=== PATIENT | male | born 1945 | race Caucasian/White ===

== ENCOUNTER 2017-11-25 07:33 | Day surgery (SDC) | payer MEDICARE, SELFPAY ==
[2017-11-25] VITALS (8 sets, daily range): BP systolic 69–115; BP diastolic 42–71; PULSE 59–74; RESP 16; TEMP 35.9–36.4; O2SAT 95–100; BMI 25.2
--- NOTE | 2017-11-25 09:03 | PCM.HP.STD ---
Problem List (1) Screening for intestinal cancer Status: Acute History of Present Illness Date of Admission: 11/25/17 The patient is a 72 year old M who is in a good normal state of health. He denies bright red blood per rectum or melena. He has had a previous colonoscopy by Dr. Houston Walter 10 years ago. He is not on any anticoagulants other than low-dose aspirin which he did stop. He has had no previous anesthesia related or colonoscopy related difficulties. Not had a previous history of deep venous thrombosis. No personal or family history of colon cancer. Past Medical History Allergies No Known Allergies Allergy (Verified 11/23/17 10:15) Home Medications: Ambulatory Orders Medication Instructions Recorded Aspirin [Aspir-Low] 81 mg PO DAILY 11/23/17 Levothyroxine [Synthroid] 175 mcg PO DAILY MDD THYROID 11/23/17 Lisinopril [Prinivil] 10 mg PO DAILY 11/23/17 Ranitidine [Zantac] 150 mg PO PRN PRN 11/23/17 Smoking Status: Never smoker Review of Systems Constitutional: Denies: Weight Change Eyes: Denies: Blurred vision, Vision Change HEENT: Denies: Ear Pain, Eye Pain Cardiovascular: Denies: Chest Pain, Claudication Respiratory: Denies: Cough, Shortness of Breath Gastrointestinal: Denies: Hematemesis, Hematochezia Genitourinary: Denies: Dysuria, Hematuria Musculoskeletal: Denies: Leg Pain Skin: Denies: Jaundice Neurological: Denies: Confusion Psychiatric: Denies: Depression Endocrine: Denies: Change in Body Habitus Hematologic/ Lymphatic: Denies: Easy Bleeding VTE Information - Inpt Only VTE Present on Admission: No Patient Problems: Active and Suspected Problems Screening for intestinal cancer (Acute) - Physical Exam General: Alert, Oriented x3, Cooperative HEENT: Atraumatic Oral: Moist Mucosa Neck: Supple Lungs: Clear to auscultation Cardiovascular: Regular rate Abdomen: Bowel Sounds Present, Soft Extremities: No clubbing Neurological: Cranial nerves II-XII grossly intact Psych/Mental Status: Normal Affect Vital Signs Temp Pulse Resp BP Pulse Ox 97 F L 73 16 115/71 100 11/25/17 08:00 11/25/17 08:00 11/25/17 08:00 11/25/17 08:00 11/25/17 08:00 Oxygen Delivery Method Room Air Weight: 176 lb 2.389 oz Body Mass Index (BMI) 25.2 Assessment/Plan Active and Suspected Problems Screening for intestinal cancer (Acute) Colonoscopy with possible biopsy or polypectomy is indicated. The patient is aware of the technique, benefits, risks and alternatives. He has had an opportunity to ask and have questions answered. We will proceed at his discretion. Cc: Dr. Dakota Bradshaw M.D., F.A.C.S.
--- NOTE | 2017-11-25 09:26 | PCM.OPRPT ---
Problem List (1) Screening for intestinal cancer Status: Acute Report of Operation Date of Procedure: 11/25/17 Pre-Operative Diagnosis: Screening for intestinal malignancy Post-Operative Diagnosis: Normal colon Surgery/Procedure Performed:: Colonoscopy Description of Surgical Findings:: Timeout and informed consent was obtained. 72-year-old gentleman was taken to the endoscopy room. He was placed in a left lateral decubitus position. Throughout the procedure total of 100 mg Demerol and 4 mg of Versed were given as intravenous sedation. Digital rectal exam performed. Normal anal tone. Minimal hemorrhoidal changes. 2+ smooth prostate. Flexible colonoscope inserted in the rectum advanced to a slightly tortuous sigmoid colon. The scope was then advanced through the transverse colon. By placing the patient supine the scope was advanced to the cecum. The cecum ileocecal valve area was felt to be nicely achieved. Bowel prep was adequate. There was still some liquid stool located throughout the colon and some small parts of solid stool. Most of this could be irrigated and aspirated. The scope was carefully withdrawn from the ascending colon transverse colon descending colon and sigmoid colon. Scope was retroflexed within the rectum. No acute abnormalities noted. Excess fluid and air was aspirated free the procedure was completed with the patient tolerating it well. Impression Normal colonoscopy Next screening exam recommended in 10 years. Previous screening exam was 10 years ago. Cc: Dr. Duncan Medications were given at 0909. The scope was inserted 0912. The cecum was reached at 0917. The procedure was completed at 0923. Jhonatan Bradshaw M.D., F.A.C.S. Type of Anesthesia:: IV Sedation
== END 2017-11-25 10:35 | disposition home or self-care (01) ==
LOC: EN 07:37 → AC 07:38
PROVIDERS: Family Provider Family Medicine; PCP Family Medicine; Visit Provider Surgery
PROC: 0DJD8ZZ Inspection of Lower Intestinal Tract, Via Natural or Artificial Opening Endoscopic (ICD-10-PCS; CPT 45378; principal; 2017-11-25 08:40)
DX: Z12.11 Encounter for screening for malignant neoplasm of colon (principal); I10 Essential (primary) hypertension; K21.9 Gastro-esophageal reflux disease without esophagitis; E06.9 Thyroiditis, unspecified; R73.03 Prediabetes; Z79.82 Long term (current) use of aspirin; Z79.899 Other long term (current) drug therapy
CPT/HCPCS: G0121; J7120

== ENCOUNTER 2019-10-22 05:24 | Day surgery (SDC) | payer MEDICARE, SELFPAY ==
--- NOTE | 2019-09-25 01:20 | HP_ITS ---
Intake Vital Signs 09/25/19 Body Mass Index (BMI) 25.2 09/25/19 Height 5 ft 8 in 09/25/19 Weight: 180 lb 09/25/19 Body Mass Index (BMI) 27.3 09/25/19 Blood Pressure 151/77 H 09/25/19 Blood Pressure Location Rt brachial 09/25/19 Blood Pressure Position Sitting 09/25/19 Respiratory Rate 16 09/25/19 Pulse Rate 70 09/25/19 Pulse Source Monitor 09/25/19 Temperature 98.5 F 09/25/19 Temperature Source Oral 09/25/19 Pulse Ox 98 09/25/19 Oxygen Delivery Method room air Intake Visit Reasons: Inguinal Hernia Meat Specialist Required: No Is patient in pain?: No Allergies No Known Allergies Allergy (Verified 11/23/17 10:15) Medications Aspirin [Aspir-Low] 81 mg PO DAILY 11/23/17 [History Confirmed 09/25/19] Levothyroxine [Synthroid] 175 mcg PO DAILY MDD THYROID 11/23/17 [History Confirmed 09/25/19] PFSH Medical History (Updated 09/25/19 @ 13:19 by Russell Bradshaw MD) Right inguinal hernia (Acute) Hypothyroid (Acute) Nocturia (Acute) Internal hemorrhoids (Acute) GERD (gastroesophageal reflux disease) (Acute) Erectile dysfunction (Acute) Diverticulosis (Acute) Surgical History (Updated 09/25/19 @ 13:08 by Renee Whalen) History of hydrocelectomy (Acute) Hx of colonoscopy (Acute) Family History Mother Asthma Father Heart disease High cholesterol Social History (Updated 09/25/19 @ 13:20 by Russell Bradshaw MD) Smoking Status: Never smoker second hand exposure: No alcohol intake: never substance use type: does not use caffeine: Yes what type of physical activity do you participate in: walking, aerobics, weight training frequency: daily HPI HPI HPI: RUSSELL BETH, is a 73 M who presents to the office today for HPI HPI Surgical H&P: Yes HPI: RUSSELL BETH, is a 73 M who presents to the office today for surgical consultation regarding a right inguinal hernia. The patient currently resides at [address] [facility] 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 He was on the side of an embankment and felt a tug and pull and a strain in the right groin. Subsequently he detected up palpable bulge and mass. He has had previous bilateral hydrocele surgery. He has not had any previous inguinal hernia surgery. He is very physically active. ROS General General: No weight change, appetite, fatigue, colon cancer, breast cancer or weakness HEENT HEENT: No difficulty swallowing, eye injury, eye surgery, swollen glands or hoarseness Endo Endocrine: Yes thyroid disease; no diabetes mellitus, thyroid cancer, Hair loss, heat intolerance or cold intolerance Skin Skin: No rash or changing moles Musc Musculoskeletal: Yes back problems and arthritis; no rheumatoid arthritis, gout or joint pain Cardio Cardiovascular: No murmur, pacemaker, heart disease, atrial fibrillation, high blood pressure, heart attack, heart stent, palpitations, shortness of breat with exertion or chest pain Psych Psychiatric: No depression, anxiety or hearing voices Resp Respiratory: No shortness of breath, No sleep apnea, No cough, No COPD, No asthma, No emphysema, No wheezing Gastro Gastrointestinal: Yes abdominal pain, No nausea or vomiting, No diarrhea, No constipation, No blood in stool, No acid reflux, No hemorrhoids, No ulcers, No gallbladder problem, No black,tarry stools Margarito Hematologic: Yes blood thinners, No blood disorders, No bleeding, No anemia, No blood clots Neuro Neurologic: No system reviewed and no additional complaints, except as docu, No as per HPI, No abnormal walking, No abnormal hearing, No abnormal movements, No abnormal speech, No behavioral changes, No burning sensations, No confusion, No seizure-like activity, No unsteadiness, No dizziness, No localized weakness, No frequent falls, No headache(s), No lack of coordination, No loss of vision, No memory loss, No numbness, No other visual disturbances, No radiating pain, No restless legs, No sensory deficit, No fainting, No tingling, No tremor(s), No weakness, No other Exam Const General: cooperative, healthy appearing, comfortable Nutritional Appearance: average body habitus Orientation: alert, awake [facility] Head: normal to inspection Eyes General: appearance normal, both eyes and all related structures Resp Effort & Inspection: normal respiratory effort Auscultation: clear to auscultation bilaterally Cardio Rate: regular rate Rhythm: regular rhythm Heart Sounds: no murmurs GI Palpation: soft, no hepatosplenomegaly Auscultation: normal bowel sounds Other: Testicles are descended bilaterally with palpable hydrocele scar sacs Obvious slightly tender right inguinal hernia but reducible Left groin solid and intact Musc Cervical Spine: normal cervical lordosis Neuro Cognition: normal cognition Extrem General: no calf tenderness bilaterally Assessment & Plan Problems 1. Right inguinal hernia K40.90 Plan Symptomatic right inguinal hernia. The patient is very healthy and physically very active. I propose for him a laparoscopic right inguinal herniorrhaphy with mesh and I discussed technique, benefit, risk and alternatives. He has had an opportunity to ask and have questions answered. I believe that this would allow him the quickest pathway back to a more routine vigorous lifestyle. I very much appreciate the kind opportunity of assisting with his surgical care Cc: Dr. Efrain Bradshaw M.D., F.A.C.S. Coding Level of Care Code Off vis,est,level 4 Diagnoses Right inguinal hernia K40.90 09/25/19 1320 <Electronically signed by Russell riley MD> Date _ Russell Bradshaw MD I have re-examined the patient. There are no clinical changes since date of exam.
[2019-09-25 13:20] VITALS: BMI 25.2
--- NOTE | 2019-10-16 10:31 | EKG12_ITS ---
Test Reason : PREOP Blood Pressure : / mmHG Vent. Rate : 063 BPM Atrial Rate : 063 BPM P-R Int : 182 ms QRS Dur : 094 ms QT Int : 384 ms P-R-T Axes : 036 003 013 degrees QTc Int : 392 ms Normal sinus rhythm with sinus arrhythmia Normal ECG Confirmed by JESSICA MUNROE, HENNY ([id number]), industrial editor SELENE ROMERO ([id number]) on 10/18/2019 11:19:53 AM Referred By: Jhonatan Bradshaw Confirmed By:HENNY LOPEZ MD
[2019-10-16 10:48] LABS: Hemoglobin 14.1 g/dL (13.0-16.5); Mean Corp Hgb Conc 33.6 g/dL (32-36); Mean Corpuscular Hgb 31.9 pg (27.0-32.0); Mean Platelet Vol. 9.5 fl (6.2-12.0); Platelet Count 219 K/mm3 (150-450); RBC Distribution Width CV 12.8 % (11.6-14.6); RBC Distribution Width SD 45.1 fl (35.1-43.9); Red Blood Count 4.42 M/mm3 (4.6-6.2); White Blood Count 6.4 K/mm3 (4.4-11.0)
[2019-10-16 11:32] LABS: Anion Gap 4 (5-15); BUN 20 mg/dL (7-18); BUN/Creat Ratio 21.3 RATIO (10-20); Calcium,Total 8.9 mg/dL (8.5-10.1); Chloride 103 mmol/L (98-107); Creatinine, Serum 0.94 mg/dL (0.70-1.30); EST Glomerular Filtration Rate 84 mL/min (>60); Est Glom Filt Rate - Afr Amer 102 mL/min (>60); Glucose 95 mg/dL (74-106); Potassium 4.2 mmol/L (3.5-5.1); Sodium Level 137 mmol/L (136-145)
[2019-10-22 05:50] VITALS: BP 133/76; PULSE 71; RESP 14; TEMP 36.4; O2SAT 100; BMI 27.0
[2019-10-22] MEDS: Lactated Ringers 1,000 ML 125 ML IV ×2 (06:17→08:34)
[2019-10-22] MEDS: Cefazolin 2 GM in 0.9% Normal Saline 100 ML IV (07:12)
--- NOTE | 2019-10-22 07:18 | DCINST_ITS ---
Discharge Diet: Light diet - advance as tolerated - if you have questions about your diet instructions, please talk to you doctor. Discharge Activity: May Not Drive - for 1 week or while taking narcotic pain medicine. May shower in (days): 1 Lifting Restrictions: 10 pounds Call your doctor if your incision/area has: Continuous Slow Oozing, Sudden Increased Bleeding, Increased Pain/ Swelling, Increased Redness, Foul Smelling Discharge Call your doctor if you observe: Fever of 101 or Higher Suture Line Care: Avoid Pulling/Pushing, Avoid Pinching/Bending Additional Dressing/Incision Instructions:: Change or remove dressing in 4 days. Leave steri-strips in place for 1 week. Allergies/Adverse Reactions: Allergies No Known Allergies Allergy (Verified 10/22/19 05:49) Medications to take at Discharge Aspirin [Aspir-Low] 81 mg PO DAILY 11/23/17 Levothyroxine [Synthroid] 175 mcg PO DAILY MDD THYROID 11/23/17 Orders to be completed after discharge: 12 Lead EKG [CVS] Time Frame: 10/15/19, Facility: [facility], Location: Cardiovascular Services Basic Metabolic Profile (BMP) Time Frame: 10/15/19, Facility: [facility], Location: Laboratory CBC-Complete Blood Cnt No Diff Time Frame: 10/15/19, Facility: [facility], Location: Laboratory Thyroid Stim Hormone (TSH) Time Frame: 10/15/19, Facility: [facility], Location: Laboratory Primary Care Physician: Efrain Peters DO [Primary Care Provider] - Test Results: Test results from this visit will be discussed in further detail at your follow- up appointment, if applicable. Please Follow Up With: Jhonatan Bradshaw MD - [phone] When: Call to make an appointment to be seen in about 10 days.
--- NOTE | 2019-10-22 08:11 | PCM.OPRPT ---
Problem List (1) Right inguinal hernia Status: Acute Report of Operation Date of Procedure: 10/22/19 Pre-Operative Diagnosis: Right inguinal hernia Post-Operative Diagnosis: Indirect right inguinal hernia, cord lipoma Surgery/Procedure Performed:: Laparoscopic right inguinal herniorrhaphy. Bard 3D max right extra-large. Lot number [id number]. Reference #[id number]. Expiry date 06/13/2024. Secure strap. Lot number [id number]. Expiry date June 2021 Description of Surgical Findings:: Timeout and informed consent was obtained. 73-year-old gent was taken the operating placement table underwent general endotracheal intubation esthesia. Ancef 2 g given intravenously. The abdomen sterilely prepped and draped. 0.5% Marcaine was used as local anesthetic. Skin sites were pre-anesthetized. Under laparoscopic control an ilioinguinal nerve block was performed on the right as well. A total of 30 cc was used. A vertical infraumbilical incision was created holding sutures of 0 Vicryl placed varies needle inserted saline drop test performed the abdomen is insufflated CO2 to a pressure of 10 minutes mercury pressure 5-minute trochars in place in the right left lower quadrant the eye was inspected. There appeared to be just a small defect at the left internal ring but not a distinct hernia. There was obviously a indirect right inguinal hernia. No other evidence of superficial gross abnormalities. The peritoneum superior lateral to the internal ring on the right was incised carried medially the peritoneum was completely dissected free. There is a rather sizable hernia sac on the right and this had to be completely dissected free and dose so doing a cord lipoma was identified. This was carefully dissected free and were needed hemostasis was obtained with hemo-lock clips. The direct indirect and femoral area was very nicely identified. Very nice generous dissection was performed. I elected to secure the area with an extra large 3D max mesh. It was placed so as to overlie the defect area and nicely set into the position covering the internal ring and direct space and femoral area. I secured it medially superiorly and laterally with secure strap. I approximated the peritoneum to itself using the same device. Complete obliteration to the mesh was achieved. The trochars were removed under visualization. The abdomen was allowed to deflate of the CO2. Because of the patient's very vigorous lifestyle elected to secure the umbilical site with a [id number] suture of 0 Nurolon. Skin edges approximated up to 4 Monocryl subdermal stitches. Steri-Strips Telfa and OpSite dressings applied. Sponge and instrument and needle counts reported to the surgeon be correct. Blood loss minimal. Specimens none. Drains none. Blood loss minimal. The patient was taken to the recovery area in satisfactory condition without apparent complication Jhonatan Bradshaw M.D., F.A.C.S. Type of Anesthesia:: General Anesthesiologist: Uche Anderson
[2019-10-22] MEDS: Bupivacaine Mpf 0.5% 30 ML VIAL (08:14)
[2019-10-22 08:26] VITALS: BP 129/65; BP 133/76; PULSE 70; RESP 16; TEMP 36.6; O2SAT 94
[2019-10-22 08:30] VITALS: BP 133/76; PULSE 66; RESP 16; O2SAT 98
[2019-10-22 08:45] VITALS: BP 118/57; BP 133/76; PULSE 59; RESP 16; O2SAT 94
[2019-10-22 09:00] VITALS: BP 121/71; BP 133/76; PULSE 60; RESP 16; TEMP 36.2; O2SAT 96
[2019-10-22 10:10] VITALS: BP 116/75; BP 133/76; PULSE 91; RESP 16; TEMP 36.2; O2SAT 95
== END 2019-10-22 10:33 | disposition home or self-care (01) ==
LOC: SDC 05:28 → AC 05:28
PROVIDERS: Family Provider Student in an Organized Health Care Education/Training Program; PCP Student in an Organized Health Care Education/Training Program; Referring Provider Surgery; Visit Provider Surgery
PROC: (CPT 49650; principal; 2019-10-22 06:55)
DX: K40.90 Unilateral inguinal hernia, without obstruction or gangrene, not specified as recurrent (principal); D17.6 Benign lipomatous neoplasm of spermatic cord; E03.9 Hypothyroidism, unspecified; Z79.82 Long term (current) use of aspirin
CPT/HCPCS: 49650; 36415; 80048; 84443; 85027; 93005; J7120; C1781; J2405

== ENCOUNTER 2020-12-15 17:51 | Outpatient (RCR) | payer MEDICARE, SELFPAY | END 2020-12-15 23:59 | LOC: IMMUN 17:51 | PROVIDERS: PCP Student in an Organized Health Care Education/Training Program; Visit Provider Family Medicine | DX: Z23 Encounter for immunization (principal) | CPT/HCPCS: 0011A; 0012A ==

== ENCOUNTER 2024-10-24 14:00 | Emergency (ER) | payer MEDICARE, SELFPAY ==
[2024-10-24 14:01] VITALS: BP 131/77; PULSE 81; RESP 14; TEMP 36.3; O2SAT 98; BMI 23.8
--- NOTE | 2024-10-24 14:02 | ED.RN ---
PT REFUSED TO GIVE SS IN TRIAGE.
--- NOTE | 2024-10-24 14:44 | EX.ED.DYSGE1 ---
HPI History of Present Illness Chief Complaint: Abn Labs Informant: patient Narrative Narrative: Patient is a 78-year-old male presenting for worsening jaundice. 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 He tried to follow-up with his primary care doctor but cannot get in. He ultimately was given referral for [facility] and saw nurse practitioner today. He had outpatient ultrasound and labs which were concerning for obstructive jaundice and he was instructed to come to the emergency room. Patient notes his primary care doctor prescribed Creon 8 days ago which has helped slightly with the symptoms. He notes that he gets intermittent abdominal pain in the right mid abdomen as well as the left mid abdomen/left lower quadrant. He states it is worse when he tries to have a bowel movement. He does not report a change in symptoms with eating. Denies any fever or chills. Denies any nausea or vomiting. Patient states he still has his gallbladder and appendix. Denies any blood in his vomit or stool. He also questions if he could have stomach ulcer this causing the symptoms. [facility] Medical History Right inguinal hernia Hypothyroid Nocturia Internal hemorrhoids GERD (gastroesophageal reflux disease) Erectile dysfunction Diverticulosis Home Medications ?Medication ?Instructions ?Recorded ?Last Taken ?Type aspirin 81 mg tablet,delayed 81 mg PO DAILY 11/23/17 11/20/17 History release levothyroxine 175 mcg tablet 175 mcg PO DAILY 11/23/17 10/22/19 04:30 History 175 MCG pvrskh-bboqeeqo-knxffec cap PO 10/19/24 Unknown History 6,000-19,000-30,000 unit capsule,delayed rel (Creon) Allergy/AdvReac Type Severity Reaction Status Date / Time No Known Allergies Allergy Verified 10/24/24 14:02 Family History Mother Asthma Father Heart disease High cholesterol Surgical History S/P right inguinal hernia repair History of hydrocelectomy Hx of colonoscopy Social History Smoking Status: Never smoker second hand exposure: No alcohol intake: never substance use type: does not use caffeine: Yes what type of physical activity do you participate in: walking, aerobics and weight training frequency: daily ROS ROS ED Constitutional Constitutional ED: Denies chills or fever(s) Cardiovascular Cardiovascular: Denies chest pain Respiratory/Chest Respiratory/Chest: Denies cough or dyspnea Gastrointestinal Gastrointestinal: Reports abdominal pain and diarrhea; Denies melena, nausea or vomiting Genitourinary Genitourinary ED: Denies dysuria Musculoskeletal Musculoskeletal: Denies arthralgias or myalgias Integumentary Reports other Details: jaundice skin Neurologic Neurologic: Denies paresthesias or weakness Hematologic/Lymphatic Hematologic/Lymphatic: Denies easy bleeding or easy bruising EXAM Physical Exam Const Vital Signs: 10/24/24 14:01 10/24/24 14:48 Temperature 97.3 F L Temperature Source Temporal Pulse Rate 81 Respiratory Rate 14 Respiratory Effort Normal Respiratory Pattern Normal Blood Pressure 131/77 H Blood Pressure Mean 95 Pulse Ox 98 Oxygen Delivery Method Room Air Positive well nourished and well developed General Appearance ED: well developed and NAD HEENT Reports moist mucous membranes Eyes PERRL and EOMs intact bilaterally General Eye ED: Yes scleral icterus Neck supple and no JVD Chest Wall inspection of chest normal and palpation of chest normal Resp normal respiratory effort and clear to auscultation bilaterally Cardio regular rate and regular rhythm GI normal to inspection, nondistended, normoactive bowel sounds and non-tender Palpation: soft; Negative for tender or guarding Narrative: Reports dark-colored urine Extremity normal to inspection General Extremety ED: Negative for edema General Extremity: Negative for edema Neuro oriented x3 Sensorium / Orientation: alert Motor Exam: Negative for general weakness Psych mental status grossly normal MDM MDM MDM Narrative Medical decision making narrative: Patient is evaluated for 2 to 3 weeks of change in bowel movements and has developed jaundice. He does have intermittent abdominal pain but is not have any pain at this time. He had outpatient labs which showed elevation of bilirubin, alkaline phosphatase and a mild elevation of his AST and ALT. He had an outpatient ultrasound which showed a contracted stone filled gallbladder, mild intrahepatic biliary ductal dilation and dilated common bile duct. There is no pericholecystic fluid. On arrival patient is resting comfortably. Vital signs are normal. Given that this is more of a painless jaundice concern for obstructing mass. I did speak with Dr. Myers who agrees that patient will likely benefit from admission and ERCP. Will obtain CT to look for any mass and add on CBC and INR. Patient is not have a leukocytosis. CT shows dilated hepatic bile ducts, multiple gallstones and gallbladder wall thickening with a dilated common bile duct and concerning for acute cholecystitis. The story does not really match acute cholecystitis. Patient is given a dose of Zosyn in the emergency room. Discussed the case with Dr. Self as well who feels that he would benefit more from a ECRP and then repeat evaluation to see if he truly needs cholecystectomy emergently. 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 He states he cannot leave her at night and is refusing admission. Is willing to come back tomorrow if needed for CRP. Discussed with Dr. Myers who who understands this. Patient was signed out AGAINST MEDICAL ADVICE with plan to return tomorrow with n.p.o. status for readmission from the ER for ERCP. patient counseled that if he has acute cholecystitis or developing of ascending cholangitis that he could have significant clinically worsening. Patient states if I , I . Patient is acting appropriate and has capacity to make this medical decisions. Instructed to hold his aspirin for the time being as well. Lab Data Labs: Laboratory Results - last 24 hr 10/24/24 14:40 WBC 6.2 RBC 3.62 L Hgb 12.1 L Hct 34.5 L MCV 95.3 H MCH 33.4 H MCHC 35.1 RDW Std Deviation 52.7 H RDW Coeff of Meri 14.9 H Plt Count 278 MPV 9.7 Immature Gran % (Auto) 0.500 Neut % (Auto) 76.7 H Lymph % (Auto) 12.8 L [place] % (Auto) 8.9 Eos % (Auto) 0.8 Baso % (Auto) 0.3 Absolute Neuts (auto) 4.7 Absolute Lymphs (auto) 0.79 L Nucleated RBC % 0 PT 14.6 INR 1.1 Radiography Diagnostic Testing: Clinical Impression(s) from Imaging Studies Abdomen/Pelvis CT 10/24/24 15:10 IMPRESSION: Dilated intrahepatic bile ducts. Multiple gallstones gallbladder wall thickening. Dilated common bile duct. Findings suggestive of acute cholecystitis. Electronically Signed: Darien Nava MD at 15:26 EST , Management Discussion w/another healthcare provider: Roller Hand Discharge Plan Triage Chief Complaint: Abn Labs ED Provider: Molly Lizarraga Dx/Rx/DC Orders Clinical Impression: Obstructive jaundice, Choledocholithiasis Instructions: ED Gallstones with Biliary Colic Prescriptions: No Action Creon 6,000-19,000 -30,000 unit capsule,delayed release(DR/EC) PO levothyroxine 175 MCG tablet 175 mcg PO DAILY MDD THYROID aspirin 81 MG tablet,delayed release (DR/EC) 81 mg PO DAILY Primary Care Provider: Efrain Peters Referrals: Efrain Peters DO [Primary Care Provider] - Activity Restrictions/Additional Instructions: Please return to the emergency room tomorrow between 8:30-9 AM. You will need to recheck into the ER. Do not eat after or drink after midnight. Do not take any more aspirin. Plan is to recheck you back into the ER tomorrow for ERCP around 11 AM. If it anytime you develop fever, worsening pain or further concerns please not hesitate to return to the emergency room. You have signs of obstruction in your common bile duct which is backing up the waist proximal from the liver (bile). This is was causing you to have the yellow discoloration. It is also possible you could have inflammation in your gallbladder or something called cholecystitis/which may require your gallbladder to deep removal. Print Language: Armenian Disposition Disposition: Against Medical Advice Discharge Date/Time: 10/24/24 17:28
[2024-10-24 14:50] LABS: Absolute Lymphocyte Count 0.79 X10^3/uL (0.83-4.51); Absolute Neutrophil Count 4.7 X10^3/uL (2.0-7.7); Basophil# 0.02 X10^3/uL; Basophil% 0.3 % (0-1); Eosinophil# 0.05 X10^3/uL; Eosinophils% 0.8 % (0-5); Hematocrit 34.5 % (40-54); Hemoglobin 12.1 g/dL (13.0-16.5); Lymphocyte # 0.79 X10^3/ul (0.83-4.51); Lymphocyte % 12.8 % (19-41); Mean Corp Hgb Conc 35.1 g/dL (32-36); Mean Corpuscular Hgb 33.4 pg (27.0-32.0); Mean Corpuscular Volume 95.3 fL (80-94); Mean Platelet Vol. 9.7 fl (6.2-12.0); Monocyte# 0.55 X10^3/uL; Monocyte% 8.9 % (0-10); NRBC Flagged by Analyzer 0 % (0-5); Neutrophil # 4.74 X10^3/uL (2.7-7.7); Neutrophil % 76.7 % (47-70); Platelet Count 278 K/mm3 (150-450); RBC Distribution Width CV 14.9 % (11.6-14.6); RBC Distribution Width SD 52.7 fl (35.1-43.9); Red Blood Count 3.62 M/mm3 (4.6-6.2); White Blood Count 6.2 K/mm3 (4.4-11.0)
[2024-10-24 14:58] LABS: International Normalized Ratio 1.1; Prothrombin Time (Protime)PT. 14.6 SECONDS (11.7-14.9)
--- NOTE | 2024-10-24 15:10 | CT_ITS ---
STUDY: CT ABDOMEN AND PELVIS WITH CONTRAST REASON FOR EXAM: Male, 78 years old. Obstructive painless jaundice RADIATION DOSAGE (If Supplied By Facility): CTDIvol = ( 9.92 ) mGy, DLP = ( 533.05 ) mGycm TECHNIQUE: Transaxial images were obtained from the dome of the diaphragm to the symphysis pubis without oral contrast. IV 100mL Isovue-300 was administered. Sagittal and coronal images were reconstructed. Individualized dose optimization techniques were used for this CT. COMPARISON: Comparison is made with prior sonogram done earlier today. FINDINGS: The visualized lung bases are unremarkable. Coronary artery calcification. There is decreased attenuation of the liver consistent with steatosis. Dilated intrahepatic biliary ducts. Gallstones. Thickening of the gallbladder wall. Inflammatory changes are seen along the inferior aspect of the gallbladder suggestive of acute cholecystitis. Dilated common bile duct down to the level of the ampulla bladder. Normal spleen. There is diffuse atrophy of the pancreas. Normal bilateral adrenal glands. Normal right kidney. Normal left kidney. Normal visualized stomach. Normal small intestine. Normal colon. The appendix is visualized and appears normal. There is diffuse atherosclerotic calcification of the abdominal aorta and its major visceral branches, without a demonstrated aneurysm. Normal inferior vena cava. Normal retroperitoneum. Distended urinary bladder. Prostatic enlargement. Normal abdominal wall. There are degenerative changes of the visualized lumbar spine. CT/Abdomen/Pelvis W IV Cont ONLY IMPRESSION: Dilated intrahepatic bile ducts. Multiple gallstones gallbladder wall thickening. Dilated common bile duct. Findings suggestive of acute cholecystitis. Electronically Signed: Darien Nava MD at 15:26 EST ,
--- NOTE | 2024-10-24 16:19 | HP.PCM.HOS_ITS ---
HPI - General General Date of Admission: 10/24/24 Date of Service: 10/24/24 Chief Complaint: RUQ pain, jaundiced HPI Narrative The patient is a 78 y/o M w/ PMHx: Hypothyroidism, GERD, Chronic macrocytic anemia who presents to the [facility] ED on 10/24/24 with history of underlying pancreatic insufficiency with worsening jaundice and right upper quadrant pain with reportedly loose stools and abdominal discomfort primarily in the morning over the past month with no nausea or emesis with some improvement with Creon initiation but still having discomfort primarily in the right upper quadrant radiating towards his left worse with any type of greasy foods with progressively yellowing skin prompting initially GI evaluation on day of presentation with immediate referral to the ED for further evaluation. orkup in the ED included T97.3, heart rate 81, BP 131/77, respiratory rate 14, 98% on room air, CBC with WC 6.2, human 12.1, MCV 95.3, platelet 278 with lymphopenia, unremarkable coag, CMP earlier in the day with sodium 136, potassium 4.1, chloride 102, UN/creatinine 17/0.5, GFR 93, glucose 107, T. bili 6.50, D bili 5.11, AST/ALT 183/162, alk phos 1010, lipase 16, CT abdomen and pelvis performed in the ED with dilated intrahepatic bile ducts, multiple gallstones in the gallbladder with wall thickening, dilated common bile duct with findings suggestive of acute cholecystitis. [facility] Medical History Right inguinal hernia Hypothyroid Nocturia Internal hemorrhoids GERD (gastroesophageal reflux disease) Erectile dysfunction Diverticulosis Home Medications ?Medication ?Instructions ?Recorded ?Last Taken ?Type aspirin 81 mg tablet,delayed 81 mg PO DAILY 11/23/17 11/20/17 History release levothyroxine 175 mcg tablet 175 mcg PO DAILY 11/23/17 10/22/19 04:30 History 175 MCG aaiqyd-bbciemkz-ytvmpef cap PO 10/19/24 Unknown History 6,000-19,000-30,000 unit capsule,delayed rel (Creon) Allergy/AdvReac Type Severity Reaction Status Date / Time No Known Allergies Allergy Verified 10/24/24 14:02 Family History Mother Asthma Father Heart disease High cholesterol Surgical History S/P right inguinal hernia repair History of hydrocelectomy Hx of colonoscopy Social History Smoking Status: Never smoker second hand exposure: No alcohol intake: never substance use type: does not use caffeine: Yes what type of physical activity do you participate in: walking, aerobics and weight training frequency: daily Vital Signs Vital Signs Vital Signs: 10/24/24 14:01 10/24/24 14:48 Temperature 97.3 F L Temperature Source Temporal Pulse Rate 81 Respiratory Rate 14 Respiratory Effort Normal Respiratory Pattern Normal Blood Pressure 131/77 H Blood Pressure Mean 95 Pulse Ox 98 Oxygen Delivery Method Room Air Weight Weight: 161 lb 9.581 oz Body Mass Index (BMI) 23.8 Results Lab / Micro Data 10/24/24 14:40 Labs: Laboratory Results - last 24 hr 10/24/24 14:40: WBC 6.2, RBC 3.62 L, Hgb 12.1 L, Hct 34.5 L, MCV 95.3 H, MCH 33.4 H, MCHC 35.1, RDW Std Deviation 52.7 H, RDW Coeff of Meri 14.9 H, Plt Count 278, MPV 9.7, Immature Gran % (Auto) 0.500, Neut % (Auto) 76.7 H, Lymph % (Auto) 12.8 L, [place] % (Auto) 8.9, Eos % (Auto) 0.8, Baso % (Auto) 0.3, Absolute Neuts (auto) 4.7, Absolute Lymphs (auto) 0.79 L, Nucleated RBC % 0, PT 14.6, INR 1.1 Imaging Radiology Impression Abdomen/Pelvis CT 10/24/24 15:10 IMPRESSION: Dilated intrahepatic bile ducts. Multiple gallstones gallbladder wall thickening. Dilated common bile duct. Findings suggestive of acute cholecystitis. Electronically Signed: Darien Nava MD at 15:26 EST ,
--- NOTE | 2024-10-24 16:34 | ED.RN ---
ptSammy alfaro that he is not staying the night in the hospital
[2024-10-24] MEDS: Piperacil/Tazobactam 3.375 GM in 0.9% Normal Saline (50mL MB+) 50 ML IV (16:43)
== END 2024-10-24 17:28 | disposition left against medical advice (07) ==
PROVIDERS: Emergency Provider Emergency Medicine; PCP Student in an Organized Health Care Education/Training Program; Visit Provider Emergency Medicine
DX: R17 Unspecified jaundice (principal); K80.71 Calculus of gallbladder and bile duct without cholecystitis with obstruction
CPT/HCPCS: 74177; 85025; 85610; 96365; 99282; Q9967; A4216

== ENCOUNTER → 2024-10-24 | Outpatient (CLI) | payer MEDICARE, SELFPAY ==
--- NOTE | 2024-10-24 11:31 | US_ITS ---
STUDY: ABDOMINAL ULTRASOUND - RIGHT UPPER QUADRANT REASON FOR VISIT: Male, 78 years old RUQ pain and jaundice TECHNIQUE: Ultrasound evaluation of the right upper quadrant was performed with real-time and static beach-scale imaging. TECHNICAL QUALITY: Adequate. COMPARISON: None. FINDINGS: Liver: The liver measures 14.8 cm. There is normal echogenicity of the liver. The bile ducts are mildly dilated. There is hepatic color flow. The direction of portal flow is hepatopetal. There is no demonstrated mass lesion. Gallbladder: There is a contracted gallbladder. The gallbladder wall measures 4 mm. There is a negative sonographic Walter''s sign. There is no pericholecystic fluid. There are multiple echogenic structures within the gallbladder, consistent with multiple gallstones. Common Bile Duct (C.B.D.): The common bile duct is dilated and measures 10 mm. Pancreas: There is nonvisualization of the pancreas due to overlying bowel gas. Right Kidney: Normal size of the right kidney. The right kidney measures 10 cm x 4.4 cm x 4.5 cm. Normal renal cortex. The right cortex measures 1.1 cm. There is no demonstrated renal mass or cyst. There is no right hydronephrosis. US/Gallbladder IMPRESSION: Contracted stone filled gallbladder. Mild intrahepatic biliary ductal dilatation. Dilated common bile duct. Electronically Signed: Darien Nava MD at 12:38 EST ,
[2024-10-24 11:38] LABS: ALB/GLOB Ratio 0.6 RATIO (0.9-2.4); AST(SGOT) 193 U/L (15-37); Alanine Aminotransfer ALT/SGPT 162 U/L (16-61); Albumin, Serum 2.9 g/dL (3.2-5.0); Alkaline Phosphatase 1010 U/L (45-117); Anion Gap 6 (5-15); BUN 17 mg/dL (7-18); BUN/Creat Ratio 19.9 RATIO (10-20); Bilirubin, Direct 5.11 mg/dL (0.00-0.30); Calcium,Total 9.2 mg/dL (8.5-10.1); Chloride 102 mmol/L (98-107); Creatinine, Serum 0.85 mg/dL (0.70-1.30); EST Glomerular Filtration Rate 93 mL/min (>60); Est Glom Filt Rate - Afr Amer 112 mL/min (>60); Globulin 4.5 g/dL (2.2-4.2); Glucose 107 mg/dL (74-106); Lipase 16 U/L (13-75); Potassium 4.1 mmol/L (3.5-5.1); Protein, Total 7.4 g/dL (6.4-8.2); Sodium Level 136 mmol/L (136-145)
== END | disposition home or self-care (01) ==
LOC: US 08:54
PROVIDERS: PCP Student in an Organized Health Care Education/Training Program; Referring Provider Student in an Organized Health Care Education/Training Program; Visit Provider Student in an Organized Health Care Education/Training Program
DX: R10.11 Right upper quadrant pain (principal); R17 Unspecified jaundice
CPT/HCPCS: 36415; 76705; 80053; 82248; 83690

== ENCOUNTER 2024-10-25 08:37 | Emergency (ER) | payer MEDICARE, SELFPAY ==
[2024-10-25 08:38] VITALS: BP 133/67; PULSE 86; RESP 18; TEMP 36.2; O2SAT 95; BMI 23.9
--- NOTE | 2024-10-25 08:54 | ED.VIS.GI ---
HPI HPI - GI History of Present Illness Chief Complaint: Abd Pain Narrative Narrative: 78-year-old male presents again to the emergency department after signing out AGAINST MEDICAL ADVICE last evening. He states that he is here to be checked in for ERCP because he has history of obstructive jaundice. He states he has gallstones and one is causing blockage. 8 to 9 days ago he was put on Creon for abdominal pain. He was supposed to be admitted yesterday evening for ERCP, but states that his is a cancer patient and could not be left alone. He states that he was told to return to the emergency department between 830 and 9 to check in for his ERCP by gastroenterology, Dr. Myers. He denies any new symptoms, no fever or chills, no nausea or vomiting. He states his abdominal pain is not present, and that he has not eaten anything since last night as directed. PFSH PFS Medical History Right inguinal hernia Hypothyroid Nocturia Internal hemorrhoids GERD (gastroesophageal reflux disease) Erectile dysfunction Diverticulosis Home Medications ?Medication ?Instructions ?Recorded ?Last Taken ?Type aspirin 81 mg tablet,delayed 81 mg PO DAILY 11/23/17 11/20/17 History release levothyroxine 175 mcg tablet 175 mcg PO DAILY 11/23/17 10/22/19 04:30 History 175 MCG wswfqw-azoaufkc-kdmjslq cap PO 10/19/24 Unknown History 6,000-19,000-30,000 unit capsule,delayed rel (Creon) Allergy/AdvReac Type Severity Reaction Status Date / Time No Known Allergies Allergy Verified 10/25/24 08:38 Family History Mother Asthma Father Heart disease High cholesterol Surgical History S/P right inguinal hernia repair History of hydrocelectomy Hx of colonoscopy Social History Smoking Status: Never smoker second hand exposure: No alcohol intake: never substance use type: does not use caffeine: Yes what type of physical activity do you participate in: walking, aerobics and weight training frequency: daily ROS ROS ED ROS Narrative Review of systems positive for jaundice skin. No fevers or chills, no nausea or vomiting. No abdominal pain. No new symptoms over the last 24 hours. EXAM Physical Exam Narrative Exam Narrative: Afebrile. Vital signs noted. Nontoxic-appearing. Cardiovascular examination reveals a regular rate and rhythm. Lungs are clear to auscultation bilaterally. Abdomen is soft, nontender, with positive bowel sounds. No guarding or rebound. Neurological examination is nonfocal and nonlateralizing. He does have mild jaundice to his skin with scleral icterus as well. Const Vital Signs: 10/25/24 08:38 Temperature 97.1 F L Temperature Source Temporal Pulse Rate 86 Respiratory Rate 18 Blood Pressure 133/67 H Blood Pressure Mean 89 Pulse Ox 95 MDM MDM MDM Narrative Medical decision making narrative: I do not feel that differential diagnosis is applicable as he is returning for ERCP. I reviewed his prior ED record. He was diagnosed with choledocholithiasis and obstructive jaundice. I will repeat the CBC and CMP as well as lipase and saline lock inserted. I discussed the patient with Dr. Myers with gastroenterology. However, in discussion with Dr. Myers, laboratory work and IV are not needed. Patient is to be discharged and report immediately to admissions for outpatient ERCP. Disposition is discharged in stable condition. Discharge Plan Triage Chief Complaint: Abd Pain ED Provider: Barney Serna Dx/Rx/DC Orders Clinical Impression: Obstructive jaundice, Choledocholithiasis, Encounter for medical screening examination Instructions: Gallstones Dc, ED Screening Exam Medical Nonurgent Prescriptions: No Action Creon 6,000-19,000 -30,000 unit capsule,delayed release(DR/EC) PO levothyroxine 175 MCG tablet 175 mcg PO DAILY MDD THYROID aspirin 81 MG tablet,delayed release (DR/EC) 81 mg PO DAILY Primary Care Provider: Efrain Peters Referrals: Efrain Peters, [Primary Care Provider] - Activity Restrictions/Additional Instructions: Report immediately to admissions. You are going to have your ERCP performed as an outpatient. Print Language: Maldivian Disposition Disposition: Home, Self Care
== END 2024-10-25 09:12 | disposition home or self-care (01) ==
LOC: ED 09:08
PROVIDERS: Emergency Provider Emergency Medicine; PCP Student in an Organized Health Care Education/Training Program; Visit Provider Emergency Medicine
DX: K80.51 Calculus of bile duct without cholangitis or cholecystitis with obstruction (principal)
CPT/HCPCS: 99282

== ENCOUNTER 2024-10-25 09:12 | Day surgery (SDC) | payer MEDICARE, SELFPAY ==
[2024-10-25] VITALS (9 sets, daily range): BP systolic 95–134; BP diastolic 61–84; PULSE 57–80; RESP 16–18; TEMP 36.1–36.6; O2SAT 93–99; BMI 23.4
--- NOTE | 2024-10-25 09:25 | EKG12_ITS ---
Test Reason : PREOP Blood Pressure : */* mmHG Vent. Rate : 80 BPM Atrial Rate : 80 BPM P-R Int : 190 ms QRS Dur : 94 ms QT Int : 358 ms P-R-T Axes : 19 -7 -7 degrees QTcB Int : 412 ms Normal sinus rhythm Inferior infarct , age undetermined Abnormal ECG When compared with ECG of 16-Oct-2019 10:45, No significant change was found Confirmed by ADRIANO MUNROE, JEREL ([id number]), development editor URBANO CACERES ([id number]) on 10/30/2024 6:01:21 AM Referred By: Efrain Peters Confirmed By: JEREL OH MD
[2024-10-25] MEDS: 0.9% Normal Saline (1000mL) 1,000 ML 15 ML IV (09:41)
--- NOTE | 2024-10-25 10:14 | PCM.PRE.AN2 ---
ASA Classification* ASA Classification ASA Classification: 2 Assessment & Plan Anesthesia* Anesthesia Assessment Anesthesia Assessment: Discussed sedation and/or anesthesia options, risks, benefits, and alternatives with patient/parents/legal guardian/POA. Questions invited. The patient/parents/legal guardian/POA seems to understand and agrees to proceed with anesthesia plan. Reviewed the physical assessment, medical history, allergy history and patient home medications list prior to surgery/procedure/anesthetic and documented any changes. Performed airway and anesthesia risk assessments. Anesthesia Type Anesthesia Type: General Anesthesia Focused Assessment* Temperature: 97.8 F Pulse Rate: 80 Blood Pressure: 134/82 Respiratory Rate: 16 Pulse Ox: 99 Airway Assessment Mouth opens: >3 cm Mallampati Score: II Focused Labs Anesthesia Preop lab: CBC WBC 6.2 K/mm3 (4.4-11.0) 10/24/24 14:40 RBC 3.62 M/mm3 (4.6-6.2) L 10/24/24 14:40 Hgb 12.1 g/dL (13.0-16.5) L 10/24/24 14:40 Hct 34.5 % (40-54) L 10/24/24 14:40 Plt Count 278 K/mm3 (150-450) 10/24/24 14:40 CHEMISTRY Potassium 4.1 mmol/L (3.5-5.1) 10/24/24 09:04 Sodium 136 mmol/L (136-145) 10/24/24 09:04 BUN 17 mg/dL (7-18) 10/24/24 09:04 Creatinine 0.85 mg/dL (0.70-1.30) 10/24/24 09:04 Glucose 107 mg/dL (74-106) H 10/24/24 09:04 TSH 0.50 uIU/mL (0.358-3.74) 10/16/19 10:25 COAG PT 14.6 SECONDS (11.7-14.9) 10/24/24 14:40 Pre-Assessment Diagnosis/Proposed Procedure Planned Operative Procedure(s): ERCP Anesthesia History 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 When Was Last Pacemaker Check QUESTION #4 FULL TEXT: You/Your Family Experience fever (hyperthermia) with Anesthesia Last Oral Intake Last Oral intake: Last Oral Intake NPO since 05:30 10/25/24 09:30 Meds taken in AM with sips of water? 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 Female No 10/25/24 09:30 HX of Motion Sickness No 10/25/24 09:30 HX of N/V After Surgery No 10/25/24 09:30 Non-Smoker Yes 10/25/24 09:30 Duration of Surgery greater No 10/25/24 09:30 than 60 minutes Number of Risk Factors 1 10/25/24 09:30 PONV Score Low Risk 10/25/24 09:30 Height & Weight Height & Weight: Anesthesia: Height & Weight Height 5 ft 9 in 10/25/24 09:30 Weight: 72.121 kg 10/25/24 09:30 Body Mass Index (BMI) 23.4 10/25/24 09:30 Respiratory Assessment Respiratory Assessment - 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 Has anyone observed you stop No 10/25/24 09:30 breathing during sleep? STOP Results Negative 10/25/24 09:30 QUESTION #5 FULL TEXT : Do you snore loudly (louder than talking or can be heard through closed doors)? 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 Specify any problems Hx of Preganancy in last 3 N/A 10/25/24 09:30 Months Nurse Filling Out Transfusion KNAPOLITA 10/25/24 09:30 & Questions: Date: 10/25/24 10/25/24 09:30 Time: 09:34 10/25/24 09:30 Patient unable to answer at this time (ie. 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 Hx Now Gestational Age (in weeks): EDC: Hx Hx Para Hx Section SAB Active Medications Active Medications: Current Medications Generic Name Dose Route Start Last Admin Trade Name Freq PRN Reason Stop Dose Admin Sodium Chloride 1,000 mls @ 15 mls/hr 10/25/24 09:20 10/25/24 09:41 IV 10/30/24 22:39 15 mls/hr .Q48H STEVIE Administration Protocol PFS Medical History Right inguinal hernia Hypothyroid Nocturia Internal hemorrhoids GERD (gastroesophageal reflux disease) Erectile dysfunction Diverticulosis Home Medications ?Medication ?Instructions ?Recorded ?Last Taken ?Type levothyroxine 175 mcg tablet 125 mcg PO DAILY 11/23/17 10/24/24 History fmogwv-ehsqhqpq-esooghi 4 cap PO Q6H 10/19/24 Unknown History 6,000-19,000-30,000 unit capsule,delayed rel (Creon) Allergy/AdvReac Type Severity Reaction Status Date / Time No Known Allergies Allergy Verified 10/25/24 09:28 Family History Mother Asthma Father Heart disease High cholesterol Surgical History S/P right inguinal hernia repair History of hydrocelectomy Hx of colonoscopy Social History Smoking Status: Never smoker second hand exposure: No alcohol intake: never substance use type: does not use caffeine: Yes what type of physical activity do you participate in: walking, aerobics and weight training frequency: daily Review of Systems (Anesthesia) ROS Narrative System reviewed and no additional complaints, except as documented.
--- NOTE | 2024-10-25 11:00 | FLU_PTH ---
PATIENT: RUSSELL BETH LOC: EN U#:[id number] AGE/SX: 78/M ROOM: RE10/25/[address]: Dr. Quan Myers DO : 1945 BED: DIS: 10/25/2024 SPEC #: [id number] RECD: 10/25/24 13:04 STATUS: BONILLA FREEDOM #: [id number] FATOU: 10/25/24 11:[address]: Quan Myers DEPT: CYTOLOGY RECD BY: Jammie Palma ENTERED: 10/25/24 13:48 SP TYPE: Fluid OTHR DR: Dr. Efrain Peters DO Tissues: A - Biliary tract, NOS B - Biliary tract, NOS Procedures: Special Stain Group II Special Stain Group I Mucicarmine Stain (control) Surgery Specimen Level IV Cytospin Fluid Cytology Other HEADER OPERATION: ERCP, pancreatic stent placement, balloon cholangiogram PRE-OP DIAGNOSIS: Choledocholithiasis, obstructive jaundice, jaundice, right upper quadrant abdominal pain TISSUE SUBMITTED: A- Biliary stricture brushings brush tip, B- Biliary stricture brushings DIAGNOSIS CYTOLOGY A. Biliary stricture brushings brush tip fluid (cytospins and cellblock): Category: Atypical. Diagnosis: Atypical biliary epithelium. See note and comment. B. Biliary stricture brushing (smears): Category: Atypical. Diagnosis: Atypical biliary epithelium. See note and comment. NOTE: The epithelium shows a loss of cell polarity, nuclear enlargement, and crowding and prominent nucleoli are present. No necrosis is present. Definitive features of high-grade dysplasia and malignancy are not present. Immunostains on cellblock shows that the atypical epithelial cells are positive for CK7 and CK19, while negative for CK20 and CDX-2. P53 is scattered positive (wild type) and the proliferative index (Ki-67) is 3%. Clinical radiographic correlation is suggested. Re-biopsy is recommended if clinically indicated. 10/31/2024 COMMENT A. Mucin stain with matched control was used in the evaluation of this case and epithelial cells are positive for mucin. The specimen is sent to [facility] for expert opinion, reviewed by Dr. Acosta and the above diagnosis is rendered. The complete report is viewable in the patient's EMR. CYTOLOGY STUDY Slides are reviewed. CYTOLOGY GROSS A. Received is a brush tip and 0.5 ml of light red-cloudy fluid labeled with the patient's name and and designated per the requisition as Biliary stricture brushings. Submitted for cytology preparation including cell block. B. Received are 3 smears labeled with the patient's name and designated per the requisition as Biliary stricture brushings. Submitted for staining. Mr 10/25/2024 TC:5 CPT: 91712,31218, 62432, 39239
--- NOTE | 2024-10-25 11:27 | PCM.HP.STD ---
HPI - General General Date of Admission: 10/25/24 Date of Service: 10/25/24 Chief Complaint: jaundice HPI Narrative RUSSELL BETH, is a 78 yo male pt here today for acute change in his stool and abd pain. He has been having loose, yellow and sticky stools for the past couple weeks accompanied with RUQ abd pain. On exam, pt skin is visibly yellow and has scleral icterus. He does not have a Walter's sign or tenderness to palpation. He got biochemical workup and it showed a cholestatic pattern of obstruction with a bilirubin of 6.5, alkaline phosphatase of 1000, AST of 500, ALT of 400. His ultrasound shows a common bile duct diameter of 10 mm with gallbladder full of stones. He comes back in today for therapeutic ERCP. [facility] Medical History Right inguinal hernia Hypothyroid Nocturia Internal hemorrhoids GERD (gastroesophageal reflux disease) Erectile dysfunction Diverticulosis Home Medications ?Medication ?Instructions ?Recorded ?Last Taken ?Type levothyroxine 175 mcg tablet 125 mcg PO DAILY 11/23/17 10/24/24 History vfszeo-cthtqopn-dauzyns 4 cap PO Q6H 10/19/24 Unknown History 6,000-19,000-30,000 unit capsule,delayed rel (Creon) Allergy/AdvReac Type Severity Reaction Status Date / Time No Known Allergies Allergy Verified 10/25/24 09:28 Family History Mother Asthma Father Heart disease High cholesterol Surgical History S/P right inguinal hernia repair History of hydrocelectomy Hx of colonoscopy Social History Smoking Status: Never smoker second hand exposure: No alcohol intake: never substance use type: does not use caffeine: Yes what type of physical activity do you participate in: walking, aerobics and weight training frequency: daily ROS Constitutional Constitutional: Denies fatigue, fever(s), poor appetite, weight gain or weight loss Gastrointestinal Gastrointestinal: Denies belching, bloating, change in bowel habits, change in stool character, chewing difficulty, coffee ground emesis, constipation, cramping, diarrhea, dyspepsia, dysphagia, early satiety, excessive flatus, fecal incontinence, heartburn, hematemesis, hematochezia, hemorrhoids, loose stools, melena, nausea, odynophagia, rectal bleeding, tenesmus, vomiting or weight changes Vital Signs Vital Signs Vital Signs: 10/25/24 09:30 10/25/24 09:30 10/25/24 10:15 Temperature 97.8 F 97.8 F Temperature Source Temporal Pulse Rate 80 80 Respiratory Rate 16 16 Respiratory Pattern Normal Blood Pressure 134/82 H 134/82 H Blood Pressure Mean 99 Blood Pressure Source Monitor Blood Pressure Position Semi-Fowlers Blood Pressure Location Left Arm Pulse Ox 99 99 Oxygen Delivery Method Room Air Weight Weight: 159 lb Body Mass Index (BMI) 23.4 Physical Exam Const alert, oriented x3, no apparent distress and healthy appearing General Appearance: cooperative GI normal to inspection, nondistended, normoactive bowel sounds, soft to palpation, non-tender and non-distended Percussion: normal to percussion Rectal Exam: deferred Assessment & Plan Assessment/Plan (1) Choledocholithiasis: (2) Obstructive jaundice: (3) Jaundice: (4) RUQ abdominal pain: PLAN: He was explained alternatives, risk and benefits include understanding bleeding, infection, sepsis, perforation, need for emergent urgent . He will have an ASA of 3.
--- NOTE | 2024-10-25 12:00 | RAD_ITS ---
INDICATION: ERCP EXAMINATION/TECHNIQUE: X-RAY - FL ERCP Biliary and Pancreatic Ductal Systems 13 fluoroscopic images. Total fluoroscopic time 102.5 seconds. Cumulative dose 1.19 mGycm2 COMPARISON: No relevant prior comparison study available FINDINGS: Endoscope noted with cannulation of the pancreatic duct initially with pancreatic duct stent placement. There is then cannulation of the common bile duct. Retrograde injection of contrast into the duct showing dilatation with lower duct narrowing. There is placement of a common bile duct stent. RAD/ERCP Biliary/Pancreas IMPRESSION: Fluoroscopic guidance with placement of common bile duct and pancreatic duct stents. Electronically Signed: Rommel Hargrove MD at 22:36 EST ,
--- NOTE | 2024-10-25 12:39 | OP.ERCP_ITS ---
Patient Name: Jhonatan Vaughn Procedure Date: 10/25/2024 10:45 AM Date of : 1945 Age: 78 Procedure: ERCP Indications: Bile duct stone(s), Evaluation and possible treatment of bile duct stone(s), Jaundice, Elevated liver enzymes Providers: Quan Myers DO Medicines: Monitored Anesthesia Care Patient Profile: This is a 78 year old male. Refer to note in patient chart for documentation of history and physical. Patient has symptoms of acute jaundice. This patient has no history of previous ERCP. This patient has no history of surgical alteration of the upper digestive tract anatomy. Complications: No immediate complications. Procedure: Pre-Anesthesia Assessment: - Prior to the procedure, a History and Physical was performed, and patient medications and allergies were reviewed. The patient is competent. The risks and benefits of the procedure and the sedation options and risks were discussed with the patient. All questions were answered and informed consent was obtained. Patient identification and proposed procedure were verified by the physician in the pre-procedure area. Mental Status Examination: alert and oriented. Airway Examination: normal oropharyngeal airway and neck mobility. Respiratory Examination: clear to auscultation. CV Examination: normal. Prophylactic Antibiotics: The patient does not require prophylactic antibiotics. Prior Anticoagulants: The patient has taken no anticoagulant or antiplatelet agents except for NSAID medication. ASA Grade Assessment: II - A patient with mild systemic disease. After reviewing the risks and benefits, the patient was deemed in satisfactory condition to undergo the procedure. The anesthesia plan was to use general anesthesia. Immediately prior to administration of medications, the patient was re-assessed for adequacy to receive sedatives. The heart rate, respiratory rate, oxygen saturations, blood pressure, adequacy of pulmonary ventilation, and response to care were monitored throughout the procedure. The physical status of the patient was re-assessed after the procedure. After obtaining informed consent, the scope was passed under direct vision. Throughout the procedure, the patient's blood pressure, pulse, and oxygen saturations were monitored continuously. The Duodenoscope was introduced through the mouth, and advanced to the duodenum and used to inject contrast into the bile duct and ventral pancreatic duct. The ERCP was accomplished without difficulty. The patient tolerated the procedure well. Scope In: 12:00:29 PM Scope Out: 12:25:12 PM Total Procedure Duration Time 0 hours 24 minutes 43 seconds Findings: The hotel breakfast attendant film was normal. The esophagus was successfully intubated under direct vision. The scope was advanced to a normal major papilla in the descending duodenum without detailed examination of the pharynx, larynx and associated structures, and upper GI tract. The upper GI tract was grossly normal. The ventral pancreatic duct was deeply cannulated with the short-nosed traction sphincterotome. Contrast was injected. I personally interpreted the pancreatic duct images. There was brisk flow of contrast through the ducts. Image quality was adequate. Contrast extended to the pancreatic duct. Opacification of the entire pancreatic ductal system except for the ventral duct in the head ([place]irsung duct) was successful. The maximum diameter of the ducts was 4 mm. A long 0.025 inch Jagwire was passed into the ventral pancreatic duct. A 4 mm ventral pancreatic sphincterotomy was made with a traction (standard) sphincterotome using ERBE electrocautery. There was no post-sphincterotomy bleeding. One 5 Fr by 7 cm temporary stent was placed 5 cm into the ventral pancreatic duct. Clear fluid flowed through the stent. The stent was in good position. A long 0.025 inch Jagwire was passed into the biliary tree. The short-nosed traction sphincterotome was passed over the guidewire and the bile duct was then deeply cannulated. Contrast was injected. Opacification of the entire biliary tree except for the cystic duct and gallbladder, entire biliary tree except for the gallbladder, entire opacified area, biliary pancreatic junction, lower third of the main bile duct, middle third of the main bile duct, upper third of the main bile duct, main bile duct, common hepatic duct, hepatic duct bifurcation, left and right hepatic ducts and all intrahepatic branches and entire biliary tree was successful. The maximum diameter of the ducts was 10 mm. The middle third of the main bile duct contained a single localized stenosis 6 mm in length. The upper third of the main bile duct, common bile duct, common hepatic duct, hepatic duct bifurcation, left and right hepatic ducts and all intrahepatic branches and entire biliary tree were diffusely dilated, secondary to a stricture. The largest diameter was 12 mm. The lower third of the main bile duct and left main hepatic duct contained filling defect(s) thought to be a stone. A 5 mm biliary sphincterotomy was made with a traction (standard) sphincterotome using ERBE electrocautery. There was no post-sphincterotomy bleeding. The biliary tree was swept with a 12 mm balloon starting at the upper third of the main bile duct, middle third of the main bile duct, lower third of the main duct, bifurcation, left main hepatic duct, right intrahepatic duct(s) and right main hepatic duct. Sludge was swept from the duct. All stones were removed. Cells for cytology were obtained by brushing in the lower third of the main bile duct. One 10 Fr by 7 cm temporary stent with two external flaps and two internal flaps was placed 5 cm into the common bile duct. Bile flowed through the stent. The stent was in good position. Impression: - A filling defect consistent with a stone was seen on the cholangiogram. 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 The stricture was indeterminate. - The upper third of the main bile duct, entire biliary tree, left and right hepatic ducts and all intrahepatic branches, common bile duct and common hepatic duct were dilated, secondary to a stricture. - Choledocholithiasis was found. Complete removal was accomplished by biliary sphincterotomy and balloon extraction. - A pancreatic sphincterotomy was performed. - One temporary stent was placed into the ventral pancreatic duct. - A biliary sphincterotomy was performed. - The biliary tree was swept. - Cells for cytology obtained in the lower third of the main duct. - One temporary stent was placed into the common bile duct. Procedure Code(s): --- Professional --- 06773, Endoscopic retrograde cholangiopancreatography (ERCP); with placement of endoscopic stent into biliary or pancreatic duct, including pre- and post-dilation and guide wire passage, when performed, including sphincterotomy, when performed, each stent [id number], 59, Endoscopic retrograde cholangiopancreatography (ERCP); with placement of endoscopic stent into biliary or pancreatic duct, including pre- and post-dilation and guide wire passage, when performed, including sphincterotomy, when performed, each stent [id number], Endoscopic retrograde cholangiopancreatography (ERCP); with removal of calculi/debris from biliary/pancreatic duct(s) 66884, 26, Endoscopic catheterization of the pancreatic ductal system, radiological supervision and interpretation CPT copyright 2021 [employer]. All rights reserved. The codes documented in this report are preliminary and upon lean consultant review may be revised to meet current compliance requirements. Quan Myers DO 10/25/2024 12:38:52 PM This report has been signed electronically. Number of Addenda: 0 Note Initiated On: 10/25/2024 10:45 AM
--- NOTE | 2024-10-25 12:39 | OP.CCLET_ITS ---
10/25/2024 Efrain Peters [address] [place] [address] Re : ERCP procedure for Jhonatan Vaughn Dear Dr. Peters This procedure was performed on October. My impressions and recommendations are as follows: Impressions : - A filling defect consistent with a stone was seen on the cholangiogram. 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 The stricture was indeterminate. - The upper third of the main bile duct, entire biliary tree, left and right hepatic ducts and all intrahepatic branches, common bile duct and common hepatic duct were dilated, secondary to a stricture. - Choledocholithiasis was found. Complete removal was accomplished by biliary sphincterotomy and balloon extraction. - A pancreatic sphincterotomy was performed. - One temporary stent was placed into the ventral pancreatic duct. - A biliary sphincterotomy was performed. - The biliary tree was swept. - Cells for cytology obtained in the lower third of the main duct. - One temporary stent was placed into the common bile duct. Recommendations : My findings are described in the full procedure note, which is enclosed. If I can be of further assistance, please feel free to contact me at . Sincerely, Quan Myers, 10/25/2024 12:38:52 PM This report has been signed electronically.
--- NOTE | 2024-10-25 12:55 | PCM.POST.ANE ---
Anesthesia: Postop Eval I Current Vital Signs Temperature: 97.9 F Pulse Rate: 60 Blood Pressure: 110/65 Respiratory Rate: 16 Pulse Ox: 97 Oxygen Delivery Method: Room Air Assessment Airway patent: Yes Spontaneous unlabored respirations: Yes Mental status: Asleep nausea: No Vomiting: No Anesthesia Complication: No Fluid Hydration Crystalloid volume administer (ml): 700 Total IV fluid infused: 700 Progress Note Anesthesia document: Postop Eval 1 completed: Yes
--- NOTE | 2024-10-25 13:28 | PCM.POSTANE2 ---
Anesthesia Postop Eval I Sum Postop Eval Completion status Anesthesia document: Postop Eval 1 completed: Yes Anesthesia Postop Eval I Summary Anesthesia Postop Eval I Summary: Anesthesia Postop Eval I: Assessment Summary Airway patent Yes 10/25/24 12:56 [email or web address] Spontaneous unlabored Yes 10/25/24 12:56 [email or web address] respirations Mental status Asleep 10/25/24 12:56 [email or web address] nausea No 10/25/24 12:56 [email or web address] Vomiting No 10/25/24 12:56 [email or web address] Anesthesia Postop Eval I: Fluid Summary Crystalloid volume administer 700 10/25/24 12:56 [email or web address] (ml) Colloids volume administered ( ml) Blood Product volume administered (ml) Total IV fluid infused 700 10/25/24 12:56 [email or web address] Anesthesia Postop Eval I: Summary Notes Anesthesia Complication No 10/25/24 12:56 [email or web address] Anesthesia Complication Comment: Post-operative progress note Anesthesia: Postop Eval II Evaluation Mental status: Awake Pain Level: 0 nausea: No Vomiting: No
== END 2024-10-25 14:18 | disposition home or self-care (01) ==
LOC: EN 09:17 → AC 09:20
PROVIDERS: PCP Student in an Organized Health Care Education/Training Program; Referring Provider Student in an Organized Health Care Education/Training Program; Visit Provider Internal Medicine Gastroenterology
PROC: (CPT 43260; principal; 2024-10-25 10:40)
DX: K80.51 Calculus of bile duct without cholangitis or cholecystitis with obstruction (principal); K83.8 Other specified diseases of biliary tract; E03.9 Hypothyroidism, unspecified; Z79.899 Other long term (current) drug therapy
CPT/HCPCS: 43264; 43274 ×2; 74330; 76000; 88108; 88161; 88305; 88312; 88313; 93005; J2405

== ENCOUNTER → 2024-10-30 | Outpatient (CLI) | payer MEDICARE, SELFPAY ==
[2024-11-01 12:08] LABS: Carbohydrate Ag 19-9 2261 15 U/mL (0-35)
== END | disposition home or self-care (01) ==
LOC: LAB 15:13
PROVIDERS: PCP Student in an Organized Health Care Education/Training Program; Referring Provider Student in an Organized Health Care Education/Training Program; Visit Provider Student in an Organized Health Care Education/Training Program
DX: K83.1 Obstruction of bile duct (principal)
CPT/HCPCS: 36415; 86301

== ENCOUNTER 2024-11-17 20:53 | Inpatient (IN) | payer MEDICARE, SELFPAY ==
[2024-11-17] VITALS (9 sets, daily range): BP systolic 118–132; BP diastolic 63–84; PULSE 96–120; RESP 16–18; TEMP 37.2–39.3; O2SAT 86–98; BMI 22.9
--- NOTE | 2024-11-17 21:26 | EKG12_ITS ---
Test Reason : Blood Pressure : */* mmHG Vent. Rate : 106 BPM Atrial Rate : 106 BPM P-R Int : 136 ms QRS Dur : 98 ms QT Int : 336 ms P-R-T Axes : 32 52 -27 degrees QTcB Int : 446 ms Sinus tachycardia with frequent Premature ventricular complexes Possible Inferior infarct (cited on or before 25-Oct-2024) T wave abnormality, consider lateral ischemia Abnormal ECG Confirmed by JEREL OH MD ([id number]), primer expeditor and drier ARI OLIVA ([id number]) on 11/19/2024 8:20:48 AM Referred By: Molly Lizarraga Confirmed By: JERLE OH MD
[2024-11-17] MEDS: 0.9% Normal Saline (1000mL) 1,000 ML 125 ML IV (21:55)
[2024-11-17 22:09] LABS: Hematocrit 36.9 % (40-54); Hemoglobin 12.7 g/dL (13.0-16.5); Mean Corp Hgb Conc 34.4 g/dL (32-36); Mean Corpuscular Hgb 33.4 pg (27.0-32.0); Mean Corpuscular Volume 97.1 fL (80-94); POSITIVE DIFFERENTIAL YES; POSITIVE MORPHOLOGY YES; Platelet Count 181 K/mm3 (150-450); RBC Distribution Width CV 13.5 % (11.6-14.6); RBC Distribution Width SD 48.2 fl (35.1-43.9); White Blood Count 6.7 K/mm3 (4.4-11.0)
--- NOTE | 2024-11-17 22:10 | EX.ED.DYSGE1 ---
HPI History of Present Illness Chief Complaint: Abd Pain Informant: patient Narrative Narrative: Patient 79-year-old male with history of recent choledocholithiasis with subsequent biliary stricture and stenting on 10/25/[address] Myers. He is presenting today with abdominal pain and nausea/vomiting. My evaluate the patient he is confused. Patient is febrile and tachycardic. He cannot really tell me why he is here or how he is been feeling the past few days. I personally take care of this patient before and he is normally quite alert, oriented and put together. PFSH PFSH Medical History Right inguinal hernia Hypothyroid Nocturia Internal hemorrhoids GERD (gastroesophageal reflux disease) Erectile dysfunction Diverticulosis Home Medications ?Medication ?Instructions ?Recorded ?Last Taken ?Type levothyroxine 175 mcg tablet 125 mcg PO DAILY 11/23/17 10/24/24 History Allergy/AdvReac Type Severity Reaction Status Date / Time No Known Allergies Allergy Verified 11/17/24 20:54 Family History Mother Asthma Father Heart disease High cholesterol Surgical History S/P right inguinal hernia repair History of hydrocelectomy Hx of colonoscopy Social History Smoking Status: Never smoker second hand exposure: No alcohol intake: never substance use type: does not use caffeine: Yes what type of physical activity do you participate in: walking, aerobics and weight training frequency: daily ROS ROS ED Review of Systems ROS Unobtainable: due to mental status Gastrointestinal Gastrointestinal: Reports abdominal pain, nausea and vomiting EXAM Physical Exam Const Vital Signs: 11/17/24 20:54 11/17/24 21:41 11/17/24 21:55 Temperature 98.9 F 102.8 F H Temperature Source Oral Oral Pulse Rate 96 Respiratory Rate 18 Blood Pressure 132/84 H Blood Pressure Mean 100 Pulse Ox 97 86 Oxygen Delivery Method Room Air Room Air Oxygen Flow Rate (L/min) 11/17/24 22:05 11/17/24 22:15 11/17/24 23:00 Temperature Temperature Source Pulse Rate Respiratory Rate Blood Pressure Blood Pressure Mean Pulse Ox 89 95 98 Oxygen Delivery Method Nasal Cannula Nasal Cannula Nasal Cannula Oxygen Flow Rate (L/min) 2 3 3 11/17/24 23:35 11/18/24 01:00 11/18/24 01:02 Temperature 101.1 F H 99.3 F H Temperature Source Oral Pulse Rate 102 H 101 H Respiratory Rate 16 16 Blood Pressure 109/62 109/62 Blood Pressure Mean 77 77 Pulse Ox 97 95 96 Oxygen Delivery Method Nasal Cannula Nasal Cannula Oxygen Flow Rate (L/min) 2 2 11/18/24 01:03 Temperature 99.3 F H Temperature Source Oral Pulse Rate 99 Respiratory Rate 16 Blood Pressure 109/62 Blood Pressure Mean 77 Pulse Ox 96 Oxygen Delivery Method Nasal Cannula Oxygen Flow Rate (L/min) 2 Positive well nourished and well developed Constitutional Narrative: Shivering General Appearance ED: well developed HEENT Reports moist mucous membranes Eyes PERRL General Eye ED: Yes scleral icterus Neck supple Chest Wall inspection of chest normal and palpation of chest normal Resp normal respiratory effort and clear to auscultation bilaterally Cardio regular rhythm and no murmurs Rate: tachycardic GI Inspection: Negative for abdominal distention Palpation: soft and tender epigastric and RUQ Back/Spine no CVA tenderness Extremity normal to inspection General Extremety ED: Negative for edema General Extremity: Negative for edema Neuro Sensorium / Orientation: alert and orientation impaired Motor Exam: general weakness Psych mental status grossly normal Skin General Skin Exam: jaundice MDM MDM MDM Narrative Medical decision making narrative: Patient evaluated for report of abdominal pain, nausea and vomiting. When I evaluated the patient he became acutely confused and encephalopathic. He is febrile with a temperature of 102.8. Does have recent history of choledocholithiasis with known gallstones and biliary stent. Differential includes a sitting cholangitis, influenza, cholecystitis, recurrent choledocholithiasis, pancreatitis, pneumonia. Patient does intermittently desaturate while in the emergency room he does report a history of sleep apnea. Is given Tylenol for his fever with some improvement as well as some improvement of his mentation. Is given IV fluids. Lab work shows a normal white blood cell count with mild anemia hemoglobin 12.7 which appears stable. VBG obtained because of his mental status change ensure that he is not hypercapnic. He has largely normal pH, pCO2 and bicarb. CMP shows normal renal function. He has elevation of his bilirubin, AST and ALT as well as alkaline phosphatase however these are downtrending compared to 10/24/2024. Lipase is acutely elevated today at 145 (was 16 on 10/24). CT of the chest abdomen pelvis obtained given his hypoxia as well as report of abdominal pain with nausea and vomiting. CT shows multiple abnormalities but does show findings concerning for acute cholecystitis . Patient started on Zosyn in the emergency room. Case is discussed with surgeon, Dr. Ross. Blood cultures are added on. Influenza swab is negative. Patient does go on to tell nursing that he has been having some urinary frequency and dysuria. Will add on urine test and culture. General surgery reviewed the films as well as labs. Concern for a sitting cholangitis versus acute cholecystitis. Recommends discussing with GI and admitting to medicine as patient also has criteria for sepsis. Is given 30 cc/kg fluid bolus. Patient mentation has improved with fever control. Is agreeable with admission at this time. Lab Data Attestation: I reviewed the patient's lab results. Labs: Laboratory Results - last 24 hr 11/17/24 11/17/24 11/17/24 21:54 21:55 23:58 WBC 6.7 RBC 3.80 L Hgb 12.7 L Hct 36.9 L MCV 97.1 H MCH 33.4 H MCHC 34.4 RDW Std Deviation 48.2 H RDW Coeff of Meri 13.5 Plt Count 181 MPV 9.0 Neut % (Auto) Not Reportable Lymph % (Auto) Not Reportable [place] % (Auto) Not Reportable Absolute Neuts (auto) 6.3 Absolute Lymphs (auto) 0.26 L Total Counted 100 Neutrophils % (Manual) 85 H Band Neutrophils % 9 H Lymphocytes % (Manual) 4 L Monocytes % (Manual) 2 Diff Path Review May foll Platelet Estimate ADEQUATE RBC Morphology NORM C+C Sodium 135 L Potassium 3.8 Chloride 100 Carbon Dioxide 27.0 Anion Gap 8 BUN 17 Creatinine 0.98 Estim Creat Clear Calc 66.62 Est GFR (MDRD) Af Amer 96 Est GFR (MDRD) Non-Af 79 BUN/Creatinine Ratio 17.4 Glucose 132 H Lactic Acid 3.1 H* Calcium 8.8 Total Bilirubin 3.50 H Direct Bilirubin 2.67 H AST 161 H ALT 109 H Alkaline Phosphatase 488 H Total Protein 7.1 Albumin 2.9 L Globulin 4.2 Lipase 145 H Urine Color Yellow Urine Clarity Clear Urine pH 6.5 Ur Specific [place] 1.005 Urine Protein 15 H Urine Glucose (UA) Normal Urine Ketones Negative Urine Occult Blood 10 H Urine Nitrite Negative Urine Bilirubin 1 H Urine Urobilinogen 1 H Ur Leukocyte Esterase 25 H Urine RBC 0 SEEN Urine WBC 0 SEEN Ur Squamous Epith Cells 0 SEEN Urine Bacteria 0 SEEN Urine Mucus 0 SEEN ABG Data ABG results: ABG 11/17/24 22:10 Specimen Type KAILEY Sample Site Not entered O2 % 3.0 VBG pH 7.45 H VBG pO2 54 H VBG HCO3 25 VBG Total CO2 26 VBG O2 Sat (Calc) 89 H VBG Base Excess 1 POC Mix VBG pCO2 Pt Tmp 35.3 L O2 Delivery Device Cannula Radiography Diagnostic Testing: Clinical Impression(s) from Imaging Studies Chest/Abdomen/Pelvis CT 11/17/24 23:17 IMPRESSION: 1. Extensive coronary artery atherosclerotic calcific disease. 2. Hypoventilatory changes, dependent lungs. 3. Internal biliary and pancreatic duct stents. 4. Periportal edema concerning for hepatitis/inflammation. 5. Pneumobilia. 6. Prominent hepatic duct. 7. Findings concerning for acute cholecystitis. 8. Atherosclerotic calcific disease of the aortoiliac arteries. 9. Atherosclerotic calcific disease of the visceral arteries. 10. Cystic changes involving the bilateral hips and osseous pelvis. 11. Other nonacute findings detailed above. Reading Location: [facility] Rhythm Strip Rhythm Strip: Sinus Tach Rate: 106 Ectopy: PVC(s) EKG Initial EKG: Attestation: I personally reviewed and interpreted this EKG as follows: Interpretation: Sinus Tachycardia Comments: Sinus tachycardia at a rate of 106 with PVCs frequently Normal axis Normal ST segments with T wave inversions in lateral and inferior leads Prior EKG tracings: available for review Prior: Changed (now tachycardia with PVCs. New T wave inversion) Management Discussion w/another healthcare provider: Hospitalist and [employer] Discharge Plan Dx/Rx/DC Orders Clinical Impression: Ascending cholangitis, Jaundice, Sepsis, Fever Disposition Disposition: Acute Care Hospital [facility]
[2024-11-17 22:14] LABS: Blood Gas Specimen Type VEN; O2 Delivery Device Cannula; SITE Not entered; VBG BASE EXCESS 1 mmol/L (-1.0-3.5); VBG Bicarbonate 25 mmol/L (22-26); VBG PO2 54 mmHg (25-40); VBG SO2 89 % (50-70); VBG TCO2 26 mmol/L (23-33); VBG pCO2 35.3 mmHg (41-51); VBG pH 7.45 (7.32-7.42)
[2024-11-17 22:27] LABS: AST(SGOT) 161 U/L (15-37); Alanine Aminotransfer ALT/SGPT 109 U/L (16-61); Albumin, Serum 2.9 g/dL (3.2-5.0); Alkaline Phosphatase 488 U/L (45-117); Anion Gap 8 (5-15); BUN 17 mg/dL (7-18); BUN/Creat Ratio 17.4 RATIO (10-20); Bilirubin, Direct 2.67 mg/dL (0.00-0.30); Calcium,Total 8.8 mg/dL (8.5-10.1); Chloride 100 mmol/L (98-107); Creatinine, Serum 0.98 mg/dL (0.70-1.30); EST Glomerular Filtration Rate 79 mL/min (>60); Est Glom Filt Rate - Afr Amer 96 mL/min (>60); Estimated Creatinine Clearance 66.62 ml/min; Globulin 4.2 g/dL (2.2-4.2); Glucose 132 mg/dL (74-106); Lipase 145 U/L (13-75); Potassium 3.8 mmol/L (3.5-5.1); Protein, Total 7.1 g/dL (6.4-8.2); Sodium Level 135 mmol/L (136-145)
[2024-11-17] MEDS: Acetaminophen 325 MG Tablet 650 MG PO (22:31)
[2024-11-17 22:49] LABS: Lactic Acid 3.1 mmol/L (0.4-1.9)
[2024-11-17 22:49] LABS: Lymphocyte 4 % (19-41); Monocyte 2 % (0-10); Neutrophil-Band 9 % (0-5); Neutrophil-Segmented 85 % (47-70); Total Cells Counted 100 (MANUAL DIFF)
[2024-11-17 22:50] LABS: Platelet Estimate ADEQUATE (ADEQ); Red Cell Morphology NORM C+C NORMAL (NORM C&C)
[2024-11-17 22:51] LABS: Differential Indicated MANUAL DIFF
[2024-11-17 22:55] LABS: Absolute Neutrophil Count 6.3 X10^3/uL (2.0-7.7)
[2024-11-17 22:56] LABS: Absolute Lymphocyte Count 0.26 X10^3/uL (0.83-4.51)
--- NOTE | 2024-11-17 23:17 | CT_ITS ---
PROCEDURE: CT CHEST, ABDOMEN,, PELVIS WITH CONTRAST REASON FOR EXAM: Abdominal pain. Nausea and vomiting for 1 day. TECHNIQUE: Contiguous axial scans 3.75 mm slice thicknesses with intravenous and without oral contrast enhancement. One or more dose reduction techniques were used (e.g., Automated exposure control, adjustment of the mA and/or kV according to patient size, use of iterative reconstruction technique). CONTRAST: Isovue 300, 98 mL. COMPARISON: No relevant prior FINDINGS: CHEST: Lines and tubes: Unremarkable. Mediastinum: No evidence of mediastinal hemorrhage. Heart: Normal heart size. No pericardial effusion.. Extensive coronary artery calcifications. Thoracic Aorta: No aneurysm. No dissection. Lungs and Airways: Old healed granulomatous changes. No suspicious masses or airspace consolidation. Hypoventilatory changes in the dependent lungs. Pleura: No pleural effusion. No pneumothorax. Bones: No acute osseous abnormality identified. ABDOMEN AND PELVIS: Liver: An internal biliary stent. Periportal edema. Pneumobilia. Prominent hepatic duct. Gallbladder: Marked gallbladder wall thickening. Pericholecystic edema. Spleen: Unremarkable. Pancreas: An internal pancreatic duct stent. Adrenals: Unremarkable. Kidneys: Unremarkable. Bladder: Unremarkable. Reproductive Organs: Unremarkable. Bowel: Unremarkable. Vasculature: Major vascular structures are unremarkable. Atherosclerotic calcifications of the splenic artery. Moderate atherosclerotic calcification of the aorta. Moderate atherosclerotic calcific disease of the iliac arteries. Atherosclerotic calcifications are seen at the origins of the celiac and superior mesenteric arteries. Peritoneum / Retroperitoneum: No free fluid. No free air. Anterior abdominal wall: Unremarkable. Bones: No acute osseous abnormality identified. Dextroscoliosis. Multilevel spondylosis and degenerative disc disease. Cystic changes are noted in the bilateral hips in iliac wings. CT/CT Chest, Abd, Pel w/Contrast IMPRESSION: 1. Extensive coronary artery atherosclerotic calcific disease. 2. Hypoventilatory changes, dependent lungs. 3. Internal biliary and pancreatic duct stents. 4. Periportal edema concerning for hepatitis/inflammation. 5. Pneumobilia. 6. Prominent hepatic duct. 7. Findings concerning for acute cholecystitis. 8. Atherosclerotic calcific disease of the aortoiliac arteries. 9. Atherosclerotic calcific disease of the visceral arteries. 10. Cystic changes involving the bilateral hips and osseous pelvis. 11. Other nonacute findings detailed above. Reading Location: [facility]
[2024-11-17] MEDS: 0.9% Normal Saline (1000mL) 1,000 ML 999 ML IV (23:35)
[2024-11-17] MEDS: Piperacil/Tazobactam 3.375 GM in 0.9% Normal Saline (50mL MB+) 50 ML IV (23:49)
[2024-11-18] VITALS (31 sets, daily range): BP systolic 90–119; BP diastolic 49–73; PULSE 78–102; RESP 13–22; TEMP 36.2–37.9; O2SAT 90–98; BMI 25.3; BMI 25.2
[2024-11-18 00:07] LABS: Bacteria 0 SEEN /hpf (None Seen); Mucous, Urine 0 SEEN /hpf (<or=2+); Red Blood Cells-Urine 0 SEEN /hpf (0-5); Squamous Epithelial Cells - UA 0 SEEN /hpf (0-5); White Blood Cells 0 SEEN /hpf (0-5)
[2024-11-18 00:15] LABS: Color, Urine Yellow (Yellow); Glucose, Dipstick Normal (Normal); Ketone-Dipstick Negative (Negative); Leukocyte Esterase-Dipstick 25 /ul (Negative); Nitrite-Dipstick Negative (Negative); Occult Blood-Urine 10 /ul (Negative); Protein-Dipstick 15 mg/dl (Negative); Specific Gravity, Urine 1.005 (1.002-1.030); Urine Clarity Clear (Clear); Urine Urobilinogen 1 mg/dl (Normal); Urine pH 6.5 (5.0 - 8.0)
[2024-11-18 00:26] LABS: Urine Bilirubin Dipstick 1 mg/dL (Negative)
--- NOTE | 2024-11-18 00:53 | HP.PCM.HOS_ITS ---
[facility] - General General Date of Admission: 11/18/24 Date of Service: 11/18/24 Chief Complaint: Fever, Confusion, abdominal Pain and Nausea with Vomiting. HPI Narrative RUSSELL MCGEE, is a 79 M with a past medical history of with a past medical history of hypothyroidism; on levothyroxine, erectile dysfunction, history of diverticulosis, GERD; not on treatment, history of nocturia, history of internal hemorrhoids, history of right inguinal hernia; s/p repair, history of hydrocelectomy, OA and history of choledocholithiasis with RUQ abdominal pain and jaundice with loose yellow sticky stools ~2 weeks complicated by biochemical workup that showed cholestatic pattern of obstruction with Hyperbilirubinemia of 6.5 mg/dL, with direct bilirubin of 5.11 mg/dL alkaline phosphatase of 1,010 U/L, AST of 193 U/L and ALT of 162 U/L with ultrasound showing CBD duct diameter of ~10 mm with gallbladder full of stones; s/p ERCP with pancreatic and biliary sphincterotomies were performed along with sweeping of the biliary tree by Dr. Myers of gastroenterology here on October 24, 2024 who presents to [facility] ER once again complaining of abdominal pain. Mr. Mcgee was noted to be confused at the time of his initial ER evaluation so information was primarily gathered from chart, medical staff and computer. According to the records the patient was complaining of abdominal pain with nausea and vomiting with bilious emesis. He was noted to be febrile at 101 ?F with a mild sinus tachycardia at 102 bpm with his oxygen saturation dropping to 86% on RA causing him to be started on 2L NC shortly after admission. Patient then underwent CT scan of the abdomen pelvis which was positive for evidence of Acute Cholecystitis (with additional concern for ascending cholangitis) with periportal edema concerning for hepatitis/inflammation and pneumobilia with a prominent hepatic duct and internal biliary and pancreatic duct stents noted c omplicated by laboratory evidence of Lactic Acidosis of 3.1 mmol/L present on admission concerning for Sepsis along with additional corresponding laboratory evidence with Hyperbilirubinemia of 3.5 mg/dL, direct bilirubin of 2.67 mg/dL, AST of 161 U/L, ALT of 109 U/L and alkaline phosphatase of 488 units/L in addition to a mildly elevated serum Lipase 145 U/L suggestive of possible early pancreatitis and a normal ammonia level of 28 umol/L. Patient was also noted to have an VBG of 7.45/ pCO2 26 mmol/L/ pO2 54 mmHg/ bicarbonate 25 mmol/L at 89% on 2L NC consistent with acute Respiratory Insufficiency along with clinical evidence of Acute Metabolic Encephalopathy. The ER physician contacted the general surgeon on-call who wanted to remain in a consultative role due to presence of biliary stents. Supervisor [employer] on-call was contacted with plan for ERCP and for the hospitalist service to admit this patient due to his medical complexity. He was then admitted to the ICU for ongoing treatment for a stay that is expected to extend beyond 2 midnights. [facility] Medical History Non-smoker Hypertension Right inguinal hernia Hypothyroid Nocturia Internal hemorrhoids GERD (gastroesophageal reflux disease) Erectile dysfunction Diverticulosis Home Medications ?Medication ?Instructions ?Recorded ?Last Taken ?Type levothyroxine 175 mcg tablet 125 mcg PO DAILY 11/23/17 10/24/24 History Allergy/AdvReac Type Severity Reaction Status Date / Time No Known Allergies Allergy Verified 11/17/24 20:54 Family History Mother Asthma Father Heart disease High cholesterol Surgical History S/P right inguinal hernia repair History of hydrocelectomy Hx of colonoscopy Social History Smoking Status: Never smoker second hand exposure: No alcohol intake: never substance use type: does not use caffeine: Yes what type of physical activity do you participate in: walking, aerobics and weight training frequency: daily ROS ROS Narrative Full review of systems was not possible due to patient's metabolic encephalopathy and confusion. Vital Signs Vital Signs Vital Signs: 11/17/24 20:54 11/17/24 21:41 11/17/24 21:55 Temperature 98.9 F 102.8 F H Temperature Source Oral Oral Pulse Rate 96 Respiratory Rate 18 Blood Pressure 132/84 H Blood Pressure Mean 100 Pulse Ox 97 86 Oxygen Delivery Method Room Air Room Air Oxygen Flow Rate (L/min) 11/17/24 22:05 11/17/24 22:15 11/17/24 23:00 Temperature Temperature Source Pulse Rate Respiratory Rate Blood Pressure Blood Pressure Mean Pulse Ox 89 95 98 Oxygen Delivery Method Nasal Cannula Nasal Cannula Nasal Cannula Oxygen Flow Rate (L/min) 2 3 3 11/17/24 23:35 Temperature 101.1 F H Temperature Source Oral Pulse Rate Respiratory Rate Blood Pressure Blood Pressure Mean Pulse Ox 97 Oxygen Delivery Method Nasal Cannula Oxygen Flow Rate (L/min) 2 Weight Weight: 164 lb 8 oz Body Mass Index (BMI) 22.9 Physical Exam Const alert, no apparent distress and average body habitus Constitutional Narrative: Patient is confused but alert with a chronically ill appearance. General Appearance: cooperative Orientation / Consciousness: confused HEENT normocephalic, head/scalp atraumatic, hearing grossly normal bilaterally and moist oral mucous membranes Eyes PERRL and EOMs intact bilaterally Eyes Narrative: Patient was noted to have scleral icterus. Neck no lymphadenopathy and supple Resp Resp Narrative: Diminished breath sounds throughout. Cardio regular rate and regular rhythm GI normal to inspection, nondistended, normoactive bowel sounds, soft to palpation, non-tender and non-distended Extremity normal to inspection, full ROM and no clubbing, cyanosis or edema Skin Skin Narrative: Patient has jaundice but no signs of rash, wounds or abscess. Neuro CN's II-XII intact bilaterally, moves all extremities and no focal motor deficits Sensorium / Orientation: awake, alert and oriented to person Speech: speech normal Psych affect normal Results Medical Records Data Attestation: I reviewed the patient's medical records Lab / Micro Data Attestation: I reviewed the patient's lab results. 11/17/24 21:54 11/17/24 21:54 Labs: Laboratory Results - last 24 hr 11/17/24 21:54: WBC 6.7, RBC 3.80 L, Hgb 12.7 L, Hct 36.9 L, MCV 97.1 H, MCH 33.4 H, MCHC 34.4, RDW Std Deviation 48.2 H, RDW Coeff of Meri 13.5, Plt Count 181, MPV 9.0, Neut % (Auto) Not Reportable, Lymph % (Auto) Not Reportable, [place] % (Auto) Not Reportable, Absolute Neuts (auto) 6.3, Absolute Lymphs (auto) 0.26 L, Total Counted 100, Neutrophils % (Manual) 85 H, Band Neutrophils % 9 H, L ymphocytes % (Manual) 4 L, Monocytes % (Manual) 2, Diff Path Review February, Platelet Estimate ADEQUATE, RBC Morphology NORM C+C, Sodium 135 L, Potassium 3.8, Chloride 100, Carbon Dioxide 27.0, Anion Gap 8, BUN 17, Creatinine 0.98, Estim Creat Clear Calc 66.62, Est GFR (MDRD) Af Amer 96, Est GFR (MDRD) Non-Af 79, BUN/Creatinine Ratio 17.4, Glucose 132 H, Calcium 8.8, Total Bilirubin 3.50 H, Direct Bilirubin 2.67 H, AST 161 H, ALT 109 H, Alkaline Phosphatase 488 H, Total Protein 7.1, Albumin 2.9 L, Globulin 4.2, Lipase 145 H 11/17/24 21:55: Lactic Acid 3.1 H* 11/17/24 23:58: Urine Color Yellow, Urine Clarity Clear, Urine pH 6.5, Ur Specific [place] 1.005, Urine Protein 15 H, Urine Glucose (UA) Normal, Urine Ketones Negative, Urine Occult Blood 10 H, Urine Nitrite Negative, Urine Bilirubin 1 H, Urine Urobilinogen 1 H, Ur Leukocyte Esterase 25 H, Urine RBC 0 SEEN, Urine WBC 0 SEEN, Ur Squamous Epith Cells 0 SEEN, Urine Bacteria 0 SEEN, Urine Mucus 0 SEEN Micro: Microbiology 11/17/24 21:55 Mucosa - Nasopharyngeal SARS-CoV-2, Influenza & RSV (PCR) - Final ABG Data ABG results: ABG 11/17/24 22:10 Specimen Type KAILEY Sample Site Not entered O2 % 3.0 VBG pH 7.45 H VBG pO2 54 H VBG HCO3 25 VBG Total CO2 26 VBG O2 Sat (Calc) 89 H VBG Base Excess 1 POC Mix VBG pCO2 Pt Tmp 35.3 L O2 Delivery Device Cannula Rhythm Strip Rhythm Strip: Sinus Tach Rate: 106 Ectopy: PVC(s) Imaging Radiology Impression Chest/Abdomen/Pelvis CT 11/17/24 23:17 IMPRESSION: 1. Extensive coronary artery atherosclerotic calcific disease. 2. Hypoventilatory changes, dependent lungs. 3. Internal biliary and pancreatic duct stents. 4. Periportal edema concerning for hepatitis/inflammation. 5. Pneumobilia. 6. Prominent hepatic duct. 7. Findings concerning for acute cholecystitis. 8. Atherosclerotic calcific disease of the aortoiliac arteries. 9. Atherosclerotic calcific disease of the visceral arteries. 10. Cystic changes involving the bilateral hips and osseous pelvis. 11. Other nonacute findings detailed above. Reading Location: [facility] Assessment & Plan Assessment/Plan (1) Sepsis: QUALIFIERS: Sepsis acute organ dysfunction status: with acute organ dysfunction Sepsis type: sepsis due to unspecified organism Severe sepsis acute organ dysfunction type: encephalopathy Severe sepsis shock status: without septic shock Qualified Code(s): A41.9 - Sepsis, unspecified organism; R65.20 - Severe sepsis without septic shock; G93.41 - Metabolic encephalopathy (2) Lactic acidosis: (3) Acute cholecystitis with acute cholangitis: (4) Pneumobilia: (5) Hepatitis: (6) Hyperbilirubinemia: (7) Transaminitis: (8) History of biliary duct stent placement: (9) Respiratory insufficiency: (10) Acute metabolic encephalopathy: PLAN: Plan 1. CT evidence of Acute Cholecystitis with additional suspicion for Ascending Cholangitis with Pneumobilia with a prominent hepatic duct and internal biliary and pancreatic duct stents noted in addition to periportal edema concerning for Hepatitis/inflammation complicated by laboratory evidence of Lactic Acidosis of 3.1 mmol/L present on admission with concerning for Sepsis with fever of 101 ?F with a mild sinus tachycardia at 102 bpm with additional corresponding laboratory evidence with Hyperbilirubinemia of 3.5 mg/dL, direct bilirubin of 2.67 mg/dL, AST of 161 U/L, ALT of 109 U/L and alkaline phosphatase of 488 units/L in addition to a mildly elevated serum Lipase 145 U/L suggestive of possible early pancreatitis - Admit to ICU for treatment under the sepsis protocol for this postprocedure complication. Neither of patient's primary problems are amenable to medical treatment but due to his medical complexity he was admitted to the hospitalist service with GI and general surgery consultation pending in the a.m. and appreciated in advance. Keep strict n.p.o. for upcoming ERCP. Give Protonix 40 mg IV daily. Give Zofran IV as needed for nausea and vomiting. Give Phenergan IM as needed for breakthrough nausea and vomiting. There was no current mention of inflammation of pancreas noted on CT. 2. History of choledocholithiasis with RUQ abdominal pain and jaundice with loose yellow sticky stools ~2 weeks complicated by biochemical workup that showed cholestatic pattern of obstruction with hyperbilirubinemia of 6.5 mg/dL, alkaline phosphatase of 1000, AST of 500, ALT of 400 with ultrasound showing CBD duct diameter of ~10 mm with gallbladder full of stones; s/p ERCP with pancreatic and biliary sphincterotomies were performed along with sweeping of the biliary tree by Dr. Myers of gastroenterology here on October 24, 2024 complicating #1 - Noted. 3. Respiratory Insufficiency compounding #1 & #[address] scan only showing hypoventilatory changes in dependent portion of lungs and no active infiltrate with additional laboratory evidence including VBG of 7.45/ pCO2 26 mmol/L/ pO2 54 mmHg/ bicarbonate 25 mmol/L at 89% on 2L NC - Wean supplemental oxygen as tolerated. 4. Acute Metabolic Encephalopathy arising from #1 - #3 - Ammonia level was not checked on admission in ER but is pending at this time. Check TSH, B12, folate, UDS and YENIFER to evaluate for other potential reversible causes of confusion. Otherwise we will continue treatment plan as outlined above and monitor for improvement. We will also minimize SOLUTION [employer]INEER-active medications in an effort to allow sensorium to clear. 5. History of Hypothyroidism; on levothyroxine - Continue levothyroxine IV at ~50% of previous oral dose and check TSH. 6. Erectile dysfunction - Stable. 7. History of diverticulosis - Noted. 8. GERD; not on treatment as outpatient - Started on pantoprazole IV for #1. 9. History of nocturia - Noted. 10. History of internal hemorrhoids - Noted. 11. History of Right inguinal hernia; s/p repair - Noted. 12. History of hydrocelectomy - Noted. 13. OA - Stable. 14. DVT prophylaxis - SCD's only with impending ERCP and possible cholecystectomy. Total time: Approximately (but not less than) 75 minutes. Sepsis Attestation Sepsis Alert: Yes Sepsis Attestation: Agree w/Sepsis Date exam was performed: 11/18/24 Time exam was performed: 01:00 Possible Source of Sepsis: GI tract/intra-abdominal and Implantable device Sepsis Organ Dysfunction Criteria Present: Lactic Acid > 2 mmol/L and New/Unexplained change in mental status Supportive Findings: Patient was noted to have fever of 101.2 ?F with mild sinus tachycardia, altered mental status and CT evidence of acute cholecystitis with concern for ascending cholangitis after recent common bile duct placement approximately 3 weeks ago. Fluid Resuscitation Fluid resuscitation indicated?: Yes Fluid Resuscitation ordered: 30 ml/kg fluid bolus ordered Amount of fluid ordered: 2 Sepsis Note Date exam was performed: 11/18/24 Time exam was performed: 04:00 Sepsis Attestation: Sepsis re-evaluation was performed Response to fluids: Fluid responsive hypotension Charges/Coding Visit Charges Inpatient E&M: 97032 Init Hosp L3
[2024-11-18] MEDS: 0.9% Normal Saline (1000mL) 1,000 ML 999 ML IV (01:05)
[2024-11-18 02:20] LABS: Reflex Lactate? Y
[2024-11-18] MEDS: 0.9% Normal Saline (1000mL) 1,000 ML 100 ML IV ×2 (03:25→13:17)
[2024-11-18 04:02] LABS: Lactic Acid 1.8 mmol/L (0.4-1.9)
[2024-11-18] MEDS: Piperacil/Tazobactam 3.375 GM in 0.9% Normal Saline (50mL MB+) 50 ML IV ×3 (05:33→20:51)
[2024-11-18 08:08] LABS: ALB/GLOB Ratio 0.7 RATIO (0.9-2.4); AST(SGOT) 172 U/L (15-37); Alanine Aminotransfer ALT/SGPT 117 U/L (16-61); Albumin, Serum 2.3 g/dL (3.2-5.0); Alkaline Phosphatase 383 U/L (45-117); Anion Gap 8 (5-15); BUN 15 mg/dL (7-18); BUN/Creat Ratio 17.7 RATIO (10-20); Calcium,Total 8.1 mg/dL (8.5-10.1); Chloride 109 mmol/L (98-107); Creatinine, Serum 0.85 mg/dL (0.70-1.30); EST Glomerular Filtration Rate 93 mL/min (>60); Est Glom Filt Rate - Afr Amer 113 mL/min (>60); Estimated Creatinine Clearance 70.41 ml/min; Globulin 3.3 g/dL (2.2-4.2); Glucose 112 mg/dL (74-106); Magnesium 1.6 mg/dL (1.6-2.6); Phosphorus 3.2 mg/dL (2.5-4.9); Potassium 3.1 mmol/L (3.5-5.1); Protein, Total 5.6 g/dL (6.4-8.2); Sodium Level 141 mmol/L (136-145)
[2024-11-18 08:20] LABS: Absolute Lymphocyte Count 0.29 X10^3/uL (0.83-4.51); Basophil# 0.03 X10^3/uL; Basophil% 0.1 % (0-1); Eosinophil# 0.02 X10^3/uL; Eosinophils% 0.1 % (0-5); Hematocrit 34.9 % (40-54); Hemoglobin 11.8 g/dL (13.0-16.5); Lymphocyte # 0.29 X10^3/ul (0.83-4.51); Lymphocyte % 1.4 % (19-41); Mean Corp Hgb Conc 33.8 g/dL (32-36); Mean Corpuscular Volume 97.5 fL (80-94); Mean Platelet Vol. 9.5 fl (6.2-12.0); Monocyte# 0.99 X10^3/uL; Monocyte% 4.6 % (0-10); NRBC Flagged by Analyzer 0 % (0-5); Neutrophil # 19.95 X10^3/uL (2.7-7.7); Neutrophil % 92.9 % (47-70); POSITIVE DIFFERENTIAL YES; Platelet Count 169 K/mm3 (150-450); RBC Distribution Width CV 13.9 % (11.6-14.6); RBC Distribution Width SD 50.3 fl (35.1-43.9); Red Blood Count 3.58 M/mm3 (4.6-6.2); White Blood Count 21.5 K/mm3 (4.4-11.0)
[2024-11-18] MEDS: Potassium Chloride 10mEq/100mL 10 MEQ/100 ML IV.SOLN. 100 MEQ IV BOLUS ×4 (09:12→13:17)
[2024-11-18] MEDS: Pantoprazole Sodium 40 MG in 0.9% Normal Saline (100mL MB+) 100 ML 330 MG IV (09:12)
--- NOTE | 2024-11-18 09:34 | CON.PCM.SX_ITS ---
Assessment & Plan Assessment/Plan (1) Transaminitis: PLAN: The patient's liver enzymes are all elevated. He does have a biliary stent in place. When I reviewed his CT scan it appears that he has periportal edema throughout the liver. The patient also has significantly thickened gallbladder wall but the gallbladder does not appear distended only appears thickened. With the patient's fevers and right upper quadrant pain and jaundice I am concern for cholangitis. I discussed this with Dr. Myers and I would like his stents exchanged possibly. The patient also had atypical cells and he was sent for EUS but the patient reports that he has tried multiple times to contact that doctor's office and they will not call him back. The patient's gallbladder likely needs to be removed but I do not believe it is the main source of his problems currently. I believe that it is inflamed because the liver is inflamed and due to the periportal edema and inflammation the gallbladder wall is thickened as well. Continue antibiotics. Await input from Dr. Myers. Mike Malagon MD Pager: [facility] [address] [place] [address], [address] [place] [address] Office: HPI Consult Data Date of Consult: 11/18/24 HPI Narrative HPI Narrative: RUSSELL BETH, is a 79 M who presents with abdominal pain. The patient was recently seen by Dr. Myers and had a stent placed for bili obstruction about a month ago. The patient also had atypical cells noted on biopsy of his common duct. The patient reports right upper quadrant pain as well as fevers. [facility] Medical History Non-smoker Hypertension Right inguinal hernia Hypothyroid Nocturia Internal hemorrhoids GERD (gastroesophageal reflux disease) Erectile dysfunction Diverticulosis Home Medications ?Medication ?Instructions ?Recorded ?Last Taken ?Type levothyroxine 175 mcg tablet 125 mcg PO DAILY 11/23/17 10/24/24 History Allergy/AdvReac Type Severity Reaction Status Date / Time No Known Allergies Allergy Verified 11/17/24 20:54 Family History Mother Asthma Father Heart disease High cholesterol Surgical History S/P right inguinal hernia repair History of hydrocelectomy Hx of colonoscopy Social History Smoking Status: Never smoker second hand exposure: No alcohol intake: never substance use type: does not use caffeine: Yes what type of physical activity do you participate in: walking, aerobics and weight training frequency: daily ROS Constitutional Constitutional: Reports fever(s); Denies anorexia or chills Eyes Eyes: Denies blurry vision ENT HEENT: Denies abnormal hearing Cardiovascular Cardiovascular: Denies chest pain Respiratory/Chest Respiratory/Chest: Denies cough or dyspnea Gastrointestinal Gastrointestinal: Reports abdominal pain; Denies nausea or vomiting Genitourinary Genitourinary: Denies change in urinary stream Musculoskeletal Musculoskeletal: Denies abnormal gait Integumentary Integumentary: Reports jaundice Neurologic Neurologic: Denies abnormal gait Endocrine Endocrinology: Denies flushing Hematologic/Lymphatic Hematologic/Lymphatic: Denies easy bleeding Physical Exam Const alert and oriented x3 HEENT normocephalic Eyes PERRL Chest inspection of chest normal Resp normal respiratory effort Cardio Rate: regular rate Rhythm: regular rhythm GI soft to palpation Palpation: tender RLQ and RUQ Lab / Micro Data 11/18/24 07:45 11/18/24 07:45 Labs: Laboratory Results - last 24 hr 11/17/24 21:54: WBC 6.7, RBC 3.80 L, Hgb 12.7 L, Hct 36.9 L, MCV 97.1 H, MCH 33.4 H, MCHC 34.4, RDW Std Deviation 48.2 H, RDW Coeff of Meri 13.5, Plt Count 181, MPV 9.0, Neut % (Auto) Not Reportable, Lymph % (Auto) Not Reportable, [place] % (Auto) Not Reportable, Absolute Neuts (auto) 6.3, Absolute Lymphs (auto) 0.26 L, Total Counted 100, Neutrophils % (Manual) 85 H, Band Neutrophils % 9 H, L ymphocytes % (Manual) 4 L, Monocytes % (Manual) 2, Diff Path Review February, Platelet Estimate ADEQUATE, RBC Morphology NORM C+C, Sodium 135 L, Potassium 3.8, Chloride 100, Carbon Dioxide 27.0, Anion Gap 8, BUN 17, Creatinine 0.98, Estim Creat Clear Calc 66.62, Est GFR (MDRD) Af Amer 96, Est GFR (MDRD) Non-Af 79, BUN/Creatinine Ratio 17.4, Glucose 132 H, Calcium 8.8, Total Bilirubin 3.50 H, Direct Bilirubin 2.67 H, AST 161 H, ALT 109 H, Alkaline Phosphatase 488 H, Total Protein 7.1, Albumin 2.9 L, Globulin 4.2, Lipase 145 H 11/17/24 21:55: Lactic Acid 3.1 H* 11/17/24 23:58: Urine Color Yellow, Urine Clarity Clear, Urine pH 6.5, Ur Specific [place] 1.005, Urine Protein 15 H, Urine Glucose (UA) Normal, Urine Ketones Negative, Urine Occult Blood 10 H, Urine Nitrite Negative, Urine Bilirubin 1 H, Urine Urobilinogen 1 H, Ur Leukocyte Esterase 25 H, Urine RBC 0 SEEN, Urine WBC 0 SEEN, Ur Squamous Epith Cells 0 SEEN, Urine Bacteria 0 SEEN, Urine Mucus 0 SEEN 11/18/24 03:10: Lactic Acid 1.8 11/18/24 03:40: Ammonia Cancelled 11/18/24 05:25: Ammonia 28.0 11/18/24 07:45: WBC 21.5 H, RBC 3.58 L, Hgb 11.8 L, Hct 34.9 L, MCV 97.5 H, MCH 33.0 H, MCHC 33.8, RDW Std Deviation 50.3 H, RDW Coeff of Meri 13.9, Plt Count 169, MPV 9.5, Immature Gran % (Auto) 0.900, Neut % (Auto) 92.9 H, Lymph % (Auto) 1.4 L, [place] % (Auto) 4.6, Eos % (Auto) 0.1, Baso % (Auto) 0.1, Absolute Neuts (auto) 20.0 H, Absolute Lymphs (auto) 0.29 L, Nucleated RBC % 0, Sodium 141, P otassium 3.1 L, Chloride 109 H, Carbon Dioxide 24.0, Anion Gap 8, BUN 15, Creatinine 0.85, Estim Creat Clear Calc 70.41, Est GFR (MDRD) Af Amer 113, Est GFR (MDRD) Non-Af 93, BUN/Creatinine Ratio 17.7, Glucose 112 H, Calcium 8.1 L, Phosphorus 3.2, Magnesium 1.6, Total Bilirubin 4.80 H, AST 172 H, ALT 117 H, A lkaline Phosphatase 383 H, Total Protein 5.6 L, Albumin 2.3 L, Globulin 3.3, A lbumin/Globulin Ratio 0.7 L Micro: Microbiology 11/17/24 23:43 Blood Culture (Wb) - Right Forearm Blood Culture - Preliminary 11/17/24 23:37 Blood Culture (Wb) - Anticubital Left Blood Culture - Preliminary 11/17/24 21:55 Mucosa - Nasopharyngeal SARS-CoV-2, Influenza & RSV (PCR) - Final ABG Data ABG results: ABG 11/17/24 22:10 Specimen Type KAILEY Sample Site Not entered O2 % 3.0 VBG pH 7.45 H VBG pO2 54 H VBG HCO3 25 VBG Total CO2 26 VBG O2 Sat (Calc) 89 H VBG Base Excess 1 POC Mix VBG pCO2 Pt Tmp 35.3 L O2 Delivery Device Cannula Rhythm Strip Rhythm Strip: Sinus Tach Rate: 106 Ectopy: PVC(s) Imaging Radiology Impression Chest/Abdomen/Pelvis CT 11/17/24 23:17 IMPRESSION: 1. Extensive coronary artery atherosclerotic calcific disease. 2. Hypoventilatory changes, dependent lungs. 3. Internal biliary and pancreatic duct stents. 4. Periportal edema concerning for hepatitis/inflammation. 5. Pneumobilia. 6. Prominent hepatic duct. 7. Findings concerning for acute cholecystitis. 8. Atherosclerotic calcific disease of the aortoiliac arteries. 9. Atherosclerotic calcific disease of the visceral arteries. 10. Cystic changes involving the bilateral hips and osseous pelvis. 11. Other nonacute findings detailed above. Reading Location: [facility]
--- NOTE | 2024-11-18 16:20 | CON.PCM.GI_ITS ---
HPI Consult Data Date of Consult: 11/18/24 HPI Narrative Reason for Consultation: cholestatic hepatitis with jaundice HPI Narrative: RUSSELL BETH, is a 79 M who presents to the ER with right upper quadrant pain and jaundice with loose yellow sticky stools ~2 weeks complicated by biochemical workup that showed cholestatic pattern of obstruction with Hyperbilirubinemia of 6.5 mg/dL, with direct bilirubin of 5.11 mg/dL alkaline phosphatase of 1,010 U/L, AST of 193 U/L and ALT of 162 U/L with ultrasound showing CBD duct diameter of ~10 mm with gallbladder full of stones. He recently underwent ERCP with pancreatic and biliary sphincterotomies were performed along with sweeping of the biliary tree on October 24, 2024 who presents to [facility] ER once again complaining of abdominal pain. Patient then underwent CT scan of the abdomen pelvis which was positive for evidence of Acute Cholecystitis (with additional concern for ascending cholangitis) with periportal edema concerning for hepatitis/inflammation and pneumobilia with a prominent hepatic duct and internal biliary and pancreatic duct stents. Labs- lactic Acidosis of 3.1 mmol/L present on admission concerning for Sepsis awith Hyperbilirubinemia of 3.5 mg/dL, direct bilirubin of 2.67 mg/dL, AST of 161 U/L, ALT of 109 U/L and alkaline phosphatase of 488 units/L in addition to a mildly elevated serum Lipase 145 U/L suggestive of possible early pancreatitis and a normal ammonia level of 28 umol/L. [facility] Medical History Non-smoker Hypertension Right inguinal hernia Hypothyroid Nocturia Internal hemorrhoids GERD (gastroesophageal reflux disease) Erectile dysfunction Diverticulosis Home Medications ?Medication ?Instructions ?Recorded ?Last Taken ?Type levothyroxine 175 mcg tablet 125 mcg PO DAILY 11/23/17 10/24/24 History Allergy/AdvReac Type Severity Reaction Status Date / Time No Known Allergies Allergy Verified 11/17/24 20:54 Family History Mother Asthma Father Heart disease High cholesterol Surgical History S/P right inguinal hernia repair History of hydrocelectomy Hx of colonoscopy Social History Smoking Status: Never smoker second hand exposure: No alcohol intake: never substance use type: does not use caffeine: Yes what type of physical activity do you participate in: walking, aerobics and weight training frequency: daily ROS Constitutional Constitutional: Denies fatigue, fever(s), poor appetite, weight gain or weight loss Gastrointestinal Gastrointestinal: Denies belching, bloating, change in bowel habits, change in stool character, chewing difficulty, coffee ground emesis, constipation, cramping, diarrhea, dyspepsia, dysphagia, early satiety, excessive flatus, fecal incontinence, heartburn, hematemesis, hematochezia, hemorrhoids, loose stools, melena, nausea, odynophagia, rectal bleeding, tenesmus, vomiting or weight changes Physical Exam Const alert, oriented x3, no apparent distress and healthy appearing General Appearance: cooperative GI normal to inspection, nondistended, normoactive bowel sounds, soft to palpation, non-tender and non-distended Percussion: normal to percussion Rectal Exam: deferred Lab / Micro Data 11/19/24 05:00 11/19/24 05:00 Labs: Laboratory Results - last 24 hr 11/17/24 21:54: Diff Path Review Reviewed 11/19/24 05:00: WBC 21.0 H, RBC 3.52 L, Hgb 11.8 L, Hct 33.9 L, MCV 96.3 H, MCH 33.5 H, MCHC 34.8, RDW Std Deviation 49.7 H, RDW Coeff of Meri 14.1, Plt Count 161, MPV 9.8, Immature Gran % (Auto) 2.500 H, Neut % (Auto) 90.5 H, Lymph % (Auto) 2.2 L, [place] % (Auto) 4.4, Eos % (Auto) 0.2, Baso % (Auto) 0.2, Absolute Neuts (auto) 19.0 H, Absolute Lymphs (auto) 0.47 L, Nucleated RBC % 0, Sodium 140, Potassium 3.7, Chloride 109 H, Carbon Dioxide 24.0, Anion Gap 7, BUN 16, Creatinine 0.77, Estim Creat Clear Calc 74.81, Est GFR (MDRD) Af Amer 127, Est GFR (MDRD) Non-Af 105, BUN/Creatinine Ratio 20.9 H, Glucose 105, Calcium 8.2 L, Phosphorus 1.9 L, Magnesium 1.8, Total Bilirubin 4.80 H, AST 167 H, ALT 132 H, A lkaline Phosphatase 305 H, Total Protein 5.7 L, Albumin 2.2 L, Globulin 3.5, A lbumin/Globulin Ratio 0.6 L Micro: Microbiology 11/17/24 23:43 Blood Culture (Wb) - Right Forearm Blood Culture - Preliminary GNR lactose vocational trainer 11/17/24 23:37 Blood Culture (Wb) - Anticubital Left Blood Culture - Preliminary GNR lactose vocational trainer Rhythm Strip Rhythm Strip: Sinus Tach Rate: 106 Ectopy: PVC(s) Assessment & Plan Assessment/Plan (1) Sepsis: QUALIFIERS: Sepsis type: sepsis due to unspecified organism S epsis acute organ dysfunction status: with acute organ dysfunction Severe sepsis acute organ dysfunction type: encephalopathy Severe sepsis shock status: without septic shock Qualified Code(s): A41.9 - Sepsis, unspecified organism; R65.20 - Severe sepsis without septic shock; G93.41 - Metabolic encephalopathy (2) Lactic acidosis: (3) Acute cholecystitis with acute cholangitis: (4) Pneumobilia: (5) Hepatitis: (6) Hyperbilirubinemia: (7) Transaminitis: (8) History of biliary duct stent placement: (9) Respiratory insufficiency: (10) Acute metabolic encephalopathy: PLAN: Plan 79-year-old gentleman with history of cholelithiasis and choledocholithiasis presents with : CT evidence of Acute Cholecystitis with additional suspicion for Ascending Cholangitis with Pneumobilia with a prominent hepatic duct and internal biliary and pancreatic duct stents noted in addition to periportal edema concerning for Hepatitis/inflammation complicated by laboratory evidence of Lactic Acidosis of 3.1. Continue IV antibiotics. He will need to undergo ERCP with stent removal and cleaning of his bile ducts. He was explained alternatives, risk and benefits include not withstanding bleeding, infection, sepsis, perforation, need for emergent urgent . He will have an ASA of 3.
--- NOTE | 2024-11-18 17:04 | PN.HOSP_ITS ---
Hospitalist Note Mr. Mcgee is a 79-year-old white male who was initially seen by Dr. Myers in early October 2024 for painless jaundice. An ERCP was done at that time which showed a biliary stricture and choledocholithiasis. Stone was removed and stricture was stented open. Biopsies were taken and showed atypical cells and Dr. Myers was concerned that he could have a malignancy so he has been referred to [place] gastro[facility] for EUS. The patient has tried to schedule this but seems to be getting the run around from the doctor's office and this has not yet been scheduled. 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 He states he has had issues with urinary tract infections and developed abdominal pain so he came to the emergency department to be evaluated. On presentation he was confused and febrile and tachycardic. Per emergency department documentation he was not able to tell the physician why he was really in the emergency department or how long he had been feeling poorly. The emergency department physician had taken care of him previously and was familiar with him and indicated he was typically alert and oriented and very well put together. Vital signs on presentation showed a temperature of 98.9, heart rate 96, blood pressure 132/84, pulse ox was 97% on room air. CBC showed a normal white count, mild stable anemia but had a significant left shift with 85% neutrophilia and 9% bandemia. Venous blood gas was unremarkable. With a pH of 7.45. Chemistry panel was unremarkable. Lactic acidosis was 3.1. Bilirubin was elevated at 3.5, direct bilirubin was elevated at 2.67 and transaminases were elevated as well. Ammonia level was normal. Lipase was 145. UA is not consistent with infection. Given his toxic appearance and concern for sepsis in the emergency department, blood and urine cultures were obtained. CT of the chest abdomen pelvis was performed and showed extensive CAD with calcific diseas e, hypoventilatory changes in the dependent lungs, internal biliary and pancreatic duct stents, periportal edema consistent with hepatitis/inflammation, pneumobilia, prominent hepatic duct, findings concerning for acute cholecystitis and osteoarthritis of bilateral hips. Preliminary blood cultures resulted quickly positive for gram-negative rods. He is currently on vancomycin and Zosyn. I discussed the case with both with gastroenterology and general surgery. General surgery feels that this is predominantly stent obstruction and ascending cholangitis. He discussed the case with Dr. Friend and it sounds like the preliminary plan will be for ERCP tomorrow with follow-up on gallbladder afterwards. Dr. Malagon did not feel that this needed transferred or emergent PERC drainage of the gallbladder and feels that an ERCP needs to be done first. The patient is hemodynamically stable in the ICU however I am concerned following any procedure he could have a cytokine storm at which time he would require pressors so I will keep in the ICU until intervention can be performed.
--- NOTE | 2024-11-18 18:02 | CON.PCM.CC_ITS ---
HPI Consult Data Date of Consult: 11/18/24 HPI Narrative HPI Narrative: RUSSELL BETH, is a 79 M who presents [facility] Medical History Non-smoker Hypertension Right inguinal hernia Hypothyroid Nocturia Internal hemorrhoids GERD (gastroesophageal reflux disease) Erectile dysfunction Diverticulosis Home Medications ?Medication ?Instructions ?Recorded ?Last Taken ?Type levothyroxine 175 mcg tablet 125 mcg PO DAILY 11/23/17 10/24/24 History Allergy/AdvReac Type Severity Reaction Status Date / Time No Known Allergies Allergy Verified 11/17/24 20:54 Family History Mother Asthma Father Heart disease High cholesterol Surgical History S/P right inguinal hernia repair History of hydrocelectomy Hx of colonoscopy Social History Smoking Status: Never smoker second hand exposure: No alcohol intake: never substance use type: does not use caffeine: Yes what type of physical activity do you participate in: walking, aerobics and weight training frequency: daily Objective Data Objective Data Vital Signs: Vital Signs Last response 3 Temperature 36.6 C 11/18/24 17:00 Temperature Source Temporal 11/18/24 17:00 Pulse Rate 86 11/18/24 17:00 Pulse Strength Normal (2+) 11/18/24 08:12 Respiratory Rate 21 H 11/18/24 17:00 Respiratory Effort Normal, Non-Labored 11/18/24 07:50 Respiratory Depth Normal 11/18/24 07:50 Respiratory Pattern Normal 11/18/24 07:50 Blood Pressure 108/56 L 11/18/24 17:00 Blood Pressure Mean 73 11/18/24 17:00 Blood Pressure Source Monitor 11/18/24 17:00 Blood Pressure Position Semi-Fowlers 11/18/24 17:00 Blood Pressure Location Right Arm 11/18/24 17:00 Pulse Ox 95 11/18/24 17:00 Oxygen Delivery Method Room Air 11/18/24 17:00 Oxygen Flow Rate (L/min) 2 11/18/24 07:50 I&O: I&O Last 24 Hours 3 11/17/24 11/18/24 11/18/24 23:59 11:59 23:59 Intake Total 3592.92 / 4254.59 661.67 / 4254.59 Output Total 650 / 850 200 / 850 Balance 2942.92 / 3404.59 461.67 / 3404.59 I&O: Total Stay 3 11/17/24 20:53 thru 11/18/24 15:32 Intake Total 4254.59 Output Total 850 Balance 3404.59 Current Meds Ordered / Administered: Current meds ordered / Administered 3 Generic Name Dose Route Start Last Admin Trade Name Freq PRN Reason Stop Dose Admin Acetaminophen 650 mg 11/18/24 02:52 Acetaminophen 650 Mg Suppository RC Q6H PRN PRN Pain 1-5/10 or Fever Piperacillin Sod/Tazobactam 50 mls @ 12.5 mls/hr 11/18/24 06:00 11/18/24 14:23 Sod 3.375 gm/ Sodium Chloride IV 12.5 mls/hr Q8 STEVIE Administration Pantoprazole Sodium 40 mg/ 110 mls @ 330 mls/hr 11/18/24 10:00 11/18/24 09:35 Sodium Chloride IV Infused Q24 STEVIE Infusion Sodium Chloride 1,000 mls @ 100 mls/hr 11/18/24 02:52 11/18/24 13:17 IV 11/18/24 22:51 100 mls/hr .Q10H STEVIE Administration Protocol Levothyroxine Sodium 200 mcg 11/24/24 10:00 Levothyroxine Sodium 100 Mcg Vial IV Q3D STEVIE Morphine Sulfate 2 mg 11/18/24 02:52 Morphine 2 Mg/Ml Syringe IV Q4H PRN PRN Pain Score 6-10 Ondansetron HCl 4 mg 11/18/24 02:52 Ondansetron 4 Mg/2 Ml Vial IV Q6H PRN PRN NAUSEA/VOMITING Sodium Chloride 10 - 40 ml 11/18/24 02:51 0.9% Saline Lock 10 Ml Syringe IV UD PRN SALINE FLUSH Lab / Micro Data 11/18/24 07:45 11/18/24 07:45 Labs: Laboratory Results - last 24 hr 11/17/24 21:54: WBC 6.7, RBC 3.80 L, Hgb 12.7 L, Hct 36.9 L, MCV 97.1 H, MCH 33.4 H, MCHC 34.4, RDW Std Deviation 48.2 H, RDW Coeff of Meri 13.5, Plt Count 181, MPV 9.0, Neut % (Auto) Not Reportable, Lymph % (Auto) Not Reportable, [place] % (Auto) Not Reportable, Absolute Neuts (auto) 6.3, Absolute Lymphs (auto) 0.26 L, Total Counted 100, Neutrophils % (Manual) 85 H, Band Neutrophils % 9 H, L ymphocytes % (Manual) 4 L, Monocytes % (Manual) 2, Diff Path Review February, Platelet Estimate ADEQUATE, RBC Morphology NORM C+C, Sodium 135 L, Potassium 3.8, Chloride 100, Carbon Dioxide 27.0, Anion Gap 8, BUN 17, Creatinine 0.98, Estim Creat Clear Calc 66.62, Est GFR (MDRD) Af Amer 96, Est GFR (MDRD) Non-Af 79, BUN/Creatinine Ratio 17.4, Glucose 132 H, Calcium 8.8, Total Bilirubin 3.50 H, Direct Bilirubin 2.67 H, AST 161 H, ALT 109 H, Alkaline Phosphatase 488 H, Total Protein 7.1, Albumin 2.9 L, Globulin 4.2, Lipase 145 H 11/17/24 21:55: Lactic Acid 3.1 H* 11/17/24 23:58: Urine Color Yellow, Urine Clarity Clear, Urine pH 6.5, Ur Specific [place] 1.005, Urine Protein 15 H, Urine Glucose (UA) Normal, Urine Ketones Negative, Urine Occult Blood 10 H, Urine Nitrite Negative, Urine Bilirubin 1 H, Urine Urobilinogen 1 H, Ur Leukocyte Esterase 25 H, Urine RBC 0 SEEN, Urine WBC 0 SEEN, Ur Squamous Epith Cells 0 SEEN, Urine Bacteria 0 SEEN, Urine Mucus 0 SEEN 11/18/24 03:10: Lactic Acid 1.8 11/18/24 03:40: Ammonia Cancelled 11/18/24 05:25: Ammonia 28.0 11/18/24 07:45: WBC 21.5 H, RBC 3.58 L, Hgb 11.8 L, Hct 34.9 L, MCV 97.5 H, MCH 33.0 H, MCHC 33.8, RDW Std Deviation 50.3 H, RDW Coeff of Meri 13.9, Plt Count 169, MPV 9.5, Immature Gran % (Auto) 0.900, Neut % (Auto) 92.9 H, Lymph % (Auto) 1.4 L, [place] % (Auto) 4.6, Eos % (Auto) 0.1, Baso % (Auto) 0.1, Absolute Neuts (auto) 20.0 H, Absolute Lymphs (auto) 0.29 L, Nucleated RBC % 0, Sodium 141, P otassium 3.1 L, Chloride 109 H, Carbon Dioxide 24.0, Anion Gap 8, BUN 15, Creatinine 0.85, Estim Creat Clear Calc 70.41, Est GFR (MDRD) Af Amer 113, Est GFR (MDRD) Non-Af 93, BUN/Creatinine Ratio 17.7, Glucose 112 H, Calcium 8.1 L, Phosphorus 3.2, Magnesium 1.6, Total Bilirubin 4.80 H, AST 172 H, ALT 117 H, A lkaline Phosphatase 383 H, Total Protein 5.6 L, Albumin 2.3 L, Globulin 3.3, A lbumin/Globulin Ratio 0.7 L Micro: Microbiology 11/17/24 23:43 Blood Culture (Wb) - Right Forearm Blood Culture - Preliminary 11/17/24 23:37 Blood Culture (Wb) - Anticubital Left Blood Culture - Preliminary 11/17/24 21:55 Mucosa - Nasopharyngeal SARS-CoV-2, Influenza & RSV (PCR) - Final ABG Data ABG results: ABG 11/17/24 22:10 Specimen Type KAILEY Sample Site Not entered O2 % 3.0 VBG pH 7.45 H VBG pO2 54 H VBG HCO3 25 VBG Total CO2 26 VBG O2 Sat (Calc) 89 H VBG Base Excess 1 POC Mix VBG pCO2 Pt Tmp 35.3 L O2 Delivery Device Cannula Rhythm Strip Rhythm Strip: Sinus Tach Rate: 106 Ectopy: PVC(s) Imaging Radiology Impression Chest/Abdomen/Pelvis CT 11/17/24 23:17 IMPRESSION: 1. Extensive coronary artery atherosclerotic calcific disease. 2. Hypoventilatory changes, dependent lungs. 3. Internal biliary and pancreatic duct stents. 4. Periportal edema concerning for hepatitis/inflammation. 5. Pneumobilia. 6. Prominent hepatic duct. 7. Findings concerning for acute cholecystitis. 8. Atherosclerotic calcific disease of the aortoiliac arteries. 9. Atherosclerotic calcific disease of the visceral arteries. 10. Cystic changes involving the bilateral hips and osseous pelvis. 11. Other nonacute findings detailed above. Reading Location: [facility] Assessment and Plan . Assessment and plan: 79 yo man admitted 11/17/24 w/ N/V and abdominal pain. Significant fever in the ED. BP marginal initially. Recently admitted and underwent ERCP - CBD and pancreatic stents placed - (?) atypical cells seen on cytology He has received IVF and IV ABX. CT reveals GB wall thickening, alfonso-portal edema, stranding around GB Surgery opinion noted - GB removal deferred - tentative plan for repeat ERCP Tuesday He is in NAD - does not appear toxic HD stable currently. LA 1.8, WBC 22, LFT noted, BCX G/S --> GNR He feels significantly better EXAM NAD VS as above COR RRR CHEST CTA ABD soft EXT minimal edema ZONIA NF IMP 1. Sepsis syndrome 2. Cholangitis 3. s/p recent CBD stent - (?) underlying etiology of obstruction 4. GNR bacteremia REC -f/u CX - receiving ABX -fGI evaluation for repeat ERCP -volume expansion -shold A/C for now Critical Care Time: 60 min The entirety of this encounter was done via Telemedicine
[2024-11-19] VITALS (22 sets, daily range): BP systolic 101–145; BP diastolic 51–90; PULSE 73–93; RESP 15–22; TEMP 36.1–36.9; O2SAT 92–100; BMI 25.1
--- NOTE | 2024-11-19 | FLU_PTH ---
PATIENT: RUSSELL BETH LOC: ICU U#:[id number] AGE/SX: 79/M ROOM: [place] [address] RE11/18/[address]: Dr. Camilo Upton MD : 1945 BED: 1 DIS: 11/20/2024 SPEC #: [id number] RECD: 11/20/24 08:54 STATUS: SOUT REQ #: [id number] FATOU: 11/19/24 00:[address]: Quan Myers DEPT: CYTOLOGY RECD BY: Jamey Mcgowan ENTERED: 11/20/24 08:54 SP TYPE: Fluid OTHR DR: MD Dr. Zion Landers MD Dr. Adan Mora, MD Dr. Bruce Arthur, MD Dr. Cydney Godman, DO Dr. Camilo Archibald Dr., MD Dr. Camilo Aponte Dr., MD Dr. Edward Matheis, MD Dr. Gautam Baskaran, MD Dr. Yordanos Habtegebriel, MD Dr. Hemant Dand, MD Dr. Jordan Garrison, MD Dr. Ravi Montes Dr., MD Dr. Kimber Foust, MD Dr. Kathryn Lee, DO MD Dr. Johnna Faust MD Dr. Pritam Ghosh, MD Dr. Pavan Irukulla, MD Dr. Saad Farooqi, MD Dr. Sukhdeep Dhesi, MD Dr. Mickey Rosario Dr., MD Dr. Timothy Fernstrom, DO MD Dr. Jacky Melton MD Tissues: Biliary tract, NOS Procedures: Special Stain Group II Surgery Specimen Level IV Cytospin Fluid Comments: @ Ordering doctor for SSII edited from to @ by MISTY at 11/20/24911 @ Ordering doctor for SUIV edited from to @ by MISTY at 11/20/24911 @ Ordering doctor for CYSPIN edited from to @ by MISTY at 11/20/24911 @ Submitting doctor edited from to @ by MISTY at 11/20/24911 HEADER OPERATION: ERCP, stent exchange PRE-OP DIAGNOSIS: Sepsis, lactic acidosis, acute cholecystitis with acute cholangitis, pneumobilia, hepatitis, hyperbilirubinemia, transaminitis, history of biliary duct stent placement, respiratory insufficiency TISSUE SUBMITTED: Biliary and pancreatic stents for cytology DIAGNOSIS CYTOLOGY Biliary and pancreatic stents fluid for cytology (cytospin and cellblock): Negative for malignant cells. See comment. Mendoza 11/21/2024 COMMENT Clinical correlation and appropriate follow up are necessary. CYTOLOGY STUDY Slides are reviewed. CYTOLOGY GROSS Received is a 10cm blue stent and a 9cm green stent labeled with the patient's name and and designated per the requisition as Biliary and pancreatic stents. Submitted for cytology preparation including cell block. Mr 11/20/2024 TC:5 CPT: 23450,03108
[2024-11-19] MEDS: Piperacil/Tazobactam 3.375 GM in 0.9% Normal Saline (50mL MB+) 50 ML IV ×3 (05:04→21:01)
[2024-11-19] MEDS: 0.9% Saline Lock 10 ML Syringe IV (05:05)
[2024-11-19 05:15] LABS: Absolute Lymphocyte Count 0.47 X10^3/uL (0.83-4.51); Basophil# 0.05 X10^3/uL; Basophil% 0.2 % (0-1); Eosinophil# 0.05 X10^3/uL; Eosinophils% 0.2 % (0-5); Hematocrit 33.9 % (40-54); Hemoglobin 11.8 g/dL (13.0-16.5); Lymphocyte # 0.47 X10^3/ul (0.83-4.51); Lymphocyte % 2.2 % (19-41); Mean Corp Hgb Conc 34.8 g/dL (32-36); Mean Corpuscular Hgb 33.5 pg (27.0-32.0); Mean Corpuscular Volume 96.3 fL (80-94); Mean Platelet Vol. 9.8 fl (6.2-12.0); Monocyte# 0.93 X10^3/uL; Monocyte% 4.4 % (0-10); NRBC Flagged by Analyzer 0 % (0-5); Neutrophil # 18.97 X10^3/uL (2.7-7.7); Neutrophil % 90.5 % (47-70); POSITIVE DIFFERENTIAL YES; Platelet Count 161 K/mm3 (150-450); RBC Distribution Width CV 14.1 % (11.6-14.6); RBC Distribution Width SD 49.7 fl (35.1-43.9); Red Blood Count 3.52 M/mm3 (4.6-6.2)
[2024-11-19 05:33] LABS: ALB/GLOB Ratio 0.6 RATIO (0.9-2.4); AST(SGOT) 167 U/L (15-37); Alanine Aminotransfer ALT/SGPT 132 U/L (16-61); Albumin, Serum 2.2 g/dL (3.2-5.0); Alkaline Phosphatase 305 U/L (45-117); Anion Gap 7 (5-15); BUN 16 mg/dL (7-18); BUN/Creat Ratio 20.9 RATIO (10-20); Calcium,Total 8.2 mg/dL (8.5-10.1); Chloride 109 mmol/L (98-107); Creatinine, Serum 0.77 mg/dL (0.70-1.30); EST Glomerular Filtration Rate 105 mL/min (>60); Est Glom Filt Rate - Afr Amer 127 mL/min (>60); Estimated Creatinine Clearance 74.81 ml/min; Globulin 3.5 g/dL (2.2-4.2); Glucose 105 mg/dL (74-106); Magnesium 1.8 mg/dL (1.6-2.6); Phosphorus 1.9 mg/dL (2.5-4.9); Potassium 3.7 mmol/L (3.5-5.1); Protein, Total 5.7 g/dL (6.4-8.2); Sodium Level 140 mmol/L (136-145)
--- NOTE | 2024-11-19 07:25 | PN.SURG_ITS ---
Subjective Subjective Patient is having no abdominal pain Objective Data Objective Data Vital Signs: Vital Signs Temp Pulse Resp BP Pulse Ox O2 Del Method O2 Flow Rate 97.9 F 89 18 123/82 H 95 Room Air 2 11/19/24 05:00 11/19/24 07:00 11/19/24 07:00 11/19/24 07:00 11/19/24 07:00 11/19/24 07:00 11/18/24 07:50 Oxygen Flow Rate (L/min) 2 Oxygen Delivery Method Room Air Weight: 165 lb 12.602 oz Body Mass Index (BMI) 25.1 Intake & Output: Intake and Output for Last 24 Hours 11/17/24 11/18/24 11/19/24 23:59 23:59 23:59 Intake Total 5524.59 / 5524.59 50 / 50 Output Total 1150 / 1150 800 / 800 Balance 4374.59 / 4374.59 -750 / -750 Lab / Micro Data 11/19/24 05:00 11/19/24 05:00 Labs: Laboratory Results - last 24 hr 11/18/24 07:45: WBC 21.5 H, RBC 3.58 L, Hgb 11.8 L, Hct 34.9 L, MCV 97.5 H, MCH 33.0 H, MCHC 33.8, RDW Std Deviation 50.3 H, RDW Coeff of Meri 13.9, Plt Count 169, MPV 9.5, Immature Gran % (Auto) 0.900, Neut % (Auto) 92.9 H, Lymph % (Auto) 1.4 L, [place] % (Auto) 4.6, Eos % (Auto) 0.1, Baso % (Auto) 0.1, Absolute Neuts (auto) 20.0 H, Absolute Lymphs (auto) 0.29 L, Nucleated RBC % 0, Sodium 141, P otassium 3.1 L, Chloride 109 H, Carbon Dioxide 24.0, Anion Gap 8, BUN 15, Creatinine 0.85, Estim Creat Clear Calc 70.41, Est GFR (MDRD) Af Amer 113, Est GFR (MDRD) Non-Af 93, BUN/Creatinine Ratio 17.7, Glucose 112 H, Calcium 8.1 L, Phosphorus 3.2, Magnesium 1.6, Total Bilirubin 4.80 H, AST 172 H, ALT 117 H, A lkaline Phosphatase 383 H, Total Protein 5.6 L, Albumin 2.3 L, Globulin 3.3, A lbumin/Globulin Ratio 0.7 L 11/19/24 05:00: WBC 21.0 H, RBC 3.52 L, Hgb 11.8 L, Hct 33.9 L, MCV 96.3 H, MCH 33.5 H, MCHC 34.8, RDW Std Deviation 49.7 H, RDW Coeff of Meri 14.1, Plt Count 161, MPV 9.8, Immature Gran % (Auto) 2.500 H, Neut % (Auto) 90.5 H, Lymph % (Auto) 2.2 L, [place] % (Auto) 4.4, Eos % (Auto) 0.2, Baso % (Auto) 0.2, Absolute Neuts (auto) 19.0 H, Absolute Lymphs (auto) 0.47 L, Nucleated RBC % 0, Sodium 140, Potassium 3.7, Chloride 109 H, Carbon Dioxide 24.0, Anion Gap 7, BUN 16, Creatinine 0.77, Estim Creat Clear Calc 74.81, Est GFR (MDRD) Af Amer 127, Est GFR (MDRD) Non-Af 105, BUN/Creatinine Ratio 20.9 H, Glucose 105, Calcium 8.2 L, Phosphorus 1.9 L, Magnesium 1.8, Total Bilirubin 4.80 H, AST 167 H, ALT 132 H, A lkaline Phosphatase 305 H, Total Protein 5.7 L, Albumin 2.2 L, Globulin 3.5, A lbumin/Globulin Ratio 0.6 L Micro: Microbiology 11/17/24 23:43 Blood Culture (Wb) - Right Forearm Blood Culture - Preliminary 11/17/24 23:37 Blood Culture (Wb) - Anticubital Left Blood Culture - Preliminary 11/17/24 21:55 Mucosa - Nasopharyngeal SARS-CoV-2, Influenza & RSV (PCR) - Final Rhythm Strip Rhythm Strip: Sinus Tach Rate: 106 Ectopy: PVC(s) Physical Exam Const oriented x3 and no apparent distress Resp normal respiratory effort Cardio regular rate and regular rhythm GI normal to inspection, nondistended, normoactive bowel sounds Assessment & Plan Assessment/Plan (1) Hyperbilirubinemia: (2) Sepsis: QUALIFIERS: Sepsis type: sepsis due to unspecified organism S epsis acute organ dysfunction status: with acute organ dysfunction Severe sepsis acute organ dysfunction type: encephalopathy Severe sepsis shock status: without septic shock Qualified Code(s): A41.9 - Sepsis, unspecified organism; R65.20 - Severe sepsis without septic shock; G93.41 - Metabolic encephalopathy PLAN: Plan Patient is having no abdominal pain today. His white count remains at 21. He was afebrile overnight. I do not believe that he is having acute cholecystitis as he has no abdominal pain. I believe he may have cholangitis and he is having ERCP today with stent exchange. Patient still has not received his EUS to evaluate the atypical cells. Await ERCP to see if there is purulent material in the common duct. Mike Malagon MD Pager: [facility] [address] [place] [address], [address] [place] [address] Office:
--- NOTE | 2024-11-19 07:36 | PCM.PN.INT ---
Assessment & Plan Assessment/Plan (1) Sepsis: QUALIFIERS: Sepsis acute organ dysfunction status: with acute organ dysfunction Sepsis type: sepsis due to unspecified organism Severe sepsis acute organ dysfunction type: encephalopathy Severe sepsis shock status: without septic shock Qualified Code(s): A41.9 - Sepsis, unspecified organism; R65.20 - Severe sepsis without septic shock; G93.41 - Metabolic encephalopathy PLAN: Plan RECOMMENDATIONS: 1. Continue empiric antibiotics. 2. Awaiting gastroenterology evaluation for possible ERCP. 3. Patient to remain n.p.o. for possible intervention. IMPRESSIONS: 1. Gram-negative sepsis Clinical concern for cholangitis in the setting of biliary stent obstruction with gastroenterology and general surgery following. The patient did have evidence of lactic acidosis at presentation, but has remained otherwise clinically stable on room air. Gastroenterology consultation is currently pending. I do anticipate that the patient will likely require ERCP. Will await input from specialists. Continue empiric antimicrobial therapy as ordered, given positive blood cultures with gram-negative rods. 2. History of hypothyroidism Continue home medications as indicated. This note was generated with [employer]ap[employer] dictation software. It may contain incorrect words, spelling, and punctuation that were not noted in checking the note before signing. Subjective Subjective The patient was seen and examined at the bedside this morning. Events from the last 24 hours have been reviewed. The patient is currently afebrile, hemodynamically stable and maintaining appropriate oxygen saturations on room air. The patient is currently documented to be overall net +3.7 L for the hospitalization. White blood cell count is noted to be 21,000. Hemoglobin and platelet count are stable. Chemistry profile was notable for a total bilirubin of 4.8. The patient has no specific complaints this morning. Objective Data Objective Data The patient's most recent lab work, culture data and imaging studies have all been personally reviewed. 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 Vital Signs: Vital Signs Temp Pulse Resp BP Pulse Ox O2 Del Method O2 Flow Rate 97.9 F 89 18 123/82 H 95 Room Air 2 11/19/24 05:00 11/19/24 07:00 11/19/24 07:00 11/19/24 07:00 11/19/24 07:00 11/19/24 07:00 11/18/24 07:50 Oxygen Flow Rate (L/min) 2 Oxygen Delivery Method Room Air Weight: 165 lb 12.602 oz Body Mass Index (BMI) 25.1 Intake & Output: Intake and Output for Last 24 Hours 11/17/24 11/18/24 11/19/24 23:59 23:59 23:59 Intake Total 5524.59 / 5524.59 50 / 50 Output Total 1150 / 1150 800 / 800 Balance 4374.59 / 4374.59 -750 / -750 Lab / Micro Data Attestation: I reviewed the patient's lab results. 11/19/24 05:00 11/19/24 05:00 Labs: Laboratory Results - last 24 hr 11/18/24 07:45: WBC 21.5 H, RBC 3.58 L, Hgb 11.8 L, Hct 34.9 L, MCV 97.5 H, MCH 33.0 H, MCHC 33.8, RDW Std Deviation 50.3 H, RDW Coeff of Meri 13.9, Plt Count 169, MPV 9.5, Immature Gran % (Auto) 0.900, Neut % (Auto) 92.9 H, Lymph % (Auto) 1.4 L, Nolan % (Auto) 4.6, Eos % (Auto) 0.1, Baso % (Auto) 0.1, Absolute Neuts (auto) 20.0 H, Absolute Lymphs (auto) 0.29 L, Nucleated RBC % 0, Sodium 141, Potassium 3.1 L, Chloride 109 H, Carbon Dioxide 24.0, Anion Gap 8, BUN 15, Creatinine 0.85, Estim Creat Clear Calc 70.41, Est GFR (MDRD) Af Amer 113, Est GFR (MDRD) Non-Af 93, BUN/Creatinine Ratio 17.7, Glucose 112 H, Calcium 8.1 L, Phosphorus 3.2, Magnesium 1.6, Total Bilirubin 4.80 H, AST 172 H, ALT 117 H, Alkaline Phosphatase 383 H, Total Protein 5.6 L, Albumin 2.3 L, Globulin 3.3, Albumin/Globulin Ratio 0.7 L 11/19/24 05:00: WBC 21.0 H, RBC 3.52 L, Hgb 11.8 L, Hct 33.9 L, MCV 96.3 H, MCH 33.5 H, MCHC 34.8, RDW Std Deviation 49.7 H, RDW Coeff of Meri 14.1, Plt Count 161, MPV 9.8, Immature Gran % (Auto) 2.500 H, Neut % (Auto) 90.5 H, Lymph % (Auto) 2.2 L, Nolan % (Auto) 4.4, Eos % (Auto) 0.2, Baso % (Auto) 0.2, Absolute Neuts (auto) 19.0 H, Absolute Lymphs (auto) 0.47 L, Nucleated RBC % 0, Sodium 140, Potassium 3.7, Chloride 109 H, Carbon Dioxide 24.0, Anion Gap 7, BUN 16, Creatinine 0.77, Estim Creat Clear Calc 74.81, Est GFR (MDRD) Af Amer 127, Est GFR (MDRD) Non-Af 105, BUN/Creatinine Ratio 20.9 H, Glucose 105, Calcium 8.2 L, Phosphorus 1.9 L, Magnesium 1.8, Total Bilirubin 4.80 H, AST 167 H, ALT 132 H, Alkaline Phosphatase 305 H, Total Protein 5.7 L, Albumin 2.2 L, Globulin 3.5, Albumin/Globulin Ratio 0.6 L Micro: Microbiology 11/17/24 23:43 Blood Culture (Wb) - Right Forearm Blood Culture - Preliminary 11/17/24 23:37 Blood Culture (Wb) - Anticubital Left Blood Culture - Preliminary 11/17/24 21:55 Mucosa - Nasopharyngeal SARS-CoV-2, Influenza & RSV (PCR) - Final Rhythm Strip Rhythm Strip: Sinus Tach Rate: 106 Ectopy: PVC(s) Physical Exam Const alert, oriented x3 and no apparent distress General Appearance: cooperative HEENT normocephalic, head/scalp atraumatic and moist oral mucous membranes Eyes PERRL, EOMs intact bilaterally and conjunctivae normal Neck supple General: trachea midline Chest inspection of chest normal Resp normal respiratory effort Auscultation: Negative for rales, rhonchi or wheezes Cardio regular rate and regular rhythm GI normal to inspection, nondistended, normoactive bowel sounds Extremity no clubbing, cyanosis or edema Skin no rashes or lesions noted Neuro CN's II-XII intact bilaterally, moves all extremities and no focal motor deficits Psych cooperative and affect normal Charges/Coding Visit Charges Inpatient E&M: 46695 Subs Hosp L2
--- NOTE | 2024-11-19 07:41 | PN.HOSP_ITS ---
Reason for Visit Reason for Visit: Diagnoses Sepsis, unspecified organism (11/18/24) Other disorders of bilirubin metabolism (11/18/24) Acidosis, unspecified (11/18/24) Metabolic encephalopathy (11/18/24) Inflammatory liver disease, unspecified (11/18/24) Acute cholecystitis (11/18/24) Other cholangitis (11/18/24) Other specified diseases of biliary tract (11/18/24) Other abnormalities of breathing (11/18/24) Severe sepsis without septic shock (11/18/24) Elevation of levels of liver transaminase levels (11/18/24) Other specified postprocedural states (11/18/24) Subjective Subjective Patient is a 79-year-old gentleman with history of biliary stent placement early October for painless jaundice who presented back to the emergency department with abdominal pain. Patient was found to have slightly elevated transaminases. CT demonstrated evidence suspicious for ascending cholangitis with pneumobilia. Admitted to the intensive care unit consultation placed to general surgery as well as GI Objective Data Objective Data Vital Signs: Vital Signs Temp Pulse Resp BP Pulse Ox O2 Del Method O2 Flow Rate 97.9 F 89 18 123/82 H 95 Room Air 2 11/19/24 05:00 11/19/24 07:00 11/19/24 07:00 11/19/24 07:00 11/19/24 07:00 11/19/24 07:00 11/18/24 07:50 Oxygen Flow Rate (L/min) 2 Oxygen Delivery Method Room Air Weight: 75.2 kg Body Mass Index (BMI) 25.1 Intake & Output: Intake and Output for Last 24 Hours 11/17/24 11/18/24 11/19/24 23:59 23:59 23:59 Intake Total 5524.59 / 5524.59 50 / 50 Output Total 1150 / 1150 800 / 800 Balance 4374.59 / 4374.59 -750 / -750 Lab / Micro Data 11/19/24 05:00 11/19/24 05:00 Labs: Laboratory Results - last 24 hr 11/18/24 07:45: WBC 21.5 H, RBC 3.58 L, Hgb 11.8 L, Hct 34.9 L, MCV 97.5 H, MCH 33.0 H, MCHC 33.8, RDW Std Deviation 50.3 H, RDW Coeff of Meri 13.9, Plt Count 169, MPV 9.5, Immature Gran % (Auto) 0.900, Neut % (Auto) 92.9 H, Lymph % (Auto) 1.4 L, [place] % (Auto) 4.6, Eos % (Auto) 0.1, Baso % (Auto) 0.1, Absolute Neuts (auto) 20.0 H, Absolute Lymphs (auto) 0.29 L, Nucleated RBC % 0, Sodium 141, P otassium 3.1 L, Chloride 109 H, Carbon Dioxide 24.0, Anion Gap 8, BUN 15, Creatinine 0.85, Estim Creat Clear Calc 70.41, Est GFR (MDRD) Af Amer 113, Est GFR (MDRD) Non-Af 93, BUN/Creatinine Ratio 17.7, Glucose 112 H, Calcium 8.1 L, Phosphorus 3.2, Magnesium 1.6, Total Bilirubin 4.80 H, AST 172 H, ALT 117 H, A lkaline Phosphatase 383 H, Total Protein 5.6 L, Albumin 2.3 L, Globulin 3.3, A lbumin/Globulin Ratio 0.7 L 11/19/24 05:00: WBC 21.0 H, RBC 3.52 L, Hgb 11.8 L, Hct 33.9 L, MCV 96.3 H, MCH 33.5 H, MCHC 34.8, RDW Std Deviation 49.7 H, RDW Coeff of Meri 14.1, Plt Count 161, MPV 9.8, Immature Gran % (Auto) 2.500 H, Neut % (Auto) 90.5 H, Lymph % (Auto) 2.2 L, [place] % (Auto) 4.4, Eos % (Auto) 0.2, Baso % (Auto) 0.2, Absolute Neuts (auto) 19.0 H, Absolute Lymphs (auto) 0.47 L, Nucleated RBC % 0, Sodium 140, Potassium 3.7, Chloride 109 H, Carbon Dioxide 24.0, Anion Gap 7, BUN 16, Creatinine 0.77, Estim Creat Clear Calc 74.81, Est GFR (MDRD) Af Amer 127, Est GFR (MDRD) Non-Af 105, BUN/Creatinine Ratio 20.9 H, Glucose 105, Calcium 8.2 L, Phosphorus 1.9 L, Magnesium 1.8, Total Bilirubin 4.80 H, AST 167 H, ALT 132 H, A lkaline Phosphatase 305 H, Total Protein 5.7 L, Albumin 2.2 L, Globulin 3.5, A lbumin/Globulin Ratio 0.6 L Micro: Microbiology 11/17/24 23:43 Blood Culture (Wb) - Right Forearm Blood Culture - Preliminary 11/17/24 23:37 Blood Culture (Wb) - Anticubital Left Blood Culture - Preliminary 11/17/24 21:55 Mucosa - Nasopharyngeal SARS-CoV-2, Influenza & RSV (PCR) - Final Rhythm Strip Rhythm Strip: Sinus Tach Rate: 106 Ectopy: PVC(s) Physical Exam Narrative GENERAL: cooperative HEENT: Atraumatic; normocephalic EYES; Anicteric, Normal Conjunctiva NECK; supple, normal thyroid, RESPIRATORY: Diminished to auscultation CARDIOVASCULAR: Regular S1 S2, GI: soft, normoactive bowel sounds, : No Renal angle tenderness; EXTREMITIES: No edema, no clubbing, MUSCULOSKELETAL: no muscle wasting NEURO: Awake; no lateralizing signs. SKIN: No Rash PSYCH; Flat affect Assessment & Plan Assessment/Plan (1) Acute cholecystitis with acute cholangitis: (2) Hepatitis: (3) Acute metabolic encephalopathy: PLAN: Plan Patient is a 79-year-old gentleman with history of biliary stent placement early October for painless jaundice who presented back to the emergency department with abdominal pain. Patient was found to have slightly elevated transaminases. CT demonstrated evidence suspicious for ascending cholangitis with pneumobilia. Admitted to the intensive care unit consultation placed to general surgery as well as GI 1. Abdominal pain ? Secondary to suspected acute ascending cholangitis. CT of the abdomen and pelvis obtained on admission demonstrated pneumobilia as well as findings concerning for acute cholecystitis. Patient was admitted to the intensive care unit. Patient was started on broad-spectrum antibiotic therapy with piperacillin tazobactam. Consult placed to both GI as well as general surgery. With a rapid improvement in patient pain surgery did not think patient had acute cholecystitis. Plan is for patient to undergo ERCP and 2. Choledolithiasis Status post biliary sphincterotomy and balloon extraction. A pancreatic sphincterotomy was performed. One temporary stent was placed into the ventral pancreatic duct by Dr. Myers on 10/25/2024 3. Acute metabolic encephalopathy ? Secondary to suspected acute cholangitis management as discussed above 4. Hypothyroidism ? Patient is on levothyroxine home dose continued 5. DVT prophylaxis ? SCDs for now Time spent in the patient's overall evaluation,decision-making process, review of diagnostic data, adjustment of management, discussion with other providers, nursing nursing and ancillary staff involved in patient's care documentation,38 Minutes Charges/Coding Visit Charges Inpatient E&M: 71357 Subs Hosp L2
[2024-11-19] MEDS: Pantoprazole Sodium 40 MG in 0.9% Normal Saline (100mL MB+) 100 ML 330 MG IV (09:30)
--- NOTE | 2024-11-19 10:08 | CASEMGMT ---
Insurance review for hospitals In-network with?[employer] MCR insurance if transfer is recommended is as follows: [facility], [facility], [facility], [facility], [facility], [facility], , [facility], [facility], and [facility]. Sharmaine Sweeney, Discharge Planning Asst.
--- NOTE | 2024-11-19 10:38 | CASEMGMT ---
HIMANSHU HOOPER Assessment Face to Face with patient for initial transition planning/care coordination assessment. HIMANSHU HOOPER introduced self and role at [facility], pt voices understanding. Pt is A&Ox4 and is resting comfortably in bed and is calm. Care providers, pharmacy, and demographics verified. Admitting dx: Acute Cholecystitis LACE Strata: 2 PCP: Efrain Peters Specialists: Denies. Dr. Malagon and Dr. Myers are currently consulted Preferred Pharmacy: [facility] Insurance: [employer] MCR Prescription Benefit: Yes LNOK: Vicenta (W) Living Arrangements: Pt lives with his in a two story home with 1 step to enter. 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 Transportation: Self, . Pt states that his has cancer and that he is her primary CG. Pt states that the pt is able to drive shorter distances. Pt denies transportation concerns DME: Cane, BP Machine HHC/SNF: Denies Hx or needs Pt?s goal: Resolve gallbladder issue Plan: TBD. Anticipate Home no needs vs Transfer to tertiary facility. 6-Click is 23. Tert list placed by MARY ANN Schmid engineering inspection assistant. Per ICU Rounds, if the pt needs his Gallbladder removed, the pt will require transfer to a tertiary facility. If pt were to DC from [facility], pt denies needs moving forward including HH, CCN, or OP Tx. Pt states that he feels safe returning home with his once he is medically ready and denies further current concerns. CM to follow. Chris Perez RN, CM
[2024-11-19 14:06] LABS: Pathologist Review Reviewed
--- NOTE | 2024-11-19 16:16 | PRE.ANES_ITS ---
ASA Classification* ASA Classification ASA Classification: 3 Assessment & Plan Anesthesia* Anesthesia Assessment Anesthesia Assessment: Discussed sedation and/or anesthesia options, risks, benefits, and alternatives with patient/parents/legal guardian/POA. Questions invited. The patient/parents/legal guardian/POA seems to understand and agrees to proceed with anesthesia plan. Reviewed the physical assessment, medical history, allergy history and patient home medications list prior to surgery/procedure/anesthetic and documented any changes. Performed airway and anesthesia risk assessments. Anesthesia Type Anesthesia Type: General (elevated white count) Anesthesia Focused Assessment* Temperature: 98.2 F Pulse Rate: 92 Blood Pressure: 128/76 Respiratory Rate: 22 Pulse Ox: 94 Oxygen Flow Rate (L/min): 2 Airway Assessment Mouth opens: >3 cm Mallampati Score: II Focused Labs Anesthesia Preop lab: CBC WBC 21.0 K/mm3 (4.4-11.0) H 11/19/24 05:00 5 RBC 3.52 M/mm3 (4.6-6.2) L 11/19/24 05:00 11/19/24 Hgb 11.8 g/dL (13.0-16.5) L 11/19/24 05:00 5 Hct 33.9 % (40-54) L 11/19/24 05:00 11/19/24 Plt Count 161 K/mm3 (150-450) 11/19/24 05:00 11/19/24 CHEMISTRY Potassium 3.7 mmol/L (3.5-5.1) 11/19/24 05:00 11/19/24 Sodium 140 mmol/L (136-145) 11/19/24 05:00 11/19/24 Magnesium 1.8 mg/dL (1.6-2.6) 11/19/24 05:00 11/19/24 Phosphorus 1.9 mg/dL (2.5-4.9) L 11/19/24 05:00 11/19/24 BUN 16 mg/dL (7-18) 11/19/24 05:00 11/19/24 Creatinine 0.77 mg/dL (0.70-1.30) 11/19/24 05:00 11/19/24 Glucose 105 mg/dL (74-106) 11/19/24 05:00 11/19/24 TSH 0.50 uIU/mL (0.358-3.74) 10/16/19 10:25 COAG PT 14.6 SECONDS (11.7-14.9) 10/24/24 14:40 Pre-Assessment Diagnosis/Proposed Procedure Planned Operative Procedure(s): ERCP, Stent change Anesthesia History Anesthesia History - pediatric dietician: Anesthesia History - pediatric dietician Hx Hospitalization Yes 10/25/24 09:30 Any Problems With Anesthesia No 10/25/24 09:30 Cholinesterase deficiency No 10/25/24 09:30 You/Your Family Experience No 10/25/24 09:30 fever (hyperthermia) with Relationship Recent Exposure to Contagious No 10/25/24 09:30 Disease Does patient have nerve No 10/25/24 09:30 stimulator Patient instructed to have device shut off --Does patient have Pacemaker or ICD? When Was Last Pacemaker Check QUESTION #4 FULL TEXT: You/Your Family Experience fever (hyperthermia) with Anesthesia Last Oral Intake Last Oral intake: Last Oral Intake NPO since Meds taken in AM with sips of water? Meds patient instructed to take am of surgery PONV PONV - pediatric dietician: PONV - pediatric dietician Female HX of Motion Sickness HX of N/V After Surgery Non-Smoker Duration of Surgery greater than 60 minutes Number of Risk Factors PONV Score Height & Weight Height & Weight: Anesthesia: Height & Weight Height 5 ft 8 in 11/19/24 09:42 Weight: 75.2 kg 11/19/24 09:42 Body Mass Index (BMI) 25.1 11/19/24 05:55 Respiratory Assessment Respiratory Assessment - pediatric dietician: Respiratory Tract Infection Hx - pediatric dietician Hx Respiratory Tract Infection No 10/25/24 09:30 STOP Sleep Apnea STOP Sleep Apnea - pediatric dietician: STOP Sleep Apnea - pediatric dietician Hx Hypertension Yes 11/18/24 02:45 Hx Sleep Apnea No 11/18/24 02:45 CPAP BIPAP Do you snore loudly (louder No 11/18/24 02:45 than talking or can be heard Do you often feel tired/ No 11/18/24 02:45 fatigued/ sleepy during daytime? Has anyone observed you stop No 11/18/24 02:45 breathing during sleep? STOP Results Negative 11/18/24 02:45 QUESTION #5 FULL TEXT : Do you snore loudly (louder than talking or can be heard through closed doors)? 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 Specify any problems Hx of Preganancy in last 3 N/A 11/18/24 02:45 Months Nurse Filling Out Transfusion JLAMP 11/18/24 02:45 & Questions: Date: 11/18/24 11/18/24 02:45 Time: 02:47 11/18/24 02:45 Patient unable to answer at this time (ie. confused, unrespo /Reproduction History /Reproductive History - pediatric dietician: /Reproductive Hx- pediatric dietician Hx Now Gestational Age (in weeks): EDC: Hx Hx Para Hx Section SAB Active Medications Active Medications: Current Medications Generic Name Dose Route Start Last Admin Trade Name Freq PRN Reason Stop Dose Admin Acetaminophen 650 mg 11/18/24 02:52 Acetaminophen 650 Mg Suppository RC Q6H PRN PRN Pain 1-5/10 or Fever Piperacillin Sod/Tazobactam 50 mls @ 12.5 mls/hr 11/18/24 06:00 11/19/24 13:28 Sod 3.375 gm/ Sodium Chloride IV 12.5 mls/hr Q8 STEVIE Administration Pantoprazole Sodium 40 mg/ 110 mls @ 330 mls/hr 11/18/24 10:00 11/19/24 10:03 Sodium Chloride IV Infused Q24 STEVIE Infusion Levothyroxine Sodium 200 mcg 11/24/24 10:00 Levothyroxine Sodium 100 Mcg Vial IV Q3D STEVIE Morphine Sulfate 2 mg 11/18/24 02:52 Morphine 2 Mg/Ml Syringe IV Q4H PRN PRN Pain Score 6-10 Ondansetron HCl 4 mg 11/18/24 02:52 Ondansetron 4 Mg/2 Ml Vial IV Q6H PRN PRN NAUSEA/VOMITING Sodium Chloride 10 - 40 ml 11/18/24 02:51 11/19/24 05:05 0.9% Saline Lock 10 Ml Syringe IV 10 ml UD PRN Administration SALINE FLUSH PFS Medical History Non-smoker Hypertension Right inguinal hernia Hypothyroid Nocturia Internal hemorrhoids GERD (gastroesophageal reflux disease) Erectile dysfunction Diverticulosis Home Medications ?Medication ?Instructions ?Recorded ?Last Taken ?Type levothyroxine 175 mcg tablet 125 mcg PO DAILY 11/23/17 10/24/24 History Allergy/AdvReac Type Severity Reaction Status Date / Time No Known Allergies Allergy Verified 11/17/24 20:54 Family History Mother Asthma Father Heart disease High cholesterol Surgical History S/P right inguinal hernia repair History of hydrocelectomy Hx of colonoscopy Social History Smoking Status: Never smoker second hand exposure: No alcohol intake: never substance use type: does not use caffeine: Yes what type of physical activity do you participate in: walking, aerobics and weight training frequency: daily Review of Systems (Anesthesia) ROS Narrative System reviewed and no additional complaints, except as documented.
--- NOTE | 2024-11-19 16:25 | PCM.PN.BLA ---
Progress Note Patient feels a little bit better today. He still has some right upper quadrant pain. He has been on IV antibiotics and been NPO. Physical Exam Const alert, oriented x3, no apparent distress and healthy appearing General Appearance: cooperative GI normal to inspection, nondistended, normoactive bowel sounds, soft to palpation, non-tender and non-distended Percussion: normal to percussion Rectal Exam: deferred Assessment & Plan Assessment/Plan (1) Sepsis: QUALIFIERS: Sepsis type: sepsis due to unspecified organism Sepsis acute organ dysfunction status: with acute organ dysfunction Severe sepsis acute organ dysfunction type: encephalopathy Severe sepsis shock status: without septic shock Qualified Code(s): A41.9 - Sepsis, unspecified organism; R65.20 - Severe sepsis without septic shock; G93.41 - Metabolic encephalopathy (2) Lactic acidosis: (3) Acute cholecystitis with acute cholangitis: (4) Pneumobilia: (5) Hepatitis: (6) Hyperbilirubinemia: (7) Transaminitis: (8) History of biliary duct stent placement: (9) Respiratory insufficiency: (10) Acute metabolic encephalopathy: PLAN: Plan 79-year-old gentleman with history of cholelithiasis and choledocholithiasis presents with : CT evidence of Acute Cholecystitis with additional suspicion for Ascending Cholangitis with Pneumobilia with a prominent hepatic duct and internal biliary and pancreatic duct stents noted in addition to periportal edema concerning for Hepatitis/inflammation complicated by laboratory evidence of Lactic Acidosis of 3.1. Continue IV antibiotics. He will need to undergo ERCP with stent removal and cleaning of his bile ducts. He was explained alternatives, risk and benefits include not withstanding bleeding, infection, sepsis, perforation, need for emergent urgent . He will have an ASA of 3. All questions and concerns answered. Visit Charges Inpatient E&M: 69896 Subs Hosp L3
[2024-11-19] MEDS: 0.9% Normal Saline (1000mL) 1,000 ML 15 ML IV (16:26)
--- NOTE | 2024-11-19 16:38 | RAD_ITS ---
PROCEDURE: ERCP BILIARY/PANCREAS REASON FOR EXAM: ERCP with stent placement. TECHNIQUE: Nine (9) views, right upper quadrant. COMPARISON: CT chest abdomen and pelvis dated 11/17/2024. FINDINGS: Images were documented under fluoroscopy during the performance of endoscopic retrograde cholangiopancreatography. An endoscope is superimposed on the central abdomen. Several images document contrast opacifying the intrahepatic and extrahepatic bile ducts. Partial opacification of the distal cystic duct. No intraluminal filling defects are noted concerning for choledocholithiasis. A few small defects in the right intrahepatic ducts may represent small air bubbles. No suspicious constricting or obstructing lesions are identified. Final images document placement of a semiopaque mesh wall stent. The wall stent appears to lie in good position. RAD/ERCP Biliary/Pancreas IMPRESSION: 1. Documented findings related to ERCP procedure. For further details of the procedure please see postoperative report. Fluoroscopic time: 88.3 sec Dose: 37.26 mGy Reading Location: [facility]
--- NOTE | 2024-11-19 17:37 | OP.CCLET_ITS ---
11/19/2024 Efrain Peters [address] [place] [address] Re : ERCP procedure for Jhonatan Vaughn Dear Dr. Peters This procedure was performed on Tuesday, November 19, 2024. My impressions and recommendations are as follows: Impressions : - A biliary tract obstruction was found in the lower third of the main duct. - The upper third of the main bile duct, left main hepatic duct, right main hepatic duct, left and right hepatic ducts and all intrahepatic branches and common hepatic duct were dilated, secondary to a stricture. - An irregularity was found in the ventral pancreatic duct in the head of the pancreas. - Choledocholithiasis with a partial obstruction was found. Complete removal was accomplished by biliary sphincterotomy and balloon extraction. - A pancreatic sphincterotomy was performed. - The ventral pancreatic duct was swept and debris was found. - One stent was removed from the pancreatic duct. - A biliary sphincterotomy was performed. - The biliary tree was swept. - One stent was removed from the biliary tree. - One covered metal stent was placed into the common bile duct. Recommendations : My findings are described in the full procedure note, which is enclosed. If I can be of further assistance, please feel free to contact me at . Sincerely, Quan Myers, 11/19/2024 5:36:33 PM This report has been signed electronically.
--- NOTE | 2024-11-19 17:37 | OP.ERCP_ITS ---
Patient Name: Jhonatan Vaughn Procedure Date: 11/19/2024 4:23 PM Date of : 1945 Age: 79 Procedure: ERCP Indications: Abdominal pain of suspected biliary origin, Abdominal pain of suspected biliary or pancreatic origin, Evaluation and possible treatment of bile duct stone(s), Suspected ascending cholangitis, Jaundice, Acute pancreatitis Providers: Quan Myers DO Referring MD: Molly Lizarraga Do Medicines: Monitored Anesthesia Care Patient Profile: This is a 79 year old male. Refer to note in patient chart for documentation of history and physical. Patient has symptoms. Complications: No immediate complications. Procedure: Pre-Anesthesia Assessment: - Prior to the procedure, a History and Physical was performed, and patient medications and allergies were reviewed. The patient is competent. The risks and benefits of the procedure and the sedation options and risks were discussed with the patient. All questions were answered and informed consent was obtained. Patient identification and proposed procedure were verified by the physician in the pre-procedure area. Mental Status Examination: alert and oriented. Airway Examination: normal oropharyngeal airway and neck mobility. Respiratory Examination: clear to auscultation. CV Examination: normal. Prophylactic Antibiotics: The patient does not require prophylactic antibiotics. Prior Anticoagulants: The patient has taken no anticoagulant or antiplatelet agents except for NSAID medication. ASA Grade Assessment: II - A patient with mild systemic disease. After reviewing the risks and benefits, the patient was deemed in satisfactory condition to undergo the procedure. The anesthesia plan was to use general anesthesia. Immediately prior to administration of medications, the patient was re-assessed for adequacy to receive sedatives. The heart rate, respiratory rate, oxygen saturations, blood pressure, adequacy of pulmonary ventilation, and response to care were monitored throughout the procedure. The physical status of the patient was re-assessed after the procedure. After obtaining informed consent, the scope was passed under direct vision. Throughout the procedure, the patient's blood pressure, pulse, and oxygen saturations were monitored continuously. The Duodenoscope was introduced through the mouth, and advanced to the duodenum and used to inject contrast into the bile duct and ventral pancreatic duct. The ERCP was accomplished without difficulty. The patient tolerated the procedure well. Scope In: 4:53:17 PM Scope Out: 5:10:36 PM Total Procedure Duration Time 0 hours 17 minutes 19 seconds Findings: The planning analyst film was normal. The esophagus was successfully intubated under direct vision. The scope was advanced to a normal major papilla in the descending duodenum without detailed examination of the pharynx, larynx and associated structures, and upper GI tract. The upper GI tract was grossly normal. The ventral pancreatic duct was deeply cannulated with the short-nosed traction sphincterotome. Contrast was injected. I personally interpreted the pancreatic duct images. There was brisk flow of contrast through the ducts. Image quality was poor. Contrast extended to the pancreatic duct. Opacification of the ventral pancreatic duct in the head of the pancreas was successful. The maximum diameter of the ducts was 3 mm. Localized irregularity of the pancreatic duct was seen in the ventral pancreatic duct in the head of the pancreas. A long 0.025 inch Jagwire was passed into the ventral pancreatic duct. A 5 mm ventral pancreatic sphincterotomy was made with a traction (standard) sphincterotome using ERBE electrocautery. There was no post-sphincterotomy bleeding. To find object(s) the ventral pancreatic duct was swept with a 6 mm balloon starting at the pancreatic duct in the body of the pancreas. Debris was swept from the duct. One stent was removed from the pancreatic duct using a snare and sent for cytology. The stent was found to be partially occluded via the water column test. A long 0.025 inch Jagwire was passed into the biliary tree. The short-nosed traction sphincterotome was passed over the guidewire and the bile duct was then deeply cannulated. Contrast was injected. The lower third of the main bile duct was partially obstructed by a narrowing that did not appear to be a stone or a mass. The upper third of the main bile duct, common hepatic duct, hepatic duct bifurcation, left main hepatic duct, right main hepatic duct and left and right hepatic ducts and all intrahepatic branches were diffusely dilated, secondary to a stricture. The largest diameter was 13 mm. A 5 mm biliary sphincterotomy was made with a traction (standard) sphincterotome using ERBE electrocautery. There was no post-sphincterotomy bleeding. The biliary tree was swept with a 12 mm balloon starting at the upper third of the main bile duct, middle third of the main bile duct, lower third of the main duct, bifurcation, right intrahepatic duct(s) and right main hepatic duct. Sludge was swept from the duct. All stones were removed. One stent was removed from the biliary tree using a snare and sent for cytology. One 10 mm by 6 cm covered metal stent was placed 5 cm into the common bile duct. Pus flowed through the stent. The stent was in good position. Impression: - A biliary tract obstruction was found in the lower third of the main duct. - The upper third of the main bile duct, left main hepatic duct, right main hepatic duct, left and right hepatic ducts and all intrahepatic branches and common hepatic duct were dilated, secondary to a stricture. - An irregularity was found in the ventral pancreatic duct in the head of the pancreas. - Choledocholithiasis with a partial obstruction was found. Complete removal was accomplished by biliary sphincterotomy and balloon extraction. - A pancreatic sphincterotomy was performed. - The ventral pancreatic duct was swept and debris was found. - One stent was removed from the pancreatic duct. - A biliary sphincterotomy was performed. - The biliary tree was swept. - One stent was removed from the biliary tree. - One covered metal stent was placed into the common bile duct. Procedure Code(s): --- Professional --- 96863, Endoscopic retrograde cholangiopancreatography (ERCP); with removal and exchange of stent(s), biliary or pancreatic duct, including pre- and post-dilation and guide wire passage, when performed, including sphincterotomy, when performed, each stent exchanged 36996, 51, Endoscopic retrograde cholangiopancreatography (ERCP); with removal of calculi/debris from biliary/pancreatic duct(s) 75593, 59, Endoscopic retrograde cholangiopancreatography (ERCP); with sphincterotomy/papillotomy 74623, 26, Endoscopic catheterization of the pancreatic ductal system, radiological supervision and interpretation CPT copyright 2021 [employer]. All rights reserved. The codes documented in this report are preliminary and upon cotton presser review may be revised to meet current compliance requirements. Quan Myers DO 11/19/2024 5:36:33 PM This report has been signed electronically. Number of Addenda: 0 Note Initiated On: 11/19/2024 4:23 PM
--- NOTE | 2024-11-19 18:30 | PCM.POST.ANE ---
Anesthesia: Postop Eval I Current Vital Signs Temperature: 97 F Pulse Rate: 82 Blood Pressure: 135/60 Respiratory Rate: 16 Pulse Ox: 97 Assessment Airway patent: Yes Spontaneous unlabored respirations: Yes Mental status: Awake and Calm nausea: No Vomiting: No Anesthesia Complication: No Fluid Hydration Crystalloid volume administer (ml): 50 Total IV fluid infused: 50 Progress Note Anesthesia document: Postop Eval 1 completed: Yes
--- NOTE | 2024-11-19 18:31 | PCM.POSTANE2 ---
Anesthesia Postop Eval I Sum Postop Eval Completion status Anesthesia document: Postop Eval 1 completed: Yes Anesthesia Postop Eval I Summary Anesthesia Postop Eval I Summary: Anesthesia Postop Eval I: Assessment Summary Airway patent Yes 11/19/24 18:31 Spontaneous unlabored Yes 11/19/24 18:31 respirations Mental status Awake,Calm 11/19/24 18:31 nausea No 11/19/24 18:31 Vomiting No 11/19/24 18:31 Anesthesia Postop Eval I: Fluid Summary Crystalloid volume administer 50 11/19/24 18:31 (ml) Colloids volume administered ( ml) Blood Product volume administered (ml) Total IV fluid infused 50 11/19/24 18:31 Anesthesia Postop Eval I: Summary Notes Anesthesia Complication No 11/19/24 18:31 Anesthesia Complication Comment: Post-operative progress note Anesthesia: Postop Eval II Evaluation Mental status: Awake and Calm Pain Level: 0 nausea: No Vomiting: No
[2024-11-19] MEDS: Acetaminophen 325 MG Tablet 650 MG PO (19:56)
[2024-11-19] MEDS: Morphine 2 MG/ML Syringe IV (21:05)
[2024-11-20 01:13] VITALS: BP 135/80; PULSE 86; RESP 16; TEMP 36.6; O2SAT 99
[2024-11-20] MEDS: Morphine 2 MG/ML Syringe IV (02:12)
[2024-11-20 03:42] VITALS: BMI 25.2
[2024-11-20 04:30] VITALS: BP 123/67; PULSE 86; RESP 16; TEMP 36.6; O2SAT 98
[2024-11-20] MEDS: Piperacil/Tazobactam 3.375 GM in 0.9% Normal Saline (50mL MB+) 50 ML IV (05:03)
--- NOTE | 2024-11-20 07:12 | PN.HOSP_ITS ---
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 Diagnostic data reviewed this a.m. shows improvement in patient transaminases. Alkaline phosphatase slightly elevated. Will discuss with GI regarding disposition Objective Data Objective Data Vital Signs: Vital Signs Temp Pulse Resp BP Pulse Ox O2 Del Method O2 Flow Rate 98 F 86 16 123/67 H 98 Room Air 2 11/20/24 04:30 11/20/24 04:30 11/20/24 04:30 11/20/24 04:30 11/20/24 04:30 11/20/24 04:30 11/19/24 16:18 Oxygen Flow Rate (L/min) 2 Oxygen Delivery Method Room Air Weight: 75.2 kg Body Mass Index (BMI) 25.2 Intake & Output: Intake and Output for Last 24 Hours 11/18/24 11/19/24 11/20/24 23:59 23:59 23:59 Intake Total 5524.59 / 5524.59 700 / 920 930 / 930 Output Total 1150 / 1150 800 / 800 500 / 500 Balance 4374.59 / 4374.59 -100 / 120 430 / 430 Lab / Micro Data 11/20/24 07:44 11/20/24 07:44 Labs: Laboratory Results - last 24 hr 11/17/24 21:54: Diff Path Review Reviewed Micro: Microbiology 11/17/24 23:43 Blood Culture (Wb) - Right Forearm Blood Culture - 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 Documented findings related to ERCP procedure. For further details of the procedure please see postoperative report. Fluoroscopic time: 88.3 sec Dose: 37.26 mGy [facility] Rhythm Strip Rhythm Strip: Sinus Tach Rate: 106 Ectopy: PVC(s) Physical Exam Narrative GENERAL: cooperative HEENT: Atraumatic; normocephalic EYES; Anicteric, Normal Conjunctiva NECK; supple, normal thyroid, RESPIRATORY: Diminished to auscultation CARDIOVASCULAR: Regular S1 S2, GI: soft, normoactive bowel sounds, : No Renal angle tenderness; EXTREMITIES: No edema, no clubbing, MUSCULOSKELETAL: no muscle wasting NEURO: Awake; no lateralizing signs. SKIN: No Rash PSYCH; Flat affect Assessment & Plan Assessment/Plan (1) Acute cholecystitis with acute cholangitis: (2) Hepatitis: (3) Acute metabolic encephalopathy: PLAN: Plan Patient is a 79-year-old gentleman with history of biliary stent placement early October for painless jaundice who presented back to the emergency department with abdominal pain. Patient was found to have slightly elevated transaminases. CT demonstrated evidence suspicious for ascending cholangitis with pneumobilia. Admitted to the intensive care unit consultation placed to general surgery as well as GI 1. Abdominal pain ? Secondary to suspected acute ascending cholangitis. CT of the abdomen and pelvis obtained on admission demonstrated pneumobilia as well as findings concerning for acute cholecystitis. Patient was admitted to the intensive care unit. Patient was started on broad-spectrum antibiotic therapy with piperacillin tazobactam. Consult placed to both GI as well as general surgery. With a rapid improvement in patient pain surgery did not think patient had acute cholecystitis. Plan is for patient to undergo ERCP ?11/20/2023; Patient underwent ERCP the day prior with removal of his previous stent and placement of a metal stent. Diagnostic data reviewed this a.m. shows improvement in patient transaminases. Alkaline phosphatase slightly elevated. Will discuss with GI regarding disposition 2. Choledolithiasis Status post biliary sphincterotomy and balloon extraction. A pancreatic sphincterotomy was performed. One temporary stent was placed into the ventral pancreatic duct by Dr. Myers on 10/25/2024 ? 11/2024; patient underwent removal of the old stent with placement of a metal stent. 3. Acute metabolic encephalopathy ? Secondary to suspected acute cholangitis management as discussed above 4. Hypothyroidism ? Patient is on levothyroxine home dose continued 5. DVT prophylaxis ? SCDs for now Time spent in the patient's overall evaluation,decision-making process, review of diagnostic data, adjustment of management, discussion with other providers, nursing nursing and ancillary staff involved in patient's care documentation,38 Minutes Charges/Coding Visit Charges Inpatient E&M: 07164 Subs Hosp L2
--- NOTE | 2024-11-20 07:39 | PN.CC_ITS ---
Objective Data Objective Data Vital Signs: Vital Signs Temp Pulse Resp BP Pulse Ox O2 Del Method O2 Flow Rate 98 F 86 16 123/67 H 98 Room Air 2 11/20/24 04:30 11/20/24 04:30 11/20/24 04:30 11/20/24 04:30 11/20/24 04:30 11/20/24 04:30 11/19/24 16:18 Oxygen Flow Rate (L/min) 2 Oxygen Delivery Method Room Air Weight: 165 lb 12.602 oz Body Mass Index (BMI) 25.2 Intake & Output: Intake and Output for Last 24 Hours 11/18/24 11/19/24 11/20/24 23:59 23:59 23:59 Intake Total 5524.59 / 5524.59 700 / 920 930 / 930 Output Total 1150 / 1150 800 / 800 500 / 500 Balance 4374.59 / 4374.59 -100 / 120 430 / 430 Lab / Micro Data 11/19/24 05:00 11/19/24 05:00 Labs: Laboratory Results - last 24 hr 11/17/24 21:54: Diff Path Review Reviewed Micro: Microbiology 11/17/24 23:43 Blood Culture (Wb) - Right Forearm Blood Culture - 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 Documented findings related to ERCP procedure. For further details of the procedure please see postoperative report. Fluoroscopic time: 88.3 sec Dose: 37.26 mGy Reading Location: [facility] Rhythm Strip Rhythm Strip: Sinus Tach Rate: 106 Ectopy: PVC(s)
--- NOTE | 2024-11-20 07:46 | PCM.PN.SRG ---
Subjective Subjective Patient had ERCP yesterday afternoon. He reports that he had some mild epigastric pain afterwards but currently is not having no pain. Objective Data Objective Data Vital Signs: Vital Signs Temp Pulse Resp BP Pulse Ox O2 Del Method O2 Flow Rate 98 F 86 16 123/67 H 98 Room Air 2 11/20/24 04:30 11/20/24 04:30 11/20/24 04:30 11/20/24 04:30 11/20/24 04:30 11/20/24 04:30 11/19/24 16:18 Oxygen Flow Rate (L/min) 2 Oxygen Delivery Method Room Air Weight: 165 lb 12.602 oz Body Mass Index (BMI) 25.2 Intake & Output: Intake and Output for Last 24 Hours 11/18/24 11/19/24 11/20/24 23:59 23:59 23:59 Intake Total 5524.59 / 5524.59 700 / 920 930 / 930 Output Total 1150 / 1150 800 / 800 500 / 500 Balance 4374.59 / 4374.59 -100 / 120 430 / 430 Lab / Micro Data 11/19/24 05:00 11/19/24 05:00 Labs: Laboratory Results - last 24 hr 11/17/24 21:54: Diff Path Review Reviewed Micro: Microbiology 11/17/24 23:43 Blood Culture (Wb) - Right Forearm Blood Culture - Preliminary GNR lactose molasses feed mixer 11/17/24 23:37 Blood Culture (Wb) - Anticubital Left Blood Culture - Preliminary GNR lactose molasses feed mixer 11/17/24 21:55 Mucosa - Nasopharyngeal SARS-CoV-2, Influenza & RSV (PCR) - Final Radiography Diagnostic Testing: Radiology Impression Endo Retro Cholangiopancreatogram 11/19/24 16:38 IMPRESSION: 1. Documented findings related to ERCP procedure. For further details of the procedure please see postoperative report. Fluoroscopic time: 88.3 sec Dose: 37.26 mGy Reading Location: [facility] Rhythm Strip Rhythm Strip: Sinus Tach Rate: 106 Ectopy: PVC(s) Physical Exam Const oriented x3 and no apparent distress Resp normal respiratory effort GI soft to palpation and non-tender Assessment & Plan Assessment/Plan (1) Hyperbilirubinemia: PLAN: Patient had ERCP yesterday. Stent was removed and the patient had a metal stent placed. Morning labs are still pending. The patient may advance to regular diet if okay with Dr. Myers. I would like him to follow-up with me to discuss cholecystectomy Mike Malagon MD Pager: [facility] [address] [place] [address], [address] [place] [address] Office:
[2024-11-20 08:25] LABS: Absolute Neutrophil Count 14.9 X10^3/uL (2.0-7.7); Basophil# 0.04 X10^3/uL; Basophil% 0.2 % (0-1); Eosinophil# 0.09 X10^3/uL; Eosinophils% 0.5 % (0-5); Hematocrit 40.7 % (40-54); Hemoglobin 13.2 g/dL (13.0-16.5); Lymphocyte % 3.6 % (19-41); Mean Corp Hgb Conc 32.4 g/dL (32-36); Mean Corpuscular Hgb 32.2 pg (27.0-32.0); Mean Corpuscular Volume 99.3 fL (80-94); Mean Platelet Vol. 10.1 fl (6.2-12.0); Monocyte# 0.55 X10^3/uL; Monocyte% 3.3 % (0-10); NRBC Flagged by Analyzer 0 % (0-5); Neutrophil # 14.93 X10^3/uL (2.7-7.7); Neutrophil % 90.4 % (47-70); POSITIVE DIFFERENTIAL YES; Platelet Count 173 K/mm3 (150-450); RBC Distribution Width CV 14.2 % (11.6-14.6); White Blood Count 16.5 K/mm3 (4.4-11.0)
[2024-11-20 08:39] LABS: AST(SGOT) 132 U/L (15-37); Alanine Aminotransfer ALT/SGPT 118 U/L (16-61); Albumin, Serum 2.3 g/dL (3.2-5.0); Alkaline Phosphatase 375 U/L (45-117); Anion Gap 7 (5-15); BUN 20 mg/dL (7-18); BUN/Creat Ratio 30.1 RATIO (10-20); Bilirubin, Direct 2.91 mg/dL (0.00-0.30); Calcium,Total 8.8 mg/dL (8.5-10.1); Chloride 108 mmol/L (98-107); Creatinine, Serum 0.66 mg/dL (0.70-1.30); EST Glomerular Filtration Rate 124 mL/min (>60); Est Glom Filt Rate - Afr Amer 150 mL/min (>60); Estimated Creatinine Clearance 74.81 ml/min; Globulin 4.2 g/dL (2.2-4.2); Glucose 82 mg/dL (74-106); Magnesium 2.3 mg/dL (1.6-2.6); Phosphorus 1.8 mg/dL (2.5-4.9); Potassium 3.7 mmol/L (3.5-5.1); Protein, Total 6.5 g/dL (6.4-8.2); Sodium Level 138 mmol/L (136-145)
[2024-11-20 09:00] VITALS: BP 131/81; PULSE 73; RESP 16; TEMP 36.4; O2SAT 99
--- NOTE | 2024-11-20 09:17 | DS.PCM_ITS ---
Providers Date of Admission: 11/18/24 Date of Discharge: 11/20/24 Primary Care Physician: Dr. Efrain Peters, Consultations 11/18/24 02:52 Consult: [employer] Co[employer] Machine Offbearer / Pulmonary Medicine Routine Consulting Provider: Intensivists/Pulmonary Med Reason for Consult: Acute Cholecystitis, Ascending Cholangitis and recent CBD stone with stent. EMERGENT Consult: No Notified: Yes Date Notified: 11/18/24 Time Notified: 07:30 Method of Notification: Telemed referral 11/18/24 07:27 Consult: Gastroenterology Routine Consulting Provider: [facility] Reason for Consult: asecending cholangitis EMERGENT Consult: No Notified: Yes Date Notified: 11/18/24 Time Notified: 07:32 Method of Notification: Verbal Consult: General Surgery Routine Consulting Provider: Mike Malagon Reason for Consult: Acute Cholecystitis EMERGENT Consult: No Notified: Yes Date Notified: 11/18/24 Time Notified: 07:28 Method of Notification: Verbal Reason For Visit: ACUTE CHOLECYSTITIS, ASCENDING CHOLANGITIS AFTER Diagnosis Discharge Diagnosis (1) Acute cholecystitis with acute cholangitis: Status: Acute Code(s): K81.0 - Acute cholecystitis; K83.09 - Other cholangitis (2) Hepatitis: Status: Acute Code(s): K75.9 - Inflammatory liver disease, unspecified (3) Acute metabolic encephalopathy: Status: Acute Code(s): G93.41 - Metabolic encephalopathy Plan Patient is a 79-year-old gentleman with history of biliary stent placement early October for painless jaundice who presented back to the emergency department with abdominal pain. Patient was found to have slightly elevated transaminases. CT demonstrated evidence suspicious for ascending cholangitis with pneumobilia. Admitted to the intensive care unit consultation placed to general surgery as well as GI 1. Abdominal pain ? Secondary to suspected acute ascending cholangitis. CT of the abdomen and pelvis obtained on admission demonstrated pneumobilia as well as findings concerning for acute cholecystitis. Patient was admitted to the intensive care unit. Patient was started on broad-spectrum antibiotic therapy with piperacillin tazobactam. Consult placed to both GI as well as general surgery. With a rapid improvement in patient pain surgery did not think patient had acute cholecystitis. Plan is for patient to undergo ERCP ?11/20/2023; Patient underwent ERCP the day prior with removal of his previous stent and placement of a metal stent. Diagnostic data reviewed this a.m. shows improvement in patient transaminases. Alkaline phosphatase slightly elevated. Case was discussed with tasha plan was made to discharge patient home with 10 days of antibiotic to 2. Choledolithiasis Status post biliary sphincterotomy and balloon extraction. A pancreatic sphincterotomy was performed. One temporary stent was placed into the ventral pancreatic duct by Dr. Myers on 10/25/2024 ? 11/2024; patient underwent removal of the old stent with placement of a metal stent. 3. Acute metabolic encephalopathy ? Secondary to suspected acute cholangitis management as discussed above 4. Hypothyroidism ? Patient is on levothyroxine home dose continued 5. DVT prophylaxis ? SCDs for now Time spent in the patient's overall evaluation,decision-making process, review of diagnostic data, adjustment of management, discussion with other providers, nursing nursing and ancillary staff involved in patient's care documentation,38 Minutes Medications at Discharge Home Medications levothyroxine 175 mcg tablet 125 mcg PO DAILY 11/23/17 acetaminophen 325 mg tablet 650 mg (2 x 325 mg) PO Q6H PRN PRN Pain 1-10 Or Fever #0 tabs 11/20/24 amoxicillin 875 mg-potassium clavulanate 125 mg tablet 1 tab PO BID #20 tabs 11/20/24 pantoprazole 40 mg tablet,delayed release (Protonix) 40 mg PO DAILY #30 tabs 11/20/24 Physical Exam Narrative GENERAL: cooperative HEENT: Atraumatic; normocephalic EYES; Anicteric, Normal Conjunctiva NECK; supple, normal thyroid, RESPIRATORY: Diminished to auscultation CARDIOVASCULAR: Regular S1 S2, GI: soft, normoactive bowel sounds, : No Renal angle tenderness; EXTREMITIES: No edema, no clubbing, MUSCULOSKELETAL: no muscle wasting NEURO: Awake; no lateralizing signs. SKIN: No Rash PSYCH; Flat affect Weight / BMI Weight Weight: 75.2 kg Body Mass Index (BMI) 25.2 ABG / Lab / Microbiology Data 11/20/24 07:44 11/20/24 07:44 Laboratory: Laboratory Results - last 24 hr 11/17/24 21:54: Diff Path Review Reviewed 11/20/24 07:44: WBC 16.5 H, RBC 4.10 L, Hgb 13.2, Hct 40.7, MCV 99.3 H, MCH 32.2 H, MCHC 32.4 D, RDW Std Deviation 52.0 H, RDW Coeff of Meri 14.2, Plt Count 173, MPV 10.1, Immature Gran % (Auto) 2.000 H, Neut % (Auto) 90.4 H, Lymph % (Auto) 3.6 L, Griggs % (Auto) 3.3, Eos % (Auto) 0.5, Baso % (Auto) 0.2, Absolute Neuts (auto) 14.9 H, Absolute Lymphs (auto) 0.60 L, Nucleated RBC % 0, Sodium 138, Potassium 3.7, Chloride 108 H, Carbon Dioxide 23.0, Anion Gap 7, BUN 20 H, C reatinine 0.66 L, Estim Creat Clear Calc 74.81, Est GFR (MDRD) Af Amer 150, Est GFR (MDRD) Non-Af 124, BUN/Creatinine Ratio 30.1 H, Glucose 82, Calcium 8.8, P hosphorus 1.8 L, Magnesium 2.3, Total Bilirubin 4.10 H, Direct Bilirubin 2.91 H, AST 132 H, ALT 118 H, Alkaline Phosphatase 375 H, Total Protein 6.5, Albumin 2.3 L, Globulin 4.2 Microbiology: Microbiology 11/17/24 23:43 Blood Culture (Wb) - Right Forearm Blood Culture - Preliminary GNR lactose conflict resolution professional 11/17/24 23:37 Blood Culture (Wb) - Anticubital Left Blood Culture - Preliminary Escherichia coli 11/17/24 23:58 Urine, Clean Catch Urine Culture - Final Culture exhibits no growth. 11/17/24 21:55 Mucosa - Nasopharyngeal SARS-CoV-2, Influenza & RSV (PCR) - Final Radiography Diagnostic Testing: Radiology Impression Endo Retro Cholangiopancreatogram 11/19/24 16:38 IMPRESSION: 1. Documented findings related to ERCP procedure. For further details of the procedure please see postoperative report. Fluoroscopic time: 88.3 sec Dose: 37.26 mGy Reading Location: [facility] Instructions Discharge Diet: No restrictions Discharge Activity: Return to Normal Activity Call your doctor if you observe: Fever of 101 or Higher, Shortness of breath, Fainting spells and Chest pain DC O2, CPAP, BIPAP Needs Home O2 Discharge instructions: No Meaningful Use Info Meaningful Use Meaningful Use Diagnoses (Choose all that apply): None applicable Ischemic Stroke Statin Dosing Therapy Reference: STATIN DOSE THERAPY REFERENCE: * Patients > 75 years receive moderate or high dose statin therapy. * Patients 75 years or YOUNGER should receive HIGH intensity statin dose unless contraindicated. You will be required to document reason for non-treatment if statin daily dose does not meet guidelines. HIGH DOSE STATIN THERAPY DAILY Atorvastatin > than or = to 40 mg Rosuvastatin > than or = to 20 mg Amlodipine + Atorvastatin > than or = to 2.5/40 mg Ezetimibe + Simvastatin 10/80 mg Simvastatin 80mg Discharge Plan Admission Admit Date/Time: 11/18/24 02:00 Attending Provider: Camilo Upton Primary Care Provider: Efrain Peters Consulting Providers: Camilo Blanc; Sheyla Newton; Mike Malagon; Zion Irving; Sancho Gordon; Tunde Wills; Piter Wynn; Camilo Gutierrez; Wyatt Sparks; Declan Petersen; Candace Willams; Lambert Gann; Cornelius Reilly; Ravi Conde; Rosalba Hatfield; Luisa Rogers; Johnna Ray; Joce Johnson; Jordin Zhang; Kemal Olsen; Dick Frankel; Gabino Womack; Mickey Méndez; Dmitriy Vyas; Mike Mitchell; Jacky Rosa Discharge Orders/Prescriptions Prescriptions: New amoxicillin-pot clavulanate 875-125 mg tablet 1 tab PO BID Qty: 20 0RF pantoprazole [Protonix] 40 mg tablet,delayed release (DR/EC) 40 mg PO DAILY Qty: 30 0RF acetaminophen 325 mg Tablet 650 mg PO Q6H PRN PRN (Reason: Pain 1-10 Or Fever) Qty: 0 0RF Continued levothyroxine 175 MCG tablet 125 mcg PO DAILY MDD THYROID Referrals / Follow Up: Mike Malagon MD [Med Staff - Active Staff] - 12/18/24 (Call to schedule an appointment) Efrain Peters DO [Primary Care Provider] - Within 1 Week Quan Myers DO [Med Staff - Active Staff] - Within 1 Month Disposition Disposition (needs filled in before D/C Order can be placed): Home, Self Care Charges/Coding Visit Charges Inpatient E&M: 86688 Disch Hosp >30min
[2024-11-20] MEDS: Pantoprazole Sodium 40 MG in 0.9% Normal Saline (100mL MB+) 100 ML 330 MG IV (09:23)
== END 2024-11-20 12:28 | disposition home or self-care (01) | DRG 871 ==
LOC: ED 11-18 01:14 → ICU 11-18 02:06
PROVIDERS: Internal Medicine; Internal Medicine Gastroenterology; Admitting Provider Internal Medicine; Emergency Provider Emergency Medicine; PCP Student in an Organized Health Care Education/Training Program; Referring Provider Emergency Medicine; Visit Provider Internal Medicine
PROC: 0FC98ZZ Extirpation of Matter from Common Bile Duct, Via Natural or Artificial Opening Endoscopic (ICD-10-PCS; CPT 43260; principal; 2024-11-19 16:10)
DX: A41.50 Gram-negative sepsis, unspecified (principal); G93.41 Metabolic encephalopathy; E87.20 Acidosis, unspecified; K80.61 Calculus of gallbladder and bile duct with cholecystitis, unspecified, with obstruction; K83.8 Other specified diseases of biliary tract; D64.9 Anemia, unspecified; K75.9 Inflammatory liver disease, unspecified; I10 Essential (primary) hypertension; E03.9 Hypothyroidism, unspecified; K21.9 Gastro-esophageal reflux disease without esophagitis; M19.90 Unspecified osteoarthritis, unspecified site; R65.20 Severe sepsis without septic shock; I25.10 Atherosclerotic heart disease of native coronary artery without angina pectoris; E80.7 Disorder of bilirubin metabolism, unspecified; Z79.890 Hormone replacement therapy; R74.01 Elevation of levels of liver transaminase levels; R09.02 Hypoxemia; N52.9 Male erectile dysfunction, unspecified
CPT/HCPCS: 36415; 71260; 74177; 74330; 76000; 80048; 80053; 80076; 81001; 82140; 82803; 83605; 83690; 83735; 84100; 85025; 87040; 87077; 87086; 87186; 87631; 88108; 88305; 88313; 93005; 94668; 94762; 99285; Q9967; A4216; J2405

== ENCOUNTER 2024-12-18 06:25 | Day surgery (SDC) | payer MEDICARE, SELFPAY ==
--- NOTE | 2024-12-17 16:37 | PAT.ANESEVAL ---
Pre-Assessment Diagnosis/Proposed Procedure Planned Operative Procedure(s): cscope Anesthesia History Anesthesia History - day care director: Anesthesia History - day care director Hx Hospitalization Yes 12/17/24 15:49 Any Problems With Anesthesia No 12/17/24 15:49 Cholinesterase deficiency No 12/17/24 15:49 You/Your Family Experience No 12/17/24 15:49 fever (hyperthermia) with Relationship Recent Exposure to Contagious No 10/25/24 09:30 Disease Does patient have nerve No 12/17/24 15:49 stimulator Patient instructed to have device shut off --Does patient have Pacemaker or ICD? When Was Last Pacemaker Check QUESTION #4 FULL TEXT: You/Your Family Experience fever (hyperthermia) with Anesthesia Last Oral Intake Last Oral intake: Last Oral Intake NPO since Meds taken in AM with sips of water? Meds patient instructed to take am of surgery PONV PONV - day care director: PONV - day care director Female No 12/17/24 15:49 HX of Motion Sickness No 12/17/24 15:49 HX of N/V After Surgery No 12/17/24 15:49 Non-Smoker Yes 12/17/24 15:49 Duration of Surgery greater No 12/17/24 15:49 than 60 minutes Number of Risk Factors 1 12/17/24 15:49 PONV Score Low Risk 12/17/24 15:49 Height & Weight Height & Weight: Anesthesia: Height & Weight Height 5 ft 8 in 12/12/24 13:43 Respiratory Assessment Respiratory Assessment - day care director: Respiratory Tract Infection Hx - day care director Hx Respiratory Tract Infection No 12/17/24 15:49 STOP Sleep Apnea STOP Sleep Apnea - day care director: STOP Sleep Apnea - day care director Hx Hypertension Yes 12/17/24 15:49 Hx Sleep Apnea No 12/17/24 15:49 CPAP BIPAP Do you snore loudly (louder No 12/17/24 15:49 than talking or can be heard Do you often feel tired/ No 12/17/24 15:49 fatigued/ sleepy during daytime? Has anyone observed you stop No 12/17/24 15:49 breathing during sleep? STOP Results Negative 12/17/24 15:49 QUESTION #5 FULL TEXT : Do you snore loudly (louder than talking or can be heard through closed doors)? Tobacco Use History Tobacco Use History - day care director: Tobacco Use History - day care director Tobacco Use Smoking Status Never smoker 12/17/24 15:49 Hx Tobacco Use No 12/17/24 15:49 Years Smoking Packs Smoked per Day Smoking Cessation Date was within the last 15 years Hx Smoking Cessation Date Hx Smoking Cessation Counseling Hematologic Medial History Hematologic Hx - day care director: Hematologic Medical Hx - consulting hr professional Hx of Blood Transfusion No 12/17/24 15:49 Hx of Transfusion in last 3 No 12/17/24 15:49 Months Date of Last Transfusion (if within last 3 months) Ever experience any problems No 12/17/24 15:49 with transfusion(s)? Specify any problems Hx of Preganancy in last 3 N/A 12/17/24 15:49 Months Nurse Filling Out Transfusion NBUCHER 12/17/24 15:49 & Questions: Date: 12/17/24 12/17/24 15:49 Time: 15:50 12/17/24 15:49 Patient unable to answer at this time (ie. confused, unrespo /Reproduction History /Reproductive History - day care director: /Reproductive Hx- day care director Hx Now Gestational Age (in weeks): EDC: Hx Hx Para Hx Section SAB PFSH Medical History Non-smoker Hypertension Right inguinal hernia Hypothyroid Nocturia Internal hemorrhoids GERD (gastroesophageal reflux disease) Erectile dysfunction Diverticulosis Home Medications ?Medication ?Instructions ?Recorded ?Last Taken ?Type acetaminophen 325 mg tablet 650 mg (2 x 325 mg) PO Q6H PRN PRN 11/20/24 Unknown Rx Pain 1-10 Or Fever #0 tabs geriatric mocaobcm-fqnz-bgeg 1 tab PO QDAY 12/12/24 Unknown History levothyroxine 125 mcg capsule 125 mcg PO QDAY 12/12/24 Unknown History Allergy/AdvReac Type Severity Reaction Status Date / Time No Known Allergies Allergy Verified 12/12/24 13:44 Family History Mother Asthma Father Heart disease High cholesterol Surgical History S/P right inguinal hernia repair History of hydrocelectomy Hx of colonoscopy Social History Smoking Status: Never smoker second hand exposure: No alcohol intake: never substance use type: does not use caffeine: Yes what type of physical activity do you participate in: walking, aerobics and weight training frequency: daily Audit: Pertinent Findings Pertinent Findings EKG Perinent findings: 11/19/2024 sinus tach 106 bpm frequent PVCs. Possible inferior infarct. T wave abnormality consider lateral ischemia. No other EKGs to compare Additional pertinent findings: WBC 16.5/mm 3. 11/20/2024 Current Visit Impressions Current Visit Impressions: Frequent PVCs on 11/17/2024 EKG. Unable to find old EKG. May consider repeat EKG on day of procedure to assess. Recommendation Anesthesia Recommendation Anesthesia recommendation: OPTIMIZED for anesthesia
[2024-12-18] VITALS (8 sets, daily range): BP systolic 109–149; BP diastolic 71–94; PULSE 69–82; RESP 14–16; TEMP 36.2–36.4; O2SAT 95–100; BMI 24.2
--- NOTE | 2024-12-18 06:31 | PCM.HP.BLA ---
History and Physical Date of Admission: 12/18/24 Intake Vital Signs 11/19/2508:42 12/12/2512:43 Height 5 ft 8 in 5 ft 8 in Weight: 163 lb BMI 24.7 BP 115/76 Blood Pressure Location Rt brachial Position Sitting Respiration 17 Pulse 82 Pulse Source Monitor Pulse Oximetry (%) 96 Oxygen Delivery Method room air Intake Visit Reasons: GALLBLADDER Chief Complaint: gallbladder and colonoscopy Is patient in pain?: Yes Allergies No Known Allergies Allergy (Verified 12/12/24 13:44) Medications ?Medication ?Instructions ?Recorded ?Confirmed ?Type acetaminophen 325 mg tablet 650 mg (2 x 325 mg) PO Q6H PRN PRN 11/20/24 12/12/24 Rx Pain 1-10 Or Fever #0 tabs geriatric ilgmzyso-cwvd-avvc 1 tab PO QDAY 12/12/24 12/12/24 History levothyroxine 125 mcg capsule 125 mcg PO QDAY 12/12/24 12/12/24 History Have you fallen in the past year?: No PFSH Medical History (Updated 12/12/24 @ 14:[address] Mike Malagon MD) Non-smoker Hypertension Right inguinal hernia Hypothyroid Nocturia Internal hemorrhoids GERD (gastroesophageal reflux disease) Erectile dysfunction Diverticulosis Surgical History S/P right inguinal hernia repair History of hydrocelectomy Hx of colonoscopy Family History Mother AsthmaFather Heart disease High cholesterol Social History Smoking Status: Never smoker second hand exposure: No alcohol intake: never substance use type: does not use caffeine: Yes what type of physical activity do you participate in: walking, aerobics and weight training frequency: daily HPI HPI HPI: Patient is a 79-year-old male following up after hospitalization. The patient is here for 2 issues. First issue is his gallbladder and the second is a colonoscopy. He notes that for several months he has been having difficulty passing stool and he has noted a change in stool caliber. His last colonoscopy was 8 years ago. He denies blood in the stool. He does have abdominal pain. The patient is also being worked up for a stricture in his common bile duct. He went to [place] and had a EUS with biopsy of a 10 x 11 mm lesion in the distal common bile duct. The biopsy came back benign as did the brushings. Patient still complaining of right upper quadrant pain. The patient had metal common bile duct stent placed by Dr. Myers during his last hospitalization. ROS General General: No weight change, appetite, fatigue, colon cancer, breast cancer or weakness HEENT HEENT: No difficulty swallowing, eye injury, eye surgery, swollen glands or hoarseness Endo Endocrine: Yes thyroid disease; No diabetes mellitus, thyroid cancer, Hair loss, heat intolerance or cold intolerance Skin Skin: No rash or changing moles Musc Musculoskeletal: No back problems, arthritis, rheumatoid arthritis, gout or joint pain Cardio Cardiovascular: No murmur, pacemaker, heart disease, atrial fibrillation, high blood pressure, heart attack, heart stent, palpitations, shortness of breat with exertion or chest pain Psych Psychiatric: No depression, anxiety or hearing voices Resp Respiratory: No shortness of breath, No sleep apnea, No cough, No COPD, No asthma, No emphysema and No wheezing Gastro Gastrointestinal: Yes abdominal pain, No nausea or vomiting, No diarrhea, Yes constipation, No blood in stool, Yes acid reflux, No hemorrhoids, No ulcers, Yes gallbladder problem and No black,tarry stools Margarito Hematologic: No blood thinners, No blood disorders, No bleeding, No anemia and No blood clots Neuro Neurologic: No system reviewed and no additional complaints, except as documented, No as per HPI, No abnormal gait, No abnormal hearing, No abnormal movements, No abnormal speech, No behavioral changes, No burning sensations, No confusion, No convulsions, No disequilibrium, No dizziness, No localized weakness, No frequent falls, No headache(s), No lack of coordination, No loss of vision, No memory loss, No numbness, No other visual disturbances, No radicular pain, No restless legs, No sensory deficit, No syncope, No tingling, No tremor(s), No weakness and No other Exam Const General: cooperative Orientation: alert and oriented x3 HENMT Head: normal to inspection Neck Neck: normal visual inspection and full ROM Chest Chest palpation & inspection: normal inspection of the chest Resp Effort & Inspection: normal respiratory effort Auscultation: clear to auscultation bilaterally Cardio Rate: regular rate Rhythm: regular rhythm GI Inspection: non-distended Palpation: soft and tender in the RUQ Skin General: no rashes or lesions noted Neuro General: patient alert and patient oriented x3 Extrem General: full ROM Psych Appearance: grossly normal Mental Status: mental status grossly normal Assessment and Plan Assessment and Plan (1) Change in stool caliber: Status: Acute Plan: Patient is having change in stool caliber and request colonoscopy to evaluate as he thinks he has a partial blockage. He reports that is difficult to pass stools and the caliber has changed. I explained endoscopy in detail to the patient. I explained the risks including but not limited to stroke or heart attack with anesthesia, perforation of the GI tract, bleeding, infection. I explained that any of these could necessitate further emergency surgery. The patient understands and all questions were answered sufficiently. The patient wishes to proceed with procedure. 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 I will proceed with laparoscopic cholecystectomy after colonoscopy. I discussed the procedure in detail with the patient. I discussed the risks, benefits, and alternatives of the procedure. I discussed the risks including but not limited to bleeding, infection, injury to surrounding organs such as the liver, bile duct, bowels. I did discuss the possibility of having to convert to an open procedure as well as the possibility that if any injuries occurred this may necessitate further surgery at a tertiary care center. Mike Malagon MD Pager: [facility] [address] [place] [address], [address] [place] [address] Office: I have examined the patient and the H&P has been reviewed. There are no clinical changes since date of exam.
--- NOTE | 2024-12-18 07:24 | PCM.PRE.AN2 ---
ASA Classification* ASA Classification ASA Classification: 2 Assessment & Plan Anesthesia* Anesthesia Assessment Anesthesia Assessment: Discussed sedation and/or anesthesia options, risks, benefits, and alternatives with patient/parents/legal guardian/POA. Questions invited. The patient/parents/legal guardian/POA seems to understand and agrees to proceed with anesthesia plan. Reviewed the physical assessment, medical history, allergy history and patient home medications list prior to surgery/procedure/anesthetic and documented any changes. Performed airway and anesthesia risk assessments. Anesthesia Type Anesthesia Type: MAC History Source History Obtained from:: Patient and Chart Anesthesia Focused Assessment* Temperature: 97.6 F Pulse Rate: 82 Blood Pressure: 127/94 Respiratory Rate: 16 Pulse Ox: 98 Oxygen Delivery Method: Room Air Airway Assessment Mouth opens: >3 cm Mallampati Score: I Teeth Condition: Caps/Crowns (Patient has a crown on right upper molar. It is tight.) Neck Range of motion (ROM): Full ROM Focused Labs Anesthesia Preop lab: CBC WBC 16.5 K/mm3 (4.4-11.0) H 11/20/24 07:44 11/20/24 RBC 4.10 M/mm3 (4.6-6.2) L 11/20/24 07:44 11/20/24 Hgb 13.2 g/dL (13.0-16.5) 11/20/24 07:44 11/20/24 Hct 40.7 % (40-54) 11/20/24 07:44 11/20/24 Plt Count 173 K/mm3 (150-450) 11/20/24 07:44 11/20/24 CHEMISTRY Potassium 3.7 mmol/L (3.5-5.1) 11/20/24 07:44 11/20/24 Sodium 138 mmol/L (136-145) 11/20/24 07:44 11/20/24 Magnesium 2.3 mg/dL (1.6-2.6) 11/20/24 07:44 11/20/24 Phosphorus 1.8 mg/dL (2.5-4.9) L 11/20/24 07:44 11/20/24 BUN 20 mg/dL (7-18) H 11/20/24 07:44 11/20/24 Creatinine 0.66 mg/dL (0.70-1.30) L 11/20/24 07:44 11/20/24 Glucose 82 mg/dL (74-106) 11/20/24 07:44 11/20/24 TSH 0.50 uIU/mL (0.358-3.74) 10/16/19 10:25 10/16/19 COAG PT 14.6 SECONDS (11.7-14.9) 10/24/24 14:40 10/24/24 Pre-Assessment Diagnosis/Proposed Procedure Planned Operative Procedure(s): cscope Anesthesia History Anesthesia History - picking tech: Anesthesia History - picking tech Hx Hospitalization Yes 12/17/24 15:49 Any Problems With Anesthesia No 12/17/24 15:49 Cholinesterase deficiency No 12/17/24 15:49 You/Your Family Experience No 12/17/24 15:49 fever (hyperthermia) with Relationship Recent Exposure to Contagious No 12/18/24 06:54 Disease Does patient have nerve No 12/17/24 15:49 stimulator Patient instructed to have device shut off --Does patient have Pacemaker No 12/18/24 06:54 or ICD? When Was Last Pacemaker Check QUESTION #4 FULL TEXT: You/Your Family Experience fever (hyperthermia) with Anesthesia Last Oral Intake Last Oral intake: Last Oral Intake NPO since 00:00 12/18/24 06:54 Meds taken in AM with sips of No 12/18/24 06:54 water? Meds patient instructed to take am of surgery PONV PONV - picking tech: PONV - picking tech Female No 12/17/24 15:49 HX of Motion Sickness No 12/17/24 15:49 HX of N/V After Surgery No 12/17/24 15:49 Non-Smoker Yes 12/17/24 15:49 Duration of Surgery greater No 12/17/24 15:49 than 60 minutes Number of Risk Factors 1 12/17/24 15:49 PONV Score Low Risk 12/17/24 15:49 Height & Weight Height & Weight: Anesthesia: Height & Weight Height 5 ft 8 in 12/18/24 06:54 Weight: 72.3 kg 12/18/24 06:54 Body Mass Index (BMI) 24.2 12/18/24 06:54 Respiratory Assessment Respiratory Assessment - picking tech: Respiratory Tract Infection Hx - picking tech Hx Respiratory Tract Infection No 12/17/24 15:49 STOP Sleep Apnea STOP Sleep Apnea - picking tech: STOP Sleep Apnea - picking tech Hx Hypertension Yes 12/17/24 15:49 Hx Sleep Apnea No 12/17/24 15:49 CPAP BIPAP Do you snore loudly (louder No 12/17/24 15:49 than talking or can be heard Do you often feel tired/ No 12/17/24 15:49 fatigued/ sleepy during daytime? Has anyone observed you stop No 12/17/24 15:49 breathing during sleep? STOP Results Negative 12/17/24 15:49 QUESTION #5 FULL TEXT : Do you snore loudly (louder than talking or can be heard through closed doors)? 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 Specify any problems Hx of Preganancy in last 3 N/A 12/17/24 15:49 Months Nurse Filling Out Transfusion NBUCHER 12/17/24 15:49 & Questions: Date: 12/17/24 12/17/24 15:49 Time: 15:50 12/17/24 15:49 Patient unable to answer at this time (ie. confused, unrespo /Reproduction History /Reproductive History - picking tech: /Reproductive Hx- picking tech Hx Now Gestational Age (in weeks): EDC: Hx Hx Para Hx Section SAB PFSH Medical History Non-smoker Hypertension Right inguinal hernia Hypothyroid Nocturia Internal hemorrhoids GERD (gastroesophageal reflux disease) Erectile dysfunction Diverticulosis Home Medications ?Medication ?Instructions ?Recorded ?Last Taken ?Type acetaminophen 325 mg tablet 650 mg (2 x 325 mg) PO Q6H PRN PRN 11/20/24 Unknown Rx Pain 1-10 Or Fever #0 tabs geriatric kwkyygcz-yrax-arug 1 tab PO QDAY 12/12/24 Unknown History levothyroxine 125 mcg capsule 125 mcg PO QDAY 12/12/24 12/16/24 History Allergy/AdvReac Type Severity Reaction Status Date / Time No Known Allergies Allergy Verified 12/18/24 06:52 Family History Mother Asthma Father Heart disease High cholesterol Surgical History (Updated 12/18/24 @ 07:[address] Stephen Osullivan MD) History of ERCP S/P right inguinal hernia repair History of hydrocelectomy Hx of colonoscopy Social History Smoking Status: Never smoker second hand exposure: No alcohol intake: never substance use type: does not use caffeine: Yes what type of physical activity do you participate in: walking, aerobics and weight training frequency: daily Review of Systems (Anesthesia) ROS Narrative System reviewed and no additional complaints, except as documented.
--- NOTE | 2024-12-18 08:06 | PCM.POST.ANE ---
Anesthesia: Postop Eval I Current Vital Signs Temperature: 97.2 F Pulse Rate: 70 Blood Pressure: 121/76 Respiratory Rate: 14 Pulse Ox: 100 Assessment Airway patent: Yes Spontaneous unlabored respirations: Yes nausea: No Vomiting: No Anesthesia Complication: No Fluid Hydration Crystalloid volume administer (ml): 0 Total IV fluid infused: 0 Progress Note Anesthesia document: Postop Eval 1 completed: Yes
--- NOTE | 2024-12-18 08:07 | OP.COLON_ITS ---
Patient Name: Jhonatan Vaughn Procedure Date: 12/18/2024 7:40 AM Date of : 1945 Age: 79 Procedure: Colonoscopy Indications: Change in stool caliber Providers: Mike Malagon MD Referring MD: Efrain Peters Medicines: Propofol per Anesthesia Patient Profile: This is a 79 year old male. Refer to note in patient chart for documentation of history and physical. Last Colonoscopy: several years ago. Complications: No immediate complications. Procedure: Pre-Anesthesia Assessment: - Prior to the procedure, a History and Physical was performed, and patient medications and allergies were reviewed. The patient's tolerance of previous anesthesia was also reviewed. The risks and benefits of the procedure and the sedation options and risks were discussed with the patient. All questions were answered, and informed consent was obtained. Prior Anticoagulants: The patient has taken no anticoagulant or antiplatelet agents. After reviewing the risks and benefits, the patient was deemed in satisfactory condition to undergo the procedure. After I obtained informed consent, the scope was passed under direct vision. Throughout the procedure, the patient's blood pressure, pulse, and oxygen saturations were monitored continuously. The colonoscope was introduced through the anus and advanced to the cecum, identified by appendiceal orifice and ileocecal valve. The colonoscopy was performed without difficulty. The patient tolerated the procedure well. The quality of the bowel preparation was good. The ileocecal valve, appendiceal orifice, and rectum were photographed. Scope In: 7:49:15 AM Scope Withdrawal Time 0 hours 5 minutes 2 seconds Scope Out: 8:02:14 AM Total Procedure Duration Time 0 hours 12 minutes 59 seconds Findings: The entire examined colon appeared normal on direct and retroflexion views. Impression: - The entire examined colon is normal on direct and retroflexion views. - No specimens collected. Recommendation: - Discharge patient to home. - Resume previous diet. - Continue present medications. - Repeat colonoscopy is not recommended due to current age (66 years or older) for screening purposes. Procedure Code(s): --- Professional --- 38703, Colonoscopy, flexible; diagnostic, including collection of specimen(s) by brushing or washing, when performed (separate procedure) Diagnosis Code(s): --- Professional --- R19.5, Other fecal abnormalities CPT copyright 2021 [employer]. All rights reserved. The codes documented in this report are preliminary and upon matrix repairer review may be revised to meet current compliance requirements. Mike Malagon MD 12/18/2024 8:06:44 AM This report has been signed electronically. Number of Addenda: 0 Note Initiated On: 12/18/2024 7:40 AM
--- NOTE | 2024-12-18 08:07 | OP.CCLET_ITS ---
12/18/2024 Efrain Peters [address] [place] [address] Re : Colonoscopy procedure for Jhonatan Vaughn Dear Dr. Peters This procedure was performed on Wednesday, December 18, 2024. My impressions and recommendations are as follows: Impressions : - The entire examined colon is normal on direct and retroflexion views. - No specimens collected. Recommendations : - Discharge patient to home. - Resume previous diet. - Continue present medications. - Repeat colonoscopy is not recommended due to current age (66 years or older) for screening purposes. My findings are described in the full procedure note, which is enclosed. If I can be of further assistance, please feel free to contact me at Doctor phone number(s): , Work: . Sincerely, Mike Malagon MD 12/18/2024 8:06:44 AM This report has been signed electronically.
--- NOTE | 2024-12-18 09:34 | POSTOPAN2_ITS ---
Anesthesia Postop Eval I Sum Postop Eval Completion status Anesthesia document: Postop Eval 1 completed: Yes Anesthesia Postop Eval I Summary Anesthesia Postop Eval I Summary: Anesthesia Postop Eval I: Assessment Summary Airway patent Yes 12/18/24 09:33 VETERANS' [email or web address] Spontaneous unlabored Yes 12/18/24 09:33 VETERANS' [email or web address] respirations Mental status nausea No 12/18/24 09:33 VETERANS' COUNSELOR.CSIR Vomiting No 12/18/24 09:33 VETERANS' [email or web address].CSIR Anesthesia Postop Eval I: Fluid Summary Crystalloid volume administer 0 12/18/24 09:33 VETERANS' [email or web address] (ml) Colloids volume administered ( ml) Blood Product volume administered (ml) Total IV fluid infused 0 12/18/24 09:33 VETERANS' [email or web address] Anesthesia Postop Eval I: Summary Notes Anesthesia Complication No 12/18/24 09:33 [email or web address]' [email or web address] Anesthesia Complication Comment: Post-operative progress note Anesthesia: Postop Eval II Evaluation Mental status: Awake Pain Level: 0 nausea: No Vomiting: No
--- NOTE | 2024-12-18 09:34 | PCM.POSTANE2 ---
Anesthesia Postop Eval I Sum Postop Eval Completion status Anesthesia document: Postop Eval 1 completed: Yes Anesthesia Postop Eval I Summary Anesthesia Postop Eval I Summary: Anesthesia Postop Eval I: Assessment Summary Airway patent Yes 12/18/24 09:33 [email or web address] Spontaneous unlabored Yes 12/18/24 09:33 FRAME [email or web address].CSIR respirations Mental status nausea No 12/18/24 09:33 FRAME [email or web address].CSIR Vomiting No 12/18/24 09:33 FRAME [email or web address] Anesthesia Postop Eval I: Fluid Summary Crystalloid volume administer 0 12/18/24 09:33 FRAME [email or web address] (ml) Colloids volume administered ( ml) Blood Product volume administered (ml) Total IV fluid infused 0 12/18/24 09:33 FRAME [email or web address] Anesthesia Postop Eval I: Summary Notes Anesthesia Complication No 12/18/24 09:33 FRAME [email or web address] Anesthesia Complication Comment: Post-operative progress note Anesthesia: Postop Eval II Evaluation Mental status: Awake Pain Level: 0 nausea: No Vomiting: No
== END 2024-12-18 08:56 | disposition home or self-care (01) ==
LOC: EN 06:26 → AC 06:27
PROVIDERS: PCP Student in an Organized Health Care Education/Training Program; Referring Provider Student in an Organized Health Care Education/Training Program; Visit Provider Surgery
PROC: 0DJD8ZZ Inspection of Lower Intestinal Tract, Via Natural or Artificial Opening Endoscopic (ICD-10-PCS; CPT 45378; principal; 2024-12-18 07:25)
DX: R19.5 Other fecal abnormalities (principal); E03.9 Hypothyroidism, unspecified; Z79.899 Other long term (current) drug therapy
CPT/HCPCS: 45378; A4216

== ENCOUNTER 2024-12-25 06:01 | Day surgery (SDC) | payer MEDICARE, SELFPAY ==
--- NOTE | 2024-12-19 17:56 | PAT.ANESEVAL ---
Pre-Assessment Diagnosis/Proposed Procedure Planned Operative Procedure(s): LAPAROSCOPIC CHOLESYECTOMY WITH IOC Anesthesia History Anesthesia History - mental health program director: Anesthesia History - mental health program director Hx Hospitalization Yes: [facility] 12/19/24 16:08 Any Problems With Anesthesia No 12/19/24 16:08 Cholinesterase deficiency No 12/19/24 16:08 You/Your Family Experience No 12/19/24 16:08 fever (hyperthermia) with Relationship Recent Exposure to Contagious No 10/25/24 09:30 Disease Does patient have nerve No 12/19/24 16:08 stimulator Patient instructed to have device shut off --Does patient have Pacemaker or ICD? When Was Last Pacemaker Check QUESTION #4 FULL TEXT: You/Your Family Experience fever (hyperthermia) with Anesthesia Last Oral Intake Last Oral intake: Last Oral Intake NPO since Meds taken in AM with sips of water? Meds patient instructed to take am of surgery PONV PONV - mental health program director: PONV - mental health program director Female No 12/19/24 16:08 HX of Motion Sickness No 12/19/24 16:08 HX of N/V After Surgery No 12/19/24 16:08 Non-Smoker Yes 12/19/24 16:08 Duration of Surgery greater Yes 12/19/24 16:08 than 60 minutes Number of Risk Factors 2 12/19/24 16:08 PONV Score Moderate Risk 12/19/24 16:08 Height & Weight Height & Weight: Anesthesia: Height & Weight Height 5 ft 8 in 12/12/24 13:43 Respiratory Assessment Respiratory Assessment - mental health program director: Respiratory Tract Infection Hx - mental health program director Hx Respiratory Tract Infection No 12/19/24 16:08 STOP Sleep Apnea STOP Sleep Apnea - mental health program director: STOP Sleep Apnea - mental health program director Hx Hypertension No 12/19/24 16:08 Hx Sleep Apnea No 12/19/24 16:08 CPAP BIPAP Do you snore loudly (louder No 12/19/24 16:08 than talking or can be heard Do you often feel tired/ No 12/19/24 16:08 fatigued/ sleepy during daytime? Has anyone observed you stop No 12/19/24 16:08 breathing during sleep? STOP Results Negative 12/19/24 16:08 QUESTION #5 FULL TEXT : Do you snore loudly (louder than talking or can be heard through closed doors)? 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 Specify any problems Hx of Preganancy in last 3 N/A 12/19/24 16:08 Months Nurse Filling Out Transfusion [email or web address] 12/19/24 16:08 & Questions: Date: 12/19/24 12/19/24 16:08 Time: 16:12 12/19/24 16:08 Patient unable to answer at this time (ie. confused, unrespo /Reproduction History /Reproductive History - mental health program director: /Reproductive Hx- mental health program director Hx Now Gestational Age (in weeks): EDC: Hx Hx Para Hx Section SAB PFSH Medical History (Updated 12/19/24 @ 16:15 by Fadi Stiles) Wears glasses Non-smoker Hypertension Right inguinal hernia Hypothyroid Nocturia Internal hemorrhoids GERD (gastroesophageal reflux disease) Erectile dysfunction Diverticulosis Home Medications ?Medication ?Instructions ?Recorded ?Last Taken ?Type acetaminophen 325 mg tablet 650 mg (2 x 325 mg) PO Q6H PRN PRN 11/20/24 Unknown Rx Pain 1-10 Or Fever #0 tabs geriatric fylmgcwk-dlyp-hfyk 1 tab PO QDAY 12/12/24 Unknown History levothyroxine 125 mcg capsule 125 mcg PO QDAY 12/12/24 12/16/24 History Allergy/AdvReac Type Severity Reaction Status Date / Time No Known Allergies Allergy Verified 12/19/24 16:04 Family History Mother Asthma Father Heart disease High cholesterol Surgical History History of ERCP S/P right inguinal hernia repair History of hydrocelectomy Hx of colonoscopy Social History Smoking Status: Never smoker second hand exposure: No alcohol intake: never substance use type: does not use caffeine: Yes what type of physical activity do you participate in: walking, aerobics and weight training frequency: daily Audit: Pertinent Findings Pertinent Findings EKG Perinent findings: 11/17/2024 sinus tachycardia 106 frequent PVCs possible inferior infarct cited on or before October 25, 2024 T wave abnormality consider lateral ischemia no old EKG to compare Recommendation Anesthesia Recommendation Anesthesia recommendation: OPTIMIZED for anesthesia
[2024-12-25] VITALS (10 sets, daily range): BP systolic 112–134; BP diastolic 55–80; PULSE 66–90; RESP 16; TEMP 36.2–37; O2SAT 92–100; BMI 24.5
--- NOTE | 2024-12-25 06:32 | EKG12_ITS ---
Test Reason : PREOP Blood Pressure : */* mmHG Vent. 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
--- NOTE | 2024-12-25 07:01 | PCM.HP.BLA ---
History and Physical Date of Admission: 12/25/24 History and Physical Date of Admission: 12/18/24 Intake Vital Signs 11/19/2508:42 12/12/2512:43 Height 5 ft 8 in 5 ft 8 in Weight: 163 lb BMI 24.7 BP 115/76 Blood Pressure Location Rt brachial Position Sitting Respiration 17 Pulse 82 Pulse Source Monitor Pulse Oximetry (%) 96 Oxygen Delivery Method room air Intake Visit Reasons: GALLBLADDER Chief Complaint: gallbladder and colonoscopy Is patient in pain?: Yes Allergies No Known Allergies Allergy (Verified 12/12/24 13:44) Medications ?Medication ?Instructions ?Recorded ?Confirmed ?Type acetaminophen 325 mg tablet 650 mg (2 x 325 mg) PO Q6H PRN PRN 11/20/24 12/12/24 Rx Pain 1-10 Or Fever #0 tabs geriatric bnjntpxw-eqjs-dgfy 1 tab PO QDAY 12/12/24 12/12/24 History levothyroxine 125 mcg capsule 125 mcg PO QDAY 12/12/24 12/12/24 History Have you fallen in the past year?: No PFSH Medical History (Updated 12/12/24 @ 14:[address] Mike Malagon MD) Non-smoker Hypertension Right inguinal hernia Hypothyroid Nocturia Internal hemorrhoids GERD (gastroesophageal reflux disease) Erectile dysfunction Diverticulosis Surgical History S/P right inguinal hernia repair History of hydrocelectomy Hx of colonoscopy Family History Mother AsthmaFather Heart disease High cholesterol Social History Smoking Status: Never smoker second hand exposure: No alcohol intake: never substance use type: does not use caffeine: Yes what type of physical activity do you participate in: walking, aerobics and weight training frequency: daily HPI HPI HPI: Patient is a 79-year-old male following up after hospitalization. The patient is here for 2 issues. First issue is his gallbladder and the second is a colonoscopy. He notes that for several months he has been having difficulty passing stool and he has noted a change in stool caliber. His last colonoscopy was 8 years ago. He denies blood in the stool. He does have abdominal pain. The patient is also being worked up for a stricture in his common bile duct. He went to [place] and had a EUS with biopsy of a 10 x 11 mm lesion in the distal common bile duct. The biopsy came back benign as did the brushings. Patient still complaining of right upper quadrant pain. The patient had metal common bile duct stent placed by Dr. Myers during his last hospitalization. ROS General General: No weight change, appetite, fatigue, colon cancer, breast cancer or weakness HEENT HEENT: No difficulty swallowing, eye injury, eye surgery, swollen glands or hoarseness Endo Endocrine: Yes thyroid disease; No diabetes mellitus, thyroid cancer, Hair loss, heat intolerance or cold intolerance Skin Skin: No rash or changing moles Musc Musculoskeletal: No back problems, arthritis, rheumatoid arthritis, gout or joint pain Cardio Cardiovascular: No murmur, pacemaker, heart disease, atrial fibrillation, high blood pressure, heart attack, heart stent, palpitations, shortness of breat with exertion or chest pain Psych Psychiatric: No depression, anxiety or hearing voices Resp Respiratory: No shortness of breath, No sleep apnea, No cough, No COPD, No asthma, No emphysema and No wheezing Gastro Gastrointestinal: Yes abdominal pain, No nausea or vomiting, No diarrhea, Yes constipation, No blood in stool, Yes acid reflux, No hemorrhoids, No ulcers, Yes gallbladder problem and No black,tarry stools Margarito Hematologic: No blood thinners, No blood disorders, No bleeding, No anemia and No blood clots Neuro Neurologic: No system reviewed and no additional complaints, except as documented, No as per HPI, No abnormal gait, No abnormal hearing, No abnormal movements, No abnormal speech, No behavioral changes, No burning sensations, No confusion, No convulsions, No disequilibrium, No dizziness, No localized weakness, No frequent falls, No headache(s), No lack of coordination, No loss of vision, No memory loss, No numbness, No other visual disturbances, No radicular pain, No restless legs, No sensory deficit, No syncope, No tingling, No tremor(s), No weakness and No other Exam Const General: cooperative Orientation: alert and oriented x3 HENMT Head: normal to inspection Neck Neck: normal visual inspection and full ROM Chest Chest palpation & inspection: normal inspection of the chest Resp Effort & Inspection: normal respiratory effort Auscultation: clear to auscultation bilaterally Cardio Rate: regular rate Rhythm: regular rhythm GI Inspection: non-distended Palpation: soft and tender in the RUQ Skin General: no rashes or lesions noted Neuro General: patient alert and patient oriented x3 Extrem General: full ROM Psych Appearance: grossly normal Mental Status: mental status grossly normal Assessment and Plan Assessment and Plan (1) Change in stool caliber: Status: Acute Plan: Patient is having change in stool caliber and request colonoscopy to evaluate as he thinks he has a partial blockage. He reports that is difficult to pass stools and the caliber has changed. I explained endoscopy in detail to the patient. I explained the risks including but not limited to stroke or heart attack with anesthesia, perforation of the GI tract, bleeding, infection. I explained that any of these could necessitate further emergency surgery. The patient understands and all questions were answered sufficiently. The patient wishes to proceed with procedure. 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 I will proceed with laparoscopic cholecystectomy after colonoscopy. I discussed the procedure in detail with the patient. I discussed the risks, benefits, and alternatives of the procedure. I discussed the risks including but not limited to bleeding, infection, injury to surrounding organs such as the liver, bile duct, bowels. I did discuss the possibility of having to convert to an open procedure as well as the possibility that if any injuries occurred this may necessitate further surgery at a tertiary care center. Mike Malagon MD Pager: [facility] [address] [place] [address], [address] [place] [address] Office: I have examined the patient and the H&P has been reviewed. There are no clinical changes since date of exam.
[2024-12-25] MEDS: 0.9% Normal Saline (1000mL) 1,000 ML 15 ML IV ×2 (07:08→09:43)
--- NOTE | 2024-12-25 07:28 | PCM.PRE.AN2 ---
ASA Classification* ASA Classification ASA Classification: 3 Assessment & Plan Anesthesia* Anesthesia Assessment Anesthesia Assessment: Discussed sedation and/or anesthesia options, risks, benefits, and alternatives with patient/parents/legal guardian/POA. Questions invited. The patient/parents/legal guardian/POA seems to understand and agrees to proceed with anesthesia plan. Reviewed the physical assessment, medical history, allergy history and patient home medications list prior to surgery/procedure/anesthetic and documented any changes. Performed airway and anesthesia risk assessments. Anesthesia Type Anesthesia Type: General History Source History Obtained from:: Patient Anesthesia Focused Assessment* Temperature: 98.6 F Pulse Rate: 90 Blood Pressure: 131/80 Respiratory Rate: 16 Pulse Ox: 100 Oxygen Delivery Method: Room Air Airway Assessment Mouth opens: >3 cm Mallampati Score: I Teeth Condition: Caps/Crowns (gold tooth bottom right) Focused Labs Anesthesia Preop lab: CBC WBC 16.5 K/mm3 (4.4-11.0) H 11/20/24 07:44 11/20/24 RBC 4.10 M/mm3 (4.6-6.2) L 11/20/24 07:44 11/20/24 Hgb 13.2 g/dL (13.0-16.5) 11/20/24 07:44 11/20/24 Hct 40.7 % (40-54) 11/20/24 07:44 11/20/24 Plt Count 173 K/mm3 (150-450) 11/20/24 07:44 11/20/24 CHEMISTRY Potassium 3.7 mmol/L (3.5-5.1) 11/20/24 07:44 11/20/24 Sodium 138 mmol/L (136-145) 11/20/24 07:44 11/20/24 Magnesium 2.3 mg/dL (1.6-2.6) 11/20/24 07:44 11/20/24 Phosphorus 1.8 mg/dL (2.5-4.9) L 11/20/24 07:44 11/20/24 BUN 20 mg/dL (7-18) H 11/20/24 07:44 11/20/24 Creatinine 0.66 mg/dL (0.70-1.30) L 11/20/24 07:44 11/20/24 Glucose 82 mg/dL (74-106) 11/20/24 07:44 11/20/24 TSH 6.410 uIU/mL (0.300-4.200) H 12/19/24 16:53 12/19/24 COAG PT 14.6 SECONDS (11.7-14.9) 10/24/24 14:40 10/24/24 Pre-Assessment Diagnosis/Proposed Procedure Planned Operative Procedure(s): LAPAROSCOPIC CHOLESYECTOMY WITH IOC Anesthesia History 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 When Was Last Pacemaker Check QUESTION #4 FULL TEXT: You/Your Family Experience fever (hyperthermia) with Anesthesia Last Oral Intake Last Oral intake: Last Oral Intake NPO since 18:00 12/25/24 06:42 Meds taken in AM with sips of No 12/25/24 06:42 water? 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 Female No 12/19/24 16:08 HX of Motion Sickness No 12/19/24 16:08 HX of N/V After Surgery No 12/19/24 16:08 Non-Smoker Yes 12/19/24 16:08 Duration of Surgery greater Yes 12/19/24 16:08 than 60 minutes Number of Risk Factors 2 12/19/24 16:08 PONV Score Moderate Risk 12/19/24 16:08 Height & Weight Height & Weight: Anesthesia: Height & Weight Height 5 ft 8 in 12/25/24 06:42 Weight: 73 kg 12/25/24 06:42 Body Mass Index (BMI) 24.5 12/25/24 06:42 Respiratory Assessment Respiratory Assessment - township supervisor: Respiratory Tract Infection Hx - township supervisor Hx Respiratory Tract Infection No 12/19/24 16:08 STOP Sleep Apnea STOP Sleep Apnea - township supervisor: STOP Sleep Apnea - township supervisor Hx Hypertension No 12/19/24 16:08 Hx Sleep Apnea No 12/19/24 16:08 CPAP BIPAP Do you snore loudly (louder No 12/19/24 16:08 than talking or can be heard Do you often feel tired/ No 12/19/24 16:08 fatigued/ sleepy during daytime? Has anyone observed you stop No 12/19/24 16:08 breathing during sleep? STOP Results Negative 12/19/24 16:08 QUESTION #5 FULL TEXT : Do you snore loudly (louder than talking or can be heard through closed doors)? 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 Specify any problems Hx of Preganancy in last 3 N/A 12/19/24 16:08 Months Nurse Filling Out Transfusion [email or web address] 12/19/24 16:08 & Questions: Date: 12/19/24 12/19/24 16:08 Time: 16:12 12/19/24 16:08 Patient unable to answer at this time (ie. confused, unrespo /Reproduction History /Reproductive History - township supervisor: /Reproductive Hx- township supervisor Hx Now Gestational Age (in weeks): EDC: Hx Hx Para Hx Section SAB Active Medications Active Medications: Current Medications Generic Name Dose Route Start Last Admin Trade Name Freq PRN Reason Stop Dose Admin Cefotetan Disodium 2 gm/ 100 mls @ 200 mls/hr 12/25/24 07:30 Sodium Chloride IV 12/25/24 07:59 PREOP ONE Sodium Chloride 1,000 mls @ 15 mls/hr 12/25/24 06:15 IV 12/30/24 19:34 .Q48H [facility] Protocol PFSH Medical History (Updated 12/19/24 @ 16:15 by Fadi Stiles) Wears glasses Non-smoker Hypertension Right inguinal hernia Hypothyroid Nocturia Internal hemorrhoids GERD (gastroesophageal reflux disease) Erectile dysfunction Diverticulosis Home Medications ?Medication ?Instructions ?Recorded ?Last Taken ?Type acetaminophen 325 mg tablet 650 mg (2 x 325 mg) PO Q6H PRN PRN 11/20/24 Unknown Rx Pain 1-10 Or Fever #0 tabs geriatric aakodupc-muef-nqnm 1 tab PO QDAY 12/12/24 Unknown History levothyroxine 125 mcg capsule 125 mcg PO QDAY 12/12/24 12/16/24 History Allergy/AdvReac Type Severity Reaction Status Date / Time No Known Allergies Allergy Verified 12/19/24 16:04 Family History Mother Asthma Father Heart disease High cholesterol Surgical History History of ERCP S/P right inguinal hernia repair History of hydrocelectomy Hx of colonoscopy Social History Smoking Status: Never smoker second hand exposure: No alcohol intake: never substance use type: does not use caffeine: Yes what type of physical activity do you participate in: walking, aerobics and weight training frequency: daily Review of Systems (Anesthesia) ROS Narrative System reviewed and no additional complaints, except as documented. Physical Exam Const oriented x3
[2024-12-25] MEDS: Cefotetan 2 GM in 0.9% Normal Saline (100mL MB+) 100 ML IV (07:46)
--- NOTE | 2024-12-25 08:07 | OM_PTH ---
PATIENT: RUSSELL BETH LOC: [facility] – [place] U#:[id number] AGE/SX: 79/M ROOM: RE12/25/[address]: Dr. Mike Malagon MD : 1945 BED: DIS: 12/25/2024 SPEC #: [id number] RECD: 12/25/24 09:53 STATUS: BONILLA REQ #: [id number] FATOU: 12/25/24 08:[address]: Mike Malagon DEPT: SURGICAL PATHOLOGY RECD BY: Ethan Bucio ENTERED: 12/25/24 09:54 SP TYPE: OMENTUM OTHR DR: Dr. Efrain Peters, Tissues: Omentum, NOS Procedures: Frozen Section (charge) Immunohistochemical Stains Surgery Specimen Level IV IHC Stain ADDITIONAL HEADER OPERATION: Exploratory laparoscopy PRE-OP DIAGNOSIS: Change in stool caliber, biliary stricture TISSUE SUBMITTED: Omental biopsy - frozen section FROZEN SECTION DIAGNOSIS Omentum, biopsy: Adenocarcinoma. MS/mr 12/25/2024 MICROSCOPIC DIAGNOSIS Omentum, biopsy: * Adenocarcinoma consistent with metastasis. * IHC positive for CK7, CK19. * IHC negative for CK20, CDX2, KAMI 3, PAX8 - see note. * Additional IHC PENDING, to be reported in an addendum. * Note: The immunophenotype is not specific but could be seen with pancreaticobiliary primary. Correlation with clinical and imaging findings is necessary. MICROSCOPIC DESCRIPTION Slides are reviewed. These tests were developed and their performance characteristics determined by [facility]. They may not have been cleared or approved by the U.S. Food and Drug Administration. The FDA has determined that such clearance or approval is not necessary. The above immunohistochemical/dualISH markers are ordered and reviewed by the Pathologist. GROSS DESCRIPTION Received fresh for frozen section diagnosis labeled with the patient's name is a specimen designated Omental biopsy. The specimen consists of a piece of soft tissue measuring 2 x 1.1 x 0.75cm. The specimen is fully submitted for frozen section in one cassette. Mr 12/26/2024 CPT:[id number] ADDENDUM ADDENDUM ADDENDUM ADDENDUM ADDENDUM ADDENDUM 01/02/2025 12:01 ADDENDUM 01/02/2025 12:01 ADDENDUM 01/02/2025 12:01 ADDENDUM 01/02/2025 12:01 ADDENDUM 01/02/2025 12:01 This addendum is to report the result of IHC stain for NKX3.1 (performed at [facility]): The tumor cells are NEGATIVE for NKX3.1, evidence against a prostate origin of the tumor. All matched controls reacted appropriately.
[2024-12-25] MEDS: Bupiv/Epi 0.25% 30 ML Vial (08:09)
--- NOTE | 2024-12-25 08:31 | PCM.OPRPT ---
Operative Report (Standard) Operative Information Date of Procedure: 12/25/24 Pre-Operative Diagnosis: Cholelithiasis Post-Operative Diagnosis: Carcinomatosis Surgery/Procedure Performed: Exploratory laparoscopy with biopsies photographic equipment inspector: Yes Sterile Technician: Fanta Callahan Tasks completed by case management assistant: Opening and Closing Type of Anesthesia: General/Regional RN Documented Start/Stop Times: Operation Date: 12/25/24 07:30 Case Time Into Pre-Op 12/25/24 06:11 Anesthesia Start 12/25/24 07:30 Into Room 12/25/24 07:30 Out of Pre-Op 12/25/24 07:34 Procedure Start 12/25/24 07:48 Procedure End 12/25/24 08:11 Anesthesia End 12/25/24 08:18 Out of Room 12/25/24 08:18 Into Recovery 12/25/24 08:20 Procedure Start Time: 07:48 Procedure Stop Time: 08:11 Select all DRAINS/GRAFTS/IMPLANTS that apply: None Estimated Blood Loss: 2 Specimen collected: Yes Description of specimen(s) removed: omental biopsy Description of surgery: Patient was brought back to the operating room and general anesthesia was induced. The abdomen was prepped and draped in usual sterile fashion. Midline incision was made superior to the umbilicus and deepened to the fascia which was elevated and incised. Port was placed into the abdomen the abdomen is insufflated 15 mmHg. A subxiphoid port was placed under direct visualization as well as 2 subcostal right upper quadrant 5 mm ports. The omentum was tightly adherent to the gallbladder and there were white plaques under the diaphragm. I was unable to see the gallbladder. I found a nodular area of the omentum that was adherent to the gallbladder and we amputated dissection and sent it for frozen pathology. This frozen pathology revealed a dental carcinoma. The surgery was aborted and the abdomen was allowed to desufflate. The ports were removed. The midline fascia was closed with a akfzoy-qi-yinii 0 Vicryl suture. The incisions were injected with local anesthetic and closed with interrupted 4-0 Monocryl sutures. Steri-Strips and bandages were applied and patient was taken to PACU in stable condition. 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
--- NOTE | 2024-12-25 08:37 | EX.PCM.DISCH ---
Discharge Instructions Procedure Gallbladder Diet Discharge Diet: Light diet - advance as tolerated Activity Discharge Activity: May Not Drive (for 2-3 days or while taking narcotic pain medications.) and - (Do not drive, work heavy equipment or sign legal documents for 24 hours.) May shower in (days): 1 Lifting Restrictions: 20 lbs for 2 weeks Additional Activity Instructions:: Pain medication may cause nausea. You should typically eat light foods as you take your pain medications. Pain medication may also cause constipation. If this is a problem for you, please discuss with your doctor. Dressing / Incision Call your doctor if your incision/area has: Continuous Slow Oozing, Sudden Increased Bleeding, Increased Pain/ Swelling, Increased Redness and Foul Smelling Discharge Call your doctor if you observe: Fever of 101 or Higher Suture Line Care: Avoid Pulling/Pushing and Avoid Pinching/Bending Remove Dressing in: 2 days Additional Dressing/Incision Instructions:: Leave operative bandaids on for 2 days. When you remove dressing, leave Steri-Strips on until your follow-up appointment, or until the Steri-Strips fall off on their own. Follow Up Care Please Follow Up With: Mike Malagon MD When: Please call to schedule 2 week follow up appointment. [phone] Test Results: Test results from this visit will be discussed in further detail at your follow-up appointment, if applicable. Discharge Plan Admission Attending Provider: Mike Malagon Primary Care Provider: Efrain Peters Instructions Print Language: [place] Citizen Discharge Orders/Prescriptions Prescriptions: New oxycodone 5 mg tablet 5 - 10 mg PO Q6H PRN (Reason: pain) 5 Days Qty: 20 0RF No Action levothyroxine 125 mcg capsule 125 mcg PO QDAY geriatric daesgrcj-iesx-ijcp Tablet 1 tab PO QDAY acetaminophen 325 mg Tablet 650 mg PO Q6H PRN PRN (Reason: Pain 1-10 Or Fever) Qty: 0 0RF Referrals / Follow Up: Efrain Peters DO [Primary Care Provider] - Disposition Disposition (needs filled in before D/C Order can be placed): Home, Self Care
[2024-12-25] MEDS: oxyCODONE 5 MG Tablet PO (09:29)
--- NOTE | 2024-12-25 14:10 | PCM.POST.ANE ---
Anesthesia: Postop Eval I Current Vital Signs Temperature: 97.7 F Pulse Rate: 66 Blood Pressure: 112/63 Respiratory Rate: 16 Pulse Ox: 93 Oxygen Delivery Method: Room Air Assessment Airway patent: Yes Spontaneous unlabored respirations: Yes Mental status: Awake nausea: No Vomiting: No Anesthesia Complication: No Fluid Hydration Crystalloid volume administer (ml): 800 Total IV fluid infused: 800 Progress Note Anesthesia document: Postop Eval 1 completed: Yes
--- NOTE | 2024-12-25 17:07 | POSTOPAN2_ITS ---
Anesthesia Postop Eval I Sum Postop Eval Completion status Anesthesia document: Postop Eval 1 completed: Yes Anesthesia Postop Eval I Summary Anesthesia Postop Eval I Summary: Anesthesia Postop Eval I: Assessment Summary Airway patent Yes 12/25/24 14:11 EYE GLASS FRAME [email or web address].[email or web address] Spontaneous unlabored Yes 12/25/24 14:11 EYE GLASS FRAME POLISHER.ACAR respirations Mental status Awake 12/25/24 14:11 EYE GLASS FRAME [email or web address].ACAR nausea No 12/25/24 14:11 EYE GLASS FRAME POLISHER.ACAR Vomiting No 12/25/24 14:11 EYE GLASS FRAME POLISHER.ACAR Anesthesia Postop Eval I: Fluid Summary Crystalloid volume administer 800 12/25/24 14:11 EYE GLASS FRAME POLISHER.ACAR (ml) Colloids volume administered ( ml) Blood Product volume administered (ml) Total IV fluid infused 800 12/25/24 14:11 EYE GLASS FRAME POLISHER.ACAR Anesthesia Postop Eval I: Summary Notes Anesthesia Complication No 12/25/24 14:11 EYE GLASS FRAME POLISHER.ACAR Anesthesia Complication Comment: Post-operative progress note Anesthesia: Postop Eval II Evaluation Mental status: Awake Pain Level: 0 nausea: No Vomiting: No Complications Anesthesia Complication: No
--- NOTE | 2024-12-25 17:07 | PCM.POSTANE2 ---
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 Spontaneous unlabored Yes 12/25/24 14:11 CHECKERING MACHINE ADJUSTER.ACAR respirations Mental status Awake 12/25/24 14:11 CHECKERING MACHINE ADJUSTER.ACAR nausea No 12/25/24 14:11 CHECKERING MACHINE ADJUSTER.ACAR Vomiting No 12/25/24 14:11 CHECKERING MACHINE ADJUSTER.ACAR Anesthesia Postop Eval I: Fluid Summary Crystalloid volume administer 800 12/25/24 14:11 CHECKERING MACHINE ADJUSTER.ACAR (ml) Colloids volume administered ( ml) Blood Product volume administered (ml) Total IV fluid infused 800 12/25/24 14:11 CHECKERING MACHINE ADJUSTER.ACAR Anesthesia Postop Eval I: Summary Notes Anesthesia Complication No 12/25/24 14:11 CHECKERING MACHINE ADJUSTER.ACAR Anesthesia Complication Comment: Post-operative progress note Anesthesia: Postop Eval II Evaluation Mental status: Awake Pain Level: 0 nausea: No Vomiting: No Complications Anesthesia Complication: No
== END 2024-12-25 12:05 | disposition home or self-care (01) ==
LOC: SDC 06:01 → AC 06:02
PROVIDERS: Anesthesiology; PCP Student in an Organized Health Care Education/Training Program; Referring Provider Surgery; Visit Provider Surgery
PROC: (CPT 47610; principal; 2024-12-25 07:10)
DX: C48.1 Malignant neoplasm of specified parts of peritoneum (principal); E03.9 Hypothyroidism, unspecified; Z79.899 Other long term (current) drug therapy
CPT/HCPCS: 49320; 00790; 36415; 84443; 88305; 88331; 88341; 88342; 93005; J2405

== ENCOUNTER 2025-04-24 10:48 | Outpatient (CLI) | payer MEDICARE, SELFPAY ==
[2025-04-24] MEDS: 0.9% NaCl VAD Flush IV (11:08)
[2025-04-24 11:15] VITALS: BP 122/69; PULSE 90; RESP 16; TEMP 36.3; O2SAT 97; BMI 24.0
[2025-04-24 12:02] VITALS: BP 121/66; PULSE 71; RESP 16; TEMP 36.3
[2025-04-24 13:02] VITALS: BP 140/82; PULSE 68; RESP 16; TEMP 36.3; O2SAT 98
[2025-04-24 13:32] VITALS: BP 138/75; PULSE 70; RESP 16; TEMP 36.3; O2SAT 98
== END 2025-04-24 23:59 | disposition home or self-care (01) ==
LOC: MEDOUTP 10:50
PROVIDERS: PCP Student in an Organized Health Care Education/Training Program; Referring Provider Specialist; Visit Provider Specialist
DX: D64.81 Anemia due to antineoplastic chemotherapy (principal); T45.1X5A Adverse effect of antineoplastic and immunosuppressive drugs, initial encounter
CPT/HCPCS: 36430; 86850; 86900; 86901; 86920; P9016; A4216

== ENCOUNTER 2025-06-24 09:35 | Observation (INO) | payer MEDICARE, SELFPAY ==
[2025-06-24] VITALS (13 sets, daily range): BP systolic 82–142; BP diastolic 45–78; PULSE 70–90; RESP 16–18; TEMP 36.7–36.9; O2SAT 94–100; BMI 22.7; BMI 20.6
--- NOTE | 2025-06-24 10:09 | EKG12_ITS ---
Test Reason : Blood Pressure : */* mmHG Vent. Rate : 84 BPM Atrial Rate : 84 BPM P-R Int : 188 ms QRS Dur : 88 ms QT Int : 406 ms P-R-T Axes : 74 6 -16 degrees QTcB Int : 479 ms Normal sinus rhythm Normal ECG Confirmed by Bernardo Arora ([id number]), index editor ARI OLIVA ([id number]) on 06/25/2025 10:20:41 AM Referred By: Confirmed By: Bernardo Arora
--- NOTE | 2025-06-24 10:38 | RAD_ITS ---
PROCEDURE: CHEST 1 VIEW (PORTABLE) 06/24/2025 REASON FOR EXAM: WEAKNESS TECHNIQUE: Frontal view of the chest. COMPARISON: None FINDINGS: Hardware: None Heart: Heart mediastinum are within normal limits. There is atherosclerotic plaque of the aorta. Lungs: Clear. No focal consolidation. No pneumothorax or effusion. Bones: Degenerative changes of both acromioclavicular joints. Other: Normal soft tissues RAD/Chest 1 View (Portable) IMPRESSION: No acute cardiopulmonary disease. Reading Location: [id number]
[2025-06-24 10:58] LABS: Hematocrit 24.8 % (40-54); Hemoglobin 8.6 g/dL (13.0-16.5); Immature Granulocytes Count 0.080 X10^3/uL (0.0-0.0); Mean Corp Hgb Conc 34.7 g/dL (32-36); Mean Corpuscular Volume 99.6 fL (80-94); Mean Platelet Vol. 10.2 fl (6.2-12.0); NRBC Flagged by Analyzer 0 % (0-5); POSITIVE COUNT YES; POSITIVE MORPHOLOGY YES; Platelet Count 71 K/mm3 (150-450); RBC Distribution Width CV 14.3 % (11.6-14.6); RBC Distribution Width SD 51.7 fl (35.1-43.9); Red Blood Count 2.49 M/mm3 (4.6-6.2); White Blood Count 5.6 K/mm3 (4.4-11.0)
[2025-06-24 11:09] LABS: Prothrombin Time (Protime)PT. 15.9 SECONDS (11.7-14.9)
[2025-06-24 11:10] LABS: Partial Thromboplast Time 37.3 Seconds (24.1-36.2)
[2025-06-24 11:18] LABS: Differential Indicated SCAN CRITERIA MET
[2025-06-24 11:20] LABS: AST(SGOT) 44 U/L (<=37); Alanine Aminotransfer ALT/SGPT 17 U/L (<=46); Albumin, Serum 3.3 g/dL (3.4-4.8); Alkaline Phosphatase 220 U/L (40-129); Anion Gap 16 (5-15); BUN 22 mg/dL (4-19); BUN/Creat Ratio 19.5 RATIO (10-20); Bilirubin, Direct 0.42 mg/dL (0.00-0.30); Calcium,Total 8.6 mg/dL (7.6-11.0); Carbon Dioxide 23.5 mmol/L (21.0-32.0); Chloride 94 mmol/L (98-108); Estimated Creatinine Clearance 52.04 ml/min (50-250); Globulin 3.1 g/dL (2.2-4.2); Glucose 59 mg/dL (70-99); Lipase 16 U/L (13-75); Magnesium 1.0 mg/dL (1.5-2.2); Potassium 3.9 mmol/L (3.3-5.1)
--- NOTE | 2025-06-24 11:45 | EDS_ITS ---
HPI History of Present Illness Chief Complaint: General Illness [facility] Medical History Carcinomatosis Wears glasses Non-smoker Hypertension Right inguinal hernia Hypothyroid Nocturia Internal hemorrhoids GERD (gastroesophageal reflux disease) Erectile dysfunction Diverticulosis Home Medications ?Medication ?Instructions ?Recorded ?Last Taken ?Type acetaminophen 325 mg tablet 650 mg (2 x 325 mg) PO Q6H PRN PRN 11/20/24 Unknown Rx Pain 1-10 Or Fever #0 tabs levothyroxine 125 mcg tablet 125 mcg PO DAILY disorder of 06/24/25 06/24/25 History (Levoxyl) thyroid gland Allergy/AdvReac Type Severity Reaction Status Date / Time No Known Allergies Allergy Verified 04/24/25 11:12 Family History Mother Asthma Father Heart disease High cholesterol Surgical History History of ERCP S/P right inguinal hernia repair History of hydrocelectomy Hx of colonoscopy Social History Smoking Status: Never smoker second hand exposure: No alcohol intake: never substance use type: does not use caffeine: Yes what type of physical activity do you participate in: walking, aerobics and weight training frequency: daily EXAM Physical Exam Const Vital Signs: 06/24/25 09:37 06/24/25 09:46 06/24/25 09:46 Temperature 98.0 F 98.0 F Temperature Source Oral Oral Pulse Rate 88 90 Respiratory Rate 16 18 Respiratory Effort Normal Respiratory Pattern Normal Blood Pressure 82/56 L 88/58 L Blood Pressure Mean 64 68 Pulse Ox 98 99 Oxygen Delivery Method Room Air Room Air 06/24/25 10:36 06/24/25 10:46 Temperature 98.1 F Temperature Source Oral Pulse Rate 78 89 Respiratory Rate 16 18 Respiratory Effort Respiratory Pattern Blood Pressure 114/78 102/69 Blood Pressure Mean 90 80 Pulse Ox 98 95 Oxygen Delivery Method Room Air Room Air MDM MDM Lab Data Labs: Laboratory Results - last 24 hr 06/24/25 10:45 WBC 5.6 RBC 2.49 L Hgb 8.6 L Hct 24.8 L MCV 99.6 H MCH 34.5 H MCHC 34.7 RDW Std Deviation 51.7 H RDW Coeff of Meri 14.3 Plt Count 71 L MPV 10.2 Immature Gran % (Auto) 1.400 H Neut % (Auto) 63.0 Lymph % (Auto) 17.1 L [place] % (Auto) 16.4 H Eos % (Auto) 1.6 Baso % (Auto) 0.5 Absolute Neuts (auto) 3.5 Absolute Lymphs (auto) 0.96 Nucleated RBC % 0 Platelet Estimate MOD DEC PT 15.9 H INR 1.2 APTT 37.3 H Sodium 133 Potassium 3.9 Chloride 94 L Carbon Dioxide 23.5 Anion Gap 16 H BUN 22 H Creatinine 1.14 Estim Creat Clear Calc 52.04 Est GFR (MDRD) Non-Af 66 BUN/Creatinine Ratio 19.5 Glucose 59 L Calcium 8.6 Magnesium 1.0 L Total Bilirubin 0.75 Direct Bilirubin 0.42 H AST 44 H ALT 17 Alkaline Phosphatase 220 H Total Protein 6.4 Albumin 3.3 L Globulin 3.1 Lipase 16 Radiography Diagnostic Testing: Clinical Impression(s) from Imaging Studies Chest X-Ray 06/24/25 10:38 IMPRESSION: No acute cardiopulmonary disease. Reading Location: [facility] Discharge Plan Triage Chief Complaint: General Illness ED Provider: Molly Lizarraga Dx/Rx/DC Orders Prescriptions: No Action levothyroxine [Levoxyl] 125 mcg tablet 125 mcg PO DAILY acetaminophen 325 mg Tablet 650 mg PO Q6H PRN PRN (Reason: Pain 1-10 Or Fever) Qty: 0 0RF Primary Care Provider: Efrain Peters Referrals: Efrain Peters DO [Primary Care Provider] - Print Language: Ukrainian
--- NOTE | 2025-06-24 11:45 | EX.ED.DYSGE1 ---
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 Savage. He is presenting from oncology office today for hypotension and weakness. Patient states he has been worsening over the past 7 to 10 days. Notes he has been not able to take much in because he does not have any appetite and food does not taste good. States that he is starting to feel more weak to walk and shaky. He notes that this week he did have a fall but did not injure himself. He was able to reach for the counter to slow his descent. He has been feeling lightheaded. He states he is having bowel movements every 2 days which is typical for him. He states they have been thinner than normal. Denies any blood in stool. Denies any urinary symptoms. Denies any fever or chills. Notes he did have a blood transfusion 4 to 5 weeks ago and had 1 unit of packed red blood cells. Lives at home with his . States he has been feeling more fuzzy and low bit confused lately. No other complaints or concerns reported at this time. [facility] Medical History Carcinomatosis Wears glasses Non-smoker Hypertension Right inguinal hernia Hypothyroid Nocturia Internal hemorrhoids GERD (gastroesophageal reflux disease) Erectile dysfunction Diverticulosis Home Medications ?Medication ?Instructions ?Recorded ?Last Taken ?Type acetaminophen 325 mg tablet 650 mg (2 x 325 mg) PO Q6H PRN PRN 11/20/24 Unknown Rx Pain 1-10 Or Fever #0 tabs levothyroxine 125 mcg tablet 125 mcg PO DAILY disorder of 06/24/25 06/24/25 History (Levoxyl) thyroid gland Allergy/AdvReac Type Severity Reaction Status Date / Time No Known Allergies Allergy Verified 04/24/25 11:12 Family History Mother Asthma Father Heart disease High cholesterol Surgical History History of ERCP S/P right inguinal hernia repair History of hydrocelectomy Hx of colonoscopy Social History Smoking Status: Never smoker second hand exposure: No alcohol intake: never substance use type: does not use caffeine: Yes what type of physical activity do you participate in: walking, aerobics and weight training frequency: daily ROS ROS ED Constitutional Constitutional ED: Reports weight loss and other Details: Shaky ; Denies chills or fever(s) Eyes Eyes: Denies change in vision Cardiovascular Cardiovascular: Denies chest pain Respiratory/Chest Respiratory/Chest: Denies cough Gastrointestinal Gastrointestinal: Reports abdominal pain, nausea and other Details: Reports ongoing right upper quadrant abdominal pain since his cancer diagnosis ; Denies constipation, diarrhea or melena Genitourinary Genitourinary ED: Denies dysuria or urinary frequency Musculoskeletal Musculoskeletal: Denies arthralgias or myalgias Integumentary Denies rash Neurologic Neurologic: Reports weakness; Denies paresthesias Hematologic/Lymphatic Hematologic/Lymphatic: Denies easy bleeding or easy bruising EXAM Physical Exam Const Vital Signs: 06/24/25 09:37 06/24/25 09:46 06/24/25 09:46 Temperature 98.0 F 98.0 F Temperature Source Oral Oral Pulse Rate 88 90 Pulse Rate [Lying] Pulse Rate [Standing (for 1 minute prior to obtaining)] Respiratory Rate 16 18 Respiratory Effort Normal Respiratory Pattern Normal Blood Pressure 82/56 L 88/58 L Blood Pressure [Lying] Blood Pressure [Sitting (for 1 minute prior to obtaining)] Blood Pressure [Standing (for 1 minute prior to obtaining)] Blood Pressure Mean 64 68 Blood Pressure Mean [Lying] Blood Pressure Mean [Sitting (for 1 minute prior to obtaining)] Blood Pressure Mean [Standing (for 1 minute prior to obtaining)] Pulse Ox 98 99 Oxygen Delivery Method Room Air Room Air 06/24/25 10:36 06/24/25 10:46 06/24/25 12:00 Temperature 98.1 F 98.4 F Temperature Source Oral Temporal Pulse Rate 78 89 72 Pulse Rate [Lying] Pulse Rate [Standing (for 1 minute prior to obtaining)] Respiratory Rate 16 18 16 Respiratory Effort Respiratory Pattern Blood Pressure 114/78 102/69 142/61 H Blood Pressure [Lying] Blood Pressure [Sitting (for 1 minute prior to obtaining)] Blood Pressure [Standing (for 1 minute prior to obtaining)] Blood Pressure Mean 90 80 88 Blood Pressure Mean [Lying] Blood Pressure Mean [Sitting (for 1 minute prior to obtaining)] Blood Pressure Mean [Standing (for 1 minute prior to obtaining)] Pulse Ox 98 95 97 Oxygen Delivery Method Room Air Room Air Room Air 06/24/25 13:00 06/24/25 14:00 06/24/25 14:15 Temperature Temperature Source Pulse Rate 82 78 Pulse Rate [Lying] 70 Pulse Rate [Standing (for 1 minute prior to obtaining)] 82 Respiratory Rate 18 16 Respiratory Effort Respiratory Pattern Blood Pressure 100/60 111/64 Blood Pressure [Lying] 93/60 Blood Pressure [Sitting (for 1 minute prior to obtaining)] 100/53 L Blood Pressure [Standing (for 1 minute prior to obtaining)] 118/67 Blood Pressure Mean 73 79 Blood Pressure Mean [Lying] 71 Blood Pressure Mean [Sitting (for 1 minute prior to obtaining)] 68 Blood Pressure Mean [Standing (for 1 minute prior to obtaining)] 84 Pulse Ox 94 98 Oxygen Delivery Method Room Air 06/24/25 15:00 Temperature Temperature Source Pulse Rate 75 Pulse Rate [Lying] Pulse Rate [Standing (for 1 minute prior to obtaining)] Respiratory Rate 18 Respiratory Effort Respiratory Pattern Blood Pressure 121/65 H Blood Pressure [Lying] Blood Pressure [Sitting (for 1 minute prior to obtaining)] Blood Pressure [Standing (for 1 minute prior to obtaining)] Blood Pressure Mean 83 Blood Pressure Mean [Lying] Blood Pressure Mean [Sitting (for 1 minute prior to obtaining)] Blood Pressure Mean [Standing (for 1 minute prior to obtaining)] Pulse Ox 95 Oxygen Delivery Method Positive well developed Constitutional Narrative: Chronically ill-appearing General Appearance ED: well developed and NAD; Negative for pallor HEENT Reports dry mucous membranes Negative for trauma Mouth ED: Yes dry mucous membranes Mouth: dry mucous membranes Eyes PERRL and EOMs intact bilaterally General Eye ED: Negative for scleral icterus Neck supple and no JVD Chest Wall inspection of chest normal and palpation of chest normal Resp normal respiratory effort and clear to auscultation bilaterally Cardio regular rate and regular rhythm Cardio Narrative: Diastolic murmur present, appreciated over the left upper sternal border GI normal to inspection, nondistended, normoactive bowel sounds GI Narrative: Chaperoned rectal exam?no hemorrhoids appreciated. Brown stool. It is fecal occult positive. Palpation: soft and tender RUQ; Negative for mass or rebound tenderness present Back/Spine no CVA tenderness Extremity normal to inspection Neuro oriented x3 Sensorium / Orientation: alert Motor Exam: general weakness Psych mental status grossly normal Skin no rashes or lesions noted and no wounds General Skin Exam: Negative for jaundice or pallor MDM MDM MDM Narrative Medical decision making narrative: Patient stated for hypotension and generalized weakness. He appears nontoxic but chronically ill and weak appearing. He initially is hypotensive upon arrival however is fluid responsive in the emergency room. Workup looking for cause of hypotension including hypovolemia, poor p.o. intake, electrolyte derangement, TANYA, symptomatic anemia and infection is obtained.No obvious signs of hemorrhage on physical exam or HPI. Patient does have a hemoglobin that is low at 8.6. Hemoglobin on 06/04/2025 was 9.3 so patient is near his baseline. Patient has very low magnesium of 1.0. Start on magnesium replacement in the emergency room. He has a normal creatinine however it is above his baseline, and elevated anion gap of 16 and an elevated BUN of 22. Chloride is also low at 94. Lactate is normal at 1.5. He has stable transaminitis with AST of 44 and alkaline phosphatase is 220 consistent with his known history of cholangiocarcinoma. Patient does have elevated ketones in his urine consistent with dehydration. There is no obvious source of infection. I spoke with the patient's oncologist who states he really wanted to make sure the patient did not have an underlying infection causing his hypotension or other more severe process. Spoke with patient and given his weakness even though he is feeling improved with IV fluids he would feel more comfortable staying in the hospital. Will admit for observation and further hydration. Patient agreeable with plan of care. Patient blood pressure remained stable and I think stable for MedSurg at this time. History & Record Review Additional record(s) reviewed:: Prior outpatient record and Prior labs (CBC) Lab Data Attestation: I reviewed the patient's lab results. Labs: Laboratory Results - last 24 hr 06/24/25 06/24/25 10:45 12:26 WBC 5.6 RBC 2.49 L Hgb 8.6 L Hct 24.8 L MCV 99.6 H MCH 34.5 H MCHC 34.7 RDW Std Deviation 51.7 H RDW Coeff of Meri 14.3 Plt Count 71 L MPV 10.2 Immature Gran % (Auto) 1.400 H Neut % (Auto) 63.0 Lymph % (Auto) 17.1 L [place] % (Auto) 16.4 H Eos % (Auto) 1.6 Baso % (Auto) 0.5 Absolute Neuts (auto) 3.5 Absolute Lymphs (auto) 0.96 Nucleated RBC % 0 Platelet Estimate MOD DEC PT 15.9 H INR 1.2 APTT 37.3 H Sodium 133 Potassium 3.9 Chloride 94 L Carbon Dioxide 23.5 Anion Gap 16 H BUN 22 H Creatinine 1.14 Estim Creat Clear Calc 52.04 Est GFR (MDRD) Non-Af 66 BUN/Creatinine Ratio 19.5 Glucose 59 L Lactic Acid 1.5 Calcium 8.6 Magnesium 1.0 L Total Bilirubin 0.75 Direct Bilirubin 0.42 H AST 44 H ALT 17 Alkaline Phosphatase 220 H Total Protein 6.4 Albumin 3.3 L Globulin 3.1 Lipase 16 Urine Color Yellow Urine Clarity Clear Urine pH 6.0 Ur Specific [place] 1.015 Urine Protein 30 H Urine Glucose (UA) Normal Urine Ketones 150 A* Urine Occult Blood 10 H Urine Nitrite Negative Urine Bilirubin Negative Urine Urobilinogen 1 H Ur Leukocyte Esterase Negative Urine RBC 0 SEEN Urine WBC 0 SEEN Ur Squamous Epith Cells 0 SEEN Urine Bacteria 0 SEEN Hyaline Casts 0-5 SEEN Urine Mucus 0 SEEN Radiography Chest X-Ray - ED: 1 View, Read by ED Physician, Read by Radiologist and No Acute Disease Diagnostic Testing: Clinical Impression(s) from Imaging Studies Chest X-Ray 06/24/25 10:38 IMPRESSION: No acute cardiopulmonary disease. Reading Location: [facility] Rhythm Strip Rhythm Strip: Sinus Rhythm Rate: 84 Ectopy: None EKG Initial EKG: Attestation: I personally reviewed and interpreted this EKG as follows: Interpretation: Sinus Rhythm Comments: Normal sinus rhythm at a rate of 84 bpm Normal axis Normal intervals Normal ST segments Compared to prior EKG on, no acute changes Management Discussion w/another healthcare provider: Hospitalist and [employer] Discharge Plan Triage Chief Complaint: General Illness ED Provider: Molly Lizarraga Dx/Rx/DC Orders Clinical Impression: Hypovolemia, Acute hypotension, Near syncope, Hypomagnesemia, Hypochloremia, Anorexia, Cholangiocarcinoma, Anemia, Occult blood positive stool Prescriptions: No Action levothyroxine [Levoxyl] 125 mcg tablet 125 mcg PO DAILY acetaminophen 325 mg Tablet 650 mg PO Q6H PRN PRN (Reason: Pain 1-10 Or Fever) Qty: 0 0RF Primary Care Provider: Efrain Peters Referrals: Efrain Peters DO [Primary Care Provider] - Print Language: Yakut Disposition Disposition: Acute Care Hospital [facility]
[2025-06-24] MEDS: 0.9% Normal Saline (1000mL) 1,000 ML 1000 ML IV (12:16)
[2025-06-24 12:30] LABS: Mucous, Urine 0 SEEN /hpf (<or=2+); Red Blood Cells-Urine 0 SEEN /hpf (0-5); Squamous Epithelial Cells - UA 0 SEEN /hpf (0-5)
[2025-06-24 12:41] LABS: Color, Urine Yellow (Yellow); Glucose, Dipstick Normal (Normal); Leukocyte Esterase-Dipstick Negative /ul (Negative); Nitrite-Dipstick Negative (Negative); Occult Blood-Urine 10 /ul (Negative); Protein-Dipstick 30 mg/dl (Negative); Specific Gravity, Urine 1.015 (1.002-1.030); Urine Bilirubin Dipstick Negative (Negative)
[2025-06-24 12:59] LABS: Ketone-Dipstick 150 mg/dl (Negative)
[2025-06-24] MEDS: Magnesium Sulfate 2 GM in Dextrose 5%-Water (100mL Bag) 100 ML IV (13:21)
--- NOTE | 2025-06-24 15:23 | PCM.HP.STD ---
HPI - General General Date of Admission: 06/24/25 Date of Service: 06/24/25 Chief Complaint: Weakness and hypotension HPI Narrative RUSSELL BETH, is a 79 M who presented today from the oncology office for weakness and hypotension. 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 Lemons. I reviewed Dr. Lemons's office note from 05/27 in [facility]. Patient initially developed symptoms of pain, pale stool and jaundice back in August 2024. 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 He was initiated on durvalumab/gemcitabine/cisplatin on January 15. Liver MRI around that time showed locally advanced disease. He more recently had an ERCP done on 05/16 for stent change (had stent placed prior to attempted lap naresh), but the stent had migrated and could not be reached. Dr. Lemons noted that the surgical team had discussed eventual cholecystectomy with the patient, but he suspected this would not be able to be done due to the patient's locally advanced cancer. Plan was to continue chemotherapy per NCCN guidelines. Patient presented to the office today and was noted to be hypotensive to the 70s systolic and weaker than previous, so he was sent to the ED for further evaluation. In the ED, patient hypertensive to the 80s over 50s but otherwise was in normal sinus rhythm and stable on room air at rest. He was given IV fluids with improvement in his blood pressure to the 110s systolic. Labs notable for creatinine 1.14 (baseline 0.6-0.7), magnesium 1.0, hemoglobin 8.6 (recent baseline around 9). Chest x-ray was unremarkable. ED physician discussed with the patient who wished to stay overnight for further IV fluid and electrolyte resuscitation as needed. Hospitalist was then contacted for admission. I saw the patient at bedside in the ED. Patient was fatigued and fairly weak appearing but otherwise was sitting back comfortably in bed and answering questions appropriately. Notes that he has lost about 40 pounds over the past 2 months. However, he attributes this to poor appetite due to change in taste from his chemotherapy regimen. He notably asked me about the possibility of cholecystectomy and stated that Dr. Lemons had told him that his cancer was improving significantly on his most recent imaging testing. Noted that his muscles in his legs feel weak and he has not been able to do much at home recently. He otherwise denies any acute pain or discomfort. Will be admitted for further management. [facility] Medical History Carcinomatosis Wears glasses Non-smoker Hypertension Right inguinal hernia Hypothyroid Nocturia Internal hemorrhoids GERD (gastroesophageal reflux disease) Erectile dysfunction Diverticulosis Home Medications ?Medication ?Instructions ?Recorded ?Last Taken ?Type acetaminophen 325 mg tablet 650 mg (2 x 325 mg) PO Q6H PRN PRN 11/20/24 Unknown Rx Pain 1-10 Or Fever #0 tabs levothyroxine 125 mcg tablet 125 mcg PO DAILY disorder of 06/24/25 06/24/25 History (Levoxyl) thyroid gland Allergy/AdvReac Type Severity Reaction Status Date / Time No Known Allergies Allergy Verified 04/24/25 11:12 Family History Mother Asthma Father Heart disease High cholesterol Surgical History History of ERCP S/P right inguinal hernia repair History of hydrocelectomy Hx of colonoscopy Social History Smoking Status: Never smoker second hand exposure: No alcohol intake: never substance use type: does not use caffeine: Yes what type of physical activity do you participate in: walking, aerobics and weight training frequency: daily ROS Constitutional Constitutional: Reports fatigue and weakness; Denies chills or fever(s) Eyes Eyes: Denies change in vision Cardiovascular Cardiovascular: Denies chest pain Respiratory/Chest Respiratory/Chest: Denies shortness of breath at rest Gastrointestinal Gastrointestinal: Denies abdominal pain, constipation, diarrhea, nausea or vomiting Musculoskeletal Musculoskeletal: Denies arthralgias or myalgias Neurologic Neurologic: Denies dizziness, focal weakness or headache(s) Vital Signs Vital Signs Vital Signs: 06/24/25 09:37 06/24/25 09:46 06/24/25 09:46 Temperature 98.0 F 98.0 F Temperature Source Oral Oral Pulse Rate 88 90 Pulse Rate [Lying] Pulse Rate [Standing (for 1 minute prior to obtaining)] Respiratory Rate 16 18 Respiratory Effort Normal Respiratory Pattern Normal Blood Pressure 82/56 L 88/58 L Blood Pressure [Lying] Blood Pressure [Sitting (for 1 minute prior to obtaining)] Blood Pressure [Standing (for 1 minute prior to obtaining)] Blood Pressure Mean 64 68 Blood Pressure Mean [Lying] Blood Pressure Mean [Sitting (for 1 minute prior to obtaining)] Blood Pressure Mean [Standing (for 1 minute prior to obtaining)] Pulse Ox 98 99 Oxygen Delivery Method Room Air Room Air 06/24/25 10:36 06/24/25 10:46 06/24/25 12:00 Temperature 98.1 F 98.4 F Temperature Source Oral Temporal Pulse Rate 78 89 72 Pulse Rate [Lying] Pulse Rate [Standing (for 1 minute prior to obtaining)] Respiratory Rate 16 18 16 Respiratory Effort Respiratory Pattern Blood Pressure 114/78 102/69 142/61 H Blood Pressure [Lying] Blood Pressure [Sitting (for 1 minute prior to obtaining)] Blood Pressure [Standing (for 1 minute prior to obtaining)] Blood Pressure Mean 90 80 88 Blood Pressure Mean [Lying] Blood Pressure Mean [Sitting (for 1 minute prior to obtaining)] Blood Pressure Mean [Standing (for 1 minute prior to obtaining)] Pulse Ox 98 95 97 Oxygen Delivery Method Room Air Room Air Room Air 06/24/25 13:00 06/24/25 14:00 06/24/25 14:15 Temperature Temperature Source Pulse Rate 82 78 Pulse Rate [Lying] 70 Pulse Rate [Standing (for 1 minute prior to obtaining)] 82 Respiratory Rate 18 16 Respiratory Effort Respiratory Pattern Blood Pressure 100/60 111/64 Blood Pressure [Lying] 93/60 Blood Pressure [Sitting (for 1 minute prior to obtaining)] 100/53 L Blood Pressure [Standing (for 1 minute prior to obtaining)] 118/67 Blood Pressure Mean 73 79 Blood Pressure Mean [Lying] 71 Blood Pressure Mean [Sitting (for 1 minute prior to obtaining)] 68 Blood Pressure Mean [Standing (for 1 minute prior to obtaining)] 84 Pulse Ox 94 98 Oxygen Delivery Method Room Air 06/24/25 15:00 Temperature Temperature Source Pulse Rate 75 Pulse Rate [Lying] Pulse Rate [Standing (for 1 minute prior to obtaining)] Respiratory Rate 18 Respiratory Effort Respiratory Pattern Blood Pressure 121/65 H Blood Pressure [Lying] Blood Pressure [Sitting (for 1 minute prior to obtaining)] Blood Pressure [Standing (for 1 minute prior to obtaining)] Blood Pressure Mean 83 Blood Pressure Mean [Lying] Blood Pressure Mean [Sitting (for 1 minute prior to obtaining)] Blood Pressure Mean [Standing (for 1 minute prior to obtaining)] Pulse Ox 95 Oxygen Delivery Method Weight Weight: 67.8 kg Body Mass Index (BMI) 22.7 Physical Exam Const alert, oriented x3, no apparent distress and average body habitus Constitutional Narrative: Elderly male, fatigued and fairly weak appearing, otherwise sitting back fairly comfortably in bed, conversing normally, in no acute distress. General Appearance: cooperative and comfortable HEENT normocephalic, head/scalp atraumatic, hearing grossly normal bilaterally, nasal mucous membranes and turbinates normal and moist oral mucous membranes Eyes PERRL, EOMs intact bilaterally and conjunctivae normal Neck full ROM Chest inspection of chest normal Resp normal respiratory effort, normal air movement, no use of accessory muscles and clear to auscultation bilaterally Cardio regular rate, regular rhythm, no murmurs and peripheral pulses 2+ throughout GI normal to inspection, nondistended, normoactive bowel sounds, soft to palpation, non-tender and non-distended Back/Spine normal ROM Extremity normal to inspection, full ROM and no pedal edema Skin no rashes or lesions noted Psych mental status grossly normal Results Lab / Micro Data 06/24/25 10:45 06/24/25 10:45 Labs: Laboratory Results - last 24 hr 06/24/25 10:45: WBC 5.6, RBC 2.49 L, Hgb 8.6 L, Hct 24.8 L, MCV 99.6 H, MCH 34.5 H, MCHC 34.7, RDW Std Deviation 51.7 H, RDW Coeff of Meri 14.3, Plt Count 71 L, MPV 10.2, Immature Gran % (Auto) 1.400 H, Neut % (Auto) 63.0, Lymph % (Auto) 17.1 L, Wells % (Auto) 16.4 H, Eos % (Auto) 1.6, Baso % (Auto) 0.5, Absolute Neuts (auto) 3.5, Absolute Lymphs (auto) 0.96, Nucleated RBC % 0, Platelet Estimate MOD DEC, PT 15.9 H, INR 1.2, APTT 37.3 H, Sodium 133, Potassium 3.9, Chloride 94 L, Carbon Dioxide 23.5, Anion Gap 16 H, BUN 22 H, Creatinine 1.14, Estim Creat Clear Calc 52.04, Est GFR (MDRD) Non-Af 66, BUN/Creatinine Ratio 19.5, Glucose 59 L, Lactic Acid 1.5, Calcium 8.6, Magnesium 1.0 L, Total Bilirubin 0.75, Direct Bilirubin 0.42 H, AST 44 H, ALT 17, Alkaline Phosphatase 220 H, Total Protein 6.4, Albumin 3.3 L, Globulin 3.1, Lipase 16 06/24/25 12:26: Urine Color Yellow, Urine Clarity Clear, Urine pH 6.0, Ur Specific [place] 1.015, Urine Protein 30 H, Urine Glucose (UA) Normal, Urine Ketones 150 A*, Urine Occult Blood 10 H, Urine Nitrite Negative, Urine Bilirubin Negative, Urine Urobilinogen 1 H, Ur Leukocyte Esterase Negative, Urine RBC 0 SEEN, Urine WBC 0 SEEN, Ur Squamous Epith Cells 0 SEEN, Urine Bacteria 0 SEEN, Hyaline Casts 0-5 SEEN, Urine Mucus 0 SEEN Micro: Microbiology 06/24/25 13:23 Stool Stool Occult Blood (LISETTE) - Final Occult Blood Positive Imaging Radiology Impression Chest X-Ray 06/24/25 10:38 IMPRESSION: No acute cardiopulmonary disease. Reading Location: [facility] Assessment & Plan Assessment/Plan (1) Adult failure to thrive: PLAN: Plan Patient is a 79-year-old male who presented to [facility] ED on 06/24/2025 from his oncology office with weakness and hypotension. 1. Adult failure to thrive in setting of cholangiocarcinoma ? Admit under observation status to [facility]. PT/OT/case management consulted. Nutrition consulted. Follows with Dr. Lemons with oncology, see HPI for further details. 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 Has been on chemotherapy since January. Has now lost about 40 pounds over the past 2 months. Notes he has not been eating or drinking much at all and has steadily become weaker. Lives at home with his and has had difficulty getting out of his chair this past week. Labs and low blood pressure on admit consistent with dehydration as below. Unfortunately patient seems to have poor insight into his condition; believes the cancer is improving and is asking about when his gallbladder can be removed to help take out the cancer. Will likely be okay for home with home health care on discharge but given his worsening functional status, suspect he may not be an ideal chemotherapy candidate in the near future and may benefit from establishing with palliative care. 2. Mild TANYA with dehydration and hypotension, hypomagnesemia ? Creatinine 1.14 on admit, baseline around 0.6-0.7. Hypotensive to the 80s systolic on admit. Magnesium 1.0. Hypotension improved with IV fluid resuscitation. IV magnesium supplementation given in the ED. Follow-up a.m. labs and monitor urine output. 3. Hypothyroidism ? Continue home Synthroid. 4. Anemia and thrombocytopenia ? Hemoglobin 8.6, platelet count 71 on admit. [facility] the last few months and hemoglobin has been around 9 and platelet count around 70-90. Oncology attributed this to his chemotherapy. Iron studies done in the ED with ferritin 2355, consistent with anemia of chronic disease. No inpatient needs, continue close outpatient follow-up. DVT prophylaxis: Lovenox CODE STATUS: Full code, verified Expected disposition: TBD Total clinical time spent by myself addressing the patient's medical issues, reviewing all the data, and collaborating with patient's care team: 78 minutes. Charges/Coding Visit Charges Inpatient E&M: 43189 Init Hosp L3
[2025-06-24 16:39] LABS: Iron 110 ug/dL (65-175); Iron Binding Capacity,Unsat 58 ug/dL (228-428)
[2025-06-24 18:06] LABS: Ferritin 2355 ng/mL (37-417); Vitamin B12 > 4000 pg/mL (180-914)
[2025-06-24 18:28] LABS: Iron Binding Capacity,Total 168 ug/dL (250-450)
--- NOTE | 2025-06-24 22:46 | PN.HOSP_ITS ---
Hospitalist Note Nrsg noted BP at 2200 right arm-72/42, left arm-85/45. Assessed pt, he reports being winded with minimal exertion but cannot discern if it's from palpitations or general weakness. He states that he has occasional dizziness upon standing. He feels that he is not drinking enough water, states [facility] water has too many chemicals in it, it just tastes bad. I'd prefer bottled water. LSC throughout. No peripheral edema. 0.9%NS 1ltr over 4hrs ordered. He is agreeable to IVF. Will reassess in AM.
[2025-06-24] MEDS: 0.9% Saline Lock 10 ML Syringe IV ×2 (23:15→23:53)
[2025-06-24] MEDS: 0.9% Normal Saline (1000mL) 1,000 ML 250 ML IV (23:15)
[2025-06-25 03:16] VITALS: BP 116/89; PULSE 77; RESP 16; TEMP 36.6; O2SAT 97
[2025-06-25 04:50] LABS: Hematocrit 23.9 % (40-54); Hemoglobin 8.2 g/dL (13.0-16.5); Mean Corp Hgb Conc 34.3 g/dL (32-36); Mean Corpuscular Volume 99.6 fL (80-94); Mean Platelet Vol. 10.0 fl (6.2-12.0); POSITIVE COUNT YES; Platelet Count 84 K/mm3 (150-450); RBC Distribution Width CV 14.1 % (11.6-14.6); RBC Distribution Width SD 50.0 fl (35.1-43.9); Red Blood Count 2.40 M/mm3 (4.6-6.2); White Blood Count 5.8 K/mm3 (4.4-11.0)
[2025-06-25 04:54] LABS: Scan Indicated on CBC? Y/N NO
[2025-06-25 05:33] LABS: AST(SGOT) 41 U/L (<=37); Alanine Aminotransfer ALT/SGPT 15 U/L (<=46); Albumin, Serum 3.0 g/dL (3.4-4.8); Alkaline Phosphatase 196 U/L (40-129); Anion Gap 16 (5-15); BUN 18 mg/dL (4-19); BUN/Creat Ratio 16.6 RATIO (10-20); Calcium,Total 7.9 mg/dL (7.6-11.0); Carbon Dioxide 21.4 mmol/L (21.0-32.0); Chloride 98 mmol/L (98-108); Estimated Creatinine Clearance 51.77 ml/min (50-250); Globulin 2.5 g/dL (2.2-4.2); Glucose 39 mg/dL (70-99); Potassium 3.4 mmol/L (3.3-5.1)
--- NOTE | 2025-06-25 06:36 | NURSING ---
labs with low glucose this am, pt denies any symptoms, ate snack and now wnl
--- NOTE | 2025-06-25 07:59 | DCINST_ITS ---
Discharge Instructions DC O2, CPAP, BIPAP needs Home O2 Discharge instructions: No Dressing / Incision Discharge Activity: Return to Normal Activity Dressing / Incision Call your doctor if you observe: Fever of 101 or Higher, Shortness of breath, Dizziness, Fainting spells, Swelling in the ankles, Chest pain and Increased palpitations (irregular heartbeat) Follow Up Care Test Results: Test results from this visit will be discussed in further detail at your follow- up appointment, if applicable. Discharge Plan Admission Admit Date/Time: 06/24/25 15:23 Attending Provider: Zaki Mosquera Primary Care Provider: Efrain Peters Consulting Providers: Bandar Salmeron Discharge Orders/Prescriptions Prescriptions: Continued levothyroxine [Levoxyl] 125 mcg tablet 125 mcg PO DAILY acetaminophen 325 mg Tablet 650 mg PO Q6H PRN PRN (Reason: Pain 1-10 Or Fever) Qty: 0 0RF Referrals / Follow Up: Efrain Peters DO [Primary Care Provider] - Within 1 Week Disposition Disposition (needs filled in before D/C Order can be placed): Home, Self Care
[2025-06-25 08:16] VITALS: BP 94/58; PULSE 90; RESP 16; TEMP 36.7; O2SAT 98
[2025-06-25] MEDS: 0.9% Normal Saline (500mL Bag) 500 ML 999 ML IV (08:50)
[2025-06-25] MEDS: 0.9% Saline Lock 10 ML Syringe IV (08:51)
--- NOTE | 2025-06-25 09:22 | CASEMGMT ---
HIMANSHU HOOPER into pt room, pt sitting up in chair. Discussed dc planning with pt. Pt states his only problem at home is his appetite and that the chemo causes food not to taste good. Pt states he needs to keep his weight up and stay strong. Discussed therapy with pt, pt denies need for this. Pt states he thinks HIMANSHU HOOPER is referring to his as she has cancer and has therapy. Made pt aware that HIMANSHU HOOPER is speaking regarding him to see if he needs any services at home or in the community. Pt politely declined. He states he will follow up with his oncologist and that the hospitalist gave him ideas for his appetite. Pt denies any further needs. DC order placed. Pt states he feels safe to return home.
--- NOTE | 2025-06-25 09:29 | PHA.DC.MR.R ---
Pharmacy [place] Med Reconciliation Pharmacy Service has performed discharge medication reconciliation for this patient. The patient's discharge medication list was reviewed for discrepancies and discrepancies were resolved. Medications at Discharge Home Medications acetaminophen 325 mg tablet 650 mg (2 x 325 mg) PO Q6H PRN PRN Pain 1-10 Or Fever #0 tabs 11/20/24 levothyroxine 125 mcg tablet (Levoxyl) 125 mcg PO DAILY disorder of thyroid gland 06/24/25
--- NOTE | 2025-06-25 11:48 | PCM.DC.SUM ---
Providers Date of Admission: 06/24/25 Primary Care Physician: Dr. Efrain Peters, Reason For Visit: WEAKNESS W/ DEHYDRATION, SETTING OF CHOLANGIOCARCI Diagnosis Discharge Diagnosis (1) Adult failure to thrive: Status: Acute Code(s): R62.7 - Adult failure to thrive Medications at Discharge Home Medications acetaminophen 325 mg tablet 650 mg (2 x 325 mg) PO Q6H PRN PRN Pain 1-10 Or Fever #0 tabs 11/20/24 levothyroxine 125 mcg tablet (Levoxyl) 125 mcg PO DAILY disorder of thyroid gland 06/24/25 Hospital Course Operations None Procedures None Summary of Care Provided Minutes Spent on Discharge: 32 Hospital Course: Per HPI: RUSSELL BETH, is a 79 M who presented today from the oncology office for weakness and hypotension. 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 Lemons. I reviewed Dr. Lemons's office note from 05/27 in [facility]. Patient initially developed symptoms of pain, pale stool and jaundice back in August 2024. 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 He was initiated on durvalumab/gemcitabine/cisplatin on January 15. Liver MRI around that time showed locally advanced disease. He more recently had an ERCP done on 05/16 for stent change (had stent placed prior to attempted lap naresh), but the stent had migrated and could not be reached. Dr. Lemons noted that the surgical team had discussed eventual cholecystectomy with the patient, but he suspected this would not be able to be done due to the patient's locally advanced cancer. Plan was to continue chemotherapy per NCCN guidelines. Patient presented to the office today and was noted to be hypotensive to the 70s systolic and weaker than previous, so he was sent to the ED for further evaluation. In the ED, patient hypertensive to the 80s over 50s but otherwise was in normal sinus rhythm and stable on room air at rest. He was given IV fluids with improvement in his blood pressure to the 110s systolic. Labs notable for creatinine 1.14 (baseline 0.6-0.7), magnesium 1.0, hemoglobin 8.6 (recent baseline around 9). Chest x-ray was unremarkable. ED physician discussed with the patient who wished to stay overnight for further IV fluid and electrolyte resuscitation as needed. Hospitalist was then contacted for admission. I saw the patient at bedside in the ED. Patient was fatigued and fairly weak appearing but otherwise was sitting back comfortably in bed and answering questions appropriately. Notes that he has lost about 40 pounds over the past 2 months. However, he attributes this to poor appetite due to change in taste from his chemotherapy regimen. He notably asked me about the possibility of cholecystectomy and stated that Dr. Lemons had told him that his cancer was improving significantly on his most recent imaging testing. Noted that his muscles in his legs feel weak and he has not been able to do much at home recently. He otherwise denies any acute pain or discomfort. Will be admitted for further management. Hospital Course: 1. Adult failure to thrive with a mild creatinine elevation due to dehydration in the setting of cholangiocarcinoma?79-year-old male presented to the hospital with weakness and failure to thrive. He is undergoing chemotherapy for cholangiocarcinoma, and he states that it is improving. He has been losing weight and not eating very well because food does not taste good and he has had difficulty maintaining hydration because he does not like the taste of tap water. He had some mild electrolyte derangements with magnesium of 1 yesterday that was replaced in the emergency room and his potassium was normal, and his renal function improved today from 1.14 down to 1.07, which is his baseline. This did not meet the standard for an TANYA as his baseline creatinine is around 0.8. He received some extra fluid today but was requesting to be discharged as he has a doctors appointment today. He expressed understanding of the risks and benefits of going home and would still like to go home today. I do recommend outpatient follow-up with his primary care doctor to monitor his renal function as well as his electrolytes. 2. Anemia and thrombocytopenia?his iron studies are unremarkable and indicate an anemia of chronic disease and his B12 is elevated. This is being monitored as an outpatient by his oncologist feels that this is related to his chemotherapy. Recommend continued monitoring. 3. Hypothyroidism is chronic medical condition which complicates his care. His home medications were continued where appropriate. Physical Exam Narrative General: Alert, Oriented x3, Cooperative, No apparent distress HEENT: Atraumatic, PERRLA, EOMI, Normocephalic Oral: Moist Mucosa Neck: Supple, No JVD Lungs: Clear to auscultation, Normal air movement, No rhonchi, No wheeze, No rales Cardiovascular: Regular rate, Regular Rhythm, Normal S1, Normal S2, No murmurs Abdomen: Soft, Non Tender, Non-Distended, No Hepato-splenomegaly Extremities: No edema, Capillary Refill Less than 3 Seconds Skin: No rashes, No breakdown Musculoskeletal: No Tenderness to Palpation of Joints or Extremities Neurological: No focal neurological deficits, moves all extremities, sensation intact Psych/Mental Status: Normal Affect, Appropriate Weight / BMI Weight Weight: 139 lb 9 oz Body Mass Index (BMI) 20.6 ABG / Lab / Microbiology Data 06/25/25 04:35 06/25/25 04:04 Laboratory: Laboratory Results - last 24 hr 06/24/25 10:45: Lactic Acid 1.5, Phosphorus 2.8, Iron 110, TIBC 168 L, Iron Saturation 65.0 H, Unsaturated IBC 58 L, Ferritin 2355 H, Vitamin B12 > 4000 H 06/24/25 12:26: Urine Color Yellow, Urine Clarity Clear, Urine pH 6.0, Ur Specific [place] 1.015, Urine Protein 30 H, Urine Glucose (UA) Normal, Urine Ketones 150 A*, Urine Occult Blood 10 H, Urine Nitrite Negative, Urine Bilirubin Negative, Urine Urobilinogen 1 H, Ur Leukocyte Esterase Negative, Urine RBC 0 SEEN, Urine WBC 0 SEEN, Ur Squamous Epith Cells 0 SEEN, Urine Bacteria 0 SEEN, Hyaline Casts 0-5 SEEN, Urine Mucus 0 SEEN 06/25/25 04:04: Sodium 135, Potassium 3.4, Chloride 98, Carbon Dioxide 21.4, Anion Gap 16 H, BUN 18, Creatinine 1.07, Estim Creat Clear Calc 51.77, Est GFR (MDRD) Non-Af 71, BUN/Creatinine Ratio 16.6, Glucose 39 L*, Calcium 7.9, Total Bilirubin 0.62, AST 41 H, ALT 15, Alkaline Phosphatase 196 H, Total Protein 5.5 L, Albumin 3.0 L, Globulin 2.5, Albumin/Globulin Ratio 1.2 06/25/25 04:35: WBC 5.8, RBC 2.40 L, Hgb 8.2 L, Hct 23.9 L, MCV 99.6 H, MCH 34.2 H, MCHC 34.3, RDW Std Deviation 50.0 H, RDW Coeff of Meri 14.1, Plt Count 84 L, MPV 10.0 06/25/25 06:02: POC Glucose 62 L 06/25/25 06:34: POC Glucose 89 Microbiology: Microbiology 06/24/25 13:23 Stool Stool Occult Blood (LISETTE) - Final Occult Blood Positive D/C Instructions Call your doctor if you observe: Fever of 101 or Higher, Shortness of breath, Dizziness, Fainting spells, Swelling in the ankles, Chest pain and Increased palpitations (irregular heartbeat) DC O2, CPAP, BIPAP Needs Home O2 Discharge instructions: No Meaningful Use Info Meaningful Use Meaningful Use Diagnoses (Choose all that apply): None applicable Discharge Plan Admission Admit Date/Time: 06/24/25 15:23 Attending Provider: Zaki Mosquera Primary Care Provider: Efrain Peters Consulting Providers: Bandar Salmeron Discharge Orders/Prescriptions Prescriptions: Continued levothyroxine [Levoxyl] 125 mcg tablet 125 mcg PO DAILY acetaminophen 325 mg Tablet 650 mg PO Q6H PRN PRN (Reason: Pain 1-10 Or Fever) Qty: 0 0RF Referrals / Follow Up: Efrain Peters DO [Primary Care Provider] - Within 1 Week Disposition Disposition (needs filled in before D/C Order can be placed): Home, Self Care Charges/Coding Visit Charges Inpatient E&M: 23009 Disch Hosp >30min
[2025-06-26 15:08] LABS: Folate, Hemolysate Test 325.0 ng/mL (Not Estab.); Folate, RBC (Hct) Test 24.2 % (37.5-51.0); Folates, RBC Test 1343 ng/mL (>498)
== END 2025-06-25 10:04 | disposition home or self-care (01) ==
LOC: ED 16:22 → MS3 16:29
PROVIDERS: Admitting Provider Hospitalist; Emergency Provider Emergency Medicine; PCP Student in an Organized Health Care Education/Training Program; Visit Provider Family Medicine
DX: E86.0 Dehydration (principal); C80.0 Disseminated malignant neoplasm, unspecified; C22.1 Intrahepatic bile duct carcinoma; E87.8 Other disorders of electrolyte and fluid balance, not elsewhere classified; I10 Essential (primary) hypertension; R19.5 Other fecal abnormalities; D64.9 Anemia, unspecified; E03.9 Hypothyroidism, unspecified; R55 Syncope and collapse; R62.7 Adult failure to thrive; E86.1 Hypovolemia; D69.59 Other secondary thrombocytopenia; E83.42 Hypomagnesemia; R53.1 Weakness; K21.9 Gastro-esophageal reflux disease without esophagitis; Z79.899 Other long term (current) drug therapy; Z79.890 Hormone replacement therapy; N17.9 Acute kidney failure, unspecified
CPT/HCPCS: 36415; 71045; 80048; 80053; 80076; 81001; 82274; 82607; 82728; 82747; 82962; 83540; 83550; 83605; 83690; 83735; 84100; 85014; 85025; 85027; 85610; 85730; 93005; 96360; 96361; 99221; 99285; A4216; G0378

== ENCOUNTER 2025-06-26 04:21 | Emergency (ER) | payer MEDICARE, SELFPAY ==
[2025-06-26] VITALS (7 sets, daily range): BP systolic 104–140; BP diastolic 53–83; PULSE 72–80; RESP 16–20; TEMP 36.2–36.6; O2SAT 96–100; BMI 21.1
--- NOTE | 2025-06-26 04:42 | EDS_ITS ---
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 Lemons. He receives chemo 3 times a week. He was seen on June [address] Lizarraga and admitted for failure to thrive. He was discharged on the . Discharge/progress note by Dr. Zaki Mosquera was reviewed. The reason he was sent to the emergency room on the was that he was hypotensive when he was seen by Dr. Flores. Patient states his phone was not functioning and he drove himself into the emergency room ascetic coming in by ambulance. He does endorse nausea. He did have a bowel movement prior to coming in. His stool was not black or maroon. He states his urine was slightly darker than normal. He denies fever, chills night sweats. He denies headache, visual, ocular auditory symptoms. He denies chest pain or shortness of breath. 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 He has been on chemo since January 15. The surgical team at [facility] discussed his case. They stated he would need interventional cholecystectomy. However this is complicated due to the fact of his advanced cancer with local infiltration. He is on chemo per the NCCN guidelines. Patient denies paresthesia, anesthesia or focal motor weakness. When he was admitted he was noted to have an elevated creatinine. Prior similar symptoms: Yes Recent Illness/Hospitalization: [facility] Medical History Carcinomatosis Wears glasses Non-smoker Hypertension Right inguinal hernia Hypothyroid Nocturia Internal hemorrhoids GERD (gastroesophageal reflux disease) Erectile dysfunction Diverticulosis Home Medications ?Medication ?Instructions ?Recorded ?Last Taken ?Type acetaminophen 325 mg tablet 650 mg (2 x 325 mg) PO Q6H PRN PRN 11/20/24 Unknown Rx Pain 1-10 Or Fever #0 tabs levothyroxine 125 mcg tablet 125 mcg PO DAILY disorder of 06/24/25 06/24/25 History (Levoxyl) thyroid gland hydrocodone-acetaminophen 5-325mg 1 tab PO Q6H PRN PRN Pain 7 days 06/26/25 Unknown Rx 5mg-325mg #28 TABLETS ondansetron 4 mg disintegrating 4 mg PO Q8H PRN PRN Na usea #20 tabs 06/26/25 Unknown Rx tablet Allergy/AdvReac Type Severity Reaction Status Date / Time No Known Allergies Allergy Verified 06/26/25 04:22 Family History Mother Asthma Father Heart disease High cholesterol Surgical History History of ERCP S/P right inguinal hernia repair History of hydrocelectomy Hx of colonoscopy Social History Smoking Status: Never smoker second hand exposure: No alcohol intake: never substance use type: does not use caffeine: Yes what type of physical activity do you participate in: walking, aerobics and we ight training frequency: daily ROS ROS ED Constitutional Constitutional ED: Reports sweats and weight loss; Denies chills, fever(s) or subjective Eyes Eyes: Denies blurry vision or change in vision ENT ENT ED: Denies ear pain, rhinorrhea or sore throat Cardiovascular Cardiovascular: Denies chest pain, orthopnea, palpitations or paroxysmal nocturnal dyspnea Respiratory/Chest Respiratory/Chest: Denies cough, dyspnea, dyspnea on exertion, orthopnea or paroxysmal nocturnal dyspnea Gastrointestinal Gastrointestinal: Reports abdominal pain and nausea; Denies constipation, diarrhea, melena or vomiting Genitourinary Genitourinary ED: Reports other Details: Darker and less urine ; Denies dysuria, hematuria or urinary frequency Musculoskeletal Musculoskeletal: Denies arthralgias or myalgias Integumentary Denies rash Neurologic Neurologic: Reports weakness; Denies headache(s) Hematologic/Lymphatic Hematologic/Lymphatic: Reports systems reviewed and no addt'l complaints, except as documented EXAM Physical Exam Const Vital Signs: 06/26/25 04:23 06/26/25 04:23 06/26/25 04:50 Temperature 97.2 F L Temperature Source Oral Pulse Rate 79 72 Respiratory Rate 20 H 18 Respiratory Effort Short of Breath Labored Respiratory Pattern Tachypnea Blood Pressure 140/72 H 104/53 L Blood Pressure Mean 94 70 Pulse Ox 100 96 Oxygen Delivery Method Room Air Room Air 06/26/25 05:30 06/26/25 06:00 Temperature Temperature Source Pulse Rate 76 72 Respiratory Rate 16 18 Respiratory Effort Respiratory Pattern Blood Pressure 138/73 H 120/60 Blood Pressure Mean 94 80 Pulse Ox 99 98 Oxygen Delivery Method Room Air Room Air Positive well developed Constitutional Narrative: Patient appears thin. He has temporal wasting. He has alopecia. General Appearance ED: well developed and pallor HEENT Reports dry mucous membranes HEENT Narrative: Head is atraumatic. Ears normal. Posterior pharynx is normal. Mouth ED: Yes dry mucous membranes Mouth: dry mucous membranes Eyes PERRL and EOMs intact bilaterally Eyes Narrative: Patient may have slight scleral icterus. General Eye ED: Yes pale conjunctiva and scleral icterus Neck no lymphadenopathy, supple and no JVD Chest Wall inspection of chest normal and palpation of chest normal Resp normal respiratory effort and clear to auscultation bilaterally Cardio regular rate, S1 normal heart sound, S2 normal heart sound and no murmurs GI GI Narrative: Abdomen is scaphoid. There is no palp pulsatile mass. There is no pedal splenomegaly. There is no abdominal bruit. Palpation: soft; Negative for tender, guarding or splenomegaly Back/Spine no CVA tenderness Extremity normal to inspection General Extremety ED: Negative for tenderness Neuro oriented x3 and CN's II-XII intact bilaterally Sensorium / Orientation: alert Psych Mood & Affect: depressed Skin no rashes or lesions noted, no wounds and No skin turgor normal General Skin Exam: jaundice and pallor; Negative for elasticity normal Lesions: No lesion noted Rashes: No rashes noted Trauma: Negative for abrasion MDM MDM MDM Narrative Medical decision making narrative: Clinically patient appears dehydrated. He is pale and concern he is anemic compounding his symptoms. He may have jaundice. This is probably due to his cholangiocarcinoma. Triage had documented he has chest pain and EKG was obtained per nurse protocol. EKG in my opinion reveals sinus rhythm with occasional premature beat and reveals no acute ischemic changes. Computer is reading ossific ST-T wave changes which is artifact. Competence of metabolic panel was obtained to assess electrolytes, renal function, BUN to creatinine ratio and liver enzymes as well as bilirubin. CBC to assess for anemia and compare to prior. History & Record Review Additional record(s) reviewed:: Prior inpatient record (Documented HPI narrative), Prior ED visit and Prior labs Lab Data Attestation: I reviewed the patient's lab results. Lab results narrative: CBC reveals macrocytic anemia. His hemoglobin is elevated by 1.4 g and his hematocrit is up as well. This may be due to hemoconcentration. He does have mild thrombocytopenia. His platelet count has improved since the eighth. Comprehensive metabolic panel reveals an elevated anion gap. His last 3 anion gap's have been elevated. BUN and creatinine are normal. BUN to creatinine ratio is normal. Alkaline phosphatase slightly elevated. This is in line with prior results. Labs: Laboratory Results - last 24 hr 06/26/25 04:34 WBC 6.8 RBC 2.79 L Hgb 9.6 L Hct 28.0 L MCV 100.4 H MCH 34.4 H MCHC 34.3 RDW Std Deviation 52.8 H RDW Coeff of Meri 14.5 Plt Count 130 L MPV 9.9 Immature Gran % (Auto) 2.100 H Neut % (Auto) 60.2 Lymph % (Auto) 18.8 L Preble % (Auto) 16.5 H Eos % (Auto) 1.8 Baso % (Auto) 0.6 Absolute Neuts (auto) 4.1 Absolute Lymphs (auto) 1.27 Nucleated RBC % 0 Sodium 135 Potassium 3.3 Chloride 97 L Carbon Dioxide 22.1 Anion Gap 17 H BUN 14 Creatinine 1.00 Estim Creat Clear Calc 56.70 Est GFR (MDRD) Non-Af 78 BUN/Creatinine Ratio 14.0 Glucose 75 Calcium 8.6 Total Bilirubin 1.06 AST 69 H ALT 20 Alkaline Phosphatase 251 H Total Protein 6.5 Albumin 3.4 Globulin 3.1 Albumin/Globulin Ratio 1.1 Treatment and Re-Evaluation :: Patient was informed that his pain in all likely is related to his cancer. The Zofran and morphine he was administered initially has not helped. In light of this we will order Reglan and Dilaudid. Patient's does have a living will. He states he does not want to be kept alive . If my heart stops I do not want it restarted. With respect to ventilator if it is something reversible like pneumonia invasive ventilation/intubation is acceptable. He states he does not want things to thank you done just to keep him alive. He understands his prognosis is poor. Comments:: Patient was reassessed at 0626. Patient states the pain is tolerable. Plan is discharge with pain medicine and antiemetic. Discharge Plan Triage Chief Complaint: Chest Pain ED Provider: Niraj Shetty Dx/Rx/DC Orders Clinical Impression: Abdominal pain, Cholangiocarcinoma, Nausea & vomiting, High anion gap, Abdominal carcinomatosis, DNR (do not resuscitate) discussion, DNR no code (do not resuscitate) Instructions: Coping with Advanced Cancer, Coping Tips During Cancer Treatment Prescriptions: New hydrocodone-acetaminophen 5-325 mg tablet 1 tab PO Q6H PRN PRN (Reason: Pain) 7 Days Qty: 28 0RF ondansetron 4 mg tablet,disintegrating 4 mg PO Q8H PRN PRN (Reason: Nausea) Qty: 20 0RF No Action levothyroxine [Levoxyl] 125 mcg tablet 125 mcg PO DAILY acetaminophen 325 mg Tablet 650 mg PO Q6H PRN PRN (Reason: Pain 1-10 Or Fever) Qty: 0 0RF Primary Care Provider: Efrain Peters Referrals: Efrain Peters DO [Primary Care Provider] - As Needed Print Language: Tajik Disposition Disposition: Home, Self Care
[2025-06-26] MEDS: 0.9% Normal Saline (1000mL) 1,000 ML 1000 ML IV (04:45)
[2025-06-26 04:48] LABS: Hematocrit 28.0 % (40-54); Hemoglobin 9.6 g/dL (13.0-16.5); Immature Granulocytes Count 0.140 X10^3/uL (0.0-0.0); Mean Corp Hgb Conc 34.3 g/dL (32-36); Mean Corpuscular Volume 100.4 fL (80-94); Mean Platelet Vol. 9.9 fl (6.2-12.0); NRBC Flagged by Analyzer 0 % (0-5); Platelet Count 130 K/mm3 (150-450); RBC Distribution Width CV 14.5 % (11.6-14.6); RBC Distribution Width SD 52.8 fl (35.1-43.9); Red Blood Count 2.79 M/mm3 (4.6-6.2); White Blood Count 6.8 K/mm3 (4.4-11.0)
[2025-06-26 05:05] LABS: AST(SGOT) 69 U/L (<=37); Alanine Aminotransfer ALT/SGPT 20 U/L (<=46); Albumin, Serum 3.4 g/dL (3.4-4.8); Alkaline Phosphatase 251 U/L (40-129); Anion Gap 17 (5-15); BUN 14 mg/dL (4-19); BUN/Creat Ratio 14.0 RATIO (10-20); Calcium,Total 8.6 mg/dL (7.6-11.0); Carbon Dioxide 22.1 mmol/L (21.0-32.0); Chloride 97 mmol/L (98-108); Estimated Creatinine Clearance 56.70 ml/min (50-250); Globulin 3.1 g/dL (2.2-4.2); Glucose 75 mg/dL (70-99); Potassium 3.3 mmol/L (3.3-5.1)
--- OUTSIDE RECORDS SUMMARY | 2025-06-26 05:20 | XMS RPT_ITS | CCD ---
Author Organization [facility] Care Team Providers Care Clinical Care Leader Name Role Phone Efrain Peters DO Primary Care Provider Efrain Peters DO Primary Care Provider Tom ANESTHESIOLOGY TEACHER.Marcia LIN Unavailable Marisa Allen APRN.CNP Unavailable Unavailable Primary Care Provider Unavailabl e BRAYAN HERRERA Attending Unavailable BRAYAN HERRERA Admitting Unavailable Quan Myers DO Unavailable Mike Malagon MD Unavailable Onel Dumont MD Unavailable Eduar DOWNS, Dione Unavailable Dr. Efrain Peters DO Primary Care Provider Dr. Efrain Peters DO Referring Provider Jannie Laureano Attending Provider Jannie Laureano Referring Provider Dr. Molly Lizarraga DO Attending Provider Dr. Molly Lizarraga DO Emergency Provider Barney Serna MD Attending Provider Barney Serna MD Emergency Provider Dr. Quan Myers DO Attending Provider Dr. Juan Perez MD Attending Provider Dr. Quan Myers DO Other Provider Dr. Molly Lizarraga DO Referring Provider Blanc DO, Dr. Page Admit Provider Unavail able Blanc DO, Dr. Page Other Provider Unavail able Won MUNROE, Dr. Page Attending Provider Unavaila favian Newton DO, Dr. Carrion Other Provider Manas MUNROE, Dr. Mckeon Other Provider Aristides MUNROE, Dr. Donovan Other Provider Heidi MUNROE, Dr. Kingsley Other Provider Johann MUNROE, Dr. Griffiths Other Provider Kingsley HDZ, Dr. Dumas Other Provider Brenda MUNROE, Dr. Camilo Everett Other Provider Clare MUNROE, Dr. Schneider Other Provider Nicola MUNROE, Dr. Manriquez Other Provider [phone] Екатерина MUNROE, Dr. Marai Other Provider Azeem MUNROE, Dr. Verdin Other Provider Tommie MUNROE, Dr. Shields Other Provider Elton MUNROE, Dr. Rodrigues Other Provider Liu MUNROE, Dr. Navarrete Other Provider Dr. Luisa Rogers MD Other Provider Unavailabl lizette Ray MD, Dr. Oropeza Other Provider Elizabeth MUNROE, Dr. Hobson Other Provider Dr. Jordin Zhang MD Other Provider Raúl MUNROE, Dr. Sommer Other Provider Marlys HDZ, Dr. Jennings Other Provider Dr. Gabino Womack MD Other Provider Dr. Mickey Méndez MD Other Provider Dr. Dmitriy Vyas DO Other Provider Stephen MUNROE, Dr. Mckeon Other Provider Moe MUNROE, Dr. Rico Other Provider Manas MUNROE, Dr. Mckeon Attending Provider Won MUNROE, Dr. Page Other Provider Unavailable Kingsley HDZ, Dr. Dumas Attending Provider Manas MUNROE, Dr. Mckeon Referring Provider Tank ANESTHESIOLOGY TEACHER.LANDCARE OFFICER, Imelda Ryan Unavailable Fran HDZ, Dr. Zuniga Primary Care Provider Fran HDZ, Dr. Zuniga Referring Provider Urbano Georges PA-C Attending Provider Cristo MUNROE, Dr. Sykes Attending Provider [phone] Cristo MUNROE, Dr. Sykes Referring Provider DEBRA WOODS Referring Unavaila ble DEBRA WOODS Attending Unavaila ble FRAN, EFRAIN Leah Primary Care Unavailable EFRAIN PETERS Primary Care Unavailable Dr. Efrain Peters DO Primary Care Provider [phone] Dr. Molly Lizarraga DO Emergency Provider [phone] Jaron HDZ, Dr. Portillo Admit Provider Dr. Bandar Salmeron DO Attending Provider EFRAIN PETERS Primary Care Unavailable ONEL DUMONT Referring Unavailable EFRAIN PETERS Primary Care Unavailable EFRAIN PETERS Primary Care Unavailable ONEL DUMONT Attending Unavailable EFRAIN PETERS Primary Care Unavailable EFRAIN PETERS Primary Care Unavailable ONEL DUMONT Referring Unavailable EFRAIN PETERS Primary Care Unavailable ONEL DUMONT Referring Unavailable PETERS, EFRAIN L Primary Care Unavailable ONEL DUMONT Referring Unavailable PETERS, EFRAIN L Primary Care Unavailable ONEL DUMONT Referring Unavailable PETERS, EFRAIN L Primary Care Unavailable CASIE BARRAGAN Referring Unavailable FRAN, EFRAIN Lynn Primary Care Unavailable ONEL DUMONT Referring Unavailable PETERS, EFRAIN L Primary Care Unavailable ABRAMOVICH, ONEL Referring Unavailable PETERS, EFRAIN L Primary Care Unavailable ABRAMOVICH, ONEL Referring Unavailable PETERS, EFRAIN L Primary Care Unavailable PETERS, EFRAIN L Primary Care Unavailable ABRAMOVICH, ONEL Referring Unavailable PETERS, EFRAIN L Primary Care Unavailable BARRAGAN, CASIE Attending Unavailable PETERS, EFRAIN L Primary Care Unavailable PETERS, EFRAIN L Primary Care Unavailable ABRAMOVICH, ONEL Referring Unavailable PETERS, EFRAIN L Primary Care Unavailable PETERS, EFRAIN L Primary Care Unavailable ABRAMOVICH, ONEL Referring Unavailable PETERS, EFRAIN L Primary Care Unavailable ABRAMOVICH, ONEL Referring Unavailable PETERS, EFRAIN L Primary Care Unavailable PETERS, EFRAIN L Primary Care Unavailable ABRAMOVICH, ONEL Referring Unavailable PETERS, EFRAIN L Primary Care Unavailable ABRAMOVICH, ONEL Referring Unavailable PETERS, EFRAIN L Primary Care Unavailable ABRAMOVICH, ONEL Referring Unavailable PETERS, EFRAIN L Primary Care Unavailable ABRAMOVICH, ONEL Attending Unavailable ABRAMOVICHONEL Attending Unavailable PETERS, EFRAIN L Primary Care Unavailable PETERS, EFRAIN L Primary Care Unavailable PETERS, EFRAIN L Primary Care Unavailable ABRAMOVICH, ONEL Referring Unavailable PETERS, EFRAIN L Primary Care Unavailable ABRAMOVICH, ONEL Referring Unavailable PETERS, EFRAIN L Primary Care Unavailable ABRAMOVICH, ONEL Referring Unavailable PETERS, EFRAIN L Primary Care Unavailable ABRAMOVICH, ONEL Referring Unavailable PETERS, EFRAIN L Primary Care Unavailable ABRAMOVICH, ONEL Referring Unavailable PETERS, EFRAIN L Primary Care Unavailable ABRAMOVICH, ONEL Referring Unavailable PETERS, EFRAIN L Primary Care Unavailable PETERS, EFRAIN L Primary Care Unavailable JOEL, CASIE Referring Unavailable PETERS, EFRAIN L Primary Care Unavailable PETERS, EFRAIN L Primary Care Unavailable ABRAMOVICH, ONEL Referring Unavailable PETE, URBANO Attending Unavailable PETERS, EFRAIN L Primary Care Unavailable ABRAMOVICHONEL Referring Unavailable PETE, URBANO Attending Unavailable PETERS, EFRAIN L Primary Care Unavailable ABRAMOVICH, ONEL Referring Unavailable PETERS, EFRAIN L Primary Care Unavailable PETERS, EFRAIN L Primary Care Unavailable PETERS, EFRAIN L Primary Care Unavailable PETERS, EFRAIN L Primary Care Unavailable PETERS, EFRAIN L Primary Care Unavailable PETERS, EFRAIN L Primary Care Unavailable ABRAMOVICH, ONEL Referring Unavailable URBANO BERRY Attending Unavailable PETERS, EFRAIN L Primary Care Unavailable PETERS, EFRAIN L Primary Care Unavailable ABRAMOVICH, ONEL Attending Unavailable PETERS, EFRAIN L Primary Care Unavailable ABRAMOVICH, ONEL Attending Unavailable PETERS, EFRAIN L Primary Care Unavailable ABRAMOVICJanie, ONEL Referring Unavailable PETERS, EFRAIN L Primary Care Unavailable PETERS, EFRAIN L Primary Care Unavailable ABRAMOVICH, ONEL Referring Unavailable PETERS, EFRAIN L Primary Care Unavailable ABRAMOVICH, ONEL Referring Unavailable PETERS, EFRAIN L Primary Care Unavailable ABRAMOVICH, ONEL Referring Unavailable PETERS, EFRAIN L Primary Care Unavailable ABRAMOVICH, ONEL Attending Unavailable PETERS, EFRAIN L Attending Unavailable PETERS, EFRAIN L Primary Care Unavailable PETERS, EFRAIN L Referring Unavailable PETERS, EFRAIN L Primary Care Unavailable Peters, Efrain Primary Care Unavailable Quan Myers Attending Unavailable Quan Myers Consulting Unavailable Peters, Efrain Referring Unavailable Peters, Efrain Primary Care Unavailable Molly Lizarraga Referring Unavailable Camilo Blanc Consulting Unavailable Camilo Blanc Admitting Unavailable Piter Wynn Attending Unavailable Zion Irving Consulting Unavailable Sancho Gordon Consulting Unavailable Tunde Wills Consulting Unavailable Piter Wynn Consulting Unavailable Camilo Gutierrez Consulting Unavailable Wyatt Sparks Consulting Unavailable Declan Petersen Consulting Unavailable Candace Willams Consulting UnavailLambert Chadwick Consulting Unavailable Cornelius Reilly Consulting Unavailable Ravi Conde Consulting Unavailable Rosalba Hatfield Consulting Unavailable Luisa Rogers Consulting Unavailable Ray, Johnna Consulting Unavailable Elizabeth, Joce Consulting Unavailable Vicente Jordin Consulting Unavailable Raúl, Kemal Consulting Unavailable Dhesi, Dick Consulting Unavailable Gabino Womack Consulting Unavailable Mickey Méndez Consulting Unavailable Dmitriy Vyas Consulting Unavailable Mike Mitchell Consulting Unavailable Jacky Rosa Consulting Unavailable Mike Malagon Consulting Unavailable Sheyla Newton Consulting Unavailable Camilo Upton Consulting Unavailable Camilo Upton Attending Unavailable Mike Malagon Attending Unavailable Peters, Efrain Primary Care Unavailable Peters, Efrain Referring Unavailable Mike Malagon Consulting Unavailable Peetrs, Efrain Primary Care Unavailable Quan Myers Attending Unavailable Peters, Efrain Referring Unavailable CalneelaettaMike Attending Unavailable Peters, Efrain Primary Care Unavailable Manas Mike Referring Unavailable SoumyaettaMike Attending Unavailable Peters, Efrain Primary Care Unavailable Peters, Efrain Referring Unavailable SoumyaettaMike Attending Unavailable Peters, Efrain Primary Care Unavailable Peters, Efrain Referring Unavailable CalabrettaMike Attending Unavailable Peters, Efrain Primary Care Unavailable Peters, Efrain Referring Unavailable Jannie Souza Attending Unavailable Camilo Blanc Attending Unavailable SoumyaettaMike Attending Unavailable Peters, Efrain Primary Care Unavailable Manas Mike Referring Unavailable Markabretta Mike Consulting Unavailable Peters, Efrain Primary Care Unavailable Urbano Tate Attending Unavailable Peters, Efrain Referring Unavailable Peters, Efrain Primary Care Unavailable Bandar Salmeron Attending Unavailable Bandar Salmeron Admitting Unavailable Bandar Salmeron Consulting Unavailable Peters, Efrain Primary Care Unavailable Onel Dumont Referring Unavailable Onel Dumont Attending Unavailable aZki Mosquera Attending Unavailable Peters, Efrain Primary Care Unavailable Mike Malagon Referring Unavailable Ozzy Garcia Attending Unavailabl e Peters, Efrain Primary Care Unavailable Jannie Souza Attending Unavailable Jannie Souza Referring Unavailable Peters, Efrain Primary Care Unavailable Jannie Souza Attending Unavailable Jannie Souza Referring Unavailable Molly Lizarraga Referring Unavailable Camilo Blanc Admitting Unavailable Peters, Efrain Primary Care Unavailable Camilo Upton Attending Unavailable Camilo Blanc Consulting Unavailable Sheyla Newton Consulting Unavailable Mike Malagon Consulting Unavailable Zion Irving Consulting Unavailable Sancho Gordon Consulting Unavailable Tunde Wills Consulting Unavailable Piter Wynn Consulting Unavailable Camilo Gutierrez Consulting Unavailable Wyatt Sparks Consulting Unavailable Declan Petersen Consulting Unavailable Candace Willams Consulting Unavailab Lambert Dalton Consulting Unavailable Cornelius Reilly Consulting Unavailable Ravi Conde Consulting Unavailable Rosalba Hatfield Consulting Unavailable Luisa Rogers Consulting Unavailable RayJohnna gross Consulting Unavailable Elizabeth, Joce Consulting Unavailable Jordin Zhang Consulting Unavailable Raúl, Kemal Consulting Unavailable Dhesi, Dick Consulting Unavailable Gabino Womack Consulting Unavailable Mickey Méndez Consulting Unavailable Dmitriy Vyas Consulting Unavailable Mike Mitchell Consulting Unavailable Jacky Rosa Consulting Unavailable Quan Myers Attending Unavailable PetersEfrain Primary Care Unavailable Molly Lizarraga Attending Unavailable PetersEfrain Primary Care Unavailable Barney Serna Attending Unavailable Peters Efrain Referring Unavailable Peters, Efrain Primary Care Unavailable Juan Perez Attending Unavailable Dr. Bandar Salmeron DO Other Provider [phone] Eveline MUNROE, Dr. Zaki Chance Attending Provider Allergies Allergy Classification Reported Allergen(s) Allergy Type Date of Onset Reaction(s) Facility (2 sources) Naproxen Drug Allergy 07-23-[address] [facility] Medications Current Medications Medication Drug Class(es) Dates Sig (Normalized) Sig (Original) acetaminophen 325 mg oral tablet (4 sources) Start: 11-20-2024 take 1-10 tablets by mouth every six hours as needed for pain Acetaminophen 325 mg Tablet Active 650 mg PO EVERY 6 HOURS NEEDED as needed for Pain 1-10 Or Fever 0 0 November 20, 2024 1:00am amylase [id number] unt / lipase 96485 unt / protease [id number] unt delayed release oral capsule (20 sources) Start: 02-26-2025 take 2 capsules by mouth three times daily at mealtime vbzbyj-vmcepxlq-wjn lase (ZENPEP) 40,000-126,000- 168,000 unit delayed release capsule Take 2 capsules by mouth three times a day with meals. 100 capsule 02/26/2025 Active Start: 10-12-2024 End: 02-26-2025 take 1 capsule by mouth at bedtime lcajet-ighydbro-spyiycb (CREON 3) 3,000-9,500- 15,000 unit delayed release capsule Take 1 capsule by mouth with meals and at bedtime. 120 capsule 3 10/12/2024 02/26/2025 Discontinued enteric contrast (will be provided with radiology test) (3 sources) Start: 02-25-2025 End: 02-26-2025 enteric contrast (will be provided with radiology test) Indications: Cholangiocarcinoma (HCC) For CT CHESTABD/PEL W IVCON Routine order Administer, As Directed One Time Only, via Oral, Rectal, both Oral and Rectal, Enteric Tube, Stoma or Indwelling Catheter, Enteric Contrast as designated per enteric contrast guidelines 1 each 02/25/2025 02/26/2025 Active hydrocortisone 25 mg/ml topical cream (20 sources) Corticosteroid Start: 11-18-2021 End: 12-07-2023 hydrocortisone (PROCTOZONE-HC) 2.5 % rectal cream 1 application by RECTAL route as needed. 56 g 3 12/07/2023 Active Comment on above: 1 application by REC ARTHUR route as needed. iv contrast (will be provided with radiology test) (6 sources) Start: 05-27-2025 End: 05-28-2025 iv contrast (will be provided with radiology test) Indications: Cholangiocarcinoma (HCC) MRI LIVER (EOVIST) Inject, intravenously, once for 1 dose. No IV access, insert saline lock prior to the beginning of sedation, infusion, injection of imaging exam. Discontinue saline lock post exam. If Pt. has a central line or IVAD, may access for administration according to line specific nursing protocol. Once exam is complete flush line and de-access according to line specific nursing protocol in the MR contrast administration guidelines link. 1 each 05/27/2025 05/28/2025 Active Start: 03-21-2025 End: 03-22-2025 iv contrast (will be provide d with radiology test) Indications: Cholangiocarcinoma (HCC) MRI Liver Inject, intravenously, once for 1 dose. No IV access, insert saline lock prior to the beginning of sedation, infusion, injection of imaging exam. Discontinue saline lock post exam. If Pt. has a central line or IVAD, may access for administration according to line specific nursing protocol. Once exam is complete flush line and de-access according to line specific nursing protocol in the MR contrast administration guidelines link. 1 each 03/21/2025 03/22/2025 Active Start: 02-25-2025 End: 02-26-2025 iv contrast (will be provide d with radiology test) Indications: Cholangiocarcinoma (HCC) CT Chest ABD/PEL-Inject, intravenously, once for 1 dose.No IV access, insert saline lock prior to the beginning of sedation, infusion, injection of imaging exam. Discontinue saline lock post exam. If Pt. has a central line or IVAD, may access for administration according to line specific nursing protocol. Once exam is complete flush line and de-access according to line specific nursing protocol in the CT contrast administration guidelines link. 1 each 02/25/2025 02/26/2025 Active Lactobacillus acidophilus (20 sources) Lactobacillus ac idophilus (PROBIOTIC ORAL) Take 1 tablet by mouth as needed. Active take 1 tablet by mouth every oth er day Lactobacillus acidophilus (PROBIOTIC ORAL) Take 1 tablet by mouth every other day. Active take 1 tablet by mouth once shanda y Lactobacillus acidophilus (PROBIOTIC ORAL) Take 1 tablet by mouth once daily. Active levothyroxine sodium 0.125 mg oral tablet (20 sources) l-Thyroxine Start: 12-12-2024 End: 06-24-2025 take 1 capsule by mouth once daily Levothyroxine 125 mcg capsule Discontinued 125 ug PO daily December 12, 2024 1:00am June 24, 2025 9:44am Start: 11-18-2021 End: 12-10-2024 take 1 tablet by mouth once daily Levothyroxine (Levoxyl) 125 mcg tablet Active 125 ug PO DAILY June 24, 2025 12:00am disorder of thyroid gland Start: 11-23-2017 End: 12-12-2024 Levothyroxine 175 MCG tablet Discontinued 125 ug PO DAILY November 23, 2017 1:00am December 12, 2024 2:44pm Comment on above: Take 1 tablet by linda th once daily. Take on empty stomach. For thyroid. Multivitamins-Minerals- Lutein (CENTRUM SILVER) Tab (20 sources) Start: 2012 take 1 tablet by mouth once daily Multivitamins-Minerals -Lutein (CENTRUM SILVER) Tab Take 1 tablet by mouth once daily. 0 04/13/2013 Active Comment on above: Take 1 tablet by linda th once daily. predniSONE 10 mg oral tablet (1 source) Start: 2024 take 1 tablet by mouth twice daily at mealtime predniSONE (DELTASONE) 10 mg tablet Take 1 tablet by mouth two times a day with meals. 60 tablet 3 06/25/2025 Active prochlorperazine 10 mg oral tablet (20 sources) Phenothiazine Start: 2024 End: 2024 take 1 tablet by mouth every six hours as needed prochlorperazine (COMPAZINE) 10 mg tablet Take 1 tablet by mouth every 6 hours as needed. 40 tablet 2 12/31/2024 Active sennosides, mcfp 8.6 mg oral tablet (20 sources) take 1 tablet by mouth twice daily Senna 8.6 mg tab Take 8.6 mg by mouth two times a day. Active Completed/Discontinued Medications Medication Drug Class(es) Dates Sig (Normalized) Sig (Original) amoxicillin 875 mg / clavulanate 125 mg oral tablet (4 sources) Penicillin-class Antibacterial Start: 11-20-2024 End: 12-12-2024 Amoxicillin-Pot Clavulanate 875-125 mg tablet Discontinued 1 {tbl} PO TWICE A DAY 20 November 20, 2024 1:00am December 12, 2024 2:44pm aspirin 81 mg delayed release oral tablet (17 sources) Platelet Aggregation Inhibitor, Nonsteroidal Anti-inflammatory Drug Start: 11-23-2017 End: 10-25-2024 take 1 tablet by mouth once daily Aspirin 81 MG tablet,delayed release (DR/EC) Discontinued 81 mg PO DAILY November 23, 2017 1:00am October 25, 2024 10:29am Start: 10-15-2013 End: 10-05-2024 take 1 tablet by mouth once daily at mealtime Aspirin 81 mg tab Take 1 tablet by mouth once daily. Take with food. 30 tablet 11 10/15/2013 10/05/2024 Discontinued (Course of therapy completed) Comment on above: Take 1 tablet by linda once daily. Take with food. Bromfenac 0.075 % drops (2 sources) Start: 06-24-20 End: 06-24-20 take 0.075 drop(s) into the eye(s) once daily Bromfenac 0.075 % drops Discontinued 1 NMA LEFT EYE DAILY June 24, 2025 12:00am June 24, 2025 10:27am calcium chloride 0.0014 meq/ml / potassium chloride 0.004 meq/ml / sodium chloride 0.103 meq/ml / sodium lactate 0.028 meq/ml injectable solution (1 source) Start: 05-16-20 End: 05-16-20 take 5-30 mL intravenously every hour 5-30 mL/hr, INTRAVENOUS, CONTINUOUS, Starting on Tue05/16/25 at 0730, Until Tue05/16/25 at 1042, Preprocedure CISplatin 45.5 mg in NaCl 0.9% 585.5 mL (PLATINOL) (11 sources) Start: 06-11-20 End: 06-11-20 45.5 mg (25 mg/m2 1.82 m2 Treatment Plan BSA from Recorded weight), INTRAVENOUS, Administer over 1 Hours, ONCE, 1 dose, On Tue06/11/25 at 1130, EXP: 06/12/25 @1500 RT Hazardous Chemotherapy Drug: Use appropriate PPE. Antineoplastic Vesicant for concentrations greater than 0.4 mg/mL - Antineoplastic Irritant for concentrations less than 0.4 mg/mL. Protect from Light. Start: 05-28-2025 End: 05-28-2025 45.5 mg (25 mg/m2 1.82 m2 Tr eatment Plan BSA from Recorded weight), INTRAVENOUS, Administer over 1 Hours, ONCE, 1 dose, On Tue05/28/25 at 1100, exp 199905/28/25 (room temp) Hazardous Chemotherapy Drug: Use appropriate PPE. Antineoplastic Vesicant for concentrations greater than 0.4 mg/mL - Antineoplastic Irritant for concentrations less than 0.4 mg/mL. Protect from Light. Start: 05-07-2025 End: 05-07-2025 45.5 mg (25 mg/m2 1.82 m2 Tr eatment Plan BSA from Recorded weight), INTRAVENOUS, Administer over 1 Hours, ONCE, 1 dose, On Tue05/07/25 at 1100, exp 199905/07/25 (room temp) Hazardous Chemotherapy Drug: Use appropriate PPE. Antineoplastic Vesicant for concentrations greater than 0.4 mg/mL - Antineoplastic Irritant for concentrations less than 0.4 mg/mL. Protect from Light. Start: 04-23-2025 End: 04-23-2025 45.5 mg (25 mg/m2 1.82 m2 Tr eatment Plan BSA from Recorded weight), INTRAVENOUS, Administer over 1 Hours, ONCE, 1 dose, On Tue04/23/25 at 1230, exp 17004/23/25 (room temp) Hazardous Chemotherapy Drug: Use appropriate PPE. Antineoplastic Vesicant for concentrations greater than 0.4 mg/mL - Antineoplastic Irritant for concentrations less than 0.4 mg/mL. Protect from Light. Start: 04-16-2025 End: 04-16-2025 45.5 mg (25 mg/m2 1.82 m2 Tr eatment Plan BSA from Recorded weight), INTRAVENOUS, Administer over 1 Hours, ONCE, 1 dose, On Tue04/16/25 at 1300, exp 1600 04/17/25 (room temp) Hazardous Chemotherapy Drug: Use appropriate PPE. Antineoplastic Vesicant for concentrations greater than 0.4 mg/mL - Antineoplastic Irritant for concentrations less than 0.4 mg/mL. Protect from Light. Start: 04-02-2025 End: 04-02-2025 45.5 mg (25 mg/m2 1.82 m2 Tr eatment Plan BSA from Recorded weight), INTRAVENOUS, Administer over 1 Hours, ONCE, 1 dose, On Tue04/02/25 at 1200, exp 1600 04/03/25 (room temp) Hazardous Chemotherapy Drug: Use appropriate PPE. Antineoplastic Vesicant for concentrations greater than 0.4 mg/mL - Antineoplastic Irritant for concentrations less than 0.4 mg/mL. Protect from Light. Start: 03-26-2025 End: 03-26-2025 45.5 mg (25 mg/m2 1.82 m2 Tr eatment Plan BSA from Recorded weight), INTRAVENOUS, Administer over 1 Hours, ONCE, 1 dose, On Tue03/26/25 at 1300, exp 1600 03/27/25 (room temp) Hazardous Chemotherapy Drug: Use appropriate PPE. Antineoplastic Vesicant for concentrations greater than 0.4 mg/mL - Antineoplastic Irritant for concentrations less than 0.4 mg/mL. Protect from Light. Start: 02-26-2025 End: 02-26-2025 45.5 mg (25 mg/m2 1.82 m2 Tr eatment Plan BSA from Recorded weight), INTRAVENOUS, Administer over 1 Hours, ONCE, 1 dose, On Tue02/26/25 at 1100, exp 1500 02/27/25 (room temp) Hazardous Chemotherapy Drug: Use appropriate PPE. Antineoplastic Vesicant for concentrations greater than 0.4 mg/mL - Antineoplastic Irritant for concentrations less than 0.4 mg/mL. Protect from Light. Start: 02-14-2025 End: 02-14-2025 45.5 mg (25 mg/m2 1.82 m2 Tr eatment Plan BSA from Recorded weight), INTRAVENOUS, Administer over 1 Hours, ONCE, 1 dose, On Saida 02/14/25 at 1100, exp 1600 02/15/25 (room temp) Hazardous Chemotherapy Drug: Use appropriate PPE. Antineoplastic Vesicant for concentrations greater than 0.4 mg/mL - Antineoplastic Irritant for concentrations less than 0.4 mg/mL. Protect from Light. Start: 01-23-2025 End: 01-23-2025 45.5 mg (25 mg/m2 1.82 m2 Tr eatment Plan BSA from Recorded weight), INTRAVENOUS, Administer over 1 Hours, ONCE, 1 dose, On Tue01/23/25 at 1030, exp 1500 01/24/25 (room temp) Hazardous Chemotherapy Drug: Use appropriate PPE. Antineoplastic Vesicant for concentrations greater than 0.4 mg/mL - Antineoplastic Irritant for concentrations less than 0.4 mg/mL. Protect from Light. Start: 01-15-2025 End: 01-15-2025 45.5 mg (25 mg/m2 1.82 m2 Tr eatment Plan BSA from Recorded weight), INTRAVENOUS, Administer over 1 Hours, ONCE, 1 dose, On Tue01/15/25 at 1300, Approx Total Volume - Expires: 01/16/25 @ 1600 Hazardous Chemotherapy Drug: Use appropriate PPE. Antineoplastic Vesicant for concentrations greater than 0.4 mg/mL - Antineoplastic Irritant for concentrations less than 0.4 mg/mL. Protect from Light. 1 ml dexamethasone phosphate 10 mg/ml injection (11 sources) Corticosteroid Start: 06-11-2025 End: 06-11-2025 10 mg, INTRAVENOUS, ONCE, 1 dose, On Tue06/11/25 at 0930, Administer IV doses up to 10 mg over 5 minutes. Administer doses > 10 mg over 15 to 30 minutes. Start: 05-28-2025 End: 05-28-2025 10 mg, INTRAVENOUS, ONCE, 1 dose, On Tue05/28/25 at 0800, Administer IV doses up to 10 mg over 5 minutes. Administer doses > 10 mg over 15 to 30 minutes. Start: 05-07-2025 End: 05-07-2025 10 mg, INTRAVENOUS, ONCE, 1 dose, On Tue05/07/25 at 0800, Administer IV doses up to 10 mg over 5 minutes. Administer doses > 10 mg over 15 to 30 minutes. Start: 04-23-2025 End: 04-23-2025 10 mg, INTRAVENOUS, ONCE, 1 dose, On Tue04/23/25 at 0900, Administer IV doses up to 10 mg over 5 minutes. Administer doses > 10 mg over 15 to 30 minutes. Start: 04-16-2025 End: 04-16-2025 10 mg, INTRAVENOUS, ONCE, 1 dose, On Tue04/16/25 at 1000, Administer IV doses up to 10 mg over 5 minutes. Administer doses > 10 mg over 15 to 30 minutes. Start: 04-02-2025 End: 04-02-2025 10 mg, INTRAVENOUS, ONCE, 1 dose, On Tue04/02/25 at 0930, Administer over 5 minutes. Start: 03-26-2025 End: 03-26-2025 10 mg, INTRAVENOUS, ONCE, 1 dose, On Tue03/26/25 at 1000, Administer over 5 minutes. Start: 02-26-2025 End: 02-26-2025 10 mg, INTRAVENOUS, ONCE, 1 dose, On Tue02/26/25 at 0800, Administer over 5 minutes. Start: 02-14-2025 End: 02-14-2025 10 mg, INTRAVENOUS, ONCE, 1 dose, On Tue02/14/25 at 0900, Administer over 5 minutes. Start: 01-23-2025 End: 01-23-2025 10 mg, INTRAVENOUS, ONCE, 1 dose, On Tue01/23/25 at 0830, Administer over 5 minutes. Start: 01-15-2025 End: 01-15-2025 10 mg, INTRAVENOUS, ONCE, 1 dose, On Tue01/15/25 at 1000, Administer over 5 minutes. durvalumab 1,500 mg in NaCl 0.9% 305 mL (IMFINZI) (6 sources) Start: 05-28-2025 End: 05-28-2025 1,500 mg, INTRAVENOUS, Administer over 60 Minutes, ONCE, 1 dose, On Tu05/28/25 at 0930, exp 1600 05/28/25 (room temp) Administer with 0.2 micron filter. Start: 05-07-2025 End: 05-07-2025 1,500 mg, INTRAVENOUS, Admin ister over 60 Minutes, ONCE, 1 dose, On Tue05/07/25 at 0930, Expires: 05/07/25 @ 1610 Administer with 0.2 micron filter. Start: 04-16-2025 End: 04-16-2025 1,500 mg, INTRAVENOUS, Admin ister over 60 Minutes, ONCE, 1 dose, On Tue04/16/25 at 1130, exp 1800 04/16/25 (room temp). Administer with 0.2 micron filter. Start: 03-26-2025 End: 03-26-2025 1,500 mg, INTRAVENOUS, Admin ister over 60 Minutes, ONCE, 1 dose, On Tue03/26/25 at 1130, exp 1000 04/05/25 (refrigerated) Administer with 0.2 micron filter. Start: 02-26-2025 End: 02-26-2025 1,500 mg, INTRAVENOUS, Admin ister over 60 Minutes, ONCE, 1 dose, On Tue02/26/25 at 0930, exp 0900 03/08/25 (refrigerated) Administer with 0.2 micron filter. Start: 01-15-2025 End: 01-15-2025 1,500 mg, INTRAVENOUS, Admin ister over 60 Minutes, ONCE, 1 dose, On Tue01/15/25 at 1130, Approx Total Volume - Expires: 01/15/25 @ 1800 Administer with 0.2 micron filter. fosaprepitant 150 mg in NaCl 0.9% 250 mL (EMEND) (11 sources) Start: 06-11-2025 End: 06-11-2025 150 mg, INTRAVENOUS, Adminis ter over 30 Minutes, ONCE, 1 dose, On Tue06/11/25 at 0930, Approximate Total Volume = 280 mL Refrigerate Start: 05-28-2025 End: 05-28-2025 150 mg, INTRAVENOUS, Adminis ter over 30 Minutes, ONCE, 1 dose, On Tue05/28/25 at 0800, Approximate Total Volume = 280 mL Refrigerate Start: 05-07-2025 End: 05-07-2025 150 mg, INTRAVENOUS, Adminis ter over 30 Minutes, ONCE, 1 dose, On Tue05/07/25 at 0800, Approximate Total Volume = 280 mL Refrigerate Start: 04-23-2025 End: 04-23-2025 150 mg, INTRAVENOUS, Adminis ter over 30 Minutes, ONCE, 1 dose, On Tue04/23/25 at 0900, Approximate Total Volume = 280 mL Refrigerate Start: 04-16-2025 End: 04-16-2025 150 mg, INTRAVENOUS, Adminis ter over 30 Minutes, ONCE, 1 dose, On Tue04/16/25 at 1000, Approximate Total Volume = 280 mL Refrigerate Start: 04-02-2025 End: 04-02-2025 150 mg, INTRAVENOUS, Adminis ter over 30 Minutes, ONCE, 1 dose, On Tue04/02/25 at 0930, Approximate Total Volume = 280 mL Refrigerate Start: 03-26-2025 End: 03-26-2025 150 mg, INTRAVENOUS, Adminis ter over 30 Minutes, ONCE, 1 dose, On Tue03/26/25 at 1000, Approximate Total Volume = 280 mL Refrigerate Start: 02-26-2025 End: 02-26-2025 150 mg, INTRAVENOUS, Adminis ter over 30 Minutes, ONCE, 1 dose, On Tue02/26/25 at 0800, Approximate Total Volume = 280 mL Refrigerate Start: 02-14-2025 End: 02-14-2025 150 mg, INTRAVENOUS, Adminis ter over 30 Minutes, ONCE, 1 dose, On Tue02/14/25 at 0900, Approximate Total Volume = 280 mL Refrigerate Start: 01-23-2025 End: 01-23-2025 150 mg, INTRAVENOUS, Adminis ter over 30 Minutes, ONCE, 1 dose, On Tue01/23/25 at 0830, Approximate Total Volume = 280 mL Refrigerate Start: 01-15-2025 End: 01-15-2025 150 mg, INTRAVENOUS, Adminis ter over 30 Minutes, ONCE, 1 dose, On Tue01/15/25 at 1000, Refrigerate gemcitabine 1,092 mg in NaCl 0.9% 303.7196 mL (GEMZAR) (6 sources) Start: 06-11-2025 End: 06-11-2025 1,092 mg (600 mg/m2 1.82 m2 Treatment Plan BSA from Recorded weight), INTRAVENOUS, Administer over 30 Minutes, ONCE, 1 dose, On Tue06/11/25 at 1100, EXP: 06/15/25 @0930 RT Hazardous Chemotherapy Drug: Use appropriate PPE. Antineoplastic Irritant. Start: 05-28-2025 End: 05-28-2025 1,092 mg (600 mg/m2 1.82 m2 Treatment Plan BSA from Recorded weight), INTRAVENOUS, Administer over 30 Minutes, ONCE, 1 dose, On Tue05/28/25 at 1030, exp 1400 05/31/25 (room temp) Hazardous Chemotherapy Drug: Use appropriate PPE. Antineoplastic Irritant. Start: 04-23-2025 End: 04-23-2025 1,092 mg (600 mg/m2 1.82 m2 Treatment Plan BSA from Recorded weight), INTRAVENOUS, Administer over 30 Minutes, ONCE, 1 dose, On Tue04/23/25 at 1030, EXP: 04/27/25 @ 09:15 (room temperature) Hazardous Chemotherapy Drug: Use appropriate PPE. Antineoplastic Irritant. Start: 04-16-2025 End: 04-16-2025 1,092 mg (600 mg/m2 1.82 m2 Treatment Plan BSA from Recorded weight), INTRAVENOUS, Administer over 30 Minutes, ONCE, 1 dose, On Tue04/16/25 at 1230, exp 1600 04/17/25 (room temp) Hazardous Chemotherapy Drug: Use appropriate PPE. Antineoplastic Irritant. Start: 04-02-2025 End: 04-02-2025 1,092 mg (600 mg/m2 1.82 m2 Treatment Plan BSA from Recorded weight), INTRAVENOUS, Administer over 30 Minutes, ONCE, 1 dose, On Tue04/02/25 at 1100, exp 1600 04/03/25 (room temp) Hazardous Chemotherapy Drug: Use appropriate PPE. Antineoplastic Irritant. Start: 03-26-2025 End: 03-26-2025 1,092 mg (600 mg/m2 1.82 m2 Treatment Plan BSA from Recorded weight), INTRAVENOUS, Administer over 30 Minutes, ONCE, 1 dose, On Tue03/26/25 at 1230, exp 1600 03/27/25 (room temp) Hazardous Chemotherapy Drug: Use appropriate PPE. Antineoplastic Irritant. gemcitabine 1,456 mg in NaCl 0.9% 313.2928 mL (GEMZAR) (2 sources) Start: 02-26-2025 End: 02-26-2025 1,456 mg (800 mg/m2 1.82 m2 Treatment Plan BSA from Recorded weight), INTRAVENOUS, Administer over 30 Minutes, ONCE, 1 dose, On Tue02/26/25 at 1030, exp 1500 02/27/25 (room temp) Hazardous Chemotherapy Drug: Use appropriate PPE. Antineoplastic Irritant. Start: 02-14-2025 End: 02-14-2025 1,456 mg (800 mg/m2 1.82 m2 Treatment Plan BSA from Recorded weight), INTRAVENOUS, Administer over 30 Minutes, ONCE, 1 dose, On Tue02/14/25 at 1030, Approx Total Volume - Expires: 02/15/25 @ 1510 Hazardous Chemotherapy Drug: Use appropriate PPE. Antineoplastic Irritant. gemcitabine 1,800 mg in NaCl 0.9% 322.34 mL (GEMZAR) (2 sources) Start: 01-23-2025 End: 01-23-2025 1,800 mg (rounded from 1,820 mg = 1,000 mg/m2 1.82 m2 Treatment Plan BSA from Recorded weight), INTRAVENOUS, Administer over 30 Minutes, ONCE, 1 dose, On Tue01/23/25 at 1000, exp 1500 01/24/25 (room temp) Hazardous Chemotherapy Drug: Use appropriate PPE. Antineoplastic Irritant. Start: 01-15-2025 End: 01-15-2025 1,800 mg (rounded from 1,820 mg = 1,000 mg/m2 1.82 m2 Treatment Plan BSA from Recorded weight), INTRAVENOUS, Administer over 30 Minutes, ONCE, 1 dose, On Tue01/15/25 at 1230, Approx Total Volume - Expires: 01/16/25 @ 1600 Hazardous Chemotherapy Drug: Use appropriate PPE. Antineoplastic Irritant. Geriatric Ymkcyfjx-Exuy-Zwkm tablet (4 sources) Start: 12-12-2024 End: 06-24-2025 Geriatric Ulyhjfue-Rtkc-Qgfa tablet Discontinued 1 {tbl} PO daily December 12, 2024 1:00am June 24, 2025 10:27am Start: 12-12-2024 Geriatric Mult cigf-Lzov-Uvvg tablet Active 1 {tbl} PO daily December 12, 2024 1:00am hydrOXYzine hydrochloride 25 mg oral tablet (4 sources) Antihistamine Start: 06-11-2025 End: 06-24-2025 take 1 tablet by mouth three times daily as needed Hydroxyzine Hcl 25 mg tablet Discontinued 25 mg PO 3 TIMES DAILY NEEDED as needed for itch June 24, 2025 12:00am June 24, 2025 10:27am indomethacin 50 mg rectal suppository (1 source) Nonsteroidal Anti-inflammatory Drug Start: 05-16-2025 End: 05-16-2025 100 mg, RECTAL, DIRECTED, Starting on Tue05/16/25 at 0900, Until Tue05/16/25 at 1259, Dosing as directed for intraprocedural use only REFRIGERATE, Intraprocedure Mhustb-Muzrwsxr-Vxa lase (Creon) 6,000-19,000 -30,000 unit capsule,delayed release(DR/EC) (4 sources) Start: 10-19-2024 End: 11-17-2024 take [id number] capsules by mouth every six hours Btjifm-Mmlkdhfr-Nujb ase (Creon) 6,000-19,000 -30,000 unit capsule,delayed release(DR/EC) Discontinued 4 NMA PO EVERY 6 HOURS October 19, 2024 1:00am November 17, 2024 10:06pm lisinopril 10 mg oral tablet (4 sources) Angiotensin Converting Enzyme Inhibitor Start: 11-23-2017 End: 09-25-2019 take 1 tablet by mouth once daily Lisinopril 10 MG tablet Discontinued 10 mg PO DAILY November 23, 2017 1:00am September 25, 2019 2:16pm BP ofloxacin 3 mg/ml ophthalmic solution (2 sources) Quinolone Antimicrobial Start: 06-24-2025 End: 06-24-2025 take 0.3 drop(s) into the eye(s) four times daily Ofloxacin 0.3 % drops Discontinued 1 NMA LEFT EYE 4 TIMES DAILY June 24, 2025 12:00am June 24, 2025 10:27am 2 ml ondansetron 2 mg/ml injection (2 sources) Serotonin-3 Receptor Antagonist Start: 12-05-2024 End: 12-05-2024 4 mg, IntraVENous, Once PRN, nausea, vomiting, Starting on Tue12/05/24 at 1054, For 1 dose, Preprocedure oxyCODONE hydrochloride 5 mg oral tablet (4 sources) Opioid Agonist Start: 12-25-2024 End: 06-24-2025 take 5-10 mg by mouth every six hours as needed for pain Oxycodone 5 mg tablet Discontinued 5 - 10 mg PO EVERY 6 HOURS as needed for pain 20 5 0 December 25, 2024 June 24, 2025 9:44am History of biliary duct stent placement Other specified postprocedural states 5 ml palonosetron 0.05 mg/ml injection (11 sources) Serotonin-3 Receptor Antagonist Start: 06-11-2025 End: 06-11-2025 0.25 mg, INTRAVENOUS, ONCE, 1 dose, On 06/11/25 at 0930, Flush IV line with NS prior to and following administration. Start: 05-28-2025 End: 05-28-2025 0.25 mg, INTRAVENOUS, ONCE, 1 dose, On 05/28/25 at 0800, Flush IV line with NS prior to and following administration. Start: 05-07-2025 End: 05-07-2025 0.25 mg, INTRAVENOUS, ONCE, 1 dose, On Tu05/07/25 at 0800, Flush IV line with NS prior to and following administration. Start: 04-23-2025 End: 04-23-2025 0.25 mg, INTRAVENOUS, ONCE, 1 dose, On 04/23/25 at 0900, Flush IV line with NS prior to and following administration. Start: 04-16-2025 End: 04-16-2025 0.25 mg, INTRAVENOUS, ONCE, 1 dose, On Tu04/16/25 at 1000, Flush IV line with NS prior to and following administration. Start: 04-02-2025 End: 04-02-2025 0.25 mg, INTRAVENOUS, ONCE, 1 dose, On Tu04/02/25 at 0930, Flush IV line with NS prior to and following administration. Start: 03-26-2025 End: 03-26-2025 0.25 mg, INTRAVENOUS, ONCE, 1 dose, On Tu03/26/25 at 1000, Flush IV line with NS prior to and following administration. Start: 02-26-2025 End: 02-26-2025 0.25 mg, INTRAVENOUS, ONCE, 1 dose, On Tue02/26/25 at 0800, Flush IV line with NS prior to and following administration. Start: 02-14-2025 End: 02-14-2025 0.25 mg, INTRAVENOUS, ONCE, 1 dose, On Tue02/14/25 at 0900, Flush IV line with NS prior to and following administration. Start: 01-23-2025 End: 01-23-2025 0.25 mg, INTRAVENOUS, ONCE, 1 dose, On Tue01/23/25 at 0830, Flush IV line with NS prior to and following administration. Start: 01-15-2025 End: 01-15-2025 0.25 mg, INTRAVENOUS, ONCE, 1 dose, On Tue01/15/25 at 1000, Flush IV line with NS prior to and following administration. pantoprazole 40 mg delayed release oral tablet (4 sources) Proton Pump Inhibitor Start: 11-20-2024 End: 12-12-2024 take 1 tablet by mouth once daily Pantoprazole (Protonix) 40 mg tablet,delayed release (DR/EC) Discontinued 40 mg PO DAILY 30 0 November 20, 2024 1:00am December 12, 2024 2:44pm 0.6 ml pegfilgrastim 10 mg/ml prefilled syringe (3 sources) Leukocyte Growth Factor Start: 06-11-2025 End: 06-11-2025 6 mg, SUBCUTANEOUS, ONCE, 1 dose, On Tue06/11/25 at 0930, In order to administer the on-body injector, the device needs to be loaded with the drug by a medical professional. Once loaded, the medical professional has 3 minutes to apply the device to the patient. At that time, a cannula is inserted into the patient and an indicator light will flash a slow-green light which will indicate a functioning device. The device administers the drug to the patient 27 hours after it is applied and drug is delivered over 45 minutes. At the conclusion of the administration, the indicator light will turn to a solid green at which time the device can safely be removed by the patient. If the device fails, the indicator light will turn red. Refrigerate Start: 04-23-2025 End: 04-23-2025 6 mg, SUBCUTANEOUS, ONCE, 1 dose, On Tue04/23/25 at 0900, In order to administer the on-body injector, the device needs to be loaded with the drug by a medical professional. Once loaded, the medical professional has 3 minutes to apply the device to the patient. At that time, a cannula is inserted into the patient and an indicator light will flash a slow-green light which will indicate a functioning device. The device administers the drug to the patient 27 hours after it is applied and drug is delivered over 45 minutes. At the conclusion of the administration, the indicator light will turn to a solid green at which time the device can safely be removed by the patient. If the device fails, the indicator light will turn red. Refrigerate Start: 04-02-2025 End: 04-02-2025 6 mg, SUBCUTANEOUS, ONCE, 1 dose, On Tue04/02/25 at 0930, In order to administer the on-body injector, the device needs to be loaded with the drug by a medical professional. Once loaded, the medical professional has 3 minutes to apply the device to the patient. At that time, a cannula is inserted into the patient and an indicator light will flash a slow-green light which will indicate a functioning device. The device administers the drug to the patient 27 hours after it is applied and drug is delivered over 45 minutes. At the conclusion of the administration, the indicator light will turn to a solid green at which time the device can safely be removed by the patient. If the device fails, the indicator light will turn red. Refrigerate raNITIdine 150 mg oral tablet (4 sources) Histamine-2 Receptor Antagonist Start: 11-23-2017 End: 09-25-2019 Ranitidine Hcl 150 MG tablet Discontinued 150 mg PO NEEDED as needed for REFLUX November 23, 2017 1:00am September 25, 2019 2:16pm 1000 ml sodium chloride 9 mg/ml injection (20 sources) Start: 06-11-2025 End: 06-11-2025 999 mL/hr, INTRAVENOUS, Administer over 1 Hours, ONCE, 1 dose, On Tue06/11/25 at 1230, Give after chemotherapy. Start: 06-11-2025 End: 06-11-2025 1,000 mL, INTRAVENOUS, at 99 9 mL/hr, Administer over 1 Hours, ONCE, 1 dose, On Tue06/11/25 at 1000, Administer prior to chemotherapy. Start: 05-28-2025 End: 05-28-2025 999 mL/hr, INTRAVENOUS, Administer over 1 Hours, ONCE, 1 dose, On Tue05/28/25 at 1200, Give after chemotherapy. Start: 05-28-2025 End: 05-28-2025 1,000 mL, INTRAVENOUS, at 99 9 mL/hr, Administer over 1 Hours, ONCE, 1 dose, On Tue05/28/25 at 0830, Administer prior to chemotherapy. Start: 05-07-2025 End: 05-07-2025 999 mL/hr, INTRAVENOUS, Administer over 1 Hours, ONCE, 1 dose, On Tue05/07/25 at 1200, Give after chemotherapy. Start: 05-07-2025 End: 05-07-2025 1,000 mL, INTRAVENOUS, at 99 9 mL/hr, Administer over 1 Hours, ONCE, 1 dose, On Tue05/07/25 at 0830, Administer prior to chemotherapy. Start: 04-23-2025 End: 04-23-2025 999 mL/hr, INTRAVENOUS, Administer over 1 Hours, ONCE, 1 dose, On Tue04/23/25 at 1200, Give after chemotherapy. Start: 04-23-2025 End: 04-23-2025 1,000 mL, INTRAVENOUS, at 99 9 mL/hr, Administer over 1 Hours, ONCE, 1 dose, On Tue04/23/25 at 0930, Administer prior to chemotherapy. Start: 04-16-2025 End: 04-16-2025 999 mL/hr, INTRAVENOUS, Administer over 1 Hours, ONCE, 1 dose, On Tue04/16/25 at 1400, Give after chemotherapy. Start: 04-16-2025 End: 04-16-2025 1,000 mL, INTRAVENOUS, at 99 9 mL/hr, Administer over 1 Hours, ONCE, 1 dose, On Tue04/16/25 at 1030, Administer prior to chemotherapy. Start: 04-02-2025 End: 04-02-2025 999 mL/hr, INTRAVENOUS, Administer over 1 Hours, ONCE, 1 dose, On Tue04/02/25 at 1230, Give after chemotherapy. Start: 04-02-2025 End: 04-02-2025 1,000 mL, INTRAVENOUS, at 99 9 mL/hr, Administer over 1 Hours, ONCE, 1 dose, On Tue04/02/25 at 1000, Administer prior to chemotherapy. Start: 03-26-2025 End: 03-26-2025 999 mL/hr, INTRAVENOUS, Administer over 1 Hours, ONCE, 1 dose, On Tue03/26/25 at 1400, Give after chemotherapy. Start: 03-26-2025 End: 03-26-2025 1,000 mL, INTRAVENOUS, at 99 9 mL/hr, Administer over 1 Hours, ONCE, 1 dose, On Tue03/26/25 at 1030, Administer prior to chemotherapy. Start: 02-26-2025 End: 02-26-2025 999 mL/hr, INTRAVENOUS, Administer over 1 Hours, ONCE, 1 dose, On Tue02/26/25 at 1200, Give after chemotherapy. Start: 02-26-2025 End: 02-26-2025 1,000 mL, INTRAVENOUS, at 99 9 mL/hr, Administer over 1 Hours, ONCE, 1 dose, On Tue02/26/25 at 0830, Administer prior to chemotherapy. Start: 02-14-2025 End: 02-14-2025 999 mL/hr, INTRAVENOUS, Administer over 1 Hours, ONCE, 1 dose, On Tue02/14/25 at 1200, Give after chemotherapy. Start: 02-14-2025 End: 02-14-2025 1,000 mL, INTRAVENOUS, at 99 9 mL/hr, Administer over 1 Hours, ONCE, 1 dose, On Tue02/14/25 at 0930, Administer prior to chemotherapy. Start: 01-23-2025 End: 01-23-2025 999 mL/hr, INTRAVENOUS, Administer over 1 Hours, ONCE, 1 dose, On Tue01/23/25 at 1130, Give after chemotherapy. Start: 01-23-2025 End: 01-23-2025 1,000 mL, INTRAVENOUS, at 99 9 mL/hr, Administer over 1 Hours, ONCE, 1 dose, On Tue01/23/25 at 0900, Administer prior to chemotherapy. Start: 01-15-2025 End: 01-15-2025 999 mL/hr, INTRAVENOUS, Administer over 1 Hours, ONCE, 1 dose, On Tue01/15/25 at 1400, Give after chemotherapy. Start: 01-15-2025 End: 01-15-2025 1,000 mL, INTRAVENOUS, at 99 9 mL/hr, Administer over 1 Hours, ONCE, 1 dose, On Tue01/15/25 at 1030, Administer prior to chemotherapy. Start: 12-05-2024 End: 12-05-2024 10 mL, IntraVENous, Every 12 hours scheduled (2 times per day), First dose on Tue12/05/24 at 1100, Preprocedure Start: 12-05-2024 End: 12-05-2024 take 100 mL intravenously every hour as needed, then take 20 mL intravenously every hour as needed 5-250 mL/hr, IntraVENous, PRN, if patient receiving piggyback infusions and maintenance fluids are not ordered OR KVO fluids to protect IV site / prevent frequent line interruptions/ long duration, Starting on Tue12/05/24 at 1054, Preprocedure, For piggyback infusion, administer at same rate as piggyback for a total of 25 mL. Enter 25 mL into dose field and piggyback rate into rate field of order. If piggyback is infusing at a rate less than 100 mL/hr, enter 25 mL into dose field and 100 mL/hr into rate field of order. For KVO fluids, enter rate of 20 mL/hr or less into rate field of order. Start: 12-05-2024 End: 12-05-2024 take 10 mL intravenously once as needed 10 mL, IntraVENous, PRN, line care, Starting on Tue12/05/24 at 1054, Preprocedure, After every IV line use Problems Active Problems Problem Classification Problem Date Documented Date Episodic/Chronic Abdominal pain (16 sources) Generalized abdominal pain; Translations: [Generalized abdominal pain] Onset: 5 10-08-2024 Episodic Biliary tract disease (20 sources) Obstruction of bile duct; Translations: [Obstruction of bile duct] Onset: 5 12-05-2024 Chronic Biliary tract disease (15 sources) Common bile duct calculus; Translations: [Calculus of bile duct without cholangitis or cholecystitis without obstruction] Onset: 5 11-01-2024 Episodic Cancer of liver and intrahepatic bile duct (20 sources) Cholangiocarcinoma of biliary tract; 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] Onset: 5 12-31-2024 Chronic Complications of surgical procedures or medical care (1 source) Anemia due to antineoplastic chemotherapy; Translations: [Anemia due to antineoplastic chemotherapy] Onset: 5 Chronic Deficiency and other anemia (2 sources) Anemia; Translations: [Anemia, unspecified] 06-24-2025 Episodic Diabetes mellitus without complication (20 sources) Impaired fasting glycemia; Translations: [Impaired fasting glucose] Onset: 3 Resolved: 7 Episodic Disorders of lipid metabolism (20 sources) Mixed hyperlipidemia; Translations: [Mixed hyperlipidemia] Onset: 6 Resolved: 7 Chronic Diverticulosis and diverticulitis (4 sources) Diverticular disease; Translations: [Diverticulosis of intestine, part unspecified, without perforation or abscess without bleeding] 09-25-2019 Chronic Esophageal disorders (20 sources) Gastroesophageal reflux disease; Translations: [Gastro-esophageal reflux disease without esophagitis] Onset: 9 10-25-2016 Chronic Essential hypertension (20 sources) Essential hypertension; Translations: [Essential (primary) hypertension] Resolved: 7 Chronic Fever of unknown origin (5 sources) Fever; Translations: [Fever, unspecified] 11-28-2024 Episodic Fluid and electrolyte disorders (9 sources) Lactic acidosis; Translations: [Lactic acidosis] 11-28-2024 Episodic Genitourinary symptoms and ill-defined conditions (20 sources) Nocturia; Translations: [Nocturia] 02-03-2007 Episodic Hemorrhoids (4 sources) Internal hemorrhoids; Translations: [Other hemorrhoids] 09-25-2019 Episodic Malaise and fatigue (3 sources) Malaise and fatigue; Translations: [Other malaise] Onset: 5 12-31-2024 Episodic Malignant neoplasm without specification of site (5 sources) Carcinomatosis; 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, unspecified] 12-25-2024 Chronic Nutritional deficiencies (2 sources) Vitamin D deficiency; Translations: [Vitamin D deficiency, unspecified] Onset: 5 12-10-2024 Chronic Other circulatory disease (2 sources) Low blood pressure; Translations: [Hypotension, unspecified] 06-24-2025 Episodic Other connective tissue disease (1 source) Other specified soft tissue disorders; Translations: [Right leg swelling] Onset: 5 Episodic Other gastrointestinal disorders (1 source) Diarrhea; Translations: [Diarrhea, unspecified] 10-08-2024 Episodic Other gastrointestinal disorders (2 sources) Altered bowel function; Translations: [Other specified symptoms and signs involving the digestive system and abdomen] 12-10-2024 Episodic Other gastrointestinal disorders (5 sources) Change in stool caliber; Translations: [Other fecal abnormalities] 12-12-2024 Episodic Other gastrointestinal disorders (2 sources) Occult blood in stools; Translations: [Other fecal abnormalities] 06-24-2025 Episodic Other liver diseases (5 sources) Inflammatory disease of liver; Translations: [Inflammatory liver disease, unspecified] 11-28-2024 Chronic Other liver diseases (1 source) Inflammatory liver disease, unspecified; Translations: [Inflammatory liver disease, unspecified] Onset: 5 Chronic Other liver diseases (5 sources) Enzyme level - finding; Translations: [Elevated transaminase measurement] 11-18-2024 Episodic Other liver diseases (7 sources) Jaundice; Translations: [Unspecified jaundice] 11-28-2024 Episodic Other lower respiratory disease (5 sources) Respiratory insufficiency; Translations: [Other abnormalities of breathing] 11-28-2024 Episodic Other male genital disorders (4 sources) Male erectile dysfunction, unspecified; Translations: [Erectile dysfunction] 09-25-2019 Chronic Other nervous system disorders (5 sources) Metabolic encephalopathy; Translations: [Metabolic encephalopathy] 11-28-2024 Chronic Other nervous system disorders (1 source) Metabolic encephalopathy; Translations: [Metabolic encephalopathy] Onset: 5 Chronic Other nutritional; endocrine; and metabolic disorders (20 sources) Metabolic syndrome X; Translations: [Metabolic syndrome] Onset: 3 04-15-2013 Chronic Other nutritional; endocrine; and metabolic disorders (5 sources) Hyperbilirubinemia; Translations: [Other disorders of bilirubin metabolism] 11-18-2024 Chronic Other nutritional; endocrine; and metabolic disorders (2 sources) Hypomagnesemia; Translations: [Hypomagnesemia] 06-24-2025 Chronic Other nutritional; endocrine; and metabolic disorders (1 source) Other disorders of bilirubin metabolism; Translations: [Other disorders of bilirubin metabolism] Onset: 5 Chronic Other nutritional; endocrine; and metabolic disorders (2 sources) Loss of appetite; Translations: [Anorexia] 06-24-2025 Episodic Other nutritional; endocrine; and metabolic disorders (1 source) Adult failure to thrive; Translations: [Adult failure to thrive] Onset: 5 Episodic Other nutritional; endocrine; and metabolic disorders (2 sources) Adult failure to thrive syndrome; Translations: [Adult failure to thrive] 06-24-2025 Episodic Pancreatic disorders (not diabetes) (7 sources) Pancreatic insufficiency; Translations: [Other specified diseases of pancreas] Onset: 5 10-12-2024 Episodic Residual codes; unclassified (6 sources) Past history of procedure; Translations: [Other specified postprocedural states] 11-18-2024 Episodic Residual codes; unclassified (4 sources) History of hydrocelectomy; Translations: [Other specified postprocedural states] 09-25-2019 Episodic Comment on above: 1998 Residual codes; unclassified (4 sources) History of colonoscopy; Translations: [Other specified postprocedural states] 09-25-2019 Episodic Residual codes; unclassified (2 sources) Bilateral lower limb edema; Translations: [Localized edema] 05-06-2025 Episodic Residual codes; unclassified (2 sources) Edema of lower extremity; Translations: [Localized edema] 06-04-2025 Episodic Residual codes; unclassified (1 source) Localized edema; Translations: [Bilateral leg edema] Onset: 5 Episodic Septicemia (except in labor) (12 sources) Sepsis; Translations: [Sepsis, unspecified organism] Onset: 5 11-28-2024 Episodic Spondylosis; intervertebral disc disorders; other back problems (20 sources) Lumbar spondylosis; Translations: [Spondylosis without myelopathy or radiculopathy, lumbar region] Onset: 5 05-19-2015 Chronic Syncope (2 sources) Near syncope; Translations: [Syncope and collapse] 06-24-2025 Episodic Thyroid disorders (20 sources) Acquired hypothyroidism; Translations: [Hypothyroidism, unspecified] Onset: 6 Resolved: 7 Chronic Unclassified (1 source) K83.1 - Obstruction of bile duct,K80.50 - Calculus of bile duct without cholangitis or cholecystitis without obstruction Unclassified (1 source) Call to schedule an appointment Unclassified (1 source) On antineoplastic chemotherapy; Translations: [On antineoplastic chemotherapy] Onset: 5 Unclassified (1 source) Chemotherapy Treatment Onset: 5 Unclassified (1 source) Acidosis, unspecified; Translations: [Acidosis, unspecified] Onset: 5 Unclassified (1 source) Elevation of levels of liver transaminase levels; Translations: [Elevation of levels of liver transaminase levels] Onset: 5 Past or Other Problems Problem Classification Problem Date Documented Da te Episodic/Chronic Abdominal hernia (20 sources) Right inguinal hernia ; Translations: [Unilateral inguinal hernia, without obstruction or gangrene, not specified as recurrent] Onset: 11-07-2019 11-07-2019 Episodic Inflammatory conditions of male genital organs (20 sources) Prostatitis; Translations: [Inflammatory disease of prostate, unspecified] Onset: 05-29-2007 05-29-2007 Episodic Nutritional deficiencies (2 sources) Cobalamin deficiency; Translations: [Deficiency of other specified B group vitamins] Onset: 12-10-2024 12-10-2024 Episodic Other aftercare (20 sources) Patient encounter status; Translations: [Other fdc (current) drug therapy] Onset: 04-17-2014 Resolved: 04-20-2016 04-20-2016 Episodic Other connective tissue disease (20 sources) Nontraumatic complete rupture of rotator cuff of right shoulder; Translations: [Complete rotator cuff tear or rupture of right shoulder, not specified as traumatic] Onset: 11-29-2022 Episodic Other connective tissue disease (20 sources) Postexertional fatigue; Translations: [Other specified disorders of muscle] Onset: 05-19-2015 05-19-2015 Episodic Other gastrointestinal disorders (1 source) Other specified symptoms and signs involving the digestive system and abdomen; Translations: [Altered bowel function] Onset: 12-10-2024 Episodic Other gastrointestinal disorders (1 source) Other fecal abnormalities; Translations: [Other fecal abnormalities] Onset: 12-24-2024 Episodic Other liver diseases (2 sources) Unspecified jaundice; Translations: [Unspecified jaundice] Onset: 11-13-2024 Episodic Other lower respiratory disease (1 source) Other abnormalities of breathing; Translations: [Other abnormalities of breathing] Onset: 11-30-2024 Episodic Other non-traumatic joint disorders (20 sources) Instability of right shoulder joint; Translations: [Other instability, right shoulder] Onset: 11-29-2022 Episodic Other non-traumatic joint disorders (20 sources) Chronic pain of right upper limb; Translations: [Pain in right shoulder] Onset: 11-29-2022 Episodic Other nutritional; endocrine; and metabolic disorders (20 sources) Body mass index 25-29 - overweight; Translations: [Overweight] Onset: 05-08-2019 05-08-2019 Episodic Other screening for suspected conditions (not mental disorders or infectious disease) (1 source) Encounter for screening for malignant neoplasm of prostate; Translations: [Screening for prostate cancer] Onset: 12-10-2024 Episodic Other skin disorders (20 sources) Actinic keratosis; Translations: [Actinic keratosis] Onset: 12-07-2023 12-07-2023 Episodic Residual codes; unclassified (1 source) Other specified postprocedural states; Translations: [Other specified postprocedural states] Onset: 11-30-2024 Episodic Spondylosis; intervertebral disc disorders; other back problems (20 sources) Spinal stenosis of lumbar region; Translations: [Spinal stenosis, lumbar region with neurogenic claudication] Onset: 04-17-2014 Resolved: 04-20-2016 05-19-2015 Episodic Results Test Name Value Interpretation Reference Range Facility Anion gap in Serum or Plasma Ordered By: Bandar Salmeron on 06-25-2025 Anion gap [Moles/Vol] 16 mmol/L High 5-15 [facility] BUN/creatinine ratioOrdered By: Bandar Salmeron on 06-25-2025 Urea nitrogen/Creatinine [Mass ratio] 16.6 mg/mg 10-20 [facility] Bedside Glucoseon 06-25-2025 FINGERSTICK GLU 89 mg/dL Normal 74-106 [facility] Comment on above: Result Comment: NBA GEMENT OF PATIENT CARE PER NURSING PROTOCOL Performed By: #### L 501.080 ####[facility] [address] [place], [address] FINGERSTICK GLU 62 mg/dL Low 74-106 [facility] Comment on above: Result Comment: NBA GEMENT OF PATIENT CARE PER NURSING PROTOCOL Performed By: #### L 501.080 ####[facility] [address] [place], [address] Bilirubin, totalOrdered By: Bandar Salmeron on 06-25-2025 Bilirubin [Mass/Vol] 0.62 mg/dL 0.00-1.30 [facility] CBC-Complete Blood Cnt No Di ffon 06-25-2025 Erythrocyte distribution width (RBC) [Ratio] 14.1 % Normal 11.6-14.6 [facility] Comment on above: Performed By: #### L 100.0500, L500.4050 ####[facility] [address] [place], [address] Hematocrit (Bld) [Volume fraction] 23.9 % Low 40-54 [facility] Comment on above: Performed By: #### L 100.0500, L500.4050 ####[facility] [address] [place], [address] Hemoglobin (Bld) [Mass/Vol] 8.2 g/dL Low 13.0-16.5 [facility] Comment on above: Performed By: #### L 100.0500, L500.4050 ####[facility] [address] [place], [address] MCH (RBC) [Entitic mass] 34.2 pg High 27.0-32.0 [facility] Comment on above: Performed By: #### L 100.0500, L500.4050 ####[facility] [address] [place], [address] MCHC (RBC) [Mass/Vol] 34.3 g/dL Normal 32-36 [facility] Comment on above: Performed By: #### L 100.0500, L500.4050 ####[facility] [address] [place], [address] MCV (RBC) [Entitic vol] 99.6 fL High 80-94 [facility] Comment on above: Performed By: #### L 100.0500, L500.4050 ####[facility] [address] [place], [address] Platelet mean volume (Bld) [Entitic vol] 10.0 fL Normal 6.2-12.0 [facility] Comment on above: Performed By: #### L 100.0500, L500.4050 ####[facility] [address] [place], [address] Platelets (Bld) [#/Vol] 84 10*3/uL Low 150-450 [facility] Comment on above: Performed By: #### L 100.0500, L500.4050 ####[facility] [address] [place], [address] RBC (Bld) [#/Vol] 2.40 10*6/uL Low 4.6-6.2 [facility] Comment on above: Performed By: #### L 100.0500, L500.4050 ####[facility] [address] [place], [address] RDW SD 50.0 fl High 35.1-43.9 [facility] Comment on above: Performed By: #### L 100.0500, L500.4050 ####[facility] [address] [place], [address] WBC (Bld) [#/Vol] 5.8 10*3/uL Normal 4.4-11.0 [facility] Comment on above: Performed By: #### L 100.0500, L500.4050 ####[facility] [address] [place], [address] Carbon dioxide, total [Moles /volume] in Central venous bloodOrdered By: Bandar Salmeron on 06-25-2025 CO2 [Moles/Vol] 21.4 mmol/L 21.0-32.0 [facility] Chloride assayOrdered By: Evans Salmeron on 06-25-2025 Chloride [Moles/Vol] 98 mmol/L 98-108 [facility] Comprehensive Metabolic Prof ilon 06-25-2025 Albumin [Mass/Vol] 3.0 g/dL Low 3.4-4.8 [facility] Comment on above: Performed By: #### L 100.0500, L500.4050 ####[facility] [address] [place], [address] Albumin/Globulin [Mass ratio] 1.2 {ratio} Normal 0.9-2.4 [facility] Comment on above: Performed By: #### L 100.0500, L500.4050 ####[facility] [address] [place], [address] ALK PHOS 196 U/L High 40-129 [facility] Comment on above: Performed By: #### L 100.0500, L500.4050 ####[facility] [address] [place], [address] ALT [Catalytic activity/Vol] 15 U/L Normal <=46 [facility] Comment on above: Performed By: #### L 100.0500, L500.4050 ####[facility] [address] [place], [address] AST [Catalytic activity/Vol] 41 U/L High <=37 [facility] Comment on above: Performed By: #### L 100.0500, L500.4050 ####[facility] [address] [place], [address] Bilirubin [Mass/Vol] 0.62 mg/dL Normal 0.00-1.30 [facility] Comment on above: Performed By: #### L 100.0500, L500.4050 ####[facility] [address] [place], [address] BUN/CRE 16.6 RATIO Normal 10-20 [facility] Comment on above: Performed By: #### L 100.0500, L500.4050 ####[facility] [address] [place], [address] Calcium [Mass/Vol] 7.9 mg/dL Normal 7.6-11.0 [facility] Comment on above: Performed By: #### L 100.0500, L500.4050 ####[facility] [address] [place], [address] Chloride [Moles/Vol] 98 mmol/L Normal 98-108 [facility] Comment on above: Performed By: #### L 100.0500, L500.4050 ####[facility] [address] [place], [address] CO2 [Moles/Vol] 21.4 mmol/L Normal 21.0-32.0 [facility] Comment on above: Performed By: #### L 100.0500, L500.4050 ####[facility] [address] [place], [address] Creatinine [Mass/Vol] 1.07 mg/dL Normal 0.70-1.20 [facility] Comment on above: Performed By: #### L 100.0500, L500.4050 ####[facility] [address] [place], [address] ECRCL 51.77 ml/min Normal 50-250 [facility] Comment on above: Performed By: #### L 100.0500, L500.4050 ####[facility] [address] [place], [address] GAP 16 High 5-15 [facility] Comment on above: Performed By: #### L 100.0500, L500.4050 ####[facility] [address] [place], [address] GFR/1.73 sq M.predicted among non-blacks MDRD (S/P/Bld) [Vol rate/Area] 71 mL/min/{1.73_m2} Normal >60 [facility] Comment on above: Result Comment: mL/m in/1.73m2 CKD-EPI Creatinine Equation (2020) Performed By: #### L 100.0500, L500.4050 ####[facility] [address] [place], [address] Globulin (S) [Mass/Vol] 2.5 g/dL Normal 2.2-4.2 [facility] Comment on above: Performed By: #### L 100.0500, L500.4050 ####[facility] [address] [place], [address] Glucose [Mass/Vol] 39 mg/dL Invalid Interpretation Code 70-99 [facility] Comment on above: Result Comment: Crit ical Result(s) Called at: 0531 by: ANGUS KAMINSKI??Results read back by same. Performed By: #### L 100.0500, L500.4050 ####[facility] [address] [place], [address] Potassium [Moles/Vol] 3.4 mmol/L Normal 3.3-5.1 [facility] Comment on above: Performed By: #### L 100.0500, L500.4050 ####[facility] [address] [place], [address] Sodium [Moles/Vol] 135 mmol/L Normal 133-145 [facility] Comment on above: Performed By: #### L 100.0500, L500.4050 ####[facility] [address] [place], [address] T PROT 5.5 g/dL Low 5.9-8.4 [facility] Comment on above: Performed By: #### L 100.0500, L500.4050 ####[facility] [address] [place], [address] Urea nitrogen [Mass/Vol] 18 mg/dL Normal 4-19 [facility] Comment on above: Performed By: #### L 100.0500, L500.4050 ####[facility] [address] [place], [place], [address] Discharge Instructionon 090 Discharge Instruction Normal [facility] Erythrocyte distribution wid th ratioOrdered By: Bandar Salmeron on 06-25-2025 Erythrocyte distribution width (RBC) [Ratio] 14.1 % 11.6-14.6 [facility] Erythrocyte distribution wid th standard deviationOrdered By: Bandar Salmeron on 06-25-2025 Erythrocyte distribution width (RBC) [Ratio] 50.0 fl High 35.1-43.9 [facility] Glomerular filtration rate ( GFR) estimation/1.73 sq m using serum, plasma, or whole bOrdered By: Bandar Salmeron on 06-25-2025 GFR/1.73 sq M.predicted among non-blacks MDRD (S/P/Bld) [Vol rate/Area] 71 mL/min/{1.73_m2} >60 [facility] Comment on above: mL/min/1.73m2 CKD-EP I Creatinine Equation (2020) [facility]dered By: Bandar Salmeron on 06-25-2025 Glucose [Mass/Vol] 89 mg/dL 74-106 [facility] Comment on above: MANAGEMENT OF PATIEN T CARE PER NURSING PROTOCOL Hematocrit Auto (Bld) [Volum e fraction]Ordered By: Bandar Salmeron on 06-25-2025 Hematocrit (Bld) [Volume fraction] 23.9 % Low 40-54 [facility] Hemoglobin measurementOrdere d By: Bandar Salmeron on 06-25-2025 Hemoglobin (Bld) [Mass/Vol] 8.2 g/dL Low 13.0-16.5 [facility] Laboratory - Chemistry and C hemistry - challengeOrdered By: Bandar Salmeron on 06-25-2025 AST [Catalytic activity/Vol] 41 U/L High <38 [facility] MCV (mean corpuscular volume ) determinationOrdered By: Bandar Salmeron on 06-25-2025 MCV (RBC) [Entitic vol] 99.6 fL High 80-94 [facility] Mean corpuscular hemoglobin (MCH) determinationOrdered By: Bandar Salmeron on 06-25-2025 MCH (RBC) [Entitic mass] 34.2 pg High 27.0-32.0 [facility] Mean corpuscular hemoglobin concentration (MCHC) determinationOrdered By: Bandar Salmeron on 06-25-2025 MCHC (RBC) [Mass/Vol] 34.3 g/dL 32-36 [facility] Mean platelet volume determi nationOrdered By: Bandar Salmeron on 06-25-2025 Platelet mean volume (Bld) [Entitic vol] 10.0 fL 6.2-12.0 [facility] Platelet countOrdered By: Evans Salmeron on 06-25-2025 Platelets (Bld) [#/Vol] 84 10*3/uL Low 150-450 [facility] Potassium measurement (mass/ volume)Ordered By: Bandar Salmeron on 06-25-2025 Potassium (Unsp spec) [Mass/Vol] 3.4 mmol/L 3.3-5.1 [facility] RBC Auto (Bld) [#/Vol]Ordere d By: Bandar Salmeron on 06-25-2025 RBC (Bld) [#/Vol] 2.40 10*6/uL Low 4.6-6.2 [facility] Serum creatinine measurement (mass/volume)Ordered By: Bandar Salmeron on 06-25-2025 Creatinine [Mass/Vol] 1.07 mg/dL 0.70-1.20 [facility] Serum globulin measurementOr dered By: Bandar Salmeron on 06-25-2025 Globulin (S) [Mass/Vol] 2.5 g/dL 2.2-4.2 [facility] Serum glucose measurement (m ass/volume)Ordered By: Bandar Salmeron on 06-25-2025 Glucose [Mass/Vol] 39 mg/dL Low 70-99 [facility] Comment on above: Critical Result(s) C alled at: 0531 by: ANGUS VAZQUEZ TO REBEKAH CHRISTIAN Results read back by same. Serum or plasma alanine spangler otransferase (ALT) measurementOrdered By: Bandar Salmeron on 06-25-2025 ALT [Catalytic activity/Vol] 15 U/L <47 [facility] Serum or plasma albumin marques urement (mass/volume)Ordered By: Bandar Salmeron on 06-25-2025 Albumin [Mass/Vol] 3.0 g/dL Low 3.4-4.8 [facility] Serum or plasma albumin/glob ulin mass ratioOrdered By: Bandar Salmeron on 06-25-2025 Albumin/Globulin [Mass ratio] 1.2 {ratio} 0.9-2.4 [facility] Serum or plasma alkaline benji sphatase measurementOrdered By: Bandar Salmeron on 06-25-2025 ALP [Catalytic activity/Vol] 196 U/L High 40-129 [facility] Serum or plasma calcium marques urement (mass/volume)Ordered By: Bandar Salmeron on 06-25-2025 Calcium [Mass/Vol] 7.9 mg/dL 7.6-11.0 [facility] Serum or plasma urea nitroge n measurement (mass/volume)Ordered By: Bandar Salmeron on 06-25-2025 Urea nitrogen [Mass/Vol] 18 mg/dL 4-19 [facility] Sodium levelOrdered By: Barney Salmeron on 06-25-2025 Sodium [Moles/Vol] 135 mmol/L 133-145 [facility] Total proteinOrdered By: Moon Salmeron on 06-25-2025 Protein [Mass/Vol] 5.5 g/dL Low 5.9-8.4 [facility] White blood cell (WBC) count Ordered By: Bandar Salmeron on 06-25-2025 WBC (Bld) [#/Vol] 5.8 10*3/uL 4.4-11.0 [facility] Absolute lymphocyte countOrd ered By: Molly Lizarraga on 06-24-2025 Lymphocytes Auto (Unsp spec) [#/Vol] 0.96 10*3/uL 0.83-4.51 [facility] Absolute neutrophil countOrd ered By: Molly Lizarraga on 06-24-2025 Neutrophils (Bld) [#/Vol] 3.5 10*3/uL 2.0-7.7 [facility] Activated partial thrombopla stin time (aPTT) in platelet poor plasma by coagulation aOrdered By: Molly Lizarraga on 06-24-2025 aPTT Coag (PPP) [Time] 37.3 s High 24.1-36.2 [facility] Anion gap in Serum or Plasma Ordered By: Molly Lizarraga on 06-24-2025 Anion gap [Moles/Vol] 16 mmol/L High 5-15 [facility] Automated lymphocyte count a s percentage of total leukocytesOrdered By: Molly Lizarraga on 06-24-2025 Lymphocytes/100 WBC Auto (Unsp spec) 17.1 % Low 19-41 [facility] BUN/creatinine ratioOrdered By: Molly Lizarraga on 06-24-2025 Urea nitrogen/Creatinine [Mass ratio] 19.5 mg/mg 10- [facility] Basic Metabolic Profile (BMP )on 06-24-2025 BUN/CRE 19.5 RATIO Normal 10-20 [facility] Comment on above: Performed By: #### L 100.0100, L300.3900, L300.4310, L501.5200, L500.3400, L503.6005, L500.2500, L501.2450 ####[facility] [address] [place], [address] Calcium [Mass/Vol] 8.6 mg/dL Normal 7.6-11.0 [facility] Comment on above: Performed By: #### L 100.0100, L300.3900, L300.4310, L501.5200, L500.3400, L503.6005, L500.2500, L501.2450 ####[facility] [address] [place], [address] Chloride [Moles/Vol] 94 mmol/L Low 98-108 [facility] Comment on above: Performed By: #### L 100.0100, L300.3900, L300.4310, L501.5200, L500.3400, L503.6005, L500.2500, L501.2450 ####[facility] [address] [place], [place], [address] CO2 [Moles/Vol] 23.5 mmol/L Normal 21.0-32.0 [facility] Comment on above: Performed By: #### L 100.0100, L300.3900, L300.4310, L501.5200, L500.3400, L503.6005, L500.2500, L501.2450 ####[facility] [address] [place], [place], [address] Creatinine [Mass/Vol] 1.14 mg/dL Normal 0.70-1.20 [facility] Comment on above: Performed By: #### L 100.0100, L300.3900, L300.4310, L501.5200, L500.3400, L503.6005, L500.2500, L501.2450 ####[facility] [address] [place], [address] ECRCL 52.04 ml/min Normal 50-250 [facility] Comment on above: Performed By: #### L 100.0100, L300.3900, L300.4310, L501.5200, L500.3400, L503.6005, L500.2500, L501.2450 ####[facility] [address] [place], [place], [address] GAP 16 High 5-15 [facility] Comment on above: Performed By: #### L 100.0100, L300.3900, L300.4310, L501.5200, L500.3400, L503.6005, L500.2500, L501.2450 ####[facility] [address] [place], [address] GFR/1.73 sq M.predicted among non-blacks MDRD (S/P/Bld) [Vol rate/Area] 66 mL/min/{1.73_m2} Normal >60 [facility] Comment on above: Result Comment: mL/m in/1.73m2 CKD-EPI Creatinine Equation (2020) Performed By: #### L 100.0100, L300.3900, L300.4310, L501.5200, L500.3400, L503.6005, L500.2500, L501.2450 ####[facility] [address] [place], [address] Glucose [Mass/Vol] 59 mg/dL Low 70-99 [facility] Comment on above: Performed By: #### L 100.0100, L300.3900, L300.4310, L501.5200, L500.3400, L503.6005, L500.2500, L501.2450 ####[facility] [address] [place], [address] Potassium [Moles/Vol] 3.9 mmol/L Normal 3.3-5.1 [facility] Comment on above: Performed By: #### L 100.0100, L300.3900, L300.4310, L501.5200, L500.3400, L503.6005, L500.2500, L501.2450 ####[facility] [address] [place], [address] Sodium [Moles/Vol] 133 mmol/L Normal 133-145 [facility] Comment on above: Performed By: #### L 100.0100, L300.3900, L300.4310, L501.5200, L500.3400, L503.6005, L500.2500, L501.2450 ####[facility] [address] [place], [address] Urea nitrogen [Mass/Vol] 22 mg/dL High 4-19 [facility] Comment on above: Performed By: #### L 100.0100, L300.3900, L300.4310, L501.5200, L500.3400, L503.6005, L500.2500, L501.2450 ####[facility] [address] [place], [address] Basophil percentageOrdered B y: Molly Lizarraga on 06-24-2025 Basophils/100 WBC (Bld) 0.5 % 0-1 [facility] Bilirubin Test strip Ql (U)O rdered By: Molly Lizarraga on 06-24-2025 Bilirubin Ql (U) Negative Negative [facility] Bilirubin directOrdered By: Molly Lizarraga on 06-24-2025 Bilirubin.direct [Mass/Vol] 0.42 mg/dL High 0.00-0.30 [facility] Bilirubin, totalOrdered By: Molly Lizarraga on 06-24-2025 Bilirubin [Mass/Vol] 0.75 mg/dL 0.00-1.30 [facility] CBC W Auto Differential pane l (Bld)on 06-24-2025 Basophils (Bld) [#/Vol] 0.04 10*3/uL Normal <0.11 [facility] Comment on above: Order Comment: Speci men Type: BLOOD SPECIMENOrdering Facility: [facility] Address: [address] [place] [address] Performed By: #### 5 7021-8 ####[facility] TAMPA [id number] [place] [address] [place] Basophils/100 WBC (Bld) 0.7 % Normal [facility] Comment on above: Order Comment: Speci men Type: BLOOD SPECIMENOrdering Facility: [facility] Address: [address] [place] [address] Performed By: #### 5 7021-8 ####[facility] [id number] [place] [address] [place] Differential cell count method Nom (Bld) Auto Normal [facility] Comment on above: Order Comment: Speci men Type: BLOOD SPECIMENOrdering Facility: [facility] Address: [address] [place] [address] Performed By: #### 5 7021-8 ####[facility] MICKIWHAIMLIA [id number] [place] [address] [place] Eosinophils (Bld) [#/Vol] 0.09 10*3/uL Normal <0.46 [facility] Comment on above: Order Comment: Speci men Type: BLOOD SPECIMENOrdering Facility: [facility] Address: [address] [place] [address] Performed By: #### 5 7021-8 ####[facility]HAIMLIA [id number] [place] [address] [place] Eosinophils/100 WBC (Bld) 1.6 % Normal [facility] Comment on above: Order Comment: Speci men Type: BLOOD SPECIMENOrdering Facility: [facility] Address: [address] [place] [address] Performed By: #### 5 7021-8 ####[facility] [id number] [place] [address] [place] Erythrocyte distribution width (RBC) [Ratio] 14.2 % Normal 11.5-15.0 [facility] Comment on above: Order Comment: Speci men Type: BLOOD SPECIMENOrdering Facility: [facility] Address: [address] [place] [address] Performed By: #### 5 7021-8 ####[facility] PARKWAYA [id number] [place] [address] [place] Hematocrit (Bld) [Volume fraction] 25.6 % Low 39.0-51.0 [facility] Comment on above: Order Comment: Speci men Type: BLOOD SPECIMENOrdering Facility: [facility] Address: [address] [place] [address] Performed By: #### 5 7021-8 ####[facility]CLI [id number] [place] [address] [place] Hemoglobin (Bld) [Mass/Vol] 8.9 g/dL Low 13.0-17.0 [facility] Comment on above: Order Comment: Speci men Type: BLOOD SPECIMENOrdering Facility: [facility] Address: [address] [place] [address] Performed By: #### 5 7021-8 ####[facility] [id number] [place] [address] [place] Immature granulocytes (Bld) [#/Vol] 0.08 10*3/uL Normal <0.10 [facility] Comment on above: Order Comment: Speci men Type: BLOOD SPECIMENOrdering Facility: [facility] Address: [address] [place] [address] Performed By: #### 5 7021-8 ####[facility] [id number] [place] [address] [place] Immature granulocytes/100 WBC (Bld) 1.4 % Normal [facility] Comment on above: Order Comment: Speci men Type: BLOOD SPECIMENOrdering Facility: [facility] Address: [address] [place] [address] Performed By: #### 5 7021-8 ####[facility] [id number] [place] [address] [place] Lymphocytes (Bld) [#/Vol] 1.15 10*3/uL Normal 1.00-4.00 [facility] Comment on above: Order Comment: Speci men Type: BLOOD SPECIMENOrdering Facility: [facility] Address: [address] [place] [address] Performed By: #### 5 7021-8 ####[facility] [id number] [place] [address] [place] Lymphocytes/100 WBC (Bld) 19.9 % Normal [facility] Comment on above: Order Comment: Speci men Type: BLOOD SPECIMENOrdering Facility: [facility] Address: [address] [place] [address] Performed By: #### 5 7021-8 ####[facility] MICKIFRANKLINRASHAD [id number] [address] MCH (RBC) [Entitic mass] 34.6 pg High 26.0-34.0 [facility] Comment on above: Order Comment: Speci men Type: BLOOD SPECIMENOrdering Facility: [facility] Address: [address] [place] [address] Performed By: #### 5 7021-8 ####[facility] [id number] [place] [address] [place] MCHC (RBC) [Mass/Vol] 34.8 g/dL Normal 30.5-36.0 [facility] Comment on above: Order Comment: Speci men Type: BLOOD SPECIMENOrdering Facility: [facility] Address: [address] [place] [address] Performed By: #### 5 7021-8 ####[facility] [id number] [place] [address] [place] MCV (RBC) [Entitic vol] 99.6 fL Normal 80.0-100.0 [facility] Comment on above: Order Comment: Speci men Type: BLOOD SPECIMENOrdering Facility: [facility] Address: [address] [place] [address] Performed By: #### 5 7021-8 ####[facility] [id number] [place] [address] [place] Monocytes (Bld) [#/Vol] 0.95 10*3/uL High <0.87 [facility] Comment on above: Order Comment: Speci men Type: BLOOD SPECIMENOrdering Facility: [facility] Address: [address] [place] [address] Performed By: #### 5 7021-8 ####[facility] P[facility] RIDGEWNCLIA [id number] [place] [address] [place] Monocytes/100 WBC (Bld) 16.4 % Normal [facility] Comment on above: Order Comment: Speci men Type: BLOOD SPECIMENOrdering Facility: [facility] Address: [address] [place] [address] Performed By: #### 5 7021-8 ####[facility]ITALLIA [id number] [place] [address] [place] Neutrophils (Bld) [#/Vol] 3.47 10*3/uL Normal 1.45-7.50 [facility] Comment on above: Order Comment: Speci men Type: BLOOD SPECIMENOrdering Facility: [facility] Address: [address] [place] [address] Performed By: #### 5 7021-8 ####[facility] PARKWAYA [id number] [place] [address] [place] Neutrophils/100 WBC (Bld) 60.0 % Normal [facility] Comment on above: Order Comment: Speci men Type: BLOOD SPECIMENOrdering Facility: [facility] Address: [address] [place] [address] Performed By: #### 5 7021-8 ####[facility] HOSPITALLIA [id number] [place] [address] [place] Nucleated RBC (Bld) [#/Vol] 10*3/uL Normal <0.01 [facility] Comment on above: Order Comment: Speci men Type: BLOOD SPECIMENOrdering Facility: [facility] Address: [address] [place] [address] Performed By: #### 5 7021-8 ####[facility]ILL[facility]CL[facility] [id number] [place] [address] [place] Nucleated RBC/100 WBC (Bld) [Ratio] 0.0 /100 WBC Normal [facility] Comment on above: Order Comment: Speci men Type: BLOOD SPECIMENOrdering Facility: [facility] Address: [address] [place] [address] Performed By: #### 5 7021-8 ####[facility] P[facility] RIDGEWNCLI [id number] [place] [address] [place] Platelet mean volume (Bld) [Entitic vol] 9.4 fL Normal 9.0-12.7 [facility] Comment on above: Order Comment: Speci men Type: BLOOD SPECIMENOrdering Facility: [facility] Address: [address] [place] [address] Performed By: #### 5 7021-8 ####[facility] [id number] [place] [address] [place] Platelets (Bld) [#/Vol] 76 10*3/uL Low 150-400 [facility] Comment on above: Order Comment: Speci men Type: BLOOD SPECIMENOrdering Facility: [facility] Address: [address] [place] [address] Result Comment: No c lot detected. Performed By: #### 5 7021-8 ####[facility]VILLENCTiffani [id number] [place] [address] [place] RBC (Bld) [#/Vol] 2.57 10*6/uL Low 4.20-6.00 [facility] Comment on above: Order Comment: Speci men Type: BLOOD SPECIMENOrdering Facility: [facility] Address: [address] [place] [address] Performed By: #### 5 7021-8 ####[facility]ILLENCL[facility] [id number] [place] [address] [place] WBC (Bld) [#/Vol] 5.78 10*3/uL Normal 3.70-11.00 [facility] Comment on above: Order Comment: Speci men Type: BLOOD SPECIMENOrdering Facility: [facility] Address: [address] [place] [address] Performed By: #### 5 7021-8 ####[facility]ITALTOWNCLIA [id number] [place] [address] [place] CBC W/Diff, Automatedon 09 PLT EST MOD DEC Normal ADEQ [facility] Comment on above: Performed By: #### L 100.0100, L300.3900, L300.4310, L501.5200, L500.3400, L503.6005, L500.2500, L501.2450 ####[facility] [id number] [place], [address] Carbon dioxide, total [Moles /volume] in Central venous bloodOrdered By: Molly Lizarraga on 06-24-2025 CO2 [Moles/Vol] 23.5 mmol/L 21.0-32.0 [facility] Chest 1 View (Portable)on Chest 1 View (Portable) Normal [facility] Chloride assayOrdered By: Kareem Lizarraga on 06-24-2025 Chloride [Moles/Vol] 94 mmol/L Low 98-108 [facility] Comprehensive metabolic 2000 panelon 06-24-2025 Albumin [Mass/Vol] 3.4 g/dL Low 3.9-4.9 [facility] Comment on above: Order Comment: Speci men Type: BLOOD SPECIMENOrdering Facility: [facility] Address: [address] [place] [address] Performed By: #### 2 4323-8 ####[facility]CL[facility] [id number] [place] [address] [place] ALP [Catalytic activity/Vol] 234 U/L High 38-113 [facility] Comment on above: Order Comment: Speci men Type: BLOOD SPECIMENOrdering Facility: [facility] Address: [address] [place] [address] Performed By: #### 2 4323-8 ####[facility] MYA MILLTOWNCLIA [id number] [place] [address] [place] ALT [Catalytic activity/Vol] 13 U/L Normal 10-54 [facility] Comment on above: Order Comment: Speci men Type: BLOOD SPECIMENOrdering Facility: [facility] Address: [address] [place] [address] Performed By: #### 2 4323-8 ####[facility] P[facility] RIDGEWNCLIA [id number] [place] [address] [place] Anion gap [Moles/Vol] 15 mmol/L Normal 8-15 [facility] Comment on above: Order Comment: Speci men Type: BLOOD SPECIMENOrdering Facility: [facility] Address: [address] [place] [address] Performed By: #### 2 4323-8 ####[facility]CL[facility] [id number] [place] [address] [place] AST [Catalytic activity/Vol] 39 U/L Normal 14-40 [facility] Comment on above: Order Comment: Speci men Type: BLOOD SPECIMENOrdering Facility: [facility] Address: [address] [place] [address] Performed By: #### 2 4323-8 ####[facility] P[facility] RIDGEWNCLIA [id number] [place] [address] [place] Bilirubin [Mass/Vol] 0.7 mg/dL Normal 0.2-1.3 [facility] Comment on above: Order Comment: Speci men Type: BLOOD SPECIMENOrdering Facility: [facility] Address: [address] [place], [place] [address] Performed By: #### 2 4323-8 ####[facility] P[facility] RIDGEWNCLIA [id number] [place] [id number] [place] Calcium [Mass/Vol] 8.6 mg/dL Normal 8.5-10.2 [facility] Comment on above: Order Comment: Speci men Type: BLOOD SPECIMENOrdering Facility: [facility] Address: [address] [place] [address] Performed By: #### 2 4323-8 ####[facility] MYA MILLTOWNCLIA [id number] [place] [address] [place] Chloride [Moles/Vol] 94 mmol/L Low 98-107 [facility] Comment on above: Order Comment: Speci men Type: BLOOD SPECIMENOrdering Facility: [facility] Address: [address] [place] [address] Performed By: #### 2 4323-8 ####[facility] MILLTOWNCLIA [id number] [place] [address] [place] CO2 [Moles/Vol] 24 mmol/L Normal 22-30 [facility] Comment on above: Order Comment: Speci men Type: BLOOD SPECIMENOrdering Facility: [facility] Address: [address] [place] [address] Performed By: #### 2 4323-8 ####[facility] MILLWNCLIA [id number] [place] [address] [place] Creatinine [Mass/Vol] 1.05 mg/dL Normal 0.73-1.22 [facility] Comment on above: Order Comment: Speci men Type: BLOOD SPECIMENOrdering Facility: [facility] Address: [address] [place] [address] Performed By: #### 2 4323-8 ####[facility] MILLTOWNCLIA [id number] [place] [address] [place] eGFRcr SerPlBld CKD-EPI 2020 73 mL/min/1.73m??? Normal >=60 [facility] Comment on above: Order Comment: Speci men Type: BLOOD SPECIMENOrdering Facility: [facility] Address: [address] [id number] Result Comment: Lulu mated Glomerular Filtration Rate (eGFR) is calculated using the 2020 CKD-EPI creatinine equation. This equation utilizes serum creatinine, sex, and age as parameters. The creatinine assay has traceable calibration to isotope dilution-mass spectrometry. Refer to KDIGO guidelines for clinical interpretation. In patients with unstable renal function, e.g. those with acute kidney injury, the eGFR may not accurately reflect actual GFR. Performed By: #### 2 4323-8 ####[facility] [id number] [place] [address] [place] Glucose [Mass/Vol] 59 mg/dL Low 74-99 [facility] Comment on above: Order Comment: Maury gama Type: BLOOD SPECIMENOrdering Facility: [facility] Address: [address] [place] [address] Result Comment: The [place] Diabetes Association (ADA) provides guidance for cutoff values for fasting glucose and random glucose. The ADA defines fasting as no caloric intake for at least 8 hours. Fasting plasma glucose results between 100 to 125 mg/dL indicate increased risk for diabetes (prediabetes).Fasting plasma glucose results greater than or equal to 126 mg/dL meet the criteria for diagnosis of diabetes. In the absence of unequivocal hyperglycemia, results should be confirmed by repeat testing. In a patient with classic symptoms of hyperglycemia or hyperglycemic crisis, random plasma glucose results greater than or equal to 200 mg/dL meet the criteria for diagnosis of diabetes.Reference: Standards of Medical Care in Diabetes 2016, [place] [employer]. Diabetes Care. 2016.39(Suppl 1). Performed By: #### 2 4323-8 ####[facility] [id number] [place] [address] [place] Potassium [Moles/Vol] 3.6 mmol/L Low 3.7-5.1 [facility] Comment on above: Order Comment: Maury gama Type: BLOOD SPECIMENOrdering Facility: [facility] Address: [address] [id number] Performed By: #### 2 4323-8 ####[facility] MYA MILLTOWNCLIA [id number] [place] [address] [place] Protein [Mass/Vol] 6.4 g/dL Normal 6.3-8.0 [facility] Comment on above: Order Comment: Speci men Type: BLOOD SPECIMENOrdering Facility: [facility] Address: [address] [place] [address] Performed By: #### 2 4323-8 ####[facility] MILLWNCLIA [id number] [place] [address] [place] Sodium [Moles/Vol] 133 mmol/L Low 136-144 [facility] Comment on above: Order Comment: Speci men Type: BLOOD SPECIMENOrdering Facility: [facility] Address: [address] [place] [address] Performed By: #### 2 4323-8 ####[facility] MILLTOWNCLIA [id number] [place] [address] [place] Urea nitrogen [Mass/Vol] 21 mg/dL Normal 9-24 [facility] Comment on above: Order Comment: Speci men Type: BLOOD SPECIMENOrdering Facility: [facility] Address: [address] [place] [address] Performed By: #### 2 4323-8 ####[facility] MILLWNCLIA [id number] [place] [address] [place] Cortis SerPl-mCncon 06-24-20 25 Cortisol [Mass/Vol] 1.1 ug/dL Low 4.8-19.5 [facility] Comment on above: Order Comment: Speci men Type: BLOOD SPECIMENOrdering Facility: [facility] Address: [address] [place] [address] Result Comment: Prov ided reference range is from 6-10 AM sample collection time.Cortisol Reference Range: 6-10 AM = 4.8-19.5 ug/dL, 4-8 PM = 2.5-11.9 ug/dL Performed By: #### 3 024-7, 2143-6, 3016-3 ####[facility] LABCLIA [id number] [address] [place] [id number] [place] Emergency Department Summary on 06-24-2025 Emergency Department Summary Normal [facility] Eosinophil percentageOrdered By: Molly Lizarraga on 06-24-2025 Eosinophils/100 WBC (Bld) 1.6 % 0-5 [facility] Erythrocyte distribution wid th ratioOrdered By: Molly Lizarraga on 06-24-2025 Erythrocyte distribution width (RBC) [Ratio] 14.3 % 11.6-14.6 [facility] Erythrocyte distribution wid th standard deviationOrdered By: Molly Lizarraga on 06-24-2025 Erythrocyte distribution width (RBC) [Ratio] 51.7 fl High 35.1-43.9 [facility] Ferritinon 06-24-2025 Ferritin [Mass/Vol] 2355 ng/mL High 37-417 [facility] Comment on above: Performed By: #### L 503.6030, L503.0106, L503.6550 ####[facility] [address] [place], [place], [id number] Glomerular filtration rate ( GFR) estimation/1.73 sq m using serum, plasma, or whole bOrdered By: Molly Lizarraga on 06-24-2025 GFR/1.73 sq M.predicted among non-blacks MDRD (S/P/Bld) [Vol rate/Area] 66 mL/min/{1.73_m2} >60 [facility] Comment on above: mL/min/1.73m2 CKD-EP I Creatinine Equation (2020) H AND P Exam - Hospitaliston 06-24-2025 H&P Exam - Hospitalist Normal [facility] Hematocrit Auto (Bld) [Volum e fraction]Ordered By: Molly Lizarraga on 06-24-2025 Hematocrit (Bld) [Volume fraction] 24.8 % Low 40-54 [facility] Hemoglobin measurementOrdere d By: Molly Lizarraga on 06-24-2025 Hemoglobin (Bld) [Mass/Vol] 8.6 g/dL Low 13.0-16.5 [facility] Hyaline casts LM.LPF (Urine sed) [#/Area]Ordered By: Molly Lizarraga on 06-24-2025 Hyaline casts (Urine sed) [#/Area] 0 /[LPF] 0-5 [facility] Immature granulocytes/100 WB C Auto (Bld)Ordered By: Molly Lizarraga on 06-24-2025 Immature granulocytes/100 WBC (Bld) 1.400 % High 0.0-0.9 [facility] Comment on above: IG% - Immature Granu locytes (promyelocytes, myelocytes and metamyelocytes) > 1% indicates that a LEFT SHIFT is Present. International normalized rat io (INR) calculationOrdered By: Molly Lizarraga on 06-24-2025 INR Coag (Bld) [Relative time] 1.2 {INR} [facility] Iron measurement (mass/mass) Ordered By: Bandar Salmeron on 06-24-2025 Iron (Unsp spec) [Mass/Mass] 110 ug/dL 65-175 [facility] Iron+Iron Binding Capacityon 06-24-2025 TIBC 168 ug/dL Low 250-450 [facility] Comment on above: Performed By: #### L 503.6030, L503.0106, L503.6550 ####[facility] [address] [place], [address] Ketones Test strip Ql (U)Ord ered By: Molly Lizarraga on 06-24-2025 Ketones Ql (U) 150 mg/dl Abnormal Negative [facility] Comment on above: CRITICAL VALUE *H Laboratory - Chemistry and C hemistry - challengeOrdered By: Molly Lizarraga on 06-24-2025 AST [Catalytic activity/Vol] 44 U/L High <38 [facility] Lactic Acidon 06-24-2025 Lactate [Moles/Vol] 1.5 mmol/L Normal 0.0-2.0 [facility] Comment on above: Order Comment: Y Performed By: #### L 100.0100, L300.3900, L300.4310, L501.5200, L500.3400, L503.6005, L500.2500, L501.2450 ####[facility] [address] [place], [place], [id number] Lactic acid measurementOrder ed By: Molly Lizarraga on 06-24-2025 Lactate [Moles/Vol] 1.5 mmol/L 0.0-2.0 [facility] Lipaseon 06-24-2025 Lipase [Catalytic activity/Vol] 16 U/L Normal - [facility] Comment on above: Result Comment: Plea se note:LIPASE revised reference range effective 23.New Lipase methodology. Expected to produce lower valuesthan the previous assay method.NEW Reference Range: 13 - 75 U/L Performed By: #### L 100.0100, L300.3900, L300.4310, L501.5200, L500.3400, L503.6005, L500.2500, L501.2450 ####[facility] [address] [place], [address] Lipase measurementOrdered By : Molly Lizarraga on 06-24-2025 Lipase [Catalytic activity/Vol] 16 U/L - [facility] Comment on above: Please note:LIPASE r evised reference range effective 23. New Lipase methodology. Expected to produce lower values than the previous assay method. NEW Reference Range: 13 - 75 U/L Liver Profileon 06-24-2025 Albumin [Mass/Vol] 3.3 g/dL Low 3.4-4.8 [facility] Comment on above: Performed By: #### L 100.0100, L300.3900, L300.4310, L501.5200, L500.3400, L503.6005, L500.2500, L501.2450 ####[facility] [address] [place], [place], [id number] ALK PHOS 220 U/L High 40-129 [facility] Comment on above: Performed By: #### L 100.0100, L300.3900, L300.4310, L501.5200, L500.3400, L503.6005, L500.2500, L501.2450 ####[facility] [address] [place], [address] ALT [Catalytic activity/Vol] 17 U/L Normal <=46 [facility] Comment on above: Performed By: #### L 100.0100, L300.3900, L300.4310, L501.5200, L500.3400, L503.6005, L500.2500, L501.2450 ####[facility] [address] [place], [address] AST [Catalytic activity/Vol] 44 U/L High <=37 [facility] Comment on above: Performed By: #### L 100.0100, L300.3900, L300.4310, L501.5200, L500.3400, L503.6005, L500.2500, L501.2450 ####[facility] [address] [place], [address] Bilirubin [Mass/Vol] 0.75 mg/dL Normal 0.00-1.30 [facility] Comment on above: Performed By: #### L 100.0100, L300.3900, L300.4310, L501.5200, L500.3400, L503.6005, L500.2500, L501.2450 ####[facility] [address] [place], [address] Bilirubin.direct [Mass/Vol] 0.42 mg/dL High 0.00-0.30 [facility] Comment on above: Performed By: #### L 100.0100, L300.3900, L300.4310, L501.5200, L500.3400, L503.6005, L500.2500, L501.2450 ####[facility] [address] [place], [address] Globulin (S) [Mass/Vol] 3.1 g/dL Normal 2.2-4.2 [facility] Comment on above: Performed By: #### L 100.0100, L300.3900, L300.4310, L501.5200, L500.3400, L503.6005, L500.2500, L501.2450 ####[facility] [address] [place], [address] T PROT 6.4 g/dL Normal 5.9-8.4 [facility] Comment on above: Performed By: #### L 100.0100, L300.3900, L300.4310, L501.5200, L500.3400, L503.6005, L500.2500, L501.2450 ####[facility] [address] [place], [address] MCV (mean corpuscular volume ) determinationOrdered By: Molly Lizarraga on 06-24-2025 MCV (RBC) [Entitic vol] 99.6 fL High 80-94 [facility] Magnesiumon 06-24-2025 Magnesium [Mass/Vol] 1.0 mg/dL Low 1.5-2.2 [facility] Comment on above: Performed By: #### L 100.0100, L300.3900, L300.4310, L501.5200, L500.3400, L503.6005, L500.2500, L501.2450 ####[facility] [address] [place], [address] Magnesium measurement (mass/ volume)Ordered By: Molly Lizarraga on 06-24-2025 Magnesium (Unsp spec) [Mass/Vol] 1.0 mg/dL Low 1.5-2.2 [facility] Mean corpuscular hemoglobin (MCH) determinationOrdered By: Molly Lizarraga on 06-24-2025 MCH (RBC) [Entitic mass] 34.5 pg High 27.0-32.0 [facility] Mean corpuscular hemoglobin concentration (MCHC) determinationOrdered By: Molly Lizarraga on 06-24-2025 MCHC (RBC) [Mass/Vol] 34.7 g/dL 32-36 [facility] Mean platelet volume determi nationOrdered By: Molly Lizarraga on 06-24-2025 Platelet mean volume (Bld) [Entitic vol] 10.2 fL 6.2-12.0 [facility] Microscopic analysis of urin e for red blood cells (RBC)Ordered By: Molly Lizarraga on 06-24-2025 Microscopic analysis of urine for red blood cells (RBC) 0 SEEN /hpf 0-5 [facility] Monocyte percentageOrdered B y: Molly Lizarraga on 06-24-2025 Monocytes/100 WBC (Bld) 16.4 % High 0-10 [facility] Mucus LM Ql (Urine sed)Order ed By: Molly Lizarraga on 06-24-2025 Mucus Ql (Urine sed) 0 SEEN /hpf [facility] Neutrophil percentageOrdered By: Molly Lizarraga on 06-24-2025 Neutrophils/100 WBC (Bld) 63.0 % 47-70 [facility] Nitrite Test strip Ql (U)Ord ered By: Molly Lizarraga on 06-24-2025 Nitrite Ql (U) Negative Negative [facility] No Panel InformationOrdered By: Bandar Salmeron on 06-24-2025 Unsaturated Iron Binding Capacity 58 ug/dL Low 228-428 [facility] Nucleated red blood cell per centageOrdered By: Molly Lizarraga on 06-24-2025 Nucleated RBC/100 WBC (Bld) [Ratio] 0 % 0-5 [facility] Partial Thromboplast Timeon 06-24-2025 aPTT Coag (Bld) [Time] 37.3 s High 24.1-36.2 [facility] Comment on above: Performed By: #### L 100.0100, L300.3900, L300.4310, L501.5200, L500.3400, L503.6005, L500.2500, L501.2450 ####[facility] [address] [place], [address] Phosphoruson 06-24-2025 Phosphate [Mass/Vol] 2.8 mg/dL Normal 2.7-4.5 [facility] Comment on above: Performed By: #### L 501.2300 ####[facility] [address] [place], [address] Platelet countOrdered By: Kareem Lizarraga on 06-24-2025 Platelets (Bld) [#/Vol] 71 10*3/uL Low 150-450 [facility] Platelet estimateOrdered By: Molly Lizarraga on 06-24-2025 Platelets LM Ql (Bld) MOD DEC ADEQ [facility] Potassium measurement (mass/ volume)Ordered By: Mloly Lizarraga on 06-24-2025 Potassium (Unsp spec) [Mass/Vol] 3.9 mmol/L 3.3-5.1 [facility] Protein Test strip Ql (U)Ord ered By: Molly Lizarraga on 06-24-2025 Protein Ql (U) 30 mg/dl High Negative [facility] Prothrombin Time w/INRon INR Coag (PPP) [Relative time] 1.2 {INR} Normal [facility] Comment on above: Performed By: #### L 100.0100, L300.3900, L300.4310, L501.5200, L500.3400, L503.6005, L500.2500, L501.2450 ####[facility] [address] [place], [address] PT Coag (PPP) [Time] 15.9 s High 11.7-14.9 [facility] Comment on above: Performed By: #### L 100.0100, L300.3900, L300.4310, L501.5200, L500.3400, L503.6005, L500.2500, L501.2450 ####[facility] [address] [place], [address] Prothrombin timeOrdered By: Molly Lizarraga on 06-24-2025 PT Coag (PPP) [Time] 15.9 s High 11.7-14.9 [facility] RBC Auto (Bld) [#/Vol]Ordere d By: Molly Lizarraga on 06-24-2025 RBC (Bld) [#/Vol] 2.49 10*6/uL Low 4.6-6.2 [facility] Serum creatinine measurement (mass/volume)Ordered By: Molly Lizarraga on 06-24-2025 Creatinine [Mass/Vol] 1.14 mg/dL 0.70-1.20 [facility] Serum globulin measurementOr dered By: Molly Lizarraga on 06-24-2025 Globulin (S) [Mass/Vol] 3.1 g/dL 2.2-4.2 [facility] Serum glucose measurement (m ass/volume)Ordered By: Molly Lizarraga on 06-24-2025 Glucose [Mass/Vol] 59 mg/dL Low 70-99 [facility] Serum or plasma alanine spangler otransferase (ALT) measurementOrdered By: Molly Lizarraga on 06-24-2025 ALT [Catalytic activity/Vol] 17 U/L <47 [facility] Serum or plasma albumin marques urement (mass/volume)Ordered By: Molly Lizarraga on 06-24-2025 Albumin [Mass/Vol] 3.3 g/dL Low 3.4-4.8 [facility] Serum or plasma alkaline benji sphatase measurementOrdered By: Molly Lizarraga on 06-24-2025 ALP [Catalytic activity/Vol] 220 U/L High 40-129 [facility] Serum or plasma calcium marques urement (mass/volume)Ordered By: Molly Lizarraga on 06-24-2025 Calcium [Mass/Vol] 8.6 mg/dL 7.6-11.0 [facility] Serum or plasma ferritin [place] surement (mass/volume)Ordered By: Bandar Salmeron on 06-24-2025 Ferritin [Mass/Vol] 2355 ng/mL High 37-417 [facility] Serum or plasma iron saturat ion measurement (mass fraction)Ordered By: Bandar Salmeron on 06-24-2025 Iron saturation [Mass fraction] 65.0 % High 9-55 [facility] Comment on above: Previous reported re sult: 65.0 %Edited by: STACI on 06/24/25:1828 Serum or plasma urea nitroge n measurement (mass/volume)Ordered By: Molly Lizarraga on 06-24-2025 Urea nitrogen [Mass/Vol] 22 mg/dL High 4-19 [facility] Sodium levelOrdered By: Laura Lizarraga on 06-24-2025 Sodium [Moles/Vol] 133 mmol/L 133-145 [facility] Squamous epithelial cells de tection in urine sediment by light microscopyOrdered By: Molly Lizarraga on 06-24-2025 Epithelial cells.squamous LM Ql (Urine sed) 0 SEEN /hpf 0-5 [facility] Stool Occult Blood iFOBon STOB Positive Normal [facility] Comment on above: Performed By: #### M 100.7900 ####[facility] [address] [place], [address] Stool gastrointestinal hemog lobin detection by immunologic methodOrdered By: Molly Lizarraga on 06-24-2025 Lower GI hemoglobin IA Ql (Stl) Positive Abnormal [facility] T4 Free SerPl-mCncon 025 Free T4 [Mass/Vol] 0.7 ng/dL Low 0.9-1.7 [facility] Comment on above: Order Comment: Speci men Type: BLOOD SPECIMENOrdering Facility: [facility] Address: [address] [place] [address] Performed By: #### 3 024-7, 2143-6, 3016-3 ####[facility] LABCLIA [id number] [place] [address] [place] TSH SerPl-aCncon 06-24-2025 TSH Qn 11.800 m[IU]/L High 0.270-4.200 [facility] Comment on above: Order Comment: Speci men Type: BLOOD SPECIMENOrdering Facility: [facility] Address: [address] [place] [address] Performed By: #### 3 024-7, 2143-6, 3016-3 ####[facility] LABCLIA [id number] [address] [place] Total proteinOrdered By: Amanda Lizarraga on 06-24-2025 Protein [Mass/Vol] 6.4 g/dL 5.9-8.4 [facility] Urinalysis, Completeon 06-24 CAST,HYALINE 0-5 SEEN Normal 0-5 [facility] Comment on above: Order Comment: RESUL TS CALLED TO [facility] 06/24/[address] [place], [place] [address] [place] READ BACK BY SAME.ROLLER MAKER TO SPECIFY Performed By: #### L 400.0001 ####[facility] [address] [place], [address] BACTERIA 0 SEEN Normal None Seen [facility] Comment on above: Order Comment: RESUL TS CALLED TO [facility] 06/24/25 [address] [employer] [place] READ BACK BY SAME.ROLLER MAKER TO SPECIFY Performed By: #### L 400.0001 ####[facility] [address] [place], [address] EPI,SQUAMOUS 0 SEEN Normal 0-5 [facility] Comment on above: Order Comment: RESUL TS CALLED TO [facility] 06/24/25 [address] [employer] [place] READ BACK BY SAME.ROLLER MAKER TO SPECIFY Performed By: #### L 400.0001 ####[facility] [address] [place], [address] Mucus Ql (Urine sed) 0 SEEN Normal [facility] Comment on above: Order Comment: RESUL TS CALLED TO [facility] 06/24/[address] [place], [place] [address] [place] READ BACK BY SAME.ROLLER MAKER TO SPECIFY Performed By: #### L 400.0001 ####[facility] [address] [place], [address] RBC 0 SEEN Normal 0-5 [facility] Comment on above: Order Comment: RESUL TS CALLED TO [facility] 06/24/25 [address] [place] READ BACK BY SAME.ROLLER MAKER TO SPECIFY Performed By: #### L 400.0001 ####[facility] [address] [place], [place], [address] WBC 0 SEEN Normal 0-5 [facility] Comment on above: Order Comment: DAVID TS CALLED TO [facility] 06/24/25 [address] [place] READ BACK BY SAME.ROLLER MAKER TO SPECIFY Performed By: #### L 400.0001 ####[facility] [address] [place], [place], [address] Urine clarityOrdered By: Amanda Lizarraga on 06-24-2025 Clarity (U) Clear Clear [facility] Urine color determinationOrd ered By: Molly Lizarraga on 06-24-2025 Color (U) Yellow Yellow [facility] Urine glucose detectionOrder ed By: Molly Lizarraga on 06-24-2025 Glucose Ql (U) Normal mg/dl Normal [facility] Urine leukocyte esterase det ection by dipstickOrdered By: Molly Lizarraga on 06-24-2025 Leukocyte esterase Test strip Ql (U) Negative Negative [facility] Urine pHOrdered By: Molly morel on 06-24-2025 pH (U) 6.0 [pH] 5.0 - 8.0 [facility] Urine sediment bacteria coun t by microscopy (number/high power field)Ordered By: Molly Lizarraga on 06-24-2025 Bacteria LM.HPF (Urine sed) [#/Area] 0 /[HPF] None Seen [facility] Urine specific gravity measu rementOrdered By: Molly Lizarraga on 06-24-2025 Specific gravity (U) [Rel density] 1.015 1.002-1.030 [facility] Urine urobilinogen measureme ntOrdered By: Molly Lizarraga on 06-24-2025 Urobilinogen Ql (U) 1 mg/dl High Normal [facility] Vitamin B12on 06-24-2025 Cobalamin (Vitamin B12) [Mass/Vol] pg/mL High 180-914 [facility] Comment on above: Performed By: #### L 503.6030, L503.0106, L503.6550 ####[facility] [address] [place], [place], [address] White blood cell (WBC) count Ordered By: Molly Lizarraga on 06-24-2025 WBC (Bld) [#/Vol] 5.6 10*3/uL 4.4-11.0 [facility] White blood cell countOrdere d By: Molly Lizarraga on 06-24-2025 White blood cell count 0 SEEN /hpf 0-5 [facility] CBC W Auto Differential pane l (Bld)on 06-11-2025 Basophils (Bld) [#/Vol] 10*3/uL Normal <0.11 [facility] Comment on above: Order Comment: Speci men Type: BLOOD SPECIMENOrdering Facility: [facility] Address: [address] [place] [address] Performed By: #### 5 7021-8 ####[facility] [id number] [place] [address] [place] Basophils/100 WBC (Bld) 0.5 % Normal [facility] Comment on above: Order Comment: Speci men Type: BLOOD SPECIMENOrdering Facility: [facility] Address: [address] [place] [address] Performed By: #### 5 7021-8 ####[facility] MILLWNCLIA [id number] [place] [address] [place] Differential cell count method Nom (Bld) Auto Normal [facility] Comment on above: Order Comment: Speci men Type: BLOOD SPECIMENOrdering Facility: [facility] Address: [address] [place] [address] Performed By: #### 5 7021-8 ####[facility] [id number] [place] [address] [place] Eosinophils (Bld) [#/Vol] 0.31 10*3/uL Normal <0.46 [facility] Comment on above: Order Comment: Speci men Type: BLOOD SPECIMENOrdering Facility: [facility] Address: [address] [place] [address] Performed By: #### 5 7021-8 ####[facility] [id number] [place] [address] [place] Eosinophils/100 WBC (Bld) 8.4 % Normal [facility] Comment on above: Order Comment: Speci men Type: BLOOD SPECIMENOrdering Facility: [facility] Address: [address] [place] [address] Performed By: #### 5 7021-8 ####[facility] [id number] [place] [address] [place] Erythrocyte distribution width (RBC) [Ratio] 14.7 % Normal 11.5-15.0 [facility] Comment on above: Order Comment: Speci men Type: BLOOD SPECIMENOrdering Facility: [facility] Address: [address] [place] [address] Performed By: #### 5 7021-8 ####[facility] [id number] [place] [address] [place] Hematocrit (Bld) [Volume fraction] 28.2 % Low 39.0-51.0 [facility] Comment on above: Order Comment: Speci men Type: BLOOD SPECIMENOrdering Facility: [facility] Address: [address] [place] [address] Performed By: #### 5 7021-8 ####[facility] [id number] [place] [address] [place] Hemoglobin (Bld) [Mass/Vol] 9.5 g/dL Low 13.0-17.0 [facility] Comment on above: Order Comment: Speci men Type: BLOOD SPECIMENOrdering Facility: [facility] Address: [address] [place] [address] Performed By: #### 5 7021-8 ####[facility] MICKIEVA [id number] [place] [address] [place] Immature granulocytes (Bld) [#/Vol] 10*3/uL Normal <0.10 [facility] Comment on above: Order Comment: Speci men Type: BLOOD SPECIMENOrdering Facility: [facility] Address: [address] [place] [address] Performed By: #### 5 7021-8 ####[facility] [id number] [place] [address] [place] Immature granulocytes/100 WBC (Bld) 0.3 % Normal [facility] Comment on above: Order Comment: Speci men Type: BLOOD SPECIMENOrdering Facility: [facility] Address: [address] [place] [address] Performed By: #### 5 7021-8 ####[facility] [id number] [place] [address] [place] Lymphocytes (Bld) [#/Vol] 0.94 10*3/uL Low 1.00-4.00 [facility] Comment on above: Order Comment: Speci men Type: BLOOD SPECIMENOrdering Facility: [facility] Address: [address] [place] [address] Performed By: #### 5 7021-8 ####[facility] [id number] [place] [address] [place] Lymphocytes/100 WBC (Bld) 25.5 % Normal [facility] Comment on above: Order Comment: Speci men Type: BLOOD SPECIMENOrdering Facility: [facility] Address: [address] [place] [address] Performed By: #### 5 7021-8 ####[facility] [id number] [place] [address] [place] MCH (RBC) [Entitic mass] 34.5 pg High 26.0-34.0 [facility] Comment on above: Order Comment: Speci men Type: BLOOD SPECIMENOrdering Facility: [facility] Address: [address] [place] [address] Performed By: #### 5 7021-8 ####[facility] [id number] [place] [address] [place] MCHC (RBC) [Mass/Vol] 33.7 g/dL Normal 30.5-36.0 [facility] Comment on above: Order Comment: Speci men Type: BLOOD SPECIMENOrdering Facility: [facility] Address: [address] [place] [address] Performed By: #### 5 7021-8 ####[facility] [id number] [place] [address] [place] MCV (RBC) [Entitic vol] 102.5 fL High 80.0-100.0 [facility] Comment on above: Order Comment: Speci men Type: BLOOD SPECIMENOrdering Facility: [facility] Address: [address] [place] [address] Performed By: #### 5 7021-8 ####[facility] [id number] [place] [address] [place] Monocytes (Bld) [#/Vol] 0.45 10*3/uL Normal <0.87 [facility] Comment on above: Order Comment: Speci men Type: BLOOD SPECIMENOrdering Facility: [facility] Address: [address] [place] [address] Performed By: #### 5 7021-8 ####[facility] [id number] [place] [address] [place] Monocytes/100 WBC (Bld) 12.2 % Normal [facility] Comment on above: Order Comment: Speci men Type: BLOOD SPECIMENOrdering Facility: [facility] Address: [address] [place] [address] Performed By: #### 5 7021-8 ####[facility] [id number] [place] [address] [place] Neutrophils (Bld) [#/Vol] 1.95 10*3/uL Normal 1.45-7.50 [facility] Comment on above: Order Comment: Speci men Type: BLOOD SPECIMENOrdering Facility: [facility] Address: [address] [place] [address] Performed By: #### 5 7021-8 ####[facility] [id number] [place] [address] [place] Neutrophils/100 WBC (Bld) 53.1 % Normal [facility] Comment on above: Order Comment: Speci men Type: BLOOD SPECIMENOrdering Facility: [facility] Address: [address] [place] [address] Performed By: #### 5 7021-8 ####[facility] [id number] [place] [address] [place] Nucleated RBC (Bld) [#/Vol] 10*3/uL Normal <0.01 [facility] Comment on above: Order Comment: Speci men Type: BLOOD SPECIMENOrdering Facility: [facility] Address: [address] [place] [address] Performed By: #### 5 7021-8 ####[facility] [id number] [place] [address] [place] Nucleated RBC/100 WBC (Bld) [Ratio] 0.0 /100 WBC Normal [facility] Comment on above: Order Comment: Speci men Type: BLOOD SPECIMENOrdering Facility: [facility] Address: [address] [place] [address] Performed By: #### 5 7021-8 ####[facility] LORENANCWINIFRED [id number] [place] [address] [place] Platelet mean volume (Bld) [Entitic vol] 9.2 fL Normal 9.0-12.7 [facility] Comment on above: Order Comment: Speci men Type: BLOOD SPECIMENOrdering Facility: [facility] Address: [address] [place] [address] Performed By: #### 5 7021-8 ####[facility] LORENANCWINIFRED [id number] [place] [address] [place] Platelets (Bld) [#/Vol] 102 10*3/uL Low 150-400 [facility] Comment on above: Order Comment: Speci men Type: BLOOD SPECIMENOrdering Facility: [facility] Address: [address] [place] [address] Performed By: #### 5 7021-8 ####[facility] [id number] [place] [address] [place] RBC (Bld) [#/Vol] 2.75 10*6/uL Low 4.20-6.00 [facility] Comment on above: Order Comment: Speci men Type: BLOOD SPECIMENOrdering Facility: [facility] Address: [address] [place] [address] Performed By: #### 5 7021-8 ####[facility] [id number] [place] [address] [place] WBC (Bld) [#/Vol] 3.68 10*3/uL Low 3.70-11.00 [facility] Comment on above: Order Comment: Speci men Type: BLOOD SPECIMENOrdering Facility: [facility] Address: [address] [place] [address] Performed By: #### 5 7021-8 ####[facility] [id number] [place] [address] [place] CNPNon 06-06-2025 CNPN Normal [facility] ALLIED HEALTHon 06-04-2025 ALLIED HEALTH HNO ID: [id number] Author: JAIR ASTORGA Tech Service: Radiology Author Type: Meat Stuffer Type: Allied Health Filed: 06/04/2025 19:07 Note Text: Radiology Service Progress Note PATIENT NAME: Russell Vaughn DATE OF SERVICE: June 04, 2025 TIME: 7:07 PM PATIENT IDENTITY VERIFICATION COMPLETED USING TWO (2) IDENTIFIERS: Name and Date of confirmed by patient verbally. FALL SCREENING: Has the patient had 2 falls in the last year or 1 fall with injury or currently using an Ambulatory Assistive Device (Walker, Cane, Wheelchair, Crutches, etc.)? Emergency Room Patient: Screened in ED PATIENT GENDER DATA: Assigned male at PATIENT RELEVANT IMPLANT DATA REVIEWED: Not Applicable PATIENT PRESENTS WITH AN IMPLANTABLE OR ATTACHED CABIN AGENT: No RADIOLOGY DEPARTMENT: Ultrasound PERIPHERAL IV DATA: Not applicable SIGNED BY: Kalee Ward June 04, 2025 7:07 PM [facility] CBC W Auto Differential pane l (Bld)on 06-04-2025 Basophils (Bld) [#/Vol] 0.00 10*3/uL [facility] Basophils/100 WBC (Bld) 0.0 % [facility] Dacrocytes LM Ql (Bld) Few [facility] Differential cell count method Nom (Bld) Manual [facility] Eosinophils (Bld) [#/Vol] 0.11 10*3/uL NINF [facility] Eosinophils/100 WBC (Bld) 5.0 % [facility] Erythrocyte distribution width (RBC) [Ratio] 14.7 % 11.5 - 15.0 % [facility] Hematocrit (Bld) [Volume fraction] 26.8 % Low 39.0 - 51.0 % [facility] Hemoglobin (Bld) [Mass/Vol] 9.3 g/dL Low 13.0 - 17.0 g/dL [facility] Interpretation and review of laboratory results Abnormal [facility] Lymphocytes (Bld) [#/Vol] 0.81 10*3/uL Low [facility] Lymphocytes/100 WBC (Bld) 38.0 % [facility] MCH (RBC) [Entitic mass] 35.2 pg High 26.0 - 34.[address] [facility] MCHC (RBC) [Mass/Vol] 34.7 g/dL 30.5 - 36.0 g/dL [facility] MCV (RBC) [Entitic vol] 101.5 fL High 80.0 - 100.[address] [facility] Monocytes (Bld) [#/Vol] 0.24 10*3/uL [facility] Monocytes/100 WBC (Bld) 11.0 % [facility] Neutrophils (Bld) [#/Vol] 0.98 10*3/uL Low [facility] Neutrophils/100 WBC (Bld) 46.0 % [facility] Nucleated RBC (Bld) [#/Vol] [facility] Nucleated RBC/100 WBC (Bld) [Ratio] 0.0 % /[address] [facility] Ovalocytes LM Ql (Bld) Few Cl [facility] Platelet mean volume (Bld) [Entitic vol] 9.1 fL 9.0 - 12.[address] [facility] Platelets (Bld) [#/Vol] 122 10*3/uL [facility] Comment on above: No clot detected. Platelets Estimate (Bld) [#/Vol] Decreased [facility] RBC (Bld) [#/Vol] 2.64 10*6/uL Low 4.20 - 6.0 0 m/uL [facility] Red Cell Morph Reviewed: see result s of individual morphologies [facility] WBC (Bld) [#/Vol] 2.14 10*3/uL [facility] This is an appended report. These results have been appended to a previously verified report. [facility] Basophils (Bld) [#/Vol] 0.00 10*3/uL Normal <0.11 [facility] Comment on above: Order Comment: Speci men Type: BLOOD SPECIMENOrdering Facility: [facility] Address: [address] [place] [address] Performed By: #### 5 7021-8 ####[facility] [id number] [address] LABORATORYCLIA [id number] [place] [address] [place] Basophils/100 WBC (Bld) 0.0 % Normal [facility] Comment on above: Order Comment: Speci men Type: BLOOD SPECIMENOrdering Facility: [facility] Address: [address] [place] [address] Performed By: #### 5 7021-8 ####[facility] MILLTOWNCLIA [id number] [address] LABORATORYCLIA [id number] [place] [address] [place] Dacrocytes LM Ql (Bld) Few Normal Cl [facility] Comment on above: Order Comment: Speci men Type: BLOOD SPECIMENOrdering Facility: [facility] Address: [address] [place] [address] Performed By: #### 5 7021-8 ####[facility] MILLWNCLIA [id number] [address] LABORATORYCLIA [id number] [place] [address] [place] Differential cell count method Nom (Bld) Manual Normal [facility] Comment on above: Order Comment: Speci men Type: BLOOD SPECIMENOrdering Facility: [facility] Address: [address] [place] [address] Performed By: #### 5 7021-8 ####[facility] MILLTOWNCLIA [id number] [address] LABORATORYCLIA [id number] [place] [address] [place] [facility] Eosinophils (Bld) [#/Vol] 0.11 10*3/uL Normal <0.46 [facility] Comment on above: Order Comment: Speci men Type: BLOOD SPECIMENOrdering Facility: [facility] Address: [address] [place] [address] Performed By: #### 5 7021-8 ####[facility] MILLTOWNCLIA [id number] [address] LABORATORYCLIA [id number] [place] [address] [place] Eosinophils/100 WBC (Bld) 5.0 % Normal [facility] Comment on above: Order Comment: Speci men Type: BLOOD SPECIMENOrdering Facility: [facility] Address: [address] [place] [address] Performed By: #### 5 7021-8 ####[facility] R[facility]GEWNCLIA [id number] [address] LABORATORYCLIA [id number] [place] [address] [place] Erythrocyte distribution width (RBC) [Ratio] 14.7 % Normal 11.5-15.0 [facility] Comment on above: Order Comment: Speci men Type: BLOOD SPECIMENOrdering Facility: [facility] Address: [address] [place] [address] Performed By: #### 5 7021-8 ####[facility] MICKITOWNCLIA [id number] [address] LABORATORYCLIA [id number] [address] [place] Hematocrit (Bld) [Volume fraction] 26.8 % Low 39.0-51.0 [facility] Comment on above: Order Comment: Speci men Type: BLOOD SPECIMENOrdering Facility: [facility] Address: [address] [place] [address] Performed By: #### 5 7021-8 ####[facility] RIDGEWNCLIA [id number] [address] LABORATORYCLIA [id number] [place] [address] [place] Hemoglobin (Bld) [Mass/Vol] 9.3 g/dL Low 13.0-17.0 [facility] Comment on above: Order Comment: Speci men Type: BLOOD SPECIMENOrdering Facility: [facility] Address: [address] [place] [address] Performed By: #### 5 7021-8 ####[facility] RIDGEWSDLIA [id number] [address] LABORATORYCLIA [id number] [address] STATES [facility] Lymphocytes (Bld) [#/Vol] 0.81 10*3/uL Low 1.00-4.00 [facility] Comment on above: Order Comment: Speci men Type: BLOOD SPECIMENOrdering Facility: [facility] Address: [address] [place] [address] Performed By: #### 5 7021-8 ####[facility] [id number] [address] LABORATORYCLIA [id number] [place] [address] [place] Lymphocytes/100 WBC (Bld) 38.0 % Normal [facility] Comment on above: Order Comment: Speci men Type: BLOOD SPECIMENOrdering Facility: [facility] Address: [address] [place] [address] Performed By: #### 5 7021-8 ####[facility] [id number] [address] LABORATORYCLIA [id number] [place] [address] [place] MCH (RBC) [Entitic mass] 35.2 pg High 26.0-34.0 [facility] Comment on above: Order Comment: Speci men Type: BLOOD SPECIMENOrdering Facility: [facility] Address: [address] [place] [address] Performed By: #### 5 7021-8 ####[facility] [id number] [address] LABORATORYCLIA [id number] [place] [address] [place] MCHC (RBC) [Mass/Vol] 34.7 g/dL Normal 30.5-36.0 [facility] Comment on above: Order Comment: Speci men Type: BLOOD SPECIMENOrdering Facility: [facility] Address: [address] [place] [address] Performed By: #### 5 7021-8 ####[facility] [id number] [address] LABORATORYCLIA [id number] [place] [address] [place] MCV (RBC) [Entitic vol] 101.5 fL High 80.0-100.0 [facility] Comment on above: Order Comment: Speci men Type: BLOOD SPECIMENOrdering Facility: [facility] Address: [address] [place] [address] Performed By: #### 5 7021-8 ####[facility] [id number] [address] LABORATORYCLIA [id number] [place] [address] [place] Monocytes (Bld) [#/Vol] 0.24 10*3/uL Normal <0.87 [facility] Comment on above: Order Comment: Speci men Type: BLOOD SPECIMENOrdering Facility: [facility] Address: [address] [place] [address] Performed By: #### 5 7021-8 ####[facility] MILLTOWNCLIA [id number] [address] LABORATORYCLIA [id number] [place] [address] [place] Monocytes/100 WBC (Bld) 11.0 % Normal [facility] Comment on above: Order Comment: Speci men Type: BLOOD SPECIMENOrdering Facility: [facility] Address: [address] [place] [address] Performed By: #### 5 7021-8 ####[facility] RIDGEWNCLIA [id number] [address] LABORATORYCLIA [id number] [place] [address] [place] Neutrophils (Bld) [#/Vol] 0.98 10*3/uL Low 1.45-7.50 [facility] Comment on above: Order Comment: Speci men Type: BLOOD SPECIMENOrdering Facility: [facility] Address: [address] [place] [address] Performed By: #### 5 7021-8 ####[facility] MILLTOWNCLIA [id number] [address] LABORATORYCLIA [id number] [place] [address] [place] Neutrophils/100 WBC (Bld) 46.0 % Normal [facility] Comment on above: Order Comment: Speci men Type: BLOOD SPECIMENOrdering Facility: [facility] Address: [address] [place] [address] Performed By: #### 5 7021-8 ####[facility] MILLTOWNCLIA [id number] [address] LABORATORYCLIA [id number] [address] [place] Nucleated RBC (Bld) [#/Vol] 10*3/uL Normal <0.01 [facility] Comment on above: Order Comment: Speci men Type: BLOOD SPECIMENOrdering Facility: [facility] Address: [address] [place] [address] Performed By: #### 5 7021-8 ####[facility]GEWSDLIA [id number] [address] LABORATORYCLIA [id number] [place] [address] [place] Nucleated RBC/100 WBC (Bld) [Ratio] 0.0 /100 WBC Normal [facility] Comment on above: Order Comment: Speci men Type: BLOOD SPECIMENOrdering Facility: [facility] Address: [address] [place] [address] Performed By: #### 5 7021-8 ####[facility] [id number] [address] LABORATORYCLIA [id number] [place] [address] [place] Ovalocytes LM Ql (Bld) Few Normal Cl [facility] Comment on above: Order Comment: Speci men Type: BLOOD SPECIMENOrdering Facility: [facility] Address: [address] [place] [address] Performed By: #### 5 7021-8 ####[facility] [id number] [address] LABORATORYCLIA [id number] [place] [address] [place] Platelet mean volume (Bld) [Entitic vol] 9.1 fL Normal 9.0-12.7 [facility] Comment on above: Order Comment: Speci men Type: BLOOD SPECIMENOrdering Facility: [facility] Address: [address] [place] [address] Performed By: #### 5 7021-8 ####[facility] MILLTOWNCLIA [id number] [address] LABORATORYCLIA [id number] [address] Platelets (Bld) [#/Vol] 122 10*3/uL Low 150-400 [facility] Comment on above: Order Comment: Speci men Type: BLOOD SPECIMENOrdering Facility: [facility] Address: [address] [place] [address] Result Comment: No c lot detected. Performed By: #### 5 7021-8 ####[facility] [id number] [address] LABORATORYCLIA [id number] [place] [address] [place] Platelets Estimate (Bld) [#/Vol] Decreased Normal [facility] Comment on above: Order Comment: Speci men Type: BLOOD SPECIMENOrdering Facility: [facility] Address: [address] [place] [address] Performed By: #### 5 7021-8 ####[facility]ENCL[facility] [id number] [address] LABORATORYCLIA [id number] [place] [address] [place] RBC (Bld) [#/Vol] 2.64 10*6/uL Low 4.20-6.00 [facility] Comment on above: Order Comment: Speci men Type: BLOOD SPECIMENOrdering Facility: [facility] Address: [address] [place] [address] Performed By: #### 5 7021-8 ####[facility]GEWNCLIA [id number] [address] [facility] LABORATORYCLIA [id number] [place] [address] [place] RED CELL MORPH Reviewed: see result s of individual morphologies [facility] Comment on above: Order Comment: Speci men Type: BLOOD SPECIMENOrdering Facility: [facility] Address: [address] [place] [address] Performed By: #### 5 7021-8 ####[facility] [id number] [address] LABORATORYCLIA [id number] [place] [address] [place] WBC (Bld) [#/Vol] 2.14 10*3/uL Low 3.70-11.00 [facility] Comment on above: Order Comment: Speci men Type: BLOOD SPECIMENOrdering Facility: [facility] Address: [address] [place] [address] Performed By: #### 5 7021-8 ####[facility] [id number] [address] LABORATORYCLIA [id number] [address] [place] CNPNon 06-04-2025 CNPN Normal [facility] ED NOTEon 06-04-2025 ED NOTE HNO ID: [id number] Author: KAEL LYONS RN Service: Behavioral Health Author Type: Registered Nurse Type: ED Notes Filed: 06/04/2025 19:55 Note Text: Pt ambulated to nurse station with steady gait stating he wants to leave and just have his doctor look at the results tomorrow. Pt did not want to wait for the provider to speak with him before leaving AMA. This nurse did speak to pt about benefits of waiting to speak to the provider before leaving, pt did not want to wait. Pt left with all belongings. [facility] ED NOTE HNO ID: [id number] Author: ANNABEL MEDINA, HIMANSHU Service: ? Author Type: Registered Nurse Type: ED Notes Filed: 06/04/2025 18:49 Note Text: US at bedside [facility] ED PROV NOTEon 06-04-2025 ED PROV NOTE HNO ID: [id number] Author: ZOFIA MONTEZ APRN.CNP Service: ? Author Type: Nurse Practitioner Type: ED Provider Notes Filed: 06/04/2025 20:30 Note Text: ED Provider Note Patient Name: Russell Vaughn : 1945 SERVICE DATE: 06/04/25 History Patient presents with: Edema: Patient presents to ED with CC of RLE edema that he noticed for the first time today. Patient is being treated for Galbladder cancer at [facility]. His last chemo session was last Tuesday. Patient denies pain or injury to leg. Redness and swelling noted on assessment in triage. Patient denies Shortness of Breath. 79-year-old male presents to the emergency department with right leg swelling for the last 2 to 3 days. He states he was outpatient getting an MRI today and the tech had advised him to get checked for a blood clot because his right leg looks swollen. 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 He denies any pain or tenderness. No chest pain or shortness of breath. No palpitations. History provided by: Patient legal administrative secretary used: No PAST MEDICAL HISTORY Diagnosis Date Adenocarcinoma (HCC) 12/25/2024 Gallbladder Diverticulosis of colon (without mention of hemorrhage) Erectile dysfunction GERD (gastroesophageal reflux disease) Internal hemorrhoids without mention of complication Nocturia Other and unspecified hyperlipidemia Prediabetes Unspecified essential hypertension Unspecified hypothyroidism PAST SURGICAL HISTORY Procedure Laterality Date COLONOSCOPY FLX DX W/COLLJ SPEC WHEN PFRMD 12/09/1999 FLEXIBLE SIGMOIDOSCOPY COLONOSCOPY FLX DX W/COLLJ SPEC WHEN PFRMD 10/02/2007 COLONOSCOPY SCREENING 12/18/2024 PAST SURGICAL HISTORY OF hydrocele repair PAST SURGICAL HISTORY OF 12/25/2024 Exploratory laparscopy with biopsies REPAIR INGUINAL HERNIA Right 10/22/2019 Dr. Annel Bradshaw, [facility] FAMILY HISTORY Problem Relation Age of Onset Emphysema Mother other (no siblings) Mother Diabetes Father Social History[1] ALLERGIES No Known Allergies Review of Systems Constitutional: Negative for chills and fever. HENT: Negative for congestion and sore throat. Eyes: Negative. Respiratory: Negative for cough, shortness of breath and wheezing. Cardiovascular: Positive for leg swelling. Negative for chest pain and palpitations. Gastrointestinal: Negative for abdominal pain, nausea and vomiting. Endocrine: Negative. Genitourinary: Negative for dysuria and frequency. Musculoskeletal: Negative for arthralgias and myalgias. Skin: Negative for rash and wound. Allergic/Immunologic: Negative. Neurological: Negative for dizziness, syncope and light-headedness. Hematological: Negative for adenopathy. Does not bruise/bleed easily. Psychiatric/Behavioral: Negative. Physical Exam Vitals [06/04/25 1739] BP Pulse Temp Temp src Resp SpO2 Weight Height 97/64 (!) 93 36.7 ?C (98.1 ?F) Oral 20 95 % 68.5 kg (151 lb) -- Physical Exam Vitals and nursing note reviewed. Constitutional: General: He is not in acute distress. Appearance: Normal appearance. He is not toxic-appearing. HENT: Head: Normocephalic and atraumatic. Cardiovascular: Rate and Rhythm: Normal rate and regular rhythm. Pulses: Normal pulses. Pulmonary: Effort: Pulmonary effort is normal. Breath sounds: Normal breath sounds. No wheezing, rhonchi or rales. Abdominal: General: Bowel sounds are normal. Palpations: Abdomen is soft. Tenderness: There is no abdominal tenderness. Musculoskeletal: Right hip: Normal. Normal range of motion. Right upper leg: Normal. No swelling. Right knee: Swelling present. Right lower leg: No tenderness. 2+ Edema present. Left lower leg: No swelling or tenderness. Right foot: Normal capillary refill. Swelling present. Normal pulse. Skin: General: Skin is warm. Capillary Refill: Capillary refill takes less than 2 seconds. Neurological: Mental Status: He is alert and oriented to person, place, and time. Psychiatric: Mood and Affect: Mood normal. Behavior: Behavior normal. Behavior is cooperative. Diagnostic Testing ED Labs Ordered and Reviewed - No data to display Procedures ED Course / Clinical Impression Clinical Impressions as of 06/04/25 2030 Right leg swelling On antineoplastic chemotherapy MDM / Disposition / Plan Vital signs, triage records and nursing notes were reviewed and incorporated. Patient is a 79 year old male who presents today with right leg swelling for 2 days. Physical exam reveals non-toxic appearing male, AANDOX3, neurologically intact, breathing is unlabored, no use of accessory muscles. Heart rate and rhythm are regular. Lungs are clear. Abdomen is soft, nondistended, nontender. 2+ pitting edema in the right lower extremity, DP pulses palpable. Vital signs are stable on initial exam. History and Record Review External record(s) reviewed: prior outpatient record. Findings f (more content not included)... Normal [facility] MRI LIVER (EOVIST) WO/W IVCO Non 06-04-2025 MRI LIVER (EOVIST) WO/W IVCON Normal [facility] US DVT LOWER RTon 06-04-2025 US DVT LOWER RT * * *Final Report* * * DATE OF EXAM: Jun 04 2025 7:07PM MDSrini 1007 - US DVT LOWER RT / PROCEDURE REASON: Leg pain or tenderness * * * * Physician Interpretation * * * * EXAMINATION: RIGHT LOWER EXTREMITY DEEP VENOUS ULTRASOUND WITH DOPPLER IMAGING CLINICAL HISTORY: Right leg pain. Leg pain or tenderness TECHNIQUE: Grayscale with compression maneuvers, color Doppler and spectral Doppler imaging of the right proximal deep veins was performed. Grayscale with compression maneuvers of the right peroneal and posterior tibial veins was performed. The right great and small saphenous veins were evaluated at their insertion to the deep system. Comparison images of the left common femoral vein also acquired Images were obtained and stored in a permanent archive. RESULT: There is normal compressibility, color Doppler flow and response to augmentation in the examined deep venous structures of the right lower extremity from the groin to the knee. The deep venous structures in the calf exhibit normal Color Doppler flow, response to augmentation and compressibility. The superficial venous structures are unremarkable, where visualized. Normal evaluation of the comparison left common femoral vein. IMPRESSION: No evidence for deep vein thrombus in the right leg, where visualized. Ship'S Pilot: PSCB Transcribe Date/Time: Jun 04 2025 7:59P Dictated by : DARLENE GALAVIZ MD This examination was interpreted and the report reviewed and electronically signed by: DARLENE GALAVIZ MD on Jun 04 2025 7:59PM EST [id number] Normal [facility] CBC W Auto Differential pane l (Bld)on 06-03-2025 Basophils (Bld) [#/Vol] 0.00 10*3/uL Normal <0.11 [facility] Comment on above: Order Comment: Speci men Type: BLOOD SPECIMENOrdering Facility: [facility] Address: [address] [place] [address] Performed By: #### 5 7021-8 ####[facility] MILLTOWNCLIA [id number] [address] LABORATORYCLIA [id number] [place] [address] [place] Basophils/100 WBC (Bld) 0.0 % Normal [facility] Comment on above: Order Comment: Speci men Type: BLOOD SPECIMENOrdering Facility: [facility] Address: [address] [place] [address] Performed By: #### 5 7021-8 ####[facility] MILLTOWNCLIA [id number] [address] LABORATORYCLIA [id number] [address] STATES OF [facility] Differential cell count method Nom (Bld) Manual Normal [facility] Comment on above: Order Comment: Speci men Type: BLOOD SPECIMENOrdering Facility: [facility] Address: [address] [place] [address] Performed By: #### 5 7021-8 ####[facility] MILLTOWNCLIA [id number] [address] LABORATORYCLIA [id number] [place] [address] [place] Eosinophils (Bld) [#/Vol] 0.26 10*3/uL Normal <0.46 [facility] Comment on above: Order Comment: Speci men Type: BLOOD SPECIMENOrdering Facility: [facility] Address: [address] [place] [address] Performed By: #### 5 7021-8 ####[facility]ITALTOWNCLIA [id number] [address] LABORATORYCLIA [id number] [place] [address] [place] Eosinophils/100 WBC (Bld) 14.0 % Normal [facility] Comment on above: Order Comment: Speci men Type: BLOOD SPECIMENOrdering Facility: [facility] Address: [address] [place] [address] Performed By: #### 5 7021-8 ####[facility] [id number] [address] LABORATORYIA [id number] [place] [address] [place] Erythrocyte distribution width (RBC) [Ratio] 15.3 % High 11.5-15.0 [facility] Comment on above: Order Comment: Speci men Type: BLOOD SPECIMENOrdering Facility: [facility] Address: [address] [place] [address] Performed By: #### 5 7021-8 ####[facility] [id number] [address] LABORATORYCLIA [id number] [place] [address] [place] Hematocrit (Bld) [Volume fraction] 25.6 % Low 39.0-51.0 [facility] Comment on above: Order Comment: Speci men Type: BLOOD SPECIMENOrdering Facility: [facility] Address: [address] [place] [address] Performed By: #### 5 7021-8 ####[facility]GEWNCLIA [id number] [address] LABORATORYCLIA [id number] [place] [address] [place] Hemoglobin (Bld) [Mass/Vol] 8.8 g/dL Low 13.0-17.0 [facility] Comment on above: Order Comment: Speci men Type: BLOOD SPECIMENOrdering Facility: [facility] Address: [address] [place] [address] Performed By: #### 5 7021-8 ####[facility] RIDGEWSDLIA [id number] [address] LABORATORYCLIA [id number] [place] [address] [place] Lymphocytes (Bld) [#/Vol] 0.57 10*3/uL Low 1.00-4.00 [facility] Comment on above: Order Comment: Speci men Type: BLOOD SPECIMENOrdering Facility: [facility] Address: [address] [place] [address] Performed By: #### 5 7021-8 ####[facility] [id number] [address] LABORATORYCLIA [id number] [place] [address] [place] Lymphocytes/100 WBC (Bld) 31.0 % Normal [facility] Comment on above: Order Comment: Speci men Type: BLOOD SPECIMENOrdering Facility: [facility] Address: [address] [place] [address] Performed By: #### 5 7021-8 ####[facility] [id number] [address] LABORATORYCLIA [id number] [place] [address] [place] MCH (RBC) [Entitic mass] 35.2 pg High 26.0-34.0 [facility] Comment on above: Order Comment: Speci men Type: BLOOD SPECIMENOrdering Facility: [facility] Address: [address] [place] [address] Performed By: #### 5 7021-8 ####[facility] MILLTOWNCLIA [id number] [address] LABORATORYCLIA [id number] [address] MCHC (RBC) [Mass/Vol] 34.4 g/dL Normal 30.5-36.0 [facility] Comment on above: Order Comment: Speci men Type: BLOOD SPECIMENOrdering Facility: [facility] Address: [address] [place] [address] Performed By: #### 5 7021-8 ####[facility]ITALLIA [id number] [address] LABORATORYCLIA [id number] [address] STATES OF [facility] MCV (RBC) [Entitic vol] 102.4 fL High 80.0-100.0 [facility] Comment on above: Order Comment: Speci men Type: BLOOD SPECIMENOrdering Facility: [facility] Address: [address] [place] [address] Performed By: #### 5 7021-8 ####[facility] PINE RIDGEWNCLIA [id number] [address] LABORATORYCLIA [id number] [address] OF [facility] Monocytes (Bld) [#/Vol] 0.09 10*3/uL Normal <0.87 [facility] Comment on above: Order Comment: Speci men Type: BLOOD SPECIMENOrdering Facility: [facility] Address: [address] [place] [address] Performed By: #### 5 7021-8 ####[facility] MILLTOWNCLIA [id number] [address] LABORATORYCLIA [id number] [place] [address] [place] Monocytes/100 WBC (Bld) 5.0 % Normal [facility] Comment on above: Order Comment: Speci men Type: BLOOD SPECIMENOrdering Facility: [facility] Address: [address] [place] [address] Performed By: #### 5 7021-8 ####[facility] MILLTOWNCLIA [id number] [address] LABORATORYCLIA [id number] [place] [address] [place] Neutrophils (Bld) [#/Vol] 0.92 10*3/uL Low 1.45-7.50 [facility] Comment on above: Order Comment: Speci men Type: BLOOD SPECIMENOrdering Facility: [facility] Address: [address] [place] [address] Performed By: #### 5 7021-8 ####[facility] P[facility] RIDGEWNCLIA [id number] [address] LABORATORYCLIA [id number] [place] [address] [place] Neutrophils/100 WBC (Bld) 50.0 % Normal [facility] Comment on above: Order Comment: Speci men Type: BLOOD SPECIMENOrdering Facility: [facility] Address: [address] [place] [address] Performed By: #### 5 7021-8 ####[facility] MILLTOWNCLIA [id number] [address] LABORATORYCLIA [id number] [place] [address] [place] Nucleated RBC (Bld) [#/Vol] 10*3/uL Normal <0.01 [facility] Comment on above: Order Comment: Speci men Type: BLOOD SPECIMENOrdering Facility: [facility] Address: [address] [place] [address] Performed By: #### 5 7021-8 ####[facility] HOSPITALARELISNIHARIKALIA [id number] [address] LABORATORYCLIA [id number] [address] OF [place] Nucleated RBC/100 WBC (Bld) [Ratio] 0.0 /100 WBC Normal [facility] Comment on above: Order Comment: Speci men Type: BLOOD SPECIMENOrdering Facility: [facility] Address: [address] [place] [address] Performed By: #### 5 7021-8 ####[facility]VILLENCLI [id number] [address] LABORATORYCLIA [id number] [address] OF [place] Platelet mean volume (Bld) [Entitic vol] 9.1 fL Normal 9.0-12.7 [facility] Comment on above: Order Comment: Speci men Type: BLOOD SPECIMENOrdering Facility: [facility] Address: [address] [place] [address] Performed By: #### 5 7021-8 ####[facility]VILLERASHAD [id number] [address] LABORATORYCLIA [id number] [place] [address] [place] [facility] Platelets (Bld) [#/Vol] 151 10*3/uL Normal 150-400 [facility] Comment on above: Order Comment: Speci men Type: BLOOD SPECIMENOrdering Facility: [facility] Address: [address] [place] [address] Result Comment: No c lot detected. Performed By: #### 5 7021-8 ####[facility] PARKWAYA [id number] [address] LABORATORYCLIA [id number] [place] [address] [place] Platelets Estimate (Bld) [#/Vol] Adequate Normal [facility] Comment on above: Order Comment: Speci men Type: BLOOD SPECIMENOrdering Facility: [facility] Address: [address] [place] [address] Performed By: #### 5 7021-8 ####[facility]ITALLIA [id number] [address] LABORATORYCLIA [id number] [place] [address] [place] RBC (Bld) [#/Vol] 2.50 10*6/uL Low 4.20-6.00 [facility] Comment on above: Order Comment: Speci men Type: BLOOD SPECIMENOrdering Facility: [facility] Address: [address] [place] [address] Performed By: #### 5 7021-8 ####[facility]ALLIA [id number] [address] LABORATORYCLIA [id number] [place] [address] [place] RED CELL MORPH Reviewed: unremarkable Normal [facility] Comment on above: Order Comment: Speci men Type: BLOOD SPECIMENOrdering Facility: [facility] Address: [address] [place] [address] Performed By: #### 5 7021-8 ####[facility]ALL[facility] [id number] [address] LABORATORYCLIA [id number] [place] [address] [place] WBC (Bld) [#/Vol] 1.83 10*3/uL Low 3.70-11.00 [facility] Comment on above: Order Comment: Speci men Type: BLOOD SPECIMENOrdering Facility: [facility] Address: [address] [place] [address] Performed By: #### 5 7021-8 ####[facility]VILLENCLI [id number] [address] LABORATORYCLIA [id number] [address] CBC W Auto Differential pane l (Bld)on 05-27-2025 Basophils (Bld) [#/Vol] 0.03 10*3/uL Normal <0.11 [facility] Comment on above: Order Comment: Speci men Type: BLOOD SPECIMENOrdering Facility: [facility] Address: [address] [place] [address] Performed By: #### 5 7021-8 ####[facility]VILLENCA [id number] [place] [address] [place] Basophils/100 WBC (Bld) 0.6 % Normal [facility] Comment on above: Order Comment: Speci men Type: BLOOD SPECIMENOrdering Facility: [facility] Address: [address] [place] [address] Performed By: #### 5 7021-8 ####[facility]VILLENCJORD[facility] [id number] [place] [address] [place] Differential cell count method Nom (Bld) Auto Normal [facility] Comment on above: Order Comment: Speci men Type: BLOOD SPECIMENOrdering Facility: [facility] Address: [address] [place] [address] Performed By: #### 5 7021-8 ####[facility]VILLENCLIA [id number] [place] [address] [place] Eosinophils (Bld) [#/Vol] 0.57 10*3/uL High <0.46 [facility] Comment on above: Order Comment: Speci men Type: BLOOD SPECIMENOrdering Facility: [facility] Address: [address] [place] [address] Performed By: #### 5 7021-8 ####[facility]VILLENCJORD[facility] [id number] [place] [address] [place] Eosinophils/100 WBC (Bld) 12.3 % Normal [facility] Comment on above: Order Comment: Speci men Type: BLOOD SPECIMENOrdering Facility: [facility] Address: [address] [place] [address] Performed By: #### 5 7021-8 ####[facility]VILLENCJORD[facility] [id number] [place] [address] [place] Erythrocyte distribution width (RBC) [Ratio] 16.5 % High 11.5-15.0 [facility] Comment on above: Order Comment: Speci men Type: BLOOD SPECIMENOrdering Facility: [facility] Address: [address] [place] [address] Performed By: #### 5 7021-8 ####[facility] [id number] [place] [address] [place] Hematocrit (Bld) [Volume fraction] 28.5 % Low 39.0-51.0 [facility] Comment on above: Order Comment: Speci men Type: BLOOD SPECIMENOrdering Facility: [facility] Address: [address] [place] [address] Performed By: #### 5 7021-8 ####[facility]ITALLIA [id number] [place] [address] [place] Hemoglobin (Bld) [Mass/Vol] 9.4 g/dL Low 13.0-17.0 [facility] Comment on above: Order Comment: Speci men Type: BLOOD SPECIMENOrdering Facility: [facility] Address: [address] [place] [address] Performed By: #### 5 7021-8 ####[facility] MILLWNCLIA [id number] [place] [address] [place] Immature granulocytes (Bld) [#/Vol] 10*3/uL Normal <0.10 [facility] Comment on above: Order Comment: Speci men Type: BLOOD SPECIMENOrdering Facility: [facility] Address: [address] [place] [address] Performed By: #### 5 7021-8 ####[facility]VILLENCLIA [id number] [place] [address] [place] Immature granulocytes/100 WBC (Bld) 0.2 % Normal [facility] Comment on above: Order Comment: Speci men Type: BLOOD SPECIMENOrdering Facility: [facility] Address: [address] [place] [address] Performed By: #### 5 7021-8 ####[facility]ITALLIA [id number] [place] [address] [place] Lymphocytes (Bld) [#/Vol] 0.94 10*3/uL Low 1.00-4.00 [facility] Comment on above: Order Comment: Speci men Type: BLOOD SPECIMENOrdering Facility: [facility] Address: [address] [place] [address] Performed By: #### 5 7021-8 ####[facility] P[facility] RIDGEWNCLIA [id number] [place] [address] [place] Lymphocytes/100 WBC (Bld) 20.3 % Normal [facility] Comment on above: Order Comment: Speci men Type: BLOOD SPECIMENOrdering Facility: [facility] Address: [address] [place] [address] Performed By: #### 5 7021-8 ####[facility]ITALLIA [id number] [place] [address] [place] MCH (RBC) [Entitic mass] 34.8 pg High 26.0-34.0 [facility] Comment on above: Order Comment: Speci men Type: BLOOD SPECIMENOrdering Facility: [facility] Address: [address] [place] [address] Performed By: #### 5 7021-8 ####[facility]ERASHAD [id number] [place] [address] [place] MCHC (RBC) [Mass/Vol] 33.0 g/dL Normal 30.5-36.0 [facility] Comment on above: Order Comment: Speci men Type: BLOOD SPECIMENOrdering Facility: [facility] Address: [address] [place] [address] Performed By: #### 5 7021-8 ####[facility]VILLENCWINIFRED [id number] [place] [address] [place] MCV (RBC) [Entitic vol] 105.6 fL High 80.0-100.0 [facility] Comment on above: Order Comment: Speci men Type: BLOOD SPECIMENOrdering Facility: [facility] Address: [address] [place] [address] Performed By: #### 5 7021-8 ####[facility] [id number] [place] [address] [place] Monocytes (Bld) [#/Vol] 0.76 10*3/uL Normal <0.87 [facility] Comment on above: Order Comment: Speci men Type: BLOOD SPECIMENOrdering Facility: [facility] Address: [address] [place] [address] Performed By: #### 5 7021-8 ####[facility]VILLENCLIA [id number] [place] [address] [place] Monocytes/100 WBC (Bld) 16.4 % Normal [facility] Comment on above: Order Comment: Speci men Type: BLOOD SPECIMENOrdering Facility: [facility] Address: [address] [place] [address] Performed By: #### 5 7021-8 ####[facility] MICKIFRANKLINHAIMLIA [id number] [place] [address] [place] Neutrophils (Bld) [#/Vol] 2.32 10*3/uL Normal 1.45-7.50 [facility] Comment on above: Order Comment: Speci men Type: BLOOD SPECIMENOrdering Facility: [facility] Address: [address] [place] [address] Performed By: #### 5 7021-8 ####[facility] [id number] [place] [address] [place] Neutrophils/100 WBC (Bld) 50.2 % Normal [facility] Comment on above: Order Comment: Speci men Type: BLOOD SPECIMENOrdering Facility: [facility] Address: [address] [place] [address] Performed By: #### 5 7021-8 ####[facility] PARKWAYA [id number] [place] [address] [place] Nucleated RBC (Bld) [#/Vol] 10*3/uL Normal <0.01 [facility] Comment on above: Order Comment: Speci men Type: BLOOD SPECIMENOrdering Facility: [facility] Address: [address] [place] [address] Performed By: #### 5 7021-8 ####[facility] [id number] [place] [address] [place] Nucleated RBC/100 WBC (Bld) [Ratio] 0.0 /100 WBC Normal [facility] Comment on above: Order Comment: Speci men Type: BLOOD SPECIMENOrdering Facility: [facility] Address: [address] [place] [address] Performed By: #### 5 7021-8 ####[facility] MILLTOWNCLIA [id number] [place] [address] [place] Platelet mean volume (Bld) [Entitic vol] 8.7 fL Low 9.0-12.7 [facility] Comment on above: Order Comment: Speci men Type: BLOOD SPECIMENOrdering Facility: [facility] Address: [address] [place], [place] [address] Performed By: #### 5 7021-8 ####[facility] PINE RIDGEWNCLIA [id number] [place] [address] [place] Platelets (Bld) [#/Vol] 215 10*3/uL Normal 150-400 [facility] Comment on above: Order Comment: Speci men Type: BLOOD SPECIMENOrdering Facility: [facility] Address: [address] [place], [place] [address] Performed By: #### 5 7021-8 ####[facility]VILLENCLIA [id number] [place] [address] [place] RBC (Bld) [#/Vol] 2.70 10*6/uL Low 4.20-6.00 [facility] Comment on above: Order Comment: Speci men Type: BLOOD SPECIMENOrdering Facility: [facility] Address: [address] [place] [address] Performed By: #### 5 7021-8 ####[facility] P[facility] RIDGEWNCLIA [id number] [place] [address] [place] WBC (Bld) [#/Vol] 4.63 10*3/uL Normal 3.70-11.00 [facility] Comment on above: Order Comment: Speci men Type: BLOOD SPECIMENOrdering Facility: [facility] Address: [address] [place], [place] [address] Performed By: #### 5 7021-8 ####[facility]VILLENCLIA [id number] [place] [address] [place] CNADon 05-27-2025 RUSSELL ENGLISH ([id number]) 1945 M Date Time Provider Department 05/27/25 HAI ESPARZAROBERT Normal [facility] CNOVSPon 05-27-2025 CNOVSP Normal [facility] Comprehensive metabolic 2000 panelon 05-27-2025 Albumin [Mass/Vol] 3.7 g/dL Low 3.9-4.9 [facility] Comment on above: Order Comment: Speci men Type: BLOOD SPECIMENOrdering Facility: [facility] Address: [address] [place] [address] Performed By: #### 2 4323-8 ####[facility] [id number] [place] [address] [place] ALP [Catalytic activity/Vol] 202 U/L High 38-113 [facility] Comment on above: Order Comment: Speci men Type: BLOOD SPECIMENOrdering Facility: [facility] Address: [address] [place] [address] Performed By: #### 2 4323-8 ####[facility] [id number] [place] [address] [place] ALT [Catalytic activity/Vol] 16 U/L Normal 10-54 [facility] Comment on above: Order Comment: Speci men Type: BLOOD SPECIMENOrdering Facility: [facility] Address: [address] [place] [address] Performed By: #### 2 4323-8 ####[facility] [id number] [place] [address] [place] Anion gap [Moles/Vol] 13 mmol/L Normal 8-15 [facility] Comment on above: Order Comment: Speci men Type: BLOOD SPECIMENOrdering Facility: [facility] Address: [address] [place], [place] [address] Performed By: #### 2 4323-8 ####[facility] MILLTOWNCLIA [id number] [place] [address] [place] AST [Catalytic activity/Vol] 30 U/L Normal 14-40 [facility] Comment on above: Order Comment: Speci men Type: BLOOD SPECIMENOrdering Facility: [facility] Address: [address] [place] [address] Performed By: #### 2 4323-8 ####[facility] P[facility] RIDGEWNCLIA [id number] [place] [address] [place] Bilirubin [Mass/Vol] 0.4 mg/dL Normal 0.2-1.3 [facility] Comment on above: Order Comment: Speci men Type: BLOOD SPECIMENOrdering Facility: [facility] Address: [address] [place] [address] Performed By: #### 2 4323-8 ####[facility] [id number] [place] [address] [place] Calcium [Mass/Vol] 9.6 mg/dL Normal 8.5-10.2 [facility] Comment on above: Order Comment: Speci men Type: BLOOD SPECIMENOrdering Facility: [facility] Address: [address] [place] [address] Performed By: #### 2 4323-8 ####[facility] MILLTOWNCLIA [id number] [place] [address] [place] Chloride [Moles/Vol] 99 mmol/L Normal 98-107 [facility] Comment on above: Order Comment: Speci men Type: BLOOD SPECIMENOrdering Facility: [facility] Address: [address] [place] [address] Performed By: #### 2 4323-8 ####[facility]VILLENCLIA [id number] [place] [address] [place] CO2 [Moles/Vol] 25 mmol/L Normal 22-30 [facility] Comment on above: Order Comment: Speci men Type: BLOOD SPECIMENOrdering Facility: [facility] Address: [address] [place] [address] Performed By: #### 2 4323-8 ####[facility]ILLENCJORD[facility] [id number] [place] [address] [place] Creatinine [Mass/Vol] 0.93 mg/dL Normal 0.73-1.22 [facility] Comment on above: Order Comment: Speci men Type: BLOOD SPECIMENOrdering Facility: [facility] Address: [address] [place] [address] Performed By: #### 2 4323-8 ####[facility]ENCJ[facility] [id number] [place] [address] [place] eGFRcr SerPlBld CKD-EPI 2020 85 mL/min/1.73m??? Normal >=60 [facility] Comment on above: Order Comment: Speci men Type: BLOOD SPECIMENOrdering Facility: [facility] Address: [address] [place] [address] Result Comment: Lulu mated Glomerular Filtration Rate (eGFR) is calculated using the 2020 CKD-EPI creatinine equation. This equation utilizes serum creatinine, sex, and age as parameters. The creatinine assay has traceable calibration to isotope dilution-mass spectrometry. Refer to KDIGO guidelines for clinical interpretation. In patients with unstable renal function, e.g. those with acute kidney injury, the eGFR may not accurately reflect actual GFR. Performed By: #### 2 4323-8 ####[facility]VILLENCLIA [id number] [place] [address] [place] Glucose [Mass/Vol] 141 mg/dL High 74-99 [facility] Comment on above: Order Comment: Speci men Type: BLOOD SPECIMENOrdering Facility: [facility] Address: [address] [place] [address] Result Comment: The [place] [employer] (ADA) provides guidance for cutoff values for fasting glucose and random glucose. The ADA defines fasting as no caloric intake for at least 8 hours. Fasting plasma glucose results between 100 to 125 mg/dL indicate increased risk for diabetes (prediabetes).Fasting plasma glucose results greater than or equal to 126 mg/dL meet the criteria for diagnosis of diabetes. In the absence of unequivocal hyperglycemia, results should be confirmed by repeat testing. In a patient with classic symptoms of hyperglycemia or hyperglycemic crisis, random plasma glucose results greater than or equal to 200 mg/dL meet the criteria for diagnosis of diabetes.Reference: Standards of Medical Care in Diabetes 2016, [place] [employer]. Diabetes Care. 2016.39(Suppl 1). Performed By: #### 2 4323-8 ####[facility] [id number] [place] [address] [place] Potassium [Moles/Vol] 4.2 mmol/L Normal 3.7-5.1 [facility] Comment on above: Order Comment: Speci men Type: BLOOD SPECIMENOrdering Facility: [facility] Address: [address] [address] Performed By: #### 2 4323-8 ####[facility]ITALWINIFRED [id number] [place] [address] [place] Protein [Mass/Vol] 7.0 g/dL Normal 6.3-8.0 [facility] Comment on above: Order Comment: Speci men Type: BLOOD SPECIMENOrdering Facility: [facility] Address: [address] [address] Performed By: #### 2 4323-8 ####[facility] PARKWAYTiffani [id number] [place] [address] [place] Sodium [Moles/Vol] 137 mmol/L Normal 136-144 [facility] Comment on above: Order Comment: Speci men Type: BLOOD SPECIMENOrdering Facility: [facility] Address: [address] [address] Performed By: #### 2 4323-8 ####[facility] MILLTOWNCLIA [id number] [place] [address] [place] Urea nitrogen [Mass/Vol] 25 mg/dL High 9-24 [facility] Comment on above: Order Comment: Speci men Type: BLOOD SPECIMENOrdering Facility: [facility] Address: [address] [place] [address] Performed By: #### 2 4323-8 ####[facility] MILLTOWNCLIA [id number] [place] [address] [place] Cortis SerPl-mCncon 05-27-20 25 Cortisol [Mass/Vol] 2.7 ug/dL Low 4.8-19.5 [facility] Comment on above: Order Comment: Speci men Type: BLOOD SPECIMENOrdering Facility: [facility] Address: [address] [place] [address] Result Comment: Prov ided reference range is from 6-10 AM sample collection time.Cortisol Reference Range: 6-10 AM = 4.8-19.5 ug/dL, 4-8 PM = 2.5-11.9 ug/dL Performed By: #### 2 143-6, 3016-3, 3024-7 ####[facility] LABCLIA [id number] [place] [address] [place] T4 Free SerPl-mCncon 025 Free T4 [Mass/Vol] 1.2 ng/dL Normal 0.9-1.7 [facility] Comment on above: Order Comment: Speci men Type: BLOOD SPECIMENOrdering Facility: [facility] Address: [address] [place] [address] Performed By: #### 2 143-6, 3016-3, 3024-7 ####[facility] LABCLIA [id number] [place] [address] [place] TSH SerPl-aCncon 05-27-2025 TSH Qn 0.420 m[IU]/L Normal 0.270-4.200 [facility] Comment on above: Order Comment: Speci men Type: BLOOD SPECIMENOrdering Facility: [facility] Address: [address] [place] [address] [place] [address] Performed By: #### 2 143-6, 3016-3, 3024-7 ####[facility] LABCLIA [id number] [facility] KISSIMMEESha [address] OF [facility] CNPNon 05-17-2025 CNPN Normal [facility] ANES POSTPROC EVALon 025 ANES POSTPROC EVAL HNO ID: [id number] Author: SHERRI BURNETT DO Service: Anesthesiology Author Type: Physician Type: Anesthesia Postprocedure Evaluation Filed: 05/16/2025 10:23 Note Text: POST ANESTHESIA EVALUATION NOTE : 1945 Procedure Summary Date: 05/16/25 Room / Location: [facility] Anesthesia Start: 813 Anesthesia Stop: 950 Procedure: ERCP Diagnosis: Cholangiocarcinoma (HCC) (Stent change) Scheduled Providers: Debra Woods MD Responsible Provider: Sherri Burnett DO Anesthesia Type: general ASA Status: 3 Anesthesia Type: general Airway Type: ETT Last Vitals Vitals Value Taken Time BP 174/93 05/16/25 1020 Temp 35.8 ?C (96.5 ?F) 05/16/25 0945 Pulse 65 05/16/25 1023 Resp 16 05/16/25 1023 SpO2 99 % 05/16/25 1023 Vitals shown include unfiled device data. Post Anesthesia Patient Status Patient Evaluation: PACU. PACU/ICU Patient Condition: stable. Anticipated Disposition: phase 2 then home. Neurological Status: sleepy but arousable. Pulmonary Status: breathing comfortably on supplemental oxygen Airway Control: returned to baseline unsupported. Cardiovascular Status: stable. Pain Management: clinically adequate Postoperative Hydration: acceptable. Intraoperative Events: no significant anesthesia events Post Operative Nausea/Vomiting Status: no significant post operative nausea or vomiting Recommendation: continue current plan of care. Anesthesia Observations No Documentation SIGNATURE: Sherri Burnett DO PATIENT NAME: Russell Vaughn DATE: May 16, 2025 TIME: 10:23 AM CSN: [id number] Normal [facility] ANES PRE-OPon 05-16-2025 ANES PRE-OP HNO ID: [id number] Author: SHERRI BURNETT DO Service: Anesthesiology Author Type: Physician Type: Anesthesia Preprocedure Evaluation Filed: 05/16/2025 10:20 Note Text: ANESTHESIOLOGY DAY OF SURGERY NOTE : 1945 Procedure Information Anesthesia Start Date/Time: 05/16/25 0814 Scheduled providers: Debra Woods MD Procedure: ERCP Location: [facility] Estimated body mass index is 25.79 kg/m? as calculated from the following: Height as of 02/26/25: 168 cm (5' 6.14). Weight as of 05/06/25: 72.8 kg (160 lb 8 oz). Most recent hematocrit and potassium results: Hematocrit 25.2 05/06/2025 Potassium 4.4 05/06/2025 Relevant Problems CARDIO (+) Essential hypertension ENDO (+) Hypothyroidism (+) Hypothyroidism, acquired GI (+) GERD (gastroesophageal reflux disease) (+) Gastroesophageal reflux disease I - PHYSICAL EVALUATION AIRWAY Patient intubated: No. Tracheostomy tube not present Mallampati: II. TM distance: >3 FB. Neck ROM: full ROM without neurological symptoms. Mouth opening: adequate. Short neck: no. Thick neck: no DENTAL Dental findings: teeth intact. Additional exam findings: no II - ANESTHESIA PLAN ASA Score: 3 Anesthetic Plan: general Airway type: ETT The patient is not a current smoker. NPO Status: adequate Beta Ben Monitoring Plan Monitoring plan: standard ASA. Post Procedure Analgesic Plan Postoperative analgesic plan: multimodal analgesia and parenteral or oral opioids. Informed Consent Anesthetic risks, benefits, alternatives, personnel and consent discussed: yes. Patient / Responsible Libertarian agrees to proceed: yes Patient / Surrogate agrees to blood products: blood products not planned Significant changes in the patient condition since the History and Physical, not otherwise documented in primary service progress note: no. Potential Anesthesia issues that may suggest increased risk of complications or contraindication to planned procedure: none. No vitals data found for the desired time range. Outpatient Medications as of 05/16/2025 Medication Sig levothyroxine (LEVOXYL) 125 mcg tablet Take 1 tablet by mouth once daily. Take on empty stomach. For thyroid. xmamdm-yvtfptie-zavvktd (ZENPEP) 40,000-126,000- 168,000 unit delayed release capsule Take 2 capsules by mouth three times a day with meals. (Patient not taking: Reported on 04/15/2025) Senna 8.6 mg tab Take 8.6 mg by mouth two times a day. (Patient not taking: Reported on 03/21/2025) Lactobacillus acidophilus (PROBIOTIC ORAL) Take 1 tablet by mouth as needed. prochlorperazine (COMPAZINE) 10 mg tablet Take 1 tablet by mouth every 6 hours as needed. hydrocortisone (PROCTOZONE-HC) 2.5 % rectal cream 1 application by RECTAL route as needed. (Patient not taking: Reported on 12/31/2024) Yrveqejmvrnqu-Zmjeymnq-Jgt ein (CENTRUM SILVER) Tab Take 1 tablet by mouth once daily. Facility-Administered Medications as of 05/16/2025 Medication Dose Route Frequency lactated ringers iv infusion 5-30 mL/hr INTRAVENOUS CONTINUOUS indomethacin 100 mg suppository (INDOCIN) 100 mg RECTAL As Directed I have interviewed and examined the patient. I have reviewed the medical record and/or the pre-anesthesia evaluation, pertinent labs, and test results. This contains updated information obtained within 48 hours of Surgery/Procedure. SIGNATURE: Sherri Burnett DO PATIENT NAME: Russell Vaughn DATE: May 16, 2025 TIME: 10:19 AM CSN: [id number] Normal [facility] ERCPon 05-16-[address] [facility] Gastrointestinal Endoscopy Patient Name: Russell Vaughn Procedure Date: 05/16/2025 7:26 AM Date of : 1945 Admit Type: Outpatient Room: [place] [address] Gender: Male Note Status: Finalized Attending MD: Debra Woods MD, [id number] Procedure: ERCP Indications: Stent change. Patient has history of attempted laparascopic cholecystectomy, but on entry the gallbladder could not be visualized, instead white plaque tissue surrounding gallbladder and involving the omentum was seen. 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 He had an ERCP and reportedly had a covered metal stent placed in the common bile duct. He has been on chemotherapy and managed by Dr. Dumont. He presents today for stent change. Providers: Debra Woods MD Patient Profile: Refer to note in patient chart for documentation of history and physical. Referring Physician: Onel Dumont (Referring MD), Sheyla Aguilera MD (Referring MD) Medicines: General Anesthesia Complications: No immediate complications. Procedure: Pre-Anesthesia Assessment: - Prior to the procedure, a History and Physical was performed, and patient medications and allergies were reviewed. The patient is competent. The risks and benefits of the procedure and the sedation options and risks were discussed with the patient. All questions were answered and informed consent was obtained. Patient identification and proposed procedure were verified by the physician, the nurse and the anesthesiologist in the pre-procedure area in the procedure room. Mental Status Examination: normal. Airway Examination: normal oropharyngeal airway and neck mobility. Respiratory Examination: clear to auscultation. CV Examination: normal. Prophylactic Antibiotics: The patient does not require prophylactic antibiotics. Prior Anticoagulants: The patient has taken no anticoagulant or antiplatelet agents. ASA Grade Assessment: III - A patient with severe systemic disease. After reviewing the risks and benefits, the patient was deemed in satisfactory condition to undergo the procedure. The anesthesia plan was to use general anesthesia. Immediately prior to administration of medications, the patient was re-assessed for adequacy to receive sedatives. The heart rate, respiratory rate, oxygen saturations, blood pressure, adequacy of pulmonary ventilation, and response to care were monitored throughout the procedure. The physical status of the patient was re-assessed after the procedure. After obtaining informed consent, the scope was passed under direct vision. Throughout the procedure, the patient's blood pressure, pulse, and oxygen saturations were monitored continuously. The Duodenoscope was introduced through the mouth, and advanced to the duodenum and used to inject contrast into the bile duct. I was present and participated during the entire procedure, including non-pate portions, and during the administration and monitoring of Moderate Sedation. The ERCP was accomplished without difficulty. The patient tolerated the procedure well. Moderate Sedation: An independent trained observer was present and continuously monitored the patient. Exam was performed under general anesthesia (GA) Findings: A biliary stent was visible on the fish agent film. The esophagus was successfully intubated under direct vision. The scope was advanced to a normal major papilla in the descending duodenum without detailed examination of the pharynx, larynx and associated structures, and upper GI tract. The upper GI tract was grossly normal. One stent which had been placed through the major papilla into the biliary tree was no longer visible. It had migrated into the duct. The bile duct was deeply cannulated with the short-nosed traction sphincterotome. Contrast was injected. I personally interpreted the bile duct images. There was appropriate flow of contrast through the ducts. Image quality was adequate. Opacification of the main bile duct and hepatic duct bifurcation was successful. The biliary tree was swept with a 15 mm balloon starting at the bifurcation. Sludge was swept from the duct. Estimated Blood Loss: Estimated blood loss was minimal. Impression: - A previously placed stent had migrated into the distal biliary tree. This was difficulty to remove with flouroscopy guided rat-tooth and left in place. - Can consider referral to [facility] for stent removal vs monitor. Will discuss with referring providers - The stent was cleared with extraction of sludge - The biliary tree was swept and sludge was found. Recommendation: - Discharge patient to home (ambulatory). - Recommend monitoring hepatic function panel and if evidence of elevated liver enzymes would recommend ERCP with stent clearance vs placing additi (more content not included)... Normal [facility] ERCP Study observation Neeraj white 05-16-2025 [facility] Gastrointestinal Endoscopy Patient Name: Russell Vaughn Procedure Date: 05/16/2025 7:26 AM Date of : 1945 Admit Type: Outpatient Room: [place] [address] Gender: Male Note Status: Finalized Attending MD: Debra Woods MD, [id number] Procedure: ERCP Indications: Stent change. Patient has history of attempted laparascopic cholecystectomy, but on entry the gallbladder could not be visualized, instead white plaque tissue surrounding gallbladder and involving the omentum was seen. 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 He had an ERCP and reportedly had a covered metal stent placed in the common bile duct. He has been on chemotherapy and managed by Dr. Dumont. He presents today for stent change. Providers: Debra Woods MD Patient Profile: Refer to note in patient chart for documentation of history and physical. Referring Physician: Onel Dumont (Referring MD), Sheyla Aguilera MD (Referring MD) Medicines: General Anesthesia Complications: No immediate complications. Procedure: Pre-Anesthesia Assessment: - Prior to the procedure, a History and Physical was performed, and patient medications and allergies were reviewed. The patient is competent. The risks and benefits of the procedure and the sedation options and risks were discussed with the patient. All questions were answered and informed consent was obtained. Patient identification and proposed procedure were verified by the physician, the nurse and the anesthesiologist in the pre-procedure area in the procedure room. Mental Status Examination: normal. Airway Examination: normal oropharyngeal airway and neck mobility. Respiratory Examination: clear to auscultation. CV Examination: normal. Prophylactic Antibiotics: The patient does not require prophylactic antibiotics. Prior Anticoagulants: The patient has taken no anticoagulant or antiplatelet agents. ASA Grade Assessment: III - A patient with severe systemic disease. After reviewing the risks and benefits, the patient was deemed in satisfactory condition to undergo the procedure. The anesthesia plan was to use general anesthesia. Immediately prior to administration of medications, the patient was re-assessed for adequacy to receive sedatives. The heart rate, respiratory rate, oxygen saturations, blood pressure, adequacy of pulmonary ventilation, and response to care were monitored throughout the procedure. The physical status of the patient was re-assessed after the procedure. After obtaining informed consent, the scope was passed under direct vision. Throughout the procedure, the patient's blood pressure, pulse, and oxygen saturations were monitored continuously. The Duodenoscope was introduced through the mouth, and advanced to the duodenum and used to inject contrast into the bile duct. I was present and participated during the entire procedure, including non-pate portions, and during the administration and monitoring of Moderate Sedation. The ERCP was accomplished without difficulty. The patient tolerated the procedure well. Moderate Sedation: An independent trained observer was present and continuously monitored the patient. Exam was performed under general anesthesia (GA) Findings: A biliary stent was visible on the fish agent film. The esophagus was successfully intubated under direct vision. The scope w (more content not included)... PROVATION [facility] Radiology Study observation (narrative) [facility] HISTORY PHYSICALon HISTORY PHYSICAL HNO ID: [id number] Author: JANNA WALL APRN.LANDCARE OFFICER Service: ? Author Type: Nurse Practitioner Type: H&P Filed: 05/16/2025 07:56 Note Text: HISTORY AND PHYSICAL EXAMINATION SERVICE DATE: 05/16/2025 SERVICE TIME: 7:17 AM PRIMARY CARE PHYSICIAN: Efrain Peters DO REASON FOR VISIT: Russell Vaughn is a 79 year old male who is scheduled for ERCP at the request of Dr. Debra Woods for routine HANDP. The reason for this visit is to perform a comprehensive review of the patient's past medical history, assess their current health status and obtain any additional testing required based on anesthesia guidelines. We will also identify any potential anesthesia problems or contraindications to the planned procedure. 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 Here for ERCP and stent change. 04/01/25 MRI liver showed Locally advanced gallbladder neoplasm with contiguous invasion of the liver, hepatic flexure of the colon, and probably of the proximal duodenum. Patient is on chemotherapy 3 times a month, last received 2 weeks ago. Patient states it all happen when he had more acid reflux and was told that gallbladder may need out, however could not get scheduled soon enough due to post-pandemic limited schedules. He denies current N/V, diarrhea or constipation. Denies any abdominal pain. Denies any melena, hematochezia, or hematemesis. He states gets BM every 2 days due to not eating much. Patient agreed to planned procedure. METS: Walk a block or two on level ground (2.75 METs) Shortness of Breath with exertion due to chemo. Patient denies any CP/SOB with above activity. PAST MEDICAL HISTORY Diagnosis Date Adenocarcinoma (HCC) 12/25/2024 Gallbladder Diverticulosis of colon (without mention of hemorrhage) Erectile dysfunction GERD (gastroesophageal reflux disease) Internal hemorrhoids without mention of complication Nocturia Other and unspecified hyperlipidemia Prediabetes Unspecified essential hypertension Unspecified hypothyroidism PAST SURGICAL HISTORY Procedure Laterality Date COLONOSCOPY FLX DX W/COLLJ SPEC WHEN PFRMD 12/09/1999 FLEXIBLE SIGMOIDOSCOPY COLONOSCOPY FLX DX W/COLLJ SPEC WHEN PFRMD 10/02/2007 COLONOSCOPY SCREENING 12/18/2024 PAST SURGICAL HISTORY OF hydrocele repair PAST SURGICAL HISTORY OF 12/25/2024 Exploratory laparscopy with biopsies REPAIR INGUINAL HERNIA Right 10/22/2019 Dr. Annel Bradshaw, [facility] FAMILY HISTORY Problem Relation Age of Onset Emphysema Mother other (no siblings) Mother Diabetes Father SOCIAL HISTORY: Social History Tobacco Use Smoking status: Never Smokeless tobacco: Never Vaping Use Vaping status: Never Used Substance Use Topics Alcohol use: No Drug use: No Prior to Admission medications as of 05/16/25 0723 Medication Sig Last Dose Taking levothyroxine (LEVOXYL) 125 mcg tablet Take 1 tablet by mouth once daily. Take on empty stomach. For thyroid. 05/15/2025 Morning Yes tefvqs-txpvclvx-hqobtfc (ZENPEP) 40,000-126,000- 168,000 unit delayed release capsule Take 2 capsules by mouth three times a day with meals. Patient not taking: Reported on 04/15/2025 Senna 8.6 mg tab Take 8.6 mg by mouth two times a day. Patient not taking: Reported on 03/21/2025 Lactobacillus acidophilus (PROBIOTIC ORAL) Take 1 tablet by mouth as needed. Unknown prochlorperazine (COMPAZINE) 10 mg tablet Take 1 tablet by mouth every 6 hours as needed. hydrocortisone (PROCTOZONE-HC) 2.5 % rectal cream 1 application by RECTAL route as needed. Patient not taking: Reported on 12/31/2024 Hbwepacuxywya-Xjdghhum-Tvp ein (CENTRUM SILVER) Tab Take 1 tablet by mouth once daily. Unknown Medication Comments documented by Efrain Peters DO on 11/07/2020 at 0827. Magnesium supplement ALLERGIES No Known Allergies REVIEW OF SYSTEMS: PAIN ASSESSMENT: Pain Pain Level: 0 Pain Assessment: Assessment Tool: Verbal (Numeric Rating or Visual Analog Scale) General: Denies fever, chills, and unexpected weight change. Neuro: Denies dizziness and headaches. Respiratory: No history of current cough or dyspnea, or (more content not included)... Normal [facility] XR ERCP READ ONLYon 05-16-20 25 XR ERCP READ ONLY * * *Final Report* * * DATE OF EXAM: May 16 2025 10:03AM KANCH[facility] [id number] - XR ERCP READ ONLY / PROCEDURE REASON: E.R.C.P. * * * * Physician Interpretation * * * * EXAM TITLE: XR ERCP READ ONLY DATE: 05/23/2025 7:45 AM INDICATION: Carcinoma COMPARISON: None. FINDINGS: 1 minute 29 seconds of fluoroscopy time. 7 images. The first image demonstrates a flexible biliary stent in the region of the common bile duct. Subsequent images demonstrate an endoscope with cannulation of the biliary stent. IMPRESSION: Intraoperative exam. Ship'S Pilot: PSCB Transcribe Date/Time: May 23 2025 7:45A Dictated by : APSEN ORTIZ MD This examination was interpreted and the report reviewed and electronically signed by: ASPEN ORTIZ MD on May 23 2025 7:46AM EST [id number] Normal [facility] CBC W Auto Differential pane l (Bld)on 05-06-2025 Anisocytosis Ql (Bld) Present Normal [facility] Comment on above: Order Comment: Speci men Type: BLOOD SPECIMENOrdering Facility: [facility] Address: [address] [place] [address] Performed By: #### 5 7021-8 ####[facility] [id number] [address] LABORATORYCLIA [id number] [place] [address] [place] Basophils (Bld) [#/Vol] 0.00 10*3/uL Normal <0.11 [facility] Comment on above: Order Comment: Speci men Type: BLOOD SPECIMENOrdering Facility: [facility] Address: [address] [place] [address] Performed By: #### 5 7021-8 ####[facility] [id number] [address] LABORATORYCLIA [id number] [place] [address] [place] Basophils/100 WBC (Bld) 0.0 % Normal [facility] Comment on above: Order Comment: Speci men Type: BLOOD SPECIMENOrdering Facility: [facility] Address: [address] [place] [address] Performed By: #### 5 7021-8 ####[facility] MILLTOWNCLIA [id number] [address] LABORATORYCLIA [id number] [place] [address] [place] Dacrocytes LM Ql (Bld) Few Normal Cl [facility] Comment on above: Order Comment: Speci men Type: BLOOD SPECIMENOrdering Facility: [facility] Address: [address] [place] [address] Performed By: #### 5 7021-8 ####[facility] RIDGEWNCLIA [id number] [address] LABORATORYCLIA [id number] [address] [place] Differential cell count method Nom (Bld) Manual Normal [facility] Comment on above: Order Comment: Speci men Type: BLOOD SPECIMENOrdering Facility: [facility] Address: [address] [place] [address] Performed By: #### 5 7021-8 ####[facility] [id number] [address] LABORATORYCLIA [id number] [place] [address] [place] Eosinophils (Bld) [#/Vol] 0.28 10*3/uL Normal <0.46 [facility] Comment on above: Order Comment: Speci men Type: BLOOD SPECIMENOrdering Facility: [facility] Address: [address] [place] [address] Performed By: #### 5 7021-8 ####[facility] MILLTOWNCLIA [id number] [address] LABORATORYCLIA [id number] [place] [address] [place] Eosinophils/100 WBC (Bld) 2.0 % Normal [facility] Comment on above: Order Comment: Speci men Type: BLOOD SPECIMENOrdering Facility: [facility] Address: [address] [place] [address] Performed By: #### 5 7021-8 ####[facility] RIDGEWNCLIA [id number] [address] LABORATORYIA [id number] [place] [address] [place] Erythrocyte distribution width (RBC) [Ratio] 20.5 % High 11.5-15.0 [facility] Comment on above: Order Comment: Speci men Type: BLOOD SPECIMENOrdering Facility: [facility] Address: [address] [place] [address] Performed By: #### 5 7021-8 ####[facility]IDGEWNCLIA [id number] [address] LABORATORYCLIA [id number] [place] [address] [place] Hematocrit (Bld) [Volume fraction] 25.2 % Low 39.0-51.0 [facility] Comment on above: Order Comment: Speci men Type: BLOOD SPECIMENOrdering Facility: [facility] Address: [address] [place], [place] [address] Performed By: #### 5 7021-8 ####[facility] MILLWNCLIA [id number] [address] LABORATORYCLIA [id number] [place] [address] [place] Hemoglobin (Bld) [Mass/Vol] 8.1 g/dL Low 13.0-17.0 [facility] Comment on above: Order Comment: Speci men Type: BLOOD SPECIMENOrdering Facility: [facility] Address: [address] [place] [address] Performed By: #### 5 7021-8 ####[facility] MILLTOWSDLIA [id number] [address] LABORATORYCLIA [id number] [place] [address] [place] Lymphocytes (Bld) [#/Vol] 1.67 10*3/uL Normal 1.00-4.00 [facility] Comment on above: Order Comment: Speci men Type: BLOOD SPECIMENOrdering Facility: [facility] Address: [address] [place] [address] Performed By: #### 5 7021-8 ####[facility]IT[facility] [id number] [address] LABORATORYCLIA [id number] [address] OF [facility] Lymphocytes/100 WBC (Bld) 12.0 % Normal [facility] Comment on above: Order Comment: Speci men Type: BLOOD SPECIMENOrdering Facility: [facility] Address: [address] [place] [address] Performed By: #### 5 7021-8 ####[facility] [id number] [address] LABORATORYCLIA [id number] [place] [address] [place] MCH (RBC) [Entitic mass] 34.2 pg High 26.0-34.0 [facility] Comment on above: Order Comment: Speci men Type: BLOOD SPECIMENOrdering Facility: [facility] Address: [address] [place] [address] Performed By: #### 5 7021-8 ####[facility] LORENAHAIMLIA [id number] [address] LABORATORYCLIA [id number] [address] [place] MCHC (RBC) [Mass/Vol] 32.1 g/dL Normal 30.5-36.0 [facility] Comment on above: Order Comment: Speci men Type: BLOOD SPECIMENOrdering Facility: [facility] Address: [address] [place] [address] Performed By: #### 5 7021-8 ####[facility]VILLEHAIMLIA [id number] [address] LABORATORYCLIA [id number] [place] [address] [place] MCV (RBC) [Entitic vol] 106.3 fL High 80.0-100.0 [facility] Comment on above: Order Comment: Speci men Type: BLOOD SPECIMENOrdering Facility: [facility] Address: [address] [place] [address] Performed By: #### 5 7021-8 ####[facility] MICKIARELISSamanthaMAISHAA [id number] [address] LABORATORYCLIA [id number] [address] STATES [facility] Metamyelocytes/100 WBC (Bld) 1.0 % Normal [facility] Comment on above: Order Comment: Speci men Type: BLOOD SPECIMENOrdering Facility: [facility] Address: [address] [place] [address] Performed By: #### 5 7021-8 ####[facility]HAIMA [id number] [place] LABORATORYCLIA [id number] [place] [address] [place] Monocytes (Bld) [#/Vol] 1.67 10*3/uL High <0.87 [facility] Comment on above: Order Comment: Speci men Type: BLOOD SPECIMENOrdering Facility: [facility] Address: [address] [place] [address] Performed By: #### 5 7021-8 ####[facility] MILLTOWNCLIA [id number] [address] LABORATORYCLIA [id number] [place] [address] [place] Monocytes/100 WBC (Bld) 12.0 % Normal [facility] Comment on above: Order Comment: Speci men Type: BLOOD SPECIMENOrdering Facility: [facility] Address: [address] [place] [address] Performed By: #### 5 7021-8 ####[facility] MILLTOWNCLIA [id number] [address] LABORATORYCLIA [id number] [place] [address] [place] Neutrophils (Bld) [#/Vol] 10.15 10*3/uL High 1.45-7.50 [facility] Comment on above: Order Comment: Speci men Type: BLOOD SPECIMENOrdering Facility: [facility] Address: [address] [place] [address] Performed By: #### 5 7021-8 ####[facility] MILLTOWNCLIA [id number] [address] LABORATORYCLIA [id number] [place] [address] [place] Neutrophils/100 WBC (Bld) 73.0 % Normal [facility] Comment on above: Order Comment: Speci men Type: BLOOD SPECIMENOrdering Facility: [facility] Address: [address] [place] [address] Performed By: #### 5 7021-8 ####[facility] MICKITOWNCLIA [id number] [address] LABORATORYCLIA [id number] [place] [address] [place] Nucleated RBC (Bld) [#/Vol] 10*3/uL Normal <0.01 [facility] Comment on above: Order Comment: Speci men Type: BLOOD SPECIMENOrdering Facility: [facility] Address: [address] [place] [address] Performed By: #### 5 7021-8 ####[facility] PINE RIDGEWSDLIA [id number] [address] LABORATORYCLIA [id number] [place] [address] [place] Nucleated RBC/100 WBC (Bld) [Ratio] 0.0 /100 WBC Normal [facility] Comment on above: Order Comment: Speci men Type: BLOOD SPECIMENOrdering Facility: [facility] Address: [address] [place] [address] Performed By: #### 5 7021-8 ####[facility]VILLENCLIA [id number] [address] LABORATORYCLIA [id number] [place] [address] [place] Ovalocytes LM Ql (Bld) Few Normal [facility] Comment on above: Order Comment: Speci men Type: BLOOD SPECIMENOrdering Facility: [facility] Address: [address] [place] [address] Performed By: #### 5 7021-8 ####[facility] PINE RIDGEWNCLIA [id number] [address] LABORATORYCLIA [id number] [place] [address] [place] Platelet mean volume (Bld) [Entitic vol] 10.1 fL Normal 9.0-12.7 [facility] Comment on above: Order Comment: Speci men Type: BLOOD SPECIMENOrdering Facility: [facility] Address: [address] [place] [address] Performed By: #### 5 7021-8 ####[facility] MILLTOWNCLIA [id number] [address] LABORATORYCLIA [id number] [place] [address] [place] Platelets (Bld) [#/Vol] 198 10*3/uL Normal 150-400 [facility] Comment on above: Order Comment: Speci men Type: BLOOD SPECIMENOrdering Facility: [facility] Address: [address] [place] [address] Performed By: #### 5 7021-8 ####[facility] MILLWNCLIA [id number] [address] LABORATORYCLIA [id number] [place] [address] [place] Platelets Estimate (Bld) [#/Vol] Adequate Normal [facility] Comment on above: Order Comment: Speci men Type: BLOOD SPECIMENOrdering Facility: [facility] Address: [address] [place] [address] Performed By: #### 5 7021-8 ####[facility] MILLTOWNCLIA [id number] [address] LABORATORYCLIA [id number] [place] [address] [place] Polychromasia LM Ql (Bld) Slight Normal [facility] Comment on above: Order Comment: Speci men Type: BLOOD SPECIMENOrdering Facility: [facility] Address: [address] [place] [address] Performed By: #### 5 7021-8 ####[facility] MICKIWNCLIA [id number] [address] LABORATORYCLIA [id number] [place] [address] [place] RBC (Bld) [#/Vol] 2.37 10*6/uL Low 4.20-6.00 [facility] Comment on above: Order Comment: Speci men Type: BLOOD SPECIMENOrdering Facility: [facility] Address: [address] [place] [address] Performed By: #### 5 7021-8 ####[facility]CA [id number] [address] LABORATORYCLIA [id number] [place] [address] [place] RED CELL MORPH Reviewed: see result s of individual morphologies Normal [facility] Comment on above: Order Comment: Speci men Type: BLOOD SPECIMENOrdering Facility: [facility] Address: [address] [place] [address] Performed By: #### 5 7021-8 ####[facility]WAYA [id number] [address] LABORATORYCLIA [id number] [place] [address] [place] WBC (Bld) [#/Vol] 13.91 10*3/uL High 3.70-11.00 [facility] Comment on above: Order Comment: Speci men Type: BLOOD SPECIMENOrdering Facility: [facility] Address: [address] [place] [address] Performed By: #### 5 7021-8 ####[facility] P[facility] RIDGEWNCLIA [id number] [address] LABORATORYCLIA [id number] [address] WBC Left Shift Ql (Bld) Present Normal [facility] Comment on above: Order Comment: Speci men Type: BLOOD SPECIMENOrdering Facility: [facility] Address: [address] [place] [address] Performed By: #### 5 7021-8 ####[facility] [id number] [address] LABORATORYCLIA [id number] [place] [address] [place] CNOVSPon 05-06-2025 CNOVSP Normal [facility] metabolic 2000 panelon 05-06-2025 Albumin [Mass/Vol] 3.8 g/dL Low 3.9-4.9 [facility] Comment on above: Order Comment: Speci men Type: BLOOD SPECIMENOrdering Facility: [facility] Address: [address] [place] [address] Performed By: #### 2 4323-8 ####[facility] [id number] [place] [address] [place] ALP [Catalytic activity/Vol] 256 U/L High 38-113 [facility] Comment on above: Order Comment: Speci men Type: BLOOD SPECIMENOrdering Facility: [facility] Address: [address] [place] [address] Performed By: #### 2 4323-8 ####[facility] [id number] [place] [address] [place] ALT [Catalytic activity/Vol] 23 U/L Normal 10-54 [facility] Comment on above: Order Comment: Speci men Type: BLOOD SPECIMENOrdering Facility: [facility] Address: [address] [place] [address] Performed By: #### 2 4323-8 ####[facility] MYA MILLTOWNCLIA [id number] [place] [address] [place] Anion gap [Moles/Vol] 14 mmol/L Normal 8-15 [facility] Comment on above: Order Comment: Speci men Type: BLOOD SPECIMENOrdering Facility: [facility] Address: [address] [place] [address] Performed By: #### 2 4323-8 ####[facility] MILLTOWNCLIA [id number] [place] [address] [place] AST [Catalytic activity/Vol] 39 U/L Normal 14-40 [facility] Comment on above: Order Comment: Speci men Type: BLOOD SPECIMENOrdering Facility: [facility] Address: [address] [place] [address] Performed By: #### 2 4323-8 ####[facility] MILLWNCLIA [id number] [place] [address] [place] Bilirubin [Mass/Vol] 0.2 mg/dL Normal 0.2-1.3 [facility] Comment on above: Order Comment: Speci men Type: BLOOD SPECIMENOrdering Facility: [facility] Address: [address] [place] [address] Performed By: #### 2 4323-8 ####[facility] MILLTOWNCLIA [id number] [place] [address] [place] Calcium [Mass/Vol] 8.8 mg/dL Normal 8.5-10.2 [facility] Comment on above: Order Comment: Speci men Type: BLOOD SPECIMENOrdering Facility: [facility] Address: [address] [place] [address] Performed By: #### 2 4323-8 ####[facility] MILLTOWNCLIA [id number] [place] [address] [place] Chloride [Moles/Vol] 102 mmol/L Normal 98-107 [facility] Comment on above: Order Comment: Speci men Type: BLOOD SPECIMENOrdering Facility: [facility] Address: [address] [place] [address] Performed By: #### 2 4323-8 ####[facility]ITALLI [id number] [place] [address] [place] CO2 [Moles/Vol] 22 mmol/L Normal 22-30 [facility] Comment on above: Order Comment: Speci men Type: BLOOD SPECIMENOrdering Facility: [facility] Address: [address] [place] [address] Performed By: #### 2 4323-8 ####[facility] [id number] [place] [address] [place] Creatinine [Mass/Vol] 0.82 mg/dL Normal 0.73-1.22 [facility] Comment on above: Order Comment: Speci men Type: BLOOD SPECIMENOrdering Facility: [facility] Address: [address] [place] [address] Performed By: #### 2 4323-8 ####[facility] [id number] [place] [address] [place] eGFRcr SerPlBld CKD-EPI 2020 90 mL/min/1.73m??? Normal >=60 [facility] Comment on above: Order Comment: Speci men Type: BLOOD SPECIMENOrdering Facility: [facility] Address: [address] [place] [address] Result Comment: Lulu mated Glomerular Filtration Rate (eGFR) is calculated using the 2020 CKD-EPI creatinine equation. This equation utilizes serum creatinine, sex, and age as parameters. The creatinine assay has traceable calibration to isotope dilution-mass spectrometry. Refer to KDIGO guidelines for clinical interpretation. In patients with unstable renal function, e.g. those with acute kidney injury, the eGFR may not accurately reflect actual GFR. Performed By: #### 2 4323-8 ####[facility]CA [id number] [place] [address] [place] Glucose [Mass/Vol] 102 mg/dL High 74-99 [facility] Comment on above: Order Comment: Maury gama Type: BLOOD SPECIMENOrdering Facility: [facility] Address: [address] [place] [address] Result Comment: The [place] Diabetes Association (ADA) provides guidance for cutoff values for fasting glucose and random glucose. The ADA defines fasting as no caloric intake for at least 8 hours. Fasting plasma glucose results between 100 to 125 mg/dL indicate increased risk for diabetes (prediabetes).Fasting plasma glucose results greater than or equal to 126 mg/dL meet the criteria for diagnosis of diabetes. In the absence of unequivocal hyperglycemia, results should be confirmed by repeat testing. In a patient with classic symptoms of hyperglycemia or hyperglycemic crisis, random plasma glucose results greater than or equal to 200 mg/dL meet the criteria for diagnosis of diabetes.Reference: Standards of Medical Care in Diabetes 2016, [place] [employer] Association. Diabetes Care. 2016.39(Suppl 1). Performed By: #### 2 4323-8 ####[facility]ILL[facility]CLIA [id number] [place] [address] [place] Potassium [Moles/Vol] 4.4 mmol/L Normal 3.7-5.1 [facility] Comment on above: Order Comment: Maury gama Type: BLOOD SPECIMENOrdering Facility: [facility] Address: [address] [place], [place] [address] Performed By: #### 2 4323-8 ####[facility] [id number] [place] [address] [place] Protein [Mass/Vol] 6.8 g/dL Normal 6.3-8.0 [facility] Comment on above: Order Comment: Maury gama Type: BLOOD SPECIMENOrdering Facility: [facility] Address: [address] [place], [place] [address] Performed By: #### 2 4323-8 ####[facility]CL[facility] [id number] [place] [address] [place] Sodium [Moles/Vol] 138 mmol/L Normal 136-144 [facility] Comment on above: Order Comment: Speci men Type: BLOOD SPECIMENOrdering Facility: [facility] Address: [address] [place] [address] Performed By: #### 2 4323-8 ####[facility] [id number] [place] [address] [place] Urea nitrogen [Mass/Vol] 24 mg/dL Normal 9-24 [facility] Comment on above: Order Comment: Speci men Type: BLOOD SPECIMENOrdering Facility: [facility] Address: [address] [place] [address] Performed By: #### 2 4323-8 ####[facility] [id number] [place] [address] [place] Cortis SerPl-mCncon 05-06-20 25 Cortisol [Mass/Vol] 11.1 ug/dL Normal 4.8-19.5 [facility] Comment on above: Order Comment: Speci men Type: BLOOD SPECIMENOrdering Facility: [facility] Address: [address] [place] [address] Result Comment: Prov ided reference range is from 6-10 AM sample collection time.Cortisol Reference Range: 6-10 AM = 4.8-19.5 ug/dL, 4-8 PM = 2.5-11.9 ug/dL Performed By: #### 3 024-7, 3016-3, 2143-6 ####[facility] LABCLIA [id number] [place] [address] [place] T4 Free SerPl-mCncon 025 Free T4 [Mass/Vol] 1.4 ng/dL Normal 0.9-1.7 [facility] Comment on above: Order Comment: Speci men Type: BLOOD SPECIMENOrdering Facility: [facility] Address: [address] [place] [address] Performed By: #### 3 024-7, 3016-3, 3-6 ####[facility] LABCLIA [id number] [address] [place] TSH SerPl-aCncon 05-06-2025 TSH Qn 1.500 m[IU]/L Normal 0.270-4.200 [facility] Comment on above: Order Comment: Speci men Type: BLOOD SPECIMENOrdering Facility: [facility] Address: [address] [place] [address] Performed By: #### 3 024-7, 3016-3, 3-6 ####[facility] LABCLIA [id number] [address] [place] US LEG VEIN DVT LUPE VAS LABo n 05-06-2025 LEG VEIN DVT [facility] LAB Normal [facility] Lower extremity veins - b ilateralon 05-06-2025 Non-Invasive Vascular Laboratory [facility] Lower Extremity Venous Duplex Bilateral/Complete Date of service/time: 05/06/2025 11:08:13 AM Name: RUSSELL VAUGHN Date of : 1945 Age: 79 years Gender: M Clinical Indication Bilateral leg swelling. TECHNIQUE -------- A venous duplex ultrasound examination was performed, including grayscale imaging with compression maneuvers and color Doppler and spectral Doppler examination with augmentation maneuvers and response to respiration of the below mentioned veins. FINDINGS -------- RIGHT SIDE Distal external iliac vein Doppler: normal flow. Compression: normal. Common femoral vein Doppler: normal flow. Compression: normal. Femoral vein Doppler: normal flow. Compression: normal. Popliteal vein Doppler: normal flow. Compression: normal. Posterior tibial veins Compression: normal. Peroneal veins Compression: normal. Great saphenous vein Compression: normal. Small saphenous vein Compression: normal. LEFT SIDE Distal external iliac vein Doppler: normal flow. Compression: normal. Common femoral vein Doppler: normal flow. Compression: normal. Femoral vein Doppler: normal flow. Compression: normal. Popliteal vein Doppler: normal flow. Compression: normal. Posterior tibial veins Compression: normal. Peroneal veins Compression: normal. Great saphenous vein Compression: normal. Small saphenous vein Compression: normal. IMPRESSION RIGHT SIDE - DEEP VEINS Negative for acute deep vein thrombosis. RIGHT SIDE - SUPERFICIAL VEINS Negative for superficial thrombophlebitis in the great saphenous vein and small saphenous vein. LEFT SIDE - DEEP VEINS Negative for acute deep vein thrombosis. LEFT SIDE - SUPERFICIAL VEINS Negative for superficial thrombophlebitis in the great saphenous vein and small saphenous vein. Technologist: Marian Castillo RVT Ordering physician: ONEL DUMONT Interpreting physician: Bharat Gambino MD, MAT Final See Link below for Image [facility] CNPNon 04-24-2025 CNPN Normal [facility] BRCon 04-23-2025 Normal [facility] Comment on above: Result Comment: [id number] OP RC TRANSFUSED 04/24/25 1138 Performed By: #### B , BTS ####[facility] [address] [place], [address] CBC W Auto Differential pane l (Bld)on 04-23-2025 Basophils (Bld) [#/Vol] 0.03 10*3/uL Normal <0.11 [facility] Comment on above: Order Comment: Speci men Type: BLOOD SPECIMENOrdering Facility: [facility] Address: [address] [place] [address] Performed By: #### 5 7021-8 ####[facility] [id number] [place] [address] [place] Basophils/100 WBC (Bld) 0.8 % Normal [facility] Comment on above: Order Comment: Speci men Type: BLOOD SPECIMENOrdering Facility: [facility] Address: [address] [place] [address] Performed By: #### 5 7021-8 ####[facility]HAIMLIA [id number] [place] [address] [place] Differential cell count method Nom (Bld) Auto Normal [facility] Comment on above: Order Comment: Speci men Type: BLOOD SPECIMENOrdering Facility: [facility] Address: [address] [place] [address] Performed By: #### 5 7021-8 ####[facility]HAIMLIA [id number] [place] [address] [place] Eosinophils (Bld) [#/Vol] 10*3/uL Normal <0.46 [facility] Comment on above: Order Comment: Speci men Type: BLOOD SPECIMENOrdering Facility: [facility] Address: [address] [place] [address] Performed By: #### 5 7021-8 ####[facility] [id number] [place] [address] [place] Eosinophils/100 WBC (Bld) 0.6 % Normal [facility] Comment on above: Order Comment: Speci men Type: BLOOD SPECIMENOrdering Facility: [facility] Address: [address] [place] [address] Performed By: #### 5 7021-8 ####[facility] [id number] [place] [address] [place] Erythrocyte distribution width (RBC) [Ratio] 18.4 % High 11.5-15.0 [facility] Comment on above: Order Comment: Speci men Type: BLOOD SPECIMENOrdering Facility: [facility] Address: [address] [place] [address] Performed By: #### 5 7021-8 ####[facility] [id number] [place] [address] [place] Hematocrit (Bld) [Volume fraction] 22.6 % Low 39.0-51.0 [facility] Comment on above: Order Comment: Speci men Type: BLOOD SPECIMENOrdering Facility: [facility] Address: [address] [place] [address] Performed By: #### 5 7021-8 ####[facility] [id number] [place] [address] [place] Hemoglobin (Bld) [Mass/Vol] 7.5 g/dL Low 13.0-17.0 [facility] Comment on above: Order Comment: Speci men Type: BLOOD SPECIMENOrdering Facility: [facility] Address: [address] [place] [address] Performed By: #### 5 7021-8 ####[facility] [id number] [place] [address] [place] Immature granulocytes (Bld) [#/Vol] 0.03 10*3/uL Normal <0.10 [facility] Comment on above: Order Comment: Speci men Type: BLOOD SPECIMENOrdering Facility: [facility] Address: [address] [place] [address] Performed By: #### 5 7021-8 ####[facility] [id number] [place] [address] [place] Immature granulocytes/100 WBC (Bld) 0.8 % Normal [facility] Comment on above: Order Comment: Speci men Type: BLOOD SPECIMENOrdering Facility: [facility] Address: [address] [place] [address] Performed By: #### 5 7021-8 ####[facility] [id number] [place] [address] [place] Lymphocytes (Bld) [#/Vol] 0.62 10*3/uL Low 1.00-4.00 [facility] Comment on above: Order Comment: Speci men Type: BLOOD SPECIMENOrdering Facility: [facility] Address: [address] [place] [address] Performed By: #### 5 7021-8 ####[facility] [id number] [place] [address] [place] Lymphocytes/100 WBC (Bld) 17.4 % Normal [facility] Comment on above: Order Comment: Speci men Type: BLOOD SPECIMENOrdering Facility: [facility] Address: [address] [place] [address] Performed By: #### 5 7021-8 ####[facility] [id number] [place] [address] [place] MCH (RBC) [Entitic mass] 34.1 pg High 26.0-34.0 [facility] Comment on above: Order Comment: Speci men Type: BLOOD SPECIMENOrdering Facility: [facility] Address: [address] [place] [address] Performed By: #### 5 7021-8 ####[facility] [id number] [place] [address] [place] MCHC (RBC) [Mass/Vol] 33.2 g/dL Normal 30.5-36.0 [facility] Comment on above: Order Comment: Speci men Type: BLOOD SPECIMENOrdering Facility: [facility] Address: [address] [place] [address] Performed By: #### 5 7021-8 ####[facility] [id number] [place] [address] [place] MCV (RBC) [Entitic vol] 102.7 fL High 80.0-100.0 [facility] Comment on above: Order Comment: Speci men Type: BLOOD SPECIMENOrdering Facility: [facility] Address: [address] [place] [address] Performed By: #### 5 7021-8 ####[facility] [id number] [place] [address] [place] Monocytes (Bld) [#/Vol] 0.55 10*3/uL Normal <0.87 [facility] Comment on above: Order Comment: Speci men Type: BLOOD SPECIMENOrdering Facility: [facility] Address: [address] [place] [address] Performed By: #### 5 7021-8 ####[facility] [id number] [place] [address] [place] Monocytes/100 WBC (Bld) 15.4 % Normal [facility] Comment on above: Order Comment: Speci men Type: BLOOD SPECIMENOrdering Facility: [facility] Address: [address] [place] [address] Performed By: #### 5 7021-8 ####[facility] [id number] [place] [address] [place] Neutrophils (Bld) [#/Vol] 2.32 10*3/uL Normal 1.45-7.50 [facility] Comment on above: Order Comment: Speci men Type: BLOOD SPECIMENOrdering Facility: [facility] Address: [address] [place] [address] Performed By: #### 5 7021-8 ####[facility] [id number] [place] [address] [place] Neutrophils/100 WBC (Bld) 65.0 % Normal [facility] Comment on above: Order Comment: Speci men Type: BLOOD SPECIMENOrdering Facility: [facility] Address: [address] [place] [address] Performed By: #### 5 7021-8 ####[facility] [id number] [place] [address] [place] Nucleated RBC (Bld) [#/Vol] 10*3/uL Normal <0.01 [facility] Comment on above: Order Comment: Speci men Type: BLOOD SPECIMENOrdering Facility: [facility] Address: [address] [place] [address] Performed By: #### 5 7021-8 ####[facility] [id number] [place] [address] [place] Nucleated RBC/100 WBC (Bld) [Ratio] 0.0 /100 WBC Normal [facility] Comment on above: Order Comment: Speci men Type: BLOOD SPECIMENOrdering Facility: [facility] Address: [address] [place] [address] Performed By: #### 5 7021-8 ####[facility] [id number] [place] [address] [place] Platelet mean volume (Bld) [Entitic vol] 9.1 fL Normal 9.0-12.7 [facility] Comment on above: Order Comment: Speci men Type: BLOOD SPECIMENOrdering Facility: [facility] Address: [address] [place] [address] Performed By: #### 5 7021-8 ####[facility] [id number] [place] [address] [place] Platelets (Bld) [#/Vol] 217 10*3/uL Normal 150-400 [facility] Comment on above: Order Comment: Speci men Type: BLOOD SPECIMENOrdering Facility: [facility] Address: [address] [place] [address] Performed By: #### 5 7021-8 ####[facility] [id number] [place] [address] [place] RBC (Bld) [#/Vol] 2.20 10*6/uL Low 4.20-6.00 [facility] Comment on above: Order Comment: Speci men Type: BLOOD SPECIMENOrdering Facility: [facility] Address: [address] [place] [address] Performed By: #### 5 7021-8 ####[facility]ITAL[facility]THI[facility] [id number] [place] [address] [place] WBC (Bld) [#/Vol] 3.57 10*3/uL Low 3.70-11.00 [facility] Comment on above: Order Comment: Speci men Type: BLOOD SPECIMENOrdering Facility: [facility] Address: [address] [place] [address] Performed By: #### 5 7021-8 ####[facility] [id number] [place] [address] [place] CNPNon 04-23-2025 CNPN Normal [facility] Comprehensive metabolic 2000 panelOrdered By: Adia Galan on 04-23-2025 Albumin [Mass/Vol] 3.4 g/dL Low 3.9 - 4.9 g/dL [facility] ALP [Catalytic activity/Vol] 202 U/L High 38 - 113 U/L [facility] ALT [Catalytic activity/Vol] 26 U/L 10 - 54 U/[facility] Anion gap [Moles/Vol] 10 mmol/L 8 - 15 mmol/L [facility] AST [Catalytic activity/Vol] 43 U/L High 14 - 40 U/L [facility] Bilirubin [Mass/Vol] 0.3 mg/dL 0.2 - 1 .3 mg/dL [facility] Calcium [Mass/Vol] 9 mg/dL 8.5 - 10. 2 mg/dL [facility] Chloride [Moles/Vol] 101 mmol/L 98 - 10 7 mmol/L [facility] CO2 [Moles/Vol] 27 mmol/L 22 - 30 mmol/L [facility] Creatinine [Mass/Vol] 0.75 mg/dL 0.73 - 1.22 mg/dL [facility] GFR/1.73 sq M.predicted among non-blacks MDRD (S/P/Bld) [Vol rate/Area] 93 mL/min/{1.73_m2} - PINF [facility] Comment on above: Estimated Glomerular Filtration Rate (eGFR) is calculated using the 2020 CKD-EPI creatinine equation. This equation utilizes serum creatinine, sex, and age as parameters. The creatinine assay has traceable calibration to isotope dilution-mass spectrometry. Refer to KDIGO guidelines for clinical interpretation. In patients with unstable renal function, e.g. those with acute kidney injury, the eGFR may not accurately reflect actual GFR. Glucose [Mass/Vol] 148 mg/dL High 74 - 99 mg/dL [facility] Comment on above: The [place] Diab[employer] Association (ADA) provides guidance for cutoff values for fasting glucose and random glucose. The ADA defines fasting as no caloric intake for at least 8 hours. Fasting plasma glucose results between 100 to 125 mg/dL indicate increased risk for diabetes (prediabetes). Fasting plasma glucose results greater than or equal to 126 mg/dL meet the criteria for diagnosis of diabetes. In the absence of unequivocal hyperglycemia, results should be confirmed by repeat testing. In a patient with classic symptoms of hyperglycemia or hyperglycemic crisis, random plasma glucose results greater than or equal to 200 mg/dL meet the criteria for diagnosis of diabetes. Reference: Standards of Medical Care in Diabetes 2016, [place] [employer] Association. Diabetes Care. 2016.39(Suppl 1). Interpretation and review of laboratory results Abnormal [facility] Potassium [Moles/Vol] 4.1 mmol/L 3.7 - 5.1 mmol/L [facility] Protein [Mass/Vol] 6 g/dL Low 6.3 - 8.0 g/dL [facility] Sodium [Moles/Vol] 138 mmol/L 136 - 144 mmol/L [facility] Urea nitrogen [Mass/Vol] 29 mg/dL High 9 - 24 mg/dL [facility] Comprehensive metabolic 2000 panelon 04-23-2025 Albumin [Mass/Vol] 3.4 g/dL Low 3.9-4.9 [facility] Comment on above: Order Comment: Speci men Type: BLOOD SPECIMENOrdering Facility: [facility] Address: [address] [place] [address] Performed By: #### 2 4323-8 ####[facility] MILLTOWNCLIA [id number] [place] [address] [place] ALP [Catalytic activity/Vol] 202 U/L High 38-113 [facility] Comment on above: Order Comment: Speci men Type: BLOOD SPECIMENOrdering Facility: [facility] Address: [address] [place] [address] Performed By: #### 2 4323-8 ####[facility]GEWNCLIA [id number] [place] [address] [place] ALT [Catalytic activity/Vol] 26 U/L Normal 10-54 [facility] Comment on above: Order Comment: Speci men Type: BLOOD SPECIMENOrdering Facility: [facility] Address: [address] [place] [address] Performed By: #### 2 4323-8 ####[facility] [id number] [place] [address] [place] Anion gap [Moles/Vol] 10 mmol/L Normal 8-15 [facility] Comment on above: Order Comment: Speci men Type: BLOOD SPECIMENOrdering Facility: [facility] Address: [address] [place] [address] Performed By: #### 2 4323-8 ####[facility] RIDGEWNCLIA [id number] [place] [address] [place] AST [Catalytic activity/Vol] 43 U/L High 14-40 [facility] Comment on above: Order Comment: Speci men Type: BLOOD SPECIMENOrdering Facility: [facility] Address: [address] [place] [address] Performed By: #### 2 4323-8 ####[facility] [id number] [place] [address] [place] Bilirubin [Mass/Vol] 0.3 mg/dL Normal 0.2-1.3 [facility] Comment on above: Order Comment: Speci men Type: BLOOD SPECIMENOrdering Facility: [facility] Address: [address] [place] [address] Performed By: #### 2 4323-8 ####[facility] [id number] [place] [address] [place] Calcium [Mass/Vol] 9.0 mg/dL Normal 8.5-10.2 [facility] Comment on above: Order Comment: Speci men Type: BLOOD SPECIMENOrdering Facility: [facility] Address: [address] [place] [address] Performed By: #### 2 4323-8 ####[facility] [id number] [place] [address] [place] Chloride [Moles/Vol] 101 mmol/L Normal 98-107 [facility] Comment on above: Order Comment: Speci men Type: BLOOD SPECIMENOrdering Facility: [facility] Address: [address] [place] [address] Performed By: #### 2 4323-8 ####[facility] [id number] [place] [address] [place] CO2 [Moles/Vol] 27 mmol/L Normal 22-30 [facility] Comment on above: Order Comment: Speci men Type: BLOOD SPECIMENOrdering Facility: [facility] Address: [address] [place], [place] [address] Performed By: #### 2 4323-8 ####[facility] [id number] [place] [address] [place] Creatinine [Mass/Vol] 0.75 mg/dL Normal 0.73-1.22 [facility] Comment on above: Order Comment: Speci men Type: BLOOD SPECIMENOrdering Facility: [facility] Address: [address] [place] [address] Performed By: #### 2 4323-8 ####[facility] [id number] [place] [address] [place] Creatinine and Glomerular filtration rate.predicted panel (S/P/Bld) 93 mL/min/1.73m??? Normal >=60 [facility] Comment on above: Order Comment: Maury gama Type: BLOOD SPECIMENOrdering Facility: [facility] Address: [address] [place] [address] Result Comment: Lulu mated Glomerular Filtration Rate (eGFR) is calculated using the 2020 CKD-EPI creatinine equation. This equation utilizes serum creatinine, sex, and age as parameters. The creatinine assay has traceable calibration to isotope dilution-mass spectrometry. Refer to KDIGO guidelines for clinical interpretation. In patients with unstable renal function, e.g. those with acute kidney injury, the eGFR may not accurately reflect actual GFR. Performed By: #### 2 4323-8 ####[facility] [id number] [place] [address] [place] Glucose [Mass/Vol] 148 mg/dL High 74-99 [facility] Comment on above: Order Comment: Maury gama Type: BLOOD SPECIMENOrdering Facility: [facility] Address: [address] [place] [address] Result Comment: The [place] Diabetes Association (ADA) provides guidance for cutoff values for fasting glucose and random glucose. The ADA defines fasting as no caloric intake for at least 8 hours. Fasting plasma glucose results between 100 to 125 mg/dL indicate increased risk for diabetes (prediabetes).Fasting plasma glucose results greater than or equal to 126 mg/dL meet the criteria for diagnosis of diabetes. In the absence of unequivocal hyperglycemia, results should be confirmed by repeat testing. In a patient with classic symptoms of hyperglycemia or hyperglycemic crisis, random plasma glucose results greater than or equal to 200 mg/dL meet the criteria for diagnosis of diabetes.Reference: Standards of Medical Care in Diabetes 2016, [place] [employer]. Diabetes Care. 2016.39(Suppl 1). Performed By: #### 2 4323-8 ####[facility] MILLTOWNCLIA [id number] [place] [address] [place] Potassium [Moles/Vol] 4.1 mmol/L Normal 3.7-5.1 [facility] Comment on above: Order Comment: Speci men Type: BLOOD SPECIMENOrdering Facility: [facility] Address: [address] [place] [address] Performed By: #### 2 4323-8 ####[facility] MILLTOWNCLIA [id number] [place] [address] [place] Protein [Mass/Vol] 6.0 g/dL Low 6.3-8.0 [facility] Comment on above: Order Comment: Speci men Type: BLOOD SPECIMENOrdering Facility: [facility] Address: [address] [place] [address] Performed By: #### 2 4323-8 ####[facility] [id number] [place] [address] [place] Sodium [Moles/Vol] 138 mmol/L Normal 136-144 [facility] Comment on above: Order Comment: Speci men Type: BLOOD SPECIMENOrdering Facility: [facility] Address: [address] [place] [address] Performed By: #### 2 4323-8 ####[facility] MILLWNCLIA [id number] [place] [address] [place] Urea nitrogen [Mass/Vol] 29 mg/dL High 9-24 [facility] Comment on above: Order Comment: Speci men Type: BLOOD SPECIMENOrdering Facility: [facility] Address: [address] [place] [address] Performed By: #### 2 4323-8 ####[facility] MILLWNCLIA [id number] [place] [address] [place] Type AND Screenon 04-23-2025 Ab SCREEN GEL Negative Normal [facility] Comment on above: Order Comment: PRETR ANSFUSION HGB = 7.5 HCT = 22.6 PERFORMED AT [id number] Performed By: #### B LEANDRO, BTS ####[facility] [id number] [place], [address] CNPNon 04-17-2025 CNPN Normal [facility] CBC W Auto Differential pane l (Bld)on 04-15-2025 Anisocytosis Ql (Bld) Present Normal [facility] Comment on above: Order Comment: Speci men Type: BLOOD SPECIMENOrdering Facility: [facility] Address: [address] [place] [address] Performed By: #### 5 7021-8 ####[facility] LABCLIA [id number] [place] [address] [place] Basophils (Bld) [#/Vol] 0.14 10*3/uL High <0.11 [facility] Comment on above: Order Comment: Speci men Type: BLOOD SPECIMENOrdering Facility: [facility] Address: [address] [place] [address] Performed By: #### 5 7021-8 ####[facility] LABCLIA [id number] [place] [address] [place] Basophils/100 WBC (Bld) 1.0 % Normal [facility] Comment on above: Order Comment: Speci men Type: BLOOD SPECIMENOrdering Facility: [facility] Address: [address] [place] [address] Performed By: #### 5 7021-8 ####[facility] LABCLIA [id number] [place] [address] [place] Differential cell count method Nom (Bld) Manual Normal [facility] Comment on above: Order Comment: Speci men Type: BLOOD SPECIMENOrdering Facility: [facility] Address: [address] [place] [address] Performed By: #### 5 7021-8 ####[facility] LABCLIA [id number] [place] [address] [place] Eosinophils (Bld) [#/Vol] 0.29 10*3/uL Normal <0.46 [facility] Comment on above: Order Comment: Speci men Type: BLOOD SPECIMENOrdering Facility: [facility] Address: [address] [place] [address] Performed By: #### 5 7021-8 ####[facility] LABCLIA [id number] [place] [address] [place] Eosinophils/100 WBC (Bld) 2.0 % Normal [facility] Comment on above: Order Comment: Speci men Type: BLOOD SPECIMENOrdering Facility: [facility] Address: [address] [place] [address] Performed By: #### 5 7021-8 ####[facility] LABCLIA [id number] [address], [place] [address] [place] Erythrocyte distribution width (RBC) [Ratio] 19.6 % High 11.5-15.0 [facility] Comment on above: Order Comment: Speci men Type: BLOOD SPECIMENOrdering Facility: [facility] Address: [address] [place] [address] Performed By: #### 5 7021-8 ####[facility] LABCLIA [id number] [place] [address] [place] Hematocrit (Bld) [Volume fraction] 24.1 % Low 39.0-51.0 [facility] Comment on above: Order Comment: Speci men Type: BLOOD SPECIMENOrdering Facility: [facility] Address: [address] [place] [address] Performed By: #### 5 7021-8 ####[facility] LABCLIA [id number] [address] [address] [place] Hemoglobin (Bld) [Mass/Vol] 7.8 g/dL Low 13.0-17.0 [facility] Comment on above: Order Comment: Speci men Type: BLOOD SPECIMENOrdering Facility: [facility] Address: [address] [place] [address] Performed By: #### 5 7021-8 ####[facility] LABCLIA [id number] [place] [address] [place] Lymphocytes (Bld) [#/Vol] 1.14 10*3/uL Normal 1.00-4.00 [facility] Comment on above: Order Comment: Speci men Type: BLOOD SPECIMENOrdering Facility: [facility] Address: [address] [place] [address] Performed By: #### 5 7021-8 ####[facility] LABCLIA [id number] [place] [address] [place] Lymphocytes/100 WBC (Bld) 8.0 % Normal [facility] Comment on above: Order Comment: Speci men Type: BLOOD SPECIMENOrdering Facility: [facility] Address: [address] [place] [address] Performed By: #### 5 7021-8 ####[facility] LABCLIA [id number] [place] [address] [place] MCH (RBC) [Entitic mass] 33.9 pg Normal 26.0-34.0 [facility] Comment on above: Order Comment: Speci men Type: BLOOD SPECIMENOrdering Facility: [facility] Address: [address] [place] [address] Performed By: #### 5 7021-8 ####[facility] LABCLIA [id number] [place] [address] [place] MCHC (RBC) [Mass/Vol] 32.4 g/dL Normal 30.5-36.0 [facility] Comment on above: Order Comment: Speci men Type: BLOOD SPECIMENOrdering Facility: [facility] Address: [address] [place] [address] Performed By: #### 5 7021-8 ####[facility] LABCLIA [id number] [address], [place] [address] [place] MCV (RBC) [Entitic vol] 104.8 fL High 80.0-100.0 [facility] Comment on above: Order Comment: Speci men Type: BLOOD SPECIMENOrdering Facility: [facility] Address: [address] [place] [address] Performed By: #### 5 7021-8 ####[facility] LABCLIA [id number] [address], [place] [address] [place] Metamyelocytes/100 WBC (Bld) 1.0 % Normal [facility] Comment on above: Order Comment: Speci men Type: BLOOD SPECIMENOrdering Facility: [facility] Address: [address] [place] [address] Performed By: #### 5 7021-8 ####[facility] LABCLIA [id number] [address], [place] [address] [place] Monocytes (Bld) [#/Vol] 0.86 10*3/uL Normal <0.87 [facility] Comment on above: Order Comment: Speci men Type: BLOOD SPECIMENOrdering Facility: [facility] Address: [address] [place] [address] Performed By: #### 5 7021-8 ####[facility] LABCLIA [id number] [facility] [address], [facility] [place] Monocytes/100 WBC (Bld) 6.0 % Normal [facility] Comment on above: Order Comment: Speci men Type: BLOOD SPECIMENOrdering Facility: [facility] Address: [address] [place] [address] Performed By: #### 5 7021-8 ####[facility] LABCLIA [id number] [address], [facility]95 [place] MYELO% 4.0 % Normal [facility] Comment on above: Order Comment: Speci men Type: BLOOD SPECIMENOrdering Facility: [facility] Address: [address] [place] [address] Performed By: #### 5 7021-8 ####[facility] LABCLIA [id number] [place] [address] [place] Neutrophils (Bld) [#/Vol] 11.15 10*3/uL High 1.45-7.50 [facility] Comment on above: Order Comment: Speci men Type: BLOOD SPECIMENOrdering Facility: [facility] Address: [address] [place] [address] Performed By: #### 5 7021-8 ####[facility] LABCLIA [id number] [place] [address] [place] Neutrophils/100 WBC (Bld) 78.0 % Normal [facility] Comment on above: Order Comment: Speci men Type: BLOOD SPECIMENOrdering Facility: [facility] Address: [address] [place] [address] Performed By: #### 5 7021-8 ####[facility] LABCLIA [id number] [place] [address] [place] Nucleated RBC (Bld) [#/Vol] 10*3/uL Normal <0.01 [facility] Comment on above: Order Comment: Speci men Type: BLOOD SPECIMENOrdering Facility: [facility] Address: [address] [place] [address] Performed By: #### 5 7021-8 ####[facility] LABCLIA [id number] [place] [address] [place] Nucleated RBC/100 WBC (Bld) [Ratio] 0.0 /100 WBC Normal [facility] Comment on above: Order Comment: Speci men Type: BLOOD SPECIMENOrdering Facility: [facility] Address: [address] [place] [address] Performed By: #### 5 7021-8 ####[facility] LABCLIA [id number] [address] [place] [address] [place] Ovalocytes LM Ql (Bld) Few Normal Cl [facility] Comment on above: Order Comment: Speci men Type: BLOOD SPECIMENOrdering Facility: [facility] Address: [address] [place] [address] Performed By: #### 5 7021-8 ####[facility] LABIA [id number] [address] [place] [address] [place] Platelet mean volume (Bld) [Entitic vol] 10.1 fL Normal 9.0-12.7 [facility] Comment on above: Order Comment: Speci men Type: BLOOD SPECIMENOrdering Facility: [facility] Address: [address] [place] [address] Performed By: #### 5 7021-8 ####[facility] LABIA [id number] [address], [facility]95 [place] Platelets (Bld) [#/Vol] 236 10*3/uL Normal 150-400 [facility] Comment on above: Order Comment: Speci men Type: BLOOD SPECIMENOrdering Facility: [facility] Address: [address] [place] [address] Performed By: #### 5 7021-8 ####[facility] LABIA [id number] [address] [place] [address] [place] Platelets Estimate (Bld) [#/Vol] Adequate Normal [facility] Comment on above: Order Comment: Speci men Type: BLOOD SPECIMENOrdering Facility: [facility] Address: [address] [place] [address] Performed By: #### 5 7021-8 ####[facility] LABCLIA [id number] [facility] [address] [place] [address] [place] RBC (Bld) [#/Vol] 2.30 10*6/uL Low 4.20-6.00 [facility] Comment on above: Order Comment: Speci men Type: BLOOD SPECIMENOrdering Facility: [facility] Address: [address] [place] [address] Performed By: #### 5 7021-8 ####[facility] LABCLIA [id number] [place] [address] [place] RED CELL MORPH Reviewed: see result s of individual morphologies Normal [facility] Comment on above: Order Comment: Speci men Type: BLOOD SPECIMENOrdering Facility: [facility] Address: [address] [place] [address] Performed By: #### 5 7021-8 ####[facility] LABIA [id number] [place] [address] [place] WBC (Bld) [#/Vol] 14.30 10*3/uL High 3.70-11.00 [facility] Comment on above: Order Comment: Speci men Type: BLOOD SPECIMENOrdering Facility: [facility] Address: [address] [place] [address] Performed By: #### 5 7021-8 ####[facility] LABCLIA [id number] [place] [address] [place] WBC Left Shift Ql (Bld) Present Normal [facility] Comment on above: Order Comment: Speci men Type: BLOOD SPECIMENOrdering Facility: [facility] Address: [address] [place] [address] Performed By: #### 5 7021-8 ####[facility] LABIA [id number] [place] [address] [place] CNOVSPon 04-15-2025 CNOVSP Normal [facility] CNPNon 04-15-2025 CNPN Normal [facility] Comprehensive metabolic 2000 panelon 04-15-2025 Albumin [Mass/Vol] 3.6 g/dL Low 3.9-4.9 [facility] Comment on above: Order Comment: Speci men Type: BLOOD SPECIMENOrdering Facility: [facility] Address: [address] [place] [address] Performed By: #### 2 4323-8 ####[facility] MICKIWNCLIA [id number] [place] [address] [place] ALP [Catalytic activity/Vol] 229 U/L High 38-113 [facility] Comment on above: Order Comment: Speci men Type: BLOOD SPECIMENOrdering Facility: [facility] Address: [address] [place] [address] Performed By: #### 2 4323-8 ####[facility] PINE RIDGEWNCLIA [id number] [place] [address] [place] ALT [Catalytic activity/Vol] 20 U/L Normal 10-54 [facility] Comment on above: Order Comment: Speci men Type: BLOOD SPECIMENOrdering Facility: [facility] Address: [address] [place] [address] Performed By: #### 2 4323-8 ####[facility]ILLENCLIA [id number] [place] [address] [place] Anion gap [Moles/Vol] 13 mmol/L Normal 8-15 [facility] Comment on above: Order Comment: Speci men Type: BLOOD SPECIMENOrdering Facility: [facility] Address: [address] [place] [address] Performed By: #### 2 4323-8 ####[facility] MILLTOWNCLIA [id number] [place] [address] [place] AST [Catalytic activity/Vol] 40 U/L Normal 14-40 [facility] Comment on above: Order Comment: Speci men Type: BLOOD SPECIMENOrdering Facility: [facility] Address: [address] [place] [address] Performed By: #### 2 4323-8 ####[facility] MILLTOWNCLIA [id number] [place] [address] [place] Bilirubin [Mass/Vol] 0.2 mg/dL Normal 0.2-1.3 [facility] Comment on above: Order Comment: Speci men Type: BLOOD SPECIMENOrdering Facility: [facility] Address: [address] [place] [address] Performed By: #### 2 4323-8 ####[facility] MILLTOWNCLIA [id number] [place] [address] [place] Calcium [Mass/Vol] 8.8 mg/dL Normal 8.5-10.2 [facility] Comment on above: Order Comment: Speci men Type: BLOOD SPECIMENOrdering Facility: [facility] Address: [address] [place] [address] Performed By: #### 2 4323-8 ####[facility]ILLENCLIA [id number] [place] [address] [place] Chloride [Moles/Vol] 100 mmol/L Normal 98-107 [facility] Comment on above: Order Comment: Speci men Type: BLOOD SPECIMENOrdering Facility: [facility] Address: [address] [place] [address] Performed By: #### 2 4323-8 ####[facility] MILLWNCLIA [id number] [place] [address] [place] CO2 [Moles/Vol] 24 mmol/L Normal 22-30 [facility] Comment on above: Order Comment: Speci men Type: BLOOD SPECIMENOrdering Facility: [facility] Address: [address] [place] [address] Performed By: #### 2 4323-8 ####[facility]ILLENCLIA [id number] [place] [address] [place] Creatinine [Mass/Vol] 0.75 mg/dL Normal 0.73-1.22 [facility] Comment on above: Order Comment: Maury gama Type: BLOOD SPECIMENOrdering Facility: [facility] Address: [address] [place] [address] Performed By: #### 2 4323-8 ####[facility] [id number] [place] [address] [place] Creatinine and Glomerular filtration rate.predicted panel (S/P/Bld) 93 mL/min/1.73m??? Normal >=60 [facility] Comment on above: Order Comment: Maury gama Type: BLOOD SPECIMENOrdering Facility: [facility] Address: [address] [place] [address] Result Comment: Lulu mated Glomerular Filtration Rate (eGFR) is calculated using the 2020 CKD-EPI creatinine equation. This equation utilizes serum creatinine, sex, and age as parameters. The creatinine assay has traceable calibration to isotope dilution-mass spectrometry. Refer to KDIGO guidelines for clinical interpretation. In patients with unstable renal function, e.g. those with acute kidney injury, the eGFR may not accurately reflect actual GFR. Performed By: #### 2 4323-8 ####[facility] [id number] [place] [address] [place] Glucose [Mass/Vol] 157 mg/dL High 74-99 [facility] Comment on above: Order Comment: Maury gama Type: BLOOD SPECIMENOrdering Facility: [facility] Address: [address] [place] [address] Result Comment: The [place] Diabetes Association (ADA) provides guidance for cutoff values for fasting glucose and random glucose. The ADA defines fasting as no caloric intake for at least 8 hours. Fasting plasma glucose results between 100 to 125 mg/dL indicate increased risk for diabetes (prediabetes).Fasting plasma glucose results greater than or equal to 126 mg/dL meet the criteria for diagnosis of diabetes. In the absence of unequivocal hyperglycemia, results should be confirmed by repeat testing. In a patient with classic symptoms of hyperglycemia or hyperglycemic crisis, random plasma glucose results greater than or equal to 200 mg/dL meet the criteria for diagnosis of diabetes.Reference: Standards of Medical Care in Diabetes 2016, [place] [employer] Association. Diabetes Care. 2016.39(Suppl 1). Performed By: #### 2 4323-8 ####[facility] MYA CARRILLORASHAD [id number] [place] [address] [place] Potassium [Moles/Vol] 4.6 mmol/L Normal 3.7-5.1 [facility] Comment on above: Order Comment: Speci men Type: BLOOD SPECIMENOrdering Facility: [facility] Address: [address] [place] [address] Performed By: #### 2 4323-8 ####[facility]ASH[facility] [id number] [place] [address] [place] Protein [Mass/Vol] 6.6 g/dL Normal 6.3-8.0 [facility] Comment on above: Order Comment: Speci men Type: BLOOD SPECIMENOrdering Facility: [facility] Address: [address] [place] [address] Performed By: #### 2 4323-8 ####[facility] [id number] [place] [address] [place] Sodium [Moles/Vol] 137 mmol/L Normal 136-144 [facility] Comment on above: Order Comment: Speci men Type: BLOOD SPECIMENOrdering Facility: [facility] Address: [address] [place] [address] Performed By: #### 2 4323-8 ####[facility]SONVILLEHAIMLIA [id number] [place] [address] [place] Urea nitrogen [Mass/Vol] 24 mg/dL Normal 9-24 [facility] Comment on above: Order Comment: Speci men Type: BLOOD SPECIMENOrdering Facility: [facility] Address: [address] [place] [address] Performed By: #### 2 4323-8 ####[facility] MYA MILLTOWNCLIA [id number] [place] [address] [place] Cortis SerPl-mCncon 20 25 Cortisol [Mass/Vol] 7.9 ug/dL Normal 4.8-19.5 [facility] Comment on above: Order Comment: Speci men Type: BLOOD SPECIMENOrdering Facility: [facility] Address: [address] [place] [address] Result Comment: Prov ided reference range is from 6-10 AM sample collection time.Cortisol Reference Range: 6-10 AM = 4.8-19.5 ug/dL, 4-8 PM = 2.5-11.9 ug/dL Performed By: #### 3 024-7, 3015-3, 2143-03 ####[facility] LABCLIA [id number] [place] [address] [place] T4 Free SerPl-mCncon 2 025 Free T4 [Mass/Vol] 1.3 ng/dL Normal 0.9-1.7 [facility] Comment on above: Order Comment: Speci men Type: BLOOD SPECIMENOrdering Facility: [facility] Address: [address] [place] [address] Performed By: #### 3 024-7, 3015-3, 2143-03 ####[facility] LABCLIA [id number] [place] [address] [place] TSH SerPl-aCncon 04-15-2025 TSH Qn 1.700 m[IU]/L Normal 0.270-4.200 [facility] Comment on above: Order Comment: Speci men Type: BLOOD SPECIMENOrdering Facility: [facility] Address: [address] [place] [address] Performed By: #### 3 024-7, 301-3, 2143-03 ####[facility] LABCLIA [id number] [place] [address] [place] CNCNPATEDon 04-02-2025 CNCNPATED Normal [facility] metabolic 2000 panelOrdered By: Lesly Lopes on 04-02-2025 Albumin [Mass/Vol] 3.7 g/dL Low 3.9 - 4.9 g/dL [facility] ALP [Catalytic activity/Vol] 152 U/L High 38 - 113 U/L [facility] ALT [Catalytic activity/Vol] 19 U/L 10 - 54 U/L [facility] Anion gap [Moles/Vol] 10 mmol/L 8 - 15 mmol/L [facility] AST [Catalytic activity/Vol] 29 U/L 14 - 40 U/L [facility] Bilirubin [Mass/Vol] 0.3 mg/dL 0.2 - 1 .3 mg/dL [facility] Calcium [Mass/Vol] 9 mg/dL 8.5 - 10. 2 mg/dL [facility] Chloride [Moles/Vol] 102 mmol/L 98 - 10 7 mmol/L [facility] CO2 [Moles/Vol] 23 mmol/L 22 - 30 mmol/L [facility] Creatinine [Mass/Vol] 0.76 mg/dL 0.73 - 1.22 mg/dL [facility] GFR/1.73 sq M.predicted among non-blacks MDRD (S/P/Bld) [Vol rate/Area] 93 mL/min/{1.73_m2} - PINF [facility] Comment on above: Estimated Glomerular Filtration Rate (eGFR) is calculated using the 2020 CKD-EPI creatinine equation. This equation utilizes serum creatinine, sex, and age as parameters. The creatinine assay has traceable calibration to isotope dilution-mass spectrometry. Refer to KDIGO guidelines for clinical interpretation. In patients with unstable renal function, e.g. those with acute kidney injury, the eGFR may not accurately reflect actual GFR. Glucose [Mass/Vol] 93 mg/dL 74 - 99 mg/dL [facility] Comment on above: The [place] Diabete s Association (ADA) provides guidance for cutoff values for fasting glucose and random glucose. The ADA defines fasting as no caloric intake for at least 8 hours. Fasting plasma glucose results between 100 to 125 mg/dL indicate increased risk for diabetes (prediabetes). Fasting plasma glucose results greater than or equal to 126 mg/dL meet the criteria for diagnosis of diabetes. In the absence of unequivocal hyperglycemia, results should be confirmed by repeat testing. In a patient with classic symptoms of hyperglycemia or hyperglycemic crisis, random plasma glucose results greater than or equal to 200 mg/dL meet the criteria for diagnosis of diabetes. Reference: Standards of Medical Care in Diabetes 2016, [place] [employer]. Diabetes Care. 2016.39(Suppl 1). Interpretation and review of laboratory results Abnormal [facility] Potassium [Moles/Vol] 4.3 mmol/L 3.7 - 5.1 mmol/L [facility] Protein [Mass/Vol] 6.3 g/dL 6.3 - 8.0 g/dL [facility] Sodium [Moles/Vol] 135 mmol/L Low 136 - 144 mmol/L [facility] Urea nitrogen [Mass/Vol] 31 mg/dL High 9 - 24 mg/dL [facility] Comprehensive metabolic 2000 panelon 04-02-2025 Albumin [Mass/Vol] 3.7 g/dL Low 3.9-4.9 [facility] Comment on above: Order Comment: Speci men Type: BLOOD SPECIMENOrdering Facility: [facility] Address: [address] [place] [address] Performed By: #### 2 4323-8 ####[facility]ITALLIA [id number] [place] [address] [place] ALP [Catalytic activity/Vol] 152 U/L High 38-113 [facility] Comment on above: Order Comment: Ektai natan Type: BLOOD SPECIMENOrdering Facility: [facility] Address: [address] [place] [address] Performed By: #### 2 4323-8 ####[facility] P[facility] RIDGEWNCLIA [id number] [place] [address] [place] ALT [Catalytic activity/Vol] 19 U/L Normal 10-54 [facility] Comment on above: Order Comment: Ektai men Type: BLOOD SPECIMENOrdering Facility: [facility] Address: [address] [place] [address] Performed By: #### 2 4323-8 ####[facility]ITALLIA [id number] [place] [address] [place] Anion gap [Moles/Vol] 10 mmol/L Normal 8-15 [facility] Comment on above: Order Comment: Speci men Type: BLOOD SPECIMENOrdering Facility: [facility] Address: [address] [place] [address] Performed By: #### 2 4323-8 ####[facility] P[facility] RIDGEWNCLIA [id number] [place] [address] [place] AST [Catalytic activity/Vol] 29 U/L Normal 14-40 [facility] Comment on above: Order Comment: Speci men Type: BLOOD SPECIMENOrdering Facility: [facility] Address: [address] [place] [address] Performed By: #### 2 4323-8 ####[facility]ILLENCLIA [id number] [place] [address] [place] Bilirubin [Mass/Vol] 0.3 mg/dL Normal 0.2-1.3 [facility] Comment on above: Order Comment: Speci men Type: BLOOD SPECIMENOrdering Facility: [facility] Address: [address] [place] [address] Performed By: #### 2 4323-8 ####[facility]CL[facility] [id number] [place] [address] [place] Calcium [Mass/Vol] 9.0 mg/dL Normal 8.5-10.2 [facility] Comment on above: Order Comment: Speci men Type: BLOOD SPECIMENOrdering Facility: [facility] Address: [address] [place] [address] Performed By: #### 2 4323-8 ####[facility]CL[facility] [id number] [place] [address] [place] Chloride [Moles/Vol] 102 mmol/L Normal 98-107 [facility] Comment on above: Order Comment: Speci men Type: BLOOD SPECIMENOrdering Facility: [facility] Address: [address] [place] [address] Performed By: #### 2 4323-8 ####[facility] ALEXISWNCLIA [id number] [place] [address] [place] CO2 [Moles/Vol] 23 mmol/L Normal 22-30 [facility] Comment on above: Order Comment: Speci men Type: BLOOD SPECIMENOrdering Facility: [facility] Address: [address] [place] [address] Performed By: #### 2 4323-8 ####[facility] PINE RIDGEWNCLIA [id number] [address] [place] Creatinine [Mass/Vol] 0.76 mg/dL Normal 0.73-1.22 [facility] Comment on above: Order Comment: Speci men Type: BLOOD SPECIMENOrdering Facility: [facility] Address: [address] [place] [address] Performed By: #### 2 4323-8 ####[facility]CL[facility] [id number] [address] Creatinine and Glomerular filtration rate.predicted panel (S/P/Bld) 93 mL/min/1.73m??? Normal >=60 [facility] Comment on above: Order Comment: Speci men Type: BLOOD SPECIMENOrdering Facility: [facility] Address: [address] [place] [address] Result Comment: Lulu mated Glomerular Filtration Rate (eGFR) is calculated using the 2020 CKD-EPI creatinine equation. This equation utilizes serum creatinine, sex, and age as parameters. The creatinine assay has traceable calibration to isotope dilution-mass spectrometry. Refer to KDIGO guidelines for clinical interpretation. In patients with unstable renal function, e.g. those with acute kidney injury, the eGFR may not accurately reflect actual GFR. Performed By: #### 2 4323-8 ####[facility] P[facility] RIDGEWNCLIA [id number] [place] [address] [place] Glucose [Mass/Vol] 93 mg/dL Normal 74-99 [facility] Comment on above: Order Comment: Speci men Type: BLOOD SPECIMENOrdering Facility: [facility] Address: [address] [place], [place] [address] Result Comment: The [place] Diabetes Association (ADA) provides guidance for cutoff values for fasting glucose and random glucose. The ADA defines fasting as no caloric intake for at least 8 hours. Fasting plasma glucose results between 100 to 125 mg/dL indicate increased risk for diabetes (prediabetes).Fasting plasma glucose results greater than or equal to 126 mg/dL meet the criteria for diagnosis of diabetes. In the absence of unequivocal hyperglycemia, results should be confirmed by repeat testing. In a patient with classic symptoms of hyperglycemia or hyperglycemic crisis, random plasma glucose results greater than or equal to 200 mg/dL meet the criteria for diagnosis of diabetes.Reference: Standards of Medical Care in Diabetes 2016, [place] [employer]. Diabetes Care. 2016.39(Suppl 1). Performed By: #### 2 4323-8 ####[facility] P[facility] RIDGEWNCLIA [id number] [place] [address] [place] Potassium [Moles/Vol] 4.3 mmol/L Normal 3.7-5.1 [facility] Comment on above: Order Comment: Speci men Type: BLOOD SPECIMENOrdering Facility: [facility] Address: [address] [place] [address] Performed By: #### 2 4323-8 ####[facility] MILLTOWNCLIA [id number] [place] [address] [place] Protein [Mass/Vol] 6.3 g/dL Normal 6.3-8.0 [facility] Comment on above: Order Comment: Speci men Type: BLOOD SPECIMENOrdering Facility: [facility] Address: [address] [place], [place] [address] Performed By: #### 2 4323-8 ####[facility] P[facility] RIDGEWNCLIA [id number] [place] [address] [place] Sodium [Moles/Vol] 135 mmol/L Low 136-144 [facility] Comment on above: Order Comment: Speci men Type: BLOOD SPECIMENOrdering Facility: [facility] Address: [address] [place] [address] Performed By: #### 2 4323-8 ####[facility] HOSPITALARELISWMAISHAA [id number] [place] [address] [place] Urea nitrogen [Mass/Vol] 31 mg/dL High 9-24 [facility] Comment on above: Order Comment: Speci men Type: BLOOD SPECIMENOrdering Facility: [facility] Address: [address] [place] [address] Performed By: #### 2 4323-8 ####[facility] HOSPITALROMINANCLITiffani [id number] [place] [address] [place] CBC W Auto Differential pane l (Bld)on 04-01-2025 Basophils (Bld) [#/Vol] 10*3/uL Normal <0.11 [facility] Comment on above: Order Comment: Speci men Type: BLOOD SPECIMENOrdering Facility: [facility] Address: [address] [place] [address] Performed By: #### 5 7021-8 ####[facility] P[facility] RIDGEEVA [id number] [place] [address] [place] Basophils/100 WBC (Bld) 0.9 % Normal [facility] Comment on above: Order Comment: Speci men Type: BLOOD SPECIMENOrdering Facility: [facility] Address: [address] [place] [address] Performed By: #### 5 7021-8 ####[facility]ILLENCLIA [id number] [place] [address] [place] Differential cell count method Nom (Bld) Auto Normal [facility] Comment on above: Order Comment: Speci men Type: BLOOD SPECIMENOrdering Facility: [facility] Address: [address] [place] [address] Performed By: #### 5 7021-8 ####[facility] MICKILING [id number] [place] [address] [place] Eosinophils (Bld) [#/Vol] 0.03 10*3/uL Normal <0.46 [facility] Comment on above: Order Comment: Speci men Type: BLOOD SPECIMENOrdering Facility: [facility] Address: [address] [place] [address] Performed By: #### 5 7021-8 ####[facility]VILLEHAIMJORD[facility] [id number] [place] [address] [place] Eosinophils/100 WBC (Bld) 1.3 % Normal [facility] Comment on above: Order Comment: Speci men Type: BLOOD SPECIMENOrdering Facility: [facility] Address: [address] [place] [address] Performed By: #### 5 7021-8 ####[facility] [id number] [place] [address] [place] Erythrocyte distribution width (RBC) [Ratio] 16.1 % High 11.5-15.0 [facility] Comment on above: Order Comment: Speci men Type: BLOOD SPECIMENOrdering Facility: [facility] Address: [address] [place] [address] Performed By: #### 5 7021-8 ####[facility] PARKWAYA [id number] [place] [address] [place] Hematocrit (Bld) [Volume fraction] 26.0 % Low 39.0-51.0 [facility] Comment on above: Order Comment: Speci men Type: BLOOD SPECIMENOrdering Facility: [facility] Address: [address] [place] [address] Performed By: #### 5 7021-8 ####[facility] MICKISamanthaNCLIA [id number] [place] [address] [place] Hemoglobin (Bld) [Mass/Vol] 8.7 g/dL Low 13.0-17.0 [facility] Comment on above: Order Comment: Speci men Type: BLOOD SPECIMENOrdering Facility: [facility] Address: [address] [place] [address] Performed By: #### 5 7021-8 ####[facility] [id number] [place] [address] [place] Immature granulocytes (Bld) [#/Vol] 10*3/uL Normal <0.10 [facility] Comment on above: Order Comment: Speci men Type: BLOOD SPECIMENOrdering Facility: [facility] Address: [address] [place] [address] Performed By: #### 5 7021-8 ####[facility]ARK[facility]A [id number] [place] [address] [place] Immature granulocytes/100 WBC (Bld) 0.4 % Normal [facility] Comment on above: Order Comment: Speci men Type: BLOOD SPECIMENOrdering Facility: [facility] Address: [address] [place] [address] Performed By: #### 5 7021-8 ####[facility] [id number] [place] [address] [place] Lymphocytes (Bld) [#/Vol] 0.44 10*3/uL Low 1.00-4.00 [facility] Comment on above: Order Comment: Speci men Type: BLOOD SPECIMENOrdering Facility: [facility] Address: [address] [place] [address] Performed By: #### 5 7021-8 ####[facility] [id number] [place] [address] [place] Lymphocytes/100 WBC (Bld) 19.4 % Normal [facility] Comment on above: Order Comment: Speci men Type: BLOOD SPECIMENOrdering Facility: [facility] Address: [address] [place] [address] Performed By: #### 5 7021-8 ####[facility] [id number] [place] [address] [place] MCH (RBC) [Entitic mass] 32.6 pg Normal 26.0-34.0 [facility] Comment on above: Order Comment: Speci men Type: BLOOD SPECIMENOrdering Facility: [facility] Address: [address] [place] [address] Performed By: #### 5 7021-8 ####[facility] [id number] [place] [address] [place] MCHC (RBC) [Mass/Vol] 33.5 g/dL Normal 30.5-36.0 [facility] Comment on above: Order Comment: Speci men Type: BLOOD SPECIMENOrdering Facility: [facility] Address: [address] [place] [address] Performed By: #### 5 7021-8 ####[facility] [id number] [place] [address] [place] MCV (RBC) [Entitic vol] 97.4 fL Normal 80.0-100.0 [facility] Comment on above: Order Comment: Speci men Type: BLOOD SPECIMENOrdering Facility: [facility] Address: [address] [place] [address] Performed By: #### 5 7021-8 ####[facility] [id number] [place] [address] [place] Monocytes (Bld) [#/Vol] 0.10 10*3/uL Normal <0.87 [facility] Comment on above: Order Comment: Speci men Type: BLOOD SPECIMENOrdering Facility: [facility] Address: [address] [place] [address] Performed By: #### 5 7021-8 ####[facility]MA[facility] [id number] [place] [address] [place] Monocytes/100 WBC (Bld) 4.4 % Normal [facility] Comment on above: Order Comment: Speci men Type: BLOOD SPECIMENOrdering Facility: [facility] Address: [address] [place] [address] Performed By: #### 5 7021-8 ####[facility] [id number] [place] [address] [place] Neutrophils (Bld) [#/Vol] 1.67 10*3/uL Normal 1.45-7.50 [facility] Comment on above: Order Comment: Speci men Type: BLOOD SPECIMENOrdering Facility: [facility] Address: [address] [place] [address] Performed By: #### 5 7021-8 ####[facility] [id number] [place] [address] [place] Neutrophils/100 WBC (Bld) 73.6 % Normal [facility] Comment on above: Order Comment: Speci men Type: BLOOD SPECIMENOrdering Facility: [facility] Address: [address] [place] [address] Performed By: #### 5 7021-8 ####[facility] [id number] [place] [address] [place] Nucleated RBC (Bld) [#/Vol] 10*3/uL Normal <0.01 [facility] Comment on above: Order Comment: Speci men Type: BLOOD SPECIMENOrdering Facility: [facility] Address: [address] [place] [address] Performed By: #### 5 7021-8 ####[facility] MICKINIHARIKALIA [id number] [place] [address] [place] Nucleated RBC/100 WBC (Bld) [Ratio] 0.0 /100 WBC Normal [facility] Comment on above: Order Comment: Speci men Type: BLOOD SPECIMENOrdering Facility: [facility] Address: [address] [place] [address] Performed By: #### 5 7021-8 ####[facility] [id number] [place] [address] [place] Platelet mean volume (Bld) [Entitic vol] 9.1 fL Normal 9.0-12.7 [facility] Comment on above: Order Comment: Speci men Type: BLOOD SPECIMENOrdering Facility: [facility] Address: [address] [place] [address] Performed By: #### 5 7021-8 ####[facility] [id number] [place] [address] [place] Platelets (Bld) [#/Vol] 212 10*3/uL Normal 150-400 [facility] Comment on above: Order Comment: Speci men Type: BLOOD SPECIMENOrdering Facility: [facility] Address: [address] [place] [address] Performed By: #### 5 7021-8 ####[facility] [id number] [place] [address] [place] RBC (Bld) [#/Vol] 2.67 10*6/uL Low 4.20-6.00 [facility] Comment on above: Order Comment: Speci men Type: BLOOD SPECIMENOrdering Facility: [facility] Address: [address] [place] [address] Performed By: #### 5 7021-8 ####[facility] [id number] [place] [address] [place] WBC (Bld) [#/Vol] 2.27 10*3/uL Low 3.70-11.00 [facility] Comment on above: Order Comment: Speci men Type: BLOOD SPECIMENOrdering Facility: [facility] Address: [address] [place] [address] Performed By: #### 5 7021-8 ####[facility]LEHAIML[facility] [id number] [place] [address] [place] MRI LIVER WO/W IVCONon 04-01 MRI LIVER WO/W IVCON Normal [facility] CBC W Auto Differential pane l (Bld)on 03-26-2025 Basophils (Bld) [#/Vol] 0.03 10*3/uL Normal <0.11 [facility] Comment on above: Order Comment: Speci men Type: BLOOD SPECIMENOrdering Facility: [facility] Address: [address] [place] [address] Performed By: #### 5 7021-8 ####[facility] [id number] [place] [address] [place] Basophils/100 WBC (Bld) 0.7 % Normal [facility] Comment on above: Order Comment: Speci men Type: BLOOD SPECIMENOrdering Facility: [facility] Address: [address] [place] [address] Performed By: #### 5 7021-8 ####[facility] [id number] [place] [address] [place] Differential cell count method Nom (Bld) Auto Normal [facility] Comment on above: Order Comment: Speci men Type: BLOOD SPECIMENOrdering Facility: [facility] Address: [address] [place] [address] Performed By: #### 5 7021-8 ####[facility] [id number] [place] [address] [place] Eosinophils (Bld) [#/Vol] 0.10 10*3/uL Normal <0.46 [facility] Comment on above: Order Comment: Speci men Type: BLOOD SPECIMENOrdering Facility: [facility] Address: [address] [place] [address] Performed By: #### 5 7021-8 ####[facility]PITALCYNTHIAA [id number] [place] [address] [place] Eosinophils/100 WBC (Bld) 2.2 % Normal [facility] Comment on above: Order Comment: Speci men Type: BLOOD SPECIMENOrdering Facility: [facility] Address: [address] [place] [address] Performed By: #### 5 7021-8 ####[facility]CL[facility] [id number] [place] [address] [place] Erythrocyte distribution width (RBC) [Ratio] 17.1 % High 11.5-15.0 [facility] Comment on above: Order Comment: Speci men Type: BLOOD SPECIMENOrdering Facility: [facility] Address: [address] [place] [address] Performed By: #### 5 7021-8 ####[facility] [id number] [place] [address] [place] Hematocrit (Bld) [Volume fraction] 28.3 % Low 39.0-51.0 [facility] Comment on above: Order Comment: Speci men Type: BLOOD SPECIMENOrdering Facility: [facility] Address: [address] [place] [address] Performed By: #### 5 7021-8 ####[facility] [id number] [place] [address] [place] Hemoglobin (Bld) [Mass/Vol] 9.2 g/dL Low 13.0-17.0 [facility] Comment on above: Order Comment: Speci men Type: BLOOD SPECIMENOrdering Facility: [facility] Address: [address] [place] [address] Performed By: #### 5 7021-8 ####[facility] [id number] [place] [address] [place] Immature granulocytes (Bld) [#/Vol] 0.11 10*3/uL High <0.10 [facility] Comment on above: Order Comment: Speci men Type: BLOOD SPECIMENOrdering Facility: [facility] Address: [address] [place] [address] Performed By: #### 5 7021-8 ####[facility] [id number] [place] [address] [place] Immature granulocytes/100 WBC (Bld) 2.4 % Normal [facility] Comment on above: Order Comment: Speci men Type: BLOOD SPECIMENOrdering Facility: [facility] Address: [address] [place] [address] Performed By: #### 5 7021-8 ####[facility] [id number] [place] [address] [place] Lymphocytes (Bld) [#/Vol] 0.72 10*3/uL Low 1.00-4.00 [facility] Comment on above: Order Comment: Speci men Type: BLOOD SPECIMENOrdering Facility: [facility] Address: [address] [place] [address] Performed By: #### 5 7021-8 ####[facility] [id number] [place] [address] [place] Lymphocytes/100 WBC (Bld) 15.9 % Normal [facility] Comment on above: Order Comment: Speci men Type: BLOOD SPECIMENOrdering Facility: [facility] Address: [address] [place] [address] Performed By: #### 5 7021-8 ####[facility]CL[facility] [id number] [place] [address] [place] MCH (RBC) [Entitic mass] 32.5 pg Normal 26.0-34.0 [facility] Comment on above: Order Comment: Speci men Type: BLOOD SPECIMENOrdering Facility: [facility] Address: [address] [place] [address] Performed By: #### 5 7021-8 ####[facility] [id number] [place] [address] [place] MCHC (RBC) [Mass/Vol] 32.5 g/dL Normal 30.5-36.0 [facility] Comment on above: Order Comment: Speci men Type: BLOOD SPECIMENOrdering Facility: [facility] Address: [address] [place] [address] Performed By: #### 5 7021-8 ####[facility] [id number] [place] [address] [place] MCV (RBC) [Entitic vol] 100.0 fL Normal 80.0-100.0 [facility] Comment on above: Order Comment: Speci men Type: BLOOD SPECIMENOrdering Facility: [facility] Address: [address] [place] [address] Performed By: #### 5 7021-8 ####[facility] [id number] [place] [address] [place] Monocytes (Bld) [#/Vol] 0.99 10*3/uL High <0.87 [facility] Comment on above: Order Comment: Speci men Type: BLOOD SPECIMENOrdering Facility: [facility] Address: [address] [place], [place] [address] Performed By: #### 5 7021-8 ####[facility] [id number] [place] [address] [place] Monocytes/100 WBC (Bld) 21.8 % Normal [facility] Comment on above: Order Comment: Speci men Type: BLOOD SPECIMENOrdering Facility: [facility] Address: [address] [place] [address] Performed By: #### 5 7021-8 ####[facility] [id number] [place] [address] [place] Neutrophils (Bld) [#/Vol] 2.59 10*3/uL Normal 1.45-7.50 [facility] Comment on above: Order Comment: Speci men Type: BLOOD SPECIMENOrdering Facility: [facility] Address: [address] [place] [address] Performed By: #### 5 7021-8 ####[facility] [id number] [place] [address] [place] Neutrophils/100 WBC (Bld) 57.0 % Normal [facility] Comment on above: Order Comment: Speci men Type: BLOOD SPECIMENOrdering Facility: [facility] Address: [address] [place] [address] Performed By: #### 5 7021-8 ####[facility] [id number] [place] [address] [place] Nucleated RBC (Bld) [#/Vol] 10*3/uL Normal <0.01 [facility] Comment on above: Order Comment: Speci men Type: BLOOD SPECIMENOrdering Facility: [facility] Address: [address] [place] [address] Performed By: #### 5 7021-8 ####[facility] [id number] [place] [address] [place] Nucleated RBC/100 WBC (Bld) [Ratio] 0.0 /100 WBC Normal [facility] Comment on above: Order Comment: Speci men Type: BLOOD SPECIMENOrdering Facility: [facility] Address: [address] [place] [address] Performed By: #### 5 7021-8 ####[facility] MYA HOLLIDAY [id number] [place] [address] [place] Platelet mean volume (Bld) [Entitic vol] 8.4 fL Low 9.0-12.7 [facility] Comment on above: Order Comment: Speci men Type: BLOOD SPECIMENOrdering Facility: [facility] Address: [address] [place] [address] Performed By: #### 5 7021-8 ####[facility] MICKIFRANKLINRASHAD [id number] [place] [address] [place] Platelets (Bld) [#/Vol] 418 10*3/uL High 150-400 [facility] Comment on above: Order Comment: Speci men Type: BLOOD SPECIMENOrdering Facility: [facility] Address: [address] [place] [address] Performed By: #### 5 7021-8 ####[facility]CCYNTHIAA [id number] [place] [address] [place] RBC (Bld) [#/Vol] 2.83 10*6/uL Low 4.20-6.00 [facility] Comment on above: Order Comment: Speci men Type: BLOOD SPECIMENOrdering Facility: [facility] Address: [address] [place] [address] Performed By: #### 5 7021-8 ####[facility] [id number] [place] [address] [place] WBC (Bld) [#/Vol] 4.54 10*3/uL Normal 3.70-11.00 [facility] Comment on above: Order Comment: Speci men Type: BLOOD SPECIMENOrdering Facility: [facility] Address: [address] [place] [address] Performed By: #### 5 7021-8 ####[facility] [id number] [place] [address] [place] Cancer Ag19-9 SerPl-aCncon 0 03-26-2025 Cancer Ag 19-9 Qn 10.0 [arb'U]/mL Normal <36.0 [facility] Comment on above: Order Comment: Speci men Type: BLOOD SPECIMENOrdering Facility: [facility] Address: [address] [place] [address] Result Comment: [facility] er antigen 19-9 test is used as an aid in monitoring response to treatment or recurrence in patients with established pancreatic, hepatobiliary, or gastrointestinal malignancies. Clinical correlation is required.The CA 19-9 Antigen test was performed using the [employer] Unicel DXI paramagnetic particle chemiluminescent immunoassay method. Results obtained with different assay methods or kits cannot be used interchangeably. Performed By: #### 2 4108-3 ####[facility] LABCLIA [id number] [place] [address] [place] Comprehensive metabolic 2000 panelon 03-26-2025 Albumin [Mass/Vol] 3.8 g/dL Low 3.9-4.9 [facility] Comment on above: Order Comment: Speci men Type: BLOOD SPECIMENOrdering Facility: [facility] Address: [address] [place] [address] Performed By: #### 2 4323-8 ####[facility] [id number] [place] [address] [place] ALP [Catalytic activity/Vol] 176 U/L High 38-113 [facility] Comment on above: Order Comment: Speci men Type: BLOOD SPECIMENOrdering Facility: [facility] Address: [address] [place] [address] Performed By: #### 2 4323-8 ####[facility] [id number] [place] [id number] [place] ALT [Catalytic activity/Vol] 13 U/L Normal 10-54 [facility] Comment on above: Order Comment: Speci men Type: BLOOD SPECIMENOrdering Facility: [facility] Address: [address] [place] [address] Performed By: #### 2 4323-8 ####[facility] MYA MILLTOWNCLIA [id number] [place] [address] [place] Anion gap [Moles/Vol] 12 mmol/L Normal 8-15 [facility] Comment on above: Order Comment: Speci men Type: BLOOD SPECIMENOrdering Facility: [facility] Address: [address] [place] [address] Performed By: #### 2 4323-8 ####[facility] PINE RIDGEWNCLIA [id number] [place] [address] [place] AST [Catalytic activity/Vol] 22 U/L Normal 14-40 [facility] Comment on above: Order Comment: Speci men Type: BLOOD SPECIMENOrdering Facility: [facility] Address: [address] [place] [address] Performed By: #### 2 4323-8 ####[facility] MYA MILLTOWNCLIA [id number] [place] [address] [place] Bilirubin [Mass/Vol] 0.3 mg/dL Normal 0.2-1.3 [facility] Comment on above: Order Comment: Speci men Type: BLOOD SPECIMENOrdering Facility: [facility] Address: [address] [place] [address] Performed By: #### 2 4323-8 ####[facility] MILLTOWNCLIA [id number] [place] [address] [place] Calcium [Mass/Vol] 9.6 mg/dL Normal 8.5-10.2 [facility] Comment on above: Order Comment: Speci men Type: BLOOD SPECIMENOrdering Facility: [facility] Address: [address] [place] [address] Performed By: #### 2 4323-8 ####[facility] [id number] [place] [address] [place] Chloride [Moles/Vol] 105 mmol/L Normal 98-107 [facility] Comment on above: Order Comment: Speci men Type: BLOOD SPECIMENOrdering Facility: [facility] Address: [address] [place] [address] Performed By: #### 2 4323-8 ####[facility] [id number] [place] [address] [place] CO2 [Moles/Vol] 24 mmol/L Normal 22-30 [facility] Comment on above: Order Comment: Speci men Type: BLOOD SPECIMENOrdering Facility: [facility] Address: [address] [place] [address] Performed By: #### 2 4323-8 ####[facility] PARK[facility]A [id number] [place] [address] [place] Creatinine [Mass/Vol] 1.05 mg/dL Normal 0.73-1.22 [facility] Comment on above: Order Comment: Speci men Type: BLOOD SPECIMENOrdering Facility: [facility] Address: [address] [place] [address] Performed By: #### 2 4323-8 ####[facility] [id number] [place] [address] [place] Creatinine and Glomerular filtration rate.predicted panel (S/P/Bld) 73 mL/min/1.73m??? Normal >=60 [facility] Comment on above: Order Comment: Speci men Type: BLOOD SPECIMENOrdering Facility: [facility] Address: [address] [place] [address] Result Comment: Lulu mated Glomerular Filtration Rate (eGFR) is calculated using the 2020 CKD-EPI creatinine equation. This equation utilizes serum creatinine, sex, and age as parameters. The creatinine assay has traceable calibration to isotope dilution-mass spectrometry. Refer to KDIGO guidelines for clinical interpretation. In patients with unstable renal function, e.g. those with acute kidney injury, the eGFR may not accurately reflect actual GFR. Performed By: #### 2 4323-8 ####[facility] [id number] [place] [address] [place] Glucose [Mass/Vol] 130 mg/dL High 74-99 [facility] Comment on above: Order Comment: Maury gama Type: BLOOD SPECIMENOrdering Facility: [facility] Address: [address] [place] [address] Result Comment: The [place] [employer] (ADA) provides guidance for cutoff values for fasting glucose and random glucose. The ADA defines fasting as no caloric intake for at least 8 hours. Fasting plasma glucose results between 100 to 125 mg/dL indicate increased risk for diabetes (prediabetes).Fasting plasma glucose results greater than or equal to 126 mg/dL meet the criteria for diagnosis of diabetes. In the absence of unequivocal hyperglycemia, results should be confirmed by repeat testing. In a patient with classic symptoms of hyperglycemia or hyperglycemic crisis, random plasma glucose results greater than or equal to 200 mg/dL meet the criteria for diagnosis of diabetes.Reference: Standards of Medical Care in Diabetes 2016, [place] [employer]. Diabetes Care. 2016.39(Suppl 1). Performed By: #### 2 4323-8 ####[facility] [id number] [place] [address] [place] Potassium [Moles/Vol] 4.4 mmol/L Normal 3.7-5.1 [facility] Comment on above: Order Comment: Maury gama Type: BLOOD SPECIMENOrdering Facility: [facility] Address: [address] [place] [address] Performed By: #### 2 4323-8 ####[facility]LEHAIML[facility] [id number] [place] [address] [place] Protein [Mass/Vol] 6.9 g/dL Normal 6.3-8.0 [facility] Comment on above: Order Comment: Speci men Type: BLOOD SPECIMENOrdering Facility: [facility] Address: [address] [place] [address] Performed By: #### 2 4323-8 ####[facility] [id number] [place] [address] [place] Sodium [Moles/Vol] 141 mmol/L Normal 136-144 [facility] Comment on above: Order Comment: Speci men Type: BLOOD SPECIMENOrdering Facility: [facility] Address: [address] [place] [address] Performed By: #### 2 4323-8 ####[facility] [id number] [place] [address] [place] Urea nitrogen [Mass/Vol] 27 mg/dL High 9-24 [facility] Comment on above: Order Comment: Speci men Type: BLOOD SPECIMENOrdering Facility: [facility] Address: [address] [place] [address] Performed By: #### 2 4323-8 ####[facility] [id number] [place] [address] [place] CBC W Auto Differential pane l (Bld)on 03-21-2025 Basophils (Bld) [#/Vol] 10*3/uL Normal <0.11 [facility] Comment on above: Order Comment: Speci men Type: BLOOD SPECIMENOrdering Facility: [facility] [facility] Address: [address] [place] [address] Performed By: #### 5 7021-8 ####[facility] [id number] [place] [address] [place] Basophils/100 WBC (Bld) 0.4 % Normal [facility] Comment on above: Order Comment: Speci men Type: BLOOD SPECIMENOrdering Facility: [facility] Address: [address] [place] [address] Performed By: #### 5 7021-8 ####[facility] MG [id number] [place] [address] [place] Differential cell count method Nom (Bld) Auto Normal [facility] Comment on above: Order Comment: Speci men Type: BLOOD SPECIMENOrdering Facility: [facility] Address: [address] [place] [address] Performed By: #### 5 7021-8 ####[facility] [id number] [place] [address] [place] Eosinophils (Bld) [#/Vol] 0.12 10*3/uL Normal <0.46 [facility] Comment on above: Order Comment: Speci men Type: BLOOD SPECIMENOrdering Facility: [facility] Address: [address] [place] [address] Performed By: #### 5 7021-8 ####[facility]ENCCYNTHIAA [id number] [place] [address] [place] Eosinophils/100 WBC (Bld) 5.2 % Normal [facility] Comment on above: Order Comment: Speci men Type: BLOOD SPECIMENOrdering Facility: [facility] Address: [address] [place] [address] Performed By: #### 5 7021-8 ####[facility]ILL[facility]CL[facility] [id number] [place] [address] [place] Erythrocyte distribution width (RBC) [Ratio] 16.9 % High 11.5-15.0 [facility] Comment on above: Order Comment: Speci men Type: BLOOD SPECIMENOrdering Facility: [facility] Address: [address] [place] [address] Performed By: #### 5 7021-8 ####[facility]VILLEHAIMLIA [id number] [place] [address] [place] Hematocrit (Bld) [Volume fraction] 25.3 % Low 39.0-51.0 [facility] Comment on above: Order Comment: Speci men Type: BLOOD SPECIMENOrdering Facility: [facility] Address: [address] [place] [address] Performed By: #### 5 7021-8 ####[facility]LEMAISHA [id number] [place] [address] [place] Hemoglobin (Bld) [Mass/Vol] 8.6 g/dL Low 13.0-17.0 [facility] Comment on above: Order Comment: Speci men Type: BLOOD SPECIMENOrdering Facility: [facility] Address: [address] [place] [address] Performed By: #### 5 7021-8 ####[facility] [id number] [place] [address] [place] Immature granulocytes (Bld) [#/Vol] 0.05 10*3/uL Normal <0.10 [facility] Comment on above: Order Comment: Speci men Type: BLOOD SPECIMENOrdering Facility: [facility] Address: [address] [place] [address] Performed By: #### 5 7021-8 ####[facility] [id number] [place] [address] [place] Immature granulocytes/100 WBC (Bld) 2.1 % Normal [facility] Comment on above: Order Comment: Speci men Type: BLOOD SPECIMENOrdering Facility: [facility] Address: [address] [place] [address] Performed By: #### 5 7021-8 ####[facility]ILLENCL[facility] [id number] [place] [address] [place] Lymphocytes (Bld) [#/Vol] 0.72 10*3/uL Low 1.00-4.00 [facility] Comment on above: Order Comment: Speci men Type: BLOOD SPECIMENOrdering Facility: [facility] Address: [address] [place] [address] Performed By: #### 5 7021-8 ####[facility]ILLENCA [id number] [place] [address] [place] Lymphocytes/100 WBC (Bld) 30.9 % Normal [facility] Comment on above: Order Comment: Speci men Type: BLOOD SPECIMENOrdering Facility: [facility] Address: [address] [place] [address] Performed By: #### 5 7021-8 ####[facility]ENC[facility] [id number] [place] [address] [place] MCH (RBC) [Entitic mass] 33.2 pg Normal 26.0-34.0 [facility] Comment on above: Order Comment: Speci men Type: BLOOD SPECIMENOrdering Facility: [facility] Address: [address] [place] [address] Performed By: #### 5 7021-8 ####[facility]VILLENCLI [id number] [place] [address] [place] MCHC (RBC) [Mass/Vol] 34.0 g/dL Normal 30.5-36.0 [facility] Comment on above: Order Comment: Speci men Type: BLOOD SPECIMENOrdering Facility: [facility] Address: [address] [place], [place] [address] Performed By: #### 5 7021-8 ####[facility]ILLENCLI [id number] [place] [address] [place] MCV (RBC) [Entitic vol] 97.7 fL Normal 80.0-100.0 [facility] Comment on above: Order Comment: Speci men Type: BLOOD SPECIMENOrdering Facility: [facility] Address: [address] [place] [address] Performed By: #### 5 7021-8 ####[facility] MICKIST. [facility]INC[facility] HOSPITALLIA [id number] [place] [address] [place] Monocytes (Bld) [#/Vol] 0.80 10*3/uL Normal <0.87 [facility] Comment on above: Order Comment: Speci men Type: BLOOD SPECIMENOrdering Facility: [facility] Address: [address] [place] [address] Performed By: #### 5 7021-8 ####[facility] PARKWAYA [id number] [place] [address] [place] Monocytes/100 WBC (Bld) 34.3 % Normal [facility] Comment on above: Order Comment: Speci men Type: BLOOD SPECIMENOrdering Facility: [facility] Address: [address] [place] [address] Performed By: #### 5 7021-8 ####[facility]A [id number] [place] [address] [place] Neutrophils (Bld) [#/Vol] 0.63 10*3/uL Low 1.45-7.50 [facility] Comment on above: Order Comment: Speci men Type: BLOOD SPECIMENOrdering Facility: [facility] Address: [address] [place] [address] Performed By: #### 5 7021-8 ####[facility] [id number] [place] [address] [place] Neutrophils/100 WBC (Bld) 27.1 % Normal [facility] Comment on above: Order Comment: Speci men Type: BLOOD SPECIMENOrdering Facility: [facility] Address: [address] [place] [address] Performed By: #### 5 7021-8 ####[facility] [id number] [place] [address] [place] Nucleated RBC (Bld) [#/Vol] 10*3/uL Normal <0.01 [facility] Comment on above: Order Comment: Speci men Type: BLOOD SPECIMENOrdering Facility: [facility] Address: [address] [place] [address] Performed By: #### 5 7021-8 ####[facility]ILLERASHAD [id number] [place] [address] [place] Nucleated RBC/100 WBC (Bld) [Ratio] 0.0 /100 WBC Normal [facility] Comment on above: Order Comment: Speci men Type: BLOOD SPECIMENOrdering Facility: [facility] Address: [address] [place] [address] Performed By: #### 5 7021-8 ####[facility] [id number] [place] [address] [place] Platelet mean volume (Bld) [Entitic vol] 8.5 fL Low 9.0-12.7 [facility] Comment on above: Order Comment: Speci men Type: BLOOD SPECIMENOrdering Facility: [facility] Address: [address] [place] [address] Performed By: #### 5 7021-8 ####[facility]ITALWINIFRED [id number] [place] [address] [place] Platelets (Bld) [#/Vol] 405 10*3/uL High 150-400 [facility] Comment on above: Order Comment: Speci men Type: BLOOD SPECIMENOrdering Facility: [facility] Address: [address] [place] [address] Performed By: #### 5 7021-8 ####[facility]ILLENCLI [id number] [place] [address] [place] RBC (Bld) [#/Vol] 2.59 10*6/uL Low 4.20-6.00 [facility] Comment on above: Order Comment: Speci men Type: BLOOD SPECIMENOrdering Facility: [facility] Address: [address] [place] [address] Performed By: #### 5 7021-8 ####[facility] P[facility] RIDGEWNCLIA [id number] [place] [address] [place] WBC (Bld) [#/Vol] 2.33 10*3/uL Low 3.70-11.00 [facility] Comment on above: Order Comment: Speci men Type: BLOOD SPECIMENOrdering Facility: [facility] Address: [address] [place] [address] Performed By: #### 5 7021-8 ####[facility]EN[facility] [id number] [place] [address] [place] CNOVSPon 03-21-2025 CNOVSP Normal [facility] Comprehensive metabolic 2000 panelon 03-21-2025 Albumin [Mass/Vol] 3.7 g/dL Low 3.9-4.9 [facility] Comment on above: Order Comment: Speci men Type: BLOOD SPECIMENOrdering Facility: [facility] Address: [address] [place] [address] Performed By: #### 2 4323-8 ####[facility]CL[facility] [id number] [place] [address] [place] ALP [Catalytic activity/Vol] 191 U/L High 38-113 [facility] Comment on above: Order Comment: Speci men Type: BLOOD SPECIMENOrdering Facility: [facility] Address: [address] [place] [address] Performed By: #### 2 4323-8 ####[facility] P[facility] RIDGEWNCLIA [id number] [place] [address] [place] ALT [Catalytic activity/Vol] 16 U/L Normal 10-54 [facility] Comment on above: Order Comment: Speci men Type: BLOOD SPECIMENOrdering Facility: [facility] Address: [address] [place] [address] Performed By: #### 2 4323-8 ####[facility]ITALTOWNCLIA [id number] [place] [address] [place] Anion gap [Moles/Vol] 13 mmol/L Normal 8-15 [facility] Comment on above: Order Comment: Speci men Type: BLOOD SPECIMENOrdering Facility: [facility] Address: [address] [place] [address] Performed By: #### 2 4323-8 ####[facility] [id number] [place] [address] [place] AST [Catalytic activity/Vol] 30 U/L Normal 14-40 [facility] Comment on above: Order Comment: Speci men Type: BLOOD SPECIMENOrdering Facility: [facility] Address: [address] [place] [address] Performed By: #### 2 4323-8 ####[facility] [id number] [place] [address] [place] Bilirubin [Mass/Vol] 0.4 mg/dL Normal 0.2-1.3 [facility] Comment on above: Order Comment: Speci men Type: BLOOD SPECIMENOrdering Facility: [facility] Address: [address] [place] [address] Performed By: #### 2 4323-8 ####[facility]CL[facility] [id number] [place] [address] [place] Calcium [Mass/Vol] 9.2 mg/dL Normal 8.5-10.2 [facility] Comment on above: Order Comment: Speci men Type: BLOOD SPECIMENOrdering Facility: [facility] Address: [address] [id number] Performed By: #### 2 4323-8 ####[facility] [id number] [place] [address] [place] Chloride [Moles/Vol] 102 mmol/L Normal 98-107 [facility] Comment on above: Order Comment: Speci men Type: BLOOD SPECIMENOrdering Facility: [facility] Address: [address] [place] [address] Performed By: #### 2 4323-8 ####[facility] [id number] [place] [address] [place] CO2 [Moles/Vol] 22 mmol/L Normal 22-30 [facility] Comment on above: Order Comment: Speci men Type: BLOOD SPECIMENOrdering Facility: [facility] Address: [address] [place] [address] Performed By: #### 2 4323-8 ####[facility] [id number] [place] [address] [place] Creatinine [Mass/Vol] 0.82 mg/dL Normal 0.73-1.22 [facility] Comment on above: Order Comment: Speci men Type: BLOOD SPECIMENOrdering Facility: [facility] Address: [address] [place] [address] Performed By: #### 2 4323-8 ####[facility] [id number] [place] [address] [place] [facility] Creatinine and Glomerular filtration rate.predicted panel (S/P/Bld) 90 mL/min/1.73m??? Normal >=60 [facility] Comment on above: Order Comment: Speci men Type: BLOOD SPECIMENOrdering Facility: [facility] Address: [address] [place] [address] Result Comment: Lulu mated Glomerular Filtration Rate (eGFR) is calculated using the 2020 CKD-EPI creatinine equation. This equation utilizes serum creatinine, sex, and age as parameters. The creatinine assay has traceable calibration to isotope dilution-mass spectrometry. Refer to KDIGO guidelines for clinical interpretation. In patients with unstable renal function, e.g. those with acute kidney injury, the eGFR may not accurately reflect actual GFR. Performed By: #### 2 4323-8 ####[facility] P[facility] RIDGEWNCLITiffani [id number] [place] [address] [place] Glucose [Mass/Vol] 90 mg/dL Normal 74-99 [facility] Comment on above: Order Comment: Maury gama Type: BLOOD SPECIMENOrdering Facility: [facility] Address: [address] [place] [address] Result Comment: The [place] [employer] (ADA) provides guidance for cutoff values for fasting glucose and random glucose. The ADA defines fasting as no caloric intake for at least 8 hours. Fasting plasma glucose results between 100 to 125 mg/dL indicate increased risk for diabetes (prediabetes).Fasting plasma glucose results greater than or equal to 126 mg/dL meet the criteria for diagnosis of diabetes. In the absence of unequivocal hyperglycemia, results should be confirmed by repeat testing. In a patient with classic symptoms of hyperglycemia or hyperglycemic crisis, random plasma glucose results greater than or equal to 200 mg/dL meet the criteria for diagnosis of diabetes.Reference: Standards of Medical Care in Diabetes 2016, [place] [employer]. Diabetes Care. 2016.39(Suppl 1). Performed By: #### 2 4323-8 ####[facility]CL[facility] [id number] [place] [address] [place] Potassium [Moles/Vol] 3.9 mmol/L Normal 3.7-5.1 [facility] Comment on above: Order Comment: Maury gama Type: BLOOD SPECIMENOrdering Facility: [facility] Address: [address] [id number] Performed By: #### 2 4323-8 ####[facility]CL[facility] [id number] [place] [address] [place] Protein [Mass/Vol] 6.9 g/dL Normal 6.3-8.0 [facility] Comment on above: Order Comment: Speci men Type: BLOOD SPECIMENOrdering Facility: [facility] Address: [address] [place] [address] Performed By: #### 2 4323-8 ####[facility] [id number] [place] [address] [place] Sodium [Moles/Vol] 137 mmol/L Normal 136-144 [facility] Comment on above: Order Comment: Speci men Type: BLOOD SPECIMENOrdering Facility: [facility] Address: [address] [place] [address] Performed By: #### 2 4323-8 ####[facility] [id number] [place] [address] [place] Urea nitrogen [Mass/Vol] 22 mg/dL Normal 9-24 [facility] Comment on above: Order Comment: Speci men Type: BLOOD SPECIMENOrdering Facility: [facility] Address: [address] [place] [address] Performed By: #### 2 4323-8 ####[facility] [id number] [place] [address] [place] TSH SerPl-aCncon 03-21-2025 TSH Qn 2.570 m[IU]/L Normal 0.270-4.200 [facility] Comment on above: Order Comment: Speci men Type: BLOOD SPECIMENOrdering Facility: [facility] Address: [address] [place] [address] Performed By: #### 3 016-3 ####[facility] LABCLIA [id number] [place] [address] [place] CBC W Auto Differential pane l (Bld)on 03-19-2025 Basophils (Bld) [#/Vol] 0.02 10*3/uL Normal <0.11 [facility] Comment on above: Order Comment: Speci men Type: BLOOD SPECIMENOrdering Facility: [facility] Address: [address] [place] [address] Performed By: #### 5 7021-8 ####[facility] MILLTOWNCLIA [id number] [address] LABORATORYCLIA [id number] [place] [address] [place] Basophils/100 WBC (Bld) 1.0 % Normal [facility] Comment on above: Order Comment: Speci men Type: BLOOD SPECIMENOrdering Facility: [facility] Address: [address] [place] [address] Performed By: #### 5 7021-8 ####[facility]CL[facility] [id number] [address] LABORATORYCLIA [id number] [place] [address] [place] Differential cell count method Nom (Bld) Manual Normal [facility] Comment on above: Order Comment: Speci men Type: BLOOD SPECIMENOrdering Facility: [facility] Address: [address] [place] [address] Performed By: #### 5 7021-8 ####[facility] MICKIWNCLIA [id number] [address] LABORATORYCLIA [id number] [place] [address] [place] Eosinophils (Bld) [#/Vol] 0.06 10*3/uL Normal <0.46 [facility] Comment on above: Order Comment: Speci men Type: BLOOD SPECIMENOrdering Facility: [facility] Address: [address] [place] [address] Performed By: #### 5 7021-8 ####[facility] MILLWNCLIA [id number] [address] LABORATORYCLIA [id number] [place] [address] [place] Eosinophils/100 WBC (Bld) 3.0 % Normal [facility] Comment on above: Order Comment: Speci men Type: BLOOD SPECIMENOrdering Facility: [facility] Address: [address] [place] [address] Performed By: #### 5 7021-8 ####[facility] PINE RIDGEWSDLIA [id number] [address] LABORATORYIA [id number] [place] [address] [place] Erythrocyte distribution width (RBC) [Ratio] 15.9 % High 11.5-15.0 [facility] Comment on above: Order Comment: Speci men Type: BLOOD SPECIMENOrdering Facility: [facility] Address: [address] [place] [address] Performed By: #### 5 7021-8 ####[facility] P[facility] RIDGEWSDLIA [id number] [address] LABORATORYCLIA [id number] [place] [address] [place] Hematocrit (Bld) [Volume fraction] 23.2 % Low 39.0-51.0 [facility] Comment on above: Order Comment: Speci men Type: BLOOD SPECIMENOrdering Facility: [facility] Address: [address] [place] [address] Performed By: #### 5 7021-8 ####[facility] [id number] [address] LABORATORYCLIA [id number] [place] [address] [place] Hemoglobin (Bld) [Mass/Vol] 7.8 g/dL Low 13.0-17.0 [facility] Comment on above: Order Comment: Speci men Type: BLOOD SPECIMENOrdering Facility: [facility] Address: [address] [place] [address] Performed By: #### 5 7021-8 ####[facility] ALEXISWNCLIA [id number] [address] LABORATORYCLIA [id number] [place] [address] [place] Lymphocytes (Bld) [#/Vol] 0.32 10*3/uL Low 1.00-4.00 [facility] Comment on above: Order Comment: Speci men Type: BLOOD SPECIMENOrdering Facility: [facility] Address: [address] [place] [address] Performed By: #### 5 7021-8 ####[facility] PARKWAYA [id number] [address] LABORATORYCLIA [id number] [address] [place] Lymphocytes/100 WBC (Bld) 17.0 % Normal [facility] Comment on above: Order Comment: Speci men Type: BLOOD SPECIMENOrdering Facility: [facility] Address: [address] [place] [address] Performed By: #### 5 7021-8 ####[facility] [id number] [address] LABORATORYCLIA [id number] [place] [address] [place] MCH (RBC) [Entitic mass] 33.1 pg Normal 26.0-34.0 [facility] Comment on above: Order Comment: Speci men Type: BLOOD SPECIMENOrdering Facility: [facility] Address: [address] [place] [address] Performed By: #### 5 7021-8 ####[facility]CL[facility] [id number] [address] LABORATORYCLIA [id number] [place] [address] [place] MCHC (RBC) [Mass/Vol] 33.6 g/dL Normal 30.5-36.0 [facility] Comment on above: Order Comment: Speci men Type: BLOOD SPECIMENOrdering Facility: [facility] Address: [address] [place] [address] Performed By: #### 5 7021-8 ####[facility] RIDGEWNCLIA [id number] [address] LABORATORYCLIA [id number] [place] [address] [place] MCV (RBC) [Entitic vol] 98.3 fL Normal 80.0-100.0 [facility] Comment on above: Order Comment: Speci men Type: BLOOD SPECIMENOrdering Facility: [facility] Address: [address] [place] [address] Performed By: #### 5 7021-8 ####[facility] P[facility] RIDGEWNCLIA [id number] [address] LABORATORYCLIA [id number] [place] [address] [place] Monocytes (Bld) [#/Vol] 0.50 10*3/uL Normal <0.87 [facility] Comment on above: Order Comment: Speci men Type: BLOOD SPECIMENOrdering Facility: [facility] Address: [address] [place] [address] Performed By: #### 5 7021-8 ####[facility] MILLTOWNCLIA [id number] [address] LABORATORYCLIA [id number] [place] [address] [place] Monocytes/100 WBC (Bld) 27.0 % Normal [facility] Comment on above: Order Comment: Speci men Type: BLOOD SPECIMENOrdering Facility: [facility] Address: [address] [place] [address] Performed By: #### 5 7021-8 ####[facility] HOSPITALTOWNCLIA [id number] [address] LABORATORYCLIA [id number] [place] [address] [place] MYELO% 2.0 % Normal [facility] Comment on above: Order Comment: Speci men Type: BLOOD SPECIMENOrdering Facility: [facility] Address: [address] [place] [address] Performed By: #### 5 7021-8 ####[facility] PARKWAYA [id number] [address] LABORATORYCLIA [id number] [place] [address] [place] Neutrophils (Bld) [#/Vol] 0.94 10*3/uL Low 1.45-7.50 [facility] Comment on above: Order Comment: Speci men Type: BLOOD SPECIMENOrdering Facility: [facility] Address: [address] [place] [address] Performed By: #### 5 7021-8 ####[facility] [id number] [address] LABORATORYCLIA [id number] [place] [address] [place] Neutrophils/100 WBC (Bld) 50.0 % Normal [facility] Comment on above: Order Comment: Speci men Type: BLOOD SPECIMENOrdering Facility: [facility] Address: [address] [place] [address] Performed By: #### 5 7021-8 ####[facility] MILLTOWNCLIA [id number] [address] LABORATORYCLIA [id number] [place] [address] [place] Nucleated RBC (Bld) [#/Vol] 10*3/uL Normal <0.01 [facility] Comment on above: Order Comment: Speci men Type: BLOOD SPECIMENOrdering Facility: [facility] Address: [address] [place] [address] Performed By: #### 5 7021-8 ####[facility] RIDGEWNCLIA [id number] [address] LABORATORYCLIA [id number] [place] [address] [place] Nucleated RBC/100 WBC (Bld) [Ratio] 0.0 /100 WBC Normal [facility] Comment on above: Order Comment: Speci men Type: BLOOD SPECIMENOrdering Facility: [facility] Address: [address] [place] [address] Performed By: #### 5 7021-8 ####[facility] P[facility] RIDGEWNCLIA [id number] [address] LABORATORYCLIA [id number] [place] [address] [place] Ovalocytes LM Ql (Bld) Few Normal [facility] Comment on above: Order Comment: Speci men Type: BLOOD SPECIMENOrdering Facility: [facility] Address: [address] [place] [address] Performed By: #### 5 7021-8 ####[facility] RIDGEWNCLIA [id number] [address] LABORATORYCLIA [id number] [place] [address] [place] Platelet mean volume (Bld) [Entitic vol] 8.5 fL Low 9.0-12.7 [facility] Comment on above: Order Comment: Speci men Type: BLOOD SPECIMENOrdering Facility: [facility] Address: [address] [place] [address] Performed By: #### 5 7021-8 ####[facility] MILLTOWNCLIA [id number] [address] LABORATORYCLIA [id number] [place] [address] [place] Platelets (Bld) [#/Vol] 213 10*3/uL Normal 150-400 [facility] Comment on above: Order Comment: Speci men Type: BLOOD SPECIMENOrdering Facility: [facility] Address: [address] [place] [address] Result Comment: No c lot detected. Performed By: #### 5 7021-8 ####[facility] MILLWNCLIA [id number] [address] LABORATORYCLIA [id number] [place] [address] [place] Platelets Estimate (Bld) [#/Vol] Adequate Normal [facility] Comment on above: Order Comment: Speci men Type: BLOOD SPECIMENOrdering Facility: [facility] Address: [address] [place] [address] Performed By: #### 5 7021-8 ####[facility] RIDGEWNCLIA [id number] [address] LABORATORYCLIA [id number] [address] OF [facility] Polychromasia LM Ql (Bld) Slight Normal [facility] Comment on above: Order Comment: Speci men Type: BLOOD SPECIMENOrdering Facility: [facility] Address: [address] [place] [address] Performed By: #### 5 7021-8 ####[facility] MILLTOWNCLIA [id number] [address] LABORATORYCLIA [id number] [place] [address] [place] RBC (Bld) [#/Vol] 2.36 10*6/uL Low 4.20-6.00 [facility] Comment on above: Order Comment: Speci men Type: BLOOD SPECIMENOrdering Facility: [facility] Address: [address] [place] [address] Performed By: #### 5 7021-8 ####[facility]IDGEWNCLIA [id number] [address] LABORATORYCLIA [id number] [place] [address] [place] RED CELL MORPH Reviewed: see result s of individual morphologies Normal [facility] Comment on above: Order Comment: Speci men Type: BLOOD SPECIMENOrdering Facility: [facility] Address: [address] [place] [address] Performed By: #### 5 7021-8 ####[facility] RIDGEWNCLIA [id number] [address] LABORATORYCLIA [id number] [place] [address] [place] WBC (Bld) [#/Vol] 1.87 10*3/uL Low 3.70-11.00 [facility] Comment on above: Order Comment: Speci men Type: BLOOD SPECIMENOrdering Facility: [facility] Address: [address] [place] [address] Performed By: #### 5 7021-8 ####[facility] MILLTOWNCLIA [id number] [address] LABORATORYCLIA [id number] [address] [place] WBC Left Shift Ql (Bld) Present Normal [facility] Comment on above: Order Comment: Speci men Type: BLOOD SPECIMENOrdering Facility: [facility] Address: [address] [place] [address] Performed By: #### 5 7021-8 ####[facility] MILLWNCLIA [id number] [address] LABORATORYCLIA [id number] [place] [address] [place] Comprehensive metabolic 2000 panelon 03-19-2025 Albumin [Mass/Vol] 3.5 g/dL Low 3.9-4.9 [facility] Comment on above: Order Comment: Speci men Type: BLOOD SPECIMENOrdering Facility: [facility] Address: [address] [place] [address] Performed By: #### 2 4323-8 ####[facility]VILLENCLIA [id number] [place] [address] [place] ALP [Catalytic activity/Vol] 194 U/L High 38-113 [facility] Comment on above: Order Comment: Speci men Type: BLOOD SPECIMENOrdering Facility: [facility] Address: [address] [place] [address] Performed By: #### 2 4323-8 ####[facility] MILLTOWNCLIA [id number] [place] [address] [place] ALT [Catalytic activity/Vol] 16 U/L Normal 10-54 [facility] Comment on above: Order Comment: Speci men Type: BLOOD SPECIMENOrdering Facility: [facility] Address: [address] [place] [address] Performed By: #### 2 4323-8 ####[facility]SONVILLENCLIA [id number] [place] [id number] [place] Anion gap [Moles/Vol] 12 mmol/L Normal 8-15 [facility] Comment on above: Order Comment: Speci men Type: BLOOD SPECIMENOrdering Facility: [facility] Address: [address] [place] [address] Performed By: #### 2 4323-8 ####[facility] RIDGEWNCLIA [id number] [place] [address] [place] AST [Catalytic activity/Vol] 28 U/L Normal 14-40 [facility] Comment on above: Order Comment: Speci men Type: BLOOD SPECIMENOrdering Facility: [facility] Address: [address] [place] [address] Performed By: #### 2 4323-8 ####[facility]VILLENCLIA [id number] [place] [address] [place] Bilirubin [Mass/Vol] 0.2 mg/dL Normal 0.2-1.3 [facility] Comment on above: Order Comment: Speci men Type: BLOOD SPECIMENOrdering Facility: [facility] Address: [address] [place] [address] Performed By: #### 2 4323-8 ####[facility]VILLENCLIA [id number] [place] [address] [place] Calcium [Mass/Vol] 8.9 mg/dL Normal 8.5-10.2 [facility] Comment on above: Order Comment: Speci men Type: BLOOD SPECIMENOrdering Facility: [facility] Address: [address] [place] [address] Performed By: #### 2 4323-8 ####[facility]VILLENCLIA [id number] [place] [address] [place] Chloride [Moles/Vol] 102 mmol/L Normal 98-107 [facility] Comment on above: Order Comment: Speci men Type: BLOOD SPECIMENOrdering Facility: [facility] Address: [address] [place] [address] Performed By: #### 2 4323-8 ####[facility]ENCJ[facility] [id number] [place] [address] [place] CO2 [Moles/Vol] 24 mmol/L Normal 22-30 [facility] Comment on above: Order Comment: Speci men Type: BLOOD SPECIMENOrdering Facility: [facility] Address: [address] [place] [address] Performed By: #### 2 4323-8 ####[facility]ILLENCJORD[facility] [id number] [place] [address] [place] Creatinine [Mass/Vol] 0.81 mg/dL Normal 0.73-1.22 [facility] Comment on above: Order Comment: Speci men Type: BLOOD SPECIMENOrdering Facility: [facility] Address: [address] [place] [address] Performed By: #### 2 4323-8 ####[facility] PARKWAYA [id number] [address] OF [place] Creatinine and Glomerular filtration rate.predicted panel (S/P/Bld) 91 mL/min/1.73m??? Normal >=60 [facility] Comment on above: Order Comment: Speci men Type: BLOOD SPECIMENOrdering Facility: [facility] Address: [address] [place] [address] Result Comment: Lulu mated Glomerular Filtration Rate (eGFR) is calculated using the 2020 CKD-EPI creatinine equation. This equation utilizes serum creatinine, sex, and age as parameters. The creatinine assay has traceable calibration to isotope dilution-mass spectrometry. Refer to KDIGO guidelines for clinical interpretation. In patients with unstable renal function, e.g. those with acute kidney injury, the eGFR may not accurately reflect actual GFR. Performed By: #### 2 4323-8 ####[facility] RIDGEWNCLI [id number] [place] [address] [place] Glucose [Mass/Vol] 173 mg/dL High 74-99 [facility] Comment on above: Order Comment: Speci men Type: BLOOD SPECIMENOrdering Facility: [facility] Address: [address] [place], [place] [address] Result Comment: The [place] Diabetes Association (ADA) provides guidance for cutoff values for fasting glucose and random glucose. The ADA defines fasting as no caloric intake for at least 8 hours. Fasting plasma glucose results between 100 to 125 mg/dL indicate increased risk for diabetes (prediabetes).Fasting plasma glucose results greater than or equal to 126 mg/dL meet the criteria for diagnosis of diabetes. In the absence of unequivocal hyperglycemia, results should be confirmed by repeat testing. In a patient with classic symptoms of hyperglycemia or hyperglycemic crisis, random plasma glucose results greater than or equal to 200 mg/dL meet the criteria for diagnosis of diabetes.Reference: Standards of Medical Care in Diabetes 2016, [place] [employer]. Diabetes Care. 2016.39(Suppl 1). Performed By: #### 2 4323-8 ####[facility] HOS[facility]ITALTOWHAIMLIA [id number] [place] [address] [place] Potassium [Moles/Vol] 4.1 mmol/L Normal 3.7-5.1 [facility] Comment on above: Order Comment: Speci men Type: BLOOD SPECIMENOrdering Facility: [facility] Address: [address] [place], [place] [address] Performed By: #### 2 4323-8 ####[facility] RIDGEWNCLIA [id number] [place] [address] [place] Protein [Mass/Vol] 6.3 g/dL Normal 6.3-8.0 [facility] Comment on above: Order Comment: Speci men Type: BLOOD SPECIMENOrdering Facility: [facility] Address: [address] [place], [place] [address] Performed By: #### 2 4323-8 ####[facility]SONVILLEHAIMLIA [id number] [place] [address] [place] Sodium [Moles/Vol] 138 mmol/L Normal 136-144 [facility] Comment on above: Order Comment: Speci men Type: BLOOD SPECIMENOrdering Facility: [facility] Address: [address] [place] [address] Performed By: #### 2 4323-8 ####[facility] [id number] [place] [address] [place] Urea nitrogen [Mass/Vol] 25 mg/dL High 9-24 [facility] Comment on above: Order Comment: Speci men Type: BLOOD SPECIMENOrdering Facility: [facility] Address: [address] [place] [address] Performed By: #### 2 4323-8 ####[facility] [id number] [place] [address] [place] TSH SerPl-aCncon 03-19-2025 TSH Qn 3.380 m[IU]/L Normal 0.270-4.200 [facility] Comment on above: Order Comment: Speci men Type: BLOOD SPECIMENOrdering Facility: [facility] Address: [address] [place] [address] Performed By: #### 3 016-3 ####[facility] LABCLIA [id number] [place] [address] [place] CBC W Auto Differential pane l (Bld)on 03-14-2025 Basophils (Bld) [#/Vol] 0.00 10*3/uL Normal <0.11 [facility] Comment on above: Order Comment: Speci men Type: BLOOD SPECIMENOrdering Facility: [facility] Address: [address] [place] [address] Performed By: #### 5 7021-8 ####[facility]ITALLIA [id number] [address] STATES OF [facility] LABORATORYCLIA [id number] [place] [address] [place] Basophils/100 WBC (Bld) 0.0 % Normal [facility] Comment on above: Order Comment: Speci men Type: BLOOD SPECIMENOrdering Facility: [facility] Address: [address] [place] [address] Performed By: #### 5 7021-8 ####[facility] MILLWNCLIA [id number] [address] LABORATORYCLIA [id number] [place] [address] [place] Differential cell count method Nom (Bld) Manual Normal [facility] Comment on above: Order Comment: Speci men Type: BLOOD SPECIMENOrdering Facility: [facility] Address: [address] [place] [address] Performed By: #### 5 7021-8 ####[facility] RIDGEWNCLIA [id number] [address] LABORATORYCLIA [id number] [place] [address] [place] Eosinophils (Bld) [#/Vol] 0.04 10*3/uL Normal <0.46 [facility] Comment on above: Order Comment: Speci men Type: BLOOD SPECIMENOrdering Facility: [facility] Address: [address] [place] [address] Performed By: #### 5 7021-8 ####[facility] RIDGEWNCLIA [id number] [address] LABORATORYCLIA [id number] [place] [address] [place] Eosinophils/100 WBC (Bld) 2.0 % Normal [facility] Comment on above: Order Comment: Speci men Type: BLOOD SPECIMENOrdering Facility: [facility] Address: [address] [place] [address] Performed By: #### 5 7021-8 ####[facility] MILLTOWNCLIA [id number] [address] LABORATORYCLIA [id number] [place] [address] [place] Erythrocyte distribution width (RBC) [Ratio] 13.8 % Normal 11.5-15.0 [facility] Comment on above: Order Comment: Speci men Type: BLOOD SPECIMENOrdering Facility: [facility] Address: [facility] [place] [address] Performed By: #### 5 7021-8 ####[facility]ITALARELISWNCLIA [id number] [address] LABORATORYIA [id number] [place] [address] [place] Hematocrit (Bld) [Volume fraction] 23.8 % Low 39.0-51.0 [facility] Comment on above: Order Comment: Speci men Type: BLOOD SPECIMENOrdering Facility: [facility] Address: [facility] [place] [address] Performed By: #### 5 7021-8 ####[facility] HOSPITALTOWNCLIA [id number] [address] LABORATORYIA [id number] [address] STATES [place] Hemoglobin (Bld) [Mass/Vol] 8.2 g/dL Low 13.0-17.0 [facility] Comment on above: Order Comment: Speci men Type: BLOOD SPECIMENOrdering Facility: [facility] Address: [facility] [place] [address] Performed By: #### 5 7021-8 ####[facility] MILLTOWNCLIA [id number] [address] [facility] LABORATORYCLIA [id number] [place] [address] [place] Lymphocytes (Bld) [#/Vol] 0.54 10*3/uL Low 1.00-4.00 [facility] Comment on above: Order Comment: Speci men Type: BLOOD SPECIMENOrdering Facility: [facility] Address: [address] [place] [address] Performed By: #### 5 7021-8 ####[facility] MILLTOWNCLIA [id number] [address] LABORATORYCLIA [id number] [place] [address] [place] Lymphocytes/100 WBC (Bld) 27.0 % Normal [facility] Comment on above: Order Comment: Speci men Type: BLOOD SPECIMENOrdering Facility: [facility] Address: [address] [place] [address] Performed By: #### 5 7021-8 ####[facility]ITALTOWNCLIA [id number] [address] LABORATORYIA [id number] [place] [address] [place] [facility] MCH (RBC) [Entitic mass] 32.9 pg Normal 26.0-34.0 [facility] Comment on above: Order Comment: Speci men Type: BLOOD SPECIMENOrdering Facility: [facility] Address: [address] [place] [address] Performed By: #### 5 7021-8 ####[facility] MILLTOWNCLIA [id number] [address] LABORATORYCLIA [id number] [place] [address] [place] [facility] MCHC (RBC) [Mass/Vol] 34.5 g/dL Normal 30.5-36.0 [facility] Comment on above: Order Comment: Speci men Type: BLOOD SPECIMENOrdering Facility: [facility] Address: [address] [place] [address] Performed By: #### 5 7021-8 ####[facility] MY[facility] MILLTOWNCLIA [id number] [address] LABORATORYCLIA [id number] [place] [address] [place] MCV (RBC) [Entitic vol] 95.6 fL Normal 80.0-100.0 [facility] Comment on above: Order Comment: Speci men Type: BLOOD SPECIMENOrdering Facility: [facility] Address: [address] [place] [address] Performed By: #### 5 7021-8 ####[facility] MILLTOWNCLIA [id number] [address] LABORATORYCLIA [id number] [place] [address] [place] Monocytes (Bld) [#/Vol] 0.10 10*3/uL Normal <0.87 [facility] Comment on above: Order Comment: Speci men Type: BLOOD SPECIMENOrdering Facility: [facility] Address: [address] [place] [address] Performed By: #### 5 7021-8 ####[facility] MY[facility] MILLTOWNCLIA [id number] [address] LABORATORYCLIA [id number] [place] [address] [place] Monocytes/100 WBC (Bld) 5.0 % Normal [facility] Comment on above: Order Comment: Speci men Type: BLOOD SPECIMENOrdering Facility: [facility] Address: [address] [place] [address] Performed By: #### 5 7021-8 ####[facility] MY[facility] MILLTOWNCLIA [id number] [address] LABORATORYCLIA [id number] [place] [address] [place] Neutrophils (Bld) [#/Vol] 1.31 10*3/uL Low 1.45-7.50 [facility] Comment on above: Order Comment: Speci men Type: BLOOD SPECIMENOrdering Facility: [facility] Address: [address] [place] [address] Performed By: #### 5 7021-8 ####[facility] [id number] [address] LABORATORYCLIA [id number] [place] [address] [place] Neutrophils/100 WBC (Bld) 66.0 % Normal [facility] Comment on above: Order Comment: Speci men Type: BLOOD SPECIMENOrdering Facility: [facility] Address: [address] [place] [address] Performed By: #### 5 7021-8 ####[facility] [id number] [address] LABORATORYCLIA [id number] [place] [address] [place] Nucleated RBC (Bld) [#/Vol] 10*3/uL Normal <0.01 [facility] Comment on above: Order Comment: Speci men Type: BLOOD SPECIMENOrdering Facility: [facility] Address: [address] [place] [address] Performed By: #### 5 7021-8 ####[facility] RIDGEWNCLIA [id number] [address] LABORATORYCLIA [id number] [place] [address] [place] Nucleated RBC/100 WBC (Bld) [Ratio] 0.0 /100 WBC Normal [facility] Comment on above: Order Comment: Speci men Type: BLOOD SPECIMENOrdering Facility: [facility] Address: [address] [place] [address] Performed By: #### 5 7021-8 ####[facility] RIDGEWNCLIA [id number] [address] LABORATORYCLIA [id number] [place] [address] [place] Ovalocytes LM Ql (Bld) Few Normal [facility] Comment on above: Order Comment: Speci men Type: BLOOD SPECIMENOrdering Facility: [facility] Address: [address] [place] [address] Performed By: #### 5 7021-8 ####[facility] [id number] [address] LABORATORYCLIA [id number] [place] [address] [place] Platelet mean volume (Bld) [Entitic vol] 10.0 fL Normal 9.0-12.7 [facility] Comment on above: Order Comment: Speci men Type: BLOOD SPECIMENOrdering Facility: [facility] Address: [address] [place] [address] Performed By: #### 5 7021-8 ####[facility]A [id number] [address] LABORATORYCLIA [id number] [place] [address] [place] Platelets (Bld) [#/Vol] 34 10*3/uL Low 150-400 [facility] Comment on above: Order Comment: Speci men Type: BLOOD SPECIMENOrdering Facility: [facility] Address: [address] [place] [address] Result Comment: No c lot detected. Performed By: #### 5 7021-8 ####[facility] MILLTOWNCLIA [id number] [address] LABORATORYCLIA [id number] [place] [address] [place] Platelets Estimate (Bld) [#/Vol] Decreased Normal [facility] Comment on above: Order Comment: Speci men Type: BLOOD SPECIMENOrdering Facility: [facility] Address: [address] [place] [address] Performed By: #### 5 7021-8 ####[facility] RIDGENIHARIKALIA [id number] [address] LABORATORYCLIA [id number] [place] [address] [place] Polychromasia LM Ql (Bld) Slight Normal [facility] Comment on above: Order Comment: Speci men Type: BLOOD SPECIMENOrdering Facility: [facility] Address: [address] [place] [address] Performed By: #### 5 7021-8 ####[facility] RIDGEWNCLIA [id number] [address] LABORATORYCLIA [id number] [place] [address] [place] RBC (Bld) [#/Vol] 2.49 10*6/uL Low 4.20-6.00 [facility] Comment on above: Order Comment: Speci men Type: BLOOD SPECIMENOrdering Facility: [facility] Address: [address] [place] [address] Performed By: #### 5 7021-8 ####[facility] MILLTOWNCLIA [id number] [address] LABORATORYCLIA [id number] [place] [address] [place] [facility] RED CELL MORPH Reviewed: see result s of individual morphologies Normal [facility] Comment on above: Order Comment: Speci men Type: BLOOD SPECIMENOrdering Facility: [facility] Address: [address] [place] [address] Performed By: #### 5 7021-8 ####[facility] [id number] [address] LABORATORYCLIA [id number] [place] [address] [place] WBC (Bld) [#/Vol] 1.99 10*3/uL Low 3.70-11.00 [facility] Comment on above: Order Comment: Speci men Type: BLOOD SPECIMENOrdering Facility: [facility] Address: [address] [place] [address] Performed By: #### 5 7021-8 ####[facility] [id number] [address] LABORATORYCLIA [id number] [place] [address] [place] CNPNon 03-14-2025 CNPN Normal [facility] Comprehensive metabolic 2000 panelon 03-14-2025 Albumin [Mass/Vol] 3.8 g/dL Low 3.9-4.9 [facility] Comment on above: Order Comment: Speci men Type: BLOOD SPECIMENOrdering Facility: [facility] Address: [address] [place] [address] Performed By: #### 2 4323-8 ####[facility] [id number] [place] [address] [place] ALP [Catalytic activity/Vol] 204 U/L High 38-113 [facility] Comment on above: Order Comment: Speci men Type: BLOOD SPECIMENOrdering Facility: [facility] Address: [address] [place] [address] Performed By: #### 2 4323-8 ####[facility] MILLTOWNCLIA [id number] [place] [address] [place] ALT [Catalytic activity/Vol] 20 U/L Normal 10-54 [facility] Comment on above: Order Comment: Speci men Type: BLOOD SPECIMENOrdering Facility: [facility] Address: [address] [place] [address] Performed By: #### 2 4323-8 ####[facility] RIDGEWNCLIA [id number] [place] [address] [place] Anion gap [Moles/Vol] 14 mmol/L Normal 8-15 [facility] Comment on above: Order Comment: Speci men Type: BLOOD SPECIMENOrdering Facility: [facility] Address: [address] [place] [address] Performed By: #### 2 4323-8 ####[facility]CL[facility] [id number] [place] [address] [place] AST [Catalytic activity/Vol] 35 U/L Normal 14-40 [facility] Comment on above: Order Comment: Speci men Type: BLOOD SPECIMENOrdering Facility: [facility] Address: [address] [place] [address] Performed By: #### 2 4323-8 ####[facility] P[facility] RIDGEWNCLIA [id number] [place] [address] [place] Bilirubin [Mass/Vol] 0.4 mg/dL Normal 0.2-1.3 [facility] Comment on above: Order Comment: Speci men Type: BLOOD SPECIMENOrdering Facility: [facility] Address: [address] [place] [address] Performed By: #### 2 4323-8 ####[facility]VILLENCLIA [id number] [place] [address] [place] Calcium [Mass/Vol] 8.6 mg/dL Normal 8.5-10.2 [facility] Comment on above: Order Comment: Speci men Type: BLOOD SPECIMENOrdering Facility: [facility] Address: [address] [place] [address] Performed By: #### 2 4323-8 ####[facility] MILLTOWNCLIA [id number] [place] [address] [place] Chloride [Moles/Vol] 101 mmol/L Normal 98-107 [facility] Comment on above: Order Comment: Speci men Type: BLOOD SPECIMENOrdering Facility: [facility] Address: [address] [place] [address] Performed By: #### 2 4323-8 ####[facility]ILLENCLIA [id number] [place] [address] [place] CO2 [Moles/Vol] 24 mmol/L Normal 22-30 [facility] Comment on above: Order Comment: Speci men Type: BLOOD SPECIMENOrdering Facility: [facility] Address: [address] [place] [address] Performed By: #### 2 4323-8 ####[facility] [id number] [place] [address] [place] Creatinine [Mass/Vol] 0.84 mg/dL Normal 0.73-1.22 [facility] Comment on above: Order Comment: Speci men Type: BLOOD SPECIMENOrdering Facility: [facility] Address: [address] [place] [address] Performed By: #### 2 4323-8 ####[facility] [id number] [place] [address] [place] Creatinine and Glomerular filtration rate.predicted panel (S/P/Bld) 90 mL/min/1.73m??? Normal >=60 [facility] Comment on above: Order Comment: Speci men Type: BLOOD SPECIMENOrdering Facility: [facility] Address: [address] [place] [address] Result Comment: Lulu mated Glomerular Filtration Rate (eGFR) is calculated using the 2020 CKD-EPI creatinine equation. This equation utilizes serum creatinine, sex, and age as parameters. The creatinine assay has traceable calibration to isotope dilution-mass spectrometry. Refer to KDIGO guidelines for clinical interpretation. In patients with unstable renal function, e.g. those with acute kidney injury, the eGFR may not accurately reflect actual GFR. Performed By: #### 2 4323-8 ####[facility] [id number] [place] [address] [place] Glucose [Mass/Vol] 165 mg/dL High 74-99 [facility] Comment on above: Order Comment: Maury gama Type: BLOOD SPECIMENOrdering Facility: [facility] Address: [address] [place] [address] Result Comment: The [place] Diabetes [employer] (ADA) provides guidance for cutoff values for fasting glucose and random glucose. The ADA defines fasting as no caloric intake for at least 8 hours. Fasting plasma glucose results between 100 to 125 mg/dL indicate increased risk for diabetes (prediabetes).Fasting plasma glucose results greater than or equal to 126 mg/dL meet the criteria for diagnosis of diabetes. In the absence of unequivocal hyperglycemia, results should be confirmed by repeat testing. In a patient with classic symptoms of hyperglycemia or hyperglycemic crisis, random plasma glucose results greater than or equal to 200 mg/dL meet the criteria for diagnosis of diabetes.Reference: Standards of Medical Care in Diabetes 2016, [place] [employer]. Diabetes Care. 2016.39(Suppl 1). Performed By: #### 2 4323-8 ####[facility] [id number] [place] [address] [place] Potassium [Moles/Vol] 4.0 mmol/L Normal 3.7-5.1 [facility] Comment on above: Order Comment: Maury gama Type: BLOOD SPECIMENOrdering Facility: [facility] Address: [address] [place] [address] Performed By: #### 2 4323-8 ####[facility] MYA MILLTOWNCLIA [id number] [place] [address] [place] Protein [Mass/Vol] 6.8 g/dL Normal 6.3-8.0 [facility] Comment on above: Order Comment: Speci men Type: BLOOD SPECIMENOrdering Facility: [facility] Address: [address] [place] [address] Performed By: #### 2 4323-8 ####[facility]ILLENCL[facility] [id number] [place] [address] [place] Sodium [Moles/Vol] 139 mmol/L Normal 136-144 [facility] Comment on above: Order Comment: Speci men Type: BLOOD SPECIMENOrdering Facility: [facility] Address: [address] [place] [address] Performed By: #### 2 4323-8 ####[facility] MILLWNCLIA [id number] [place] [address] [place] Urea nitrogen [Mass/Vol] 24 mg/dL Normal 9-24 [facility] Comment on above: Order Comment: Speci men Type: BLOOD SPECIMENOrdering Facility: [facility] Address: [address] [place] [address] Performed By: #### 2 4323-8 ####[facility]ILLENCLIA [id number] [place] [address] [place] Cortis SerPl-mCncon 03-14-20 25 Cortisol [Mass/Vol] 12.5 ug/dL Normal 4.8-19.5 [facility] Comment on above: Order Comment: Speci men Type: BLOOD SPECIMENOrdering Facility: [facility] Address: [address] [place], [place] [address] Result Comment: Prov ided reference range is from 6-10 AM sample collection time.Cortisol Reference Range: 6-10 AM = 4.8-19.5 ug/dL, 4-8 PM = 2.5-11.9 ug/dL Performed By: #### 3 024-7, 3015-3, 6 ####[facility] LABIA [id number] [place] [id number] [place] T4 Free SerPl-mCncon 025 Free T4 [Mass/Vol] 1.1 ng/dL Normal 0.9-1.7 [facility] Comment on above: Order Comment: Speci men Type: BLOOD SPECIMENOrdering Facility: [facility] Address: [address] [place] [address] Performed By: #### 3 024-7, 3015-3, 2143-03 ####[facility] LABIA [id number] [place] [address] [place] TSH SerPl-aCncon 03-14-2025 TSH Qn 7.780 m[IU]/L High 0.270-4.200 [facility] Comment on above: Order Comment: Speci men Type: BLOOD SPECIMENOrdering Facility: [facility] Address: [address] [place] [address] Performed By: #### 3 024-7, 3, 2143-03 ####[facility] [id number] [place] [address] [place] ABD/PEL W IVCONon 025 CT ABD/PEL W IVCON Normal [facility] CT CHEST W IVCONon 5 CT CHEST W IVCON Normal [facility] CNPNon 03-08-2025 CNPN Normal [facility] CBC W Auto Differential pane l (Bld)on 03-05-2025 Basophils (Bld) [#/Vol] 10*3/uL Normal <0.11 [facility] Comment on above: Order Comment: Speci men Type: BLOOD SPECIMENOrdering Facility: [facility] Address: [address] [place] [address] Performed By: #### 5 7021-8 ####[facility] MILLWNCLIA [id number] [place] [address] [place] Basophils/100 WBC (Bld) 0.8 % Normal [facility] Comment on above: Order Comment: Speci men Type: BLOOD SPECIMENOrdering Facility: [facility] Address: [address] [place] [address] Performed By: #### 5 7021-8 ####[facility] MICKIFRANKLINHAIMLIA [id number] [place] [address] [place] Differential cell count method Nom (Bld) Auto Normal [facility] Comment on above: Order Comment: Speci men Type: BLOOD SPECIMENOrdering Facility: [facility] Address: [address] [place] [address] Performed By: #### 5 7021-8 ####[facility]WAYA [id number] [place] [address] [place] Eosinophils (Bld) [#/Vol] 10*3/uL Normal <0.46 [facility] Comment on above: Order Comment: Speci men Type: BLOOD SPECIMENOrdering Facility: [facility] Address: [address] [place] [address] Performed By: #### 5 7021-8 ####[facility]SONVILLEHAIMLIA [id number] [place] [address] [place] Eosinophils/100 WBC (Bld) 0.8 % Normal [facility] Comment on above: Order Comment: Speci men Type: BLOOD SPECIMENOrdering Facility: [facility] Address: [address] [place] [address] Performed By: #### 5 7021-8 ####[facility] [id number] [place] [address] [place] Erythrocyte distribution width (RBC) [Ratio] 13.8 % Normal 11.5-15.0 [facility] Comment on above: Order Comment: Speci men Type: BLOOD SPECIMENOrdering Facility: [facility] Address: [address] [place] [address] Performed By: #### 5 7021-8 ####[facility] [id number] [place] [address] [place] Hematocrit (Bld) [Volume fraction] 27.5 % Low 39.0-51.0 [facility] Comment on above: Order Comment: Speci men Type: BLOOD SPECIMENOrdering Facility: [facility] Address: [address] [place] [address] Performed By: #### 5 7021-8 ####[facility] [id number] [place] [address] [place] Hemoglobin (Bld) [Mass/Vol] 9.2 g/dL Low 13.0-17.0 [facility] Comment on above: Order Comment: Speci men Type: BLOOD SPECIMENOrdering Facility: [facility] Address: [address] [place] [address] Performed By: #### 5 7021-8 ####[facility]ILLENCL[facility] [id number] [place] [address] [place] Immature granulocytes (Bld) [#/Vol] 10*3/uL Normal <0.10 [facility] Comment on above: Order Comment: Speci men Type: BLOOD SPECIMENOrdering Facility: [facility] Address: [address] [place] [address] Performed By: #### 5 7021-8 ####[facility]A [id number] [place] [address] [place] Immature granulocytes/100 WBC (Bld) 0.8 % Normal [facility] Comment on above: Order Comment: Speci men Type: BLOOD SPECIMENOrdering Facility: [facility] Address: [address] [place] [address] Performed By: #### 5 7021-8 ####[facility] MILLWNCLIA [id number] [place] [address] [place] Lymphocytes (Bld) [#/Vol] 0.69 10*3/uL Low 1.00-4.00 [facility] Comment on above: Order Comment: Speci men Type: BLOOD SPECIMENOrdering Facility: [facility] Address: [address] [place] [address] Performed By: #### 5 7021-8 ####[facility] RIDGEWNCLIA [id number] [place] [address] [place] Lymphocytes/100 WBC (Bld) 28.2 % Normal [facility] Comment on above: Order Comment: Speci men Type: BLOOD SPECIMENOrdering Facility: [facility] Address: [address] [place] [address] Performed By: #### 5 7021-8 ####[facility]ILLENCLIA [id number] [place] [address] [place] MCH (RBC) [Entitic mass] 32.5 pg Normal 26.0-34.0 [facility] Comment on above: Order Comment: Speci men Type: BLOOD SPECIMENOrdering Facility: [facility] Address: [address] [place] [address] Performed By: #### 5 7021-8 ####[facility] MILLFRANKLINNCLIA [id number] [place] [address] [place] MCHC (RBC) [Mass/Vol] 33.5 g/dL Normal 30.5-36.0 [facility] Comment on above: Order Comment: Speci men Type: BLOOD SPECIMENOrdering Facility: [facility] Address: [address] [place] [address] Performed By: #### 5 7021-8 ####[facility] MILLFRANKLINNCLIA [id number] [place] [address] [place] MCV (RBC) [Entitic vol] 97.2 fL Normal 80.0-100.0 [facility] Comment on above: Order Comment: Speci men Type: BLOOD SPECIMENOrdering Facility: [facility] Address: [address] [place] [address] Performed By: #### 5 7021-8 ####[facility] [id number] [place] [address] [place] Monocytes (Bld) [#/Vol] 0.29 10*3/uL Normal <0.87 [facility] Comment on above: Order Comment: Speci men Type: BLOOD SPECIMENOrdering Facility: [facility] Address: [address] [place] [address] Performed By: #### 5 7021-8 ####[facility] [id number] [place] [address] [place] Monocytes/100 WBC (Bld) 11.8 % Normal [facility] Comment on above: Order Comment: Speci men Type: BLOOD SPECIMENOrdering Facility: [facility] Address: [address] [place] [address] Performed By: #### 5 7021-8 ####[facility] [id number] [place] [address] [place] Neutrophils (Bld) [#/Vol] 1.41 10*3/uL Low 1.45-7.50 [facility] Comment on above: Order Comment: Speci men Type: BLOOD SPECIMENOrdering Facility: [facility] Address: [address] [place] [address] Performed By: #### 5 7021-8 ####[facility]ENCLI [id number] [place] [address] [place] Neutrophils/100 WBC (Bld) 57.6 % Normal [facility] Comment on above: Order Comment: Speci men Type: BLOOD SPECIMENOrdering Facility: [facility] Address: [address] [place] [address] Performed By: #### 5 7021-8 ####[facility]VILLENCCYNTHIA [id number] [place] [address] [place] Nucleated RBC (Bld) [#/Vol] 10*3/uL Normal <0.01 [facility] Comment on above: Order Comment: Speci men Type: BLOOD SPECIMENOrdering Facility: [facility] Address: [address] [place] [address] Performed By: #### 5 7021-8 ####[facility] [id number] [place] [address] [place] Nucleated RBC/100 WBC (Bld) [Ratio] 0.0 /100 WBC Normal [facility] Comment on above: Order Comment: Speci men Type: BLOOD SPECIMENOrdering Facility: [facility] Address: [address] [place] [address] Performed By: #### 5 7021-8 ####[facility] [id number] [place] [address] [place] Platelet mean volume (Bld) [Entitic vol] 8.6 fL Low 9.0-12.7 [facility] Comment on above: Order Comment: Speci men Type: BLOOD SPECIMENOrdering Facility: [facility] Address: [address] [place] [address] Performed By: #### 5 7021-8 ####[facility]ILLENCL[facility] [id number] [place] [address] [place] Platelets (Bld) [#/Vol] 286 10*3/uL Normal 150-400 [facility] Comment on above: Order Comment: Speci men Type: BLOOD SPECIMENOrdering Facility: [facility] Address: [address] [place] [address] Performed By: #### 5 7021-8 ####[facility] MICKIFRANKLINMAISHAA [id number] [place] [address] [place] RBC (Bld) [#/Vol] 2.83 10*6/uL Low 4.20-6.00 [facility] Comment on above: Order Comment: Speci men Type: BLOOD SPECIMENOrdering Facility: [facility] Address: [address] [place] [address] Performed By: #### 5 7021-8 ####[facility]VILLENCTiffani [id number] [place] [address] [place] WBC (Bld) [#/Vol] 2.45 10*3/uL Low 3.70-11.00 [facility] Comment on above: Order Comment: Speci men Type: BLOOD SPECIMENOrdering Facility: [facility] Address: [address] [place] [address] Performed By: #### 5 7021-8 ####[facility] [id number] [place] [address] [place] CNCNPATEDon 03-05-2025 CNCNPATED Normal [facility] Comprehensive metabolic 2000 panelon 03-05-2025 Albumin [Mass/Vol] 3.5 g/dL Low 3.9-4.9 [facility] Comment on above: Order Comment: Speci men Type: BLOOD SPECIMENOrdering Facility: [facility] Address: [address] [place] [address] Performed By: #### 2 4323-8 ####[facility] [id number] [place] [address] [place] ALP [Catalytic activity/Vol] 183 U/L High 38-113 [facility] Comment on above: Order Comment: Speci men Type: BLOOD SPECIMENOrdering Facility: [facility] Address: [address] [place] [address] [place] [address] Performed By: #### 2 4323-8 ####[facility] MYA MILLTOWNCLIA [id number] [place] [address] [place] ALT [Catalytic activity/Vol] 22 U/L Normal 10-54 [facility] Comment on above: Order Comment: Speci men Type: BLOOD SPECIMENOrdering Facility: [facility] Address: [address] [place] [address] Performed By: #### 2 4323-8 ####[facility] MILLWNCLIA [id number] [place] [address] [place] Anion gap [Moles/Vol] 14 mmol/L Normal 8-15 [facility] Comment on above: Order Comment: Speci men Type: BLOOD SPECIMENOrdering Facility: [facility] Address: [address] [place] [address] Performed By: #### 2 4323-8 ####[facility]CL[facility] [id number] [place] [address] [place] AST [Catalytic activity/Vol] 34 U/L Normal 14-40 [facility] Comment on above: Order Comment: Speci men Type: BLOOD SPECIMENOrdering Facility: [facility] Address: [address] [place] [address] Performed By: #### 2 4323-8 ####[facility] MILLTOWNCLIA [id number] [place] [address] [place] Bilirubin [Mass/Vol] 0.3 mg/dL Normal 0.2-1.3 [facility] Comment on above: Order Comment: Speci men Type: BLOOD SPECIMENOrdering Facility: [facility] Address: [address] [place] [address] Performed By: #### 2 4323-8 ####[facility] RIDGEWNCLIA [id number] [place] [address] [place] Calcium [Mass/Vol] 8.8 mg/dL Normal 8.5-10.2 [facility] Comment on above: Order Comment: Speci men Type: BLOOD SPECIMENOrdering Facility: [facility] Address: [address] [place] [address] Performed By: #### 2 4323-8 ####[facility] MILLTOWNCLIA [id number] [place] [address] [place] Chloride [Moles/Vol] 98 mmol/L Normal 98-107 [facility] Comment on above: Order Comment: Speci men Type: BLOOD SPECIMENOrdering Facility: [facility] Address: [address] [place] [address] Performed By: #### 2 4323-8 ####[facility]CL[facility] [id number] [place] [address] [place] CO2 [Moles/Vol] 24 mmol/L Normal 22-30 [facility] Comment on above: Order Comment: Speci men Type: BLOOD SPECIMENOrdering Facility: [facility] Address: [address] [place] [address] Performed By: #### 2 4323-8 ####[facility] [id number] [place] [address] [place] Creatinine [Mass/Vol] 0.81 mg/dL Normal 0.73-1.22 [facility] Comment on above: Order Comment: Speci men Type: BLOOD SPECIMENOrdering Facility: [facility] Address: [address] [place] [address] Performed By: #### 2 4323-8 ####[facility] MILLFRANKLINNCLIA [id number] [place] [address] [place] Creatinine and Glomerular filtration rate.predicted panel (S/P/Bld) 91 mL/min/1.73m??? Normal >=60 [facility] Comment on above: Order Comment: Maury gama Type: BLOOD SPECIMENOrdering Facility: [facility] Address: [address] [id number] Result Comment: Lulu mated Glomerular Filtration Rate (eGFR) is calculated using the 2020 CKD-EPI creatinine equation. This equation utilizes serum creatinine, sex, and age as parameters. The creatinine assay has traceable calibration to isotope dilution-mass spectrometry. Refer to KDIGO guidelines for clinical interpretation. In patients with unstable renal function, e.g. those with acute kidney injury, the eGFR may not accurately reflect actual GFR. Performed By: #### 2 4323-8 ####[facility] [id number] [place] [address] [place] Glucose [Mass/Vol] 112 mg/dL High 74-99 [facility] Comment on above: Order Comment: Maury gama Type: BLOOD SPECIMENOrdering Facility: [facility] Address: [address] [place] [address] Result Comment: The [place] [employer] (ADA) provides guidance for cutoff values for fasting glucose and random glucose. The ADA defines fasting as no caloric intake for at least 8 hours. Fasting plasma glucose results between 100 to 125 mg/dL indicate increased risk for diabetes (prediabetes).Fasting plasma glucose results greater than or equal to 126 mg/dL meet the criteria for diagnosis of diabetes. In the absence of unequivocal hyperglycemia, results should be confirmed by repeat testing. In a patient with classic symptoms of hyperglycemia or hyperglycemic crisis, random plasma glucose results greater than or equal to 200 mg/dL meet the criteria for diagnosis of diabetes.Reference: Standards of Medical Care in Diabetes 2016, [place] [employer]. Diabetes Care. 2016.39(Suppl 1). Performed By: #### 2 4323-8 ####[facility] [id number] [place] [address] [place] Potassium [Moles/Vol] 4.1 mmol/L Normal 3.7-5.1 [facility] Comment on above: Order Comment: Maury gama Type: BLOOD SPECIMENOrdering Facility: [facility] Address: [address] [id number] Performed By: #### 2 4323-8 ####[facility] MILLTOWNCLIA [id number] [place] [address] [place] Protein [Mass/Vol] 6.4 g/dL Normal 6.3-8.0 [facility] Comment on above: Order Comment: Speci men Type: BLOOD SPECIMENOrdering Facility: [facility] Address: [address] [place] [address] Performed By: #### 2 4323-8 ####[facility]CL[facility] [id number] [place] [address] [place] Sodium [Moles/Vol] 136 mmol/L Normal 136-144 [facility] Comment on above: Order Comment: Speci men Type: BLOOD SPECIMENOrdering Facility: [facility] Address: [address] [place] [address] Performed By: #### 2 4323-8 ####[facility] P[facility] RIDGEWNCLIA [id number] [place] [address] [place] Urea nitrogen [Mass/Vol] 24 mg/dL Normal 9-24 [facility] Comment on above: Order Comment: Speci men Type: BLOOD SPECIMENOrdering Facility: [facility] Address: [address] [place] [address] Performed By: #### 2 4323-8 ####[facility]ILLENCLIA [id number] [place] [address] [place] CNCNPATEDon 02-26-2025 CNCNPATED Normal [facility] CBC W Auto Differential pane l (Bld)on 02-25-2025 Basophils (Bld) [#/Vol] 10*3/uL Normal <0.11 [facility] Comment on above: Order Comment: Speci men Type: BLOOD SPECIMENOrdering Facility: [facility] Address: [address] [place] [address] Performed By: #### 5 7021-8 ####[facility] MICKIWNCLIA [id number] [place] [address] [place] Basophils/100 WBC (Bld) 0.7 % Normal [facility] Comment on above: Order Comment: Speci men Type: BLOOD SPECIMENOrdering Facility: [facility] Address: [address] [place] [address] Performed By: #### 5 7021-8 ####[facility] MICKIFRANKLINHAIMLIA [id number] [place] [address] [place] Differential cell count method Nom (Bld) Auto Normal [facility] Comment on above: Order Comment: Speci men Type: BLOOD SPECIMENOrdering Facility: [facility] Address: [address] [place] [address] Performed By: #### 5 7021-8 ####[facility]VILLEHAIMCYNTHIAA [id number] [place] [address] [place] Eosinophils (Bld) [#/Vol] 0.03 10*3/uL Normal <0.46 [facility] Comment on above: Order Comment: Speci men Type: BLOOD SPECIMENOrdering Facility: [facility] Address: [address] [place] [address] Performed By: #### 5 7021-8 ####[facility]SONVILLEHAIMLIA [id number] [place] [address] [place] Eosinophils/100 WBC (Bld) 1.1 % Normal [facility] Comment on above: Order Comment: Speci men Type: BLOOD SPECIMENOrdering Facility: [facility] Address: [address] [place] [address] Performed By: #### 5 7021-8 ####[facility]ILLENCL[facility] [id number] [place] [address] [place] Erythrocyte distribution width (RBC) [Ratio] 13.2 % Normal 11.5-15.0 [facility] Comment on above: Order Comment: Speci men Type: BLOOD SPECIMENOrdering Facility: [facility] Address: [address] [place] [address] Performed By: #### 5 7021-8 ####[facility]ENC[facility] [id number] [place] [address] [place] Hematocrit (Bld) [Volume fraction] 28.0 % Low 39.0-51.0 [facility] Comment on above: Order Comment: Speci men Type: BLOOD SPECIMENOrdering Facility: [facility] Address: [address] [place] [address] Performed By: #### 5 7021-8 ####[facility]ENCJORD[facility] [id number] [place] [address] [place] Hemoglobin (Bld) [Mass/Vol] 9.3 g/dL Low 13.0-17.0 [facility] Comment on above: Order Comment: Speci men Type: BLOOD SPECIMENOrdering Facility: [facility] Address: [address] [place] [address] Performed By: #### 5 7021-8 ####[facility]ILLENCL[facility] [id number] [place] [address] [place] Immature granulocytes (Bld) [#/Vol] 10*3/uL Normal <0.10 [facility] Comment on above: Order Comment: Speci men Type: BLOOD SPECIMENOrdering Facility: [facility] Address: [address] [place] [address] Performed By: #### 5 7021-8 ####[facility]ARKWAYA [id number] [place] [address] [place] Immature granulocytes/100 WBC (Bld) 0.7 % Normal [facility] Comment on above: Order Comment: Speci men Type: BLOOD SPECIMENOrdering Facility: [facility] Address: [address] [place] [address] Performed By: #### 5 7021-8 ####[facility] MILLWNCLIA [id number] [place] [address] [place] Lymphocytes (Bld) [#/Vol] 0.62 10*3/uL Low 1.00-4.00 [facility] Comment on above: Order Comment: Speci men Type: BLOOD SPECIMENOrdering Facility: [facility] Address: [address] [place] [address] Performed By: #### 5 7021-8 ####[facility] P[facility] RIDGEWNCLIA [id number] [place] [address] [place] Lymphocytes/100 WBC (Bld) 22.1 % Normal [facility] Comment on above: Order Comment: Speci men Type: BLOOD SPECIMENOrdering Facility: [facility] Address: [address] [place] [address] Performed By: #### 5 7021-8 ####[facility]ILLENCL[facility] [id number] [place] [address] [place] MCH (RBC) [Entitic mass] 31.8 pg Normal 26.0-34.0 [facility] Comment on above: Order Comment: Speci men Type: BLOOD SPECIMENOrdering Facility: [facility] Address: [address] [place] [address] Performed By: #### 5 7021-8 ####[facility] MILLFRANKLINNCLIA [id number] [place] [address] [place] MCHC (RBC) [Mass/Vol] 33.2 g/dL Normal 30.5-36.0 [facility] Comment on above: Order Comment: Speci men Type: BLOOD SPECIMENOrdering Facility: [facility] Address: [address] [place] [address] Performed By: #### 5 7021-8 ####[facility]PITALLIA [id number] [place] [address] [place] MCV (RBC) [Entitic vol] 95.9 fL Normal 80.0-100.0 [facility] Comment on above: Order Comment: Speci men Type: BLOOD SPECIMENOrdering Facility: [facility] Address: [address] [place] [address] Performed By: #### 5 7021-8 ####[facility] [id number] [place] [address] [place] Monocytes (Bld) [#/Vol] 0.49 10*3/uL Normal <0.87 [facility] Comment on above: Order Comment: Speci men Type: BLOOD SPECIMENOrdering Facility: [facility] Address: [address] [place] [address] Performed By: #### 5 7021-8 ####[facility] [id number] [place] [address] [place] Monocytes/100 WBC (Bld) 17.5 % Normal [facility] Comment on above: Order Comment: Speci men Type: BLOOD SPECIMENOrdering Facility: [facility] Address: [address] [place] [address] Performed By: #### 5 7021-8 ####[facility] [id number] [place] [address] [place] Neutrophils (Bld) [#/Vol] 1.62 10*3/uL Normal 1.45-7.50 [facility] Comment on above: Order Comment: Speci men Type: BLOOD SPECIMENOrdering Facility: [facility] Address: [address] [place] [address] Performed By: #### 5 7021-8 ####[facility] [id number] [place] [address] [place] Neutrophils/100 WBC (Bld) 57.9 % Normal [facility] Comment on above: Order Comment: Speci men Type: BLOOD SPECIMENOrdering Facility: [facility] Address: [address] [place] [address] Performed By: #### 5 7021-8 ####[facility]ENCJ[facility] [id number] [place] [address] [place] Nucleated RBC (Bld) [#/Vol] 10*3/uL Normal <0.01 [facility] Comment on above: Order Comment: Speci men Type: BLOOD SPECIMENOrdering Facility: [facility] Address: [address] [place] [address] Performed By: #### 5 7021-8 ####[facility]ENCJ[facility] [id number] [place] [address] [place] Nucleated RBC/100 WBC (Bld) [Ratio] 0.0 /100 WBC Normal [facility] Comment on above: Order Comment: Speci men Type: BLOOD SPECIMENOrdering Facility: [facility] Address: [address] [place] [address] Performed By: #### 5 7021-8 ####[facility] [id number] [place] [address] [place] Platelet mean volume (Bld) [Entitic vol] 9.6 fL Normal 9.0-12.7 [facility] Comment on above: Order Comment: Speci men Type: BLOOD SPECIMENOrdering Facility: [facility] Address: [address] [place] [address] Performed By: #### 5 7021-8 ####[facility]ITALLIA [id number] [place] [address] [place] Platelets (Bld) [#/Vol] 125 10*3/uL Low 150-400 [facility] Comment on above: Order Comment: Speci men Type: BLOOD SPECIMENOrdering Facility: [facility] Address: [address] [place] [address] Performed By: #### 5 7021-8 ####[facility] MICKISamanthaNCCYNTHIAA [id number] [place] [address] [place] RBC (Bld) [#/Vol] 2.92 10*6/uL Low 4.20-6.00 [facility] Comment on above: Order Comment: Speci men Type: BLOOD SPECIMENOrdering Facility: [facility] Address: [address] [place] [address] Performed By: #### 5 7021-8 ####[facility]ILLENCWINIFRED [id number] [place] [address] [place] WBC (Bld) [#/Vol] 2.80 10*3/uL Low 3.70-11.00 [facility] Comment on above: Order Comment: Speci men Type: BLOOD SPECIMENOrdering Facility: [facility] Address: [address] [place] [address] Performed By: #### 5 7021-8 ####[facility] PARKWAYA [id number] [place] [address] [place] CNOVSPon 02-25-2025 CNOVSP Normal [facility] Comprehensive metabolic 2000 panelon 02-25-2025 Albumin [Mass/Vol] 3.7 g/dL Low 3.9-4.9 [facility] Comment on above: Order Comment: Speci men Type: BLOOD SPECIMENOrdering Facility: [facility] Address: [address] [place] [address] Performed By: #### 2 4323-8 ####[facility] [id number] [place] [address] [place] ALP [Catalytic activity/Vol] 210 U/L High 38-113 [facility] Comment on above: Order Comment: Speci men Type: BLOOD SPECIMENOrdering Facility: [facility] Address: [address] [place] [address] [place] [address] Performed By: #### 2 4323-8 ####[facility] MYA MILLTOWNCLIA [id number] [place] [address] [place] ALT [Catalytic activity/Vol] 21 U/L Normal 10-54 [facility] Comment on above: Order Comment: Speci men Type: BLOOD SPECIMENOrdering Facility: [facility] Address: [address] [place] [address] Performed By: #### 2 4323-8 ####[facility] MILLWNCLIA [id number] [place] [address] [place] Anion gap [Moles/Vol] 8 mmol/L Normal 8-15 [facility] Comment on above: Order Comment: Speci men Type: BLOOD SPECIMENOrdering Facility: [facility] Address: [address] [place] [address] Performed By: #### 2 4323-8 ####[facility]ILL[facility]CL[facility] [id number] [place] [address] [place] AST [Catalytic activity/Vol] 30 U/L Normal 14-40 [facility] Comment on above: Order Comment: Speci men Type: BLOOD SPECIMENOrdering Facility: [facility] Address: [address] [place] [address] Performed By: #### 2 4323-8 ####[facility] MILLTOWNCLIA [id number] [place] [address] [place] Bilirubin [Mass/Vol] 0.3 mg/dL Normal 0.2-1.3 [facility] Comment on above: Order Comment: Speci men Type: BLOOD SPECIMENOrdering Facility: [facility] Address: [address] [place] [address] Performed By: #### 2 4323-8 ####[facility] RIDGEWNCLIA [id number] [place] [address] [place] Calcium [Mass/Vol] 9.0 mg/dL Normal 8.5-10.2 [facility] Comment on above: Order Comment: Speci men Type: BLOOD SPECIMENOrdering Facility: [facility] Address: [address] [place] [address] Performed By: #### 2 4323-8 ####[facility] MILLTOWNCLIA [id number] [place] [address] [place] Chloride [Moles/Vol] 100 mmol/L Normal 98-107 [facility] Comment on above: Order Comment: Speci men Type: BLOOD SPECIMENOrdering Facility: [facility] Address: [address] [place] [address] Performed By: #### 2 4323-8 ####[facility] P[facility] RIDGEWNCLIA [id number] [place] [address] [place] CO2 [Moles/Vol] 30 mmol/L Normal 22-30 [facility] Comment on above: Order Comment: Speci men Type: BLOOD SPECIMENOrdering Facility: [facility] Address: [address] [place] [address] Performed By: #### 2 4323-8 ####[facility]ALL[facility] [id number] [place] [address] [place] Creatinine [Mass/Vol] 0.83 mg/dL Normal 0.73-1.22 [facility] Comment on above: Order Comment: Speci men Type: BLOOD SPECIMENOrdering Facility: [facility] Address: [address] [place] [address] Performed By: #### 2 4323-8 ####[facility] MILLFRANKLINNCLIA [id number] [place] [address] [place] Creatinine and Glomerular filtration rate.predicted panel (S/P/Bld) 90 mL/min/1.73m??? Normal >=60 [facility] Comment on above: Order Comment: Maury gama Type: BLOOD SPECIMENOrdering Facility: [facility] Address: [address] [id number] Result Comment: Lulu mated Glomerular Filtration Rate (eGFR) is calculated using the 2020 CKD-EPI creatinine equation. This equation utilizes serum creatinine, sex, and age as parameters. The creatinine assay has traceable calibration to isotope dilution-mass spectrometry. Refer to KDIGO guidelines for clinical interpretation. In patients with unstable renal function, e.g. those with acute kidney injury, the eGFR may not accurately reflect actual GFR. Performed By: #### 2 4323-8 ####[facility] [id number] [place] [address] [place] Glucose [Mass/Vol] 153 mg/dL High 74-99 [facility] Comment on above: Order Comment: Maury gama Type: BLOOD SPECIMENOrdering Facility: [facility] Address: [address] [place] [address] Result Comment: The [place] Diabetes Association (ADA) provides guidance for cutoff values for fasting glucose and random glucose. The ADA defines fasting as no caloric intake for at least 8 hours. Fasting plasma glucose results between 100 to 125 mg/dL indicate increased risk for diabetes (prediabetes).Fasting plasma glucose results greater than or equal to 126 mg/dL meet the criteria for diagnosis of diabetes. In the absence of unequivocal hyperglycemia, results should be confirmed by repeat testing. In a patient with classic symptoms of hyperglycemia or hyperglycemic crisis, random plasma glucose results greater than or equal to 200 mg/dL meet the criteria for diagnosis of diabetes.Reference: Standards of Medical Care in Diabetes 2016, [place] [employer]. Diabetes Care. 2016.39(Suppl 1). Performed By: #### 2 4323-8 ####[facility] [id number] [place] [address] [place] Potassium [Moles/Vol] 4.2 mmol/L Normal 3.7-5.1 [facility] Comment on above: Order Comment: Maury gama Type: BLOOD SPECIMENOrdering Facility: [facility] Address: [address] [id number] Performed By: #### 2 4323-8 ####[facility] MYA MILLTOWNCLIA [id number] [place] [address] [place] Protein [Mass/Vol] 6.9 g/dL Normal 6.3-8.0 [facility] Comment on above: Order Comment: Speci men Type: BLOOD SPECIMENOrdering Facility: [facility] Address: [address] [place] [address] Performed By: #### 2 4323-8 ####[facility] MILLWNCLIA [id number] [place] [address] [place] Sodium [Moles/Vol] 138 mmol/L Normal 136-144 [facility] Comment on above: Order Comment: Speci men Type: BLOOD SPECIMENOrdering Facility: [facility] Address: [address] [place] [address] Performed By: #### 2 4323-8 ####[facility] MILLTOWNCLIA [id number] [place] [address] [place] Urea nitrogen [Mass/Vol] 21 mg/dL Normal 9-24 [facility] Comment on above: Order Comment: Speci men Type: BLOOD SPECIMENOrdering Facility: [facility] Address: [address] [place] [address] Performed By: #### 2 4323-8 ####[facility] MILLWNCLIA [id number] [place] [address] [place] Cortis SerPl-mCncon 02-26-20 25 Cortisol [Mass/Vol] 13.3 ug/dL Normal 4.8-19.5 [facility] Comment on above: Order Comment: Speci men Type: BLOOD SPECIMENOrdering Facility: [facility] Address: [address] [place] [address] Result Comment: Prov ided reference range is from 6-10 AM sample collection time.Cortisol Reference Range: 6-10 AM = 4.8-19.5 ug/dL, 4-8 PM = 2.5-11.9 ug/dL Performed By: #### 3 024-7, 3015-3, 2143-03 ####[facility] LABIA [id number] [address] [address] [place] T4 Free SerPl-mCncon 025 Free T4 [Mass/Vol] 1.2 ng/dL Normal 0.9-1.7 [facility] Comment on above: Order Comment: Speci men Type: BLOOD SPECIMENOrdering Facility: [facility] Address: [address] [place] [address] Performed By: #### 3 024-7, 3, 2143-03 ####[facility] [id number] [place] [id number] [place] TSH SerPl-aCncon 02-25-2025 TSH Qn 6.130 m[IU]/L High 0.270-4.200 [facility] Comment on above: Order Comment: Speci men Type: BLOOD SPECIMENOrdering Facility: [facility] Address: [address] [place], [place] [address] [address] Performed By: #### 3 024-7, 3015-12, 2143-03 ####[facility] [id number] [place] [id number] [place] Basic metabolic 2000 panelOr dered By: Lesly Lopes on 02-14-2025 Anion gap [Moles/Vol] 10 mmol/L 8 - 15 mmol/L [facility] Calcium [Mass/Vol] 9.1 mg/dL 8.5 - 10. 2 mg/dL [facility] Chloride [Moles/Vol] 98 mmol/L 98 - 10 7 mmol/L [facility] CO2 [Moles/Vol] 28 mmol/L 22 - 30 mmol/L [facility] Creatinine [Mass/Vol] 0.78 mg/dL 0.73 - 1.22 mg/dL [facility] GFR/1.73 sq M.predicted among non-blacks MDRD (S/P/Bld) [Vol rate/Area] 92 mL/min/{1.73_m2} - PINF [facility] Comment on above: Estimated Glomerular Filtration Rate (eGFR) is calculated using the 2020 CKD-EPI creatinine equation. This equation utilizes serum creatinine, sex, and age as parameters. The creatinine assay has traceable calibration to isotope dilution-mass spectrometry. Refer to KDIGO guidelines for clinical interpretation. In patients with unstable renal function, e.g. those with acute kidney injury, the eGFR may not accurately reflect actual GFR. Glucose [Mass/Vol] 161 mg/dL High 74 - 99 mg/dL [facility] Comment on above: The [place] Diabete s Association (ADA) provides guidance for cutoff values for fasting glucose and random glucose. The ADA defines fasting as no caloric intake for at least 8 hours. Fasting plasma glucose results between 100 to 125 mg/dL indicate increased risk for diabetes (prediabetes). Fasting plasma glucose results greater than or equal to 126 mg/dL meet the criteria for diagnosis of diabetes. In the absence of unequivocal hyperglycemia, results should be confirmed by repeat testing. In a patient with classic symptoms of hyperglycemia or hyperglycemic crisis, random plasma glucose results greater than or equal to 200 mg/dL meet the criteria for diagnosis of diabetes. Reference: Standards of Medical Care in Diabetes 2016, [place] [employer]. Diabetes Care. 2016.39(Suppl 1). Interpretation and review of laboratory results Abnormal [facility] Potassium [Moles/Vol] 4.2 mmol/L 3.7 - 5.1 mmol/L [facility] Sodium [Moles/Vol] 136 mmol/L 136 - 144 mmol/L [facility] Urea nitrogen [Mass/Vol] 25 mg/dL High 9 - 24 mg/dL [facility] Basic metabolic 2000 panelon 02-14-2025 Anion gap [Moles/Vol] 10 mmol/L Normal 8-15 [facility] Comment on above: Order Comment: Speci men Type: BLOOD SPECIMENOrdering Facility: [facility] Address: [address] [address] Performed By: #### 2 4321-2 ####[facility] [id number] [place] [address] [place] Calcium [Mass/Vol] 9.1 mg/dL Normal 8.5-10.2 [facility] Comment on above: Order Comment: Speci men Type: BLOOD SPECIMENOrdering Facility: [facility] Address: [address] [place] [address] Performed By: #### 2 4321-2 ####[facility]ILL[facility]CL[facility] [id number] [place] [address] [place] Chloride [Moles/Vol] 98 mmol/L Normal 98-107 [facility] Comment on above: Order Comment: Speci men Type: BLOOD SPECIMENOrdering Facility: [facility] Address: [address] [place] [address] Performed By: #### 2 4321-2 ####[facility] [id number] [place] [address] [place] CO2 [Moles/Vol] 28 mmol/L Normal 22-30 [facility] Comment on above: Order Comment: Speci men Type: BLOOD SPECIMENOrdering Facility: [facility] Address: [address] [place] [address] Performed By: #### 2 4321-2 ####[facility] [id number] [place] [address] [place] Creatinine [Mass/Vol] 0.78 mg/dL Normal 0.73-1.22 [facility] Comment on above: Order Comment: Speci men Type: BLOOD SPECIMENOrdering Facility: [facility] Address: [address] [place] [address] Performed By: #### 2 4321-2 ####[facility] [id number] [address] [place] Creatinine and Glomerular filtration rate.predicted panel (S/P/Bld) 92 mL/min/1.73m??? Normal >=60 [facility] Comment on above: Order Comment: Speci men Type: BLOOD SPECIMENOrdering Facility: [facility] Address: [address] [place] [address] Result Comment: Lulu mated Glomerular Filtration Rate (eGFR) is calculated using the 2020 CKD-EPI creatinine equation. This equation utilizes serum creatinine, sex, and age as parameters. The creatinine assay has traceable calibration to isotope dilution-mass spectrometry. Refer to KDIGO guidelines for clinical interpretation. In patients with unstable renal function, e.g. those with acute kidney injury, the eGFR may not accurately reflect actual GFR. Performed By: #### 2 4321-2 ####[facility] [id number] [place] [address] [place] Glucose [Mass/Vol] 161 mg/dL High 74-99 [facility] Comment on above: Order Comment: Maury gama Type: BLOOD SPECIMENOrdering Facility: [facility] Address: [address] [place] [address] Result Comment: The [place] Diabetes Association (ADA) provides guidance for cutoff values for fasting glucose and random glucose. The ADA defines fasting as no caloric intake for at least 8 hours. Fasting plasma glucose results between 100 to 125 mg/dL indicate increased risk for diabetes (prediabetes).Fasting plasma glucose results greater than or equal to 126 mg/dL meet the criteria for diagnosis of diabetes. In the absence of unequivocal hyperglycemia, results should be confirmed by repeat testing. In a patient with classic symptoms of hyperglycemia or hyperglycemic crisis, random plasma glucose results greater than or equal to 200 mg/dL meet the criteria for diagnosis of diabetes.Reference: Standards of Medical Care in Diabetes 2016, [place] [employer]. Diabetes Care. 2016.39(Suppl 1). Performed By: #### 2 4321-2 ####[facility] [id number] [place] [address] [place] Potassium [Moles/Vol] 4.2 mmol/L Normal 3.7-5.1 [facility] Comment on above: Order Comment: Maury gama Type: BLOOD SPECIMENOrdering Facility: [facility] Address: [address] [place] [address] Performed By: #### 2 4321-2 ####[facility] MILLWNCLIA [id number] [place] [address] [place] Sodium [Moles/Vol] 136 mmol/L Normal 136-144 [facility] Comment on above: Order Comment: Speci men Type: BLOOD SPECIMENOrdering Facility: [facility] Address: [address] [place] [address] Performed By: #### 2 4321-2 ####[facility] [id number] [place] [address] [place] Urea nitrogen [Mass/Vol] 25 mg/dL High 9-24 [facility] Comment on above: Order Comment: Speci men Type: BLOOD SPECIMENOrdering Facility: [facility] Address: [address] [place] [address] Performed By: #### 2 4321-2 ####[facility] PARKWAYA [id number] [place] [address] [place] CBC W Auto Differential pane l (Bld)on 02-14-2025 Basophils (Bld) [#/Vol] 0.03 10*3/uL Normal <0.11 [facility] Comment on above: Order Comment: Speci men Type: BLOOD SPECIMENOrdering Facility: [facility] Address: [address] [place] [address] Performed By: #### 5 7021-8 ####[facility]CL[facility] [id number] [place] [address] [place] Basophils/100 WBC (Bld) 0.8 % Normal [facility] Comment on above: Order Comment: Speci men Type: BLOOD SPECIMENOrdering Facility: [facility] Address: [address] [place] [address] Performed By: #### 5 7021-8 ####[facility]VILLEHAIMLIA [id number] [place] [address] [place] Differential cell count method Nom (Bld) Auto Normal [facility] Comment on above: Order Comment: Speci men Type: BLOOD SPECIMENOrdering Facility: [facility] Address: [address] [place] [address] Performed By: #### 5 7021-8 ####[facility] [id number] [place] [address] [place] Eosinophils (Bld) [#/Vol] 10*3/uL Normal <0.46 [facility] Comment on above: Order Comment: Speci men Type: BLOOD SPECIMENOrdering Facility: [facility] Address: [address] [place] [address] Performed By: #### 5 7021-8 ####[facility] [id number] [place] [address] [place] Eosinophils/100 WBC (Bld) 0.5 % Normal [facility] Comment on above: Order Comment: Speci men Type: BLOOD SPECIMENOrdering Facility: [facility] Address: [address] [place] [address] Performed By: #### 5 7021-8 ####[facility] [id number] [place] [address] [place] Erythrocyte distribution width (RBC) [Ratio] 12.6 % Normal 11.5-15.0 [facility] Comment on above: Order Comment: Speci men Type: BLOOD SPECIMENOrdering Facility: [facility] Address: [address] [place] [address] Performed By: #### 5 7021-8 ####[facility] [id number] [place] [address] [place] Hematocrit (Bld) [Volume fraction] 32.0 % Low 39.0-51.0 [facility] Comment on above: Order Comment: Speci men Type: BLOOD SPECIMENOrdering Facility: [facility] Address: [address] [place] [address] Performed By: #### 5 7021-8 ####[facility] MICKIFRANKLINRASHAD [id number] [place] [address] [place] Hemoglobin (Bld) [Mass/Vol] 10.8 g/dL Low 13.0-17.0 [facility] Comment on above: Order Comment: Speci men Type: BLOOD SPECIMENOrdering Facility: [facility] Address: [address] [place] [address] Performed By: #### 5 7021-8 ####[facility] [id number] [place] [address] [place] Immature granulocytes (Bld) [#/Vol] 0.04 10*3/uL Normal <0.10 [facility] Comment on above: Order Comment: Speci men Type: BLOOD SPECIMENOrdering Facility: [facility] Address: [address] [place] [address] Performed By: #### 5 7021-8 ####[facility] [id number] [place] [address] [place] Immature granulocytes/100 WBC (Bld) 1.0 % Normal [facility] Comment on above: Order Comment: Speci men Type: BLOOD SPECIMENOrdering Facility: [facility] Address: [address] [place] [address] Performed By: #### 5 7021-8 ####[facility] [id number] [place] [address] [place] Lymphocytes (Bld) [#/Vol] 0.92 10*3/uL Low 1.00-4.00 [facility] Comment on above: Order Comment: Speci men Type: BLOOD SPECIMENOrdering Facility: [facility] Address: [address] [place] [address] Performed By: #### 5 7021-8 ####[facility]ITALWINIFRED [id number] [place] [address] [place] Lymphocytes/100 WBC (Bld) 23.0 % Normal [facility] Comment on above: Order Comment: Speci men Type: BLOOD SPECIMENOrdering Facility: [facility] Address: [address] [place] [address] Performed By: #### 5 7021-8 ####[facility] [id number] [place] [address] [place] MCH (RBC) [Entitic mass] 32.1 pg Normal 26.0-34.0 [facility] Comment on above: Order Comment: Speci men Type: BLOOD SPECIMENOrdering Facility: [facility] Address: [address] [place] [address] Performed By: #### 5 7021-8 ####[facility] [id number] [place] [address] [place] MCHC (RBC) [Mass/Vol] 33.8 g/dL Normal 30.5-36.0 [facility] Comment on above: Order Comment: Speci men Type: BLOOD SPECIMENOrdering Facility: [facility] Address: [address] [place] [address] Performed By: #### 5 7021-8 ####[facility] [id number] [place] [address] [place] MCV (RBC) [Entitic vol] 95.2 fL Normal 80.0-100.0 [facility] Comment on above: Order Comment: Speci men Type: BLOOD SPECIMENOrdering Facility: [facility] Address: [address] [place] [address] Performed By: #### 5 7021-8 ####[facility]CL[facility] [id number] [place] [address] [place] Monocytes (Bld) [#/Vol] 0.56 10*3/uL Normal <0.87 [facility] Comment on above: Order Comment: Speci men Type: BLOOD SPECIMENOrdering Facility: [facility] Address: [address] [place] [address] Performed By: #### 5 7021-8 ####[facility] [id number] [place] [address] [place] Monocytes/100 WBC (Bld) 14.0 % Normal [facility] Comment on above: Order Comment: Speci men Type: BLOOD SPECIMENOrdering Facility: [facility] Address: [address] [place] [address] Performed By: #### 5 7021-8 ####[facility] [id number] [place] [address] [place] Neutrophils (Bld) [#/Vol] 2.43 10*3/uL Normal 1.45-7.50 [facility] Comment on above: Order Comment: Speci men Type: BLOOD SPECIMENOrdering Facility: [facility] Address: [address] [place] [address] Performed By: #### 5 7021-8 ####[facility] [id number] [place] [address] [place] Neutrophils/100 WBC (Bld) 60.7 % Normal [facility] Comment on above: Order Comment: Speci men Type: BLOOD SPECIMENOrdering Facility: [facility] Address: [address] [place] [address] Performed By: #### 5 7021-8 ####[facility] [id number] [place] [address] [place] Nucleated RBC (Bld) [#/Vol] 10*3/uL Normal <0.01 [facility] Comment on above: Order Comment: Speci men Type: BLOOD SPECIMENOrdering Facility: [facility] Address: [address] [place] [address] Performed By: #### 5 7021-8 ####[facility] MG [id number] [place] [address] [place] Nucleated RBC/100 WBC (Bld) [Ratio] 0.0 /100 WBC Normal [facility] Comment on above: Order Comment: Speci men Type: BLOOD SPECIMENOrdering Facility: [facility] Address: [address] [place] [address] Performed By: #### 5 7021-8 ####[facility] MICKIFRANKLINRASHAD [id number] [place] [address] [place] Platelet mean volume (Bld) [Entitic vol] 8.4 fL Low 9.0-12.7 [facility] Comment on above: Order Comment: Speci men Type: BLOOD SPECIMENOrdering Facility: [facility] Address: [address] [place] [address] Performed By: #### 5 7021-8 ####[facility] [id number] [place] [address] [place] Platelets (Bld) [#/Vol] 322 10*3/uL Normal 150-400 [facility] Comment on above: Order Comment: Speci men Type: BLOOD SPECIMENOrdering Facility: [facility] Address: [address] [place] [address] Performed By: #### 5 7021-8 ####[facility]VILLEHAIMLITiffani [id number] [place] [address] [place] RBC (Bld) [#/Vol] 3.36 10*6/uL Low 4.20-6.00 [facility] Comment on above: Order Comment: Speci men Type: BLOOD SPECIMENOrdering Facility: [facility] Address: [address] [place] [address] Performed By: #### 5 7021-8 ####[facility] P[facility] RIDGEWNCLIA [id number] [place] [address] [place] WBC (Bld) [#/Vol] 4.00 10*3/uL Normal 3.70-11.00 [facility] Comment on above: Order Comment: Speci men Type: BLOOD SPECIMENOrdering Facility: [facility] Address: [address] [place] [address] Performed By: #### 5 7021-8 ####[facility]ALL[facility] [id number] [place] [address] [place] CBC W Auto Differential pane l (Bld)on 02-12-2025 Basophils (Bld) [#/Vol] 0.02 10*3/uL Normal <0.11 [facility] Comment on above: Order Comment: Speci men Type: BLOOD SPECIMENOrdering Facility: [facility] Address: [address] [place] [address] Performed By: #### 5 7021-8 ####[facility] PARKWAYA [id number] [address] LABORATORYCLIA [id number] [place] [address] [place] [facility] Basophils/100 WBC (Bld) 1.0 % Normal [facility] Comment on above: Order Comment: Speci men Type: BLOOD SPECIMENOrdering Facility: [facility] Address: [address] [place] [address] Performed By: #### 5 7021-8 ####[facility] PARK[facility] [id number] [address] LABORATORYCLIA [id number] [place] [address] [place] Dacrocytes LM Ql (Bld) Few Normal [facility] Comment on above: Order Comment: Speci men Type: BLOOD SPECIMENOrdering Facility: [facility] Address: [address] [place] [address] Performed By: #### 5 7021-8 ####[facility] ALEXISWNCLIA [id number] [address] LABORATORYCLIA [id number] [place] [address] [place] Differential cell count method Nom (Bld) Manual Normal [facility] Comment on above: Order Comment: Speci men Type: BLOOD SPECIMENOrdering Facility: [facility] Address: [address] [place] [address] Performed By: #### 5 7021-8 ####[facility]IML[facility] [id number] [address] LABORATORYCLIA [id number] [place] [address] [place] Eosinophils (Bld) [#/Vol] 0.00 10*3/uL Normal <0.46 [facility] Comment on above: Order Comment: Speci men Type: BLOOD SPECIMENOrdering Facility: [facility] Address: [address] [place] [address] Performed By: #### 5 7021-8 ####[facility] P[facility] RIDGEWNCLIA [id number] [address] LABORATORYCLIA [id number] [place] [address] [place] Eosinophils/100 WBC (Bld) 0.0 % Normal [facility] Comment on above: Order Comment: Speci men Type: BLOOD SPECIMENOrdering Facility: [facility] Address: [address] [place] [address] Performed By: #### 5 7021-8 ####[facility] MILLTOWNCLIA [id number] [address] LABORATORYCLIA [id number] [place] [address] [place] Erythrocyte distribution width (RBC) [Ratio] 12.9 % Normal 11.5-15.0 [facility] Comment on above: Order Comment: Speci men Type: BLOOD SPECIMENOrdering Facility: [facility] Address: [address] [place] [address] Performed By: #### 5 7021-8 ####[facility] PINE RIDGEWSDLIA [id number] [address] LABORATORYIA [id number] [place] [address] [place] Hematocrit (Bld) [Volume fraction] 29.8 % Low 39.0-51.0 [facility] Comment on above: Order Comment: Speci men Type: BLOOD SPECIMENOrdering Facility: [facility] Address: [address] [place] [address] Performed By: #### 5 7021-8 ####[facility] [id number] [address] LABORATORYIA [id number] [place] [address] [place] Hemoglobin (Bld) [Mass/Vol] 10.1 g/dL Low 13.0-17.0 [facility] Comment on above: Order Comment: Speci men Type: BLOOD SPECIMENOrdering Facility: [facility] Address: [address] [place] [address] Performed By: #### 5 7021-8 ####[facility] [id number] [address] LABORATORYIA [id number] [place] [address] [place] Lymphocytes (Bld) [#/Vol] 0.62 10*3/uL Low 1.00-4.00 [facility] Comment on above: Order Comment: Speci men Type: BLOOD SPECIMENOrdering Facility: [facility] Address: [address] [place] [address] Performed By: #### 5 7021-8 ####[facility] MYA MILLTOWNCLIA [id number] [address] LABORATORYCLIA [id number] [address] Lymphocytes/100 WBC (Bld) 41.0 % Normal [facility] Comment on above: Order Comment: Speci men Type: BLOOD SPECIMENOrdering Facility: [facility] Address: [address] [place] [address] Performed By: #### 5 7021-8 ####[facility] RIDGEWNCLIA [id number] [address] LABORATORYCLIA [id number] [place] [address] [place] MCH (RBC) [Entitic mass] 32.3 pg Normal 26.0-34.0 [facility] Comment on above: Order Comment: Speci men Type: BLOOD SPECIMENOrdering Facility: [facility] Address: [address] [place] [address] Performed By: #### 5 7021-8 ####[facility] MYA MILLTOWNCLIA [id number] [address] LABORATORYCLIA [id number] [place] [address] [place] MCHC (RBC) [Mass/Vol] 33.9 g/dL Normal 30.5-36.0 [facility] Comment on above: Order Comment: Speci men Type: BLOOD SPECIMENOrdering Facility: [facility] Address: [address] [place] [address] Performed By: #### 5 7021-8 ####[facility] [id number] [address] LABORATORYCLIA [id number] [place] [address] [place] MCV (RBC) [Entitic vol] 95.2 fL Normal 80.0-100.0 [facility] Comment on above: Order Comment: Speci men Type: BLOOD SPECIMENOrdering Facility: [facility] Address: [address] [place] [address] Performed By: #### 5 7021-8 ####[facility] [id number] [address] LABORATORYCLIA [id number] [place] [address] [place] Monocytes (Bld) [#/Vol] 0.12 10*3/uL Normal <0.87 [facility] Comment on above: Order Comment: Speci men Type: BLOOD SPECIMENOrdering Facility: [facility] Address: [address] [place] [address] Performed By: #### 5 7021-8 ####[facility] [id number] [address] LABORATORYCLIA [id number] [place] [address] [place] Monocytes/100 WBC (Bld) 8.0 % Normal [facility] Comment on above: Order Comment: Speci men Type: BLOOD SPECIMENOrdering Facility: [facility] Address: [address] [place] [address] Performed By: #### 5 7021-8 ####[facility] [id number] [address] LABORATORYCLIA [id number] [place] [address] [place] MYELO% 1.0 % Normal [facility] Comment on above: Order Comment: Speci men Type: BLOOD SPECIMENOrdering Facility: [facility] Address: [address] [place] [address] Performed By: #### 5 7021-8 ####[facility] RIDGEWNCLIA [id number] [address] LABORATORYCLIA [id number] [place] [address] [place] Neutrophils (Bld) [#/Vol] 0.74 10*3/uL Low 1.45-7.50 [facility] Comment on above: Order Comment: Speci men Type: BLOOD SPECIMENOrdering Facility: [facility] Address: [address] [place] [address] Performed By: #### 5 7021-8 ####[facility] [id number] [address] LABORATORYCLIA [id number] [place] [address] [place] Neutrophils/100 WBC (Bld) 49.0 % Normal [facility] Comment on above: Order Comment: Speci men Type: BLOOD SPECIMENOrdering Facility: [facility] Address: [address] [place] [address] Performed By: #### 5 7021-8 ####[facility] [id number] [address] LABORATORYCLIA [id number] [place] [address] [place] Nucleated RBC (Bld) [#/Vol] 10*3/uL Normal <0.01 [facility] Comment on above: Order Comment: Speci men Type: BLOOD SPECIMENOrdering Facility: [facility] Address: [address] [place] [address] Performed By: #### 5 7021-8 ####[facility] MILLTOWNCLIA [id number] [address] LABORATORYCLIA [id number] [place] [address] [place] Nucleated RBC/100 WBC (Bld) [Ratio] 0.0 /100 WBC Normal [facility] Comment on above: Order Comment: Speci men Type: BLOOD SPECIMENOrdering Facility: [facility] Address: [address] [place] [address] Performed By: #### 5 7021-8 ####[facility] [id number] [address] LABORATORYIA [id number] [place] [address] [place] Ovalocytes LM Ql (Bld) Few Normal [facility] Comment on above: Order Comment: Speci men Type: BLOOD SPECIMENOrdering Facility: [facility] Address: [address] [place] [address] Performed By: #### 5 7021-8 ####[facility] [id number] [address] LABORATORYIA [id number] [place] [address] [place] Platelet mean volume (Bld) [Entitic vol] 8.1 fL Low 9.0-12.7 [facility] Comment on above: Order Comment: Speci men Type: BLOOD SPECIMENOrdering Facility: [facility] Address: [address] [place] [address] Performed By: #### 5 7021-8 ####[facility] [id number] [address] LABORATORYIA [id number] [place] [address] [place] Platelets (Bld) [#/Vol] 572 10*3/uL High 150-400 [facility] Comment on above: Order Comment: Speci men Type: BLOOD SPECIMENOrdering Facility: [facility] Address: [address] [place] [address] Result Comment: No c lot detected. Performed By: #### 5 7021-8 ####[facility] MILLWNCLIA [id number] [address] LABORATORYCLIA [id number] [place] [address] [place] Platelets Estimate (Bld) [#/Vol] Increased Normal [facility] Comment on above: Order Comment: Speci men Type: BLOOD SPECIMENOrdering Facility: [facility] Address: [address] [place] [address] Performed By: #### 5 7021-8 ####[facility] [id number] [address] LABORATORYCLIA [id number] [place] [address] [place] RBC (Bld) [#/Vol] 3.13 10*6/uL Low 4.20-6.00 [facility] Comment on above: Order Comment: Speci men Type: BLOOD SPECIMENOrdering Facility: [facility] Address: [address] [place] [address] Performed By: #### 5 7021-8 ####[facility] [id number] [address] LABORATORYCLIA [id number] [place] [address] [place] RED CELL MORPH Reviewed: see result s of individual morphologies Normal [facility] Comment on above: Order Comment: Speci men Type: BLOOD SPECIMENOrdering Facility: [facility] Address: [address] [place] [address] Performed By: #### 5 7021-8 ####[facility] MILLTOWNCLIA [id number] [address] LABORATORYCLIA [id number] [place] [address] [place] [facility] WBC (Bld) [#/Vol] 1.51 10*3/uL Low 3.70-11.00 [facility] Comment on above: Order Comment: Speci men Type: BLOOD SPECIMENOrdering Facility: [facility] Address: [address] [place] [address] Performed By: #### 5 7021-8 ####[facility] MICKIWNCLIA [id number] [address] LABORATORYCLIA [id number] [place] [address] [place] CBC W Auto Differential pane l (Bld)on 02-05-2025 Basophils (Bld) [#/Vol] 10*3/uL Normal <0.11 [facility] Comment on above: Order Comment: Speci men Type: BLOOD SPECIMENOrdering Facility: [facility] [facility] Address: [address] [place] [address] Performed By: #### 5 7021-8 ####[facility] MICKIWNCLIA [id number] [place] [address] [place] Basophils/100 WBC (Bld) 0.4 % Normal [facility] Comment on above: Order Comment: Speci men Type: BLOOD SPECIMENOrdering Facility: [facility] Address: [address] [place] [address] Performed By: #### 5 7021-8 ####[facility] MILLTOWNCLIA [id number] [place] [address] [place] Differential cell count method Nom (Bld) Auto Normal [facility] Comment on above: Order Comment: Speci men Type: BLOOD SPECIMENOrdering Facility: [facility] Address: [address] [place] [address] Performed By: #### 5 7021-8 ####[facility] MICKISamanthaMAISHATiffani [id number] [place] [address] [place] Eosinophils (Bld) [#/Vol] 0.10 10*3/uL Normal <0.46 [facility] Comment on above: Order Comment: Speci men Type: BLOOD SPECIMENOrdering Facility: [facility] Address: [address] [place] [address] Performed By: #### 5 7021-8 ####[facility]VILLEHAIMTiffani [id number] [place] [address] [place] Eosinophils/100 WBC (Bld) 4.1 % Normal [facility] Comment on above: Order Comment: Speci men Type: BLOOD SPECIMENOrdering Facility: [facility] Address: [address] [place] [address] Performed By: #### 5 7021-8 ####[facility] [id number] [place] [address] [place] Erythrocyte distribution width (RBC) [Ratio] 12.6 % Normal 11.5-15.0 [facility] Comment on above: Order Comment: Speci men Type: BLOOD SPECIMENOrdering Facility: [facility] Address: [address] [place] [address] Performed By: #### 5 7021-8 ####[facility]SONVILLEHAIMLIA [id number] [place] [address] [place] Hematocrit (Bld) [Volume fraction] 30.7 % Low 39.0-51.0 [facility] Comment on above: Order Comment: Speci men Type: BLOOD SPECIMENOrdering Facility: [facility] Address: [address] [place] [address] Performed By: #### 5 7021-8 ####[facility] PINE RIDGEWNCLIA [id number] [place] [address] [place] Hemoglobin (Bld) [Mass/Vol] 10.4 g/dL Low 13.0-17.0 [facility] Comment on above: Order Comment: Speci men Type: BLOOD SPECIMENOrdering Facility: [facility] Address: [address] [place] [address] Performed By: #### 5 7021-8 ####[facility]ITALLIA [id number] [place] [address] [place] Immature granulocytes (Bld) [#/Vol] 10*3/uL Normal <0.10 [facility] Comment on above: Order Comment: Speci men Type: BLOOD SPECIMENOrdering Facility: [facility] Address: [address] [place] [address] Performed By: #### 5 7021-8 ####[facility] PARKWAYA [id number] [place] [address] [place] Immature granulocytes/100 WBC (Bld) 0.0 % Normal [facility] Comment on above: Order Comment: Speci men Type: BLOOD SPECIMENOrdering Facility: [facility] Address: [address] [place] [address] Performed By: #### 5 7021-8 ####[facility] HOSPITALLIA [id number] [place] [address] [place] Lymphocytes (Bld) [#/Vol] 0.61 10*3/uL Low 1.00-4.00 [facility] Comment on above: Order Comment: Speci men Type: BLOOD SPECIMENOrdering Facility: [facility] Address: [address] [place] [address] Performed By: #### 5 7021-8 ####[facility]SONVILLENCLIA [id number] [place] [address] [place] Lymphocytes/100 WBC (Bld) 25.0 % Normal [facility] Comment on above: Order Comment: Speci men Type: BLOOD SPECIMENOrdering Facility: [facility] Address: [address] [place] [address] Performed By: #### 5 7021-8 ####[facility] [id number] [place] [address] [place] MCH (RBC) [Entitic mass] 32.6 pg Normal 26.0-34.0 [facility] Comment on above: Order Comment: Speci men Type: BLOOD SPECIMENOrdering Facility: [facility] Address: [address] [place] [address] Performed By: #### 5 7021-8 ####[facility] [id number] [place] [address] [place] MCHC (RBC) [Mass/Vol] 33.9 g/dL Normal 30.5-36.0 [facility] Comment on above: Order Comment: Speci men Type: BLOOD SPECIMENOrdering Facility: [facility] Address: [address] [place] [address] Performed By: #### 5 7021-8 ####[facility]ENCJORD[facility] [id number] [place] [address] [place] MCV (RBC) [Entitic vol] 96.2 fL Normal 80.0-100.0 [facility] Comment on above: Order Comment: Speci men Type: BLOOD SPECIMENOrdering Facility: [facility] Address: [address] [place] [address] Performed By: #### 5 7021-8 ####[facility]ENCJORD[facility] [id number] [place] [address] [place] Monocytes (Bld) [#/Vol] 0.40 10*3/uL Normal <0.87 [facility] Comment on above: Order Comment: Speci men Type: BLOOD SPECIMENOrdering Facility: [facility] Address: [address] [place] [address] Performed By: #### 5 7021-8 ####[facility] MICKILING [id number] [place] [address] [place] Monocytes/100 WBC (Bld) 16.4 % Normal [facility] Comment on above: Order Comment: Speci men Type: BLOOD SPECIMENOrdering Facility: [facility] Address: [address] [place] [address] Performed By: #### 5 7021-8 ####[facility]ILLENCJORD[facility] [id number] [place] [address] [place] Neutrophils (Bld) [#/Vol] 1.32 10*3/uL Low 1.45-7.50 [facility] Comment on above: Order Comment: Speci men Type: BLOOD SPECIMENOrdering Facility: [facility] Address: [address] [place] [address] Performed By: #### 5 7021-8 ####[facility] [id number] [place] [address] [place] Neutrophils/100 WBC (Bld) 54.1 % Normal [facility] Comment on above: Order Comment: Speci men Type: BLOOD SPECIMENOrdering Facility: [facility] Address: [address] [place] [address] Performed By: #### 5 7021-8 ####[facility] PARKWAYA [id number] [place] [address] [place] Nucleated RBC (Bld) [#/Vol] 10*3/uL Normal <0.01 [facility] Comment on above: Order Comment: Speci men Type: BLOOD SPECIMENOrdering Facility: [facility] Address: [address] [place] [address] Performed By: #### 5 7021-8 ####[facility] SCOTTLIA [id number] [place] [address] [place] Nucleated RBC/100 WBC (Bld) [Ratio] 0.0 /100 WBC Normal [facility] Comment on above: Order Comment: Speci men Type: BLOOD SPECIMENOrdering Facility: [facility] Address: [address] [place] [address] Performed By: #### 5 7021-8 ####[facility] MICKIFRANKLINHAIMLIA [id number] [place] [address] [place] Platelet mean volume (Bld) [Entitic vol] 8.3 fL Low 9.0-12.7 [facility] Comment on above: Order Comment: Speci men Type: BLOOD SPECIMENOrdering Facility: [facility] Address: [address] [place] [address] Performed By: #### 5 7021-8 ####[facility] PARKWAYA [id number] [place] [address] [place] Platelets (Bld) [#/Vol] 365 10*3/uL Normal 150-400 [facility] Comment on above: Order Comment: Speci men Type: BLOOD SPECIMENOrdering Facility: [facility] Address: [address] [place] [address] Performed By: #### 5 7021-8 ####[facility]VILLEMAISHAA [id number] [place] [address] [place] RBC (Bld) [#/Vol] 3.19 10*6/uL Low 4.20-6.00 [facility] Comment on above: Order Comment: Speci men Type: BLOOD SPECIMENOrdering Facility: [facility] Address: [address] [place] [address] Performed By: #### 5 7021-8 ####[facility]VILLENCLIA [id number] [address] [place] WBC (Bld) [#/Vol] 2.44 10*3/uL Low 3.70-11.00 [facility] Comment on above: Order Comment: Speci men Type: BLOOD SPECIMENOrdering Facility: [facility] Address: [address] [place] [address] Performed By: #### 5 7021-8 ####[facility] [id number] [place] [address] [place] [facility] Comprehensive metabolic 2000 panelon 02-05-2025 Albumin [Mass/Vol] 3.6 g/dL Low 3.9-4.9 [facility] Comment on above: Order Comment: Speci men Type: BLOOD SPECIMENOrdering Facility: [facility] Address: [address] [place] [address] Performed By: #### 2 4323-8 ####[facility] LABCLIA [id number] [place] [address] [place] ALP [Catalytic activity/Vol] 224 U/L High 38-113 [facility] Comment on above: Order Comment: Speci men Type: BLOOD SPECIMENOrdering Facility: [facility] Address: [address] [place] [address] Performed By: #### 2 4323-8 ####[facility] LABCLIA [id number] [place] [address] [place] ALT With P-5'-P [Catalytic activity/Vol] 23 U/L Normal 10-54 [facility] Comment on above: Order Comment: Speci men Type: BLOOD SPECIMENOrdering Facility: [facility] Address: [address] [place] [address] Performed By: #### 2 4323-8 ####[facility] LABCLIA [id number] [place] [address] [place] Anion gap [Moles/Vol] 9 mmol/L Normal 8-15 [facility] Comment on above: Order Comment: Speci men Type: BLOOD SPECIMENOrdering Facility: [facility] Address: [address] [place] [address] Performed By: #### 2 4323-8 ####[facility] LABCLIA [id number] [facility] [place] [address] [place] AST With P-5'-P [Catalytic activity/Vol] 39 U/L Normal 14-40 [facility] Comment on above: Order Comment: Speci men Type: BLOOD SPECIMENOrdering Facility: [facility] Address: [address] [place] [address] Performed By: #### 2 4323-8 ####[facility] LABCLIA [id number] [facility] [place] [address] [place] Bilirubin [Mass/Vol] 0.5 mg/dL Normal 0.2-1.3 [facility] Comment on above: Order Comment: Speci men Type: BLOOD SPECIMENOrdering Facility: [facility] Address: [address] [place] [address] Performed By: #### 2 4323-8 ####[facility] LABCLIA [id number] [facility] [place] [address] [place] Calcium [Mass/Vol] 8.9 mg/dL Normal 8.5-10.2 [facility] Comment on above: Order Comment: Speci men Type: BLOOD SPECIMENOrdering Facility: [facility] Address: [address] [place] [address] Performed By: #### 2 4323-8 ####[facility] LABCLIA [id number] [facility] [place] [address] [place] Chloride [Moles/Vol] 101 mmol/L Normal 98-107 [facility] Comment on above: Order Comment: Speci men Type: BLOOD SPECIMENOrdering Facility: [facility] Address: [address] [place] [address] Performed By: #### 2 4323-8 ####[facility] LABCLIA [id number] [facility] [place] [address] [place] CO2 [Moles/Vol] 29 mmol/L Normal 22-30 [facility] Comment on above: Order Comment: Speci men Type: BLOOD SPECIMENOrdering Facility: [facility] Address: [address] [place] [address] Performed By: #### 2 4323-8 ####[facility] [employer]I LABCLIA [id number] [place] [address] [place] Creatinine [Mass/Vol] 0.87 mg/dL Normal 0.73-1.22 [facility] Comment on above: Order Comment: Speci men Type: BLOOD SPECIMENOrdering Facility: [facility] Address: [address] [place] [address] Performed By: #### 2 4323-8 ####[facility] [employer]OrgI LABCLIA [id number] [place] [address] [facility] Creatinine and Glomerular filtration rate.predicted panel (S/P/Bld) 89 mL/min/1.73m??? Normal >=60 [facility] Comment on above: Order Comment: Speci men Type: BLOOD SPECIMENOrdering Facility: [facility] Address: [address] [place] [address] Result Comment: Lulu mated Glomerular Filtration Rate (eGFR) is calculated using the 2020 CKD-EPI creatinine equation. This equation utilizes serum creatinine, sex, and age as parameters. The creatinine assay has traceable calibration to isotope dilution-mass spectrometry. Refer to KDIGO guidelines for clinical interpretation. In patients with unstable renal function, e.g. those with acute kidney injury, the eGFR may not accurately reflect actual GFR. Performed By: #### 2 4323-8 ####[facility] [employer]I LABCLIA [id number] [place] [address] [place] Glucose [Mass/Vol] 119 mg/dL High 74-99 [facility] Comment on above: Order Comment: Speci men Type: BLOOD SPECIMENOrdering Facility: [facility] Address: [address] [place] [address] Result Comment: The [place] Diabetes Association (ADA) provides guidance for cutoff values for fasting glucose and random glucose. The ADA defines fasting as no caloric intake for at least 8 hours. Fasting plasma glucose results between 100 to 125 mg/dL indicate increased risk for diabetes (prediabetes).Fasting plasma glucose results greater than or equal to 126 mg/dL meet the criteria for diagnosis of diabetes. In the absence of unequivocal hyperglycemia, results should be confirmed by repeat testing. In a patient with classic symptoms of hyperglycemia or hyperglycemic crisis, random plasma glucose results greater than or equal to 200 mg/dL meet the criteria for diagnosis of diabetes.Reference: Standards of Medical Care in Diabetes 2016, [place] [employer] Association. Diabetes Care. 2016.39(Suppl 1). Performed By: #### 2 4323-8 ####[facility] LABCLIA [id number] [place] [address] [place] Potassium [Moles/Vol] 4.3 mmol/L Normal 3.7-5.1 [facility] Comment on above: Order Comment: Speci men Type: BLOOD SPECIMENOrdering Facility: [facility] Address: [address] [place] [address] Performed By: #### 2 4323-8 ####[facility] [employer] LABCLIA [id number] [place] [address] [place] Protein [Mass/Vol] 6.8 g/dL Normal 6.3-8.0 [facility] Comment on above: Order Comment: Speci men Type: BLOOD SPECIMENOrdering Facility: [facility] Address: [address] [place] [address] Performed By: #### 2 4323-8 ####[facility] [employer] LABCLIA [id number] [place] [address] [place] Sodium [Moles/Vol] 139 mmol/L Normal 136-144 [facility] Comment on above: Order Comment: Speci men Type: BLOOD SPECIMENOrdering Facility: [facility] Address: [address] [place] [address] Performed By: #### 2 4323-8 ####[facility] [employer]I LABCLIA [id number] [place] [address] [place] Urea nitrogen [Mass/Vol] 17 mg/dL Normal 9-24 [facility] Comment on above: Order Comment: Speci men Type: BLOOD SPECIMENOrdering Facility: [facility] Address: [address] [place] [address] Performed By: #### 2 4323-8 ####[facility] LABCLIA [id number] [place] [address] [place] TSH SerPl-aCncon 02-05-2025 TSH Qn 4.450 m[IU]/L High 0.270-4.200 [facility] Comment on above: Order Comment: Speci men Type: BLOOD SPECIMENOrdering Facility: [facility] Address: [address] [place] [address] Performed By: #### 3 016-3 ####[facility] LABCLIA [id number] [place] [address] [place] CBC W Auto Differential pane l (Bld)on 01-23-2025 Basophils (Bld) [#/Vol] 10*3/uL Normal <0.11 [facility] Comment on above: Order Comment: Speci men Type: BLOOD SPECIMENOrdering Facility: [facility] Address: [address] [place] [address] Performed By: #### 5 7021-8 ####[facility] [id number] [place] [address] [place] Basophils/100 WBC (Bld) 0.3 % Normal [facility] Comment on above: Order Comment: Speci men Type: BLOOD SPECIMENOrdering Facility: [facility] Address: [address] [place] [address] Performed By: #### 5 7021-8 ####[facility] PARKWAYA [id number] [place] [address] [place] Differential cell count method Nom (Bld) Auto Normal [facility] Comment on above: Order Comment: Speci men Type: BLOOD SPECIMENOrdering Facility: [facility] Address: [address] [place] [address] Performed By: #### 5 7021-8 ####[facility] ALEXISWHAIMLIA [id number] [place] [address] [place] Eosinophils (Bld) [#/Vol] 0.12 10*3/uL Normal <0.46 [facility] Comment on above: Order Comment: Speci men Type: BLOOD SPECIMENOrdering Facility: [facility] Address: [address] [place] [address] Performed By: #### 5 7021-8 ####[facility] RIDGEWMAISHAA [id number] [place] [address] [place] Eosinophils/100 WBC (Bld) 3.0 % Normal [facility] Comment on above: Order Comment: Speci men Type: BLOOD SPECIMENOrdering Facility: [facility] Address: [address] [place] [address] Performed By: #### 5 7021-8 ####[facility]LEHAIMLIA [id number] [place] [address] [place] Erythrocyte distribution width (RBC) [Ratio] 12.5 % Normal 11.5-15.0 [facility] Comment on above: Order Comment: Speci men Type: BLOOD SPECIMENOrdering Facility: [facility] Address: [address] [place] [address] Performed By: #### 5 7021-8 ####[facility] P[facility] RIDGEWHAIMLIA [id number] [place] [address] [place] Hematocrit (Bld) [Volume fraction] 38.1 % Low 39.0-51.0 [facility] Comment on above: Order Comment: Speci men Type: BLOOD SPECIMENOrdering Facility: [facility] Address: [address] [place] [address] Performed By: #### 5 7021-8 ####[facility] RESERVE HOSPITALLIA [id number] [place] [address] [place] Hemoglobin (Bld) [Mass/Vol] 12.9 g/dL Low 13.0-17.0 [facility] Comment on above: Order Comment: Speci men Type: BLOOD SPECIMENOrdering Facility: [facility] Address: [address] [place] [address] Performed By: #### 5 7021-8 ####[facility] [id number] [place] [address] [place] Immature granulocytes (Bld) [#/Vol] 0.03 10*3/uL Normal <0.10 [facility] Comment on above: Order Comment: Speci men Type: BLOOD SPECIMENOrdering Facility: [facility] Address: [address] [place] [address] Performed By: #### 5 7021-8 ####[facility] [id number] [place] [address] [place] Immature granulocytes/100 WBC (Bld) 0.8 % Normal [facility] Comment on above: Order Comment: Speci men Type: BLOOD SPECIMENOrdering Facility: [facility] Address: [address] [place] [address] Performed By: #### 5 7021-8 ####[facility] [id number] [place] [address] [place] Lymphocytes (Bld) [#/Vol] 0.68 10*3/uL Low 1.00-4.00 [facility] Comment on above: Order Comment: Speci men Type: BLOOD SPECIMENOrdering Facility: [facility] Address: [address] [place] [address] Performed By: #### 5 7021-8 ####[facility] [id number] [place] [address] [place] Lymphocytes/100 WBC (Bld) 17.2 % Normal [facility] Comment on above: Order Comment: Speci men Type: BLOOD SPECIMENOrdering Facility: [facility] Address: [address] [place] [address] Performed By: #### 5 7021-8 ####[facility] [id number] [place] [address] [place] MCH (RBC) [Entitic mass] 32.7 pg Normal 26.0-34.0 [facility] Comment on above: Order Comment: Speci men Type: BLOOD SPECIMENOrdering Facility: [facility] Address: [address] [place] [address] Performed By: #### 5 7021-8 ####[facility] [id number] [place] [address] [place] MCHC (RBC) [Mass/Vol] 33.9 g/dL Normal 30.5-36.0 [facility] Comment on above: Order Comment: Speci men Type: BLOOD SPECIMENOrdering Facility: [facility] Address: [address] [place] [address] Performed By: #### 5 7021-8 ####[facility] [id number] [place] [address] [place] MCV (RBC) [Entitic vol] 96.5 fL Normal 80.0-100.0 [facility] Comment on above: Order Comment: Speci men Type: BLOOD SPECIMENOrdering Facility: [facility] Address: [address] [place] [address] Performed By: #### 5 7021-8 ####[facility] [id number] [place] [address] [place] Monocytes (Bld) [#/Vol] 0.18 10*3/uL Normal <0.87 [facility] Comment on above: Order Comment: Speci men Type: BLOOD SPECIMENOrdering Facility: [facility] Address: [address] [place] [address] Performed By: #### 5 7021-8 ####[facility] MILLTOWNCLIA [id number] [place] [address] [place] Monocytes/100 WBC (Bld) 4.5 % Normal [facility] Comment on above: Order Comment: Speci men Type: BLOOD SPECIMENOrdering Facility: [facility] Address: [address] [place] [address] Performed By: #### 5 7021-8 ####[facility] MILLWNCLIA [id number] [place] [address] [place] Neutrophils (Bld) [#/Vol] 2.94 10*3/uL Normal 1.45-7.50 [facility] Comment on above: Order Comment: Speci men Type: BLOOD SPECIMENOrdering Facility: [facility] Address: [address] [place] [address] Performed By: #### 5 7021-8 ####[facility] P[facility] RIDGEWNCLIA [id number] [place] [address] [place] Neutrophils/100 WBC (Bld) 74.2 % Normal [facility] Comment on above: Order Comment: Speci men Type: BLOOD SPECIMENOrdering Facility: [facility] Address: [address] [place] [address] Performed By: #### 5 7021-8 ####[facility] MILLTOWNCLIA [id number] [place] [address] [place] Nucleated RBC (Bld) [#/Vol] 10*3/uL Normal <0.01 [facility] Comment on above: Order Comment: Speci men Type: BLOOD SPECIMENOrdering Facility: [facility] Address: [address] [place] [address] Performed By: #### 5 7021-8 ####[facility] [id number] [place] [address] [place] Nucleated RBC/100 WBC (Bld) [Ratio] 0.0 /100 WBC Normal [facility] Comment on above: Order Comment: Speci men Type: BLOOD SPECIMENOrdering Facility: [facility] Address: [address] [place] [address] Performed By: #### 5 7021-8 ####[facility] [id number] [place] [address] [place] Platelet mean volume (Bld) [Entitic vol] 8.7 fL Low 9.0-12.7 [facility] Comment on above: Order Comment: Speci men Type: BLOOD SPECIMENOrdering Facility: [facility] Address: [address] [place] [address] Performed By: #### 5 7021-8 ####[facility] [id number] [place] [address] [place] Platelets (Bld) [#/Vol] 117 10*3/uL Low 150-400 [facility] Comment on above: Order Comment: Speci men Type: BLOOD SPECIMENOrdering Facility: [facility] Address: [address] [place] [address] Performed By: #### 5 7021-8 ####[facility] [id number] [place] [address] [place] RBC (Bld) [#/Vol] 3.95 10*6/uL Low 4.20-6.00 [facility] Comment on above: Order Comment: Speci men Type: BLOOD SPECIMENOrdering Facility: [facility] Address: [address] [place] [address] Performed By: #### 5 7021-8 ####[facility] [id number] [place] [address] [place] WBC (Bld) [#/Vol] 3.96 10*3/uL Normal 3.70-11.00 [facility] Comment on above: Order Comment: Speci men Type: BLOOD SPECIMENOrdering Facility: [facility] Address: [address] [place] [address] Performed By: #### 5 7021-8 ####[facility] [id number] [place] [address] [place] CNPNon 01-16-2025 CNPN Normal [facility] CBC W Auto Differential pane l (Bld)on 01-15-2025 Basophils (Bld) [#/Vol] 0.03 10*3/uL Normal <0.11 [facility] Comment on above: Order Comment: Speci men Type: BLOOD SPECIMENOrdering Facility: [facility] Address: [address] [place] [address] Performed By: #### 5 7021-8 ####[facility] PARKWAYA [id number] [place] [address] [place] Basophils/100 WBC (Bld) 0.5 % Normal [facility] Comment on above: Order Comment: Speci men Type: BLOOD SPECIMENOrdering Facility: [facility] Address: [address] [place] [address] Performed By: #### 5 7021-8 ####[facility] [id number] [place] [address] [place] Differential cell count method Nom (Bld) Auto Normal [facility] Comment on above: Order Comment: Speci men Type: BLOOD SPECIMENOrdering Facility: [facility] Address: [address] [place] [address] Performed By: #### 5 7021-8 ####[facility] [id number] [place] [address] [place] Eosinophils (Bld) [#/Vol] 0.16 10*3/uL Normal <0.46 [facility] Comment on above: Order Comment: Speci men Type: BLOOD SPECIMENOrdering Facility: [facility] Address: [address] [place] [address] Performed By: #### 5 7021-8 ####[facility] [id number] [place] [address] [place] Eosinophils/100 WBC (Bld) 2.5 % Normal [facility] Comment on above: Order Comment: Speci men Type: BLOOD SPECIMENOrdering Facility: [facility] Address: [address] [place] [address] Performed By: #### 5 7021-8 ####[facility] [id number] [place] [address] [place] Erythrocyte distribution width (RBC) [Ratio] 13.2 % Normal 11.5-15.0 [facility] Comment on above: Order Comment: Speci men Type: BLOOD SPECIMENOrdering Facility: [facility] Address: [address] [place] [address] Performed By: #### 5 7021-8 ####[facility] [id number] [place] [address] [place] Hematocrit (Bld) [Volume fraction] 38.9 % Low 39.0-51.0 [facility] Comment on above: Order Comment: Speci men Type: BLOOD SPECIMENOrdering Facility: [facility] Address: [address] [place] [address] Performed By: #### 5 7021-8 ####[facility] [id number] [place] [address] [place] Hemoglobin (Bld) [Mass/Vol] 13.0 g/dL Normal 13.0-17.0 [facility] Comment on above: Order Comment: Speci men Type: BLOOD SPECIMENOrdering Facility: [facility] Address: [address] [place] [address] Performed By: #### 5 7021-8 ####[facility] MILLTOWNCLIA [id number] [place] [address] [place] Immature granulocytes (Bld) [#/Vol] 0.03 10*3/uL Normal <0.10 [facility] Comment on above: Order Comment: Speci men Type: BLOOD SPECIMENOrdering Facility: [facility] Address: [address] [place] [address] Performed By: #### 5 7021-8 ####[facility] MILLWNCLIA [id number] [place] [address] [place] Immature granulocytes/100 WBC (Bld) 0.5 % Normal [facility] Comment on above: Order Comment: Speci men Type: BLOOD SPECIMENOrdering Facility: [facility] Address: [address] [place] [address] Performed By: #### 5 7021-8 ####[facility] P[facility] RIDGEWNCLIA [id number] [place] [address] [place] Lymphocytes (Bld) [#/Vol] 0.89 10*3/uL Low 1.00-4.00 [facility] Comment on above: Order Comment: Speci men Type: BLOOD SPECIMENOrdering Facility: [facility] Address: [address] [place] [address] Performed By: #### 5 7021-8 ####[facility] MILLTOWNCLIA [id number] [place] [address] [place] Lymphocytes/100 WBC (Bld) 13.8 % Normal [facility] Comment on above: Order Comment: Speci men Type: BLOOD SPECIMENOrdering Facility: [facility] Address: [address] [place] [address] Performed By: #### 5 7021-8 ####[facility] MILLWNCLIA [id number] [place] [address] [place] MCH (RBC) [Entitic mass] 32.7 pg Normal 26.0-34.0 [facility] Comment on above: Order Comment: Speci men Type: BLOOD SPECIMENOrdering Facility: [facility] Address: [address] [place] [address] Performed By: #### 5 7021-8 ####[facility] [id number] [place] [address] [place] MCHC (RBC) [Mass/Vol] 33.4 g/dL Normal 30.5-36.0 [facility] Comment on above: Order Comment: Speci men Type: BLOOD SPECIMENOrdering Facility: [facility] Address: [address] [place] [address] Performed By: #### 5 7021-8 ####[facility] [id number] [place] [address] [place] MCV (RBC) [Entitic vol] 97.7 fL Normal 80.0-100.0 [facility] Comment on above: Order Comment: Speci men Type: BLOOD SPECIMENOrdering Facility: [facility] Address: [address] [place] [address] Performed By: #### 5 7021-8 ####[facility] [id number] [place] [address] [place] Monocytes (Bld) [#/Vol] 0.60 10*3/uL Normal <0.87 [facility] Comment on above: Order Comment: Speci men Type: BLOOD SPECIMENOrdering Facility: [facility] Address: [address] [place] [address] Performed By: #### 5 7021-8 ####[facility] [id number] [place] [address] [place] Monocytes/100 WBC (Bld) 9.3 % Normal [facility] Comment on above: Order Comment: Speci men Type: BLOOD SPECIMENOrdering Facility: [facility] Address: [address] [place] [address] Performed By: #### 5 7021-8 ####[facility]IT[facility] [id number] [place] [address] [place] Neutrophils (Bld) [#/Vol] 4.75 10*3/uL Normal 1.45-7.50 [facility] Comment on above: Order Comment: Speci men Type: BLOOD SPECIMENOrdering Facility: [facility] Address: [address] [place] [address] Performed By: #### 5 7021-8 ####[facility] [id number] [place] [address] [place] Neutrophils/100 WBC (Bld) 73.4 % Normal [facility] Comment on above: Order Comment: Speci men Type: BLOOD SPECIMENOrdering Facility: [facility] Address: [address] [place] [address] Performed By: #### 5 7021-8 ####[facility] [id number] [place] [address] [place] Nucleated RBC (Bld) [#/Vol] 10*3/uL Normal <0.01 [facility] Comment on above: Order Comment: Speci men Type: BLOOD SPECIMENOrdering Facility: [facility] Address: [address] [place] [address] Performed By: #### 5 7021-8 ####[facility] [id number] [place] [address] [place] Nucleated RBC/100 WBC (Bld) [Ratio] 0.0 /100 WBC Normal [facility] Comment on above: Order Comment: Speci men Type: BLOOD SPECIMENOrdering Facility: [facility] Address: [address] [place], [place] [address] Performed By: #### 5 7021-8 ####[facility] LORENANCCYNTHIAA [id number] [place] [address] [place] Platelet mean volume (Bld) [Entitic vol] 8.8 fL Low 9.0-12.7 [facility] Comment on above: Order Comment: Speci men Type: BLOOD SPECIMENOrdering Facility: [facility] Address: [address] [place], [place] [address] Performed By: #### 5 7021-8 ####[facility] [id number] [place] [address] [place] Platelets (Bld) [#/Vol] 256 10*3/uL Normal 150-400 [facility] Comment on above: Order Comment: Speci men Type: BLOOD SPECIMENOrdering Facility: [facility] Address: [address] [place], [place] [address] Performed By: #### 5 7021-8 ####[facility] [id number] [place] [address] [place] RBC (Bld) [#/Vol] 3.98 10*6/uL Low 4.20-6.00 [facility] Comment on above: Order Comment: Speci men Type: BLOOD SPECIMENOrdering Facility: [facility] Address: [address] [place], [place] [address] Performed By: #### 5 7021-8 ####[facility] [id number] [place] [address] [place] WBC (Bld) [#/Vol] 6.46 10*3/uL Normal 3.70-11.00 [facility] Comment on above: Order Comment: Speci men Type: BLOOD SPECIMENOrdering Facility: [facility] Address: [address] [place], [place] [address] Performed By: #### 5 7021-8 ####[facility] MILLWNCLIA [id number] [place] [address] [place] Comprehensive metabolic 2000 panelon 01-15-2025 Albumin [Mass/Vol] 3.9 g/dL Normal 3.9-4.9 [facility] Comment on above: Order Comment: Speci men Type: BLOOD SPECIMENOrdering Facility: [facility] Address: [address] [place] [address] Performed By: #### 2 4323-8 ####[facility] [id number] [place] [address] [place] ALP [Catalytic activity/Vol] 183 U/L High 38-113 [facility] Comment on above: Order Comment: Speci men Type: BLOOD SPECIMENOrdering Facility: [facility] Address: [address] [place] [address] Performed By: #### 2 4323-8 ####[facility] [id number] [place] [address] [place] ALT [Catalytic activity/Vol] 19 U/L Normal 10-54 [facility] Comment on above: Order Comment: Speci men Type: BLOOD SPECIMENOrdering Facility: [facility] Address: [address] [place] [address] Performed By: #### 2 4323-8 ####[facility] [id number] [place] [address] [place] Anion gap [Moles/Vol] 6 mmol/L Low 8-15 [facility] Comment on above: Order Comment: Speci men Type: BLOOD SPECIMENOrdering Facility: [facility] Address: [address] [place] [address] Performed By: #### 2 4323-8 ####[facility] [id number] [place] [address] [place] AST [Catalytic activity/Vol] 31 U/L Normal 14-40 [facility] Comment on above: Order Comment: Speci men Type: BLOOD SPECIMENOrdering Facility: [facility] Address: [address] [place] [address] Performed By: #### 2 4323-8 ####[facility] [id number] [place] [address] [place] Bilirubin [Mass/Vol] 1.1 mg/dL Normal 0.2-1.3 [facility] Comment on above: Order Comment: Speci men Type: BLOOD SPECIMENOrdering Facility: [facility] Address: [address] [place] [address] Performed By: #### 2 4323-8 ####[facility] [id number] [place] [address] [place] Calcium [Mass/Vol] 9.7 mg/dL Normal 8.5-10.2 [facility] Comment on above: Order Comment: Speci men Type: BLOOD SPECIMENOrdering Facility: [facility] Address: [address] [place] [address] Performed By: #### 2 4323-8 ####[facility] [id number] [place] [address] [place] Chloride [Moles/Vol] 102 mmol/L Normal 98-107 [facility] Comment on above: Order Comment: Speci men Type: BLOOD SPECIMENOrdering Facility: [facility] Address: [address] [place] [address] Performed By: #### 2 4323-8 ####[facility] [id number] [place] [address] [place] CO2 [Moles/Vol] 31 mmol/L High 22-30 [facility] Comment on above: Order Comment: Speci men Type: BLOOD SPECIMENOrdering Facility: [facility] Address: [address] [place] [address] Performed By: #### 2 4323-8 ####[facility] [id number] [place] [address] [place] Creatinine [Mass/Vol] 0.73 mg/dL Normal 0.73-1.22 [facility] Comment on above: Order Comment: Maury gama Type: BLOOD SPECIMENOrdering Facility: [facility] Address: [address] [place] [address] Performed By: #### 2 4323-8 ####[facility] [id number] [place] [address] [place] Creatinine and Glomerular filtration rate.predicted panel (S/P/Bld) 94 mL/min/1.73m??? Normal >=60 [facility] Comment on above: Order Comment: Maury gama Type: BLOOD SPECIMENOrdering Facility: [facility] Address: [address] [place] [address] Result Comment: Lulu mated Glomerular Filtration Rate (eGFR) is calculated using the 2020 CKD-EPI creatinine equation. This equation utilizes serum creatinine, sex, and age as parameters. The creatinine assay has traceable calibration to isotope dilution-mass spectrometry. Refer to KDIGO guidelines for clinical interpretation. In patients with unstable renal function, e.g. those with acute kidney injury, the eGFR may not accurately reflect actual GFR. Performed By: #### 2 4323-8 ####[facility] [id number] [place] [address] [place] Glucose [Mass/Vol] 122 mg/dL High 74-99 [facility] Comment on above: Order Comment: Maury gama Type: BLOOD SPECIMENOrdering Facility: [facility] Address: [address] [place] [address] Result Comment: The [place] [employer] (ADA) provides guidance for cutoff values for fasting glucose and random glucose. The ADA defines fasting as no caloric intake for at least 8 hours. Fasting plasma glucose results between 100 to 125 mg/dL indicate increased risk for diabetes (prediabetes).Fasting plasma glucose results greater than or equal to 126 mg/dL meet the criteria for diagnosis of diabetes. In the absence of unequivocal hyperglycemia, results should be confirmed by repeat testing. In a patient with classic symptoms of hyperglycemia or hyperglycemic crisis, random plasma glucose results greater than or equal to 200 mg/dL meet the criteria for diagnosis of diabetes.Reference: Standards of Medical Care in Diabetes 2016, [place] [employer]. Diabetes Care. 2016.39(Suppl 1). Performed By: #### 2 4323-8 ####[facility] MILLTOWNCLIA [id number] [place] [address] [place] Potassium [Moles/Vol] 4.5 mmol/L Normal 3.7-5.1 [facility] Comment on above: Order Comment: Speci men Type: BLOOD SPECIMENOrdering Facility: [facility] Address: [address] [place] [address] Performed By: #### 2 4323-8 ####[facility] RIDGEWSDLIA [id number] [place] [address] [place] Protein [Mass/Vol] 7.4 g/dL Normal 6.3-8.0 [facility] Comment on above: Order Comment: Ektai men Type: BLOOD SPECIMENOrdering Facility: [facility] Address: [address] [place] [address] Performed By: #### 2 4323-8 ####[facility] P[facility] RIDGEWSDLIA [id number] [place] [address] [place] Sodium [Moles/Vol] 139 mmol/L Normal 136-144 [facility] Comment on above: Order Comment: Speci men Type: BLOOD SPECIMENOrdering Facility: [facility] Address: [address] [place] [address] Performed By: #### 2 4323-8 ####[facility] RIDGEWNCLIA [id number] [place] [address] [place] Urea nitrogen [Mass/Vol] 18 mg/dL Normal 9-24 [facility] Comment on above: Order Comment: Speci men Type: BLOOD SPECIMENOrdering Facility: [facility] Address: [address] [place] [address] Performed By: #### 2 4323-8 ####[facility] MYA MILLTOWNCLIA [id number] [place] [address] [place] Cortis SerPl-mCncon 01-16-20 25 Cortisol [Mass/Vol] 10.0 ug/dL Normal 4.8-19.5 [facility] Comment on above: Order Comment: Speci men Type: BLOOD SPECIMENOrdering Facility: [facility] Address: [address] [place] [address] Result Comment: Prov ided reference range is from 6-10 AM sample collection time.Cortisol Reference Range: 6-10 AM = 4.8-19.5 ug/dL, 4-8 PM = 2.5-11.9 ug/dL Performed By: #### 2 143-6, 3016-3 ####[facility] LABCLIA [id number] [place] [id number] [place] TSH SerPl-aCncon 01-15-2025 TSH Qn 5.650 m[IU]/L High 0.270-4.200 [facility] Comment on above: Order Comment: Speci men Type: BLOOD SPECIMENOrdering Facility: [facility] Address: [address] [place] [address] Performed By: #### 2 143-6, 3016-3 ####[facility] LABCLIA [id number] [place] [id number] [place] CNPNon 01-09-2025 CNPN Normal [facility] Surgery Visit Reporton 01-02 Surgery Visit Report Normal [facility] CNOVSPon 12-31-2024 CNOVSP Normal [facility] CNPNon 12-31-2024 CNPN Normal [facility] 12 Lead EKGon 12-25-2024 12 Lead EKG Normal [facility] CNPNon 12-25-2024 CNPN Normal [facility] Discharge Instructionon 12-15 Discharge Instruction Normal [facility] Frozen Section (charge)on Frozen Section (charge) Normal [facility] Comment on above: Performed By: #### P FSC ####[facility] [id number] [place], [place], [address] MR/POSTOP.ANEon 12-25-2024 MR/POSTOP.ANE Normal [facility] MR/[id number] 12-25-2024 MR/POSTOPAN2 Normal [facility] Operative Reporton Operative Report Normal [facility] MR/PAT.ANEon 12-19-2024 MR/PAT.ANE Normal [facility] TSH DL <= 0.005 mIU/L QnOrde red By: Jose Miranda on 12-19-2024 Thyroid Stimulating Hormone (TSH) 6.410 uIU/mL High 0.300-4.200 [facility] Thyroid Stim Hormone (TSH)on 12-19-2024 TSH 6.410 uIU/mL High 0.300-4.200 [facility] Comment on above: Performed By: #### L 501.9520 ####[facility] [id number] [place], [place], [address] Colonoscopy Reporton Colonoscopy Report Normal [facility] MR/POSTOP.ANEon 12-18-2024 MR/POSTOP.ANE Normal [facility] MR/[id number] 12-18-2024 MR/POSTOPAN2 Normal [facility] MR/PAT.ANEon 12-17-2024 MR/PAT.ANE [facility] Surgery Visit Reporton 12-12 Surgery Visit Report Normal [facility] 25(OH)D3 SerPl-mCncon 2024 25-hydroxyvitamin D3 [Mass/Vol] 21.0 ng/mL Low 31.0-80.0 [facility] Comment on above: Order Comment: Speci men Type: BLOOD SPECIMENOrdering Facility: [facility] Address: [address] [place] [address] Performed By: #### 1 989-3 ####[facility] LABCLIA [id number] [place] [address] [place] CBC W Auto Differential pane l (Bld)on 12-10-2024 Basophils (Bld) [#/Vol] 0.06 10*3/uL [facility] Basophils/100 WBC (Bld) 1 % [facility] Differential cell count method Nom (Bld) Auto [facility] Eosinophils (Bld) [#/Vol] 0.16 10*3/uL [facility] Eosinophils/100 WBC (Bld) 2.7 % [facility] Erythrocyte distribution width (RBC) [Ratio] 13.7 % 11.5 - 15.0 % [facility] Hematocrit (Bld) [Volume fraction] 38.9 % Low 39.0 - 51.0 % [facility] Hemoglobin (Bld) [Mass/Vol] 13.1 g/dL 13.0 - 17.0 g/dL [facility] Immature granulocytes (Bld) [#/Vol] 0.03 10*3/uL [facility] Immature granulocytes/100 WBC (Bld) 0.5 % [facility] Interpretation and review of laboratory results Abnormal [facility] Lymphocytes (Bld) [#/Vol] 1.24 10*3/uL [facility] Lymphocytes/100 WBC (Bld) 20.7 % [facility] MCH (RBC) [Entitic mass] 33.1 pg 26.0 - 34.[address] [facility] MCHC (RBC) [Mass/Vol] 33.7 g/dL 30.5 - 36.0 g/dL [facility] MCV (RBC) [Entitic vol] 98.2 fL 80.0 - 100.[address] [facility] Monocytes (Bld) [#/Vol] 0.67 10*3/uL [facility] Monocytes/100 WBC (Bld) 11.2 % [facility] Neutrophils (Bld) [#/Vol] 3.82 10*3/uL [facility] Neutrophils/100 WBC (Bld) 63.9 % [facility] Nucleated RBC (Bld) [#/Vol] [facility] Nucleated RBC/100 WBC (Bld) [Ratio] 0 % /[address] [facility] Platelet mean volume (Bld) [Entitic vol] 9.7 fL 9.0 - 12.[address] [facility] Platelets (Bld) [#/Vol] 305 10*3/uL [facility] RBC (Bld) [#/Vol] 3.96 10*6/uL Low 4.20 - 6.0 0 m/uL [facility] WBC (Bld) [#/Vol] 5.98 10*3/uL [facility] Basophils (Bld) [#/Vol] 0.06 10*3/uL Normal <0.11 [facility] Comment on above: Order Comment: Speci men Type: BLOOD SPECIMENOrdering Facility: [facility] Address: [address] [place] [address] Performed By: #### 5 7021-8 ####[facility] LABCLIA [id number] [place] [address] [place] Basophils/100 WBC (Bld) 1.0 % Normal [facility] Comment on above: Order Comment: Speci men Type: BLOOD SPECIMENOrdering Facility: [facility] Address: [address] [place] [address] Performed By: #### 5 7021-8 ####[facility] LABCLIA [id number] [place] [address] [place] Differential cell count method Nom (Bld) Auto Normal [facility] Comment on above: Order Comment: Speci men Type: BLOOD SPECIMENOrdering Facility: [facility] Address: [address] [place] [address] Performed By: #### 5 7021-8 ####[facility] LABIA [id number] [place] [address] [place] Eosinophils (Bld) [#/Vol] 0.16 10*3/uL Normal <0.46 [facility] Comment on above: Order Comment: Speci men Type: BLOOD SPECIMENOrdering Facility: [facility] Address: [address] [place] [address] Performed By: #### 5 7021-8 ####[facility] LABCLIA [id number] [place] [address] [place] Eosinophils/100 WBC (Bld) 2.7 % Normal [facility] Comment on above: Order Comment: Speci men Type: BLOOD SPECIMENOrdering Facility: [facility] Address: [address] [place] [address] Performed By: #### 5 7021-8 ####[facility] LABCLIA [id number] [place] [address] [place] Erythrocyte distribution width (RBC) [Ratio] 13.7 % Normal 11.5-15.0 [facility] Comment on above: Order Comment: Speci men Type: BLOOD SPECIMENOrdering Facility: [facility] Address: [address] [place] [address] Performed By: #### 5 7021-8 ####[facility] LABIA [id number] [place] [address] [place] Hematocrit (Bld) [Volume fraction] 38.9 % Low 39.0-51.0 [facility] Comment on above: Order Comment: Speci men Type: BLOOD SPECIMENOrdering Facility: [facility] Address: [address] [place] [address] Performed By: #### 5 7021-8 ####[facility] LABCLIA [id number] [place] [address] [place] Hemoglobin (Bld) [Mass/Vol] 13.1 g/dL Normal 13.0-17.0 [facility] Comment on above: Order Comment: Speci men Type: BLOOD SPECIMENOrdering Facility: [facility] Address: [address] [place] [address] Performed By: #### 5 7021-8 ####[facility] LABIA [id number] [address] [id number] [address] [place] Immature granulocytes (Bld) [#/Vol] 0.03 10*3/uL Normal <0.10 [facility] Comment on above: Order Comment: Speci men Type: BLOOD SPECIMENOrdering Facility: [facility] Address: [address] [place] [address] Performed By: #### 5 7021-8 ####[facility] LABCLIA [id number] [place] [address] [place] Immature granulocytes/100 WBC (Bld) 0.5 % Normal [facility] Comment on above: Order Comment: Speci men Type: BLOOD SPECIMENOrdering Facility: [facility] Address: [address] [place] [address] Performed By: #### 5 7021-8 ####[facility] LABCLIA [id number] [place] [address] [place] Lymphocytes (Bld) [#/Vol] 1.24 10*3/uL Normal 1.00-4.00 [facility] Comment on above: Order Comment: Speci men Type: BLOOD SPECIMENOrdering Facility: [facility] Address: [address] [place] [address] Performed By: #### 5 7021-8 ####[facility] LABCLIA [id number] [place] [address] [place] Lymphocytes/100 WBC (Bld) 20.7 % Normal [facility] Comment on above: Order Comment: Speci men Type: BLOOD SPECIMENOrdering Facility: [facility] Address: [address] [place] [address] Performed By: #### 5 7021-8 ####[facility] LABCLIA [id number] [place] [address] [place] MCH (RBC) [Entitic mass] 33.1 pg Normal 26.0-34.0 [facility] Comment on above: Order Comment: Speci men Type: BLOOD SPECIMENOrdering Facility: [facility] Address: [address] [place] [address] Performed By: #### 5 7021-8 ####[facility] LABCLIA [id number] [place] [address] [place] MCHC (RBC) [Mass/Vol] 33.7 g/dL Normal 30.5-36.0 [facility] Comment on above: Order Comment: Speci men Type: BLOOD SPECIMENOrdering Facility: [facility] Address: [address] [place] [address] Performed By: #### 5 7021-8 ####[facility] LABCLIA [id number] [place] [address] [place] MCV (RBC) [Entitic vol] 98.2 fL Normal 80.0-100.0 [facility] Comment on above: Order Comment: Speci men Type: BLOOD SPECIMENOrdering Facility: [facility] Address: [address] [place] [address] Performed By: #### 5 7021-8 ####[facility] LABIA [id number] [place] [address] [place] Monocytes (Bld) [#/Vol] 0.67 10*3/uL Normal <0.87 [facility] Comment on above: Order Comment: Speci men Type: BLOOD SPECIMENOrdering Facility: [facility] Address: [address] [place] [address] Performed By: #### 5 7021-8 ####[facility] LABCLIA [id number] [place] [address] [place] Monocytes/100 WBC (Bld) 11.2 % Normal [facility] Comment on above: Order Comment: Speci men Type: BLOOD SPECIMENOrdering Facility: [facility] Address: [address] [place] [address] Performed By: #### 5 7021-8 ####[facility] LABCLIA [id number] [place] [address] [place] Neutrophils (Bld) [#/Vol] 3.82 10*3/uL Normal 1.45-7.50 [facility] Comment on above: Order Comment: Speci men Type: BLOOD SPECIMENOrdering Facility: [facility] Address: [address] [place] [address] Performed By: #### 5 7021-8 ####[facility] LABCLIA [id number] [place] [address] [place] Neutrophils/100 WBC (Bld) 63.9 % Normal [facility] Comment on above: Order Comment: Speci men Type: BLOOD SPECIMENOrdering Facility: [facility] Address: [address] [place] [address] Performed By: #### 5 7021-8 ####[facility] LABCLIA [id number] [place] [address] [place] Nucleated RBC (Bld) [#/Vol] 10*3/uL Normal <0.01 [facility] Comment on above: Order Comment: Speci men Type: BLOOD SPECIMENOrdering Facility: [facility] Address: [address] [place] [address] Performed By: #### 5 7021-8 ####[facility] LABCLIA [id number] [place] [address] [place] Nucleated RBC/100 WBC (Bld) [Ratio] 0.0 /100 WBC Normal [facility] Comment on above: Order Comment: Speci men Type: BLOOD SPECIMENOrdering Facility: [facility] Address: [address] [place] [address] Performed By: #### 5 7021-8 ####[facility] LABCLIA [id number] [place] [address] [place] Platelet mean volume (Bld) [Entitic vol] 9.7 fL Normal 9.0-12.7 [facility] Comment on above: Order Comment: Speci men Type: BLOOD SPECIMENOrdering Facility: [facility] Address: [address] [place] [address] Performed By: #### 5 7021-8 ####[facility] LABCLIA [id number] [place] [address] [place] Platelets (Bld) [#/Vol] 305 10*3/uL Normal 150-400 [facility] Comment on above: Order Comment: Speci men Type: BLOOD SPECIMENOrdering Facility: [facility] Address: [address] [place] [address] Performed By: #### 5 7021-8 ####[facility] LABIA [id number] [place] [address] [place] RBC (Bld) [#/Vol] 3.96 10*6/uL Low 4.20-6.00 [facility] Comment on above: Order Comment: Speci men Type: BLOOD SPECIMENOrdering Facility: [facility] Address: [address] [place] [address] Performed By: #### 5 7021-8 ####[facility] LABIA [id number] [place] [address] [place] WBC (Bld) [#/Vol] 5.98 10*3/uL Normal 3.70-11.00 [facility] Comment on above: Order Comment: Speci men Type: BLOOD SPECIMENOrdering Facility: [facility] Address: [address] [place] [address] Performed By: #### 5 7021-8 ####[facility] LABIA [id number] [place] [address] [place] CNOVon 12-10-2024 CNOV Normal [facility] CNPNon 12-10-2024 CNPN Normal [facility] Comprehensive metabolic 2000 panelon 12-10-2024 Albumin [Mass/Vol] 3.9 g/dL Normal 3.9-4.9 [facility] Comment on above: Order Comment: Speci men Type: BLOOD SPECIMENOrdering Facility: [facility] Address: [address] [place] [address] Performed By: #### 3 024-7, 46642-0, 16172-6, 6-3 ####[facility] LABCLIA [id number] [address] [address] [place] ALP [Catalytic activity/Vol] 265 U/L High 38-113 [facility] Comment on above: Order Comment: Speci men Type: BLOOD SPECIMENOrdering Facility: [facility] Address: [address] [place] [address] Performed By: #### 3 024-7, 61136-3, 71338-1, 6-3 ####[facility] LABCLIA [id number] [place] [address] [place] ALT [Catalytic activity/Vol] 36 U/L Normal 10-54 [facility] Comment on above: Order Comment: Speci men Type: BLOOD SPECIMENOrdering Facility: [facility] Address: [address] [place] [address] Performed By: #### 3 024-7, 95116-8, 23962-0, 6-3 ####[facility] LABCLIA [id number] [place] [address] [place] Anion gap [Moles/Vol] 11 mmol/L Normal 8-15 [facility] Comment on above: Order Comment: Speci men Type: BLOOD SPECIMENOrdering Facility: [facility] Address: [address] [place] [address] Performed By: #### 3 024-7, 14049-2, 75030-7, 6-3 ####[facility] LABCLIA [id number] [address] [address] [place] AST [Catalytic activity/Vol] 45 U/L High 14-40 [facility] Comment on above: Order Comment: Speci men Type: BLOOD SPECIMENOrdering Facility: [facility] Address: [address] [place], [place] [address] Performed By: #### 3 024-7, 59738-5, 39021-4, 6-3 ####[facility] LABCLIA [id number] [facility] [address] [address] [place] Bilirubin [Mass/Vol] 1.4 mg/dL High 0.2-1.3 [facility] Comment on above: Order Comment: Speci men Type: BLOOD SPECIMENOrdering Facility: [facility] Address: [address] [place] [address] Performed By: #### 3 024-7, 11433-7, 40949-5, 6-3 ####[facility] LABCLIA [id number] [address] [address] [place] Calcium [Mass/Vol] 9.4 mg/dL Normal 8.5-10.2 [facility] Comment on above: Order Comment: Speci men Type: BLOOD SPECIMENOrdering Facility: [facility] Address: [address] [place], [place] [address] Performed By: #### 3 024-7, 99866-3, 34600-9, 6-3 ####[facility] LABCLIA [id number] [address] [address] [place] Chloride [Moles/Vol] 99 mmol/L Normal 98-107 [facility] Comment on above: Order Comment: Speci men Type: BLOOD SPECIMENOrdering Facility: [facility] Address: [address] [place], [place] [address] Performed By: #### 3 024-7, 63174-6, 64159-7, 6-3 ####[facility] LABCLIA [id number] [facility] [address] [address] [place] CO2 [Moles/Vol] 27 mmol/L Normal 22-30 [facility] Comment on above: Order Comment: Speci men Type: BLOOD SPECIMENOrdering Facility: [facility] Address: [address] [place] [address] Performed By: #### 3 024-7, 41509-3, 58549-6, 6-3 ####[facility] LABIA [id number] [address] [address] [place] Creatinine [Mass/Vol] 0.76 mg/dL Normal 0.73-1.22 [facility] Comment on above: Order Comment: Speci men Type: BLOOD SPECIMENOrdering Facility: [facility] Address: [address] [place] [address] Performed By: #### 3 024-7, 52779-3, 51066-3, 6-3 ####[facility] LABIA [id number] [place] [address] [place] Creatinine and Glomerular filtration rate.predicted panel (S/P/Bld) 93 mL/min/1.73m??? Normal >=60 [facility] Comment on above: Order Comment: Speci men Type: BLOOD SPECIMENOrdering Facility: [facility] Address: [address] [place] [address] Result Comment: Lulu mated Glomerular Filtration Rate (eGFR) is calculated using the 2020 CKD-EPI creatinine equation. This equation utilizes serum creatinine, sex, and age as parameters. The creatinine assay has traceable calibration to isotope dilution-mass spectrometry. Refer to KDIGO guidelines for clinical interpretation. In patients with unstable renal function, e.g. those with acute kidney injury, the eGFR may not accurately reflect actual GFR. Performed By: #### 3 024-7, 60470-1, 76338-2, 6-3 ####[facility] LABIA [id number] [address] [address] [place] Glucose [Mass/Vol] 76 mg/dL Normal 74-99 [facility] Comment on above: Order Comment: Speci men Type: BLOOD SPECIMENOrdering Facility: [facility] Address: [address] [place] [address] Result Comment: The [place] Diabetes Association (ADA) provides guidance for cutoff values for fasting glucose and random glucose. The ADA defines fasting as no caloric intake for at least 8 hours. Fasting plasma glucose results between 100 to 125 mg/dL indicate increased risk for diabetes (prediabetes).Fasting plasma glucose results greater than or equal to 126 mg/dL meet the criteria for diagnosis of diabetes. In the absence of unequivocal hyperglycemia, results should be confirmed by repeat testing. In a patient with classic symptoms of hyperglycemia or hyperglycemic crisis, random plasma glucose results greater than or equal to 200 mg/dL meet the criteria for diagnosis of diabetes.Reference: Standards of Medical Care in Diabetes 2016, [place] [employer] Association. Diabetes Care. 2016.39(Suppl 1). Performed By: #### 3 024-7, 31612-4, 66111-9, 6-3 ####[facility] LABCLIA [id number] [place] [address] [place] Potassium [Moles/Vol] 4.7 mmol/L Normal 3.7-5.1 [facility] Comment on above: Order Comment: Speci men Type: BLOOD SPECIMENOrdering Facility: [facility] Address: [address] [place] [address] Performed By: #### 3 024-7, 46383-2, 83339-7, 6-3 ####[facility] [id number] [place] [address] [place] Protein [Mass/Vol] 7.4 g/dL Normal 6.3-8.0 [facility] Comment on above: Order Comment: Speci men Type: BLOOD SPECIMENOrdering Facility: [facility] Address: [address] [place], [place] [address] Performed By: #### 3 024-7, 26840-8, 58317-9, 6-3 ####[facility] LABIA [id number] [place] [address] [place] Sodium [Moles/Vol] 137 mmol/L Normal 136-144 [facility] Comment on above: Order Comment: Speci men Type: BLOOD SPECIMENOrdering Facility: [facility] Address: [address] [place] [address] Performed By: #### 3 024-7, 55946-5, 14558-5, 3016-3 ####[facility] LABCLIA [id number] [address] [address] [place] Urea nitrogen [Mass/Vol] 16 mg/dL Normal - [facility] Comment on above: Order Comment: Speci men Type: BLOOD SPECIMENOrdering Facility: [facility] Address: [address] [place] [address] Performed By: #### 3 024-7, 49937-2, 20764-3, 3016-3 ####[facility] LABIA [id number] [place] [address] [place] HbA1c (Bld)on 12-10-2024 Average glucose Estimated from glycated hemoglobin (Bld) [Mass/Vol] 111 mg/dL Normal [facility] Comment on above: Order Comment: Maury men Type: BLOOD SPECIMENOrdering Facility: [facility] Address: [address] [place] [address] Result Comment: eAG: (Estimated average glucose) is a calculated value from HgbA1c and is textile machinery sales representative of the average blood glucose level in the last 2-3 month period. Performed By: #### 5 5454-3 ####[facility] LABIA [id number] [place] [address] [place] HbA1c (Bld) [Mass fraction] 5.5 % Normal 4.3-5.6 [facility] Comment on above: Order Comment: Speci men Type: BLOOD SPECIMENOrdering Facility: [facility] Address: [address] [place] [address] Result Comment: [place] Diabetes Association guidelines indicate that patients with HgbA1c in the range 5.7-6.4% are at increased risk for development of diabetes, and intervention by lifestyle modification may be beneficial. HgbA1c greater or equal to 6.5% is considered diagnostic of diabetes. Performed By: #### 5 5454-3 ####[facility] LABCLIA [id number] [address] [address] [place] Lipid 1996 panelon 5 Cholesterol [Mass/Vol] 199 mg/dL Normal <200 [facility] Comment on above: Order Comment: Speci men Type: BLOOD SPECIMENOrdering Facility: [facility] Address: [address] [place] [address] Result Comment: <200 mg/dL, Desirable 200-239 mg/dL, Borderline high>239 mg/dL, High Performed By: #### 3 024-7, 84126-4, 17789-1, 3016-3 ####[facility] LABCLIA [id number] [address] [place] Cholesterol in HDL [Mass/Vol] 70 mg/dL Normal >39 [facility] Comment on above: Order Comment: Speci men Type: BLOOD SPECIMENOrdering Facility: [facility] Address: [address] [place] [address] Result Comment: 40-5 9 mg/dL, Acceptable>59 mg/dL, High: Negative risk factor for coronary heart disease<40 mg/dL, Low: Positive risk factor for coronary heart disease Performed By: #### 3 024-7, 22673-5, 06748-0, 3016-3 ####[facility] LABCLIA [id number] [place] [address] [place] Cholesterol in LDL [Mass/Vol] 117 mg/dL High <100 [facility] Comment on above: Order Comment: Speci men Type: BLOOD SPECIMENOrdering Facility: [facility] Address: [address] [place] [address] Result Comment: <100 mg/dL, Optimal 100-129 mg/dL, Near optimal/above optimal 130-159 mg/dL, Borderline high 160-189 mg/dL, High>189 mg/dL, Very highSecondary prevention optimal LDL Cholesterol levels are recommended to be < 70 mg/dL Performed By: #### 3 024-7, 08873-8, 53710-5, 3016-3 ####[facility] LABIA [id number] [place] [address] [place] Cholesterol in LDL/Cholesterol in HDL [Mass ratio] 1.67 {ratio} Normal <2.54 [facility] Comment on above: Order Comment: Speci men Type: BLOOD SPECIMENOrdering Facility: [facility] Address: [address] [place] [address] Result Comment: Refe moisés:1. National Cholesterol Education Program ATP III Guideline At-A-Glance Quick Desk Reference: National Heart, Lung, and Blood [place]. National Institutes of Health. 2001: NIH Publication No. 01-3305.2. An International Atherosclerosis Society position paper: global recommendations for the management of dyslipidemia: executive summary, Atherosclerosis. 2014: 232(2):410-413. Performed By: #### 3 024-7, 90154-1, 37401-6, 3016-3 ####[facility] LABIA [id number] [place] [id number] [place] Cholesterol in VLDL [Mass/Vol] 12 mg/dL Normal <30 [facility] Comment on above: Order Comment: Speci men Type: BLOOD SPECIMENOrdering Facility: [facility] Address: [address] [place] [address] Performed By: #### 3 024-7, 02428-4, 01064-3, 3016-3 ####[facility] LABIA [id number] [place] [id number] [place] Cholesterol non HDL [Mass/Vol] 129 mg/dL Normal <130 [facility] Comment on above: Order Comment: Speci men Type: BLOOD SPECIMENOrdering Facility: [facility] Address: [address] [place] [address] Result Comment: <130 mg/dL, Optimal 130-159 mg/dL, Near optimal/above optimal 160-189 mg/dL, Borderline high 190-219 mg/dL, High>219 mg/dL, Very highSecondary prevention optimal non HDL Cholesterol levels are recommended to be <100 mg/dL Performed By: #### 3 024-7, 87277-7, 14744-5, 3016-3 ####[facility] LABCLIA [id number] [address] [place] [address] [place] Cholesterol.total/Chol esterol in HDL [Mass ratio] 2.84 {ratio} Normal <5.10 [facility] Comment on above: Order Comment: Speci men Type: BLOOD SPECIMENOrdering Facility: [facility] Address: [address] [place] [address] Performed By: #### 3 024-7, 07210-3, 61851-7, 3016-3 ####[facility] LABIA [id number] [address], [address] [place] FASTING TIME 11 hrs Normal [facility] Comment on above: Order Comment: Speci men Type: BLOOD SPECIMENOrdering Facility: [facility] Address: [address] [place] [address] Performed By: #### 3 024-7, 52522-4, 59165-1, 3016-3 ####[facility] LABIA [id number] [address], [facility] [place] Triglyceride [Mass/Vol] 61 mg/dL Normal <150 [facility] Comment on above: Order Comment: Speci men Type: BLOOD SPECIMENOrdering Facility: [facility] Address: [address] [place] [address] Result Comment: <150 mg/dL, Normal 150-199 mg/dL, Borderline high 200-499 mg/dL, High>499 mg/dL, Very high Performed By: #### 3 024-7, 29890-5, 98303-3, 3016-3 ####[facility] LABCLIA [id number] [address] [place] [address] [place] PSA/PROSTATE SPECIFIC ANTIGE N SCREENINGon 12-10-2024 Interpretation and review of laboratory results Normal [facility] Prostate specific Ag [Mass/Vol] 0.92 ng/[facility] [facility] Comment on above: Total PSA test metho dology used is the Electrochemiluminescence Immunoassay by [employer]. Total PSA values by differing methodologies cannot be interchanged. [facility] Prostate specific Ag [Mass/Vol] 0.92 ng/mL Normal <2.60 [facility] Comment on above: Order Comment: Speci men Type: BLOOD SPECIMENOrdering Facility: [facility] Address: [address] [place] [address] Result Comment: Tota l PSA test methodology used is the Electrochemiluminescence Immunoassay by [employer]. Total PSA values by differing methodologies cannot be interchanged. Performed By: #### P SAS1 ####[facility] LABIA [id number] [place] [address] [place] T4 Free SerPl-mCncon 025 Free T4 [Mass/Vol] 1.4 ng/dL Normal 0.9-1.7 [facility] Comment on above: Order Comment: Speci men Type: BLOOD SPECIMENOrdering Facility: [facility] Address: [address] [place] [address] Performed By: #### 3 024-7, 75096-1, 48159-5, 3016-3 ####[facility] LABIA [id number] [place] [address] [place] TSH SerPl-aCncon 12-10-2024 TSH Qn 3.640 m[IU]/L Normal 0.270-4.200 [facility] Comment on above: Order Comment: Speci men Type: BLOOD SPECIMENOrdering Facility: [facility] Address: [address] [place] [address] Performed By: #### 3 024-7, 64171-3, 03717-7, 3016-3 ####[facility] LABIA [id number] [place] [address] [place] Vit B12 SerPl-mCncon 025 Cobalamin (Vitamin B12) [Mass/Vol] pg/mL High 232-1245 [facility] Comment on above: Order Comment: Speci men Type: BLOOD SPECIMENOrdering Facility: [facility] Address: [address] [place] [address] Performed By: #### 2 132-9 ####[facility] LABCLIA [id number] [address] [address] [place] Nursing Noteon 12-05-2024 Nursing Note Specimens verified w /FAYE Barone & sent with her to Cytology lab Normal [facility] Culture, Blood (WB)on 2024 CUB Normal [facility] Comment on above: Performed By: #### M 200.1000 ####[facility] [address] [place], [address] CBC W/Diff, Automatedon Absolute Neut Normal 2.0-7.7 [facility] Comment on above: Result Comment: Canc elled via OM: Order cancelled - Patient discharged Performed By: #### L 500.3400, L100.0100 ####[facility] [address] [place], [address] HCT Normal 40-54 [facility] Comment on above: Result Comment: Canc elled via OM: Order cancelled - Patient discharged Performed By: #### L 500.3400, L100.0100 ####[facility] [address] [place], [address] HGB Normal 13.0-16.5 [facility] Comment on above: Result Comment: Canc elled via OM: Order cancelled - Patient discharged Performed By: #### L 500.3400, L100.0100 ####[facility] [address] [place], [address] MCH Normal 27.0-32.0 [facility] Comment on above: Result Comment: Canc elled via OM: Order cancelled - Patient discharged Performed By: #### L 500.3400, L100.0100 ####[facility] [address] [place], [address] MCHC Normal 32-36 [facility] Comment on above: Result Comment: Canc elled via OM: Order cancelled - Patient discharged Performed By: #### L 500.3400, L100.0100 ####[facility] [address] [place], [address] MCV Normal 80-94 [facility] Comment on above: Result Comment: Canc elled via OM: Order cancelled - Patient discharged Performed By: #### L 500.3400, L100.0100 ####[facility] [address] [place], [address] NEUT% Normal 47-70 [facility] Comment on above: Result Comment: Canc elled via OM: Order cancelled - Patient discharged Performed By: #### L 500.3400, L100.0100 ####[facility] [address] [place], [address] PLT Normal 150-450 [facility] Comment on above: Result Comment: Canc elled via OM: Order cancelled - Patient discharged Performed By: #### L 500.3400, L100.0100 ####[facility] [address] [place], [address] RBC Normal 4.6-6.2 [facility] Comment on above: Result Comment: Canc elled via OM: Order cancelled - Patient discharged Performed By: #### L 500.3400, L100.0100 ####[facility] [address] [place], [address] RDW CV Normal 11.6-14.6 [facility] Comment on above: Result Comment: Canc elled via OM: Order cancelled - Patient discharged Performed By: #### L 500.3400, L100.0100 ####[facility] [address] [place], [address] RDW SD Normal 35.1-43.9 [facility] Comment on above: Result Comment: Canc elled via OM: Order cancelled - Patient discharged Performed By: #### L 500.3400, L100.0100 ####[facility] [address] [place], [address] WBC Normal 4.4-11.0 [facility] Comment on above: Result Comment: Canc elled via OM: Order cancelled - Patient discharged Performed By: #### L 500.3400, L100.0100 ####[facility] [address] [place], [address] Liver Profileon 11-22-2024 ALB Normal 3.2-5.0 [facility] Comment on above: Result Comment: Canc elled via OM: Order cancelled - Patient discharged Performed By: #### L 500.3400, L100.0100 ####[facility] [address] [place], [address] ALK P Normal 45-117 [facility] Comment on above: Result Comment: Canc elled via OM: Order cancelled - Patient discharged Performed By: #### L 500.3400, L100.0100 ####[facility] [address] [place], [address] ALT Normal 16-61 [facility] Comment on above: Result Comment: Canc elled via OM: Order cancelled - Patient discharged Performed By: #### L 500.3400, L100.0100 ####[facility] [address] [place], [address] AST Normal 15-37 [facility] Comment on above: Result Comment: Canc elled via OM: Order cancelled - Patient discharged Performed By: #### L 500.3400, L100.0100 ####[facility] [address] [place], [address] D BILI Normal 0.00-0.30 [facility] Comment on above: Result Comment: Canc elled via OM: Order cancelled - Patient discharged Performed By: #### L 500.3400, L100.0100 ####[facility] [address] [place], [address] T BILI Normal 0.20-1.00 [facility] Comment on above: Result Comment: Canc elled via OM: Order cancelled - Patient discharged Performed By: #### L 500.3400, L100.0100 ####[facility] [address] [place], [address] T PROT Normal 6.4-8.2 [facility] Comment on above: Result Comment: Canc elled via OM: Order cancelled - Patient discharged Performed By: #### L 500.3400, L100.0100 ####[facility] [address] [place], [address] CBC W/Diff, Automatedon 02-0 5-2024 Absolute Neut Normal 2.0-7.7 [facility] Comment on above: Result Comment: Canc elled via OM: Order cancelled - Patient discharged Performed By: #### L 500.3400, L100.0100 ####[facility] [address] [place], [address] HCT Normal 40-54 [facility] Comment on above: Result Comment: Canc elled via OM: Order cancelled - Patient discharged Performed By: #### L 500.3400, L100.0100 ####[facility] [address] [place], [address] HGB Normal 13.0-16.5 [facility] Comment on above: Result Comment: Canc elled via OM: Order cancelled - Patient discharged Performed By: #### L 500.3400, L100.0100 ####[facility] [address] [place], [address] MCH Normal 27.0-32.0 [facility] Comment on above: Result Comment: Canc elled via OM: Order cancelled - Patient discharged Performed By: #### L 500.3400, L100.0100 ####[facility] [address] [place], [address] MCHC Normal 32-36 [facility] Comment on above: Result Comment: Canc elled via OM: Order cancelled - Patient discharged Performed By: #### L 500.3400, L100.0100 ####[facility] [address] [place], [address] MCV Normal 80-94 [facility] Comment on above: Result Comment: Canc elled via OM: Order cancelled - Patient discharged Performed By: #### L 500.3400, L100.0100 ####[facility] [address] [place], [address] NEUT% Normal 47-70 [facility] Comment on above: Result Comment: Canc elled via OM: Order cancelled - Patient discharged Performed By: #### L 500.3400, L100.0100 ####[facility] [address] [place], [address] PLT Normal 150-450 [facility] Comment on above: Result Comment: Canc elled via OM: Order cancelled - Patient discharged Performed By: #### L 500.3400, L100.0100 ####[facility] [address] [place], [address] RBC Normal 4.6-6.2 [facility] Comment on above: Result Comment: Canc elled via OM: Order cancelled - Patient discharged Performed By: #### L 500.3400, L100.0100 ####[facility] [address] [place], [address] RDW CV Normal 11.6-14.6 [facility] Comment on above: Result Comment: Canc elled via OM: Order cancelled - Patient discharged Performed By: #### L 500.3400, L100.0100 ####[facility] [address] [place], [address] RDW SD Normal 35.1-43.9 [facility] Comment on above: Result Comment: Canc elled via OM: Order cancelled - Patient discharged Performed By: #### L 500.3400, L100.0100 ####[facility] [address] [place], [address] WBC Normal 4.4-11.0 [facility] Comment on above: Result Comment: Canc elled via OM: Order cancelled - Patient discharged Performed By: #### L 500.3400, L100.0100 ####[facility] [address] [place], [address] Liver Profileon 11-21-2024 ALB Normal 3.2-5.0 [facility] Comment on above: Result Comment: Canc elled via OM: Order cancelled - Patient discharged Performed By: #### L 500.3400, L100.0100 ####[facility] [address] [place], [address] ALK P Normal 45-117 [facility] Comment on above: Result Comment: Canc elled via OM: Order cancelled - Patient discharged Performed By: #### L 500.3400, L100.0100 ####[facility] [address] [place], [address] ALT Normal 16-61 [facility] Comment on above: Result Comment: Canc elled via OM: Order cancelled - Patient discharged Performed By: #### L 500.3400, L100.0100 ####[facility] [address] [place], [address] AST Normal 15-37 [facility] Comment on above: Result Comment: Canc elled via OM: Order cancelled - Patient discharged Performed By: #### L 500.3400, L100.0100 ####[facility] [address] [place], [address] D BILI Normal 0.00-0.30 [facility] Comment on above: Result Comment: Canc elled via OM: Order cancelled - Patient discharged Performed By: #### L 500.3400, L100.0100 ####[facility] [address] [place], [address] T BILI Normal 0.20-1.00 [facility] Comment on above: Result Comment: Canc elled via OM: Order cancelled - Patient discharged Performed By: #### L 500.3400, L100.0100 ####[facility] [address] [place], [address] T PROT Normal 6.4-8.2 [facility] Comment on above: Result Comment: Canc elled via OM: Order cancelled - Patient discharged Performed By: #### L 500.3400, L100.0100 ####[facility] [address] [place], [address] Absolute neutrophil countOrd ered By: Camilo Upton on 11-20-2024 Neutrophils (Bld) [#/Vol] 14.9 10*3/uL High 2.0-7.7 [facility] Basic Metabolic Profile (BMP )on 11-20-2024 BUN/CRE 30.1 RATIO High 10-20 [facility] Comment on above: Performed By: #### L 501.5200, L100.0100, L500.2500, L501.2300, L500.3400 ####[facility] [address] [place], [address] CA,Total 8.8 mg/dL Normal 8.5-10.1 [facility] Comment on above: Performed By: #### L 501.5200, L100.0100, L500.2500, L501.2300, L500.3400 ####[facility] [address] [place], [address] Chloride [Moles/Vol] 108 mmol/L High 98-107 [facility] Comment on above: Performed By: #### L 501.5200, L100.0100, L500.2500, L501.2300, L500.3400 ####[facility] [address] [place], [address] CO2 [Moles/Vol] 23.0 mmol/L Normal 21.0-32.0 [facility] Comment on above: Performed By: #### L 501.5200, L100.0100, L500.2500, L501.2300, L500.3400 ####[facility] [address] [place], [address] Creatinine [Mass/Vol] 0.66 mg/dL Low 0.70-1.30 [facility] Comment on above: Result Comment: The validity of the calculated GFR GFRAA in patients over70 years has not been determined. Clinical correlation isessential. Performed By: #### L 501.5200, L100.0100, L500.2500, L501.2300, L500.3400 ####[facility] [address] [place], [address] ECRCL 74.81 ml/min Normal [facility] Comment on above: Performed By: #### L 501.5200, L100.0100, L500.2500, L501.2300, L500.3400 ####[facility] [address] [place], [address] EST GFR - AA 150 mL/min Normal >60 [facility] Comment on above: Result Comment: Afri can [place] GFR Calc Performed By: #### L 501.5200, L100.0100, L500.2500, L501.2300, L500.3400 ####[facility] [address] [place], [address] GAP 7 Normal 5-15 [facility] Comment on above: Performed By: #### L 501.5200, L100.0100, L500.2500, L501.2300, L500.3400 ####[facility] [address] [place], [address] GFR/1.73 sq M.predicted among non-blacks MDRD (S/P/Bld) [Vol rate/Area] 124 mL/min/{1.73_m2} Normal >60 [facility] Comment on above: Result Comment: Non- GFR Calc Performed By: #### L 501.5200, L100.0100, L500.2500, L501.2300, L500.3400 ####[facility] [address] [place], [address] Glucose [Mass/Vol] 82 mg/dL Normal 74-106 [facility] Comment on above: Performed By: #### L 501.5200, L100.0100, L500.2500, L501.2300, L500.3400 ####[facility] [address] [place], [address] Potassium [Moles/Vol] 3.7 mmol/L Normal 3.5-5.1 [facility] Comment on above: Performed By: #### L 501.5200, L100.0100, L500.2500, L501.2300, L500.3400 ####[facility] [address] [place], [address] Sodium [Moles/Vol] 138 mmol/L Normal 136-145 [facility] Comment on above: Performed By: #### L 501.5200, L100.0100, L500.2500, L501.2300, L500.3400 ####[facility] [address] [place], [address] Urea nitrogen [Mass/Vol] 20 mg/dL High 05-03 [facility] Comment on above: Performed By: #### L 501.5200, L100.0100, L500.2500, L501.2300, L500.3400 ####[facility] [address] [place], [address] Basophil percentageOrdered B y: Camilo Upton on 11-20-2024 Basophils/100 WBC (Bld) 0.2 % 0-1 [facility] Bilirubin directOrdered By: Camilo Upton on 11-20-2024 Bilirubin.direct [Mass/Vol] 2.91 mg/dL High 0.00-0.30 [facility] Bilirubin, totalOrdered By: Camilo Upton on 11-20-2024 Bilirubin [Mass/Vol] 4.10 mg/dL High 0.20-1.00 [facility] Comment on above: For patients on eltr ombopag therapy, use of Dimension [place] TBIL is not recommended. Blood urea nitrogen (BUN)/cr eatinine ratioOrdered By: Camilo Upton on 11-20-2024 Urea nitrogen/Creatinine [Mass ratio] 30.1 mg/mg High 10-20 [facility] CBC W/Diff, Automatedon Absolute Lymph 0.60 X10 3/uL Low 0.83-4.51 [facility] Comment on above: Performed By: #### L 501.5200, L100.0100, L500.2500, L501.2300, L500.3400 ####[facility] [address] [place], [address] Absolute Neut 14.9 X10 3/uL High 2.0-7.7 [facility] Comment on above: Performed By: #### L 501.5200, L100.0100, L500.2500, L501.2300, L500.3400 ####[facility] [address] [place], [address] Basophils/100 WBC (Bld) 0.2 % Normal 0-1 [facility] Comment on above: Performed By: #### L 501.5200, L100.0100, L500.2500, L501.2300, L500.3400 ####[facility] [address] [place], [address] Eosinophils/100 WBC (Bld) 0.5 % Normal 0-5 [facility] Comment on above: Performed By: #### L 501.5200, L100.0100, L500.2500, L501.2300, L500.3400 ####[facility] [address] [place], [address] Erythrocyte distribution width (RBC) [Ratio] 14.2 % Normal 11.6-14.6 [facility] Comment on above: Performed By: #### L 501.5200, L100.0100, L500.2500, L501.2300, L500.3400 ####[facility] [address] [place], [address] Hematocrit (Bld) [Volume fraction] 40.7 % Normal 40-54 [facility] Comment on above: Performed By: #### L 501.5200, L100.0100, L500.2500, L501.2300, L500.3400 ####[facility] [address] [place], [address] Hemoglobin (Bld) [Mass/Vol] 13.2 g/dL Normal 13.0-16.5 [facility] Comment on above: Performed By: #### L 501.5200, L100.0100, L500.2500, L501.2300, L500.3400 ####[facility] [address] [place], [address] IG% 2.000 High 0.0-0.9 [facility] Comment on above: Result Comment: IG% - Immature Granulocytes (promyelocytes, myelocytes andmetamyelocytes) > 1% indicates that a LEFT SHIFT is Present. Performed By: #### L 501.5200, L100.0100, L500.2500, L501.2300, L500.3400 ####[facility] [address] [place], [address] Lymphocytes/100 WBC (Bld) 3.6 % Low 19-41 [facility] Comment on above: Performed By: #### L 501.5200, L100.0100, L500.2500, L501.2300, L500.3400 ####[facility] [address] [place], [address] MCH (RBC) [Entitic mass] 32.2 pg High 27.0-32.0 [facility] Comment on above: Performed By: #### L 501.5200, L100.0100, L500.2500, L501.2300, L500.3400 ####[facility] [address] [place], [address] MCHC (RBC) [Mass/Vol] 32.4 g/dL Normal 32-36 [facility] Comment on above: Performed By: #### L 501.5200, L100.0100, L500.2500, L501.2300, L500.3400 ####[facility] [address] [place], [address] MCV (RBC) [Entitic vol] 99.3 fL High 80-94 [facility] Comment on above: Performed By: #### L 501.5200, L100.0100, L500.2500, L501.2300, L500.3400 ####[facility] [address] [place], [address] Monocytes/100 WBC (Bld) 3.3 % Normal 0-10 [facility] Comment on above: Performed By: #### L 501.5200, L100.0100, L500.2500, L501.2300, L500.3400 ####[facility] [address] [place], [address] Neutrophils/100 WBC (Bld) 90.4 % High 47-70 [facility] Comment on above: Performed By: #### L 501.5200, L100.0100, L500.2500, L501.2300, L500.3400 ####[facility] [address] [place], [address] Nucleated RBC (Bld) [#/Vol] 0 10*3/uL Normal 0-5 [facility] Comment on above: Performed By: #### L 501.5200, L100.0100, L500.2500, L501.2300, L500.3400 ####[facility] [address] [place], [address] Platelet mean volume (Bld) [Entitic vol] 10.1 fL Normal 6.2-12.0 [facility] Comment on above: Performed By: #### L 501.5200, L100.0100, L500.2500, L501.2300, L500.3400 ####[facility] [address] [place], [address] Platelets (Bld) [#/Vol] 173 10*3/uL Normal 150-450 [facility] Comment on above: Performed By: #### L 501.5200, L100.0100, L500.2500, L501.2300, L500.3400 ####[facility] [address] [place], [address] RBC (Bld) [#/Vol] 4.10 10*6/uL Low 4.6-6.2 [facility] Comment on above: Performed By: #### L 501.5200, L100.0100, L500.2500, L501.2300, L500.3400 ####[facility] [address] [place], [address] RDW SD 52.0 fl High 35.1-43.9 [facility] Comment on above: Performed By: #### L 501.5200, L100.0100, L500.2500, L501.2300, L500.3400 ####[facility] [address] [place], [address] WBC (Bld) [#/Vol] 16.5 10*3/uL High 4.4-11.0 [facility] Comment on above: Performed By: #### L 501.5200, L100.0100, L500.2500, L501.2300, L500.3400 ####[facility] [address] [place], [address] Carbon dioxide measurementOr dered By: Camilo Upton on 11-20-2024 CO2 [Moles/Vol] 23.0 mmol/L 21.0-32.0 [facility] Chloride measurementOrdered By: Camilo Upton on 11-20-2024 Chloride [Moles/Vol] 108 mmol/L High 98-107 [facility] Eosinophil percentageOrdered By: Camilo Upton on 11-20-2024 Eosinophils/100 WBC (Bld) 0.5 % 0-5 [facility] Erythrocyte distribution wid th ratioOrdered By: Camilo Upton on 11-20-2024 Erythrocyte distribution width (RBC) [Ratio] 14.2 % 11.6-14.6 [facility] Erythrocyte distribution wid th standard deviationOrdered By: Camilo Upton on 11-20-2024 Erythrocyte distribution width (RBC) [Entitic vol] 52.0 fL High 35.1-43.9 [facility] Estimated glomerular filtrat ion rate (GFR) AmericanOrdered By: Camilo Upton on 11-20-2024 Estimated GFR (MDRD) Amer 150 mL/min >60 [facility] Comment on above: GFR Calc Estimation of creatinine monserrat aranceOrdered By: Camilo Upton on 11-20-2024 Estimated Creatinine Clearance Calc 74.81 ml/min [facility] Glomerular filtration rate ( GFR) estimationOrdered By: Camilo Upton on 11-20-2024 Estimated GFR (MDRD) Non-Af Amer 124 mL/min >60 [facility] Comment on above: Non- GFR Calc Glucose measurementOrdered B y: Camilo Upton on 11-20-2024 Glucose [Mass/Vol] 82 mg/dL 74-106 [facility] Hematocrit Auto (Bld) [Volum e fraction]Ordered By: Camilo Upton on 11-20-2024 Hematocrit (Bld) [Volume fraction] 40.7 % 40-54 [facility] Hemoglobin measurementOrdere d By: Camilo Upton on 11-20-2024 Hemoglobin (Bld) [Mass/Vol] 13.2 g/dL 13.0-16.5 [facility] Immature granulocytes/100 WB C Auto (Bld)Ordered By: Camilo Upton on 11-20-2024 Immature granulocytes/100 WBC (Bld) 2.000 % High 0.0-0.9 [facility] Comment on above: IG% - Immature Granu locytes (promyelocytes, myelocytes and metamyelocytes) > 1% indicates that a LEFT SHIFT is Present. Laboratory - Chemistry and C hemistry - challengeOrdered By: Camilo Upton on 11-20-2024 AST [Catalytic activity/Vol] 132 U/L High 15-37 [facility] Liver Profileon 11-20-2024 Albumin [Mass/Vol] 2.3 g/dL Low 3.2-5.0 [facility] Comment on above: Performed By: #### L 501.5200, L100.0100, L500.2500, L501.2300, L500.3400 ####[facility] [address] [place], [place], [id number] ALK P 375 U/L High 45-117 [facility] Comment on above: Performed By: #### L 501.5200, L100.0100, L500.2500, L501.2300, L500.3400 ####[facility] [address] [place], [address] ALT [Catalytic activity/Vol] 118 U/L High 16-61 [facility] Comment on above: Performed By: #### L 501.5200, L100.0100, L500.2500, L501.2300, L500.3400 ####[facility] [address] [place], [address] AST [Catalytic activity/Vol] 132 U/L High 15-37 [facility] Comment on above: Performed By: #### L 501.5200, L100.0100, L500.2500, L501.2300, L500.3400 ####[facility] [address] [place], [address] Bilirubin [Mass/Vol] 4.10 mg/dL High 0.20-1.00 [facility] Comment on above: Result Comment: For patients on eltrombopag therapy, use of Dimension [place] TBIL is not recommended. Performed By: #### L 501.5200, L100.0100, L500.2500, L501.2300, L500.3400 ####[facility] [address] [place], [address] Bilirubin.direct [Mass/Vol] 2.91 mg/dL High 0.00-0.30 [facility] Comment on above: Performed By: #### L 501.5200, L100.0100, L500.2500, L501.2300, L500.3400 ####[facility] [address] [place], [address] Globulin (S) [Mass/Vol] 4.2 g/dL Normal 2.2-4.2 [facility] Comment on above: Performed By: #### L 501.5200, L100.0100, L500.2500, L501.2300, L500.3400 ####[facility] [address] [place], [address] T PROT 6.5 g/dL Normal 6.4-8.2 [facility] Comment on above: Performed By: #### L 501.5200, L100.0100, L500.2500, L501.2300, L500.3400 ####[facility] [address] [place], [place], [id number] Lymphocytes Auto (Unsp spec) [#/Vol]Ordered By: Camilo Upton on 11-20-2024 Lymphocytes (Bld) [#/Vol] 0.60 10*3/uL Low 0.83-4.51 [facility] Lymphocytes/100 WBC Auto (Un sp spec)Ordered By: Camilo Upton on 11-20-2024 Lymphocytes/100 WBC (Bld) 3.6 % Low 19-41 [facility] MCV (mean corpuscular volume ) determinationOrdered By: Camilo Upton on 11-20-2024 MCV (RBC) [Entitic vol] 99.3 fL High 80-94 [facility] Magnesiumon 11-20-2024 Magnesium [Mass/Vol] 2.3 mg/dL Normal 1.6-2.6 [facility] Comment on above: Performed By: #### L 501.5200, L100.0100, L500.2500, L501.2300, L500.3400 ####[facility] [address] [facility] [place], [place], [id number] Magnesium measurementOrdered By: Camilo Upton on 11-20-2024 Magnesium [Mass/Vol] 2.3 mg/dL 1.6-2.6 [facility] Mean corpuscular hemoglobin (MCH) determinationOrdered By: Camilo Upton on 11-20-2024 MCH (RBC) [Entitic mass] 32.2 pg High 27.0-32.0 [facility] Mean corpuscular hemoglobin concentration (MCHC) determinationOrdered By: Camilo Upton on 11-20-2024 MCHC (RBC) [Mass/Vol] 32.4 g/dL 32-36 [facility] Comment on above: Delta: 34.8 on 11/19-0500 Mean platelet volume determi nationOrdered By: Camilo Upton on 11-20-2024 Platelet mean volume (Bld) [Entitic vol] 10.1 fL 6.2-12.0 [facility] Monocyte percentageOrdered B y: Camilo Upton on 11-20-2024 Monocytes/100 WBC (Bld) 3.3 % 0-10 [facility] Neutrophil percentageOrdered By: Camilo Upton on 11-20-2024 Neutrophils/100 WBC (Bld) 90.4 % High 47-70 [facility] Nucleated red blood cell per centageOrdered By: Camilo Upton on 11-20-2024 Nucleated RBC/100 WBC (Bld) [Ratio] 0 % 0-5 [facility] Phosphoruson 11-20-2024 Phosphate [Mass/Vol] 1.8 mg/dL Low 2.5-4.9 [facility] Comment on above: Performed By: #### L 501.5200, L100.0100, L500.2500, L501.2300, L500.3400 ####[facility] [address] [place], [address] Phosphorus measurementOrdere d By: Camilo Upton on 11-20-2024 Phosphorus Level 1.8 mg/dL Low 2.5-4.9 [facility] Platelet countOrdered By: Francisco Upton on 11-20-2024 Platelets (Bld) [#/Vol] 173 10*3/uL 150-450 [facility] Potassium measurementOrdered By: Camilo Upton on 11-20-2024 Potassium [Moles/Vol] 3.7 mmol/L 3.5-5.1 [facility] RBC Auto (Bld) [#/Vol]Ordere d By: Camilo Upton on 11-20-2024 RBC (Bld) [#/Vol] 4.10 10*6/uL Low 4.6-6.2 [facility] Serum anion gap measurementO rdered By: Camilo Upton on 11-20-2024 Anion gap [Moles/Vol] 7 mmol/L 5-15 [facility] Serum globulin measurementOr dered By: Camilo Upton on 11-20-2024 Globulin (S) [Mass/Vol] 4.2 g/dL 2.2-4.2 [facility] Serum or plasma alanine spangler otransferase (ALT) measurementOrdered By: Camilo Upton on 11-20-2024 ALT [Catalytic activity/Vol] 118 U/L High 16-61 [facility] Serum or plasma albumin marques urement (mass/volume)Ordered By: Camilo Upton on 11-20-2024 Albumin [Mass/Vol] 2.3 g/dL Low 3.2-5.0 [facility] Serum or plasma alkaline benji sphatase measurementOrdered By: Camilo Upton on 11-20-2024 ALP [Catalytic activity/Vol] 375 U/L High 45-117 [facility] Serum or plasma calcium marques urement (mass/volume)Ordered By: Camilo Upton on 11-20-2024 Calcium [Mass/Vol] 8.8 mg/dL 8.5-10.1 [facility] Serum or plasma creatinine m easurement (mass/volume)Ordered By: Camilo Upton on 11-20-2024 Creatinine [Mass/Vol] 0.66 mg/dL Low 0.70-1.30 [facility] Comment on above: The validity of the calculated GFR & GFRAA in patients over 70 years has not been determined. Clinical correlation is essential. Serum or plasma urea nitroge n measurement (mass/volume)Ordered By: Camilo Upton on 11-20-2024 Urea nitrogen [Mass/Vol] 20 mg/dL High 7-18 [facility] Sodium levelOrdered By: Mason Upton on 11-20-2024 Sodium [Moles/Vol] 138 mmol/L 136-145 [facility] Total proteinOrdered By: Randy Upton on 11-20-2024 Protein [Mass/Vol] 6.5 g/dL 6.4-8.2 [facility] White blood cell (WBC) count Ordered By: Camilo Upton on 11-20-2024 WBC (Bld) [#/Vol] 16.5 10*3/uL High 4.4-11.0 [facility] Albumin to globulin ratioOrd ered By: Sheyla Newton on 11-19-2024 Albumin/Globulin [Mass ratio] 0.6 {ratio} Low 0.9-2.4 [facility] Comment on above: Performed By: #### L 100.0100, L501.5200, L500.4050, L501.2300 ####[facility] [address] [place], [address] CBC W/Diff, Automatedon 02 PATH REV Reviewed Normal [facility] Comment on above: Result Comment: Ruddy Gupta M.D. 11/19/24 AMENDED REPORT 11/19/24 1406 PATH REV previously reported as: February Performed By: #### L 500.3400, L100.0100, L500.2500, L501.2450 ####[facility] [address] [place], [address] Absolute Lymph 0.47 X10 3/uL Low 0.83-4.51 [facility] Comment on above: Performed By: #### L 100.0100, L501.5200, L500.4050, L501.2300 ####[facility] [address] [place], [address] Absolute Neut 19.0 X10 3/uL High 2.0-7.7 [facility] Comment on above: Performed By: #### L 100.0100, L501.5200, L500.4050, L501.2300 ####[facility] [address] [place], [address] Basophils/100 WBC (Bld) 0.2 % Normal 0-1 [facility] Comment on above: Performed By: #### L 100.0100, L501.5200, L500.4050, L501.2300 ####[facility] [address] [place], [address] Eosinophils/100 WBC (Bld) 0.2 % Normal 0-5 [facility] Comment on above: Performed By: #### L 100.0100, L501.5200, L500.4050, L501.2300 ####[facility] [address] [place], [address] Erythrocyte distribution width (RBC) [Ratio] 14.1 % Normal 11.6-14.6 [facility] Comment on above: Performed By: #### L 100.0100, L501.5200, L500.4050, L501.2300 ####[facility] [address] [place], [address] Hematocrit (Bld) [Volume fraction] 33.9 % Low 40-54 [facility] Comment on above: Performed By: #### L 100.0100, L501.5200, L500.4050, L501.2300 ####[facility] [address] [place], [address] Hemoglobin (Bld) [Mass/Vol] 11.8 g/dL Low 13.0-16.5 [facility] Comment on above: Performed By: #### L 100.0100, L501.5200, L500.4050, L501.2300 ####[facility] [address] [place], [address] IG% 2.500 High 0.0-0.9 [facility] Comment on above: Result Comment: IG% - Immature Granulocytes (promyelocytes, myelocytes andmetamyelocytes) > 1% indicates that a LEFT SHIFT is Present. Performed By: #### L 100.0100, L501.5200, L500.4050, L501.2300 ####[facility] [address] [place], [address] Lymphocytes/100 WBC (Bld) 2.2 % Low 19-41 [facility] Comment on above: Performed By: #### L 100.0100, L501.5200, L500.4050, L501.2300 ####[facility] [address] [place], [address] MCH (RBC) [Entitic mass] 33.5 pg High 27.0-32.0 [facility] Comment on above: Performed By: #### L 100.0100, L501.5200, L500.4050, L501.2300 ####[facility] [address] [place], [address] MCHC (RBC) [Mass/Vol] 34.8 g/dL Normal 32-36 [facility] Comment on above: Performed By: #### L 100.0100, L501.5200, L500.4050, L501.2300 ####[facility] [address] [place], [address] MCV (RBC) [Entitic vol] 96.3 fL High 80-94 [facility] Comment on above: Performed By: #### L 100.0100, L501.5200, L500.4050, L501.2300 ####[facility] [address] [place], [address] Monocytes/100 WBC (Bld) 4.4 % Normal 0-10 [facility] Comment on above: Performed By: #### L 100.0100, L501.5200, L500.4050, L501.2300 ####[facility] [address] [place], [address] Neutrophils/100 WBC (Bld) 90.5 % High 47-70 [facility] Comment on above: Performed By: #### L 100.0100, L501.5200, L500.4050, L501.2300 ####[facility] [address] [place], [address] Nucleated RBC (Bld) [#/Vol] 0 10*3/uL Normal 0-5 [facility] Comment on above: Performed By: #### L 100.0100, L501.5200, L500.4050, L501.2300 ####[facility] [address] [place], [address] Platelet mean volume (Bld) [Entitic vol] 9.8 fL Normal 6.2-12.0 [facility] Comment on above: Performed By: #### L 100.0100, L501.5200, L500.4050, L501.2300 ####[facility] [address] [place], [address] Platelets (Bld) [#/Vol] 161 10*3/uL Normal 150-450 [facility] Comment on above: Performed By: #### L 100.0100, L501.5200, L500.4050, L501.2300 ####[facility] [address] [place], [address] RBC (Bld) [#/Vol] 3.52 10*6/uL Low 4.6-6.2 [facility] Comment on above: Performed By: #### L 100.0100, L501.5200, L500.4050, L501.2300 ####[facility] [address] [place], [address] RDW SD 49.7 fl High 35.1-43.9 [facility] Comment on above: Performed By: #### L 100.0100, L501.5200, L500.4050, L501.2300 ####[facility] [address] [place], [address] WBC (Bld) [#/Vol] 21.0 10*3/uL High 4.4-11.0 [facility] Comment on above: Performed By: #### L 100.0100, L501.5200, L500.4050, L501.2300 ####[facility] [address] [place], [address] Comprehensive Metabolic Prof ilon 11-19-2024 Albumin [Mass/Vol] 2.2 g/dL Low 3.2-5.0 [facility] Comment on above: Performed By: #### L 100.0100, L501.5200, L500.4050, L501.2300 ####[facility] [address] [place], [address] ALK P 305 U/L High 45-117 [facility] Comment on above: Performed By: #### L 100.0100, L501.5200, L500.4050, L501.2300 ####[facility] [address] [place], [address] ALT [Catalytic activity/Vol] 132 U/L High 16-61 [facility] Comment on above: Performed By: #### L 100.0100, L501.5200, L500.4050, L501.2300 ####[facility] [address] [place], [address] AST [Catalytic activity/Vol] 167 U/L High 15-37 [facility] Comment on above: Performed By: #### L 100.0100, L501.5200, L500.4050, L501.2300 ####[facility] [address] [place], [address] Bilirubin [Mass/Vol] 4.80 mg/dL High 0.20-1.00 [facility] Comment on above: Result Comment: For patients on eltrombopag therapy, use of Dimension [place] TBIL is not recommended. Performed By: #### L 100.0100, L501.5200, L500.4050, L501.2300 ####[facility] [address] [place], [address] BUN/CRE 20.9 RATIO High 10-20 [facility] Comment on above: Performed By: #### L 100.0100, L501.5200, L500.4050, L501.2300 ####[facility] [address] [place], [address] CA,Total 8.2 mg/dL Low 8.5-10.1 [facility] Comment on above: Performed By: #### L 100.0100, L501.5200, L500.4050, L501.2300 ####[facility] [address] [place], [address] Chloride [Moles/Vol] 109 mmol/L High 98-107 [facility] Comment on above: Performed By: #### L 100.0100, L501.5200, L500.4050, L501.2300 ####[facility] [address] [place], [address] CO2 [Moles/Vol] 24.0 mmol/L Normal 21.0-32.0 [facility] Comment on above: Performed By: #### L 100.0100, L501.5200, L500.4050, L501.2300 ####[facility] [address] [place], [address] Creatinine [Mass/Vol] 0.77 mg/dL Normal 0.70-1.30 [facility] Comment on above: Result Comment: The validity of the calculated GFR GFRAA in patients over70 years has not been determined. Clinical correlation isessential. Performed By: #### L 100.0100, L501.5200, L500.4050, L501.2300 ####[facility] [address] [place], [address] ECRCL 74.81 ml/min Normal [facility] Comment on above: Performed By: #### L 100.0100, L501.5200, L500.4050, L501.2300 ####[facility] [address] [place], [address] EST GFR - AA 127 mL/min Normal >60 [facility] Comment on above: Result Comment: Afri can [place] GFR Calc Performed By: #### L 100.0100, L501.5200, L500.4050, L501.2300 ####[facility] [address] [place], [address] GAP 7 Normal 5-15 [facility] Comment on above: Performed By: #### L 100.0100, L501.5200, L500.4050, L501.2300 ####[facility] [address] [place], [address] GFR/1.73 sq M.predicted among non-blacks MDRD (S/P/Bld) [Vol rate/Area] 105 mL/min/{1.73_m2} Normal >60 [facility] Comment on above: Result Comment: Non- GFR Calc Performed By: #### L 100.0100, L501.5200, L500.4050, L501.2300 ####[facility] [address] [place], [address] Globulin (S) [Mass/Vol] 3.5 g/dL Normal 2.2-4.2 [facility] Comment on above: Performed By: #### L 100.0100, L501.5200, L500.4050, L501.2300 ####[facility] [address] [place], [address] Glucose [Mass/Vol] 105 mg/dL Normal 74-106 [facility] Comment on above: Result Comment: Fast ing Glucose result from 100 to 125 mg/dLsuggests IMPAIRED HOMEOSTASIS per A.D.A. criteria. Performed By: #### L 100.0100, L501.5200, L500.4050, L501.2300 ####[facility] [address] [place], [address] Potassium [Moles/Vol] 3.7 mmol/L Normal 3.5-5.1 [facility] Comment on above: Performed By: #### L 100.0100, L501.5200, L500.4050, L501.2300 ####[facility] [address] [place], [address] Sodium [Moles/Vol] 140 mmol/L Normal 136-145 [facility] Comment on above: Performed By: #### L 100.0100, L501.5200, L500.4050, L501.2300 ####[facility] [address] [place], [address] T PROT 5.7 g/dL Low 6.4-8.2 [facility] Comment on above: Performed By: #### L 100.0100, L501.5200, L500.4050, L501.2300 ####[facility] [address] [place], [address] Urea nitrogen [Mass/Vol] 16 mg/dL Normal 7-18 [facility] Comment on above: Performed By: #### L 100.0100, L501.5200, L500.4050, L501.2300 ####[facility] [address] [place], [address] ERCP Biliary/Pancreason - ERCP Biliary/Pancreas Normal [facility] ERCP Reporton 11-19-2024 ERCP Report Normal [facility] MR/POSTOP.ANEon 11-19-2024 MR/POSTOP.ANE Normal [facility] MR/BZDQNGDQ0th 11-19-2024 MR/POSTOPAN2 Normal [facility] Magnesiumon 11-19-2024 Magnesium [Mass/Vol] 1.8 mg/dL Normal 1.6-2.6 [facility] Comment on above: Performed By: #### L 100.0100, L501.5200, L500.4050, L501.2300 ####[facility] [address] [place], [address] Phosphoruson 11-19-2024 Phosphate [Mass/Vol] 1.9 mg/dL Low 2.5-4.9 [facility] Comment on above: Performed By: #### L 100.0100, L501.5200, L500.4050, L501.2300 ####[facility] [address] [place], [address] Special Stain Group IIon Special Stain Group II Normal [facility] Comment on above: Performed By: #### P SSII ####[facility] [address] [place], [address] Urine Cultureon 11-19-2024 [facility] Culture exhibits no growth. Normal [facility] Comment on above: Performed By: #### L 400.0001, M100.2200 ####[facility] [address] [place], [address] Ammoniaon 11-18-2024 Ammonia (P) [Moles/Vol] 28.0 umol/L Normal 11-32 [facility] Comment on above: Order Comment: REDRA W. PREVIOUS SPECIMEN REJECTED DUE TOHEMOLYSIS. 11/18/24 0421 Chris Pino. Performed By: #### L 503.5510 ####[facility] [address] [place], [address] CBC W/Diff, Automatedon Absolute Lymph 0.29 X10 3/uL Low 0.83-4.51 [facility] Comment on above: Performed By: #### L 100.0100, L500.4050, L501.2300, L501.5200 ####[facility] [address] [place], [address] Absolute Neut 20.0 X10 3/uL High 2.0-7.7 [facility] Comment on above: Performed By: #### L 100.0100, L500.4050, L501.2300, L501.5200 ####[facility] [address] [place], [address] Basophils/100 WBC (Bld) 0.1 % Normal 0-1 [facility] Comment on above: Performed By: #### L 100.0100, L500.4050, L501.2300, L501.5200 ####[facility] [address] [place], [address] Eosinophils/100 WBC (Bld) 0.1 % Normal 0-5 [facility] Comment on above: Performed By: #### L 100.0100, L500.4050, L501.2300, L501.5200 ####[facility] [address] [place], [address] Erythrocyte distribution width (RBC) [Ratio] 13.9 % Normal 11.6-14.6 [facility] Comment on above: Performed By: #### L 100.0100, L500.4050, L501.2300, L501.5200 ####[facility] [address] [place], [address] Hematocrit (Bld) [Volume fraction] 34.9 % Low 40-54 [facility] Comment on above: Performed By: #### L 100.0100, L500.4050, L501.2300, L501.5200 ####[facility] [address] [place], [address] Hemoglobin (Bld) [Mass/Vol] 11.8 g/dL Low 13.0-16.5 [facility] Comment on above: Performed By: #### L 100.0100, L500.4050, L501.2300, L501.5200 ####[facility] [address] [place], [address] IG% 0.900 Normal 0.0-0.9 [facility] Comment on above: Result Comment: IG% - Immature Granulocytes (promyelocytes, myelocytes andmetamyelocytes) > 1% indicates that a LEFT SHIFT is Present. Performed By: #### L 100.0100, L500.4050, L501.2300, L501.5200 ####[facility] [address] [place], [address] Lymphocytes/100 WBC (Bld) 1.4 % Low 19-41 [facility] Comment on above: Performed By: #### L 100.0100, L500.4050, L501.2300, L501.5200 ####[facility] [address] [place], [address] MCH (RBC) [Entitic mass] 33.0 pg High 27.0-32.0 [facility] Comment on above: Performed By: #### L 100.0100, L500.4050, L501.2300, L501.5200 ####[facility] [address] [place], [address] MCHC (RBC) [Mass/Vol] 33.8 g/dL Normal 32-36 [facility] Comment on above: Performed By: #### L 100.0100, L500.4050, L501.2300, L501.5200 ####[facility] [address] [place], [address] MCV (RBC) [Entitic vol] 97.5 fL High 80-94 [facility] Comment on above: Performed By: #### L 100.0100, L500.4050, L501.2300, L501.5200 ####[facility] [address] [place], [address] Monocytes/100 WBC (Bld) 4.6 % Normal 0-10 [facility] Comment on above: Performed By: #### L 100.0100, L500.4050, L501.2300, L501.5200 ####[facility] [address] [place], [address] Neutrophils/100 WBC (Bld) 92.9 % High 47-70 [facility] Comment on above: Performed By: #### L 100.0100, L500.4050, L501.2300, L501.5200 ####[facility] [address] [place], [address] Nucleated RBC (Bld) [#/Vol] 0 10*3/uL Normal 0-5 [facility] Comment on above: Performed By: #### L 100.0100, L500.4050, L501.2300, L501.5200 ####[facility] [address] [place], [address] Platelet mean volume (Bld) [Entitic vol] 9.5 fL Normal 6.2-12.0 [facility] Comment on above: Performed By: #### L 100.0100, L500.4050, L501.2300, L501.5200 ####[facility] [address] [place], [address] Platelets (Bld) [#/Vol] 169 10*3/uL Normal 150-450 [facility] Comment on above: Performed By: #### L 100.0100, L500.4050, L501.2300, L501.5200 ####[facility] [address] [place], [address] RBC (Bld) [#/Vol] 3.58 10*6/uL Low 4.6-6.2 [facility] Comment on above: Performed By: #### L 100.0100, L500.4050, L501.2300, L501.5200 ####[facility] [address] [place], [address] RDW SD 50.3 fl High 35.1-43.9 [facility] Comment on above: Performed By: #### L 100.0100, L500.4050, L501.2300, L501.5200 ####[facility] [address] [place], [address] WBC (Bld) [#/Vol] 21.5 10*3/uL High 4.4-11.0 [facility] Comment on above: Performed By: #### L 100.0100, L500.4050, L501.2300, L501.5200 ####[facility] [address] [place], [address] Comprehensive Metabolic Prof ilon 11-18-2024 Albumin [Mass/Vol] 2.3 g/dL Low 3.2-5.0 [facility] Comment on above: Performed By: #### L 100.0100, L500.4050, L501.2300, L501.5200 ####[facility] [address] [place], [address] Albumin/Globulin [Mass ratio] 0.7 {ratio} Low 0.9-2.4 [facility] Comment on above: Performed By: #### L 100.0100, L500.4050, L501.2300, L501.5200 ####[facility] [address] [place], [address] ALK P 383 U/L High 45-117 [facility] Comment on above: Performed By: #### L 100.0100, L500.4050, L501.2300, L501.5200 ####[facility] [address] [place], [address] ALT [Catalytic activity/Vol] 117 U/L High 16-61 [facility] Comment on above: Performed By: #### L 100.0100, L500.4050, L501.2300, L501.5200 ####[facility] [address] [place], [address] AST [Catalytic activity/Vol] 172 U/L High 15-37 [facility] Comment on above: Performed By: #### L 100.0100, L500.4050, L501.2300, L501.5200 ####[facility] [address] [place], [address] Bilirubin [Mass/Vol] 4.80 mg/dL High 0.20-1.00 [facility] Comment on above: Result Comment: For patients on eltrombopag therapy, use of Dimension [place] TBIL is not recommended. Performed By: #### L 100.0100, L500.4050, L501.2300, L501.5200 ####[facility] [address] [place], [address] BUN/CRE 17.7 RATIO Normal 10-20 [facility] Comment on above: Performed By: #### L 100.0100, L500.4050, L501.2300, L501.5200 ####[facility] [address] [place], [address] CA,Total 8.1 mg/dL Low 8.5-10.1 [facility] Comment on above: Performed By: #### L 100.0100, L500.4050, L501.2300, L501.5200 ####[facility] [address] [place], [address] Chloride [Moles/Vol] 109 mmol/L High 98-107 [facility] Comment on above: Performed By: #### L 100.0100, L500.4050, L501.2300, L501.5200 ####[facility] [address] [place], [address] CO2 [Moles/Vol] 24.0 mmol/L Normal 21.0-32.0 [facility] Comment on above: Performed By: #### L 100.0100, L500.4050, L501.2300, L501.5200 ####[facility] [address] [place], [address] Creatinine [Mass/Vol] 0.85 mg/dL Normal 0.70-1.30 [facility] Comment on above: Result Comment: The validity of the calculated GFR GFRAA in patients over70 years has not been determined. Clinical correlation isessential. Performed By: #### L 100.0100, L500.4050, L501.2300, L501.5200 ####[facility] [address] [place], [address] ECRCL 70.41 ml/min Normal [facility] Comment on above: Performed By: #### L 100.0100, L500.4050, L501.2300, L501.5200 ####[facility] [address] [place], [address] EST GFR - AA 113 mL/min Normal >60 [facility] Comment on above: Result Comment: Afri can [place] GFR Calc Performed By: #### L 100.0100, L500.4050, L501.2300, L501.5200 ####[facility] [address] [place], [address] GAP 8 Normal 5-15 [facility] Comment on above: Performed By: #### L 100.0100, L500.4050, L501.2300, L501.5200 ####[facility] [address] [place], [address] GFR/1.73 sq M.predicted among non-blacks MDRD (S/P/Bld) [Vol rate/Area] 93 mL/min/{1.73_m2} Normal >60 [facility] Comment on above: Result Comment: Non- GFR Calc Performed By: #### L 100.0100, L500.4050, L501.2300, L501.5200 ####[facility] [address] [place], [address] Globulin (S) [Mass/Vol] 3.3 g/dL Normal 2.2-4.2 [facility] Comment on above: Performed By: #### L 100.0100, L500.4050, L501.2300, L501.5200 ####[facility] [address] [place], [address] Glucose [Mass/Vol] 112 mg/dL High 74-106 [facility] Comment on above: Result Comment: Fast ing Glucose result from 100 to 125 mg/dLsuggests IMPAIRED HOMEOSTASIS per A.D.A. criteria. Performed By: #### L 100.0100, L500.4050, L501.2300, L501.5200 ####[facility] [address] [place], [address] Potassium [Moles/Vol] 3.1 mmol/L Low 3.5-5.1 [facility] Comment on above: Performed By: #### L 100.0100, L500.4050, L501.2300, L501.5200 ####[facility] [address] [place], [address] Sodium [Moles/Vol] 141 mmol/L Normal 136-145 [facility] Comment on above: Performed By: #### L 100.0100, L500.4050, L501.2300, L501.5200 ####[facility] [address] [place], [address] T PROT 5.6 g/dL Low 6.4-8.2 [facility] Comment on above: Performed By: #### L 100.0100, L500.4050, L501.2300, L501.5200 ####[facility] [address] [place], [address] Urea nitrogen [Mass/Vol] 15 mg/dL Normal 7-18 [facility] Comment on above: Performed By: #### L 100.0100, L500.4050, L501.2300, L501.5200 ####[facility] [address] [place], [address] Consultation - Intensiviston 11-18-2024 Consultation - Dental Assistant Instructor Normal [facility] Consultation - Surgicalon Consultation - Surgical Normal [facility] H AND P Exam - Hospitaliston 11-18-2024 H&P Exam - Hospitalist Normal [facility] Lactic Acidon 11-18-2024 Lactate [Moles/Vol] 1.8 mmol/L Normal 0.4-1.9 [facility] Comment on above: Performed By: #### L 503.6008 ####[facility] [address] [place], [address] Lactic acid measurementOrder ed By: oMlly Lizarraga on 11-18-2024 Lactate [Moles/Vol] 1.8 mmol/L 0.4-2.0 [facility] MR/CON.PCM.GIon 11-18-2024 MR/CON.PCM.GI Normal [facility] Magnesiumon 11-18-2024 Magnesium [Mass/Vol] 1.6 mg/dL Normal 1.6-2.6 [facility] Comment on above: Performed By: #### L 100.0100, L500.4050, L501.2300, L501.5200 ####[facility] [address] [place], [address] Phosphoruson 11-18-2024 Phosphate [Mass/Vol] 3.2 mg/dL Normal 2.5-4.9 [facility] Comment on above: Performed By: #### L 100.0100, L500.4050, L501.2300, L501.5200 ####[facility] [address] [place], [address] Urinalysis, Completeon 11-18 BACTERIA 0 SEEN Normal None Seen [facility] Comment on above: Order Comment: CLEAN CATCH Performed By: #### L 400.0001, M100.2200 ####[facility] [address] [place], [address] EPI,SQUAMOUS 0 SEEN Normal 0-5 [facility] Comment on above: Order Comment: CLEAN CATCH Performed By: #### L 400.0001, M100.2200 ####[facility] [address] [place], [address] Mucus Ql (Urine sed) 0 SEEN Normal [facility] Comment on above: Order Comment: CLEAN CATCH Performed By: #### L 400.0001, M100.2200 ####[facility] [address] [place], [address] RBC 0 SEEN Normal 0-5 [facility] Comment on above: Order Comment: CLEAN CATCH Performed By: #### L 400.0001, M100.2200 ####[facility] [address] [place], [address] WBC 0 SEEN Normal 0-5 [facility] Comment on above: Order Comment: CLEAN CATCH Performed By: #### L 400.0001, M100.2200 ####[facility] [address] [place], [address] Venous blood ammonia measure mentOrdered By: Camilo Roy on 11-18-2024 Ammonia (P) [Moles/Vol] 28.0 umol/L 11-32 [facility] 12 Lead EKGon 11-17-2024 12 Lead EKG Normal [facility] Base excess Calc (BldV) [Mol es/Vol]Ordered By: Molly Lizarraga on 11-17-2024 Venous Blood Base Excess 1 mmol/L -1.0-3.5 [facility] Basic Metabolic Profile (BMP )on 11-17-2024 BUN/CRE 17.4 RATIO Normal 10-20 [facility] Comment on above: Performed By: #### L 500.3400, L100.0100, L500.2500, L501.2450 ####[facility] [address] [place], [address] CA,Total 8.8 mg/dL Normal 8.5-10.1 [facility] Comment on above: Performed By: #### L 500.3400, L100.0100, L500.2500, L501.2450 ####[facility] [address] [place], [address] Chloride [Moles/Vol] 100 mmol/L Normal 98-107 [facility] Comment on above: Performed By: #### L 500.3400, L100.0100, L500.2500, L501.2450 ####[facility] [address] [place], [address] CO2 [Moles/Vol] 27.0 mmol/L Normal 21.0-32.0 [facility] Comment on above: Performed By: #### L 500.3400, L100.0100, L500.2500, L501.2450 ####[facility] [address] [place], [address] Creatinine [Mass/Vol] 0.98 mg/dL Normal 0.70-1.30 [facility] Comment on above: Result Comment: The validity of the calculated GFR GFRAA in patients over70 years has not been determined. Clinical correlation isessential. Performed By: #### L 500.3400, L100.0100, L500.2500, L501.2450 ####[facility] [address] [place], [address] ECRCL 66.62 ml/min Normal [facility] Comment on above: Performed By: #### L 500.3400, L100.0100, L500.2500, L501.2450 ####[facility] [address] [place], [address] EST GFR - AA 96 mL/min Normal >60 [facility] Comment on above: Result Comment: Afri can [place] GFR Calc Performed By: #### L 500.3400, L100.0100, L500.2500, L501.2450 ####[facility] [address] [place], [address] GAP 8 Normal 5-15 [facility] Comment on above: Performed By: #### L 500.3400, L100.0100, L500.2500, L501.2450 ####[facility] [address] [place], [address] GFR/1.73 sq M.predicted among non-blacks MDRD (S/P/Bld) [Vol rate/Area] 79 mL/min/{1.73_m2} Normal >60 [facility] Comment on above: Result Comment: Non- GFR Calc Performed By: #### L 500.3400, L100.0100, L500.2500, L501.2450 ####[facility] [address] [place], [address] Glucose [Mass/Vol] 132 mg/dL High 74-106 [facility] Comment on above: Result Comment: Fast ing Glucose result greater than or equal to 126 mg/dLsuggests DIABETES MELLITUS per A.D.A. criteria. Performed By: #### L 500.3400, L100.0100, L500.2500, L501.2450 ####[facility] [address] [place], [address] Potassium [Moles/Vol] 3.8 mmol/L Normal 3.5-5.1 [facility] Comment on above: Performed By: #### L 500.3400, L100.0100, L500.2500, L501.2450 ####[facility] [address] [place], [address] Sodium [Moles/Vol] 135 mmol/L Low 136-145 [facility] Comment on above: Performed By: #### L 500.3400, L100.0100, L500.2500, L501.2450 ####[facility] [address] [place], [address] Urea nitrogen [Mass/Vol] 17 mg/dL Normal 7-18 [facility] Comment on above: Performed By: #### L 500.3400, L100.0100, L500.2500, L501.2450 ####[facility] [address] [place], [address] Bilirubin Test strip Ql (U)O rdered By: Molly Lizarraga on 11-17-2024 Bilirubin Ql (U) 1 mg/dL High Negative [facility] Comment on above: COLOR OF URINE MAY A FFECT DIPSTICK RESULTS. Blood band neutrophil count as percentage of total leukocytesOrdered By: Molly Lizarraga on 11-17-2024 Band form neutrophils/100 WBC (Bld) 9 % High 0-5 [facility] Blood cultureOrdered By: Amanda Lizarraga on 11-17-2024 Bacteria identified Cx Nom (Bld) GNR lactose rough patcher Abnormal [facility] Bacteria identified Cx Nom (Bld) Positive Abnormal [facility] Bacteria identified Cx Nom (Bld) Escherichia coli Abnormal [facility] Bacteria identified Cx Nom (Bld) Enterococcus faecalis Abnormal [facility] Blood lymphocytes/100 leukoc ytesOrdered By: Molly Lizarraga on 11-17-2024 Lymphocytes/100 WBC (Bld) 4 % Low 19-41 [facility] Blood monocytes/100 leukocyt esOrdered By: Molly Lizarraga on 11-17-2024 Monocytes/100 WBC (Bld) 2 % 0-10 [facility] CO2 (BldV) [Moles/Vol]Ordere d By: Molly Lizarraga on 11-17-2024 CO2 [Moles/Vol] 26 mmol/L 23-33 [facility] CO2 (BldV) [Partial pressure ]Ordered By: Molly Lizarraga on 11-17-2024 Bed Mix Venous Bld PCO2 at Pat Temp 35.3 mmHg Low 41-[address] [facility] [address] Chest, Abd, Pel w/Contras ton 11-17-2024 CT Chest, Abd, Pel w/Contrast Normal [facility] Cells counted Molgen (Bld/Ti ss) [#]Ordered By: Molly Lizarraga on 11-17-2024 Differential Total Cells Counted 100 MANUAL DIFF [facility] Determination of fraction of inspired oxygenOrdered By: Molly Lizarraga on 11-17-2024 Blood Gas Oxygen Percent 3.0 [facility] Emergency Department Summary on 11-17-2024 Emergency Department Summary Normal [facility] Epithelial cells.squamous LM Ql (Urine sed)Ordered By: Molly Lizarraga on 11-17-2024 Epithelial cells.squamous LM.HPF (Urine sed) [#/Area] 0 /[HPF] 0-5 [facility] Glucose Ql (U)Ordered By: Kareem Lizarraga on 11-17-2024 Urine Glucose (UA) Normal mg/dl Normal [facility] Influenza virus A and B and SARS-CoV-2 (COVID-19) and Respiratory syncytial virus RNAOrdered By: Molly Lizarraga on 11-17-2024 SARS-CoV-2 (COVID-19) RNA ELISA+probe Ql (Unsp spec) [facility] Ketones Test strip Ql (U)Ord ered By: Molly Lizarraga on 11-17-2024 Ketones Ql (U) Negative Negative [facility] Lactic Acidon 11-17-2024 Lactate [Moles/Vol] 3.1 mmol/L Invalid Interpretation Code 0.4-1.9 [facility] Comment on above: Order Comment: Y Result Comment: Crit ical Result(s) Called at: 22:47:31 11/17/2024 by: IVETH to Ethan Medrano. Results read back by same. Performed By: #### L 503.6005 ####[facility] [address] [place], [address] Lipaseon 11-17-2024 Lipase [Catalytic activity/Vol] 145 U/L High 13-75 [facility] Comment on above: Result Comment: Margaret smith note:LIPASE revised reference range effective 23.New Lipase methodology. Expected to produce lower valuesthan the previous assay method.NEW Reference Range: 13 - 75 U/L Performed By: #### L 500.3400, L100.0100, L500.2500, L501.2450 ####[facility] [address] [place], [address] Lipase measurementOrdered By : Molly Lizarraga on 11-17-2024 Lipase [Catalytic activity/Vol] 145 U/L High 13-75 [facility] Comment on above: Please note:LIPASE r evised reference range effective 23. New Lipase methodology. Expected to produce lower values than the previous assay method. NEW Reference Range: 13 - 75 U/L Liver Profileon 11-17-2024 Albumin [Mass/Vol] 2.9 g/dL Low 3.2-5.0 [facility] Comment on above: Performed By: #### L 500.3400, L100.0100, L500.2500, L501.2450 ####[facility] [address] [place], [address] ALK P 488 U/L High 45-117 [facility] Comment on above: Performed By: #### L 500.3400, L100.0100, L500.2500, L501.2450 ####[facility] [address] [place], [address] ALT [Catalytic activity/Vol] 109 U/L High 16-61 [facility] Comment on above: Performed By: #### L 500.3400, L100.0100, L500.2500, L501.2450 ####[facility] [address] [place], [address] AST [Catalytic activity/Vol] 161 U/L High 15-37 [facility] Comment on above: Performed By: #### L 500.3400, L100.0100, L500.2500, L501.2450 ####[facility] [address] [place], [address] Bilirubin [Mass/Vol] 3.50 mg/dL High 0.20-1.00 [facility] Comment on above: Result Comment: For patients on eltrombopag therapy, use of Dimension [place] TBIL is not recommended. Performed By: #### L 500.3400, L100.0100, L500.2500, L501.2450 ####[facility] [address] [place], [address] Bilirubin.direct [Mass/Vol] 2.67 mg/dL High 0.00-0.30 [facility] Comment on above: Performed By: #### L 500.3400, L100.0100, L500.2500, L501.2450 ####[facility] [address] [place], [address] Globulin (S) [Mass/Vol] 4.2 g/dL Normal 2.2-4.2 [facility] Comment on above: Performed By: #### L 500.3400, L100.0100, L500.2500, L501.2450 ####[facility] [address] [place], [address] T PROT 7.1 g/dL Normal 6.4-8.2 [facility] Comment on above: Performed By: #### L 500.3400, L100.0100, L500.2500, L501.2450 ####[facility] [address] [place], [address] M100.678on 11-17-2024 M100.678 Pending SARS-CoV-2 (COVID 19) Negative INFLUENZA A Negative INFLUENZA B Negative RSV PCR Negative Normal [facility] Comment on above: Performed By: #### M 100.678 ####[facility] [address] [place], [address] Microscopic analysis of urin e for red blood cells (RBC)Ordered By: Molly Lizarraga on 11-17-2024 Urine RBC 0 SEEN /hpf 0-5 [facility] Mucus LM Ql (Urine sed)Order ed By: Molly Lizarraga on 11-17-2024 Mucus Ql (Urine sed) 0 SEEN /hpf [facility] Nitrite Test strip Ql (U)Ord ered By: Molly Lizarraga on 11-17-2024 Nitrite Ql (U) Negative Negative [facility] No Panel InformationOrdered By: Molly Lizarraga on 11-17-2024 Blood Gas Sample Site Not entered [facility] Blood Gas Specimen Type KAILEY [facility] Oxygen Delivery Device Cannula [facility] Oxygen (BldV) [Partial press ure]Ordered By: Molly Liazrraga on 11-17-2024 Venous Blood Partial Pressure O2 54 mmHg High 25-40 [facility] Pathologist review Noble (Unsp spec) [Interp]Ordered By: Molly Lizarraga on 11-17-2024 Differential Pathologist's Review Reviewed [facility] Comment on above: Previous reported re sult: Ambreen gonzalez Edited by: MISTY on 11/19/24:1406Jesu Gupta M.D. 11/19/24 AMENDED REPORT 11/19/24 1406 PATH REV previously reported as: Ambreen gonzalez Platelets LM Ql (Bld)Ordered By: Molly Lizarraga on 11-17-2024 Platelet Estimate ADEQUATE ADEQ [facility] Protein Test strip Ql (U)Ord ered By: Molly Lizarraga on 11-17-2024 Protein Ql (U) 15 mg/dl High Negative [facility] RBC morphology finding Nom ( Bld)Ordered By: Molly Lizarraga on 11-17-2024 Red Blood Cell Morphology NORM C+C NORMAL NORM C&C [facility] Segmented neutrophils/100 WB C (Bld)Ordered By: Molly Lizarraga on 11-17-2024 Neutrophils/100 WBC (Bld) 85 % High 47-70 [facility] Urine blood detectionOrdered By: Molly Lizarraga on 11-17-2024 Urine Occult Blood 10 /ul High Negative [facility] Urine clarityOrdered By: Amanda Lizarraga on 11-17-2024 Clarity (U) Clear Clear [facility] Urine color determinationOrd ered By: Molly Lizarraga on 11-17-2024 Color (U) Yellow Yellow [facility] Urine cultureOrdered By: Amanda Lizarraga on 11-17-2024 Bacteria identified Cx Nom (U) Culture exhibits no growth. [facility] Urine leukocyte esterase det ection by dipstickOrdered By: Molly Lizarraga on 11-17-2024 Leukocyte esterase Test strip Ql (U) 25 /ul High Negative [facility] Urine pHOrdered By: Molly morel on 11-17-2024 pH (U) 6.5 [pH] 5.0 - 8.0 [facility] Urine sediment bacteria coun t by microscopy (number/high power field)Ordered By: Molly Lizarraga on 11-17-2024 Bacteria LM.HPF (Urine sed) [#/Area] 0 /[HPF] None Seen [facility] Urine specific gravity measu rementOrdered By: Molly Lizarraga on 11-17-2024 Specific gravity (U) [Rel density] 1.005 1.002-1.030 [facility] Urobilinogen Ql (U)Ordered B y: Molly Lizarraga on 11-17-2024 Urobilinogen (U) [Mass/Vol] 1 mg/dL High Normal [facility] Venous Blood Gason 5 Blood Gas Type KAILEY Normal [facility] Comment on above: Performed By: #### L 9000.0810 ####[facility] [address] [place], [place], [address] CO2 [Moles/Vol] 26 mmol/L Normal 23-33 [facility] Comment on above: Performed By: #### L 9000.0810 ####[facility] [address] [place], [place], [address] FI02 3.0 Normal [facility] Comment on above: Performed By: #### L 9000.0810 ####[facility] [address] [place], [place], [id number] HCO3 (Bld) [Moles/Vol] 25 mmol/L Normal 22-26 [facility] Comment on above: Performed By: #### L 9000.0810 ####[facility] [address] [place], [address] O2 Delivery Dev Cannula Normal [facility] Comment on above: Performed By: #### L 900.0810 ####[facility] [address] [place], [address] SITE Not entered Normal [facility] Comment on above: Performed By: #### L 900.0810 ####[facility] [address] [place], [address] VBG BE 1 mmol/L Normal -1.0-3.5 [facility] Comment on above: Performed By: #### L 900.0810 ####[facility] [address] [place], [address] VBG pCO2 35.3 mmHg Low 41-51 [facility] Comment on above: Performed By: #### L 9000.0810 ####[facility] [address] [place], [address] VBG pH 7.45 High 7.32-7.42 [facility] Comment on above: Performed By: #### L 9000.0810 ####[facility] [address] [place], [address] VBG PO2 54 mmHg High 25-40 [facility] Comment on above: Performed By: #### L 9000.0810 ####[facility] [address] [place], [address] VBG SO2 89 High 50-70 [facility] Comment on above: Performed By: #### L 9000.0810 ####[facility] [address] [place], [address] Venous blood bicarbonate [place] surementOrdered By: Molly Lizarraga on 11-17-2024 HCO3 (Bld) [Moles/Vol] 25 mmol/L 22- [facility] Venous blood oxygen saturati on measurementOrdered By: Molly Lizarraga on 11-17-2024 Oxygen saturation in Blood 89 % High 50-70 [facility] White blood cell countOrdere d By: Molly Lizarraga on 11-17-2024 Urine WBC 0 SEEN /hpf 0-5 [facility] pH (BldV)Ordered By: Molly Lizarraga on 11-17-2024 Venous Blood pH 7.45 High 7.32-7.42 [facility] CA 19-9 Serial Monitoron CA 19-9 15 U/mL Normal 0-35 [facility] Comment on above: Result Comment: [facility] Electrochemiluminescence Immunoassay(ECLIA)Values obtained with different assay methods or kits cannotbe used interchangeably. Results cannot be interpreted asabsolute evidence of the presence or absence of malignantdisease.Performed at: [facility] [address] [id number] Director: Dieudonne Mcdonnell PhD, Phone: [phone] Performed By: #### L 3100.5017 ####[facility] [address] [place], [place], [id number] Cancer antigen 19-9 measurem entOrdered By: Jannie Souza on 10-30-2024 CA 19-9 Antigen 15 U/mL 0-35 [facility] Comment on above: [facility] El ectrochemiluminescence Immunoassay(ECLIA)Values obtained with different assay methods or kits cannotbe used interchangeably. Results cannot be interpreted asabsolute evidence of the presence or absence of malignantdisease.Performed at: [facility] [id number] Director: Dieudonne Mcdonnell PhD, Phone: [phone] No Panel InformationOrdered By: Jannie Souza on 10-30-2024 CA 19-9 Antigen Serial Monitoring Not Reportable [facility] 12 Lead EKGon 10-25-2024 12 Lead EKG Normal [facility] CBC W/Diff, Automatedon Absolute Neut Normal 2.0-7.7 [facility] Comment on above: Result Comment: Canc elled via OM: MD Ordered Performed By: #### L 100.0100 ####[facility] [address] [place], [address] HCT Normal 40-54 [facility] Comment on above: Result Comment: Canc elled via OM: MD Ordered Performed By: #### L 100.0100 ####[facility] [address] [place], [address] HGB Normal 13.0-16.5 [facility] Comment on above: Result Comment: Canc elled via OM: MD Ordered Performed By: #### L 100.0100 ####[facility] [address] [place], [address] MCH Normal 27.0-32.0 [facility] Comment on above: Result Comment: Canc elled via OM: MD Ordered Performed By: #### L 100.0100 ####[facility] [address] [place], [address] MCHC Normal 32-36 [facility] Comment on above: Result Comment: Canc elled via OM: MD Ordered Performed By: #### L 100.0100 ####[facility] [address] [place], [address] MCV Normal 80-94 [facility] Comment on above: Result Comment: Canc elled via OM: MD Ordered Performed By: #### L 100.0100 ####[facility] [address] [place], [address] NEUT% Normal 47-70 [facility] Comment on above: Result Comment: Canc elled via OM: MD Ordered Performed By: #### L 100.0100 ####[facility] [address] [place], [address] PLT Normal 150-450 [facility] Comment on above: Result Comment: Canc elled via OM: MD Ordered Performed By: #### L 100.0100 ####[facility] [address] [place], [address] RBC Normal 4.6-6.2 [facility] Comment on above: Result Comment: Canc elled via OM: MD Ordered Performed By: #### L 100.0100 ####[facility] [address] [place], [address] RDW CV Normal 11.6-14.6 [facility] Comment on above: Result Comment: Canc elled via OM: MD Ordered Performed By: #### L 100.0100 ####[facility] [address] [place], [address] RDW SD Normal 35.1-43.9 [facility] Comment on above: Result Comment: Canc elled via OM: MD Ordered Performed By: #### L 100.0100 ####[facility] [address] [place], [address] WBC Normal 4.4-11.0 [facility] Comment on above: Result Comment: Canc elled via OM: MD Ordered Performed By: #### L 100.0100 ####[facility] [address] [place], [address] ERCP Biliary/Pancreason ERCP Biliary/Pancreas Normal [facility] ERCP Reporton 10-25-2024 ERCP Report Normal [facility] Emergency Department Summary on 10-25-2024 Emergency Department Summary Normal [facility] MR/POSTOP.ANEon 10-25-2024 MR/POSTOP.ANE Normal [facility] MR/JRNUJMQL0il 10-25-2024 MR/POSTOPAN2 Normal [facility] Special Stain Group IIon Special Stain Group II Normal [facility] Comment on above: Performed By: #### P SSII ####[facility] [address] [place], [address] Abdomen/Pelvis W IV Cont ONL Yon 10-24-2024 Abdomen/Pelvis W IV Cont ONLY Normal [facility] Absolute neutrophil countOrd ered By: Molly Lizarraga on 10-24-2024 Neutrophils (Bld) [#/Vol] 4.7 10*3/uL 2.0-7.7 [facility] Albumin to globulin ratioOrd ered By: Jannie Souza on 10-24-2024 Albumin/Globulin [Mass ratio] 0.6 {ratio} Low 0.9-2.4 [facility] Basophil percentageOrdered B y: Molly Lizarraga on 10-24-2024 Basophils/100 WBC (Bld) 0.3 % 0-1 [facility] Bilirubin directOrdered By: Jannie Souza on 10-24-2024 Bilirubin.direct [Mass/Vol] 5.11 mg/dL High 0.00-0.30 [facility] Bilirubin, Directon 10-24-19 25 Bilirubin.direct [Mass/Vol] 5.11 mg/dL High 0.00-0.30 [facility] Comment on above: Performed By: #### L 501.4700, L501.2450, L500.4050 ####[facility] [address] [place], [address] Bilirubin, totalOrdered By: Jannie Souza on 10-24-2024 Bilirubin [Mass/Vol] 6.50 mg/dL High 0.20-1.00 [facility] Comment on above: For patients on eltr ombopag therapy, use of Dimension [place] TBIL is not recommended. Blood urea nitrogen (BUN)/cr eatinine ratioOrdered By: Jannie Souza on 10-24-2024 Urea nitrogen/Creatinine [Mass ratio] 19.9 mg/mg 10-20 [facility] CBC W/Diff, Automatedon Absolute Lymph 0.79 X10 3/uL Low 0.83-4.51 [facility] Comment on above: Performed By: #### L 300.3900, L100.0100 ####[facility] [address] [place], [address] Absolute Neut 4.7 X10 3/uL Normal 2.0-7.7 [facility] Comment on above: Performed By: #### L 300.3900, L100.0100 ####[facility] [address] [place], [address] Basophils/100 WBC (Bld) 0.3 % Normal 0-1 [facility] Comment on above: Performed By: #### L 300.3900, L100.0100 ####[facility] [address] [place], [address] Eosinophils/100 WBC (Bld) 0.8 % Normal 0-5 [facility] Comment on above: Performed By: #### L 300.3900, L100.0100 ####[facility] [address] [place], [address] Erythrocyte distribution width (RBC) [Ratio] 14.9 % High 11.6-14.6 [facility] Comment on above: Performed By: #### L 300.3900, L100.0100 ####[facility] [address] [place], [address] Hematocrit (Bld) [Volume fraction] 34.5 % Low 40-54 [facility] Comment on above: Performed By: #### L 300.3900, L100.0100 ####[facility] [address] [place], [address] Hemoglobin (Bld) [Mass/Vol] 12.1 g/dL Low 13.0-16.5 [facility] Comment on above: Performed By: #### L 300.3900, L100.0100 ####[facility] [address] [place], [address] IG% 0.500 Normal 0.0-0.9 [facility] Comment on above: Result Comment: IG% - Immature Granulocytes (promyelocytes, myelocytes andmetamyelocytes) > 1% indicates that a LEFT SHIFT is Present. Performed By: #### L 300.3900, L100.0100 ####[facility] [address] [place], [address] Lymphocytes/100 WBC (Bld) 12.8 % Low 19-41 [facility] Comment on above: Performed By: #### L 300.3900, L100.0100 ####[facility] [address] [place], [address] MCH (RBC) [Entitic mass] 33.4 pg High 27.0-32.0 [facility] Comment on above: Performed By: #### L 300.3900, L100.0100 ####[facility] [address] [place], [address] MCHC (RBC) [Mass/Vol] 35.1 g/dL Normal 32-36 [facility] Comment on above: Performed By: #### L 300.3900, L100.0100 ####[facility] [address] [place], [address] MCV (RBC) [Entitic vol] 95.3 fL High 80-94 [facility] Comment on above: Performed By: #### L 300.3900, L100.0100 ####[facility] [address] [place], [address] Monocytes/100 WBC (Bld) 8.9 % Normal 0-10 [facility] Comment on above: Performed By: #### L 300.3900, L100.0100 ####[facility] [address] [place], [address] Neutrophils/100 WBC (Bld) 76.7 % High 47-70 [facility] Comment on above: Performed By: #### L 300.3900, L100.0100 ####[facility] [address] [place], [address] Nucleated RBC (Bld) [#/Vol] 0 10*3/uL Normal 0-5 [facility] Comment on above: Performed By: #### L 300.3900, L100.0100 ####[facility] [address] [place], [address] Platelet mean volume (Bld) [Entitic vol] 9.7 fL Normal 6.2-12.0 [facility] Comment on above: Performed By: #### L 300.3900, L100.0100 ####[facility] [address] [place], [address] Platelets (Bld) [#/Vol] 278 10*3/uL Normal 150-450 [facility] Comment on above: Performed By: #### L 300.3900, L100.0100 ####[facility] [address] [place], [address] RBC (Bld) [#/Vol] 3.62 10*6/uL Low 4.6-6.2 [facility] Comment on above: Performed By: #### L 300.3900, L100.0100 ####[facility] [address] [place], [address] RDW SD 52.7 fl High 35.1-43.9 [facility] Comment on above: Performed By: #### L 300.3900, L100.0100 ####[facility] [address] [place], [address] WBC (Bld) [#/Vol] 6.2 10*3/uL Normal 4.4-11.0 [facility] Comment on above: Performed By: #### L 300.3900, L100.0100 ####[facility] [address] [place], [address] Carbon dioxide measurementOr dered By: Jannie Souza on 10-24-2024 CO2 [Moles/Vol] 28.0 mmol/L 21.0-32.0 [facility] Chloride measurementOrdered By: Jannie Souza on 10-24-2024 Chloride [Moles/Vol] 102 mmol/L 98-107 [facility] Comprehensive Metabolic Prof ilon 10-24-2024 Albumin [Mass/Vol] 2.9 g/dL Low 3.2-5.0 [facility] Comment on above: Performed By: #### L 501.4700, L501.2450, L500.4050 ####[facility] [address] [place], [address] Albumin/Globulin [Mass ratio] 0.6 {ratio} Low 0.9-2.4 [facility] Comment on above: Performed By: #### L 501.4700, L501.2450, L500.4050 ####[facility] [address] [place], [address] ALK P 1010 U/L High 45-117 [facility] Comment on above: Performed By: #### L 501.4700, L501.2450, L500.4050 ####[facility] [address] [place], [address] ALT [Catalytic activity/Vol] 162 U/L High 16-61 [facility] Comment on above: Performed By: #### L 501.4700, L501.2450, L500.4050 ####[facility] [address] [place], [address] AST [Catalytic activity/Vol] 193 U/L High 15-37 [facility] Comment on above: Performed By: #### L 501.4700, L501.2450, L500.4050 ####[facility] [address] [place], [address] Bilirubin [Mass/Vol] 6.50 mg/dL High 0.20-1.00 [facility] Comment on above: Result Comment: For patients on eltrombopag therapy, use of Dimension [place] TBIL is not recommended. Performed By: #### L 501.4700, L501.2450, L500.4050 ####[facility] [address] [place], [address] BUN/CRE 19.9 RATIO Normal 10-20 [facility] Comment on above: Performed By: #### L 501.4700, L501.2450, L500.4050 ####[facility] [address] [place], [address] CA,Total 9.2 mg/dL Normal 8.5-10.1 [facility] Comment on above: Performed By: #### L 501.4700, L501.2450, L500.4050 ####[facility] [address] [place], [address] Chloride [Moles/Vol] 102 mmol/L Normal 98-107 [facility] Comment on above: Performed By: #### L 501.4700, L501.2450, L500.4050 ####[facility] [address] [place], [address] CO2 [Moles/Vol] 28.0 mmol/L Normal 21.0-32.0 [facility] Comment on above: Performed By: #### L 501.4700, L501.2450, L500.4050 ####[facility] [address] [place], [address] Creatinine [Mass/Vol] 0.85 mg/dL Normal 0.70-1.30 [facility] Comment on above: Result Comment: The validity of the calculated GFR GFRAA in patients over70 years has not been determined. Clinical correlation isessential. Performed By: #### L 501.4700, L501.2450, L500.4050 ####[facility] [address] [place], [address] EST GFR - AA 112 mL/min Normal >60 [facility] Comment on above: Result Comment: Afri can [place] GFR Calc Performed By: #### L 501.4700, L501.2450, L500.4050 ####[facility] [address] [place], [address] GAP 6 Normal 5-15 [facility] Comment on above: Performed By: #### L 501.4700, L501.2450, L500.4050 ####[facility] [address] [place], [address] GFR/1.73 sq M.predicted among non-blacks MDRD (S/P/Bld) [Vol rate/Area] 93 mL/min/{1.73_m2} Normal >60 [facility] Comment on above: Result Comment: Non- GFR Calc Performed By: #### L 501.4700, L501.2450, L500.4050 ####[facility] [address] [place], [address] Globulin (S) [Mass/Vol] 4.5 g/dL High 2.2-4.2 [facility] Comment on above: Performed By: #### L 501.4700, L501.2450, L500.4050 ####[facility] [address] [place], [address] Glucose [Mass/Vol] 107 mg/dL High 74-106 [facility] Comment on above: Result Comment: Fast ing Glucose result from 100 to 125 mg/dLsuggests IMPAIRED HOMEOSTASIS per A.D.A. criteria. Performed By: #### L 501.4700, L501.2450, L500.4050 ####[facility] [address] [place], [address] Potassium [Moles/Vol] 4.1 mmol/L Normal 3.5-5.1 [facility] Comment on above: Performed By: #### L 501.4700, L501.2450, L500.4050 ####[facility] [address] [place], [address] Sodium [Moles/Vol] 136 mmol/L Normal 136-145 [facility] Comment on above: Performed By: #### L 501.4700, L501.2450, L500.4050 ####[facility] [address] [place], [address] T PROT 7.4 g/dL Normal 6.4-8.2 [facility] Comment on above: Performed By: #### L 501.4700, L501.2450, L500.4050 ####[facility] [address] [place], [address] Urea nitrogen [Mass/Vol] 17 mg/dL Normal 7-18 [facility] Comment on above: Performed By: #### L 501.4700, L501.2450, L500.4050 ####[facility] [address] [place], [address] Emergency Department Summary on 10-24-2024 Emergency Department Summary Normal [facility] Eosinophil percentageOrdered By: Molly Lizarraga on 10-24-2024 Eosinophils/100 WBC (Bld) 0.8 % 0-5 [facility] Erythrocyte distribution wid th ratioOrdered By: Molly Lizarraga on 10-24-2024 Erythrocyte distribution width (RBC) [Ratio] 14.9 % High 11.6-14.6 [facility] Erythrocyte distribution wid th standard deviationOrdered By: Molly Lizarraga on 10-24-2024 Erythrocyte distribution width (RBC) [Entitic vol] 52.7 fL High 35.1-43.9 [facility] Estimated glomerular filtrat ion rate (GFR) AmericanOrdered By: Jannie Souza on 10-24-2024 Estimated GFR (MDRD) Amer 112 mL/min >60 [facility] Comment on above: GFR Calc Gallbladderon 10-24-2024 Gallbladder Normal [facility] Gastroenterology Visit Repor ton 10-24-2024 Gastroenterology Visit Report Normal [facility] Glomerular filtration rate ( GFR) estimationOrdered By: Jannie Souza on 10-24-2024 Estimated GFR (MDRD) Non-Af Amer 93 mL/min >60 [facility] Comment on above: Non- GFR Calc Glucose measurementOrdered B y: Jannie Souza on 10-24-2024 Glucose [Mass/Vol] 107 mg/dL High 74-106 [facility] Comment on above: Fasting Glucose resu lt from 100 to 125 mg/dL suggests IMPAIRED HOMEOSTASIS per A.D.A. criteria. Hematocrit Auto (Bld) [Volum e fraction]Ordered By: Molly Lizarraga on 10-24-2024 Hematocrit (Bld) [Volume fraction] 34.5 % Low 40-54 [facility] Hemoglobin measurementOrdere d By: Molly Lizarraga on 10-24-2024 Hemoglobin (Bld) [Mass/Vol] 12.1 g/dL Low 13.0-16.5 [facility] Immature granulocytes/100 WB C Auto (Bld)Ordered By: Molly Lizarraga on 10-24-2024 Immature granulocytes/100 WBC (Bld) 0.500 % 0.0-0.9 [facility] Comment on above: IG% - Immature Granu locytes (promyelocytes, myelocytes and metamyelocytes) > 1% indicates that a LEFT SHIFT is Present. International normalized rat io (INR) calculationOrdered By: Molly Lizarraga on 10-24-2024 INR Coag (Bld) [Relative time] 1.1 {INR} [facility] Laboratory - Chemistry and C hemistry - challengeOrdered By: Jannie Souza on 10-24-2024 AST [Catalytic activity/Vol] 193 U/L High 15-37 [facility] Lipaseon 10-24-2024 Lipase [Catalytic activity/Vol] 16 U/L Normal 13-75 [facility] Comment on above: Result Comment: Margaret smith note:LIPASE revised reference range effective 23.New Lipase methodology. Expected to produce lower valuesthan the previous assay method.NEW Reference Range: 13 - 75 U/L Performed By: #### L 501.4700, L501.2450, L500.4050 ####[facility] [address] [place], [address] Lipase measurementOrdered By : Jannie Souza on 10-24-2024 Lipase [Catalytic activity/Vol] 16 U/L 13-75 [facility] Comment on above: Please note:LIPASE r evised reference range effective 23. New Lipase methodology. Expected to produce lower values than the previous assay method. NEW Reference Range: 13 - 75 U/L Lymphocytes Auto (Unsp spec) [#/Vol]Ordered By: Molly Lizarraga on 10-24-2024 Lymphocytes (Bld) [#/Vol] 0.79 10*3/uL Low 0.83-4.51 [facility] Lymphocytes/100 WBC Auto (Un sp spec)Ordered By: Molly Lizarraga on 10-24-2024 Lymphocytes/100 WBC (Bld) 12.8 % Low 19-41 [facility] MCV (mean corpuscular volume ) determinationOrdered By: Molly Lizarraga on 10-24-2024 MCV (RBC) [Entitic vol] 95.3 fL High 80-94 [facility] Mean corpuscular hemoglobin (MCH) determinationOrdered By: Molly Lizarraga on 10-24-2024 MCH (RBC) [Entitic mass] 33.4 pg High 27.0-32.0 [facility] Mean corpuscular hemoglobin concentration (MCHC) determinationOrdered By: Molly Lizarraga on 10-24-2024 MCHC (RBC) [Mass/Vol] 35.1 g/dL 32-36 [facility] Mean platelet volume determi nationOrdered By: Molly Lizarraga on 10-24-2024 Platelet mean volume (Bld) [Entitic vol] 9.7 fL 6.2-12.0 [facility] Monocyte percentageOrdered B y: Molly Lizarraga on 10-24-2024 Monocytes/100 WBC (Bld) 8.9 % 0-10 [facility] Neutrophil percentageOrdered By: Molly Lizarraga on 10-24-2024 Neutrophils/100 WBC (Bld) 76.7 % High 47-70 [facility] Nucleated red blood cell per centageOrdered By: Molly Lizarraga on 10-24-2024 Nucleated RBC/100 WBC (Bld) [Ratio] 0 % 0-5 [facility] Platelet countOrdered By: Kareem Lizarraga on 10-24-2024 Platelets (Bld) [#/Vol] 278 10*3/uL 150-450 [facility] Potassium measurementOrdered By: Jannie Souza on 10-24-2024 Potassium [Moles/Vol] 4.1 mmol/L 3.5-5.1 [facility] Prothrombin Time w/INRon INR Coag (PPP) [Relative time] 1.1 {INR} Normal [facility] Comment on above: Performed By: #### L 300.3900, L100.0100 ####[facility] [address] [place], [address] PT Coag (PPP) [Time] 14.6 s Normal 11.7-14.9 [facility] Comment on above: Performed By: #### L 300.3900, L100.0100 ####[facility] [address] [place], [address] Prothrombin timeOrdered By: Molly Lizarraga on 10-24-2024 PT Coag (PPP) [Time] 14.6 s 11.7-14.9 [facility] RBC Auto (Bld) [#/Vol]Ordere d By: Molly Lizarraga on 10-24-2024 RBC (Bld) [#/Vol] 3.62 10*6/uL Low 4.6-6.2 [facility] Serum anion gap measurementO rdered By: Jannie Souza on 10-24-2024 Anion gap [Moles/Vol] 6 mmol/L 5-15 [facility] Serum globulin measurementOr dered By: Jannie Souza on 10-24-2024 Globulin (S) [Mass/Vol] 4.5 g/dL High 2.2-4.2 [facility] Serum or plasma alanine spangler otransferase (ALT) measurementOrdered By: Jannie Souza on 10-24-2024 ALT [Catalytic activity/Vol] 162 U/L High 16-61 [facility] Serum or plasma albumin marques urement (mass/volume)Ordered By: Jannie Souza on 10-24-2024 Albumin [Mass/Vol] 2.9 g/dL Low 3.2-5.0 [facility] Serum or plasma alkaline benji sphatase measurementOrdered By: Jannie Souza on 10-24-2024 ALP [Catalytic activity/Vol] 1010 U/L High 45-117 [facility] Serum or plasma calcium marques urement (mass/volume)Ordered By: Jannie Souza on 10-24-2024 Calcium [Mass/Vol] 9.2 mg/dL 8.5-10.1 [facility] Serum or plasma creatinine m easurement (mass/volume)Ordered By: Jannie Souza on 10-24-2024 Creatinine [Mass/Vol] 0.85 mg/dL 0.70-1.30 [facility] Comment on above: The validity of the calculated GFR & GFRAA in patients over 70 years has not been determined. Clinical correlation is essential. Serum or plasma urea nitroge n measurement (mass/volume)Ordered By: Jannie Souza on 10-24-2024 Urea nitrogen [Mass/Vol] 17 mg/dL 7-18 [facility] Sodium levelOrdered By: Zachariah Souza on 10-24-2024 Sodium [Moles/Vol] 136 mmol/L 136-145 [facility] Total proteinOrdered By: Priya Souza on 10-24-2024 Protein [Mass/Vol] 7.4 g/dL 6.4-8.2 [facility] White blood cell (WBC) count Ordered By: Molly Lizarraga on 10-24-2024 WBC (Bld) [#/Vol] 6.2 10*3/uL 4.4-11.0 [facility] CNPNon 10-12-2024 CNPN Normal [facility] [facility] C diff Tox gens Stl Ql ELISA+p robeon 10-09-2024 C. difficile toxin genes ELISA+probe Ql (Stl) Negative Normal Negative for C. difficile toxin by PCR [facility] Comment on above: Order Comment: Speci men Type: STOOL SPECIMENOrdering Facility: [facility] Address: [address] [place] [address] Performed By: #### 5 4067-4, PANCEF, 01427-6 ####[facility] LABIA [id number] [place] [address] [place] G lamblia+Cryptosp Ag Stl Ql IAon 10-09-2024 G. lamblia+Cryptosporidiu m sp Ag IA Ql (Stl) CRYPTOSPORIDIUM ANTIGEN BY EIA: Negative for Cryptosporidium by EIA. GIARDIA ANTIGEN BY EIA: Negative for Giardia lamblia by EIA. Normal [facility] Comment on above: Performed By: #### 4 8059-0, 28141-7 ####[facility] [id number] [place] [address] [place] Gastrointestinal pathogens i dentified ELISA+probe Nom (Stl)on 10-09-2024 Campylobacter sp DNA ELISA+probe Nom (Unsp spec) Not detected Normal Not Detected [facility] Comment on above: Order Comment: Speci men Type: STOOL SPECIMENOrdering Facility: [facility] Address: [address] [place] [address] Performed By: #### 4 8059-0, 21269-4 ####[facility] [id number] [place] [address] [place] Salmonella sp DNA LEISA+probe Ql (Unsp spec) Not detected Normal Not Detected [facility] Comment on above: Order Comment: Speci men Type: STOOL SPECIMENOrdering Facility: [facility] Address: [address] [place] [address] Performed By: #### 4 8059-0, 07784-6 ####[facility] LABCLIA [id number] [place] [address] [place] Shiga toxin stx gene ELISA+probe Nom (Unsp spec) Not detected Normal Not Detected [facility] Comment on above: Order Comment: Speci men Type: STOOL SPECIMENOrdering Facility: [facility] Address: [address] [place] [address] Performed By: #### 4 8059-0, 01231-2 ####[facility] LABCLIA [id number] [place] [address] [place] Shigella sp DNA ELISA+probe Ql (Unsp spec) Not detected Normal Not Detected [facility] Comment on above: Order Comment: Speci men Type: STOOL SPECIMENOrdering Facility: [facility] Address: [address] [place] [address] Performed By: #### 4 8059-0, 89440-6 ####[facility] LABCLIA [id number] [place] [address] [place] H pylori Ag Stl Ql IAon 09-17 H. 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 Normal [facility] Comment on above: Order Comment: Speci men Type: STOOL SPECIMENOrdering Facility: [facility] Address: [address] [place] [address] Performed By: #### 5 4067-4, PANCEF, 58061-9 ####[facility] LABIA [id number] [place] [address] [place] ELASTASE-1 CONCENTRATION 37 ug/g Low >=200 [facility] Comment on above: Order Comment: Speci men Type: STOOL SPECIMENOrdering Facility: [facility] Address: [address] [place] [address] Result Comment: Inte rpretation:<100 ug/g: Severe Exocrine Pancreatic [id number] ug/g: Mild to Moderate Exocrine Pancreatic Insufficiency>=200 ug/g: Normal Performed By: #### 5 4067-4, PANCEF, 87306-2 ####[facility] LABCLIA [id number] [place] [address] [place] CNPNon 10-08-2024 CNPN Normal [facility] CNPNon 10-07-2024 CNPN Normal [facility] Bacteria Ur Culton Bacteria identified Cx Nom (U) CULTURE, URINE: No growth (<1,000 CFU/ml) Normal [facility] Comment on above: Performed By: #### 6 30-4 ####[facility] LABCLIA [id number] [place] [address] [place] CNOVon 10-05-2024 CNOV Normal [facility] CNPNon 10-05-2024 CNPN Normal [facility] UA DIP, URINE (POC)on 2023 BILIRUBIN UA (POCT) Small Abnormal Negative [facility] CLARITY UA (POCT) Clear [facility] COLOR UA (POCT) Pavithra [facility] GLUCOSE UA (POCT) Negative Negative mg/dL [facility] Hemoglobin Ql (U) Negative Negative [facility] Interpretation and review of laboratory results Abnormal [facility] KETONE UA (POCT) Negative Negative mg/dL [facility] LEUKOCYTES UA (POCT) Negative Negative [facility] NITRITE UA (POCT) Negative Negative [facility] PH UA (POCT) 6.0 4.5 - 8.[address] [facility] Protein Ql (U) Negative Negative mg/dL [facility] SPECIFIC GRAVITY UA (POCT) 1.020 1.005 - 1.[address] [facility] UROBILINOGEN UA (POCT) 2.0 Abnormal Elissa l E.U./dL [facility] Location:[facility], [address], [place], [address] [facility] POINT OF CARE [facility] CBC W Auto Differential pane l (Bld)on 11-14-2023 Basophils (Bld) [#/Vol] 0.03 10*3/uL [facility] Basophils/100 WBC (Bld) 0.5 % [facility] Differential cell count method Nom (Bld) Auto [facility] Eosinophils (Bld) [#/Vol] 0.06 10*3/uL [facility] Eosinophils/100 WBC (Bld) 1.1 % [facility] Erythrocyte distribution width (RBC) [Ratio] 12.7 % 11.5 - 15.0 % [facility] Hematocrit (Bld) [Volume fraction] 40.8 % 39.0 - 51.0 % [facility] Hemoglobin (Bld) [Mass/Vol] 13.8 g/dL 13.0 - 17.0 g/dL [facility] Immature granulocytes (Bld) [#/Vol] [facility] Immature granulocytes/100 WBC (Bld) 0.2 % [facility] Lymphocytes (Bld) [#/Vol] 1.43 10*3/uL [facility] Lymphocytes/100 WBC (Bld) 25.8 % [facility] MCH (RBC) [Entitic mass] 32.2 pg 26.0 - 34.[address] [facility] MCHC (RBC) [Mass/Vol] 33.8 g/dL 30.5 - 36.0 g/dL [facility] MCV (RBC) [Entitic vol] 95.1 fL 80.0 - 100.[address] [facility] Monocytes (Bld) [#/Vol] 0.49 10*3/uL [facility] Monocytes/100 WBC (Bld) 8.8 % [facility] Neutrophils (Bld) [#/Vol] 3.52 10*3/uL [facility] Neutrophils/100 WBC (Bld) 63.6 % [facility] Nucleated RBC (Bld) [#/Vol] [facility] Nucleated RBC/100 WBC (Bld) [Ratio] 0.0 % /[address] [facility] Platelet mean volume (Bld) [Entitic vol] 9.6 fL 9.0 - 12.[address] [facility] Platelets (Bld) [#/Vol] 205 10*3/uL [facility] RBC (Bld) [#/Vol] 4.29 10*6/uL 4.20 - 6.0 0 m/uL [facility] WBC (Bld) [#/Vol] 5.54 10*3/uL [facility] Comprehensive metabolic 2000 panelOrdered By: Lesly Lopes on 11-14-2023 Albumin [Mass/Vol] 4.3 g/dL 3.9 - 4.9 g/dL [facility] ALP [Catalytic activity/Vol] 86 U/L 38 - 113 U/L [facility] ALT [Catalytic activity/Vol] 24 U/L 10 - 54 U/L [facility] Anion gap [Moles/Vol] 7 mmol/L Low 9 - 18 mmol/L [facility] AST [Catalytic activity/Vol] 46 U/L High 14 - 40 U/L [facility] Bilirubin [Mass/Vol] 1.3 mg/dL 0.2 - 1 .3 mg/dL [facility] Calcium [Mass/Vol] 9.3 mg/dL 8.5 - 10. 2 mg/dL [facility] Chloride [Moles/Vol] 103 mmol/L 97 - 10 5 mmol/L [facility] CO2 [Moles/Vol] 27 mmol/L 22 - 30 mmol/L [facility] Creatinine [Mass/Vol] 0.94 mg/dL 0.73 - 1.22 mg/dL [facility] GFR/1.73 sq M.predicted among non-blacks MDRD (S/P/Bld) [Vol rate/Area] 84 mL/min/{1.73_m2} - PINF [facility] Comment on above: Estimated Glomerular Filtration Rate (eGFR) is calculated using the 2020 CKD-EPI creatinine equation. This equation utilizes serum creatinine, sex, and age as parameters. The creatinine assay has traceable calibration to isotope dilution-mass spectrometry. Refer to KDIGO guidelines for clinical interpretation. In patients with unstable renal function, e.g. those with acute kidney injury, the eGFR may not accurately reflect actual GFR. Glucose [Mass/Vol] 95 mg/dL 74 - 99 mg/dL [facility] Comment on above: The [place] Diabete s Association (ADA) provides guidance for cutoff values for fasting glucose and random glucose. The ADA defines fasting as no caloric intake for at least 8 hours. Fasting plasma glucose results between 100 to 125 mg/dL indicate increased risk for diabetes (prediabetes). Fasting plasma glucose results greater than or equal to 126 mg/dL meet the criteria for diagnosis of diabetes. In the absence of unequivocal hyperglycemia, results should be confirmed by repeat testing. In a patient with classic symptoms of hyperglycemia or hyperglycemic crisis, random plasma glucose results greater than or equal to 200 mg/dL meet the criteria for diagnosis of diabetes. Reference: Standards of Medical Care in Diabetes 2016, [place] [employer]. Diabetes Care. 2016.39(Suppl 1). Interpretation and review of laboratory results Abnormal [facility] Potassium [Moles/Vol] 4.2 mmol/L 3.7 - 5.1 mmol/L [facility] Protein [Mass/Vol] 7.2 g/dL 6.3 - 8.0 g/dL [facility] Sodium [Moles/Vol] 137 mmol/L 136 - 144 mmol/L [facility] Urea nitrogen [Mass/Vol] 28 mg/dL High 9 - 24 mg/dL [facility] Free T4 [Mass/Vol]on 024 Interpretation and review of laboratory results Abnormal [facility] HbA1c (Bld)on 11-14-2023 Average glucose Estimated from glycated hemoglobin (Bld) [Mass/Vol] 123 mg/dL [facility] Comment on above: eAG: (Estimated aver age glucose) is a calculated value from HgbA1c and is textile machinery sales representative of the average blood glucose level in the last 2-3 month period. HbA1c (Bld) [Mass fraction] 5.9 % High 4.3 - 5.6 % [facility] Comment on above: [place] Diabetes As sociation guidelines indicate that patients with HgbA1c in the range 5.7-6.4% are at increased risk for development of diabetes, and intervention by lifestyle modification may be beneficial. HgbA1c greater or equal to 6.5% is considered diagnostic of diabetes. Interpretation and review of laboratory results Abnormal [facility] Lipid 1996 panelon Cholesterol [Mass/Vol] 177 mg/dL NINF - 200 mg/dL [facility] Comment on above: <200 mg/dL, Desirabl e 200-239 mg/dL, Borderline high >239 mg/dL, High Cholesterol in HDL [Mass/Vol] 54 mg/dL 39 - PINF mg/dL [facility] Comment on above: 40-59 mg/dL, Accepta ble >59 mg/dL, High: Negative risk factor for coronary heart disease <40 mg/dL, Low: Positive risk factor for coronary heart disease Cholesterol in LDL [Mass/Vol] 115 mg/dL High NINF - 100 mg/dL [facility] Comment on above: <100 mg/dL, Optimal 100-129 mg/dL, Near optimal/above optimal 130-159 mg/dL, Borderline high 160-189 mg/dL, High >189 mg/dL, Very high Secondary prevention optimal LDL Cholesterol levels are recommended to be < 70 mg/dL Cholesterol in LDL/Cholesterol in HDL [Mass ratio] 2.13 {ratio} NINF - 2.[address] [facility] Comment on above: Reference: 1. National Cholesterol Education Program ATP III Guideline At-A-Glance Quick Desk Reference: National Heart, Lung, and Blood [place]. National Institutes of Health. 2001: [facility] Publication No. 01-3305. 2. An International Atherosclerosis Society position paper: global recommendations for the management of dyslipidemia: executive summary, Atherosclerosis. 2014: 232(2):410-413. Cholesterol in VLDL [Mass/Vol] 8 mg/dL NINF - 30 mg/dL [facility] Cholesterol non HDL [Mass/Vol] 123 mg/dL NINF - 130 mg/dL [facility] Comment on above: <130 mg/dL, Optimal 130-159 mg/dL, Near optimal/above optimal 160-189 mg/dL, Borderline high 190-219 mg/dL, High >219 mg/dL, Very high Secondary prevention optimal non HDL Cholesterol levels are recommended to be <100 mg/dL Cholesterol.total/Chol esterol in HDL [Mass ratio] 3.28 {ratio} NINF - 5.[address] [facility] Fasting Time [address] [facility] Interpretation and review of laboratory results Abnormal [facility] Triglyceride [Mass/Vol] 42 mg/dL NINF - 150 mg/dL [facility] Comment on above: <150 mg/dL, Normal 150-199 mg/dL, Borderline high 200-499 mg/dL, High >499 mg/dL, Very high [facility] No Panel Informationon 11-14 Interpretation and review of laboratory results Normal [facility] T3 BLDon 11-14-2023 T3 [Mass/Vol] 116 ng/dL 79 - 165 ng/dL [facility] T4 FREE/FREE THYROXon 2023 Free T4 [Mass/Vol] 2.0 ng/dL High 0.9 - 1.7 ng/dL [facility] TSH BLDon 11-14-2023 TSH Qn 0.328 m[IU]/L [facility] MRI SHOULDER WO IVCON RTon 0 12-22-[address] [facility] XR Shoulder - right 4 Viewso n 12-03-2022 IMPRESSION: Unremarkable radiograph [facility] Transcribe Date/Time: Dec 03 2022 8:40A Dictated by : VARUN JOHNSON MD This examination was interpreted and the report reviewed and electronically signed by: VARUN JOHNSON MD on Dec 03 2022 8:41AM [facility] DIVISION OF RADIOLOGY * * *Final Report* * * DATE OF EXAM: Nov 29 2022 8:59AM WOX 5605 - XR SHLDR 4V AP/YIFAN/LAT/OUTLET RT / PROCEDURE REASON: multiple diagnoses * * * * Physician Interpretation * * * * Right shoulder HISTORY: Shoulder pain FINDINGS: Three views were performed. No evidence of acute fracture or dislocation. Glenohumeral joint space: maintained Acromio-humeral interval: within normal limits. No evidence of a subacromial spur. Acromio-clavicular joint: Within normal limits. DIVISION OF RADIOLOGY Provider, [facility] - 12/03/2022 * * *Final Report* * * DATE OF EXAM: Nov 29 2022 8:59AM WOX 5605 - XR SHLDR 4V AP/YIFAN/LAT/OUTLET RT / PROCEDURE REASON: multiple diagnoses * * * * Physician Interpretation * * * * Right shoulder HISTORY: Shoulder pain FINDINGS: Three views were performed. No evidence of acute fracture or dislocation. Glenohumeral joint space: maintained Acromio-humeral interval: within normal limits. No evidence of a subacromial spur. Acromio-clavicular joint: Within normal limits. IMPRESSION IMPRESSION: Unremarkable radiograph [facility] [facility] Transcribe Date/Time: Dec 03 2022 8:40A Dictated by : VARUN JOHNSON MD This examination was interpreted and the report reviewed and electronically signed by: VARUN JOHNSON MD on Dec 03 2022 8:41AM EST [facility] XR Shoulder - right 4 ViewsO rdered By: [facility] Provider on 12-03-[address] [facility] XR Shoulder - right 4 Viewso n 11-29-2022 Radiology Study observation (narrative) [facility] Vital Signs Date Time Vital Sign Value Performing Clinician Facility 06-25-2025 08:16-0400 Body temperature 98 [degF] Dr. Efrain Peters DO Work Phone: [facility] 06-25-2025 08:16-0400 Diastolic blood pressure 58 mm[Hg] Dr. Efrain Peters DO Work Phone: [facility] 06-25-2025 08:16-0400 Heart rate 90 /min Dr. Efrain Peters DO Work Phone: 6(504)[phone] [place] [address] 06-25-2025 08:16-0400 Respiratory rate 16 /min Dr. Efrain Peters DO Work Phone: [facility] 06-25-2025 08:16-0400 SaO2% (BldA) [Mass fraction] 98 % Dr. Efrain Peters DO Work Phone: [facility] 06-25-2025 08:16-0400 Systolic blood pressure 94 mm[Hg] Dr. Efrain Peters DO Work Phone: [facility] 06-24-2025 17:36-0400 Body height 175.[address] Efrain Peters DO Work Phone: [facility] 06-24-2025 17:36-0400 Body mass index (BMI) [Ratio] 20.6 kg/m2 Dr. Efrain Peters DO Work Phone: [facility] 06-24-2025 17:36-0400 Body weight 63.[address] Efrain Peters DO Work Phone: [facility] 06-24-2025 16:43-0400 Body temperature 98.4 [degF] Dr. Efrain Peters DO Work Phone: [facility] 06-24-2025 16:43-0400 Diastolic blood pressure 63 mm[Hg] Dr. Efrain Peters DO Work Phone: 4(268)[phone] [place] [address] 06-24-2025 16:43-0400 Heart rate 78 /min Dr. Efrain Peters DO Work Phone: [facility] 06-24-2025 16:43-0400 Respiratory rate 16 /min Dr. Efrain Peters DO Work Phone: 4(804)[phone] [place] [address] 06-24-2025 16:43-0400 SaO2% (BldA) [Mass fraction] 100 % Dr. Efrain Peters DO Work Phone: 7(365)[phone] [place] [address] 06-24-2025 16:43-0400 Systolic blood pressure 96 mm[Hg] Dr. Efrain Peters DO Work Phone: 1(375)[phone] [place] [address] 06-24-2025 09:37-0400 Body height 172.[address] Efrain Peters DO Work Phone: 0(079)[phone] [place] [address] 06-24-2025 09:37-0400 Body mass index (BMI) [Ratio] 22.7 kg/m2 Dr. Efrain Peters DO Work Phone: 5(719)[phone] [place] [address] 06-24-2025 09:37-0400 Body weight 67.[address] Efrain Peters DO Work Phone: 7(423)[phone] [place] [address] 06-11-2025 09:10-0400 Body mass index (BMI) [Ratio] 23.54 kg/m2 Treatment Wstr Work Phone: [facility] 06-11-2025 09:10-0400 Body temperature 97.7 [degF] Treatment [facility]str Work Phone: [facility] 06-11-2025 09:10-0400 Body weight 66.45 kg Treatment Wstr Work Phone: [facility] 06-11-2025 09:10-0400 Diastolic blood pressure 74 mm[Hg] Treatment [facility]str Work Phone: [facility] 06-11-2025 09:10-0400 Heart rate 86 /min Treatment [facility]str Work Phone: [facility] 06-11-2025 09:10-0400 SaO2% (BldA) [Mass fraction] 95 % Treatment [facility]str Work Phone: [facility] 06-11-2025 09:10-0400 Systolic blood pressure 109 mm[Hg] Treatment [facility]str Work Phone: [facility] 06-04-2025 08:54-0400 Body mass index (BMI) [Ratio] 24.35 kg/m2 Treatment [facility]str Work Phone: [facility] 06-04-2025 08:54-0400 Body temperature 97.9 [degF] Treatment [facility]str Work Phone: [facility] 06-04-2025 08:54-0400 Body weight 68.72 kg Treatment [facility]str Work Phone: [facility] 06-04-2025 08:54-0400 Diastolic blood pressure 69 mm[Hg] Treatment [facility]str Work Phone: [facility] 06-04-2025 08:54-0400 Heart rate 84 /min Treatment [facility]str Work Phone: [facility] 06-04-2025 08:54-0400 SaO2% (BldA) [Mass fraction] 96 % Treatment [facility]str Work Phone: [facility] 06-04-2025 08:54-0400 Systolic blood pressure 115 mm[Hg] Treatment Wstr Work Phone: [facility] 05-28-2025 07:51-0400 Body temperature 97.5 [degF] Treatment Wstr Work Phone: [facility] 05-28-2025 07:51-0400 Diastolic blood pressure 59 mm[Hg] Treatment Wstr Work Phone: [facility] 05-28-2025 07:51-0400 Heart rate 97 /min Treatment Wstr Work Phone: [facility] 05-28-2025 07:51-0400 Respiratory rate 20 /min Treatment Wstr Work Phone: [facility] 05-28-2025 07:51-0400 SaO2% (BldA) [Mass fraction] 97 % Treatment [facility]str Work Phone: [facility] 05-28-2025 07:51-0400 Systolic blood pressure 97 mm[Hg] Treatment Wstr Work Phone: [facility] 05-27-2025 09:59-0400 Body mass index (BMI) [Ratio] 24.75 kg/m2 Onel Dumont MD Work Phone: [facility] 05-27-2025 09:59-0400 Body temperature 98.29 [degF] Onel Dumont MD Work Phone: [facility] 05-27-2025 09:59-0400 Body weight 69.85 kg Onel Dumont MD Work Phone: [facility] 05-27-2025 09:59-0400 Diastolic blood pressure 72 mm[Hg] Onel Dumont MD Work Phone: [facility] 05-27-2025 09:59-0400 Heart rate 89 /min Onel Dumont MD Work Phone: [facility] 05-27-2025 09:59-0400 SaO2% (BldA) [Mass fraction] 99 % Onel Dumont MD Work Phone: [facility] 05-27-2025 09:59-0400 Systolic blood pressure 103 mm[Hg] Onel Dumont MD Work Phone: [facility] 05-16-2025 10:32-0400 Diastolic blood pressure 92 mm[Hg] Debra Woods MD Work Phone: [facility] 05-16-2025 10:32-0400 Heart rate 62 /min Debra Woods MD Work Phone: [facility] 05-16-2025 10:32-0400 Respiratory rate 11 /min Debra Woods MD Work Phone: [facility] 05-16-2025 10:32-0400 SaO2% (BldA) [Mass fraction] 100 % Debra Woods MD Work Phone: [facility] 05-16-2025 10:32-0400 Systolic blood pressure 163 mm[Hg] Debra Woods MD Work Phone: [facility] 05-16-2025 09:45-0400 Body temperature 96.49 [degF] Debra Woods MD Work Phone: [facility] 05-07-2025 07:00-0400 Body temperature 97.7 [degF] Treatment Wstr Work Phone: [facility] 05-07-2025 07:00-0400 Diastolic blood pressure 72 mm[Hg] Treatment Wstr Work Phone: [facility] 05-07-2025 07:00-0400 Heart rate 80 /min Treatment [facility]str Work Phone: [facility] 05-07-2025 07:00-0400 Systolic blood pressure 131 mm[Hg] Treatment Wstr Work Phone: [facility] 05-06-2025 10:25-0400 Body mass index (BMI) [Ratio] 25.79 kg/m2 Onel Dumont MD Work Phone: [facility] 05-06-2025 10:25-0400 Body temperature 98.2 [degF] Onel Dumont MD Work Phone: [facility] 05-06-2025 10:25-0400 Body weight 72.8 kg Onel Dumont MD Work Phone: [facility] 05-06-2025 10:25-0400 Diastolic blood pressure 80 mm[Hg] Onel Dumont MD Work Phone: [facility] 05-06-2025 10:25-0400 Heart rate 77 /min Onel Dumont MD Work Phone: [facility] 05-06-2025 10:25-0400 SaO2% (BldA) [Mass fraction] 100 % Onel Dumont MD Work Phone: [facility] 05-06-2025 10:25-0400 Systolic blood pressure 155 mm[Hg] Onel Dumont MD Work Phone: [facility] 04-24-2025 13:32-0400 Body temperature 97.3 [degF] Dr. Efrain Peters DO Work Phone: [facility] 04-24-2025 13:32-0400 Diastolic blood pressure 75 mm[Hg] Dr. Efrain Peters DO Work Phone: [facility] 04-24-2025 13:32-0400 Heart rate 70 /min Dr. Efrain Peters DO Work Phone: [facility] 04-24-2025 13:32-0400 Respiratory rate 16 /min Dr. Efrain Peters DO Work Phone: [facility] 04-24-2025 13:32-0400 SaO2% (BldA) [Mass fraction] 98 % Dr. Efrain Peters DO Work Phone: [facility] 04-24-2025 13:32-0400 Systolic blood pressure 138 mm[Hg] Dr. Efrain Peters DO Work Phone: [facility] 04-24-2025 11:15-0400 Body height 172.[address] Efrain Peters DO Work Phone: [facility] 04-24-2025 11:15-0400 Body mass index (BMI) [Ratio] 24 kg/m2 Dr. Efrain Peters DO Work Phone: [facility] 04-24-2025 11:15-0400 Body weight 71.[address] Efrain Peters DO Work Phone: [facility] 04-23-2025 08:23-0400 Body mass index (BMI) [Ratio] 25.47 kg/m2 Treatment Wstr Work Phone: [facility] 04-23-2025 08:23-0400 Body temperature 97.81 [degF] Treatment Wstr Work Phone: [facility] 04-23-2025 08:23-0400 Body weight 71.89 kg Treatment Wstr Work Phone: [facility] 04-23-2025 08:23-0400 Diastolic blood pressure 79 mm[Hg] Treatment Wstr Work Phone: [facility] 04-23-2025 08:23-0400 Heart rate 84 /min Treatment Wstr Work Phone: [facility] 04-23-2025 08:23-0400 Respiratory rate 18 /min Treatment Wstr Work Phone: [facility] 04-23-2025 08:23-0400 SaO2% (BldA) [Mass fraction] 99 % Treatment Wstr Work Phone: [facility] 04-23-2025 08:23-0400 Systolic blood pressure 145 mm[Hg] Treatment Wstr Work Phone: [facility] 04-16-2025 09:23-0400 Body temperature 97.81 [degF] Treatment Wstr Work Phone: [facility] 04-16-2025 09:23-0400 Diastolic blood pressure 83 mm[Hg] Treatment Wstr Work Phone: [facility] 04-16-2025 09:23-0400 Heart rate 77 /min Treatment Wstr Work Phone: [facility] 04-16-2025 09:23-0400 SaO2% (BldA) [Mass fraction] 99 % Treatment Wstr Work Phone: [facility] 04-16-2025 09:23-0400 Systolic blood pressure 146 mm[Hg] Treatment Wstr Work Phone: [facility] 04-15-2025 15:27-0400 Body mass index (BMI) [Ratio] 25.23 kg/m2 Onel Dumont MD Work Phone: [facility] 04-15-2025 15:27-0400 Body temperature 98.01 [degF] Onel Dumont MD Work Phone: [facility] 04-15-2025 15:27-0400 Body weight 71.22 kg Onel Dumont MD Work Phone: [facility] 04-15-2025 15:27-0400 Diastolic blood pressure 72 mm[Hg] Onel Dumont MD Work Phone: [facility] 04-15-2025 15:27-0400 Heart rate 89 /min Onel Dumont MD Work Phone: [facility] 04-15-2025 15:27-0400 SaO2% (BldA) [Mass fraction] 100 % Onel Dumont MD Work Phone: [facility] 04-15-2025 15:27-0400 Systolic blood pressure 139 mm[Hg] Onel Dumont MD Work Phone: [facility] 04-02-2025 08:51-0400 Body mass index (BMI) [Ratio] 25.23 kg/m2 Treatment Wstr Work Phone: [facility] 04-02-2025 08:51-0400 Body temperature 97.11 [degF] Treatment Wstr Work Phone: [facility] 04-02-2025 08:51-0400 Body weight 71.22 kg Treatment Wstr Work Phone: [facility] 04-02-2025 08:51-0400 Diastolic blood pressure 69 mm[Hg] Treatment Wstr Work Phone: [facility] 04-02-2025 08:51-0400 Heart rate 79 /min Treatment Wstr Work Phone: [facility] 04-02-2025 08:51-0400 SaO2% (BldA) [Mass fraction] 97 % Treatment Wstr Work Phone: [facility] 04-02-2025 08:51-0400 Systolic blood pressure 115 mm[Hg] Treatment Wstr Work Phone: [facility] 03-26-2025 09:20-0400 Body mass index (BMI) [Ratio] 25.47 kg/m2 Treatment Wstr Work Phone: [facility] 03-26-2025 09:20-0400 Body temperature 97.9 [degF] Treatment Wstr Work Phone: [facility] 03-26-2025 09:20-0400 Body weight 71.89 kg Treatment Wstr Work Phone: [facility] 03-26-2025 09:20-0400 Diastolic blood pressure 66 mm[Hg] Treatment Wstr Work Phone: [facility] 03-26-2025 09:20-0400 Heart rate 86 /min Treatment Wstr Work Phone: [facility] 03-26-2025 09:20-0400 SaO2% (BldA) [Mass fraction] 98 % Treatment Wstr Work Phone: [facility] 03-26-2025 09:20-0400 Systolic blood pressure 125 mm[Hg] Treatment Wstr Work Phone: [facility] 03-21-2025 12:06-0400 Body mass index (BMI) [Ratio] 25.23 kg/m2 Onel Dumont MD Work Phone: [facility] 03-21-2025 12:06-0400 Body temperature 98.29 [degF] Onel Dumont MD Work Phone: [facility] 03-21-2025 12:06-0400 Body weight 71.22 kg Onel Dumont MD Work Phone: [facility] 03-21-2025 12:06-0400 Diastolic blood pressure 76 mm[Hg] Onel Dumont MD Work Phone: [facility] 03-21-2025 12:06-0400 Heart rate 89 /min Onel Dumont MD Work Phone: [facility] 03-21-2025 12:06-0400 SaO2% (BldA) [Mass fraction] 99 % Onel Dumont MD Work Phone: [facility] 03-21-2025 12:06-0400 Systolic blood pressure 143 mm[Hg] Onel Dumont MD Work Phone: [facility] 03-19-2025 08:40-0400 Body mass index (BMI) [Ratio] 25.47 kg/m2 Treatment Wstr Work Phone: [facility] 03-19-2025 08:40-0400 Body temperature 97.59 [degF] Treatment Wstr Work Phone: [facility] 03-19-2025 08:40-0400 Body weight 71.89 kg Treatment Wstr Work Phone: [facility] 03-19-2025 08:40-0400 Diastolic blood pressure 72 mm[Hg] Treatment Wstr Work Phone: [facility] 03-19-2025 08:40-0400 Heart rate 81 /min Treatment Wstr Work Phone: [facility] 03-19-2025 08:40-0400 Respiratory rate 16 /min Treatment Wstr Work Phone: [facility] 03-19-2025 08:40-0400 SaO2% (BldA) [Mass fraction] 99 % Treatment Wstr Work Phone: [facility] 03-19-2025 08:40-0400 Systolic blood pressure 127 mm[Hg] Treatment Wstr Work Phone: [facility] 02-26-2025 07:00-0400 Body height 168 cm Treatment Wstr Work Phone: [facility] 02-26-2025 07:00-0400 Body temperature 98.29 [degF] Treatment Wstr Work Phone: [facility] 02-26-2025 07:00-0400 Diastolic blood pressure 68 mm[Hg] Treatment Wstr Work Phone: [facility] 02-26-2025 07:00-0400 Heart rate 64 /min Treatment Wstr Work Phone: [facility] 02-26-2025 07:00-0400 Systolic blood pressure 135 mm[Hg] Treatment Wstr Work Phone: [facility] 02-25-2025 08:11-0400 Body mass index (BMI) [Ratio] 24.67 kg/m2 Casie Barragan Work Phone: [facility] 02-25-2025 08:11-0400 Body temperature 98.01 [degF] Casie Barragan Work Phone: [facility] 02-25-2025 08:11-0400 Body weight 69.63 kg Casie Barragan Work Phone: [facility] 02-25-2025 08:11-0400 Diastolic blood pressure 45 mm[Hg] Casie Barragan Work Phone: [facility] 02-25-2025 08:11-0400 Heart rate 89 /min Casie Barragan Work Phone: [facility] 02-25-2025 08:11-0400 SaO2% (BldA) [Mass fraction] 100 % Casie Barragan Work Phone: [facility] 02-25-2025 08:11-0400 Systolic blood pressure 129 mm[Hg] Casie Barragan Work Phone: [facility] 02-14-2025 08:04-0400 Body temperature 97.39 [degF] Treatment Wstr Work Phone: [facility] 02-14-2025 08:04-0400 Diastolic blood pressure 67 mm[Hg] Treatment Wstr Work Phone: [facility] 02-14-2025 08:04-0400 Heart rate 91 /min Treatment Wstr Work Phone: [facility] 02-14-2025 08:04-0400 Respiratory rate 18 /min Treatment Wstr Work Phone: [facility] 02-14-2025 08:04-0400 SaO2% (BldA) [Mass fraction] 97 % Treatment Wstr Work Phone: [facility] 02-14-2025 08:04-0400 Systolic blood pressure 124 mm[Hg] Treatment Wstr Work Phone: [facility] 02-12-2025 09:51-0400 Body mass index (BMI) [Ratio] 25.23 kg/m2 Treatment Wstr Work Phone: [facility] 02-12-2025 09:51-0400 Body temperature 98.49 [degF] Treatment Wstr Work Phone: [facility] 02-12-2025 09:51-0400 Body weight 71.22 kg Treatment Wstr Work Phone: [facility] 02-12-2025 09:51-0400 Diastolic blood pressure 71 mm[Hg] Treatment Wstr Work Phone: [facility] 02-12-2025 09:51-0400 Heart rate 89 /min Treatment Wstr Work Phone: [facility] 02-12-2025 09:51-0400 Respiratory rate 20 /min Treatment Wstr Work Phone: [facility] 02-12-2025 09:51-0400 SaO2% (BldA) [Mass fraction] 98 % Treatment Wstr Work Phone: [facility] 02-12-2025 09:51-0400 Systolic blood pressure 129 mm[Hg] Treatment Wstr Work Phone: [facility] 01-23-2025 11:36-0400 Diastolic blood pressure 81 mm[Hg] Treatment Wstr Work Phone: [facility] 01-23-2025 11:36-0400 Heart rate 67 /min Treatment Wstr Work Phone: [facility] 01-23-2025 11:36-0400 Systolic blood pressure 150 mm[Hg] Treatment Wstr Work Phone: [facility] 01-23-2025 08:06-0400 Body mass index (BMI) [Ratio] 25.07 kg/m2 Treatment Wstr Work Phone: [facility] 01-23-2025 08:06-0400 Body temperature 97.5 [degF] Treatment Wstr Work Phone: [facility] 01-23-2025 08:06-0400 Body weight 70.76 kg Treatment Wstr Work Phone: [facility] 01-23-2025 08:06-0400 Respiratory rate 16 /min Treatment Wstr Work Phone: [facility] 01-23-2025 08:06-0400 SaO2% (BldA) [Mass fraction] 98 % Treatment Wstr Work Phone: [facility] 01-15-2025 09:14-0400 Body mass index (BMI) [Ratio] 25.55 kg/m2 Treatment Wstr Work Phone: [facility] 01-15-2025 09:14-0400 Body temperature 97.11 [degF] Treatment Wstr Work Phone: [facility] 01-15-2025 09:14-0400 Body weight 72.12 kg Treatment Wstr Work Phone: [facility] 01-15-2025 09:14-0400 Diastolic blood pressure 78 mm[Hg] Treatment Wstr Work Phone: [facility] 01-15-2025 09:14-0400 Heart rate 84 /min Treatment Wstr Work Phone: [facility] 01-15-2025 09:14-0400 SaO2% (BldA) [Mass fraction] 97 % Treatment Wstr Work Phone: [facility] 01-15-2025 09:14-0400 Systolic blood pressure 132 mm[Hg] Treatment Wstr Work Phone: [facility] 12-31-2024 13:57-0400 Body height 168 cm Onel Dumont MD Work Phone: [facility] 12-31-2024 13:57-0400 Body mass index (BMI) [Ratio] 25.15 kg/m2 Onel Dumont MD Work Phone: [facility] 12-31-2024 13:57-0400 Body temperature 97.81 [degF] Onel Dumont MD Work Phone: [facility] 12-31-2024 13:57-0400 Body weight 70.99 kg Onel Dumont MD Work Phone: [facility] 12-31-2024 13:57-0400 Diastolic blood pressure 89 mm[Hg] Onel Dumont MD Work Phone: [facility] 12-31-2024 13:57-0400 Heart rate 98 /min Onel Dumont MD Work Phone: [facility] 12-31-2024 13:57-0400 SaO2% (BldA) [Mass fraction] 96 % Onel Dumont MD Work Phone: [facility] 12-31-2024 13:57-0400 Systolic blood pressure 153 mm[Hg] Onel Dumont MD Work Phone: [facility] 12-25-2024 11:36-0400 Body temperature 97.7 [degF] Dr. Efrain Peters DO Work Phone: [facility] 12-25-2024 11:36-0400 Diastolic blood pressure 63 mm[Hg] Dr. Efrain Peters DO Work Phone: [facility] 12-25-2024 11:36-0400 Heart rate 66 /min Dr. Efrain Peters DO Work Phone: [facility] 12-25-2024 11:36-0400 Respiratory rate 16 /min Dr. Efrain Peters DO Work Phone: [facility] 12-25-2024 11:36-0400 SaO2% (BldA) [Mass fraction] 93 % Dr. Efrain Peters DO Work Phone: [facility] 12-25-2024 11:36-0400 Systolic blood pressure 112 mm[Hg] Dr. Efrain Peters DO Work Phone: [facility] 12-25-2024 06:42-0400 Body height 172.[address] Efrain Peters DO Work Phone: 0(243)529-068184 [place] [address] 12-25-2024 06:42-0400 Body mass index (BMI) [Ratio] 24.5 kg/m2 Dr. Efrain Peters DO Work Phone: 7(673)670-047484 [place] [address] 12-25-2024 06:42-0400 Body weight [address] Efrain Peters DO Work Phone: 2(491)489-399684 [place] [address] 12-18-2024 09:33-0500 Body temperature 97.2 [degF] Dr. Efrain Peters DO Work Phone: 3(062)713-670884 [place] [address] 12-18-2024 09:33-0500 Diastolic blood pressure 76 mm[Hg] Dr. Efrain Peters DO Work Phone: 4(157)585-201084 [place] [address] 12-18-2024 09:33-0500 Heart rate 70 /min Dr. Efarin Peters DO Work Phone: 5(824)737-906684 [place] [address] 12-18-2024 09:33-0500 Respiratory rate 14 /min Dr. Efrain Peters DO Work Phone: 2(455)079-022784 [place] [address] 12-18-2024 09:33-0500 SaO2% (BldA) [Mass fraction] 100 % Dr. Efrain Peters DO Work Phone: 7(018)400-768884 [place] [address] 12-18-2024 09:33-0500 Systolic blood pressure 121 mm[Hg] Dr. Efrain Peters DO Work Phone: 0(667)410-332484 [place] [address] 12-18-2024 06:54-0500 Body mass index (BMI) [Ratio] 24.2 kg/m2 Dr. Efrain Peters DO Work Phone: 6(739)765-582284 [place] [address] 12-18-2024 06:54-0500 Body weight 72.[address] fErain Peters DO Work Phone: 6(656)349-884384 [place] [address] 12-12-2024 13:43-0500 Body mass index (BMI) [Ratio] 24.7 kg/m2 Dr. Efrain Peters DO Work Phone: 8(342)840-503584 [place] [address] 12-12-2024 13:43-0500 Body weight 73.[address] Efrain Peters DO Work Phone: [facility] 12-12-2024 13:43-0500 Diastolic blood pressure 76 mm[Hg] Dr. Efrain Peters DO Work Phone: [facility] 12-12-2024 13:43-0500 Heart rate 82 /min Dr. Efrain Peters DO Work Phone: [facility] 12-12-2024 13:43-0500 Respiratory rate 17 /min Dr. Efrain Peters DO Work Phone: [facility] 12-12-2024 13:43-0500 SaO2% (BldA) [Mass fraction] 96 % Dr. Efrain Peters DO Work Phone: [facility] 12-12-2024 13:43-0500 Systolic blood pressure 115 mm[Hg] Dr. Efrain Peters DO Work Phone: [facility] 12-10-2024 08:01-0500 Body height 171 cm Efrain Peters DO Work Phone: [facility] 12-10-2024 08:01-0500 Body mass index (BMI) [Ratio] 25.29 kg/m2 Efrain Peters DO Work Phone: [facility] 12-10-2024 08:01-0500 Body temperature 97 [degF] Efrain Peters DO Work Phone: [facility] 12-10-2024 08:01-0500 Body weight 73.94 kg Efrain Peters DO Work Phone: [facility] 12-10-2024 08:01-0500 Diastolic blood pressure 80 mm[Hg] Efrain Peters DO Work Phone: [facility] 12-10-2024 08:01-0500 Heart rate 80 /min Efrain Peters DO Work Phone: [facility] 12-10-2024 08:01-0500 Respiratory rate 16 /min Efrain Peters DO Work Phone: [facility] 12-10-2024 08:01-0500 Systolic blood pressure 134 mm[Hg] Efrain Peters DO Work Phone: [facility] 12-05-2024 15:19-0500 Diastolic blood pressure 80 mm[Hg] Brayan Herrera MD Work Phone: [facility] 12-05-2024 15:19-0500 Heart rate 70 /min Brayan Herrera MD Work Phone: [facility] 12-05-2024 15:19-0500 Respiratory rate 16 /min Brayan Herrera MD Work Phone: [facility] 12-05-2024 15:19-0500 SaO2% (BldA) [Mass fraction] 96 % Brayan Herrera MD Work Phone: [facility] 12-05-2024 15:19-0500 Systolic blood pressure 122 mm[Hg] Brayan Herrera MD Work Phone: [facility] 12-05-2024 14:59-0500 Body temperature 97.81 [degF] Brayan Herrera MD Work Phone: [facility] 12-05-2024 11:03-0500 Body mass index (BMI) [Ratio] 23.33 kg/m2 Brayan Herrera MD Work Phone: [facility] 12-05-2024 11:03-0500 Body weight 71.67 kg Brayan Herrera MD Work Phone: [facility] 12-05-2024 11:03-0500 Body height 175.3 cm Brayan Herrera MD Work Phone: [facility] 11-20-2024 09:00-0500 Body temperature 97.5 [degF] Dr. Efrain Peters DO Work Phone: [facility] 11-20-2024 09:00-0500 Diastolic blood pressure 81 mm[Hg] Dr. Efrain Peters DO Work Phone: [facility] 11-20-2024 09:00-0500 Heart rate 73 /min Dr. Efrain Peters DO Work Phone: 4(087)142-772098 [place] [address] 11-20-2024 09:00-0500 Respiratory rate 16 /min Dr. Efrain Peters DO Work Phone: 3(908)113-067884 [place] [address] 11-20-2024 09:00-0500 SaO2% (BldA) [Mass fraction] 99 % Dr. Efrain Peters DO Work Phone: 8(708)034-130784 [place] [address] 11-20-2024 09:00-0500 Systolic blood pressure 131 mm[Hg] Dr. Efrain Peters DO Work Phone: 1(881)527-791684 [place] [address] 11-20-2024 03:42-0500 Body mass index (BMI) [Ratio] 25.2 kg/m2 Dr. Efrain Peters DO Work Phone: 4(846)255-606884 [place] [address] 11-20-2024 03:42-0500 Body weight 75.[address] Efrain Peters DO Work Phone: 7(534)601-201584 [place] [address] 11-19-2024 16:18-0500 Inhaled oxygen flow rate 2 L/min Dr. Efrain Peters DO Work Phone: 3(173)006-769684 [place] [address] 10-25-2024 13:10-0500 Body temperature 97 [degF] Dr. Efrain Peters DO Work Phone: 0(668)275-340884 [place] [address] 10-25-2024 13:10-0500 Diastolic blood pressure 84 mm[Hg] Dr. Efrain Peters DO Work Phone: 5(640)509-841784 [place] [address] 10-25-2024 13:10-0500 Heart rate 65 /min Dr. Efrain Peters DO Work Phone: 7(297)688-354884 [place] [address] 10-25-2024 13:10-0500 Respiratory rate 16 /min Dr. Efrain Peters DO Work Phone: 4(198)028-102384 [place] [address] 10-25-2024 13:10-0500 SaO2% (BldA) [Mass fraction] 95 % Dr. Efrain Peters DO Work Phone: 5(604)822-643784 [place] [address] 10-25-2024 13:10-0500 Systolic blood pressure 113 mm[Hg] Dr. Efrain Peters DO Work Phone: 6(160)507-491784 [place] [address] 10-25-2024 09:30-0500 Body mass index (BMI) [Ratio] 23.4 kg/m2 Dr. Efrain Peters DO Work Phone: 9(976)438-051484 [place] [address] 10-25-2024 09:30-0500 Body weight 72.[address] Efrain Peters DO Work Phone: 6(122)181-471784 [place] [address] 10-25-2024 08:38-0500 Body mass index (BMI) [Ratio] 23.9 kg/m2 Dr. Efrain Peters DO Work Phone: 8(880)220-756484 [place] [address] 10-25-2024 08:38-0500 Body temperature 97.1 [degF] Dr. Efrain Peters DO Work Phone: 5(700)401-539584 [place] [address] 10-25-2024 08:38-0500 Body weight 73.[address] Efrain Peters DO Work Phone: 6(386)760-461584 [place] [address] 10-25-2024 08:38-0500 Diastolic blood pressure 67 mm[Hg] Dr. Efrain Peters DO Work Phone: 0(294)760-835084 [place] [address] 10-25-2024 08:38-0500 Heart rate 86 /min Dr. Efrain Peters DO Work Phone: 3(058)244-204184 [place] [address] 10-25-2024 08:38-0500 Respiratory rate 18 /min Dr. Efrain Peters DO Work Phone: 9(695)284-751284 [place] [address] 10-25-2024 08:38-0500 SaO2% (BldA) [Mass fraction] 95 % Dr. Efrain Peters DO Work Phone: 4(090)406-422084 [place] [address] 10-25-2024 08:38-0500 Systolic blood pressure 133 mm[Hg] Dr. Efrain Peters DO Work Phone: 6(147)047-331684 [place] [address] 10-24-2024 14:01-0500 Body mass index (BMI) [Ratio] 23.8 kg/m2 Dr. Efrain Peters DO Work Phone: 6(455)200-978984 [place] [address] 10-24-2024 14:01-0500 Body temperature 97.3 [degF] Dr. Efrain Peters DO Work Phone: [facility] 10-24-2024 14:01-0500 Body weight 73.[address] Efrain Peters DO Work Phone: [facility] 10-24-2024 14:01-0500 Diastolic blood pressure 77 mm[Hg] Dr. Efrain Peters DO Work Phone: [facility] 10-24-2024 14:01-0500 Heart rate 81 /min Dr. Efrain Peters DO Work Phone: [facility] 10-24-2024 14:01-0500 Respiratory rate 14 /min Dr. Efrain Peters DO Work Phone: 2(453)473-035298 [place] [address] 10-24-2024 14:01-0500 SaO2% (BldA) [Mass fraction] 98 % Dr. Efrain Peters DO Work Phone: [facility] 10-24-2024 14:01-0500 Systolic blood pressure 131 mm[Hg] Dr. Efrain Peters DO Work Phone: [facility] 10-05-2024 11:11-0500 Body mass index (BMI) [Ratio] 24.42 kg/m2 Goldie Fernández APRN.[employer] Work Phone: [facility] 10-05-2024 11:11-0500 Body temperature 97 [degF] Goldie Fernández APRN.[employer] Work Phone: [facility] 10-05-2024 11:11-0500 Body weight 75 kg Goldei Fernández APRN.[employer] Work Phone: [facility] 10-05-2024 11:11-0500 Diastolic blood pressure 83 mm[Hg] Goldie Fernández APRN.[employer] Work Phone: [facility] 10-05-2024 11:11-0500 Heart rate 79 /min Goldie Fernández APRN.[employer] Work Phone: [facility] 10-05-2024 11:11-0500 Respiratory rate 18 /min Goldie Fernández APRN.[employer] Work Phone: [facility] 10-05-2024 11:11-0500 SaO2% (BldA) [Mass fraction] 99 % Goldie Fernández APRN.[employer] Work Phone: [facility] 10-05-2024 11:11-0500 Systolic blood pressure 149 mm[Hg] Goldie Fernández APRN.[employer] Work Phone: [facility] 12-07-2023 18:33-0500 Body height 175.3 cm Efrain Peters DO Work Phone: [facility] 12-07-2023 18:33-0500 Body temperature 98.29 [degF] Efrain Peters DO Work Phone: [facility] 12-07-2023 18:33-0500 Body weight 81.19 kg Efrain Peters DO Work Phone: [facility] 12-07-2023 18:33-0500 Diastolic blood pressure 88 mm[Hg] Efrain Peters DO Work Phone: [facility] 12-07-2023 18:33-0500 Heart rate 72 /min Efrain Peters DO Work Phone: [facility] 12-07-2023 18:33-0500 Respiratory rate 16 /min Efrain Peters DO Work Phone: [facility] 12-07-2023 18:33-0500 Systolic blood pressure 138 mm[Hg] Efrain Peters DO Work Phone: [facility] 11-29-2022 07:46-0500 Body height 171 cm Efrain Peters DO Work Phone: [facility] 11-29-2022 07:46-0500 Body temperature 97 [degF] Efrain Peters DO Work Phone: [facility] 11-29-2022 07:46-0500 Body weight 81.65 kg Efrain Peters DO Work Phone: [facility] 11-29-2022 07:46-0500 Diastolic blood pressure 80 mm[Hg] Efrain Peters DO Work Phone: [facility] 11-29-2022 07:46-0500 Heart rate 76 /min Efrain Peters DO Work Phone: [facility] 11-29-2022 07:46-0500 Respiratory rate 16 /min Efrain Peters DO Work Phone: [facility] 11-29-2022 07:46-0500 Systolic blood pressure 138 mm[Hg] Efrain Peters DO Work Phone: [facility] Encounters Encounter Date Encounter Type Care Provider Facility Start: 06-25-2025 End: 06-25-2025 Telephone encounter Onel Dumont MD Work Phone: Hematology/Oncology Start: 06-24-2025 ambulatory Efrain Peters Facilit y:[facility] Start: 06-24-2025 End: 06-25-2025 Evaluation and management of inpatient Dr. Bandar Salmeron DO -Medical Surgical 3 Work Phone: Start: 06-24-2025 End: 06-25-[address] Efrain Peters DO Work Phone: -Medical Surgical 3 Start: 06-24-2025 End: 06-24-2025 ambulatory EFRAIN PETERS Facility:[facility] Start: 06-11-2025 End: 06-11-2025 ambulatory Treatment Rm 7 [facility] Work Phone: Hematology/Oncology Comment on above: Cholangiocarcinoma ( HCC) (Primary Dx) Start: 06-06-2025 End: 06-06-2025 Telephone encounter Dione Witt RN Work Phone: Hematology/Oncology Comment on above: [employer] Rol[employer] Winder - E D Follow Up Start: 06-04-2025 End: 06-04-2025 Emergency department patient visit EFRAIN PETERS Facility:[facility] Start: 06-04-2025 End: 06-04-2025 Subsequent hospital visit by physician [facility] (I-Stat/1.5t) Work Phone: Radiology Comment on above: Cholangiocarcinoma ( HCC) [C22.1] Start: 06-04-2025 End: 06-04-2025 Telephone encounter Onel Dumont MD Work Phone: Hematology/Oncology Comment on above: Chemotherapy Treatme nt Orders; Patient Upda te Erroneous encounter- disregard Start: 06-04-2025 End: 06-04-2025 ambulatory Treatment Rm 5 [facility] Work Phone: Hematology/Oncology Comment on above: Cholangiocarcinoma ( HCC) (Primary Dx) Start: 06-03-2025 End: 06-03-2025 ambulatory EFRAIN PETERS Facility:[facility] Start: 05-28-2025 End: 05-28-2025 ambulatory Treatment Rm 2 [facility] Work Phone: Hematology/Oncology Comment on above: Cholangiocarcinoma ( HCC) (Primary Dx) Start: 05-27-2025 End: 05-27-2025 Patient encounter procedure Hai CRYSTAL Hematology/Oncology Start: 05-27-2025 End: 05-27-2025 ambulatory Hai Vilma STRUCTURAL ENGINEER Hematology/Oncology Comment on above: Cholangiocarcinoma ( HCC) (Primary Dx) Start: 05-17-2025 End: 05-20-2025 Telephone encounter Onel Dumont MD Work Phone: Hematology/Oncology Start: 05-16-2025 Encounter for other preprocedural examination DEBRA WOODS [facility] Start: 05-16-2025 ambulatory DEBRA WOODS Facility:[facility] Start: 05-16-2025 End: 05-16-2025 Preprocedural examination done Debra Woods MD Work Phone: [facility] Work Phone: Start: 05-16-2025 End: 05-16-2025 Subsequent hospital visit by physician Debra Woods MD Work Phone: [facility] Comment on above: Cholangiocarcinoma ( HCC) [C22.1] Start: 05-07-2025 End: 05-07-2025 ambulatory Treatment Rm 1 [facility] Work Phone: Hematology/Oncology Comment on above: Cholangiocarcinoma ( HCC) (Primary Dx) Start: 05-06-2025 End: 05-06-2025 Patient encounter procedure Onel Dumont MD Work Phone: Hematology/Oncology Start: 05-06-2025 End: 05-06-2025 ambulatory Onel Dumont MD Work Phone: Hematology/Oncology Comment on above: Cholangiocarcinoma ( HCC) (Primary Dx); Bilateral leg edema Start: 04-24-2025 End: 04-24-2025 Telephone encounter Dione Witt RN Work Phone: Hematology/Oncology Comment on above: Care Coordination (U pcoming treatment) Start: 04-24-2025 End: 04-24-[address] Onel Dumont MD -Medical Out Work Phone: Start: 04-24-2025 End: 04-24-[address] Efrain Peters DO Work Phone: -Medical Out Start: 04-23-2025 End: 04-23-2025 Telephone encounter Onel Dumont MD Work Phone: Hematology/Oncology Comment on above: Transfusion Start: 04-23-2025 End: 04-23-2025 ambulatory Treatment Rm 4 [facility] Work Phone: Hematology/Oncology Comment on above: Cholangiocarcinoma ( HCC) (Primary Dx) Start: 04-17-2025 End: 04-17-2025 Orders Only Debra Woods MD Work Phone: [facility] [place] Comment on above: Cholangiocarcinoma ( HCC) (Primary Dx) Appointment Start: 04-16-2025 End: 04-16-2025 ambulatory Treatment Rm 7 [facility] Work Phone: Hematology/Oncology Comment on above: Cholangiocarcinoma ( HCC) (Primary Dx) Start: 04-15-2025 End: 04-15-2025 Patient encounter procedure Onel Dumont MD Work Phone: Hematology/Oncology Start: 04-15-2025 End: 04-15-2025 ambulatory Onel Dumont MD Work Phone: Hematology/Oncology Comment on above: Cholangiocarcinoma ( HCC) (Primary Dx) Start: 04-15-2025 End: 04-17-2025 Telephone encounter Onel Dumont MD Work Phone: Hematology/Oncology Comment on above: avs 04/15 Start: 04-02-2025 End: 04-02-2025 ambulatory EFRAIN L PETERS Facility:[facility] Start: 04-02-2025 End: 04-02-2025 Nutrition therapy Urbano Berry RD Work Phone: Nutrition Therapy Comment on above: Nutrition Counseling Start: 04-02-2025 End: 04-02-2025 ambulatory Treatment Rm 7 [facility] Work Phone: Hematology/Oncology Comment on above: Cholangiocarcinoma ( HCC) (Primary Dx) Start: 04-01-2025 End: 04-01-2025 ambulatory EFRAIN L PETERS Facility:[facility] Start: 04-01-2025 ambulatory EFRAIN L PETERS Facil ity:[facility] Start: 04-01-2025 End: 04-01-2025 Subsequent hospital visit by physician [facility] (I-Stat/1.5t) Work Phone: Radiology Comment on above: Cholangiocarcinoma ( HCC) [C22.1] Start: 03-26-2025 End: 03-26-2025 ambulatory Treatment Rm 7 [facility] Work Phone: Hematology/Oncology Comment on above: Cholangiocarcinoma ( HCC) (Primary Dx) Start: 03-21-2025 End: 03-21-2025 Patient encounter procedure Onel Dumont MD Work Phone: Hematology/Oncology Start: 03-21-2025 End: 03-21-2025 ambulatory Onel Dumont MD Work Phone: Hematology/Oncology Comment on above: Cholangiocarcinoma ( HCC) (Primary Dx) Start: 03-19-2025 End: 03-19-2025 ambulatory Treatment Rm 7 [facility] Work Phone: Hematology/Oncology Comment on above: Cholangiocarcinoma ( HCC) (Primary Dx); Actinic keratosis Start: 03-19-2025 End: 03-19-2025 ambulatory EFRAIN L PETERS Facility:[facility] Start: 03-14-2025 End: 03-22-2025 Telephone encounter Onel Dumont MD Work Phone: Hematology/Oncology Start: 03-14-2025 End: 03-14-2025 ambulatory EFRAIN L PETERS Facility:[facility] Start: 03-12-2025 ambulatory EFRAIN L PETERS Facil ity:[facility] Start: 03-12-2025 End: 03-12-2025 Subsequent hospital visit by physician Faye [facility] (I-Stat) Work Phone: Cat Scan Comment on above: Cholangiocarcinoma ( HCC) [C22.1] Start: 03-05-2025 End: 03-05-2025 ambulatory EFRAIN L PETERS Facility:[facility] Start: 02-26-2025 End: 02-26-[address] Urbano Berry RD Work Phone: Nutrition Therapy Comment on above: Nutrition Assessment Start: 02-26-2025 End: 02-26-2025 ambulatory Treatment Rm 1 [facility] Work Phone: Hematology/Oncology Comment on above: Cholangiocarcinoma ( HCC) (Primary Dx) Start: 02-25-2025 End: 02-25-2025 Patient encounter procedure Casie Barragan Work Phone: Hematology/Oncology Start: 02-25-2025 End: 02-25-2025 ambulatory Casie Barragan Work Phone: Hematology/Oncology Comment on above: Cholangiocarcinoma ( HCC) (Primary Dx) Start: 02-14-2025 End: 02-14-2025 ambulatory Treatment Rm 2 [facility] Work Phone: Hematology/Oncology Comment on above: Cholangiocarcinoma ( HCC) (Primary Dx) Start: 02-12-2025 End: 02-12-2025 ambulatory Treatment Rm 9 [facility] Work Phone: Hematology/Oncology Comment on above: Cholangiocarcinoma ( HCC) (Primary Dx) Start: 02-06-2025 End: 02-06-2025 ambulatory EFRAIN PETERS Facility:[facility] Start: 02-05-2025 End: 02-05-2025 ambulatory EFRAIN Leah PETERS Facility:[facility] Start: 01-23-2025 End: 01-23-2025 ambulatory Treatment Rm 2 [facility] Work Phone: Hematology/Oncology Comment on above: Cholangiocarcinoma ( HCC) (Primary Dx) Start: 01-16-2025 End: 01-16-2025 Telephone encounter Dione Witt RN Work Phone: Hematology/Oncology Comment on above: Care Coordination (C YCLE 1/DAY 1 POST TREATMENT CALL ) Start: 01-15-2025 End: 01-15-2025 ambulatory Treatment Rm 9 [facility] Work Phone: Hematology/Oncology Comment on above: Cholangiocarcinoma ( HCC) (Primary Dx) Start: 01-09-2025 End: 01-14-2025 Telephone encounter Dione Witt RN Work Phone: Hematology/Oncology Comment on above: Patient Update (Janice ract Surgery) Start: 01-02-2025 End: 01-02-2025 Patient encounter procedure Urbano Georges PA-C -[facility] Work Phone: Start: 01-02-2025 End: 01-02-2025 ambulatory Efrain Boudreauxon [place] Start: 01-01-2025 Encounter for other preprocedural examination Mike Malagon [facility] Start: 12-31-2024 End: 12-31-2024 ambulatory Onel Dumont MD Work Phone: Hematology/Oncology Comment on above: Cholangiocarcinoma ( HCC) (Primary Dx); Malaise and fatigue Start: 12-31-2024 End: 12-31-2024 Patient encounter procedure Onel Dumont MD Work Phone: Hematology/Oncology Start: 12-31-2024 End: 12-31-2024 Telephone encounter Dione Witt RN Work Phone: Hematology/Oncology Comment on above: Care Coordination (I ntroduction/) avs 12/31 Start: 12-25-2024 End: 12-26-2024 Telephone encounter Efrain Peters DO Work Phone: [facility] Comment on above: Orders; need for onc ology referral Start: 12-25-2024 Non-patient / Non-visit Dr. Dayanara Malagon MD -[facility] Start: 12-25-2024 End: 12-25-2024 Admission to same day surgery center Dr. Mike Malagon MD -Surgical Day Care Start: 12-25-2024 End: 12-25-[address] Efrain Peters DO Work Phone: [facility] Work Phone: Start: 12-18-2024 Non-patient / Non-visit Dr. Dayanara Malagon MD -[facility] Start: 12-18-2024 End: 12-18-2024 Admission to same day surgery center Dr. Mike Malagon MD -Endoscopy Work Phone: Start: 12-18-2024 End: 12-18-2024 ambulatory Mike Malagon Facility:[facility] Start: 12-12-2024 End: 12-12-[address] Mike Malagon MD -[facility] Work Phone: Start: 12-12-2024 End: 12-12-2024 ambulatory Efrain Peters [place] Start: 12-10-2024 End: 12-11-2024 Telephone encounter Efrain Peters DO Work Phone: [facility] Comment on above: rx sent locally was to go to mail away pharmacy Start: 12-10-2024 End: 12-10-2024 ambulatory EFRAIN PETERS Facility:[facility] Start: 12-10-2024 End: 12-10-2024 Patient encounter procedure Efrain Peters DO Work Phone: [facility] Comment on above: Altered bowel functi on (Primary Dx); Pancreatic insufficiency; Generalized abdominal pain; Mixed hyperlipidemia; Essential hypertension; IFG (impaired fasting glucose); Acquired hypothyroidism; Gastroesophageal reflux disease without esophagitis; Vitamin D deficiency; Vitamin B12 deficiency; Screening for prostate cancer Start: 12-05-2024 End: 12-05-2024 ambulatory BRAYAN HERRERA [facility] Start: 12-05-2024 End: 12-05-2024 Subsequent hospital visit by physician Brayan Herrera MD Work Phone: [facility] Endoscopy Comment on above: Obstruction of bile duct Start: 11-20-2024 Non-patient / Non-visit Dr. Dayanara Malagon MD -[facility] Start: 11-19-2024 Non-patient / Non-visit Quanjeramie Sorenson nd [facility] Start: 11-19-2024 Non-patient / Non-visit Dr. Latanya MUNROE -[facility] Work Phone: Start: 11-18-2024 Non-patient / Non-visit Quanaster Sorenson nd [facility] Start: 11-18-2024 ambulatory Efrain Peters Facilit y:[facility] Start: 11-18-2024 End: 11-20-2024 Evaluation and management of inpatient Dr. Camilo Upton MD -Intensive Care Unit Work Phone: Start: 11-18-2024 Non-patient / Non-visit Dr. Dayanara Malagon MD -[facility] Start: 10-30-2024 End: 10-30-2024 Patient encounter procedure Jannie BERNAL -Laboratory Work Phone: Start: 10-30-2024 End: 10-30-2024 ambulatory Efrain Peters Facility:[facility] Start: 10-25-2024 ambulatory Efrain Peters Facilit y:[facility] Start: 10-25-2024 Non-patient / Non-visit Quan Sorenson nd [facility] Start: 10-25-2024 End: 10-25-2024 Non-patient / Non-visit Dr. Juan Perez MD -[facility] Work Phone: Start: 10-25-2024 End: 10-25-2024 Admission to same day surgery center Quan Myers DO -Endoscopy Work Phone: Start: 10-25-2024 End: 10-25-2024 ambulatory Efrain Peters Facility:[facility] Start: 10-25-2024 End: 10-25-2024 Emergency department patient visit Dr. Barney Serna MD -Emergency Department Work Phone: Start: 10-24-2024 End: 10-24-2024 Emergency department patient visit Dr. Molly Lizarraga DO -Emergency Department Work Phone: Start: 10-24-2024 End: 10-24-2024 Patient encounter procedure Jannie BERNAL -[facility] Work Phone: Start: 10-24-2024 End: 10-24-2024 Patient encounter procedure Jannie BERNAL -[facility] Work Phone: Start: 10-24-2024 End: 10-24-2024 ambulatory Efrain Peters [place] Start: 10-24-2024 End: 10-24-2024 ambulatory Efrain Peters Facility:[facility] Start: 10-12-2024 End: 10-13-2024 Telephone encounter Efrain Hernandezrison DO Work Phone: [facility] Comment on above: Results Start: 10-09-2024 End: 10-09-2024 ambulatory EFRAIN L PETERS Facility:[facility] Start: 10-08-2024 End: 10-08-2024 Telephone encounter Efrain L Peters DO Work Phone: [facility] Comment on above: Patient Question Start: 10-07-2024 End: 10-07-2024 Telephone encounter Sandra Hunt APRN.[employer] OFFICER Work Phone: [facility] Comment on above: Results Start: 10-05-2024 End: 10-05-2024 Telephone encounter Efrain L Peters DO Work Phone: [facility] Comment on above: Patient Update Start: 10-05-2024 End: 10-05-2024 ambulatory EFRAIN L PETERS Facility:[facility] Start: 10-05-2024 End: 10-05-2024 Patient encounter procedure Goldie Margarita LANDCARE OFFICER Work Phone: [facility] Comment on above: Urinary frequency (P rimary Dx) Start: 12-14-2023 Refill Efrain lawler DO Work Phone: [facility] Comment on above: Refill Request Start: 12-07-2023 End: 12-07-2023 Patient encounter procedure Efrain Peters DO Work Phone: [facility] Comment on above: Mixed hyperlipidemia (Primary Dx); Essential hypertension; IFG (impaired fasting glucose); Acquired hypothyroidism; Actinic keratosis; Gastroesophageal reflux disease without esophagitis Start: 11-07-2023 End: 07-18-2024 Telephone encounter Efrain Lynn Peters DO Work Phone: [facility] Start: 08-12-2023 Telephone encounter Efrain soria DO Work Phone: [facility] Comment on above: Patient Question; Pa tient Update Start: 04-21-2023 ambulatory Lis (Pss) [facility] [place] Comment on above: Population Health Na vigation Outreach ([employer] care gaps) Start: 01-31-2023 End: 01-31-2023 Patient encounter procedure Emily York PA-C Work Phone: Orthopaedics Comment on above: Shoulder injury, rig ht; Tendonitis right rotator cuff Start: 12-22-2022 Telephone encounter Efrain soria DO Work Phone: 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 Procedures Date Procedure Procedure Detail Performing Clinician Start: 06-25-[address] Jhonathan Peters DO Work Phone: Start: 06-24-2025 Measurement of occult blood in stool specimen using immunoassay Dr. Efrain Peters DO Work Phone: Start: 06-24-2025 Urnls dip stick/tablet reagent auto microscopy Dr. Efrain Peters DO Work Phone: Start: 06-24-[address] Jhonathan Peters DO Work Phone: Start: 06-24-2025 Serum inorganic phosphate measurement Dr. Efrain Peters DO Work Phone: Start: 06-24-2025 Total iron binding capacity measurement Dr. Efrain Peters DO Work Phone: Start: 06-24-[address] Efrain Peters DO Work Phone: Start: 06-24-2025 Plain chest X-ray Dr. Efarin Peters DO Work Phone: Start: 05-16-2025 Ercp dx collection specimen brushing/washing Debra Woods MD Work Phone: Start: 04-23-2025 Comprehensive metabolic panel Onel espinosa MD Work Phone: Start: 04-02-2025 Comprehensive metabolic panel Onel espinosa MD Work Phone: Start: 02-14-2025 Basic metabolic panel calcium total Onel Dumont MD Work Phone: Start: 12-25-2024 Total cholecystectomy and exploration of common bile duct Dr. Efrain Peters DO Work Phone: Start: 11-19-2024 End: 11-19-[address] Efrain Peters DO Work Phone: Start: 11-19-[address] Efrain Peters DO Work Phone: Start: 11-17-2024 CT of thorax, abdomen and pelvis with contrast Dr. Efrain Peters DO Work Phone: Start: 11-17-[address] Efrain Peters DO Work Phone: Start: 11-17-2024 SARS-CoV-2, Influenza & RSV (PCR) Dr. Jovana Peters DO Work Phone: Start: 11-17-[address] Efrain Peters DO Work Phone: Start: 10-25-[address] Efrain Peters DO Work Phone: Start: 10-25-[address] Efrain Peters DO Work Phone: Start: 10-24-2024 Computed tomography of abdomen and pelvis with intravenous contrast Dr. Efrain Peters DO Work Phone: Start: 10-24-2024 US scan of gallbladder Dr. Efrain Peters DO Work Phone: Start: 10-05-2024 Urnls dip stick/tablet rgnt auto w/o microscopy Trina Almodovar PA-C Work Phone: Start: 12-22-2022 Mri any jt upper extremity w/o contrast matrl Efrain Peters DO Work Phone: Start: 12-06-2022 Lipid 1996 panel - Serum or Plasma Efrain Peters DO Work Phone: Start: 11-29-2022 Radex shoulder complete minimum 2 views Efrain Peters DO Work Phone: Start: 11-18-2021 History of repair of inguinal hernia History of inguinal herniorrhaphy Efrain Peters DO Work Phone: Start: 11-25-2017 Colonoscopy Efrain Peters DO Work Phone: Plan of Treatment Date Care Activity Detail Author Start: 05-18-2031 DTaP/Tdap/Td Vaccines (4 - Td or Tdap) DTaP/Tdap/Td Vaccines (4 - Td or Tdap) [facility] Start: 05-18-2031 Urine microalbumin profile [facility] Start: 06-24-2028 Diabetes Screening Diabetes Screening [facility] Start: 05-27-2028 Diabetes Screening Diabetes Screening [facility] Start: 05-06-2028 Diabetes Screening Diabetes Screening [facility] Start: 04-23-2028 Diabetes Screening Diabetes Screening [facility] Start: 04-15-2028 Diabetes Screening Diabetes Screening [facility] Start: 04-02-2028 Diabetes Screening Diabetes Screening [facility] Start: 03-26-2028 Diabetes Screening Diabetes Screening [facility] Start: 03-21-2028 Diabetes Screening Diabetes Screening [facility] Start: 03-19-2028 Diabetes Screening Diabetes Screening [facility] Start: 03-05-2028 Diabetes Screening Diabetes Screening [facility] Start: 02-26-2028 Diabetes Screening Diabetes Screening [facility] Start: 02-15-2028 Diabetes Screening Diabetes Screening [facility] Start: 02-06-2028 Diabetes Screening Diabetes Screening [facility] Start: 01-16-2028 Diabetes Screening Diabetes Screening [facility] Start: 12-10-2027 Diabetes Screening Diabetes Screening [facility] Start: 12-06-2027 Lipid 1996 panel - Serum or Plasma Lipid Screening [facility] Start: 12-06-2027 LIPID SCREEN LIPID SCREEN [facility] Start: 11-25-2027 Colonoscopy COLONOSCOPY [facility] Start: 11-25-2027 COLORECTAL CANCER SCREENING COLORECTAL CANCER SCREENING [facility] Start: 11-14-2026 Diabetes Screening Diabetes Screening [facility] Start: 11-13-2026 LIPID SCREEN LIPID SCREEN [facility] Start: 02-25-2026 BP Controlled (<130/80) BP Controlled (<130/80) [facility] Start: 12-10-2025 Annual PCP Team Chronic Disease Visit Annual PCP Team Chronic Disease Visit [facility] Start: 12-06-2025 DIABETES SCREEN DIABETES SCREEN [facility] Start: 12-06-2025 Diabetes Screening Diabetes Screening [facility] Start: 09-03-2025 End: 09-03-2025 ambulatory [facility] Comment on above: (S)CBC* D8 GEMZAR/CISPLATIN/ LAB EARLY* Start: 08-27-2025 End: 08-27-2025 ambulatory 08/27/2025 8:00 AM EST [facility] Hematology/Oncology [address] [place] [address] Q3WK IMFINZI/CISPLATIN/GEMZAR/L AB &OV 08/26* Hematology/Oncolog y Comment on above: Q3WK IMFINZI/CISPLATIN/GEMZAR/LAB &OV * Start: 08-26-2025 End: 08-26-2025 [facility] Comment on above: (SO)CBC/CMP(S)/TSH/ Q6WK T4/CORTISOL* OV/LAB EARLY/CHEMO 1 10/27* [facility] Start: 08-13-2025 End: 08-13-2025 ambulatory [facility] Comment on above: (S)CBC* D8 GEMZAR/CISPLATIN/ LAB EARLY* Start: 08-06-2025 End: 08-06-2025 ambulatory [facility] Comment on above: (SO)CBC* D8 GEMZAR/CISPLATIN/ LAB EARLY* Q3WK IMFINZI/CISPLAT IN/GEMZAR/LAB &OV 08/05* Start: 08-05-2025 End: 08-05-2025 ambulatory [facility] Comment on above: (SO)CBC/CMP(S)/TSH* Q6WK T4/CORTISOL OV/LAB EARLY/CHEMO 1 * [facility] Start: 07-30-2025 End: 07-30-2025 ambulatory 07/30/2025 8:00 AM EDT [facility] Hematology/Oncology [address] [place] [address] Q3WK IMFINZI/CISPLATIN/GEMZAR/L AB &OV 07/29* Hematology/Oncolog y Comment on above: Q3WK IMFINZI/CISPLATIN/GEMZAR/LAB &OV * Start: 07-29-2025 End: 07-29-2025 ambulatory [facility] Comment on above: (SO)CBC/CMP(S)/TSH/T4/CORTISOL* Q6WK LAB W/OV OV/LAB EARLY/CHEMO 1 * CRISTO Start: 07-22-2025 End: 07-22-2025 ambulatory [facility] Comment on above: (S)CBC* D8 GEMZAR/CISPLATIN/ LAB EARLY* Start: 07-17-2025 End: 07-17-2025 ambulatory [facility] Comment on above: (S)CBC* D8 GEMZAR/CISPLATIN/ LAB EARLY* Start: 07-15-2025 End: 07-15-2025 ambulatory 07/15/2025 8:00 AM EDT Infusion Center Hematology/Oncology [address] [place] [address] Q3WK IMFINZI/CISPLATIN/GEMZAR/L AB &OV 07/12* Hematology/Oncolog y Comment on above: Q3WK IMFINZI/CISPLATIN/GEMZAR/LAB &OV * Start: 07-12-2025 End: 07-12-2025 ambulatory [facility] Comment on above: (SO)CBC/CMP(S)/TSH/T4/CORTISOL* Q6WK LAB W/OV OV/LAB EARLY/CHEMO * CRISTO (SO)CBC/CMP(S)/TSH/ Q6WK T4/CORTISOL* Start: 07-10-2025 End: 07-10-2025 ambulatory 07/10/2025 8:00 AM EDT Infusion Center Hematology/Oncology [address] [place] [address] Q3WK IMFINZI/CISPLATIN/GEMZAR/L AB &OV 07/09* Hematology/Oncolog y Comment on above: Q3WK IMFINZI/CISPLATIN/GEMZAR/LAB &OV * Start: 07-09-2025 End: 07-09-2025 ambulatory [facility] Comment on above: (SO)CBC/CMP(S)/TSH/T4/CORTISOL* Q6WK LAB W/OV OV/LAB EARLY/CHEMO * CRISTO Start: 07-02-2025 End: 07-02-2025 ambulatory [facility] Comment on above: (S)CBC* D8 GEMZAR/CISPLATIN/ LAB EARLY* Start: 06-27-2025 End: 06-27-2025 ambulatory [facility] Comment on above: (S)CBC* D8 GEMZAR/CISPLATIN/ LAB EARLY* Start: 06-25-2025 End: 06-25-2025 ambulatory 06/25/2025 9:30 AM EDT Infusion Center Hematology/Oncology [address] [place] [address] Q3WK IMFINZI/CISPLATIN/GEMZAR/L AB &OV 06/24* Hematology/Oncolog y Comment on above: Q3WK IMFINZI/CISPLATIN/GEMZAR/LAB &OV 06/24* Start: 06-25-2025 Patient discharge [facility] Start: 06-24-2025 Following clinical pathway protocol [facility] Start: 06-24-2025 Patient referral to dietitian [facility] Start: 06-24-2025 Ambulation without limitation [facility] Start: 06-24-2025 Assessment of risk of venous thromboembolism [facility] Start: 06-24-2025 Incentive spirometry [facility] Start: 06-24-2025 Insertion of catheter into peripheral vein [facility] Start: 06-24-2025 Measuring intake and output [facility] Start: 06-24-2025 Oxygen therapy [facility] Start: 06-24-2025 Providing care according to standard [facility] Start: 06-24-2025 Referral to occupational therapist [facility] Start: 06-24-2025 Referral to service [facility] Start: 06-24-2025 [facility] Start: 06-24-2025 Verification routine [facility] Start: 06-24-2025 Folic acid measurement, RBC [facility] Start: 06-24-2025 Admission procedure [facility] Start: 06-24-2025 Hospital admission, emergency, from emergency room, medical nature [facility] Start: 06-24-2025 Vitamin B12 measurement [facility] Start: 06-24-2025 [facility] Start: 06-24-2025 End: 06-24-2025 ambulatory [facility] Comment on above: (SO)CBC/CMP(S)/TSH/T4/CORTISOL* Q6WK LAB W/OV OV/LAB EARLY/CHEMO * C[place]O Start: 06-24-2025 Patient referral to dietitian [facility] Start: 06-20-2025 End: 06-20-2025 ambulatory 06/20/2025 8:00 AM EDT Infusion Center Hematology/Oncology [address] [place] [address] Q3WK IMFINZI/CISPLATIN/GEMZAR/L AB &OV 06/18* Hematology/Oncolog y Comment on above: Q3WK IMFINZI/CISPLATIN/GEMZAR/LAB &OV 06/18* Start: 06-18-2025 End: 06-18-2025 ambulatory [facility] Comment on above: (SO)CBC/CMP(S)/TSH/T4/CORTISOL* Q6WK LAB W/OV OV/LAB EARLY/CHEMO * [place]O Start: 06-17-2025 Influenza vaccination Influ[facility] Vacc[facility]) [facility] Start: 06-12-2025 End: 06-12-2025 Patient encounter procedure 06/12/2025 10:00 AM EDT Appointment Radiology [address] [place] [address] Cholangiocarcinoma (HCC) [C22.1] Radiology Comment on above: Cholangiocarcinoma (HCC) [C22.1] Start: 06-11-2025 End: 06-11-2025 ambulatory [facility] Comment on above: cbc D8 GEMZAR/CISPLATIN/ LAB EARLY* delayed from 06/04 Start: 06-10-2025 End: 06-10-2025 Patient encounter procedure 06/10/2025 8:20 AM EDT Office Visit [facility] [address] [place] [address] Efrain Peters DO [address] [place] [address] 6 mo follow up [facility] [place] Comment on above: 6 mo follow up Start: 06-04-2025 End: 06-04-2025 ambulatory [facility] Comment on above: (S)CBC* D8 GEMZAR/CISPLATIN/ LAB EARLY* MIGHT BE 5-10 MIN LA TE FROM EYE APT Start: 05-28-2025 End: 05-28-2025 ambulatory [facility] Comment on above: (SO)CBC* D8 GEMZAR/CISPLATIN/ LAB EARLY* Q3WK IMFINZI/CISPLAT IN/GEMZAR/LAB &OV 05/27* Start: 05-27-2025 End: 05-27-2025 ambulatory [facility] Comment on above: (SO)CBC/CMP(S)/TSH/T4/CORTISOL* Q6WK LAB W/OV OV/LAB EARLY/CHEMO * [place]O Start: 05-21-2025 End: 05-21-2025 ambulatory 05/21/2025 8:00 AM EDT [facility] Hematology/Oncology [address] [place] [address] Q3WK IMFINZI/CISPLATIN/GEMZAR/L AB&OV 05/20* Hematology/Oncolog y Comment on above: Q3WK IMFINZI/CISPLATIN/GEMZAR/LAB&OV 05/20 * Start: 05-20-2025 End: 05-20-2025 ambulatory [facility] Comment on above: (SO)CBC/CMP(S)/TSH* OV/LAB EARLY/CHEMO * CRISTO Start: 05-16-2025 End: 05-16-2025 Patient encounter procedure 05/16/2025 8:00 AM EDT Appointment [address] [place] [address] Debra Woods MD [address] [place], [place] [id number] ERCP w/stent change, pt not on any blood thinners or diabetic meds to stop [facility] Comment on above: ERCP w/stent change, pt not on any blood thinners or diabetic meds to stop Start: 05-14-2025 End: 05-14-2025 ambulatory [facility] Comment on above: (S)CBC* D8 GEMZAR/CISPLATIN/ LAB EARLY* D8 GEMZAR/CISPLATIN/ LAB EARLY*PT MAY BE LATE Start: 05-07-2025 End: 05-07-2025 ambulatory [facility] Comment on above: (SO)CBC* D8 GEMZAR/CISPLATIN/ LAB EARLY* Q3WK IMFINZI/CISPLAT IN/GEMZAR/LAB &OV 05/06* Q3WK IMFINZI/CISPLAT IN/GEMZAR/LAB &OV 05/06 (Skip D8 this cycle only)* Start: 05-06-2025 End: 05-06-2025 ambulatory [facility] Comment on above: (SO)CBC/CMP(S)/TSH/T4/CORTISOL* Q6WK LAB W/OV OV/LAB EARLY/CHEMO * [place] Start: 04-30-2025 End: 04-30-2025 ambulatory Hematology/Oncolog y Comment on above: Q3WK IMFINZI/CISPLATIN/GEMZAR/LAB&OV 04/16 4* Q3WK IMFINZI/CISPLAT IN/GEMZAR/LAB&OV 04/26* Start: 04-29-2025 End: 04-29-2025 ambulatory [facility] Comment on above: (SO)CBC/CMP(S)/TSH* OV/LAB EARLY/CHEMO * C[place]O Start: 04-26-2025 End: 04-26-2025 ambulatory [facility] Comment on above: (SO)CBC/CMP(S)/TSH* OV/LAB EARLY/CHEMO * CRITSO Start: 04-24-2025 Administration of blood product [facility] Start: 04-24-2025 [facility] Start: 04-23-2025 End: 04-23-2025 ambulatory [facility] Comment on above: (S)CBC* D8 GEMZAR/CISPLATIN/ LAB EARLY* Start: 04-16-2025 End: 04-16-2025 ambulatory [facility] Comment on above: (S)CBC* D8 GEMZAR/CISPLATIN/ LAB EARLY* Q3WK IMFINZI/CISPLAT IN/GEMZAR/LAB &OV 04/15* Start: 04-15-2025 End: 04-15-2025 ambulatory [facility] Comment on above: (SO)CBC/CMP(S)/TSH/T4/CORTISOL* Q6WK LAB W/OV OV/LAB EARLY/CHEMO * C[place] Start: 04-09-2025 End: 04-09-2025 Nutrition therapy 04/09/2025 12:30 PM EDT [facility] [address] [place] [address] [address], [address] [place] [address] f/u naresh/ maln/ [facility] Comment on above: f/u naresh/ maln/ zenpep Start: 04-09-2025 End: 04-09-2025 ambulatory 04/09/2025 8:00 AM EDT Infusion Center Hematology/Oncology [address] [place] [address] Q3WK IMFINZI/CISPLATIN/GEMZAR/L AB &OV 04/08* Hematology/Oncolog y Comment on above: Q3WK IMFINZI/CISPLATIN/GEMZAR/LAB &OV * Start: 04-08-2025 End: 04-08-2025 ambulatory [facility] Comment on above: (SO)CBC/CMP(S)/TSH/T4/CORTISOL* Q6WK LAB W/OV 6 WK OV/LAB EARLY/CH EMO 04/09* ABRAMOVICH OV/LAB EARLY/CHEMO * ABRAMOVICH Start: 04-02-2025 End: 04-02-2025 Nutrition therapy 04/02/2025 10:00 AM EDT [facility] [address] [place], [place] [id number] [place]ano Berry, RD [address] [place] [address] NUTRITION Nutrition Therapy Comment on above: NUTRITION Start: 04-02-2025 End: 04-02-2025 ambulatory [facility] Comment on above: (S)CBC* D8 GEMZAR/CISPLATIN/ LAB EARLY* D8 GEMZAR/CISPLATIN/ LAB 04/01* Start: 04-01-2025 End: 04-01-2025 Patient encounter procedure 04/01/2025 8:00 AM EDT Appointment Radiology [address] [place], [place] [id number] Cholangiocarcinoma (HCC) [C22.1] Radiology Comment on above: Cholangiocarcinoma (HCC) [C22.1] Start: 03-26-2025 End: 06-25-2025 Cancer Ag 19-9 [Units/volume] in Serum or Plasma CA 19-9 Lab Routine Cholangiocarcinoma (HCC) Expected: 03/26/2025, Expires: 06/25/2025 [facility] Work Phone: Comment on above: Expected: 03/26/2025, Expires: Start: 03-26-2025 End: 03-26-2025 Nutrition therapy 03/26/2025 12:30 PM EDT [facility] [address] [place] [address] [address], RD [address] [place] [address] NUTRITION Nutrition Therapy Comment on above: NUTRITION Start: 03-26-2025 End: 03-26-2025 ambulatory [facility] Comment on above: (SO)CBC* D8 GEMZAR/CISPLATIN/ LAB EARLY* SCHEDULE MRI Start: 03-21-2025 End: 03-21-2025 ambulatory [facility] Comment on above: (SO)CBC(S) OV/LAB EARLY/CHEMO * WITH PROVIDER PER 02/25 AVS Start: 03-19-2025 End: 03-19-2025 ambulatory [facility] Comment on above: (SO)CBC/CMP(S)/TSH* Q3WK IMFINZI/CISPLAT IN/GEMZAR/LAB EARLY* Q3WK IMFINZI/CISPLAT IN/GEMZAR/LAB&OV 03/14* Start: 03-14-2025 End: 03-14-2025 ambulatory [facility] Comment on above: (SO)CBC/CMP(S)/TSH* OV/LAB EARLY/CHEMO * WITH PROVIDER PER 02/25 AVS Start: 03-12-2025 End: 03-12-2025 Patient encounter procedure Cat Scan Comment on above: Cholangiocarcinoma (HCC) [C22.1] Start: 03-05-2025 End: 03-05-2025 Nutrition therapy 03/05/2025 9:00 AM EDT [facility] [address] [place] [address] [address], [address] [place] [address] F/u PERT trial Nutrition Therapy Comment on above: F/u PERT trial Start: 03-05-2025 End: 03-05-2025 ambulatory [facility] Comment on above: CBC* D8 GEMZAR/CISPLATIN/ LAB EARLY* (S)CBC* Start: 02-26-2025 End: 02-26-2025 ambulatory 02/26/2025 8:00 AM EDT Infusion Center Hematology/Oncology [address] [facility] [place] [address] Q3WK IMFINZI/CISPLATIN/GEMZAR/L AB &OV 02/25* Hematology/Oncolog y Comment on above: Q3WK IMFINZI/CISPLATIN/GEMZAR/LAB &OV * Start: 02-25-2025 End: 02-25-2025 ambulatory [facility] Comment on above: CBC/CMP/TSH/T4/CORTISOL* Q6WK LAB W/OV 6 WK OV/LAB EARLY/CH EMO 02/26* JESSEOVICH (SO)CBC/CMP(S)/TSH/T 4/CORTISOL* Q6WK LAB W/OV Start: 02-14-2025 End: 05-16-2025 MYA ISTAT BMP MYA ISTAT BMP Lab Routine Cholangiocarcinoma (HCC) Expected: 02/14/2025, Expires: 05/16/2025 [facility] Work Phone: Comment on above: Expected: 02/14/2025, Expires: Start: 02-14-2025 End: 02-14-2025 ambulatory [facility] Comment on above: (SO)CBC/CMP* D8 GEMZAR/CISPLATIN/ LAB EARLY* Start: 02-12-2025 End: 02-12-2025 ambulatory [facility] Comment on above: CBC* DAY 8 GEMZAR/CISPLAT IN/AUTH EXP?* D8 GEMZAR/CISPLATIN/ LAB EARLY* (SO)CBC* Start: 02-05-2025 End: 02-05-2025 ambulatory [facility] Comment on above: CBC/CMP/TSH* Q3wk Durvalumab/Cisp latin/Gemzar/AUTH EXP?* Q3WK IMFINZI/CISPLAT IN/GEMZAR/LAB EARLY* (SO)CBC/CMP(S)/TSH* Start: 01-25-2025 Covid-19 Vaccine ( season) Covid-19 Vaccine ( season) [facility] Start: 01-25-2025 Covid-19 Vaccine (8 - Moderna risk season) Covid-19 Vaccine (8 - Moderna risk season) [facility] Start: 01-23-2025 End: 01-23-2025 ambulatory [facility] Comment on above: CBC * DAY 8 GEMZAR/CISPLAT IN/AUTH EXP?* D8 GEMZAR/CISPLATIN/ LAB EARLY* Start: 01-15-2025 End: 01-15-2025 ambulatory [facility] Comment on above: CBC/CMP/TSH/T4/Cortisol* START Q3wk Durvaluma b/Cisplatin/Gemzar/AUTH EXP?* CBC/CMP(S)/TSH/T4/Co rtisol* NEEDS CONSENT/START Q3WK IMFINZI/GEMZAR/CISPLATIN/LAB EARLY* Start: 12-31-2024 End: 12-31-2024 ambulatory 12/31/2024 2:00 PM EDT Visit (SP) Office Hematology/Oncology [address] [place] [address] [place] [address] [place] [address] CERTIFIED INDOOR ENVIRONMENTALIST/OMENTAL CARCINOMA/REFERRED BR DR MALAGON/ FIST AVAILABLE OK PER DR SALAZAR* Hematology/Oncolog y Comment on above: CERTIFIED INDOOR ENVIRONMENTALIST/OMENTAL CARCINOMA/REFERRED BR DR KINDRA MONTAÑO/ FIST AVAILABLE OK PER DR SALAZAR* Start: 12-25-2024 Patient discharge [facility] Start: 12-18-2024 Colonoscopy flx dx w/collj spec when pfrmd DIAGNOSTIC COLONOSCOPY [facility] Start: 12-18-2024 Patient discharge [facility] Start: 12-10-2024 End: 03-11-2025 25-hydroxyvitamin D3 [Mass/volume] in Serum or Plasma [facility] Comment on above: Expected: 12/10/2024, Expires: Start: 12-10-2024 End: 03-11-2025 Cobalamin (Vitamin B12) [Mass/volume] in Serum or Plasma [facility] Comment on above: Expected: 12/10/2024, Expires: Start: 12-10-2024 End: 03-11-2025 Comprehensive metabolic 2000 panel - Serum or Plasma [facility] Comment on above: Expected: 12/10/2024, Expires: Start: 12-10-2024 End: 03-11-2025 Hemoglobin A1c in Blood [facility] Comment on above: Expected: 12/10/2024, Expires: Start: 12-10-2024 End: 03-11-2025 Lipid 1996 panel - Serum or Plasma [facility] Comment on above: Expected: 12/10/2024, Expires: Start: 12-10-2024 End: 03-11-2025 Thyrotropin [Units/volume] in Serum or Plasma [facility] Comment on above: Expected: 12/10/2024, Expires: Start: 12-10-2024 End: 03-11-2025 Thyroxine (T4) free [Mass/volume] in Serum or Plasma [facility] Comment on above: Expected: 12/10/2024, Expires: Start: 12-10-2024 End: 12-10-2024 Patient encounter procedure 12/10/2024 8:00 AM EST Office Visit [facility] [address] [place] [address] Efrain Peters DO [address] [place] [address] medicare wellness [facility] Comment on above: medicare wellness Start: 12-07-2024 Annual PCP Team Chronic Disease Visit Annual PCP Team Chronic Disease Visit [facility] Start: 11-20-2024 Patient discharge [facility] Start: 11-19-2024 Care planning and problem solving actions [facility] Start: 11-19-2024 Care planning and problem solving actions [facility] Start: 11-18-2024 Admission procedure [facility] Start: 11-18-2024 Referral to gastroenterology service [facility] Start: 11-18-2024 Referral to general surgeon [facility] Start: 11-18-2024 Application of intermittent pneumatic compression device [facility] Start: 11-18-2024 Cardiac monitoring [facility] Start: 11-18-2024 Catheterization of vein [facility] Start: 11-18-2024 Consultation [facility] Start: 11-18-2024 Continuous pulse oximetry [facility] Start: 11-18-2024 Notification of physician [facility] Start: 11-18-2024 Vital signs measurements [facility] Start: 11-18-2024 [facility] Start: 11-18-2024 Following clinical pathway protocol [facility] Start: 11-13-2024 DIABETES SCREEN DIABETES SCREEN [facility] Start: 10-26-2024 Patient referral [facility] Work Phone: Start: 10-25-2024 Ercp remove calculi/debris biliary/pancreas duct ERCP REMOVE DUCT CALCULI [facility] Start: 10-25-2024 Ercp stent placement biliary/pancreatic duct ERCP DUCT STENT PLACEMENT [facility] Start: 10-25-2024 [facility] Start: 10-25-2024 Patient discharge [facility] Start: 10-24-2024 [facility] Start: 10-24-2024 [facility] Start: 10-17-2024 Advance Directive Discussion Advance Directive Discussion [facility] Start: 10-17-2024 Medicare Advantage Annual Wellness Visit Medicare Advantage Annual Wellness Visit [facility] Start: 06-17-2024 COVID-19 Vaccine ( season) COVID-19 Vaccine () [facility] Start: 06-17-2024 Covid-19 Vaccine ( season) Covid-19 Vaccine () [facility] Start: 06-17-2024 Influenza vaccination Influenza Vaccine (#1) [facility] Start: 11-29-2023 ANNUAL PCP TEAM CHRONIC DISEASE VISIT ANNUAL PCP TEAM CHRONIC DISEASE VISIT [facility] Start: 11-29-2023 BP CONTROLLED (<130/80) BP CONTROLLED (<130/80) [facility] Start: 10-17-2023 Advance Directive Discussion Advance Directive Discussion [facility] Start: 06-17-2023 Covid-19 Vaccine ( season) Covid-19 Vaccine ( season) [facility] Start: 06-17-2023 Influenza vaccination [facility] Start: 11-29-2022 End: 01-29-2023 C reactive protein [Mass/volume] in Serum or Plasma C-REACTIVE PROTEIN (CRP) Lab Routine Essential hypertension Expected: 11/29/2022, Expires: 01/29/2023 [facility] Work Phone: Comment on above: Expected: 11/29/2022, Expires: Start: 11-29-2022 End: 01-29-2023 CBC W Auto Differential panel - Blood CBC + DIFF Lab Routine IFG (impaired fasting glucose) Mixed hyperlipidemia Expected: 11/29/2022, Expires: 01/29/2023 [facility] Work Phone: Comment on above: Expected: 11/29/2022, Expires: 3 Start: 11-29-2022 End: 01-29-2023 Comprehensive metabolic 2000 panel - Serum or Plasma COMP METABOLIC PANEL Lab Routine Essential hypertension Expected: 11/29/2022, Expires: 01/29/2023 [facility] Work Phone: Comment on above: Expected: 11/29/2022, Expires: Start: 11-29-2022 End: 01-29-2023 Hemoglobin A1c in Blood HGB A1C Lab Routine IFG (impaired fasting glucose) Expected: 11/29/2022, Expires: 01/29/2023 [facility] Work Phone: Comment on above: Expected: 11/29/2022, Expires: 3 Start: 11-29-2022 End: 01-29-2023 Lipid 1996 panel - Serum or Plasma LIPID PANEL BASIC Lab Routine Mixed hyperlipidemia Expected: 11/29/2022, Expires: 01/29/2023 [facility] Work Phone: Comment on above: Expected: 11/29/2022, Expires: 3 Start: 11-29-2022 End: 01-29-2023 Thyrotropin [Units/volume] in Serum or Plasma TSH BLD Lab Routine Acquired hypothyroidism Expected: 11/29/2022, Expires: 01/29/2023 [facility] Work Phone: Comment on above: Expected: 11/29/2022, Expires: Start: 11-29-2022 End: 01-29-2023 Thyroxine (T4) free [Mass/volume] in Serum or Plasma T4 FREE/FREE THYROX Lab Routine Acquired hypothyroidism Expected: 11/29/2022, Expires: 01/29/2023 [facility] Work Phone: Comment on above: Expected: 11/29/2022, Expires: 3 Start: 11-29-2022 End: 01-29-2023 Triiodothyronine (T3) Free [Mass/volume] in Serum or Plasma T3 FREE BLD Lab Routine Acquired hypothyroidism Expected: 11/29/2022, Expires: 01/29/2023 [facility] Work Phone: Comment on above: Expected: 11/29/2022, Expires: 3 Start: 2022 RSV Immunization for Adults (1 - 1-dose 75+ series) RSV Immunization for Adults (1 - 1-dose 75+ series) [facility] Start: 2022 RSV Vaccine (1 - 1-dose 75+ series) RSV Vaccine (1 - 1-dose 75+ series) [facility] Start: 10-17-2022 ADVANCE DIRECTIVE DISCUSSION ADVANCE DIRECTIVE DISCUSSION [facility] Start: 04-25-2016 FECAL OCCULT BLOOD FECAL OCCULT BLOOD [facility] Start: 2007 RSV Vaccine (1 - 1-dose 60+ series) RSV Vaccine (1 - 1-dose 60+ series) [facility] Start: 1992 COLOGUARD (FIT-DNA) COLOGUARD (FIT-DNA) [facility] Start: [address] COLONOGRAPHY [facility] Start: 1992 SIGMOIDOSCOPY SIGMOIDOSCOPY [facility] Start: 1965 Anxiety Screening Anxiety Screening [facility] Start: 1965 Depression Screening Depression Screening [facility] Start: 1965 Hepatitis C screening Hepatitis C Screening [facility] Start: 1959 Depression Screening Depression Screening [facility] Start: 1947 Lipid panel Lipid Panel [facility] Start: 1947 Thyroid stimulating hormone measurement TSH Level [facility] Bacteria identified in Urine by Culture URINE CULTURE Microbiology Routine Urinary frequency Ordered: 10/05/2024 [facility] Work Phone: Comment on above: Ordered: 10/05/2024 End: 12-31-2025 CBC W Auto Differential panel - Blood COMPLETE BLOOD COUNT AND DIFFERENTIAL Lab STAT Cholangiocarcinoma (HCC) Every 3 weeks for 24 Occurrences starting 12/31/2024 until 12/31/2025 [facility] Work Phone: Comment on above: Every 3 weeks for 24 Occurrences startin g 12/31/2024 until 12/31/2025 Clostridioides diffi cile toxin genes [Presence] in Stool by ELISA with probe detection C. DIFFICILE PCR Lab Routine Generalized abdominal pain Diarrhea, unspecified type Ordered: 10/08/[address] [facility] Comment on above: Ordered: 10/08/2024 End: 12-31-2025 Comprehensive metabolic 2000 panel - Serum or Plasma COMPREHENSIVE METABOLIC PANEL Lab STAT Cholangiocarcinoma (HCC) Every 3 weeks for 24 Occurrences starting 12/31/2024 until 12/31/[address] [facility] Comment on above: Every 3 weeks for 24 Occurrences startin g 12/31/2024 until 12/31/2025 End: 12-31-2025 Cortisol [Mass/volume] in Serum or Plasma CORTISOL, SERUM Lab Routine Cholangiocarcinoma (HCC) Every 6 weeks for 9 Occurrences starting 12/31/2024 until 12/31/[address] [facility] Comment on above: Every 6 weeks for 9 Occurrences starting 12/31/2024 until 12/31/2025 End: 03-27-2026 CT Abdomen and Pelvis W contrast IV CT ABD/PEL W IVCON Radiology Routine Cholangiocarcinoma (HCC) 1 Occurrences starting 02/25/2025 until 03/27/2026 [facility] Work Phone: Comment on above: 1 Occurrences starting 02/25/2025 until 03/27/2026 CT Abdomen and Pelvi s W contrast IV CT ABD/PEL W IVCON Radiology Routine Cholangiocarcinoma (HCC) 03/12/2025 10:49 AM EDT [facility] Work Phone: End: 03-27-2026 CT Chest W contrast IV CT CHEST W IVCON Radiology Routine Cholangiocarcinoma (HCC) 1 Occurrences starting 02/25/2025 until 03/27/[address] [facility] Comment on above: 1 Occurrences starting 02/25/2025 until 03/27/2026 CT Chest W contrast IV CT CHEST W IVCON Radiology Routine Cholangiocarcinoma (HCC) 03/12/2025 10:49 AM EDT [facility] ENTERIC BACTERIAL PA TROY BY PCR ENTERIC BACTERIAL PANEL BY PCR Lab Routine Generalized abdominal pain Diarrhea, unspecified type Ordered: 10/08/2024 [facility] Work Phone: Comment on above: Ordered: 10/08/2024 End: 04-17-2026 ERCP ERCP Endoscopy Routine Cholangiocarcinoma (HCC) 1 Occurrences starting 04/17/2025 until 04/17/2026 [facility] Work Phone: Comment on above: 1 Occurrences starting 04/17/2025 until 04/17/2026 Ferritin [Mass/volum e] in Serum or Plasma [facility] Fine needle aspiration [facility] Work Phone: Comment on above: Release Upon Ordering for 1 Occurrences starting 12/05/2024, 1 completed End: 12-10-2025 Flexible sigmoidoscopy study COLONOSCOPY DIAGNOSTIC Endoscopy Routine Altered bowel function 1 Occurrences starting 12/10/2024 until 12/10/2025 [facility] Work Phone: Comment on above: 1 Occurrences starting 12/10/2024 until 12/10/2025 Folic acid measureme nt, RBC [facility] Folic acid measureme nt, RBC [facility] Giardia lamblia+Cryptosporidium sp Ag [Presence] in Stool by Immunoassay CRYPTOSPORIDIUM AND GIARDIA ANTIGENS BY EIA Microbiology Routine Generalized abdominal pain Diarrhea, unspecified type Ordered: 10/08/[address] [facility] Comment on above: Ordered: 10/08/2024 Helicobacter pylori Ag [Presence] in Stool by Immunoassay HELICOBACTER PYLORI ANTIGEN BY EIA, STOOL Microbiology Routine Generalized abdominal pain Diarrhea, unspecified type Ordered: 10/08/[address] [facility] Comment on above: Ordered: 10/08/2024 Hematocrit [Volume Fraction] of Blood [facility] Hematocrit [Volume Fraction] of Blood [facility] End: 04-20-2026 MR Liver WO and W contrast IV MRI LIVER WO/W IVCON Radiology Routine Cholangiocarcinoma (HCC) 1 Occurrences starting 03/21/2025 until 04/20/[address] [facility] Comment on above: 1 Occurrences starting 03/21/2025 until 04/20/2026 MR Liver WO and W co ntrast IV MRI LIVER WO/W IVCON Radiology Routine Cholangiocarcinoma (HCC) 04/01/2025 8:42 AM EDT [facility] Work Phone: End: 06-26-2026 MR Liver WO and W contrast IV MRI LIVER (EOVIST) WO/W IVCON Radiology Routine Cholangiocarcinoma (HCC) 1 Occurrences starting 05/27/2025 until 06/26/2026 [facility] Work Phone: Comment on above: 1 Occurrences starting 05/27/2025 until 06/26/2026 MR Liver WO and W co ntrast IV MRI LIVER (EOVIST) WO/W IVCON Radiology Routine Cholangiocarcinoma (HCC) 06/04/2025 3:05 PM EDT [facility] Work Phone: End: 12-29-2023 Mri any jt upper extremity w/o contrast matrl MRI SHOULDER WO IVCON RT Radiology Routine Shoulder instability, 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 Chronic right shoulder pain 1 Occurrences starting 11/29/2022 until 12/29/2023 [facility] Work Phone: Comment on above: 1 Occurrences starting 11/29/2022 until 12/29/2023 PANC ELASTASE, FECAL PANC ELASTA SE, FECAL Lab Routine Generalized abdominal pain Diarrhea, unspecified type Ordered: 10/08/[address] [facility] Comment on above: Ordered: 10/08/2024 Patient Education [facility] Work Phone: Patient referral [facility] Work Phone: End: 12-31-2025 Thyrotropin [Units/volume] in Serum or Plasma THYROID STIMULATING HORMONE Lab Routine Cholangiocarcinoma (HCC) Malaise and fatigue Every 3 weeks for 20 Occurrences starting 12/31/2024 until 12/31/[address] [facility] Comment on above: Every 3 weeks for 20 Occurrences startin g 12/31/2024 until 12/31/2025 Total iron binding capacity measurement [facility] End: 07-04-2026 US Lower extremity vein - right US DVT LOWER RIGHT Radiology STAT Lower extremity edema 1 Occurrences starting 06/04/2025 until 07/04/2026 [facility] Work Phone: Comment on above: 1 Occurrences starting 06/04/2025 until 07/04/2026 End: 05-16-2025 XR ERCP READ ONLY [facility] Work Phone: Comment on above: ONCE for 1 Occurrences starting 05/16/20 25 until 05/16/2025 End: 12-29-2023 XR SHOULDER ORTHO 4V AP/TRUE AP/LAT/OUTLET RIGHT XR SHOULDER ORTHO 4V AP/TRUE AP/LAT/OUTLET RIGHT Radiology Routine Shoulder instability, 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 Chronic right shoulder pain 1 Occurrences starting 11/29/2022 until 12/29/2023 [facility] Work Phone: Comment on above: 1 Occurrences starting 11/29/2022 until 12/29/2023 XR SHOULDER ORTHO 4V AP/TRUE AP/LAT/OUTLET RIGHT XR SHOULDER ORTHO 4V AP/TRUE AP/LAT/OUTLET RIGHT Radiology Routine Shoulder instability, 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 11/29/2022 8:59 AM EST [facility] Work Phone: [facility] Immunizations Immunization Date Immunization Notes Care Provider Sunday [facility] 07-27-2024 influenza virus vacc ine, unspecified formulation Onel Dumont MD Work Phone: [facility] 08-12-2023 influenza virus vacc ine, unspecified formulation Xr Gardner Work Phone: [facility] 09-06-2022 influenza virus vacc ine, unspecified formulation Efrain Peters DO Work Phone: [facility] 05-18-2021 tetanus toxoid, redu galen diphtheria toxoid, and acellular pertussis vaccine, adsorbed Efrain Peters DO Work Phone: [facility] Work Phone: 01-12-2021 Covid (Moderna) Dr. Efrain soria DO Work Phone: [facility] 12-15-2020 Coco (Moderna) Dr. Efrain soria DO Work Phone: [facility] 06-13-2020 influenza, high dose seasonal, preservative-free Efrain Peters DO Work Phone: [facility] 06-13-2020 zoster vaccine recombinant Efrain Peters DO Work Phone: [facility] 06-13-2020 influenza virus vacc ine, unspecified formulation Brayan Herrera MD Work Phone: [facility] 11-08-2019 zoster vaccine recombinant Efrain Peters DO Work Phone: [facility] 10-28-2017 influenza, high dose seasonal, preservative-free Efrain Peters DO Work Phone: [facility] 11-05-2015 influenza, seasonal, injectable Efrain Peters DO Work Phone: [facility] 10-03-2015 influenza, seasonal, injectable Efrain Peters DO Work Phone: [facility] 10-03-2015 pneumococcal conjuga te vaccine, 13 valent Efrain Peters DO Work Phone: [facility] 08-23-2014 influenza, high dose seasonal, preservative-free Efrain Peters DO Work Phone: [facility] 10-15-2013 pneumococcal polysaccharide vaccine, 23 valent Efrain Peters DO Work Phone: [facility] 08-16-2013 influenza virus vacc ine, unspecified formulation Efrain Peters DO Work Phone: [facility] 10-12-2012 influenza virus vacc ine, unspecified formulation Efrain Peters DO Work Phone: [facility] Work Phone: 10-12-2011 zoster vaccine, live Efrain Peters DO Work Phone: [facility] 09-03-2011 influenza virus vacc ine, unspecified formulation Efrain Peters DO Work Phone: [facility] Work Phone: 03-09-2011 tetanus toxoid, redu galen diphtheria toxoid, and acellular pertussis vaccine, adsorbed Efrain Peters DO Work Phone: [facility] 08-24-2010 influenza virus vacc ine, unspecified formulation Efrain Peters DO Work Phone: [facility] 08-11-2009 influenza virus vacc ine, unspecified formulation Efrain Peters DO Work Phone: [facility] Work Phone: 10-03-2008 influenza virus vacc ine, unspecified formulation Efrain Peters DO Work Phone: [facility] Work Phone: 05-06-2003 diphtheria and tetan us toxoids, adsorbed for pediatric use Efrain Peters DO Work Phone: [facility] Work Phone: Payers Date Payer Category Payer Self-pay 2023 Medicare HMO [employer] [id number] 2021 Medicare [employer] MEDICARE A [employer] MEDICARE PPO [id number] 2021-Present [phone] [address] [place] [address] [facility] [id number] 2021 Medicare (Managed Care) [employer] [place]ARE [id number] 2021 Medicare [id number] Unknown [id number] 2.16.840.1.895360.3.579.2. 462 Unknown [id number] 2.16.840.1.620570.3.579.2. 462 Unknown [id number] 2.16.840.1.541053.3.579.2. 462 Unknown [id number] 2.16.840.1.342848.3.579.2. 462 Unknown [id number] 2.16.840.1.498912.3.579.2. 462 Unknown [id number] 2.16.840.1.737920.3.579.2. 462 Unknown [id number] 2.16.840.1.563908.3.579.2. 462 Unknown [id number] 2.16.840.1.780703.3.579.2. 462 Unknown [id number] 2.16.840.1.728995.3.579.2. 462 Unknown [id number] 2.16.840.1.957329.3.579.2. 462 Unknown [id number] 2.16.840.1.580561.3.579.2. 462 Unknown [id number] 2.16.840.1.106085.3.579.2. 462 Unknown [id number] 2.16.840.1.313100.3.579.2. 462 Unknown [id number] 2.16.840.1.379386.3.579.2. 462 Unknown [id number] 2.16.840.1.313985.3.579.2. 462 Unknown [id number] 2.16.840.1.861845.3.579.2. 462 Unknown [id number] 2.16.840.1.250580.3.579.2. 462 Unknown [id number] 2.16.840.1.529169.3.579.2. 462 Unknown [id number] 2.16.840.1.193953.3.579.2. 462 Unknown [id number] 2.16.840.1.839953.3.579.2. 462 Unknown [id number] 2.16.840.1.851820.3.579.2. 462 Unknown [id number] 2.16.840.1.832382.3.579.2. 462 Unknown [id number] 2.16.840.1.710770.3.579.2. 462 Unknown [id number] 2.16.840.1.516764.3.579.2. 462 Unknown [id number] 2.16.840.1.577000.3.579.2. 462 Unknown [id number] 2.16.840.1.855750.3.579.2. 462 Unknown [id number] 2.16.840.1.765084.3.579.2. 462 Unknown [id number] 2.16.840.1.118540.3.579.2. 462 Social History Date Type Detail Facility Start: 11-29-2022 End: 06-24-2025 Tobacco smoking status NHIS Never smoked tobacco [facility] Work Phone: Start: 11-29-2022 End: 12-05-2024 Tobacco use and exposure Smokeless tobacco non-user [facility] Work Phone: Start: 11-29-2022 End: 06-24-2025 Alcohol intake Current non-drinker of alcohol (finding) [facility] Start: 1945 Sex Assigned At Not on file [facility] Start: 01-31-2023 End: 11-25-2023 History of Social function [facility] Work Phone: Start: 01-31-2023 End: 11-25-2023 Tobacco use panel [facility] Work Phone: Start: 09-17-2012 Adult Depression Screening Assessment 2 [facility] Work Phone: Start: 12-05-2024 Alcoholic beverage intake Lifetime non-drinker (finding) [facility] Start: 11-27-2024 End: 12-25-2024 Sex Male (finding) SaludFÁCIL [facility] Start: 10-15-2019 Non-smoker Non-smoker [facility] Start: 1945 Sex Assigned At Male [facility] (I/We) worried wheth er (my/our) food would run out before (I/we) got money to buy more. Never true [facility] Medical Equipment Procedure Code Equipment Code Equipment Origin al Text Equipment Identifier Dates ERCP (endoscopic retrograde cholangiopancreatog dhiraj) ([id number]) Polymeric biliary stent, non-bioabsorbable ()[id number] FDA Start: 10-25-2024 ERCP (endoscopic retrograde cholangiopancreatog dhiraj) Polymeric pancreatic stent, non-bioabsorbable ()[id number] FDA Start: 10-25-2024 ERCP (endoscopic retrograde cholangiopancreatog dhiraj) ([id number]) Polymer-metal biliary stent, non-bioabsorbable ()[id number] FDA Start: 11-19-2024 TERRI MCGHEE FDA Start: 10-22-2019 MESH,3DMAX RIGHT XL [id number] FDA Start: 10-22-2019 TACKER,SECURE STRAP FDA Start : 10-22-2019 TERRI MCGHEE FDA Start: 10-22-2019 MESH,3DMAX RIGHT XL [id number] FDA Start: 10-22-2019 TACKER,SECURE STRAP FDA Start : 10-22-2019 TERRI MCGHEE FDA Start: 10-22-2019 MESH,3DMAX RIGHT XL [id number] FDA Start: 10-22-2019 TACKER,SECURE STRAP FDA Start : 10-22-2019 TERRI MCGHEE FDA Start: 10-22-2019 MESH,3DMAX RIGHT XL [id number] FDA Start: 10-22-2019 RENATA SMITH FDA Start : 10-22-2019 Goals Date Patient Goal Desired Activity /State Functional Status Date Assessment Result Facility 06-25-2025 Functional status Patient Activi ty Up ad yudy [facility] Work Phone: 06-24-2025 Functional status Activity Abili ty With Assist of 1 [facility] Work Phone: 11-20-2024 Functional status Ambulates;Chair [facility] Work Phone: 05-19-2015 Are you deaf, or do you have serious difficulty hearing No 05/19/2015 1:44 PM EDT Lis Malik Ma No [facility] 05-19-2015 Are you blind, or do you have serious difficulty seeing, even when wearing glasses No 05/19/2015 1:44 PM EDT Lis Malik Ma No [facility] 05-19-2015 Do you have serious difficulty walking or climbing stairs No 05/19/2015 1:44 PM EDT Lis Malik Ma No [facility] 05-19-2015 Do you have difficul ty dressing or bathing No 05/19/2015 1:44 PM EDT Lis Malik Ma No [facility] 05-19-2015 Because of a physica l, mental, or emotional condition, do you have difficulty doing errands alone such as visiting a physician's office or shopping No 05/19/2015 1:44 PM EDT Lis Malik Ma No [facility] Mental Status Date Assessment Result Facility 06-24-2025 Cognitive function Awake;Alert;A ppropriate;Fol lows Commands [facility] Work Phone: 06-24-2025 Cognitive function Level Of Cons ciousness Awake;Alert;Appropriate [facility] Work Phone: 04-24-2025 Cognitive function Voice/Name [facility] Work Phone: 12-25-2024 Cognitive function Voice/Name [facility] Work Phone: 12-18-2024 Cognitive function Voice/Name [facility] Work Phone: 11-20-2024 Cognitive function Voice/Name [facility] Work Phone: 10-25-2024 Cognitive function Voice/Name;Light Pain [facility] Work Phone: 10-24-2024 Cognitive function Level Of Cons ciousness Awake;Alert;Appropriate;Fol lows Commands [facility] Work Phone: 05-19-2015 Because of a physica l, mental, or emotional condition, do you have serious difficulty concentrating, remembering, or making decisions 05/19/2015 1:44 PM EDT Lis Malik Ma No [facility] Clinical Notes 04-20-2016 to 06-25-2025 Telephone Encounter - Liliane Swanson RN - 06/25/2025 1:09 PM EDTTelephone Encounter - Liliane Swanson RN - 06/25/2025 1:09 PM EDT Note Date & Type Note Facility 06-25-2025 Telephone encounter Note Form atting of this note might be different from the original. Inpatient at [facility]; ER report given to Dr. Dumont. [facility] 06-25-2025 Miscellaneous Notes Formattin g of this note might be different from the original. Inpatient at [facility]; ER report given to Dr. Dumont. Message left for Russell to call back with update on how he is feeling (sent to ER 06/24) and if he will be in for treatment today. documented in this encounter [facility] 06-25-2025 Consult note [facility] 06-25-2025 Discharge summary Note Date/Time June 25, 2025 8:00am [facility] Medical Records Department [address] [place] [address] Instructions for Home/Discharge Instructions 06/25/25 0759 MR#: [id number] Acct: [id number] Name: RUSSELL VAUGHN Rep #:[id number] : 1945 79 From: Zaki mahoney MD PCP: Dr. Efrain Peters DO Status:AD M SHARI Discharge Instructions DC O2, CPAP, BIPAP needs Home O2 Discharge instructions: No Dressing / Incision Discharge Activity: Return to Normal Activity Dressing / Incision Call your doctor if you observe: Fever of 101 or Higher, Shortness of breath, Dizziness, Fainting spells, Swelling in the ankles, Chest pain and Increased palpitations (irregular heartbeat) Follow Up Care Test Results: Test results from this visit will be discussed in further detail at your follow-up appointment, if applicable. Discharge Plan Admission Admit Date/Time: 06/24/25 15:23 Attending Provider: Zaki Mosquera Primary Care Provider: Efrain Peters Consulting Providers: Bandar Salmeron Discharge Orders/Prescriptions Prescriptions: Continued levothyroxine [Levoxyl] 125 mcg tablet 125 mcg PO DAILY acetaminophen 325 mg Tablet 650 mg PO Q6H PRN PRN (Reason: Pain 1-10 Or Fever) Qty: 0 0RF Referrals / Follow Up: Efrain Peters DO [Primary Care Provider] - Within 1 Week Disposition Disposition (needs filled in before D/C Order can be placed): Home, Self Care 06/25/25 0800<Electronically signed by Zaki Mosquera MD>Zaki Mosquera MD CC: Dr. Bandar Salmeron DO; Dr. Efrain Peters DO ~ Signed [facility] Work Phone: 1(832) 225-825209-09-2025 Telephone encounter Note* Telephone Encounter - Liliane Swanson RN - 06/25/2025 9:04 AM EDT Message left for Russell to call back with update on how he is feeling (sent to ER 06/24) and if he will be in for treatment today. [facility]09-09-2025 Discharge summary [facility] Medical Records Department [address] [place] [address] Instructions for Home/Discharge Instructions 06/25/25 0759 MR#: [id number] Acct: [id number] Name: RUSSELL VAUGHN Rep #:[id number] : 1945 79 From: Zaki mahoney MD PCP: Dr. Efrain Peters DO Status:AD M SHARI Discharge Instructions DC O2, CPAP, BIPAP needs Home O2 Discharge instructions: No Dressing / Incision Discharge Activity: Return to Normal Activity Dressing / Incision Call your doctor if you observe: Fever of 101 or Higher, Shortness of breath, Dizziness, Fainting spells, Swelling in the ankles, Chest pain and Increased palpitations (irregular heartbeat) Follow Up Care Test Results: Test results from this visit will be discussed in further detail at your follow- up appointment, if applicable. Discharge Plan Admission Admit Date/Time: 06/24/25 15:23 Attending Provider: Zaki Mosqeura Primary Care Provider: Efrain Peters Consulting Providers: Bandar Salmeron Discharge Orders/Prescriptions Prescriptions: Continued levothyroxine [Levoxyl] 125 mcg tablet 125 mcg PO DAILY acetaminophen 325 mg Tablet 650 mg PO Q6H PRN PRN (Reason: Pain 1-10 Or Fever) Qty: 0 0RF Referrals / Follow Up: Efrain Peters DO [Primary Care Provider] - Within 1 Week Disposition Disposition (needs filled in before D/C Order can be placed): Home, Self Care 06/25/25 0800Zaki Mosquera MD CC: Dr. Bandar Salmeron DO; Dr. Efrain Peters DO ~ Signed [facility]09-09-2025 Progress note Author Sophie Stevens [facility] Note Date/Time June 24, 2025 10:52pm [facility] Medical Records Department [address] [place] [address] Progress Note - Hospitalist 06/24/256 MR#: [id number] Acct: [id number] Name: RUSSELL VAUGHN Rep #:[id number] : 1945 79 From: Sophie Russell PCP: Dr. Efrain Peters, DO Status:AD M SHARI Location: IA3 [id number] Hospitalist Note Nrsg noted BP at 2200 right arm-72/42, left arm-85/45. Assessed pt, he reports being winded with minimal exertion but cannot discern if it's from palpitations or general weakness. He states that he has occasional dizziness upon standing. He feels that he is not drinking enough water, states [facility] water has too many chemicals in it, it just tastes bad. I'd prefer bottled water. LSC throughout. No peripheral edema. 0.9%NS 1ltr over 4hrs ordered. He is agreeable to IVF. Will reassess in AM. 06/24/250 <Electronically signed by Sophie MARTEL> Cosigner Signature (if applicable): CC: ~ Signed [facility] Work Phone: 1(350) 875-474909-09-2025 History and physical note Author Bandar [facility] Note Date/Time June 24, 2025 10:16pm [facility] Medical Records Department [address] [place] [address] H&P Exam - Hospitalist 06/24/25 1523 MR#: [id number] Acct: [id number] Name: RUSSELL VAUGHN Rep #:[id number] : 1945 79 From: Bandar vizcaino DO PCP: Dr. Efrain Peters, DO Status:AD M [facility] Location: [facility] [id number] HPI - General General Date of Admission: 06/24/25 Date of Service: 06/24/25 Chief Complaint: Weakness and hypotension HPI Narrative RUSSELL VAUGHN, is a 79 M who presented today from the oncology office for weakness and hypotension. 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 Dumont. I reviewed Dr. Dumont's office note from 05/27 in [facility]. Patient initiallydeveloped symptoms of pain, pale stool and jaundice back in August 2024. 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 He was initiated on durvalumab/gemcitabine/cisplatin on January 15. LiverMRI around that time showed locally advanced disease. He more recently had an ERCP done on 05/16 for stent change (had stent placed prior to attempted lap naresh), but the stent had migrated and could not be reached. Dr. Dumont noted that the surgical team had discussed eventual cholecystectomy with the patient, but he suspected this would not be able to be done due to the patient'slocally advanced cancer. Plan was to continue chemotherapy per NCCN guidelines. Patient presented to the office today and was noted to be hypotensive to the 70s systolic and weaker than previous, so he was sent to the ED for further evaluation. In the ED, patient hypertensive to the 80s over 50s but otherwise was in normal sinus rhythm and stable on room air at rest. He was given IV fluids with improvement in his blood pressure to the 110s systolic. Labs notable for creatinine 1.14 (baseline 0.6-0.7), magnesium 1.0, hemoglobin 8.6 (recent baseline around 9). Chest x-ray was unremarkable. ED physician discussed with the patient who wished to stay overnight for further IV fluid and electrolyte resuscitation as needed. Hospitalist was then contacted for admission. I saw the patient at bedside in the ED. Patient was fatigued and fairly weak appearing but otherwise was sitting back comfortably in bed and answering questions appropriately. Notes that he has lost about 40 pounds over the past 2months. However, he attributes this to poor appetite due to change in taste from his chemotherapy regimen. He notably asked me about the possibility of cholecystectomy and stated that Dr. Dumont had told him that his cancer was improving significantly on his most recent imaging testing. Noted that his muscles in his legs feel weak and he has not been able to do much at home recently. He otherwise denies any acute pain or discomfort. Will be admitted for further management. [facility] Medical History Carcinomatosis Wears glasses Non-smoker Hypertension Right inguinal hernia Hypothyroid Nocturia Internal hemorrhoids GERD (gastroesophageal reflux disease) Erectile dysfunction Diverticulosis Home Medications ?Medication ?Instructions ?Recorded ?Last Taken ?Type acetaminophen 325 mg tablet 650 mg (2 x 325 mg) PO Q6H PRN PRN 11/20/24 Unknown Rx Pain 1-10 Or Fever #0 tabs levothyroxine 125 mcg tablet 125 mcg PO DAILY disorder of 06/24/25 06/24/25 History (Levoxyl) thyroid gland Allergy/AdvReac Type Severity Reaction Status Date / Time No Known Allergies Allergy Verified 04/24/25 11:12 Family History Mother Asthma Father Heart disease High cholesterol Surgical History History of ERCP S/P right inguinal hernia repair History of hydrocelectomy Hx of colonoscopy Social History Smoking Status: Never smoker second hand exposure: No alcohol intake: never substance use type: does not use caffeine: Yes what type of physical activity do you participate in: walking, aerobics and weight training frequency: daily ROS Constitutional Constitutional: Reports fatigue and weakness; Denies chills or fever(s) Eyes Eyes: Denies change in vision Cardiovascular Cardiovascular: Denies chest pain Respiratory/Chest Respiratory/Chest: Denies shortness of breath at rest Gastrointestinal Gastrointestinal: Denies abdominal pain, constipation, diarrhea, nausea or vomiting Musculoskeletal Musculoskeletal: Denies arthralgias or myalgias Neurologic Neurologic: Denies dizziness, focal weakness or headache(s) Vital Signs Vital Signs Vital Signs: 06/24/25 09:37 06/24/25 09:46 06/24/25 09:46 Temperature 98.0 F 98.0 F Temperature Source Oral Oral Pulse Rate 88 90 Pulse Rate [Lying] Pulse Rate [Standing (for 1 minute prior to obtaining)] Respiratory Rate 16 18 Respiratory Effort Normal Respiratory Pattern Normal Blood Pressure 82/56 L 88/58 L Blood Pressure [Lying] Blood Pressure [Sitting (for 1 minute prior to obtaining)] Blood Pressure [Standing (for 1 minute prior to obtaining)] Blood Pressure Mean 64 68 Blood Pressure Mean [Lying] Blood Pressure Mean [Sitting (for 1 minute prior to obtaining)] Blood Pressure Mean [Standing (for 1 minute prior to obtaining)] Pulse Ox 98 99 Oxygen Delivery Method Room Air Room Air 06/24/25 10:36 06/24/25 10:46 06/24/25 12:00 Temperature 98.1 F 98.4 F Temperature Source Oral Temporal Pulse Rate 78 89 72 Pulse Rate [Lying] Pulse Rate [Standing (for 1 minute prior to obtaining)] Respiratory Rate 16 18 16 Respiratory Effort Respiratory Pattern Blood Pressure 114/78 102/69 142/61 H Blood Pressure [Lying] Blood Pressure [Sitting (for 1 minute prior to obtaining)] Blood Pressure [Standing (for 1 minute prior to obtaining)] Blood Pressure Mean 90 80 88 Blood Pressure Mean [Lying] Blood Pressure Mean [Sitting (for 1 minute prior to obtaining)] Blood Pressure Mean [Standing (for 1 minute prior to obtaining)] Pulse Ox 98 95 97 Oxygen Delivery Method Room Air Room Air Room Air 06/24/25 13:00 06/24/25 14:00 06/24/25 14:15 Temperature Temperature Source Pulse Rate 82 78 Pulse Rate [Lying] 70 Pulse Rate [Standing (for 1 minute prior to obtaining)] 82 Respiratory Rate 18 16 Respiratory Effort Respiratory Pattern Blood Pressure 100/60 111/64 Blood Pressure [Lying] 93/60 Blood Pressure [Sitting (for 1 minute prior to obtaining)] 100/53 L Blood Pressure [Standing (for 1 minute prior to obtaining)] 118/67 Blood Pressure Mean 73 79 Blood Pressure Mean [Lying] 71 Blood Pressure Mean [Sitting (for 1 minute prior to obtaining)] 68 Blood Pressure Mean [Standing (for 1 minute prior to obtaining)] 84 Pulse Ox 94 98 Oxygen Delivery Method Room Air 06/24/25 15:00 Temperature Temperature Source Pulse Rate 75 Pulse Rate [Lying] Pulse Rate [Standing (for 1 minute prior to obtaining)] Respiratory Rate 18 Respiratory Effort Respiratory Pattern Blood Pressure 121/65 H Blood Pressure [Lying] Blood Pressure [Sitting (for 1 minute prior to obtaining)] Blood Pressure [Standing (for 1 minute prior to obtaining)] Blood Pressure Mean 83 Blood Pressure Mean [Lying] Blood Pressure Mean [Sitting (for 1 minute prior to obtaining)] Blood Pressure Mean [Standing (for 1 minute prior to obtaining)] Pulse Ox 95 Oxygen Delivery Method Weight Weight: 67.8 kg Body Mass Index (BMI) 22.7 Physical Exam Const alert, oriented x3, no apparent distress and average body habitus Constitutional Narrative: Elderly male, fatigued and fairly weak appearing, otherwise sitting back fairly comfortably in bed, conversing normally, in no acute distress. General Appearance: cooperative and comfortable HEENT normocephalic, head/scalp atraumatic, hearing grossly normal bilaterally, nasal mucous membranes and turbinates normal and moist oral mucous membranes Eyes PERRL, EOMs intact bilaterally and conjunctivae normal Neck full ROM Chest inspection of chest normal Resp normal respiratory effort, normal air movement, no use of accessory muscles and clear to auscultation bilaterally Cardio regular rate, regular rhythm, no murmurs and peripheral pulses 2+ throughout GI normal to inspection, nondistended, normoactive bowel sounds, soft to palpation,non-tender and non-distended Back/Spine normal ROM Extremity normal to inspection, full ROM and no pedal edema Skin no rashes or lesions noted Psych mental status grossly normal Results Lab / Micro Data 06/24/25 10:45 06/24/25 10:45 Labs: Laboratory Results - last 24 hr 06/24/25 10:45: WBC 5.6, RBC 2.49 L, Hgb 8.6 L, Hct 24.8 L, MCV 99.6 H, MCH 34.5H, MCHC 34.7, RDW Std Deviation 51.7 H, RDW Coeff of Meri 14.3, Plt Count 71 L, MPV 10.2, Immature Gran % (Auto) 1.400 H, Neut % (Auto) 63.0, Lymph % (Auto) 17.1 L, Cobb % (Auto) 16.4 H, Eos % (Auto) 1.6, Baso % (Auto) 0.5, Absolute Neuts (auto) 3.5, Absolute Lymphs (auto) 0.96, Nucleated RBC % 0, Platelet Estimate MOD DEC, PT 15.9 H, INR 1.2, APTT 37.3 H, Sodium 133, Potassium 3.9, Chloride 94 L, Carbon Dioxide 23.5, Anion Gap 16 H, BUN 22 H, Creatinine 1.14, Estim Creat Clear Calc 52.04, Est GFR (MDRD) Non-Af 66, BUN/Creatinine Ratio 19.5, Glucose 59 L, Lactic Acid 1.5, Calcium 8.6, Magnesium 1.0 L, Total Bilirubin 0.75, Direct Bilirubin 0.42 H, AST 44 H, ALT 17, Alkaline Phosphatase 220 H, Total Protein 6.4, Albumin 3.3 L, Globulin 3.1, Lipase 16 06/24/25 12:26: Urine Color Yellow, Urine Clarity Clear, Urine pH 6.0, Ur Specific Avenel 1.015, Urine Protein 30 H, Urine Glucose (UA) Normal, Urine Ketones 150 A*, Urine Occult Blood 10 H, Urine Nitrite Negative, Urine BilirubinNegative, Urine Urobilinogen 1 H, Ur Leukocyte Esterase Negative, Urine RBC 0 SEEN, Urine WBC 0 SEEN, Ur Squamous Epith Cells 0 SEEN, Urine Bacteria 0 SEEN, Hyaline Casts 0-5 SEEN, Urine Mucus 0 SEEN Micro: Microbiology 06/24/25 13:23 Stool Stool Occult Blood (LISETTE) - Final Occult Blood Positive Imaging Radiology Impression Chest X-Ray 06/24/25 10:38 IMPRESSION: No acute cardiopulmonary disease. Reading Location: [facility] Assessment & Plan Assessment/Plan (1) Adult failure to thrive: PLAN: Plan Patient is a 79-year-old male who presented to [facility] ED on 06/24/2025 from his oncology office with weakness and hypotension. 1. Adult failure to thrive in setting of cholangiocarcinoma ? Admit under observation status to [facility]. PT/OT/case management consulted. Nutrition consulted. Follows with Dr. Dumont with oncology, see HPI for further details. 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 Has been on chemotherapy since January. Has now lost about 40 pounds over the past 2 months. Notes he has not been eating or drinking much at all and has steadily become weaker. Lives at home with his and has had difficulty getting out of his chair this past week. Labs and low blood pressure on admit consistent with dehydration as below. Unfortunatelypatient seems to have poor insight into his condition; believes the cancer is improving and is asking about when his gallbladder can be removed to help take out the cancer. Will likely be okay for home with home health care on dischargebut given his worsening functional status, suspect he may not be an ideal chemotherapy candidate in the near future and may benefit from establishing withpalliative care. 2. Mild TANYA with dehydration and hypotension, hypomagnesemia ? Creatinine 1.14 on admit, baseline around 0.6-0.7. Hypotensive to the 80s systolic on admit. Magnesium 1.0. Hypotension improved with IV fluid resuscitation. IV magnesium supplementation given in the ED. Follow-up a.m. labs and monitor urine output. 3. Hypothyroidism ? Continue home Synthroid. 4. Anemia and thrombocytopenia ? Hemoglobin 8.6, platelet count 71 on admit. Reviewed CBC [facility] in [facility] the last few months and hemoglobin has been around 9 and platelet count around 70-90. Oncology attributed this to his chemotherapy. Iron studies done in the ED with ferritin 2355, consistent with anemia of chronic disease. No inpatient needs, continue close outpatient follow-up. DVT prophylaxis: Lovenox CODE STATUS: Full code, verified Expected disposition: TBD Total clinical time spent by myself addressing the patient's medical issues, reviewing all the data, and collaborating with patient's care team: 78 minutes. Charges/Coding Visit Charges Inpatient E&M: 87365 Init Hosp L3 06/24/252215 <Electronically signed by Bandar Salmeron DO> Cosigner Signature (if applicable): CC: Dr. Bandar Salmeron DO; Dr. Efrain Peters DO~ Signed [facility] Work Phone: 1(160) 953-398809-08-2025 Progress note [facility] Medical Records Department [address] [place] [address] Progress Note - Hospitalist 06/24/252245 MR#: [id number] Acct: [id number] Name: RUSSELL VAUGHN Rep #:[id number] : 1945 79 From: Sophie Russell PCP: Dr. Efrain Peters DO Status:AD M SHARI Location: [facility] [id number] Hospitalist Note Nrsg noted BP at 2200 right arm-72/42, left arm-85/45. Assessed pt, he reports being winded with minimal exertion but cannot discern if it's from palpitations or general weakness. He states that hehas occasional dizziness upon standing. He feels that he is not drinking enough water, states [facility] water has too many chemicals in it, it just tastes bad. I'd prefer bottled water. LSC throughout. No peripheral edema. 0.9%NS 1ltr over 4hrs ordered. He is agreeable to IVF. Will reassess in AM. 06/24/252251 Cosigner Signature (if applicable): CC: ~ Signed [facility]09-08-2025 History and physical note [facility] Medical Records Department [address] [place] [address] H&P Exam - Hospitalist 06/24/25 1523 MR#: [id number] Acct: [id number] Name: RUSSELL VAUGHN Rep #:[id number] : 1945 79 From: Bandar vizcaino DO PCP: Dr. Efrain Peters, DO Status:AD M [facility] Location: [facility] [id number] HPI - General General Date of Admission: 06/24/25 Date of Service: 06/24/25 Chief Complaint: Weakness and hypotension HPI Narrative RUSSELL VAUGHN, is a 79 M who presented today from the oncology office for weakness and hypotension. 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 Dumont. I reviewed Dr. Dumont's office note from 05/27 in [facility]. Patient initiallydeveloped symptoms of pain, pale stool and jaundice back in August 2024. 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 He was initiated on durvalumab/gemcitabine/cisplatin on January 15. LiverMRI around that time showed locally advanced disease. He more recently had an ERCP done on 05/16 for stent change (had stent placed prior to attempted lap naresh), but the stent had migrated and could not be reached. Dr. Dumont noted that the surgical team had discussed eventual cholecystectomy with the patient, but he suspected this would not be able to be done due to the patient'slocally advanced cancer. Plan was to continue chemotherapy per NCCN guidelines. Patient presented to the office today and was noted to be hypotensive to the 70s systolic and weaker than previous, so he was sent to the ED for further evaluation. In the ED, patient hypertensive to the 80s over 50s but otherwise was in normal sinus rhythm and stable on room air at rest. He was given IV fluids with improvement in his blood pressure to the 110s systolic. Labs notable for creatinine 1.14 (baseline 0.6-0.7), magnesium 1.0, hemoglobin 8.6 (recent baseline around 9). Chest x-ray was unremarkable. ED physician discussed with the patient who wished to stay overnight for further IV fluid and electrolyte resuscitation as needed. Hospitalist was then contacted for admission. I saw the patient at bedside in the ED. Patient was fatigued and fairly weak appearing but otherwise was sitting back comfortably in bed and answering questions appropriately. Notes that he has lost about 40 pounds over the past 2months. However, he attributes this to poor appetite due to change in taste from his chemotherapy regimen. He notably asked me about the possibility of cholecystectomy and stated that Dr. Dumont had told him that his cancer was improving significantly on his most recent imaging testing. Noted that his muscles in his legs feel weak and he has not been able to do much at home recently. He otherwise denies any acute pain or discomfort. Will be admitted for further management. [facility] Medical History Carcinomatosis Wears glasses Non-smoker Hypertension Right inguinal hernia Hypothyroid Nocturia Internal hemorrhoids GERD (gastroesophageal reflux disease) Erectile dysfunction Diverticulosis Home Medications ?Medication ?Instructions ?Recorded ?Last Taken ?Type acetaminophen 325 mg tablet 650 mg (2 x 325 mg) PO Q6H PRN PRN 11/20/24 Unknown Rx Pain 1-10 Or Fever #0 tabs levothyroxine 125 mcg tablet 125 mcg PO DAILY disorder of 06/24/25 06/24/25 History (Levoxyl) thyroid gland Allergy/AdvReac Type Severity Reaction Status Date / Time No Known Allergies Allergy Verified 04/24/25 11:12 Family History Mother Asthma Father Heart disease High cholesterol Surgical History History of ERCP S/P right inguinal hernia repair History of hydrocelectomy Hx of colonoscopy Social History Smoking Status: Never smoker second hand exposure: No alcohol intake: never substance use type: does not use caffeine: Yes what type of physical activity do you participate in: walking, aerobics and weight training frequency: daily ROS Constitutional Constitutional: Reports fatigue and weakness; Denies chills or fever(s) Eyes Eyes: Denies change in vision Cardiovascular Cardiovascular: Denies chest pain Respiratory/Chest Respiratory/Chest: Denies shortness of breath at rest Gastrointestinal Gastrointestinal: Denies abdominal pain, constipation, diarrhea, nausea or vomiting Musculoskeletal Musculoskeletal: Denies arthralgias or myalgias Neurologic Neurologic: Denies dizziness, focal weakness or headache(s) Vital Signs Vital Signs Vital Signs: 06/24/25 09:37 06/24/25 09:46 06/24/25 09:46 Temperature 98.0 F 98.0 F Temperature Source Oral Oral Pulse Rate 88 90 Pulse Rate [Lying] Pulse Rate [Standing (for 1 minute prior to obtaining)] Respiratory Rate 16 18 Respiratory Effort Normal Respiratory Pattern Normal Blood Pressure 82/56 L 88/58 L Blood Pressure [Lying] Blood Pressure [Sitting (for 1 minute prior to obtaining)] Blood Pressure [Standing (for 1 minute prior to obtaining)] Blood Pressure Mean 64 68 Blood Pressure Mean [Lying] Blood Pressure Mean [Sitting (for 1 minute prior to obtaining)] Blood Pressure Mean [Standing (for 1 minute prior to obtaining)] Pulse Ox 98 99 Oxygen Delivery Method Room Air Room Air 06/24/25 10:36 06/24/25 10:46 06/24/25 12:00 Temperature 98.1 F 98.4 F Temperature Source Oral Temporal Pulse Rate 78 89 72 Pulse Rate [Lying] Pulse Rate [Standing (for 1 minute prior to obtaining)] Respiratory Rate 16 18 16 Respiratory Effort Respiratory Pattern Blood Pressure 114/78 102/69 142/61 H Blood Pressure [Lying] Blood Pressure [Sitting (for 1 minute prior to obtaining)] Blood Pressure [Standing (for 1 minute prior to obtaining)] Blood Pressure Mean 90 80 88 Blood Pressure Mean [Lying] Blood Pressure Mean [Sitting (for 1 minute prior to obtaining)] Blood Pressure Mean [Standing (for 1 minute prior to obtaining)] Pulse Ox 98 95 97 Oxygen Delivery Method Room Air Room Air Room Air 06/24/25 13:00 06/24/25 14:00 06/24/25 14:15 Temperature Temperature Source Pulse Rate 82 78 Pulse Rate [Lying] 70 Pulse Rate [Standing (for 1 minute prior to obtaining)] 82 Respiratory Rate 18 16 Respiratory Effort Respiratory Pattern Blood Pressure 100/60 111/64 Blood Pressure [Lying] 93/60 Blood Pressure [Sitting (for 1 minute prior to obtaining)] 100/53 L Blood Pressure [Standing (for 1 minute prior to obtaining)] 118/67 Blood Pressure Mean 73 79 Blood Pressure Mean [Lying] 71 Blood Pressure Mean [Sitting (for 1 minute prior to obtaining)] 68 Blood Pressure Mean [Standing (for 1 minute prior to obtaining)] 84 Pulse Ox 94 98 Oxygen Delivery Method Room Air 06/24/25 15:00 Temperature Temperature Source Pulse Rate 75 Pulse Rate [Lying] Pulse Rate [Standing (for 1 minute prior to obtaining)] Respiratory Rate 18 Respiratory Effort Respiratory Pattern Blood Pressure 121/65 H Blood Pressure [Lying] Blood Pressure [Sitting (for 1 minute prior to obtaining)] Blood Pressure [Standing (for 1 minute prior to obtaining)] Blood Pressure Mean 83 Blood Pressure Mean [Lying] Blood Pressure Mean [Sitting (for 1 minute prior to obtaining)] Blood Pressure Mean [Standing (for 1 minute prior to obtaining)] Pulse Ox 95 Oxygen Delivery Method Weight Weight: 67.8 kg Body Mass Index (BMI) 22.7 Physical Exam Const alert, oriented x3, no apparent distress and average body habitus Constitutional Narrative: Elderly male, fatigued and fairly weak appearing, otherwise sitting back fairly comfortably in bed,conversing normally, in no acute distress. General Appearance: cooperative and comfortable HEENT normocephalic, head/scalp atraumatic, hearing grossly normal bilaterally, nasal mucous membranes and turbinates normal and moist oral mucous membranes Eyes PERRL, EOMs intact bilaterally and conjunctivae normal Neck full ROM Chest inspection of chest normal Resp normal respiratory effort, normal air movement, no use of accessory muscles and clear to auscultation bilaterally Cardio regular rate, regular rhythm, no murmurs and peripheral pulses 2+ throughout GI normal to inspection, nondistended, normoactive bowel sounds, soft to palpation,non-tender and non-distended Back/Spine normal ROM Extremity normal to inspection, full ROM and no pedal edema Skin no rashes or lesions noted Psych mental status grossly normal Results Lab / Micro Data 06/24/25 10:45 06/24/25 10:45 Labs: Laboratory Results - last 24 hr 06/24/25 10:45: WBC 5.6, RBC 2.49 L, Hgb 8.6 L, Hct 24.8 L, MCV 99.6 H, MCH 34.5H, MCHC 34.7, RDW Std Deviation 51.7 H, RDW Coeff of Meri 14.3, Plt Count 71 L, MPV 10.2, Immature Gran % (Auto) 1.400 H, Neut % (Auto) 63.0, Lymph % (Auto) 17.1 L, Cobb % (Auto) 16.4 H, Eos % (Auto) 1.6, Baso % (Auto) 0.5, Absolute Neuts (auto) 3.5, Absolute Lymphs (auto) 0.96, Nucleated RBC % 0, Platelet Estimate MODDEC, PT 15.9 H, INR 1.2, APTT 37.3 H, Sodium 133, Potassium 3.9, Chloride 94 L, Carbon Dioxide 23.5, Anion Gap 16 H, BUN 22 H, Creatinine 1.14, Estim Creat Clear Calc 52.04, Est GFR (MDRD) Non-Af 66,BUN/Creatinine Ratio 19.5, Glucose 59 L, Lactic Acid 1.5, Calcium 8.6, Magnesium 1.0 L, Total Biliru bin 0.75, Direct Bilirubin 0.42 H, AST 44 H, ALT 17, Alkaline Phosphatase 220 H, Total Protein 6.4,Albumin 3.3 L, Globulin 3.1, Lipase 16 06/24/25 12:26: Urine Color Yellow, Urine Clarity Clear, Urine pH 6.0, Ur Specific Avenel 1.015, Urine Protein 30 H, Urine Glucose (UA) Normal, Urine Ketones 150 A*, Urine Occult Blood 10 H, Urine Nitrite Negative, Urine BilirubinNegative, Urine Urobilinogen 1 H, Ur Leukocyte Esterase Negative, Urine RBC 0 SEEN, Urine WBC 0 SEEN, Ur Squamous Epith Cells 0 SEEN, Urine Bacteria 0 SEEN, Hyaline Casts 0-5 SEEN, Urine Mucus 0 SEEN Micro: Microbiology 06/24/25 13:23 Stool Stool Occult Blood (LISETTE) - Final Occult Blood Positive Imaging Radiology Impression Chest X-Ray 06/24/25 10:38 IMPRESSION: No acute cardiopulmonary disease. Reading Location: [facility] Assessment & Plan Assessment/Plan (1) Adult failure to thrive: PLAN: Plan Patient is a 79-year-old male who presented to [facility] ED on 06/24/2025 from his oncology office with weakness and hypotension. 1. Adult failure to thrive in setting of cholangiocarcinoma ? Admit under observation status to [facility]. PT/OT/case management consulted. Nutrition consulted. Follows with Dr. Dumont with oncology, see HPI for further details. In short, was diagnosed withcholangiocarcinoma with carcinomatosis in December. Has been on chemotherapy since January. Has now lostabout 40 pounds over the past 2 months. Notes he has not been eating or drinking much at all and has steadily become weaker. Lives at home with his and has had difficulty getting out of his chair this past week. Labs and low blood pressure on admit consistent with dehydration as below. Unfortunatelypatient seems to have poor insight into his condition; believes the cancer is improving and is asking about when his gallbladder can be removed to help take out the cancer. Will likely be okay for home with home health care on dischargebut given his worsening functional status, suspect he may not be an ideal chemotherapy candidate in the near future and [facility] 2. Mild TANYA with dehydration and hypotension, hypomagnesemia ? Creatinine 1.14 on admit, baseline around 0.6-0.7. Hypotensive to the 80s systolic on admit. Magnesium 1.0. Hypotension improved with IV fluid resuscitation. IV magnesium supplementation given in the ED. Follow-up a.m. labs and monitor urine output. 3. Hypothyroidism ? Continue home Synthroid. 4. Anemia and thrombocytopenia ? Hemoglobin 8.6, platelet count 71 on admit. Reviewed CBC results in [facility] the last few months and hemoglobin has been around 9 and platelet count around 70-90. Oncology attributed this to his chemotherapy. Iron studies done in the ED with ferritin 2355, consistent with anemia of chronic disease. No inpatient needs, continue close outpatient follow-up. DVT prophylaxis: Lovenox CODE STATUS: Full code, verified Expected disposition: TBD Total clinical time spent by myself addressing the patient's medical issues, reviewing all the data, and collaborating with patient's care team: 78 minutes. Charges/Coding Visit Charges Inpatient E&M: 78985 Init Hosp L3 06/24/25 2216 Cosigner Signature (if applicable): CC: Dr. Bandar Salmeron DO; Dr. Efrain Petres DO~ Signed [facility]09-08-2025 Discharge summary Author Molly Jazmínradha [facility] Note Date/Time June 24, 2025 4:22pm [facility] Medical Records Department [address] [place] [address] Emergency Department Summary 06/24/25 MR#: [id number] Acct: [id number] Name: RUSSELL VAUGHN Rep #:[id number] : 1945 79 From: Molly Og PCP: Dr. Efrain Peters DO Status:RE G ER Location: ED HPI History of Present Illness Chief Complaint: General Illness Informant: patient Narrative Narrative: Patient is a 79-year-old male with history of carcinomatosis and cholangiocarcinoma currently undergoing chemotherapy and follows with [facility] oncology, Dr. Savage. He is presenting from oncology office today for hypotension and weakness. Patient states he has been worsening over the past 7 to 10 days. Notes he has been not able to take much in because he does not have any appetite and food does not taste good. States that he is starting to feel more weak to walk and shaky. He notes that this week he did have a fallbut did not injure himself. He was able to reach for the counter to slow his descent. He has been feeling lightheaded. He states he is having bowel movements every 2 days which is typical for him. He states they have been thinner than normal. Denies any blood in stool. Denies any urinary symptoms. Denies any fever or chills. Notes he did have a blood transfusion 4 to 5 weeks ago and had 1 unit of packed red blood cells. Lives at home with his . States he has been feeling more fuzzy and low bit confused lately. No other complaints or concerns reported at this time. [facility] Medical History Carcinomatosis Wears glasses Non-smoker Hypertension Right inguinal hernia Hypothyroid Nocturia Internal hemorrhoids GERD (gastroesophageal reflux disease) Erectile dysfunction Diverticulosis Home Medications ?Medication ?Instructions ?Recorded ?Last Taken ?Type acetaminophen 325 mg tablet 650 mg (2 x 325 mg) PO Q6H PRN PRN 11/20/24 Unknown Rx Pain 1-10 Or Fever #0 tabs levothyroxine 125 mcg tablet 125 mcg PO DAILY disorder of 06/24/25 06/24/25 History (Levoxyl) thyroid gland Allergy/AdvReac Type Severity Reaction Status Date / Time No Known Allergies Allergy Verified 04/24/25 11:12 Family History Mother Asthma Father Heart disease High cholesterol Surgical History History of ERCP S/P right inguinal hernia repair History of hydrocelectomy Hx of colonoscopy Social History Smoking Status: Never smoker second hand exposure: No alcohol intake: never substance use type: does not use caffeine: Yes what type of physical activity do you participate in: walking, aerobics and weight training frequency: daily ROS ROS ED Constitutional Constitutional ED: Reports weight loss and other Details: Shaky ; Denies chills or fever(s) Eyes Eyes: Denies change in vision Cardiovascular Cardiovascular: Denies chest pain Respiratory/Chest Respiratory/Chest: Denies cough Gastrointestinal Gastrointestinal: Reports abdominal pain, nausea and other Details: Reports ongoing right upper quadrant abdominal pain since his cancer diagnosis ; Denies constipation, diarrhea or melena Genitourinary Genitourinary ED: Denies dysuria or urinary frequency Musculoskeletal Musculoskeletal: Denies arthralgias or myalgias Integumentary Denies rash Neurologic Neurologic: Reports weakness; Denies paresthesias Hematologic/Lymphatic Hematologic/Lymphatic: Denies easy bleeding or easy bruising EXAM Physical Exam Const Vital Signs: 06/24/25 09:37 06/24/25 09:46 06/24/25 09:46 Temperature 98.0 F 98.0 F Temperature Source Oral Oral Pulse Rate 88 90 Pulse Rate [Lying] Pulse Rate [Standing (for 1 minute prior to obtaining)] Respiratory Rate 16 18 Respiratory Effort Normal Respiratory Pattern Normal Blood Pressure 82/56 L 88/58 L Blood Pressure [Lying] Blood Pressure [Sitting (for 1 minute prior to obtaining)] Blood Pressure [Standing (for 1 minute prior to obtaining)] Blood Pressure Mean 64 68 Blood Pressure Mean [Lying] Blood Pressure Mean [Sitting (for 1 minute prior to obtaining)] Blood Pressure Mean [Standing (for 1 minute prior to obtaining)] Pulse Ox 98 99 Oxygen Delivery Method Room Air Room Air 06/24/25 10:36 06/24/25 10:46 06/24/25 12:00 Temperature 98.1 F 98.4 F Temperature Source Oral Temporal Pulse Rate 78 89 72 Pulse Rate [Lying] Pulse Rate [Standing (for 1 minute prior to obtaining)] Respiratory Rate 16 18 16 Respiratory Effort Respiratory Pattern Blood Pressure 114/78 102/69 142/61 H Blood Pressure [Lying] Blood Pressure [Sitting (for 1 minute prior to obtaining)] Blood Pressure [Standing (for 1 minute prior to obtaining)] Blood Pressure Mean 90 80 88 Blood Pressure Mean [Lying] Blood Pressure Mean [Sitting (for 1 minute prior to obtaining)] Blood Pressure Mean [Standing (for 1 minute prior to obtaining)] Pulse Ox 98 95 97 Oxygen Delivery Method Room Air Room Air Room Air 06/24/25 13:00 06/24/25 14:00 06/24/25 14:15 Temperature Temperature Source Pulse Rate 82 78 Pulse Rate [Lying] 70 Pulse Rate [Standing (for 1 minute prior to obtaining)] 82 Respiratory Rate 18 16 Respiratory Effort Respiratory Pattern Blood Pressure 100/60 111/64 Blood Pressure [Lying] 93/60 Blood Pressure [Sitting (for 1 minute prior to obtaining)] 100/53 L Blood Pressure [Standing (for 1 minute prior to obtaining)] 118/67 Blood Pressure Mean 73 79 Blood Pressure Mean [Lying] 71 Blood Pressure Mean [Sitting (for 1 minute prior to obtaining)] 68 Blood Pressure Mean [Standing (for 1 minute prior to obtaining)] 84 Pulse Ox 94 98 Oxygen Delivery Method Room Air 06/24/25 15:00 Temperature Temperature Source Pulse Rate 75 Pulse Rate [Lying] Pulse Rate [Standing (for 1 minute prior to obtaining)] Respiratory Rate 18 Respiratory Effort Respiratory Pattern Blood Pressure 121/65 H Blood Pressure [Lying] Blood Pressure [Sitting (for 1 minute prior to obtaining)] Blood Pressure [Standing (for 1 minute prior to obtaining)] Blood Pressure Mean 83 Blood Pressure Mean [Lying] Blood Pressure Mean [Sitting (for 1 minute prior to obtaining)] Blood Pressure Mean [Standing (for 1 minute prior to obtaining)] Pulse Ox 95 Oxygen Delivery Method Positive well developed Constitutional Narrative: Chronically ill-appearing General Appearance ED: well developed and NAD; Negative for pallor HEENT Reports dry mucous membranes Negative for trauma Mouth ED: Yes dry mucous membranes Mouth: dry mucous membranes Eyes PERRL and EOMs intact bilaterally General Eye ED: Negative for scleral icterus Neck supple and no JVD Chest Wall inspection of chest normal and palpation of chest normal Resp normal respiratory effort and clear to auscultation bilaterally Cardio regular rate and regular rhythm Cardio Narrative: Diastolic murmur present, appreciated over the left upper sternal border GI normal to inspection, nondistended, normoactive bowel sounds GI Narrative: Chaperoned rectal exam?no hemorrhoids appreciated. Brown stool. It is fecal occult positive. Palpation: soft and tender RUQ; Negative for mass or rebound tenderness present Back/Spine no CVA tenderness Extremity normal to inspection Neuro oriented x3 Sensorium / Orientation: alert Motor Exam: general weakness Psych mental status grossly normal Skin no rashes or lesions noted and no wounds General Skin Exam: Negative for jaundice or pallor MDM MDM MDM Narrative Medical decision making narrative: Patient stated for hypotension and generalized weakness. He appears nontoxic but chronically ill and weak appearing. He initially is hypotensive upon arrival however is fluid responsive in the emergency room. Workup looking for cause of hypotension including hypovolemia, poor p.o. intake, electrolyte derangement, TANYA, symptomatic anemia and infection is obtained.No obvious signs of hemorrhage on physical exam or HPI. Patient does have a hemoglobin that is low at 8.6. Hemoglobin on 06/04/2025 was 9.3 so patient is near his baseline. Patient has very low magnesium of 1.0. Start on magnesium replacement in the emergency room. He has a normal creatinine however it is above his baseline, and elevated anion gap of 16 and an elevated BUN of 22. Chloride is also low at 94. Lactate is normal at 1.5. He has stable transaminitis with AST of 44 and alkaline phosphatase is 220 consistent with his known history of cholangiocarcinoma. Patient does have elevated ketones in his urine consistent with dehydration. There is no obvious source of infection. I spoke with the patient's oncologist who states he really wanted to make sure the patient did not have an underlying infection causing his hypotension or other more severe process. Spoke with patient and given his weakness even though he is feeling improved with IV fluids he would feel more comfortable staying in the hospital. Will admit for observation and further hydration. Patient agreeable with plan of care. Patient blood pressure remained stable and I think stable for MedSur at this time. History & Record Review Additional record(s) reviewed:: Prior outpatient record and Prior labs (CBC) Lab Data Attestation: I reviewed the patient's lab results. Labs: Laboratory Results - last 24 hr 06/24/25 06/24/25 10:45 12:26 WBC 5.6 RBC 2.49 L Hgb 8.6 L Hct 24.8 L MCV 99.6 H MCH 34.5 H MCHC 34.7 RDW Std Deviation 51.7 H RDW Coeff of Meri 14.3 Plt Count 71 L MPV 10.2 Immature Gran % (Auto) 1.400 H Neut % (Auto) 63.0 Lymph % (Auto) 17.1 L Cobb % (Auto) 16.4 H Eos % (Auto) 1.6 Baso % (Auto) 0.5 Absolute Neuts (auto) 3.5 Absolute Lymphs (auto) 0.96 Nucleated RBC % 0 Platelet Estimate MOD DEC PT 15.9 H INR 1.2 APTT 37.3 H Sodium 133 Potassium 3.9 Chloride 94 L Carbon Dioxide 23.5 Anion Gap 16 H BUN 22 H Creatinine 1.14 Estim Creat Clear Calc 52.04 Est GFR (MDRD) Non-Af 66 BUN/Creatinine Ratio 19.5 Glucose 59 L Lactic Acid 1.5 Calcium 8.6 Magnesium 1.0 L Total Bilirubin 0.75 Direct Bilirubin 0.42 H AST 44 H ALT 17 Alkaline Phosphatase 220 H Total Protein 6.4 Albumin 3.3 L Globulin 3.1 Lipase 16 Urine Color Yellow Urine Clarity Clear Urine pH 6.0 Ur Specific Avenel 1.015 Urine Protein 30 H Urine Glucose (UA) Normal Urine Ketones 150 A* Urine Occult Blood 10 H Urine Nitrite Negative Urine Bilirubin Negative Urine Urobilinogen 1 H Ur Leukocyte Esterase Negative Urine RBC 0 SEEN Urine WBC 0 SEEN Ur Squamous Epith Cells 0 SEEN Urine Bacteria 0 SEEN Hyaline Casts 0-5 SEEN Urine Mucus 0 SEEN Radiography Chest X-Ray - ED: 1 View, Read by ED Physician, Read by Radiologist and No AcuteDisease Diagnostic Testing: Clinical Impression(s) from Imaging Studies Chest X-Ray 06/24/25 10:38 IMPRESSION: No acute cardiopulmonary disease. Reading Location: [facility] Rhythm Strip Rhythm Strip: Sinus Rhythm Rate: 84 Ectopy: None EKG Initial EKG: Attestation: I personally reviewed and interpreted this EKG as follows: Interpretation: Sinus Rhythm Comments: Normal sinus rhythm at a rate of 84 bpm Normal axis Normal intervals Normal ST segments Compared to prior EKG , no acute changes Management Discussion w/another healthcare provider: Hospitalist and [employer] Discharge Plan Triage Chief Complaint: General Illness ED Provider: Molly Lizarraga Dx/Rx/DC Orders Clinical Impression: Hypovolemia, Acute hypotension, Near syncope, Hypomagnesemia, Hypochloremia, Anorexia, Cholangiocarcinoma, Anemia, Occult blood positive stool Prescriptions: No Action levothyroxine [Levoxyl] 125 mcg tablet 125 mcg PO DAILY acetaminophen 325 mg Tablet 650 mg PO Q6H PRN PRN (Reason: Pain 1-10 Or Fever) Qty: 0 0RF Primary Care Provider: Efrain Peters Referrals: Efrain Peters DO [Primary Care Provider] - Print Language: Cypriot Disposition Disposition: [facility] What to do if you have Problems For any increased pain, shortness of breath, bleeding, nausea or vomiting, chestpain, or any unexpected problems, contact your Primary Care Provider. Call [facility] ([phone]) or report to the closest Emergency Room. Call 911 if necessary. 06/24/25 1622 <Electronically signed by Molly Lizarraga DO> Cosigner Signature (if applicable): CC: Dr. Efrain Peters DO ~ Signed [facility] Work Phone: 1(319) 923-919209-08-2025 Evaluation note* Diagnosis Onset Date Resolution Status Admit Date Adult failure to thrive acute [facility] 2024 3:23pm [facility] Work Phone: 1(349) 657-281409-08-2025 Discharge summary [facility] Medical Records Department [address] [place] [id number] Emergency Department Summary 06/24/25 MR#: [id number] Acct: [id number] Name: RUSSELL VAUGHN Rep #:[id number] : 1945 79 From: Molly Og PCP: Dr. Efrain Peters DO Status:RE G ER Location: ED HPI History of Present Illness Chief Complaint: General Illness Informant: patient Narrative Narrative: Patient is a 79-year-old male with history of carcinomatosis and cholangiocarcinoma currently undergoing chemotherapy and follows with [facility] oncology, Dr. Savage. He is presenting fromoncology office today for hypotension and weakness. Patient states he has been worsening over the past 7 to 10 days. Notes he has been not able to take much in because he does not have any appetite and food does not taste good. States that he is starting to feel more weak to walk and shaky. He notes that this week he did have a fallbut did not injure himself. He was able to reach for the counter to slow his descent. He has been feeling lightheaded. He states he is having bowel movements every 2days which is typical for him. He states they have been thinner than normal. Denies any blood in stool. Denies any urinary symptoms. Denies any fever or chills. Notes he did have a blood transfusion 4 to 5 weeks ago and had 1 unit of packed red blood cells. Lives at home with his . States he has been feeling more fuzzy and low bit confused lately. No other complaints or concerns reported at this time. [facility] Medical History Carcinomatosis Wears glasses Non-smoker Hypertension Right inguinal hernia Hypothyroid Nocturia Internal hemorrhoids GERD (gastroesophageal reflux disease) Erectile dysfunction Diverticulosis Home Medications ?Medication ?Instructions ?Recorded ?Last Taken ?Type acetaminophen 325 mg tablet 650 mg (2 x 325 mg) PO Q6H PRN PRN 11/20/24 Unknown Rx Pain 1-10 Or Fever #0 tabs levothyroxine 125 mcg tablet 125 mcg PO DAILY disorder of 06/24/25 06/24/25 History (Levoxyl) thyroid gland Allergy/AdvReac Type Severity Reaction Status Date / Time No Known Allergies Allergy Verified 04/24/25 11:12 Family History Mother Asthma Father Heart disease High cholesterol Surgical History History of ERCP S/P right inguinal hernia repair History of hydrocelectomy Hx of colonoscopy Social History Smoking Status: Never smoker second hand exposure: No alcohol intake: never substance use type: does not use caffeine: Yes what type of physical activity do you participate in: walking, aerobics and weight training frequency: daily ROS ROS ED Constitutional Constitutional ED: Reports weight loss and other Details: Shaky ; Denies chills or fever(s) Eyes Eyes: Denies change in vision Cardiovascular Cardiovascular: Denies chest pain Respiratory/Chest Respiratory/Chest: Denies cough Gastrointestinal Gastrointestinal: Reports abdominal pain, nausea and other Details: Reports ongoing right upper quadrant abdominal pain since his cancer diagnosis ; Denies constipation, diarrhea or melena Genitourinary Genitourinary ED: Denies dysuria or urinary frequency Musculoskeletal Musculoskeletal: Denies arthralgias or myalgias Integumentary Denies rash Neurologic Neurologic: Reports weakness; Denies paresthesias Hematologic/Lymphatic Hematologic/Lymphatic: Denies easy bleeding or easy bruising EXAM Physical Exam Const Vital Signs: 06/24/25 09:37 06/24/25 09:46 06/24/25 09:46 Temperature 98.0 F 98.0 F Temperature Source Oral Oral Pulse Rate 88 90 Pulse Rate [Lying] Pulse Rate [Standing (for 1 minute prior to obtaining)] Respiratory Rate 16 18 Respiratory Effort Normal Respiratory Pattern Normal Blood Pressure 82/56 L 88/58 L Blood Pressure [Lying] Blood Pressure [Sitting (for 1 minute prior to obtaining)] Blood Pressure [Standing (for 1 minute prior to obtaining)] Blood Pressure Mean 64 68 Blood Pressure Mean [Lying] Blood Pressure Mean [Sitting (for 1 minute prior to obtaining)] Blood Pressure Mean [Standing (for 1 minute prior to obtaining)] Pulse Ox 98 99 Oxygen Delivery Method Room Air Room Air 06/24/25 10:36 06/24/25 10:46 06/24/25 12:00 Temperature 98.1 F 98.4 F Temperature Source Oral Temporal Pulse Rate 78 89 72 Pulse Rate [Lying] Pulse Rate [Standing (for 1 minute prior to obtaining)] Respiratory Rate 16 18 16 Respiratory Effort Respiratory Pattern Blood Pressure 114/78 102/69 142/61 H Blood Pressure [Lying] Blood Pressure [Sitting (for 1 minute prior to obtaining)] Blood Pressure [Standing (for 1 minute prior to obtaining)] Blood Pressure Mean 90 80 88 Blood Pressure Mean [Lying] Blood Pressure Mean [Sitting (for 1 minute prior to obtaining)] Blood Pressure Mean [Standing (for 1 minute prior to obtaining)] Pulse Ox 98 95 97 Oxygen Delivery Method Room Air Room Air Room Air 06/24/25 13:00 06/24/25 14:00 06/24/25 14:15 Temperature Temperature Source Pulse Rate 82 78 Pulse Rate [Lying] 70 Pulse Rate [Standing (for 1 minute prior to obtaining)] 82 Respiratory Rate 18 16 Respiratory Effort Respiratory Pattern Blood Pressure 100/60 111/64 Blood Pressure [Lying] 93/60 Blood Pressure [Sitting (for 1 minute prior to obtaining)] 100/53 L Blood Pressure [Standing (for 1 minute prior to obtaining)] 118/67 Blood Pressure Mean 73 79 Blood Pressure Mean [Lying] 71 Blood Pressure Mean [Sitting (for 1 minute prior to obtaining)] 68 Blood Pressure Mean [Standing (for 1 minute prior to obtaining)] 84 Pulse Ox 94 98 Oxygen Delivery Method Room Air 06/24/25 15:00 Temperature Temperature Source Pulse Rate 75 Pulse Rate [Lying] Pulse Rate [Standing (for 1 minute prior to obtaining)] Respiratory Rate 18 Respiratory Effort Respiratory Pattern Blood Pressure 121/65 H Blood Pressure [Lying] Blood Pressure [Sitting (for 1 minute prior to obtaining)] Blood Pressure [Standing (for 1 minute prior to obtaining)] Blood Pressure Mean 83 Blood Pressure Mean [Lying] Blood Pressure Mean [Sitting (for 1 minute prior to obtaining)] Blood Pressure Mean [Standing (for 1 minute prior to obtaining)] Pulse Ox 95 Oxygen Delivery Method Positive well developed Constitutional Narrative: Chronically ill-appearing General Appearance ED: well developed and NAD; Negative for pallor HEENT Reports dry mucous membranes Negative for trauma Mouth ED: Yes dry mucous membranes Mouth: dry mucous membranes Eyes PERRL and EOMs intact bilaterally General Eye ED: Negative for scleral icterus Neck supple and no JVD Chest Wall inspection of chest normal and palpation of chest normal Resp normal respiratory effort and clear to auscultation bilaterally Cardio regular rate and regular rhythm Cardio Narrative: Diastolic murmur present, appreciated over the left upper sternal border GI normal to inspection, nondistended, normoactive bowel sounds GI Narrative: Chaperoned rectal exam?no hemorrhoids appreciated. Brown stool. It is fecal occult positive. Palpation: soft and tender RUQ; Negative for mass or rebound tenderness present Back/Spine no CVA tenderness Extremity normal to inspection Neuro oriented x3 Sensorium / Orientation: alert Motor Exam: general weakness Psych mental status grossly normal Skin no rashes or lesions noted and no wounds General Skin Exam: Negative for jaundice or pallor MDM MDM MDM Narrative Medical decision making narrative: Patient stated for hypotension and generalized weakness. He appears nontoxic but chronically ill and weak appearing. He initially is hypotensive upon arrival however is fluid responsive in the emergency room. Workup looking for cause of hypotension including hypovolemia, poor p.o. intake, electrolyte derangement, TANYA, symptomatic anemia and infection is obtained.No obvious signs of hemorrhage on physical exam or HPI. Patient does have a hemoglobin that is low at 8.6. Hemoglobin on 06/04/2025 was 9.3 so patient is near his baseline. Patient has very low magnesium of 1.0. Start on magnesium replacement in the emergency room. He has a normal creatinine however it is above his baseline, and elevated anion gap of 16 and an elevated BUN of 22. Chloride is also low at 94. Lactate is normal at 1.5. He has stable transaminitis with AST of 44 and alkaline phosphatase is 220 consistent with his known history of cholangiocarcinoma. Patient does have elevated ketones in his urine consistent with dehydration. There is no obvious source of infection. I spoke with the patient's oncologist who states he really wanted to make sure the patient did not have an underlying infection causing his hypotension or other more severe process. Spoke with patient and given his weakness even though he is feeling improved with IV fluids he would feel more comfortable staying in the hospital. Will admit for observation and further hydration. Patient agreeable with plan of care. Patient blood pressure remained stable and I think stable for MedSurg at this time. History & Record Review Additional record(s) reviewed:: Prior outpatient record and Prior labs (CBC) Lab Data Attestation: I reviewed the patient's lab results. Labs: Laboratory Results - last 24 hr 06/24/25 06/24/25 10:45 12:26 WBC 5.6 RBC 2.49 L Hgb 8.6 L Hct 24.8 L MCV 99.6 H MCH 34.5 H MCHC 34.7 RDW Std Deviation 51.7 H RDW Coeff of Meri 14.3 Plt Count 71 L MPV 10.2 Immature Gran % (Auto) 1.400 H Neut % (Auto) 63.0 Lymph % (Auto) 17.1 L Cobb % (Auto) 16.4 H Eos % (Auto) 1.6 Baso % (Auto) 0.5 Absolute Neuts (auto) 3.5 Absolute Lymphs (auto) 0.96 Nucleated RBC % 0 Platelet Estimate MOD DEC PT 15.9 H INR 1.2 APTT 37.3 H Sodium 133 Potassium 3.9 Chloride 94 L Carbon Dioxide 23.5 Anion Gap 16 H BUN 22 H Creatinine 1.14 Estim Creat Clear Calc 52.04 Est GFR (MDRD) Non-Af 66 BUN/Creatinine Ratio 19.5 Glucose 59 L Lactic Acid 1.5 Calcium 8.6 Magnesium 1.0 L Total Bilirubin 0.75 Direct Bilirubin 0.42 H AST 44 H ALT 17 Alkaline Phosphatase 220 H Total Protein 6.4 Albumin 3.3 L Globulin 3.1 Lipase 16 Urine Color Yellow Urine Clarity Clear Urine pH 6.0 Ur Specific Avenel 1.015 Urine Protein 30 H Urine Glucose (UA) Normal Urine Ketones 150 A* Urine Occult Blood 10 H Urine Nitrite Negative Urine Bilirubin Negative Urine Urobilinogen 1 H Ur Leukocyte Esterase Negative Urine RBC 0 SEEN Urine WBC 0 SEEN Ur Squamous Epith Cells 0 SEEN Urine Bacteria 0 SEEN Hyaline Casts 0-5 SEEN Urine Mucus 0 SEEN Radiography Chest X-Ray - ED: 1 View, Read by ED Physician, Read by Radiologist and No AcuteDisease Diagnostic Testing: Clinical Impression(s) from Imaging Studies Chest X-Ray 06/24/25 10:38 IMPRESSION: No acute cardiopulmonary disease. Reading Location: [facility] Rhythm Strip Rhythm Strip: Sinus Rhythm Rate: 84 Ectopy: None EKG Initial EKG: Attestation: I personally reviewed and interpreted this EKG as follows: Interpretation: Sinus Rhythm Comments: Normal sinus rhythm at a rate of 84 bpm Normal axis Normal intervals Normal ST segments Compared to prior EKG on, no acute changes Management Discussion w/another healthcare provider: Hospitalist and [employer] Discharge Plan Triage Chief Complaint: General Illness ED Provider: Molly Lizarraga Dx/Rx/DC Orders Clinical Impression: Hypovolemia, Acute hypotension, Near syncope, Hypomagnesemia, Hypochloremia, Anorexia, Cholangiocarcinoma, Anemia, Occult blood positive stool Prescriptions: No Action levothyroxine [Levoxyl] 125 mcg tablet 125 mcg PO DAILY acetaminophen 325 mg Tablet 650 mg PO Q6H PRN PRN (Reason: Pain 1-10 Or Fever) Qty: 0 0RF Primary Care Provider: Efrain Peters Referrals: Efrain Peters DO [Primary Care Provider] - Print Language: Cypriot Disposition Disposition: Acute Care Hospital [facility] What to do if you have Problems For any increased pain, shortness of breath, bleeding, nausea or vomiting, chestpain, or any unexpected problems, contact your Primary Care Provider. Call [facility] ([phone]) or report tothe closest Emergency Room. Call 911 if necessary. 06/24/25 1622 Cosigner Signature (if applicable): CC: Dr. Efrain Peters, DO ~ Signed [facility]09-08-2025 Discharge summary Author Molly Lizarraga [facility] Note Date/Time June 24, 2025 4:22pm [facility] Medical Records Department [address] [place] [address] Emergency Department Summary 06/24/25 MR#: [id number] Acct: [id number] Name: RUSSELL VAUGHN Rep #:[id number] : 1945 79 From: Molly Og PCP: Dr. Efrain Peters, Status:RE G ER Location: ED HPI History of Present Illness Chief Complaint: General Illness Informant: patient Narrative Narrative: Patient is a 79-year-old male with history of carcinomatosis and cholangiocarcinoma currently undergoing chemotherapy and follows with [facility] oncology, Dr. Savage. He is presenting from oncology office today for hypotension and weakness. Patient states he has been worsening over the past 7 to 10 days. Notes he has been not able to take much in because he does not have any appetite and food does not taste good. States that he is starting to feel more weak to walk and shaky. He notes that this week he did have a fallbut did not injure himself. He was able to reach for the counter to slow his descent. He has been feeling lightheaded. He states he is having bowel movements every 2 days which is typical for him. He states they have been thinner than normal. Denies any blood in stool. Denies any urinary symptoms. Denies any fever or chills. Notes he did have a blood transfusion 4 to 5 weeks ago and had 1 unit of packed red blood cells. Lives at home with his . States he has been feeling more fuzzy and low bit confused lately. No other complaints or concerns reported at this time. [facility] Medical History Carcinomatosis Wears glasses Non-smoker Hypertension Right inguinal hernia Hypothyroid Nocturia Internal hemorrhoids GERD (gastroesophageal reflux disease) Erectile dysfunction Diverticulosis Home Medications ?Medication ?Instructions ?Recorded ?Last Taken ?Type acetaminophen 325 mg tablet 650 mg (2 x 325 mg) PO Q6H PRN PRN 11/20/24 Unknown Rx Pain 1-10 Or Fever #0 tabs levothyroxine 125 mcg tablet 125 mcg PO DAILY disorder of 06/24/25 06/24/25 History (Levoxyl) thyroid gland Allergy/AdvReac Type Severity Reaction Status Date / Time No Known Allergies Allergy Verified 04/24/25 11:12 Family History Mother Asthma Father Heart disease High cholesterol Surgical History History of ERCP S/P right inguinal hernia repair History of hydrocelectomy Hx of colonoscopy Social History Smoking Status: Never smoker second hand exposure: No alcohol intake: never substance use type: does not use caffeine: Yes what type of physical activity do you participate in: walking, aerobics and weight training frequency: daily ROS ROS ED Constitutional Constitutional ED: Reports weight loss and other Details: Shaky ; Denies chills or fever(s) Eyes Eyes: Denies change in vision Cardiovascular Cardiovascular: Denies chest pain Respiratory/Chest Respiratory/Chest: Denies cough Gastrointestinal Gastrointestinal: Reports abdominal pain, nausea and other Details: Reports ongoing right upper quadrant abdominal pain since his cancer diagnosis ; Denies constipation, diarrhea or melena Genitourinary Genitourinary ED: Denies dysuria or urinary frequency Musculoskeletal Musculoskeletal: Denies arthralgias or myalgias Integumentary Denies rash Neurologic Neurologic: Reports weakness; Denies paresthesias Hematologic/Lymphatic Hematologic/Lymphatic: Denies easy bleeding or easy bruising EXAM Physical Exam Const Vital Signs: 06/24/25 09:37 06/24/25 09:46 06/24/25 09:46 Temperature 98.0 F 98.0 F Temperature Source Oral Oral Pulse Rate 88 90 Pulse Rate [Lying] Pulse Rate [Standing (for 1 minute prior to obtaining)] Respiratory Rate 16 18 Respiratory Effort Normal Respiratory Pattern Normal Blood Pressure 82/56 L 88/58 L Blood Pressure [Lying] Blood Pressure [Sitting (for 1 minute prior to obtaining)] Blood Pressure [Standing (for 1 minute prior to obtaining)] Blood Pressure Mean 64 68 Blood Pressure Mean [Lying] Blood Pressure Mean [Sitting (for 1 minute prior to obtaining)] Blood Pressure Mean [Standing (for 1 minute prior to obtaining)] Pulse Ox 98 99 Oxygen Delivery Method Room Air Room Air 06/24/25 10:36 06/24/25 10:46 06/24/25 12:00 Temperature 98.1 F 98.4 F Temperature Source Oral Temporal Pulse Rate 78 89 72 Pulse Rate [Lying] Pulse Rate [Standing (for 1 minute prior to obtaining)] Respiratory Rate 16 18 16 Respiratory Effort Respiratory Pattern Blood Pressure 114/78 102/69 142/61 H Blood Pressure [Lying] Blood Pressure [Sitting (for 1 minute prior to obtaining)] Blood Pressure [Standing (for 1 minute prior to obtaining)] Blood Pressure Mean 90 80 88 Blood Pressure Mean [Lying] Blood Pressure Mean [Sitting (for 1 minute prior to obtaining)] Blood Pressure Mean [Standing (for 1 minute prior to obtaining)] Pulse Ox 98 95 97 Oxygen Delivery Method Room Air Room Air Room Air 06/24/25 13:00 06/24/25 14:00 06/24/25 14:15 Temperature Temperature Source Pulse Rate 82 78 Pulse Rate [Lying] 70 Pulse Rate [Standing (for 1 minute prior to obtaining)] 82 Respiratory Rate 18 16 Respiratory Effort Respiratory Pattern Blood Pressure 100/60 111/64 Blood Pressure [Lying] 93/60 Blood Pressure [Sitting (for 1 minute prior to obtaining)] 100/53 L Blood Pressure [Standing (for 1 minute prior to obtaining)] 118/67 Blood Pressure Mean 73 79 Blood Pressure Mean [Lying] 71 Blood Pressure Mean [Sitting (for 1 minute prior to obtaining)] 68 Blood Pressure Mean [Standing (for 1 minute prior to obtaining)] 84 Pulse Ox 94 98 Oxygen Delivery Method Room Air 06/24/25 15:00 Temperature Temperature Source Pulse Rate 75 Pulse Rate [Lying] Pulse Rate [Standing (for 1 minute prior to obtaining)] Respiratory Rate 18 Respiratory Effort Respiratory Pattern Blood Pressure 121/65 H Blood Pressure [Lying] Blood Pressure [Sitting (for 1 minute prior to obtaining)] Blood Pressure [Standing (for 1 minute prior to obtaining)] Blood Pressure Mean 83 Blood Pressure Mean [Lying] Blood Pressure Mean [Sitting (for 1 minute prior to obtaining)] Blood Pressure Mean [Standing (for 1 minute prior to obtaining)] Pulse Ox 95 Oxygen Delivery Method Positive well developed Constitutional Narrative: Chronically ill-appearing General Appearance ED: well developed and NAD; Negative for pallor HEENT Reports dry mucous membranes Negative for trauma Mouth ED: Yes dry mucous membranes Mouth: dry mucous membranes Eyes PERRL and EOMs intact bilaterally General Eye ED: Negative for scleral icterus Neck supple and no JVD Chest Wall inspection of chest normal and palpation of chest normal Resp normal respiratory effort and clear to auscultation bilaterally Cardio regular rate and regular rhythm Cardio Narrative: Diastolic murmur present, appreciated over the left upper sternal border GI normal to inspection, nondistended, normoactive bowel sounds GI Narrative: Chaperoned rectal exam?no hemorrhoids appreciated. Brown stool. It is fecal occult positive. Palpation: soft and tender RUQ; Negative for mass or rebound tenderness present Back/Spine no CVA tenderness Extremity normal to inspection Neuro oriented x3 Sensorium / Orientation: alert Motor Exam: general weakness Psych mental status grossly normal Skin no rashes or lesions noted and no wounds General Skin Exam: Negative for jaundice or pallor MDM MDM MDM Narrative Medical decision making narrative: Patient stated for hypotension and generalized weakness. He appears nontoxic but chronically ill and weak appearing. He initially is hypotensive upon arrival however is fluid responsive in the emergency room. Workup looking for cause of hypotension including hypovolemia, poor p.o. intake, electrolyte derangement, TANYA, symptomatic anemia and infection is obtained.No obvious signs of hemorrhage on physical exam or HPI. Patient does have a hemoglobin that is low at 8.6. Hemoglobin on 06/04/2025 was 9.3 so patient is near his baseline. Patient has very low magnesium of 1.0. Start on magnesium replacement in the emergency room. He has a normal creatinine however it is above his baseline, and elevated anion gap of 16 and an elevated BUN of 22. Chloride is also low at 94. Lactate is normal at 1.5. He has stable transaminitis with AST of 44 and alkaline phosphatase is 220 consistent with his known history of cholangiocarcinoma. Patient does have elevated ketones in his urine consistent with dehydration. There is no obvious source of infection. I spoke with the patient's oncologist who states he really wanted to make sure the patient did not have an underlying infection causing his hypotension or other more severe process. Spoke with patient and given his weakness even though he is feeling improved with IV fluids he would feel more comfortable staying in the hospital. Will admit for observation and further hydration. Patient agreeable with plan of care. Patient blood pressure remained stable and I think stable for MedSurg at this time. History & Record Review Additional record(s) reviewed:: Prior outpatient record and Prior labs (CBC) Lab Data Attestation: I reviewed the patient's lab results. Labs: Laboratory Results - last 24 hr 06/24/25 06/24/25 10:45 12:26 WBC 5.6 RBC 2.49 L Hgb 8.6 L Hct 24.8 L MCV 99.6 H MCH 34.5 H MCHC 34.7 RDW Std Deviation 51.7 H RDW Coeff of Meri 14.3 Plt Count 71 L MPV 10.2 Immature Gran % (Auto) 1.400 H Neut % (Auto) 63.0 Lymph % (Auto) 17.1 L Cobb % (Auto) 16.4 H Eos % (Auto) 1.6 Baso % (Auto) 0.5 Absolute Neuts (auto) 3.5 Absolute Lymphs (auto) 0.96 Nucleated RBC % 0 Platelet Estimate MOD DEC PT 15.9 H INR 1.2 APTT 37.3 H Sodium 133 Potassium 3.9 Chloride 94 L Carbon Dioxide 23.5 Anion Gap 16 H BUN 22 H Creatinine 1.14 Estim Creat Clear Calc 52.04 Est GFR (MDRD) Non-Af 66 BUN/Creatinine Ratio 19.5 Glucose 59 L Lactic Acid 1.5 Calcium 8.6 Magnesium 1.0 L Total Bilirubin 0.75 Direct Bilirubin 0.42 H AST 44 H ALT 17 Alkaline Phosphatase 220 H Total Protein 6.4 Albumin 3.3 L Globulin 3.1 Lipase 16 Urine Color Yellow Urine Clarity Clear Urine pH 6.0 Ur Specific Avenel 1.015 Urine Protein 30 H Urine Glucose (UA) Normal Urine Ketones 150 A* Urine Occult Blood 10 H Urine Nitrite Negative Urine Bilirubin Negative Urine Urobilinogen 1 H Ur Leukocyte Esterase Negative Urine RBC 0 SEEN Urine WBC 0 SEEN Ur Squamous Epith Cells 0 SEEN Urine Bacteria 0 SEEN Hyaline Casts 0-5 SEEN Urine Mucus 0 SEEN Radiography Chest X-Ray - ED: 1 View, Read by ED Physician, Read by Radiologist and No AcuteDisease Diagnostic Testing: Clinical Impression(s) from Imaging Studies Chest X-Ray 06/24/25 10:38 IMPRESSION: No acute cardiopulmonary disease. Reading Location: [facility] Rhythm Strip Rhythm Strip: Sinus Rhythm Rate: 84 Ectopy: None EKG Initial EKG: Attestation: I personally reviewed and interpreted this EKG as follows: Interpretation: Sinus Rhythm Comments: Normal sinus rhythm at a rate of 84 bpm Normal axis Normal intervals Normal ST segments Compared to prior EKG on, no acute changes Management Discussion w/another healthcare provider: Hospitalist and [employer] Discharge Plan Triage Chief Complaint: General Illness ED Provider: Molly Lizarraga Dx/Rx/DC Orders Clinical Impression: Hypovolemia, Acute hypotension, Near syncope, Hypomagnesemia, Hypochloremia, Anorexia, Cholangiocarcinoma, Anemia, Occult blood positive stool Prescriptions: No Action levothyroxine [Levoxyl] 125 mcg tablet 125 mcg PO DAILY acetaminophen 325 mg Tablet 650 mg PO Q6H PRN PRN (Reason: Pain 1-10 Or Fever) Qty: 0 0RF Primary Care Provider: Efrain Peters Referrals: Efrain Peters DO [Primary Care Provider] - Print Language: Cypriot Disposition Disposition: Acute Care Hospital [facility] What to do if you have Problems For any increased pain, shortness of breath, bleeding, nausea or vomiting, chestpain, or any unexpected problems, contact your Primary Care Provider. Call [facility] ([phone]) or report to the closest Emergency Room. Call 911 if necessary. 06/24/25 1622 <Electronically signed by Molly Lizarraga DO> Cosigner Signature (if applicable): CC: Dr. Efrain Peters DO ~ Signed [facility] Work Phone: 1(259) 316-516809-08-2025 Radiology Diagnostic study note [facility] Imaging Services [address] [place] [address] Chest 1 View (Portable) MR#: [id number] Acct: [id number] Name: RUSSELL VAUGHN Rep #: [id number] : 1945 M 79 From: James Reyes MD PCP: Dr. Efrain Peters DO Status: RE G ER Study:Chest 1 View (Portable) Date of Exam: 06/24/25 Exam# [id number] Ordering Dr: Libia Lizarraga DO PROCEDURE: CHEST 1 VIEW (PORTABLE) 06/24/2025 REASON FOR EXAM: WEAKNESS TECHNIQUE: Frontal view of the chest. COMPARISON: None FINDINGS: Hardware: None Heart: Heart mediastinum are within normal limits. There is atherosclerotic plaque of the aorta. Lungs: Clear. No focal consolidation. No pneumothorax or effusion. Bones: Degenerative changes of both acromioclavicular joints. Other: Normal soft tissues RAD/Chest 1 View (Portable) IMPRESSION: No acute cardiopulmonary disease. Reading Location: [facility] CC: Dr. Molly Lizarraga DO; Dr. Efrain Peters DO ~ Ship[employer]S Pilot: Signed [facility]08-26-2025 Note[facility]08-26-2025 History of Present illness Narrative* Brittany Meredith RN - 06/11/2025 9:10 AM EDT Patient complaining of itching on R foot and leg that has traveled to his waist area. Patient states it has been happening for about a week and there is no rash with the itching. Patient states that it has been keeping him awake. Notified Cristo Cuevas who was in to see patient and he is going to prescribe Atarax. Informed patient to call if a rash develops in the areas or itching becomes worse.Patient verbalizing understanding. documented in this encounterMer[facility]08-21-2025 Telephone encounter Note * Telephone Encounter - Dione Witt RN - 06/06/2025 4:05 PM EDT EMERGENCY ROOM CALL BACK Today's date: June 06, 2025 Patient identified by name and date of . YES Primary Cancer Diagnosis: Gallbladder Reason for Emergency Room Visit: leg swelling Time of day presented to Emergency Room 1722 If Tue-Tuesday during business hours: Did you contact your Paint Roller Winder/Provider? Yes, told to present to emergency department Patient with any new symptom issues: No Psychosocial Risk Factors: None FOLLOW UP Next [employer] outreach with patient scheduled? as needed Chemotherapy was post-poned to 06/11/25 Discussed Patient states he is aware that the US results were negative for DVT. He states the swelling is better, no pain or new issues. 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 He denies other needs or concerns. Casie aware and keep appointments as scheduled. PATIENT EDUCATION/REINFORCEMENT Patient verbalizes understanding of when to seek Medical Attention? YES Patient verbalizes understanding of after hours and weekend phone number? YES Patient verbalizes understanding of next outreach appointment? YES Dione Witt RN [facility] Work Phone: 1(637) 730-954608-21-2025 Miscellaneous Notes* Telephone Encounter - Dione Witt RN - 06/06/2025 4:05 PM EDT EMERGENCY ROOM CALL BACK Today's date: June 06, 2025 Patient identified by name and date of . YES Primary Cancer Diagnosis: Gallbladder Reason for Emergency Room Visit: leg swelling Time of day presented to Emergency Room 1722 If Tue-Tuesday during business hours: Did you contact your [employer] Roller Winder/Provider? Yes, told to present to emergency department Patient with any new symptom issues: No Psychosocial Risk Factors: None FOLLOW UP Next [employer] outreach with patient scheduled? as needed Chemotherapy was post-poned to 06/11/25 Discussed Patient states he is aware that the US results were negative for DVT. He states the swelling is better, no pain or new issues. 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 He denies other needs or concerns. Casie aware and keep appointments as scheduled. PATIENT EDUCATION/REINFORCEMENT Patient verbalizes understanding of when to seek Medical Attention? YES Patient verbalizes understanding of after hours and weekend phone number? YES Patient verbalizes understanding of next outreach appointment? YES Dione Witt, HIMANSHU documented in this encounterMer[facility]08-19-2025 Telephone encounter Note * Telephone Encounter - Casie Barragan - 06/04/2025 4:14 PM EDT Per PSRs there are no available appts locally for STAT US for several days. In which case would recommend that pt present to ED for evaluation for DVT. Pt acknowledged. Casie Barragan APRN.LANDCARE OFFICER [facility]08-19-2025 Miscellaneous Notes* Telephone Encounter - Casie Barragan - 06/04/2025 4:14 PM EDT Per PSRs there are no available appts locally for STAT US for several days. In which case would recommend that pt present to ED for evaluation for DVT. Pt acknowledged. Casie Barragan APRN.LANDCARE OFFICER * Telephone Encounter - Casie Barragan - 06/04/2025 3:36 PM EDT Oncology patient here for Abd MRI. Asked by RN to assess pts lower extremity edema. R lower extremity with pitting edema +2. Pt states that leg and ankle has been swollen for the last 2 days. Not really improved with rest. No edema in left. No hx of blood clots, no anticoagulation. STAT US DVT R ordered. Casie Barargan APRN.LANDCARE OFFICER documented in this encounterMer[facility]. [facility]08-19-2025 Telephone encounter Note * Telephone Encounter - Casie Barragan - 06/04/2025 3:36 PM EDT Oncology patient here for Abd MRI. Asked by RN to assess pts lower extremity edema. R lower extremity with pitting edema +2. Pt states that leg and ankle has been swollen for the last 2 days. Not really improved with rest. No edema in left. No hx of blood clots, no anticoagulation. STAT US DVT R ordered. Casie Barragan APRN.LANDCARE OFFICER [facility]08-19-2025 History of Present illness Narrative* Tamara Whitman RT(R) - 06/04/2025 2:30 PM EDT Radiology Service Progress Note DATE OF SERVICE: June 04, 2025 TIME: 2:24 PM PATIENT IDENTITY VERIFICATION COMPLETED USING TWO (2) STANDARD IDENTIFIERS: Name and Date of confirmed by patient verbally. FALL SCREENING: Has the patient had 2 falls in the last year or 1 fall with injury or currently using an Ambulatory Assistive Device (Walker, Cane, Wheelchair, Crutches, etc.)? No PATIENT GENDER DATA: Assigned male at PATIENT RELEVANT IMPLANT DATA REVIEWED: Yes PATIENT PRESENTS WITH AN IMPLANTABLE OR ATTACHED CABIN AGENT: No ALLERGIES: Reviewed and unchanged CONTRAST ALLERGY: NO. EXAM: MRI - CONTRAST TYPE: GROUP II PERIPHERAL IV DATA: Ambulatory: A peripheral IV was started in the Left forearm with a Angio cath: 22 gauge. RADIOLOGY DEPARTMENT: MR; Exam(s) Completed: Body: Liver (routine). Aromatherapy Administered: No SIGNATURE: RT Sandro(R) PATIENT NAME: Russell Vaughn DATE: June 04, 2025 TIME: 2:24 PM documented in this encounterMer[facility]. [facility]08-19-2025 NoteSouthern [facility]08-19-2025 Telephone encounter Note* Telephone Encounter - Parisa Jiang - 06/04/2025 11:57 AM EDT Schedule updated [facility] Work Phone: 1(947) 809-140208-19-2025 Miscellaneous Notes* Telephone Encounter - Parisa Jiang - 06/04/2025 11:57 AM EDT Schedule updated * Telephone Encounter - Naty Escamilla - 06/04/2025 9:43 AM EDT Patient treatment delayed today. Rescheduled to 06/11, rest of treatments need rescheduled. Naty Escamilla documented in this encounterMercy Health [facility]. [facility]08-19-2025 Telephone encounter Note * Telephone Encounter - Naty Escamilla - 06/04/2025 9:43 AM EDT Patient treatment delayed today. Rescheduled to 06/11, rest of treatments need rescheduled. Naty Escamilla [facility]08-19-2025 NoteSouthern [facility]08-19-2025 History of Present illness Narrative* Hai Lewis RN - 06/04/2025 9:13 AM EDT Preliminary ANC= 0.88. Dr. Dumont notified. Patient to be delayed one week d/t counts. Discussed with patient and rescheduled. documented in this encounterMercy Health St. [facility]08-12-2025 NoteHNO ID: [id number] Author: LES WINTERS RN Service: ? Author Type: Registered Nurse Type: Progress Notes Filed: 05/28/2025 12:37 Note Text: Pt stated no changes to assessment from OV yesterday. Les Winters RNSouthern [facility] Medical Center08-12-2025 History of Present illness Narrative* Les Winters RN - 05/28/2025 10:06 AM EDT Pt stated no changes to assessment from OV yesterday. Les Winters RN documented in this encounterMercy Health St. [facility]08-11-2025 Note* ACP (Advance Care Planning) - Hai Esparza LISW - 05/27/2025 10:08 AM EDT Goals of Care Date of Discussion: 05/27/2025 DIscussion Participants: Russell Vaughn Clinical: DUSTIN Hannon Patient/Family/Decision Makers: New Advanced Directives received from pt this date and sent to internal scanning. Agents listed: Vicenta Vaughn ([phone]); Sage Vaughn ([phone]); Sincere Carvalho ([phone]) DUSTIN Hannon [facility]08-11-2025 Miscellaneous Notes* ACP (Advance Care Planning) - Hai Esparza LISW - 05/27/2025 10:08 AM EDT Goals of Care Date of Discussion: 05/27/2025 DIscussion Participants: Russell Vaughn Clinical: DUSTIN Hannon Patient/Family/Decision Makers: New Advanced Directives received from pt this date and sent to internal scanning. Agents listed: Vicenta Vaughn ([phone]); Sage Vaughn ([phone]); Sincere Carvalho ([phone]) DUSTIN Hannon documented in this encounterMercy Health St. [facility]08-11-2025 NoteSouthern [facility]08-11-2025 History of Present illness Narrative* Onel Dumont MD - 05/27/2025 10:04 AM EDT (Elements copied from my note dated May 06, 2025, have been reviewed and updated where appropriate, and all reflect current assessment and medical decision making from today's encounter, May 27, 2025) HISTORY OF PRESENT ILLNESS: Russell Vaughn is a 79 year old male August 2024, having pain, stool became pale, began showing jaundice. Saw Dr Myers, via ER. Was in intensive care. Bile duct was blocked, endoscopic removal of stones with stent placement. Back to ER a few days after that saw general surgery replaced a stent. Was then sent to [facility] for ERCP, no evidence cancer on that. December 25, 2024, laparascopic cholecystectomy was planned, but on entry gall bladder was not able trace visualized, white plaque tissue describes surrounding gall bladder and involved omentum, per operative report. 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 Operation was aborted. Referred to oncology for systemic therapy. Commenced durvalumab/gemcitabine/cisplatin 01-15-25. Here for follow up of interim CT 03-12-25. Gall bladder thickening ?carcinoma verus inflammation, ?new liver lesion. Long review of labs, images. CT did not really show disease extent very well. Liver MRI shows locally advanced disease. His surgeon at [facility] mentioned changing the biliary stent when gall bladder comes out. We discussed that it is unlikely his gall bladder will be resectable. Had ERCP 05-16-25 for stent change, per Dr Woods stent has migrated could not be reached. Here for follow up, margoth discussion about situation prognosis, again inquires about cholecystectomy CLINICAL IMPRESSION: Locally advanced, metastatic carcinoma clinically consistent with gall bladder origin. CT scans not clearly defining disease status. MRI shows locally advanced disease. Metal stent needs changed, but surgical team talking about eventual cholecystectomy, which I think is not right. RECOMMENDATION/PLAN: 1. Plan continue durvalumab, cisplatin and gemcitabine per NCCN guidelines. 2. MRI abdomen in May 2025. 3. Will see if Dr Walker can see patient to address cholecystectomy Written and verbal health teaching given to patient, patient verbalizes understanding and agrees with treatment plan. Past Medical History: 12/25/2024: Adenocarcinoma (HCC) Comment: Gallbladder No date: Diverticulosis of colon (without mention of hemorrhage) No date: Erectile dysfunction No date: GERD (gastroesophageal reflux disease) No date: Internal hemorrhoids without mention of complication No date: Nocturia No date: Other and unspecified hyperlipidemia No date: Prediabetes No date: Unspecified essential hypertension No date: Unspecified hypothyroidism PAST SURGICAL HISTORY Procedure Laterality Date COLONOSCOPY FLX DX W/COLLJ SPEC WHEN PFRMD 12/09/1999 FLEXIBLE SIGMOIDOSCOPY COLONOSCOPY FLX DX W/COLLJ SPEC WHEN PFRMD 10/02/2007 COLONOSCOPY SCREENING 12/18/2024 PAST SURGICAL HISTORY OF hydrocele repair PAST SURGICAL HISTORY OF 12/25/2024 Exploratory laparscopy with biopsies REPAIR INGUINAL HERNIA Right 10/22/2019 Dr. Annel Bradshaw, [facility] Review of patient's family history indicates: Problem: Emphysema Relation: Mother Age of Onset: (Not Specified) Problem: other (no siblings) Relation: Mother Age of Onset: (Not Specified) Problem: Diabetes Relation: Father Age of Onset: (Not Specified) Social History Tobacco Use Smoking status: Never Smokeless tobacco: Never Vaping Use Vaping status: Never Used Substance Use Topics Alcohol use: No Drug use: No ALLERGIES: No Known Allergies CURRENT OUTPATIENT MEDICATIONS: Lactobacillus acidophilus (PROBIOTIC ORAL) Take 1 tablet by mouth as needed. prochlorperazine (COMPAZINE) 10 mg tablet Take 1 tablet by mouth every 6 hours as needed. levothyroxine (LEVOXYL) 125 mcg tablet Take 1 tablet by mouth once daily. Take on empty stomach. For thyroid. Egleroriuqowa-Nyncjzxh-Eveyue (CENTRUM SILVER) Tab Take 1 tablet by mouth once daily. cskgoi-ywapcwvm-lpkclcd (ZENPEP) 40,000-126,000- 168,000 unit delayed release capsule Take 2 capsules by mouth three times a day with meals. (Patient not taking: Reported on 04/15/2025) Senna 8.6 mg tab Take 8.6 mg by mouth two times a day. (Patient not taking: Reported on 03/21/2025) hydrocortisone (PROCTOZONE-HC) 2.5 % rectal cream 1 application by RECTAL route as needed. (Patientnot taking: Reported on 12/31/2024) REVIEW OF SYSTEMS: GENERAL: No fever, night sweats, weight loss or malaise. All other reviewed and negative other than HPI. PHYSICAL EXAMINATION: VITAL SIGNS: BP 103/72 Pulse 89 Temp (Src) 98.3 (Temporal) Wt 154 lb (69.9kg) SpO2 99% GENERAL APPEARANCE: Well appearing, in no acute distress, alert and oriented x3, well-hydrated, well nourished. LUNGS: CTA HEART: Reg EXTREMITIES: Bilateral 1-2+ edema I spent a total of 30 minutes on the date of the service which included preparing to see the patient, dvvv-xq-elgj patient care, completing clinical documentation, obtaining and/or reviewing separately obtained history, counseling and educating the patient/family/caregiver, ordering medications, ermelinda ts, or procedures, communicating with other HCPs (not separately reported), independently interpreting results (not separately reported), communicating results to the patient/family/caregiver, and care coordination (not separately reported). Reaching out to Dr Aguilera also. Electronically Signed: Onel Dumont MD May 27, 2025 [address] [facility] [address] [facility] Telephone encounter Note * Telephone Encounter - Parisa Jiang - 05/20/2025 9:28 AM EDT Message relayed to patient [facility] Work Phone: [phone]) 127-731508-04-2025 Miscellaneous Notes* Telephone Encounter - Parisa Jiang - 05/20/2025 9:28 AM EDT Message relayed to patient * Telephone Encounter - Dione Witt RN - 05/20/2025 9:01 AM EDT Reviewed notes. Keep treatments/OV's as scheduled. Candy Witt, HIMANSHU * Telephone Encounter - Naty Escamilla - 05/17/2025 4:33 PM EDT Patient called back to see if this has been answered. Please call patient to advise. Naty Escamilla * Telephone Encounter - Parisa Jiang - 05/17/2025 2:59 PM EDT Patient called stating that a treatment was canceled due to him having surgery. He is asking if wanted him to keep schedule as is or move appointments sooner 1 week. Please advise documented in this encounter[facility] Telephone encounter Note * Telephone Encounter - Dione Witt RN - 05/20/2025 9:01 AM EDT Reviewed notes. Keep treatments/OV's as scheduled. Candy Witt RN [facility] Work Phone: 1(266) 694-532408-01-2025 Telephone encounter Note* Telephone Encounter - Naty Escamilla - 05/17/2025 4:33 PM EDT Patient called back to see if this has been answered. Please call patient to advise. Naty Escamilla [facility]08-01-2025 Telephone encounter Note* Telephone Encounter - Parisa Jiang - 05/17/2025 2:59 PM EDT Patient called stating that a treatment was canceled due to him having surgery. He is asking if wanted him to keep schedule as is or move appointments sooner 1 week. Please advise [facility]07-31-2025 NoteHNO ID: [id number] Author: MARGARITA DANIEL APRN.PASSENGER AGENT Service: Anesthesiology Author Type: Nurse Registered Phlebotomist Part Time Type: Anesthesia Procedure Notes Filed: 05/16/2025 08:33 Note Text: ANESTHESIOLOGY PROCEDURE NOTE Airway General Information Procedure Start Time/Medication Administration: 05/16/2025 8:22 AM Procedure End Time: 05/16/2025 8:24 AM Patient location during procedure: OR Timeout Performed Pre-procedure: timeout performed Consent Obtained: Yes Patient identity confirmed: patient Staffing PASSENGER AGENT: Margarita Daniel APRN.PASSENGER AGENT Performed by: PASSENGER AGENT Indications and Patient Condition Indications for airway management: anesthesia Preoxygenated: yes anesthesia circuit Method: asleep Final Airway Details Final airway type: endotracheal airway Final Endotracheal Airway: ETT Cuffed: yes Successful intubation technique: video laryngoscopy Devices used: Leapset Endotracheal tube insertion site: oral Blade: Pavan Blade size: #4 ETT size (mm): 8.0 Measured from: lips Placement verified by: chest auscultation Cormack-Lehane Classification: grade I - full view of glottis Number of attempts at approach: 1 Airway not difficult SIGNATURE: Margarita Daniel APRN.PASSENGER AGENT PATIENT NAME: Russell Vaughn DATE: May 16, 2025 TIME: 8:32 AM [facility]: [id number] History and physical note* Janna Wall APRN.LANDCARE OFFICER - 05/16/2025 8:00 AM EDT HISTORY AND PHYSICAL EXAMINATION SERVICE DATE: 05/16/2025 SERVICE TIME: 7:17 AM PRIMARY CARE PHYSICIAN: Efrain Peters DO REASON FOR VISIT: Russell Vaughn is a 79 year old male who is scheduled for ERCP at the request of Dr. Debra Woods for routine H&P. The reason for this visit is to perform a comprehensive review of the patient's past medical history, assess their current health status and obtain any additional testing required based on anesthesia guidelines. We will also identify any potential anesthesia problemsor contraindications to the planned procedure. 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 Here for ERCP and stent change. 04/01/25 MRI liver showed Locally advanced gallbladder neoplasm with contiguous invasion of the liver, hepatic flexure of the colon, and probably of the proximal duodenum. Patient is on chemotherapy 3 times a month, last received 2 weeks ago. Patient states it all happen when he had more acid reflux and was told that gallbladder may need out, however could not get scheduled soon enough due to post-pandemic limited schedules. He denies current N/V, diarrhea or constipation. Denies any abdominal pain. Denies any melena, hematochezia, or hematemesis. He states gets BM every 2 days due to not eating much. Patient agreed to planned procedure. METS: Walk a block or two on level ground (2.75 METs) Shortness of Breath with exertion due to chemo. Patient denies any CP/SOB with above activity. PAST MEDICAL HISTORY Diagnosis Date Adenocarcinoma (HCC) 12/25/2024 Gallbladder Diverticulosis of colon (without mention of hemorrhage) Erectile dysfunction GERD (gastroesophageal reflux disease) Internal hemorrhoids without mention of complication Nocturia Other and unspecified hyperlipidemia Prediabetes Unspecified essential hypertension Unspecified hypothyroidism PAST SURGICAL HISTORY Procedure Laterality Date COLONOSCOPY FLX DX W/COLLJ SPEC WHEN PFRMD 12/09/1999 FLEXIBLE SIGMOIDOSCOPY COLONOSCOPY FLX DX W/COLLJ SPEC WHEN PFRMD 10/02/2007 COLONOSCOPY SCREENING 12/18/2024 PAST SURGICAL HISTORY OF hydrocele repair PAST SURGICAL HISTORY OF 12/25/2024 Exploratory laparscopy with biopsies REPAIR INGUINAL HERNIA Right 10/22/2019 Dr. Annel Bradshaw, [facility] FAMILY HISTORY Problem Relation Age of Onset Emphysema Mother other (no siblings) Mother Diabetes Father SOCIAL HISTORY: Social History Tobacco Use Smoking status: Never Smokeless tobacco: Never Vaping Use Vaping status: Never Used Substance Use Topics Alcohol use: No Drug use: No Prior to Admission medications as of 05/16/25 0723 Medication Sig Last Dose Taking levothyroxine (LEVOXYL) 125 mcg tablet Take 1 tablet by mouth once daily. Take on empty stomach. For thyroid. 05/15/2025 Morning Yes vubzev-irpmkxjz-rhgniub (ZENPEP) 40,000-126,000- 168,000 unit delayed release capsule Take 2 capsules by mouth three times a day with meals. Patient not taking: Reported on 04/15/2025 Senna 8.6 mg tab Take 8.6 mg by mouth two times a day. Patient not taking: Reported on 03/21/2025 Lactobacillus acidophilus (PROBIOTIC ORAL) Take 1 tablet by mouth as needed. Unknown prochlorperazine (COMPAZINE) 10 mg tablet Take 1 tablet by mouth every 6 hours as needed. hydrocortisone (PROCTOZONE-HC) 2.5 % rectal cream 1 application by RECTAL route as needed. Patient not taking: Reported on 12/31/2024 Gpyultdrviupq-Ikbhejbx-Zdfbbk (CENTRUM SILVER) Tab Take 1 tablet by mouth once daily. Unknown Medication Comments documented by Efrain Peters DO on 11/07/2020 at 0827. Magnesium supplement ALLERGIES No Known Allergies REVIEW OF SYSTEMS: PAIN ASSESSMENT: Pain Pain Level: 0 Pain Assessment: Assessment Tool: Verbal (Numeric Rating or Visual Analog Scale) General: Denies fever, chills, and unexpected weight change. Neuro: Denies dizziness and headaches. Respiratory: No history of current cough or dyspnea, or pneumonia in the past 6 weeks. No history of respiratory/pulmonary symptoms or problems. No history of current cough or dyspnea, or pneumonia in the past 6 weeks. Cardiovascular: No history of HTN requiring medication, no history of angina, CHF, IL, cardiac surgery or stents. Denies rest pain, gangrene or revascularization/amputation for PVD. No history of cardiovascular symptoms or problems. No history of angina, CHF, IL, cardiac surgery or stents. Denies chest pain or palpations. GI: See HPI. : Denies dysuria. Endocrine: No history of diabetes, + hypothyroid. Hematology: Denies history of bleeding or clotting disorder. No known autoimmune disorders. Psych: Denies anxiety/depression. Musculoskeletal: Denies joint pain and swelling. Skin: Denies open sores and rashes. Objective PHYSICAL EXAM: VITALS: BP 155/82 Pulse 12 Temp 97.9 Resp 12 SpO2 99% O2 Therapy: Room Air General: NAD. Cooperative. Skin: Skin is warm, no rashes, and no open sores. HEENT: Normocephalic. Cardiovascular: Normal S1 & S2. No murmur. Lungs: CTA Bilaterally. No respiratory distress. Abdomen: Soft. Pos BS x4quad Extremities: No edema. Neurological: Alert and oriented to person, place, and time. Pulses: radial pulses +2 Diagnostic tests reviewed for today's visit: Lab Value Units Date High Low HB 8.1 g/dL 05/06/2025 17.0 13.0 HCT 25.2 % 05/06/2025 51.0 39.0 WBC 13.91 k/uL 05/06/2025 11.00 3.70 PLT 198 k/uL 05/06/2025 400 150 NA 138 mmol/L 05/06/2025 144 136 K 4.4 mmol/L 05/06/2025 5.1 3.7 GLUC 102 mg/dL 05/06/2025 99 74 BUN 24 mg/dL 05/06/2025 24 9 CREAT 0.82 mg/dL 05/06/2025 1.22 0.73 PTSEC No results within date range. INR No results within date range. APTT No results within date range. ALT 23 U/L 05/06/2025 54 10 AST 39 U/L 05/06/2025 40 14 TBILI 0.2 mg/dL 05/06/2025 1.3 0.2 TSH 1.500 mIU/L 05/06/2025 4.200 0.270 Lab Value Units Date High Low HCGQT No results within date range. UHCG No results within date range. HCG, BODY* No results within date range. Lab Value Units Date High Low ABORHD No results within date range. ABSCREEN No results within date range. 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 PLAN Planned Procedure: ERCP The Following Tests/Procedures Have Been Initiated: IV start and Maintenance fluid for the procedure. ANESTHESIA FINDINGS: Significant Anesthesia Considerations: None Planned Anesthetic: MAC Instructions Given to Patient: Patient given verbal preop instructions and voices comprehension and compliance. I spent a total of 20 minutes on the date of the service which included preparing to see the patient, [id number] patient care, completing clinical documentation, obtaining and/or reviewing separately obtained history, and performing a medically appropriate examination. SIGNATURE: Janna aWll APRN.CNP PATIENT NAME: Russell Vaughn DATE: May 16, 2025 TIME: 7:17 AM PAGER/CONTACT #: [facility]07-31-[facility] History and physical note* Janna Wall APRN.CNP - 05/16/2025 8:00 AM EDT HISTORY AND PHYSICAL EXAMINATION SERVICE DATE: 05/16/2025 SERVICE TIME: 7:17 AM PRIMARY CARE PHYSICIAN: Efrain Peters DO REASON FOR VISIT: Russell Vaughn is a 79 year old male who is scheduled for ERCP at the request of Dr. Debra Woods for routine H&P. The reason for this visit is to perform a comprehensive review of the patient's past medical history, assess their current health status and obtain any additional testing required based on anesthesia guidelines. We will also identify any potential anesthesia problemsor contraindications to the planned procedure. 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 Here for ERCP and stent change. 04/01/25 MRI liver showed Locally advanced gallbladder neoplasm with contiguous invasion of the liver, hepatic flexure of the colon, and probably of the proximal duodenum. Patient is on chemotherapy 3 times a month, last received 2 weeks ago. Patient states it all happen when he had more acid reflux and was told that gallbladder may need out, however could not get scheduled soon enough due to post-pandemic limited schedules. He denies current N/V, diarrhea or constipation. Denies any abdominal pain. Denies any melena, hematochezia, or hematemesis. He states gets BM every 2 days due to not eating much. Patient agreed to planned procedure. METS: Walk a block or two on level ground (2.75 METs) Shortness of Breath with exertion due to chemo. Patient denies any CP/SOB with above activity. PAST MEDICAL HISTORY Diagnosis Date Adenocarcinoma (HCC) 12/25/2024 Gallbladder Diverticulosis of colon (without mention of hemorrhage) Erectile dysfunction GERD (gastroesophageal reflux disease) Internal hemorrhoids without mention of complication Nocturia Other and unspecified hyperlipidemia Prediabetes Unspecified essential hypertension Unspecified hypothyroidism PAST SURGICAL HISTORY Procedure Laterality Date COLONOSCOPY FLX DX W/COLLJ SPEC WHEN PFRMD 12/09/1999 FLEXIBLE SIGMOIDOSCOPY COLONOSCOPY FLX DX W/COLLJ SPEC WHEN PFRMD 10/02/2007 COLONOSCOPY SCREENING 12/18/2024 PAST SURGICAL HISTORY OF hydrocele repair PAST SURGICAL HISTORY OF 12/25/2024 Exploratory laparscopy with biopsies REPAIR INGUINAL HERNIA Right 10/22/2019 Dr. Annel Bradshaw, [facility] FAMILY HISTORY Problem Relation Age of Onset Emphysema Mother other (no siblings) Mother Diabetes Father SOCIAL HISTORY: Social History Tobacco Use Smoking status: Never Smokeless tobacco: Never Vaping Use Vaping status: Never Used Substance Use Topics Alcohol use: No Drug use: No Prior to Admission medications as of 05/16/25 0723 Medication Sig Last Dose Taking levothyroxine (LEVOXYL) 125 mcg tablet Take 1 tablet by mouth once daily. Take on empty stomach. For thyroid. 05/15/2025 Morning Yes ewlwen-lqhuyzrr-wpkramz (ZENPEP) 40,000-126,000- 168,000 unit delayed release capsule Take 2 capsules by mouth three times a day with meals. Patient not taking: Reported on 04/15/2025 Senna 8.6 mg tab Take 8.6 mg by mouth two times a day. Patient not taking: Reported on 03/21/2025 Lactobacillus acidophilus (PROBIOTIC ORAL) Take 1 tablet by mouth as needed. Unknown prochlorperazine (COMPAZINE) 10 mg tablet Take 1 tablet by mouth every 6 hours as needed. hydrocortisone (PROCTOZONE-HC) 2.5 % rectal cream 1 application by RECTAL route as needed. Patient not taking: Reported on 12/31/2024 Anbpgdmsjsncq-Pajgfbni-Sbtybe (CENTRUM SILVER) Tab Take 1 tablet by mouth once daily. Unknown Medication Comments documented by Efrain Peters DO on 11/07/2020 at 0827. Magnesium supplement ALLERGIES No Known Allergies REVIEW OF SYSTEMS: PAIN ASSESSMENT: Pain Pain Level: 0 Pain Assessment: Assessment Tool: Verbal (Numeric Rating or Visual Analog Scale) General: Denies fever, chills, and unexpected weight change. Neuro: Denies dizziness and headaches. Respiratory: No history of current cough or dyspnea, or pneumonia in the past 6 weeks. No history of respiratory/pulmonary symptoms or problems. No history of current cough or dyspnea, or pneumonia in the past 6 weeks. Cardiovascular: No history of HTN requiring medication, no history of angina, CHF, IL, cardiac surgery or stents. Denies rest pain, gangrene or revascularization/amputation for PVD. No history of cardiovascular symptoms or problems. No history of angina, CHF, IL, cardiac surgery or stents. Denies chest pain or palpations. GI: See HPI. : Denies dysuria. Endocrine: No history of diabetes, + hypothyroid. Hematology: Denies history of bleeding or clotting disorder. No known autoimmune disorders. Psych: Denies anxiety/depression. Musculoskeletal: Denies joint pain and swelling. Skin: Denies open sores and rashes. Objective PHYSICAL EXAM: VITALS: BP 155/82 Pulse 12 Temp 97.9 Resp 12 SpO2 99% O2 Therapy: Room Air General: NAD. Cooperative. Skin: Skin is warm, no rashes, and no open sores. HEENT: Normocephalic. Cardiovascular: Normal S1 & S2. No murmur. Lungs: CTA Bilaterally. No respiratory distress. Abdomen: Soft. Pos BS x4quad Extremities: No edema. Neurological: Alert and oriented to person, place, and time. Pulses: radial pulses +2 Diagnostic tests reviewed for today's visit: Lab Value Units Date High Low HB 8.1 g/dL 05/06/2025 17.0 13.0 HCT 25.2 % 05/06/2025 51.0 39.0 WBC 13.91 k/uL 05/06/2025 11.00 3.70 PLT 198 k/uL 05/06/2025 400 150 NA 138 mmol/L 05/06/2025 144 136 K 4.4 mmol/L 05/06/2025 5.1 3.7 GLUC 102 mg/dL 05/06/2025 99 74 BUN 24 mg/dL 05/06/2025 24 9 CREAT 0.82 mg/dL 05/06/2025 1.22 0.73 PTSEC No results within date range. INR No results within date range. APTT No results within date range. ALT 23 U/L 05/06/2025 54 10 AST 39 U/L 05/06/2025 40 14 TBILI 0.2 mg/dL 05/06/2025 1.3 0.2 TSH 1.500 mIU/L 05/06/2025 4.200 0.270 Lab Value Units Date High Low HCGQT No results within date range. UHCG No results within date range. HCG, BODY* No results within date range. Lab Value Units Date High Low ABORHD No results within date range. ABSCREEN No results within date range. 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 PLAN Planned Procedure: ERCP The Following Tests/Procedures Have Been Initiated: IV start and Maintenance fluid for the procedure. ANESTHESIA FINDINGS: Significant Anesthesia Considerations: None Planned Anesthetic: MAC Instructions Given to Patient: Patient given verbal preop instructions and voices comprehension and compliance. I spent a total of 20 minutes on the date of the service which included preparing to see the patient, [id number] patient care, completing clinical documentation, obtaining and/or reviewing separately obtained history, and performing a medically appropriate examination. SIGNATURE: Janna Wall APRN.CNP PATIENT NAME: Russell Vaughn DATE: May 16, 2025 TIME: 7:17 AM PAGER/CONTACT #: documented in this encounterMer[facility]25 NoteHNO ID: [id number] Author: IZABEL ZAVALA RN Service: ? Author Type: Registered Nurse Type: Nursing Progress Note Filed: 05/16/2025 10:19 Note Text: Other: 1019 Dr. Debra Woods at bedside speaking with patient post procedure.[facility]07-31-2025 Nurse Note* Izabel Zavala RN - 05/16/2025 8:00 AM EDT Other: 1019 Dr. Debra Woods at bedside speaking with patient post procedure. [facility]07-31-2025 Nurse Note* Izabel Zavala RN - 05/16/2025 8:00 AM EDT Other: 1019 Dr. Debra Woods at bedside speaking with patient post procedure. documented in this encounterMer[facility] History of Present illness Narrative* Abramovich, Onel, MD - 05/06/2025 10:29 AM EDT (Elements copied from my note dated April 15, 2025, have been reviewed and updated where appropriate, and all reflect current assessment and medical decision making from today's encounter, May 06, 2025) HISTORY OF PRESENT ILLNESS: Russell Vaughn is a 79 year old male August 2024, having pain, stool became pale, began showing jaundice. Saw Dr Myers, via ER. Was in intensive care. Bile duct was blocked, endoscopic removal of stones with stent placement. Back to ER a few days after that saw general surgery replaced a stent. Was then sent to [facility] for ERCP, no evidence cancer on that. December 25, 2024, laparascopic cholecystectomy was planned, but on entry gall bladder was not able trace visualized, white plaque tissue describes surrounding gall bladder and involved omentum, per operative report. 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 Operation was aborted. Referred to oncology for systemic therapy. Commenced durvalumab/gemcitabine/cisplatin 01-15-25. Here for follow up of interim CT 03-12-25. Gall bladder thickening ?carcinoma verus inflammation, ?new liver lesion. Long review of labs, images. CT did not really show disease extent very well. Liver MRI shows locally advanced disease. His surgeon at [facility] mentioned changing the biliary stent when gall bladder comes out. We discussed that it is unlikely his gall bladder will be resectable. 2 weeks LE edema CLINICAL IMPRESSION: Locally advanced, metastatic carcinoma clinically consistent with gall bladder origin. CT scans not clearly defining disease status. MRI shows locally advanced disease. Metal stent needs changed, but surgical team talking about eventual cholecystectomy, which I think is not right. RECOMMENDATION/PLAN: 1. Plan continue durvalumab, cisplatin and gemcitabine per NCCN guidelines. (Plan hold gemcitabine 05-07 in anticipation of ERCP and stent change). 2. MRI abdomen in May 2025. 3. US LE Written and verbal health teaching given to patient, patient verbalizes understanding and agrees with treatment plan. PAST MEDICAL HISTORY Diagnosis Date Adenocarcinoma (HCC) 12/25/2024 Gallbladder Diverticulosis of colon (without mention of hemorrhage) Erectile dysfunction GERD (gastroesophageal reflux disease) Internal hemorrhoids without mention of complication Nocturia Other and unspecified hyperlipidemia Prediabetes Unspecified essential hypertension Unspecified hypothyroidism PAST SURGICAL HISTORY Procedure Laterality Date COLONOSCOPY FLX DX W/COLLJ SPEC WHEN PFRMD 12/09/1999 FLEXIBLE SIGMOIDOSCOPY COLONOSCOPY FLX DX W/COLLJ SPEC WHEN PFRMD 10/02/2007 COLONOSCOPY SCREENING 12/18/2024 PAST SURGICAL HISTORY OF hydrocele repair PAST SURGICAL HISTORY OF 12/25/2024 Exploratory laparscopy with biopsies REPAIR INGUINAL HERNIA Right 10/22/2019 Dr. Annel Bradshaw, [facility] FAMILY HISTORY Problem Relation Age of Onset Emphysema Mother other (no siblings) Mother Diabetes Father Social History Tobacco Use Smoking status: Never Smokeless tobacco: Never Vaping Use Vaping status: Never Used Substance Use Topics Alcohol use: No Drug use: No ALLERGIES: ALLERGIES No Known Allergies CURRENT OUTPATIENT MEDICATIONS: Lactobacillus acidophilus (PROBIOTIC ORAL) Take 1 tablet by mouth as needed. prochlorperazine (COMPAZINE) 10 mg tablet Take 1 tablet by mouth every 6 hours as needed. levothyroxine (LEVOXYL) 125 mcg tablet Take 1 tablet by mouth once daily. Take on empty stomach. For thyroid. Srodnyjnkapme-Hdkhubrw-Muicdd (CENTRUM SILVER) Tab Take 1 tablet by mouth once daily. tdbapc-bfzsagbz-jcvffib (ZENPEP) 40,000-126,000- 168,000 unit delayed release capsule Take 2 capsules by mouth three times a day with meals. (Patient not taking: Reported on 04/15/2025) Senna 8.6 mg tab Take 8.6 mg by mouth two times a day. (Patient not taking: Reported on 03/21/2025) hydrocortisone (PROCTOZONE-HC) 2.5 % rectal cream 1 application by RECTAL route as needed. (Patientnot taking: Reported on 12/31/2024) REVIEW OF SYSTEMS: GENERAL: No fever, night sweats, weight loss or malaise. All other reviewed and negative other than HPI. PHYSICAL EXAMINATION: VITAL SIGNS: BP 155/80 Pulse 77 Temp (Src) 98.2 (Temporal) Wt 160 lb 8 oz (72.8kg) SpO2 100% GENERAL APPEARANCE: Well appearing, in no acute distress, alert and oriented x3, well-hydrated, well nourished. LUNGS: CTA HEART: Reg EXTREMITIES: Bilateral 1-2+ edema I spent a total of 30 minutes on the date of the service which included preparing to see the patient, lism-vc-hkra patient care, completing clinical documentation, obtaining and/or reviewing separately obtained history, counseling and educating the patient/family/caregiver, ordering medications, ermelinda ts, or procedures, communicating with other HCPs (not separately reported), independently interpreting results (not separately reported), communicating results to the patient/family/caregiver, and care coordination (not separately reported). Reaching out to Dr Aguilera also. Electronically Signed: Onel Dumont MD May 06, 2025 [address]07[facility]25 Telephone encounter Note * Telephone Encounter - Dione Witt RN - 04/24/2025 2:[address] Dumont ok for patient to cancel and skip his D8 treatment on 05/14/25 d/t having an eye procedure on 05/13/25 w/ eye follow up on 05/14/25. Has other appointment that week as well. Appointments cancelled. Candy Witt RN Call to patient, aware of above and thankful that this will work out. Candy Witt RN [facility] Work Phone: [phone]) 865-532607-09-2025 Miscellaneous Notes* Telephone Encounter - Dione Witt RN - 04/24/2025 2:[address] Dumont ok for patient to cancel and skip his D8 treatment on 05/14/25 d/t having an eye procedure on 05/13/25 w/ eye follow up on 05/14/25. Has other appointment that week as well. Appointments cancelled. Candy Witt RN Call to patient, aware of above and thankful that this will work out. Candy Witt RN documented in this encounterMer[facility]07-08-2025 NoteSouthern [facility]07-08-2025 History of Present illness Narrative* Cajulis, Gabe, RN - 04/23/2025 9:28 AM EDT Hgb 7.5. Pt c/o sob and fatigue, also has BLE edema 1+ on left and 2+ on right. No redness, warmth noted. Dr. Dumont notified. 1 unit of PRBC ordered. Pt aware of tomorrow's transfusion at [facility]. documented in this encounterMer[facility]07-08-2025 Telephone encounter Note * Telephone Encounter - Deidra Amor LPN - 04/23/2025 9:02 AM EDT Patient scheduled for 1 unit PRBC 04/24/2025 @ 1100, [facility]. Orders faxed. Patient and lab aware. Deidra Amor LPN [facility]07-08-2025 Miscellaneous Notes* Telephone Encounter - Deidra Amor LPN - 04/23/2025 9:02 AM EDT Patient scheduled for 1 unit PRBC 04/24/2025 @ 1100, [facility]. Orders faxed. Patient and lab aware. Deidra Amor LPN documented in this encounterMer[facility]07-02-2025 Telephone encounter Note * Telephone Encounter - Gail Osman - 04/17/2025 4:24 PM EDT Are you on any blood thinners? no Are you on any diabetic medications? no Do you have any allergies? None Scheduled ERCP w/Stent change for 05/[address] [facility]07-02-2025 Miscellaneous Notes* Telephone Encounter - Gail Osman - 04/17/2025 4:24 PM EDT Are you on any blood thinners? no Are you on any diabetic medications? no Do you have any allergies? None Scheduled ERCP w/Stent change for 05/16 * Telephone Encounter - Gail Osman - 04/17/2025 10:22 AM EDT Called pt to schedule ERCP with stent exchange per Dr Woods and Dr Aguilera and Dr Dumont forcholangiocarcinoma. LM to call me back. documented in this encounterMer[facility]07-02-2025 Telephone encounter Note * Telephone Encounter - Gail Osman - 04/17/2025 10:22 AM EDT Called pt to schedule ERCP with stent exchange per Dr Woods and Dr Aguilera and Dr Dumont forcholangiocarcinoma. LM to call me back. [facility]07-02-2025 NoteHNO ID: [id number] Author: ?, ?, ? Service: ? Author Type: ? Type: Progress Notes Filed: 04/17/2025 10:20 Note Text: [facility]07-02-2025 History of Present illness Narrative* Gail Osman - 04/17/2025 10:19 AM EDT er documented in this encounterMer[facility]. [facility]07-02-2025 Telephone encounter Note * Telephone Encounter - Deidra Amor LPN - 04/17/2025 9:14 AM EDT RECOMMENDATION/PLAN: 1. Plan continue durvalumab, cisplatin and gemcitabine per NCCN guidelines. 2. Will see about getting Dr Aguilera of hepatobiliary surgery on the team to help with stent management, also surgical input [facility]07-02-2025 Miscellaneous Notes* Telephone Encounter - Deidra Amor LPN - 04/17/2025 9:14 AM EDT RECOMMENDATION/PLAN: 1. Plan continue durvalumab, cisplatin and gemcitabine per NCCN guidelines. 2. Will see about getting Dr Aguilera of hepatobiliary surgery on the team to help with stent management, also surgical input * Telephone Encounter - Naty Escamilla - 04/15/2025 4:23 PM EDT Patient checked out without AVS Please advise Naty Escamilla documented in this encounterMer[facility]. [facility]07-01-2025 NoteSouthern [facility]07-01-2025 History of Present illness Narrative* Ijeoma Osman, RN - 04/16/2025 9:13 AM EDT Secure chat with Dr. Dumont prior to treatment to notify of Hg of 7.8. Per Dr. Dumont, willhold off on blood transfusion at this time and he gives okay for today's treatment. Upon assessment, Russell does state he has had some shortness of breath with exertion and upper chest/bronchial tightness over last couple weeks. Dr. Dumont notified of this and suggested 1u PRBC-- Russell voices he would like to wait on transfusion and continue to monitor as he has a this week and last time Hg was 7.8 it came back up without intervention. Education provided on when to call doctor/son RICH and Russell verbalizes understanding. documented in this encounterMer[facility]. [facility]06-30-2025 Telephone encounter Note * Telephone Encounter - Naty Escamilla - 04/15/2025 4:23 PM EDT Patient checked out without AVS Please advise Naty Escamilla [facility]06-30-2025 NoteSouthern [facility]06-30-2025 History of Present illness Narrative* Onel Dumont MD - 04/15/2025 3:34 PM EDT (Elements copied from my note dated December 31, 2024, have been reviewed and updated where appropriate, and all reflect current assessment and medical decision making from today's encounter, April 15, 2025) HISTORY OF PRESENT ILLNESS: Russell Vaughn is a 79 year old male August 2024, having pain, stool became pale, began showing jaundice. Saw Dr Myers, via ER. Was in intensive care. Bile duct was blocked, endoscopic removal of stones with stent placement. Back to ER a few days after that saw general surgery replaced a stent. Was then sent to [facility] for ERCP, no evidence cancer on that. December 25, 2024, laparascopic cholecystectomy was planned, but on entry gall bladder was not able trace visualized, white plaque tissue describes surrounding gall bladder and involved omentum, per operative report. 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 Operation was aborted. Referred to oncology for systemic therapy. Commenced durvalumab/gemcitabine/cisplatin 01-15-25. Here for follow up of interim CT 03-12-25. Gall bladder thickening ?carcinoma verus inflammation, ?new iver lesion. Long review of labs, images. CT did not really show disease extent very well. Liver MRI shows locally advanced disease. His surgeon at [facility] mentioned changing the biliary stent when gall bladder comes out. We discussed that it is unlikely his gall bladder will be resectable. 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 CT scans not clearly defining disease status. MRI shows locally advanced disease. Metal stent needs changed, but surgical team talking about eventual cholecystectomy, which I think is not right. RECOMMENDATION/PLAN: 1. Plan continue durvalumab, cisplatin and gemcitabine per NCCN guidelines. 2. Will see about getting Dr Aguilera of hepatobiliary surgery on the team to help with stent management, also surgical input Written and verbal health teaching given to patient, patient verbalizes understanding and agrees with treatment plan. PAST MEDICAL HISTORY Diagnosis Date Adenocarcinoma (HCC) 12/25/2024 Gallbladder Diverticulosis of colon (without mention of hemorrhage) Erectile dysfunction GERD (gastroesophageal reflux disease) Internal hemorrhoids without mention of complication Nocturia Other and unspecified hyperlipidemia Prediabetes Unspecified essential hypertension Unspecified hypothyroidism PAST SURGICAL HISTORY Procedure Laterality Date COLONOSCOPY FLX DX W/COLLJ SPEC WHEN PFRMD 12/09/1999 FLEXIBLE SIGMOIDOSCOPY COLONOSCOPY FLX DX W/COLLJ SPEC WHEN PFRMD 10/02/2007 COLONOSCOPY SCREENING 12/18/2024 PAST SURGICAL HISTORY OF hydrocele repair PAST SURGICAL HISTORY OF 12/25/2024 Exploratory laparscopy with biopsies REPAIR INGUINAL HERNIA Right 10/22/2019 Dr. Annel Bradshaw, [facility] FAMILY HISTORY Problem Relation Age of Onset Emphysema Mother other (no siblings) Mother Diabetes Father Social History Tobacco Use Smoking status: Never Smokeless tobacco: Never Vaping Use Vaping status: Never Used Substance Use Topics Alcohol use: No Drug use: No ALLERGIES: ALLERGIES No Known Allergies CURRENT OUTPATIENT MEDICATIONS: Lactobacillus acidophilus (PROBIOTIC ORAL) Take 1 tablet by mouth as needed. prochlorperazine (COMPAZINE) 10 mg tablet Take 1 tablet by mouth every 6 hours as needed. levothyroxine (LEVOXYL) 125 mcg tablet Take 1 tablet by mouth once daily. Take on empty stomach. For thyroid. Ajfjzchqlptnz-Ngakerhy-Ixyuqs (CENTRUM SILVER) Tab Take 1 tablet by mouth once daily. lgwors-orcesqif-sepnpvt (ZENPEP) 40,000-126,000- 168,000 unit delayed release capsule Take 2 capsules by mouth three times a day with meals. (Patient not taking: Reported on 04/15/2025) Senna 8.6 mg tab Take 8.6 mg by mouth two times a day. (Patient not taking: Reported on 03/21/2025) hydrocortisone (PROCTOZONE-HC) 2.5 % rectal cream 1 application by RECTAL route as needed. (Patientnot taking: Reported on 12/31/2024) REVIEW OF SYSTEMS: GENERAL: No fever, night sweats, weight loss or malaise. All other reviewed and negative other than HPI. PHYSICAL EXAMINATION: VITAL SIGNS: BP 139/72 Pulse 89 Temp (Src) 98 (Temporal) Wt 157 lb (71.2kg) SpO2 100% GENERAL APPEARANCE: Well appearing, in no acute distress, alert and oriented x3, well-hydrated, well nourished. I spent a total of 30 minutes on the date of the service which included preparing to see the patient, jkku-io-uxgq patient care, completing clinical documentation, obtaining and/or reviewing separately obtained history, counseling and educating the patient/family/caregiver, ordering medications, ermelinda ts, or procedures, communicating with other HCPs (not separately reported), independently interpreting results (not separately reported), communicating results to the patient/family/caregiver, and care coordination (not separately reported). Reaching out to Dr Aguilera also. Electronically Signed: Onel Dumont MD April 15, 2025 documented in [address]Mer[facility]. [facility]06-17-2025 NoteSouthern [facility] Center06-17-2025 History of Present illness Narrative* Urbano Berry, RD - 04/02/2025 10:25 AM EDT Nutritional Therapy Re-Assessment Nutrition Diagnosis: Altered Gastrointestinal Tract Function, related to, cholestasis, as evidencedby oncology diagnosis and treatment. NUTRITION CARE PLAN Nutrition Assessment Summary: pt had to modify fat content of diet to tolerate r/t fat malabsorption. Had been on a very low dose of PERT previously, which he stated helped somewhat - this has since been d/c'd. 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 Nutrition Intervention 02/26/2025: Continue 3 meals and snacks. Use Fairlife milk, whey protein powder, or oral nutrition supplements if needed for additional protein. Start 1 Tbsp MCT oil up to three times daily Start Vitamin D3 supplementation r/t deficiency Trial Pancreatic Enzyme Replacement Therapy - use 4000 units lipase per 1g of fat/day. Nutrition Monitoring & Evaluation: Weight gain PO intake Supplement intake Labs Need for Follow up: 2 weeks Patient presents with cholangiocarcinoma and treated with: 04/02/25 CISplatin IV 25 mg/m2 = 45.5 mg dexAMETHasone sodium phosphate IV 10 mg fosaprepitant IV 150 mg gemcitabine IV 600 mg/m2 = 1,092 mg palonosetron IV 0.25 mg pegfilgrastim SQ 6 mg Latest Reference Range & Units Most Recent ELASTASE INTERPRETATION Normal Severe Exocrine Pancreatic Insufficiency ! 10/09/24 06:45 ELASTASE-1 CONCENTRATION >=200 ug/g 37 (L) 10/09/24 06:45 !: Data is abnormal (L): Data is abnormally low Patient's symptoms are: GI: abdominal pain, bloating, fat malabsorption, and heartburn Oral: dry mouth, taste changes, and fatigue Weight Concerns: weight loss Diet History: Switched to low fat foods r/t fat malabsorption issues Breakfast - two slices of white bread with smooth peanut butter Snack - Lunch - large green salad - sometimes with leftover protein Snack - Dinner - [place]/lean beef/ chicken, vegetable, potato/pasta Snack - Beverages - water Activity: Activities of Daily Living: Active 75% of the day. 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 Discontinued both and edema resolved. States that Zenpep was helping with high fat food digestion. Plan - trial Zenpep again with fat based calculation, Stop use of Muscle milk powder Anthropometrics: Height: Last Ht 02/26/25 : 168 cm (5' 6.14) Current weight: Last Wt 04/02/25 : 71.2 kg (157 lb) There is no height or weight on file to calculate BMI. Resting Metabolic Rate: 1371 Malnutrition Screening Significant unintentional weight loss? Yes NUTRITION FOCUSED PHYSICAL EXAM: Subcutaneous Fat Loss Orbital Mild Triceps Mild Mid-axillary at the iliac crest Unable to determine at this time Muscle Loss Locations: Temporalis Mild Pectoralis Unable to determine at this time Deltoids None Interosseous None Latissimus dorsi, trapezius None Quadriceps Mild Gastrocnemius None Potential micronutrient deficiency revealed in: Skin - pallor Edema: No Ascites: No Assessment of Functional Status: No functional impairment, normal with no limitations Eating less than 75% of usual intake for more than 2 weeks? Yes Potential Signs of Inflammation: hypoalbuminemia and chronic condition In the context of Chronic Illness or Injury based on: Insufficient Energy Intake: Less than 75% energy intake compared to estimated needs for greater than or equal to 1 month Muscle Loss Mild Loss Food Insecurity: No Food Insecurity (02/26/2025) Hunger Vital Sign Worried About Running Out of Food in the Last Year: Never true Ran Out of Food in the Last Year: Never true Education Materials Provided: Cancer and Nutrition Additional Resources READINESS TO LEARN Cognitive ability: Alert and oriented Motivation to learn: Eager Family support: Low - Inconsistent family involvement Instruction provided to: Patient Patient learns best by: Multiple Methods Factors affecting learning: None Physical limitations affecting learning: None Referred/Supervised by: Dr. Hussein YOUNGERT Billing Type: Re-assess 2 units SIGNATURE: Urbano Berry RD PATIENT NAME: Russell Vaughn DATE: February 26, 2025 TIME: 10:04 AM PAGER: documented in this encounterMercy Health St. [facility]06-16-2025 History of Present illness Narrative* Lien Benedict RT(R) - 04/01/2025 8:00 AM EDT Radiology Service Progress Note DATE OF SERVICE: April 01, 2025 TIME: 8:10 AM PATIENT IDENTITY VERIFICATION COMPLETED USING TWO (2) STANDARD IDENTIFIERS: Name and Date of confirmed by patient verbally. FALL SCREENING: Has the patient had 2 falls in the last year or 1 fall with injury or currently using an Ambulatory Assistive Device (Walker, Cane, Wheelchair, Crutches, etc.)? No PATIENT GENDER DATA: Assigned male at PATIENT RELEVANT IMPLANT DATA REVIEWED: Yes PATIENT PRESENTS WITH AN IMPLANTABLE OR ATTACHED CABIN AGENT: No ALLERGIES: Reviewed and unchanged CONTRAST ALLERGY: NO. EXAM: MRI - CONTRAST TYPE: GROUP II PERIPHERAL IV DATA: Ambulatory: A peripheral IV was started in the Right upper extremity with a Angio cath: 22 gauge. RADIOLOGY DEPARTMENT: MR; Exam(s) Completed: Body: Liver (routine). Lavender Administered: No SIGNATURE: RT Carlos(Annel) PATIENT NAME: Russell Vaughn DATE: April 01, 2025 TIME: 8:10 AM documented in this encounterMercy Health St. [facility]06-16-2025 NoteSouthern [facility]06-06-2025 Telephone encounter Note* Telephone Encounter - Parisa Jiang - 03/22/2025 12:07 PM EDT Schedule updated due to delay in treatment. [facility] Work Phone: [phone]) 187-128206-06-2025 Miscellaneous Notes* Telephone Encounter - Parisa Jiang - 03/22/2025 12:07 PM EDT Schedule updated due to delay in treatment. * Telephone Encounter - Naty Escamilla - 03/22/2025 11:40 AM EDT Added notes to schedule MRI when here 03/26 Naty Escamilla * Telephone Encounter - Freda Miller - 03/21/2025 4:52 PM EDT AVS 03/21 Liver mri when feasible. Need to push chemo back to March 26. Freda Miller * Telephone Encounter - Naty Escamilla - 03/14/2025 8:06 AM EDT Lvm with detailed message that his CT results aren't in yet so his appointment has been change to 03/[address] Cristo Escamilla documented in this encounterMercy Health St. [facility]06-06-2025 Telephone encounter Note * Telephone Encounter - Naty Escamilla - 03/22/2025 11:40 AM EDT Added notes to schedule MRI when here 03/26 Naty Escamilla [facility]06-05-2025 Telephone encounter Note* Telephone Encounter - Freda Miller - 03/21/2025 4:52 PM EDT AVS 03/21 Liver mri when feasible. Need to push chemo back to March 26. Freda Miller [facility]06-05-2025 NoteSouthern [facility] Center06-05-2025 History of Present illness Narrative* Onel Dumont MD - 03/21/2025 12:20 PM EDT HISTORY OF PRESENT ILLNESS: Russell Vaughn is a 79 year old male August 2024, having pain, stool became pale, began showing jaundice. Saw Dr Myers, via ER. Was in intensive care. Bile duct was blocked, endoscopic removal of stones with stent placement. Back to ER a few days after that saw general surgery replaced a stent. Was then sent to [facility] for ERCP, no evidence cancer on that. December 25, 2024, laparascopic cholecystectomy was planned, but on entry gall bladder was not able trace visualized, white plaque tissue describes surrounding gall bladder and involved omentum, per operative report. 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 Here for follow up of interim CT 03-12-25. Gall bladder thickening ?carcinoma verus inflammation, ?new iver lesion. Long review of labs, images. 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 CT scans not clearly defining disease status. RECOMMENDATION/PLAN: 1. Plan durvalumab, cisplatin and gemcitabine per NCCN guidelines. 2. Plan MRI liver, recheck CA 19-9 next blood draw (was normal pre op) Written and verbal health teaching given to patient, patient verbalizes understanding and agrees with treatment plan. PAST MEDICAL HISTORY Diagnosis Date Adenocarcinoma (HCC) 12/25/2024 Gallbladder Diverticulosis of colon (without mention of hemorrhage) Erectile dysfunction GERD (gastroesophageal reflux disease) Internal hemorrhoids without mention of complication Nocturia Other and unspecified hyperlipidemia Prediabetes Unspecified essential hypertension Unspecified hypothyroidism PAST SURGICAL HISTORY Procedure Laterality Date COLONOSCOPY FLX DX W/COLLJ SPEC WHEN PFRMD 12/09/1999 FLEXIBLE SIGMOIDOSCOPY COLONOSCOPY FLX DX W/COLLJ SPEC WHEN PFRMD 10/02/2007 COLONOSCOPY SCREENING 12/18/2024 PAST SURGICAL HISTORY OF hydrocele repair PAST SURGICAL HISTORY OF 12/25/2024 Exploratory laparscopy with biopsies REPAIR INGUINAL HERNIA Right 10/22/2019 Dr. Annel Bradshaw, [facility] FAMILY HISTORY Problem Relation Age of Onset Emphysema Mother other (no siblings) Mother Diabetes Father Social History Tobacco Use Smoking status: Never Smokeless tobacco: Never Vaping Use Vaping status: Never Used Substance Use Topics Alcohol use: No Drug use: No ALLERGIES: ALLERGIES No Known Allergies CURRENT OUTPATIENT MEDICATIONS: mkcrio-naoiaxxs-ozjeoyj (ZENPEP) 40,000-126,000- 168,000 unit delayed release capsule Take 2 capsules by mouth three times a day with meals. Lactobacillus acidophilus (PROBIOTIC ORAL) Take 1 tablet by mouth as needed. prochlorperazine (COMPAZINE) 10 mg tablet Take 1 tablet by mouth every 6 hours as needed. levothyroxine (LEVOXYL) 125 mcg tablet Take 1 tablet by mouth once daily. Take on empty stomach. For thyroid. iv contrast (will be provided with radiology test) MRI Liver Inject, intravenously, once for 1 dose. No IV access, insert saline lock prior to the beginning of sedation, infusion, injection of imaging exam. Discontinue saline lock post exam. If Pt. has a central line or IVAD, may access for administration according to line specific nursing protocol. Once exam is complete flush line and de-access according to line specific nursing protocol in the MR contrast administration guidelines link. Senna 8.6 mg tab Take 8.6 mg by mouth two times a day. (Patient not taking: Reported on 03/21/2025) hydrocortisone (PROCTOZONE-HC) 2.5 % rectal cream 1 application by RECTAL route as needed. (Patientnot taking: Reported on 12/31/2024) Bwrkyyulwoqun-Xxntgusr-Onvmsh (CENTRUM SILVER) Tab Take 1 tablet by mouth once daily. (Patient not taking: Reported on 12/31/2024) REVIEW OF SYSTEMS: GENERAL: No fever, night sweats, weight loss or malaise. All other reviewed and negative other than HPI. PHYSICAL EXAMINATION: VITAL SIGNS: BP 143/76 Pulse 89 Temp (Src) 98.3 (Temporal) Wt 157 lb (71.2kg) SpO2 99% GENERAL APPEARANCE: Well appearing, in no acute distress, alert and oriented x3, well-hydrated, well nourished. I spent a total of 45 minutes on the date of the service which included preparing to see the patient, [id number] patient care, completing clinical documentation, obtaining and/or reviewing separately obtained history, counseling and educating the patient/family/caregiver, ordering medications, ermelinda ts, or procedures, communicating with other HCPs (not separately reported), independently interpreting results (not separately reported), communicating results to the patient/family/caregiver, and care coordination (not separately reported). Review of images. Electronically Signed: Onel Dumont MD December 31, 2024 [address]06-03-2025 NoteSouthern [facility] Center06-03-2025 History of Present illness Narrative* Daniella Wood RN - 03/19/2025 8:[address] Meng notified of lab results. Per Dr. Meng On 02/12, ANC was 0.74. It was greater than 2000 when rechecked on 02/14 he was able to receive treatment. So, lets delay today's dose until . Recheck CBC at that time. Pharmacy notified, Pt. Updated on plan of care. Labs scheduled before office visit with Dr. Dumont on 03/21/25. documented in this encounterMercy Health St. [facility]05-29-2025 Telephone encounter Note * Telephone Encounter - Naty Escamilla - 03/14/2025 8:06 AM EDT Lvm with detailed message that his CT results aren't in yet so his appointment has been change to 03/[address] Cristo Escamilla [facility]05-27-2025 History of Present illness Narrative* Reef Annie Luu, RT(R) - 03/12/2025 10:20 AM EDT Radiology Service Progress Note DATE OF SERVICE: March 12, 2025 TIME: 1:55 PM PATIENT IDENTITY VERIFICATION COMPLETED USING TWO (2) STANDARD IDENTIFIERS: Name and Date of confirmed by patient verbally. FALL SCREENING: Has the patient had 2 falls in the last year or 1 fall with injury or currently using an Ambulatory Assistive Device (Walker, Cane, Wheelchair, Crutches, etc.)? No PATIENT GENDER DATA: Assigned male at PATIENT RELEVANT IMPLANT DATA REVIEWED: Yes PATIENT PRESENTS WITH AN IMPLANTABLE OR ATTACHED CABIN AGENT: No ALLERGIES: Reviewed and unchanged CONTRAST ALLERGY: NO. EXAM: CT -CONTRAST INDUCED NEPHROPATHY RISK FACTORS: Patient age > 60 years CREATININE: Creatinine Date Value Ref Range Status 03/05/2025 0.81 0.73 - 1.22 mg/dL Final 02/25/2025 0.83 0.73 - 1.22 mg/dL Final 02/14/2025 0.78 0.73 - 1.22 mg/dL Final Estimated Glomerular Filtration Rate Date Value Ref Range Status 03/05/2025 91 >=60 mL/min/1.73m Final Comment: Estimated Glomerular Filtration Rate (eGFR) is calculated using the 2020 CKD-EPI creatinine equation. This equation utilizes serum creatinine, sex, and age as parameters. The creatinine assay has traceable calibration to isotope dilution- mass spectrometry. Refer to KDIGO guidelines for clinical interpretation. In patients with unstable renal function, e.g. those with acute kidney injury, the eGFRmay not accurately reflect actual GFR. eGFR- Date Value Ref Range Status 11/13/2021 >60 Final P.O.C.T. RESULTS: POC done: Yes, See Lab Tab March 12, 2025 TREATMENT: N/A PERIPHERAL IV DATA: Ambulatory: A peripheral IV was started in the Left antecubital site with a Angio cath: 22 gauge. RADIOLOGY DEPARTMENT: CT; Exam(s) Completed: Chest Abdomen Pelvis SIGNATURE: RT Zenaida(R) PATIENT NAME: Russell Vaughn DATE: March 12, 2025 TIME: 1:55 PM documented in this encounterMercy Health St. [facility]05-27-2025 [facility]05-20-2025 NoteSouthern [facility] Center05-13-2025 Telephone encounter Note* Telephone Encounter - Urbano Berry RD - 02/26/2025 3:12 PM EDT Free trial of Zenpep 40,000 units Patient can take one to two tablets per meal. [facility] Work Phone: 1(535) 485-310205-13-2025 Miscellaneous Notes* Telephone Encounter - Urbano Berry RD - 02/26/2025 3:12 PM EDT Free trial of Zenpep 40,000 units Patient can take one to two tablets per meal. documented in this encounterMercy Health St. [facility]05-13-2025 [facility]05-13-2025 History of Present illness Narrative* Liliane Swanson RN - 02/26/2025 11:25 AM EDT Inquired about reason for hold on gallbladder and eye surgery - noted on OV note that this will be discussed at 03/14 OV; states understanding. Inquired about meeting with regional guide regarding foods to eat until gallbladder surgery completed- processing inspector stopped to talk with patient. documented in this encounterMercy Health St. [facility]05-13-2025 [facility]05-13-2025 History of Present illness Narrative* Urbano Berry RD - 02/26/2025 10:04 AM EDT Nutrition Therapy Initial Assessment Nutrition Diagnosis: Altered Gastrointestinal Tract Function, related to, cholestasis, as evidencedby oncology diagnosis and treatment . 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 Had been on a very low dose of PERT previously, which he stated helped somewhat - this has since been d/c'd. 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 Nutrition Intervention 02/26/2025: Continue 3 meals and snacks. Use Fairlife milk, whey protein powder, or oral nutrition supplements if needed for additional protein. Start 1 Tbsp MCT oil up to three times daily Start Vitamin D3 supplementation r/t deficiency Trial Pancreatic Enzyme Replacement Therapy (500-1000 lipase units/kg/meal) Nutrition Monitoring & Evaluation: Weight gain PO intake Supplement intake Labs Need for Follow up: 2 weeks Patient presents with cholangiocarcinoma and treated with: 02/26/25 dexAMETHasone sodium phosphate INTRAVENOUS 10 mg durvalumab INTRAVENOUS 1,500 mg fosaprepitant INTRAVENOUS 150 mg gemcitabine INTRAVENOUS 800 mg/m2 = 1,456 mg palonosetron INTRAVENOUS 0.25 mg qwqub-znsqcixo-hdekxxw (CREON 3) 3,000-9,500- 15,000 unit delayed release capsule Latest Reference Range & Units Most Recent Vitamin D 25 Hydroxy 31.0 - 80.0 ng/mL 21.0 (L) 12/10/24 15:28 (L): Data is abnormally low Latest Reference Range & Units Most Recent ELASTASE INTERPRETATION Normal Severe Exocrine Pancreatic Insufficiency ! 10/09/24 06:45 ELASTASE-1 CONCENTRATION >=200 ug/g 37 (L) 10/09/24 06:45 !: Data is abnormal (L): Data is abnormally low Patient's symptoms are: GI: abdominal pain, bloating, fat malabsorption, and heartburn Oral: dry mouth, taste changes, and fatigue Weight Concerns: weight loss Diet History: Switched to low fat foods r/t fat malabsorption issues Breakfast - two slices of white bread with smooth peanut butter Snack - Lunch - large green salad - sometimes with leftover protein Snack - Dinner - [place]/lean beef/ chicken, vegetable, potato/pasta Snack - Beverages - water Activity: Activities of Daily Living: Active 75% of the day. 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 Resting Metabolic Rate: 1371 Malnutrition Screening Significant unintentional weight loss? Yes NUTRITION FOCUSED PHYSICAL EXAM: Subcutaneous Fat Loss Orbital Mild Triceps Mild Mid-axillary at the iliac crest Unable to determine at this time Muscle Loss Locations: Temporalis Mild Pectoralis Unable to determine at this time Deltoids None Interosseous None Latissimus dorsi, trapezius None Quadriceps Mild Gastrocnemius None Potential micronutrient deficiency revealed in: Skin - pallor Edema: No Ascites: No Assessment of Functional Status: No functional impairment, normal with no limitations Eating less than 75% of usual intake for more than 2 weeks? Yes Potential Signs of Inflammation: hypoalbuminemia and chronic condition In the context of Chronic Illness or Injury based on: Insufficient Energy Intake: Less than 75% energy intake compared to estimated needs for greater than or equal to 1 month Muscle Loss Mild Loss Food Insecurity: No Food Insecurity (02/26/2025) Hunger Vital Sign Worried About Running Out of Food in the Last Year: Never true Ran Out of Food in the Last Year: Never true Education Materials Provided: Cancer and Nutrition Additional Resources READINESS TO LEARN Cognitive ability: Alert and oriented Motivation to learn: Eager Family support: Low - Inconsistent family involvement Instruction provided to: Patient Patient learns best by: Multiple Methods Factors affecting learning: None Physical limitations affecting learning: None Referred/Supervised by: Dr. Hussein MA Billing Type: Initial Assess 3 units Total Time (mins): 45 SIGNATURE: Urbano Berry RD PATIENT NAME: Russell Vaughn DATE: February 26, 2025 TIME: 10:04 AM PAGER: documented in this encounterMercy Health St. [facility]05-12-2025 NoteSouthern [facility] Center05-12-2025 History of Present illness Narrative* Casie Barragan - 02/25/2025 8:31 AM EDT HISTORY OF PRESENT ILLNESS: Russell Vaughn is a 79 year old male August 2024, having pain, stool became pale, began showing jaundice. Saw Dr Myers, via ER. Was in intensive care. Bile duct was blocked, endoscopic removal of stones with stent placement. Back to ER a few days after that saw general surgery replaced a stent. Was then sent to [facility] for ERCP, no evidence cancer on that. December 25, 2024, laparascopic cholecystectomy was planned, but on entry gall bladder was not able trace visualized, white plaque tissue describes surrounding gall bladder and involved omentum, per operative report. 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 Interval Hx: Mr. Vaughn presents today prior to C3 of treatment. He reports a lot of uncertainty in his plan of care. 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 He has a lot of questions re: surgery and why his gallbladder was not removed as well as plan for continued chemotherapy and imaging. He has tolerated treatment well thus far. Overall no new issues. Notes taste changes. Trying to eat. Drinking a boost a day. Eating more protein bars. Still having gallbladder pain when he stands straight up. No pains when he is slightly hunched over. Denies new aches or pains. No N/V/C/D. He is unable to eat greasy or fatty foods. Had an appt with Urbano Berry set up but had to be rescheduled. Would like cataract surgery. Already paid for lens. Per Dr. Dumont's previous note he is due for imaging. 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 Reviewed general plan of care in regards to chemotherapy and imaging today. RECOMMENDATION/PLAN: 1. Plan durvalumab, cisplatin and gemcitabine per NCCN guidelines. - reviewed plan for treatment today - continue with C3 pending all labs. 2. CT scans ordered today, schedule following this cycle. OV with Dr. Dumont following scans to review and update pt on plan of care. PAST MEDICAL HISTORY Diagnosis Date Adenocarcinoma (HCC) 12/25/2024 Gallbladder Diverticulosis of colon (without mention of hemorrhage) Erectile dysfunction GERD (gastroesophageal reflux disease) Internal hemorrhoids without mention of complication Nocturia Other and unspecified hyperlipidemia Prediabetes Unspecified essential hypertension Unspecified hypothyroidism PAST SURGICAL HISTORY Procedure Laterality Date COLONOSCOPY FLX DX W/COLLJ SPEC WHEN PFRMD 12/09/1999 FLEXIBLE SIGMOIDOSCOPY COLONOSCOPY FLX DX W/COLLJ SPEC WHEN PFRMD 10/02/2007 COLONOSCOPY SCREENING 12/18/2024 PAST SURGICAL HISTORY OF hydrocele repair PAST SURGICAL HISTORY OF 12/25/2024 Exploratory laparscopy with biopsies REPAIR INGUINAL HERNIA Right 10/22/2019 Dr. Annel Bradshaw, [facility] FAMILY HISTORY Problem Relation Age of Onset Emphysema Mother other (no siblings) Mother Diabetes Father Social History Tobacco Use Smoking status: Never Smokeless tobacco: Never Vaping Use Vaping status: Never Used Substance Use Topics Alcohol use: No Drug use: No ALLERGIES: ALLERGIES No Known Allergies CURRENT OUTPATIENT MEDICATIONS: Senna 8.6 mg tab Take 8.6 mg by mouth two times a day. Lactobacillus acidophilus (PROBIOTIC ORAL) Take 1 tablet by mouth every other day. prochlorperazine (COMPAZINE) 10 mg tablet Take 1 tablet by mouth every 6 hours as needed. levothyroxine (LEVOXYL) 125 mcg tablet Take 1 tablet by mouth once daily. Take on empty stomach. For thyroid. bbmbab-efilxnqv-oczigvm (CREON 3) 3,000-9,500- 15,000 unit delayed release capsule Take 1 capsule by mouth with meals and at bedtime. (Patient not taking: Reported on 12/31/2024) hydrocortisone (PROCTOZONE-HC) 2.5 % rectal cream 1 application by RECTAL route as needed. (Patientnot taking: Reported on 12/31/2024) Atkisvcebihmd-Fwnpiocx-Pekrtf (CENTRUM SILVER) Tab Take 1 tablet by mouth once daily. (Patient not taking: Reported on 12/31/2024) REVIEW OF SYSTEMS: GENERAL: No fever, night sweats, weight loss or malaise. All other reviewed and negative other than HPI. All systems reviewed on 02/25/2025 with pertinent positives and negatives as outlined in the interval history. PHYSICAL EXAMINATION: VITAL SIGNS: BP 129/45 Pulse 89 Temp (Src) 98 (Temporal) Wt 153 lb 8 oz (69.6kg) SpO2 100% GENERAL APPEARANCE: Well appearing, in no acute distress, alert and oriented x3, well-hydrated, well nourished. CHEST: Clear, equal, bilaterally HEART: RRR EXTREMITIES: no edema. Casie Barragan APRN.DELIA Castrejon spent a total of 50 minutes on the date of the service which included preparing to see the patient, qiqv-vq-feuf patient care, completing clinical documentation, obtaining and/or reviewing separately obtained history, performing a medically appropriate examination, counseling and educating the pat ient/family/caregiver, and communicating with other HCPs (not separately reported). Portions of this note including HPI, ROS, impression/plan may have been copied forward as to provide important historical information essential in contributing to medical decision making. Documentation has been reviewed and edited as necessary to support clinical decision making for today's visit and to reflect my own independent evaluation of this patient. documented in this encounterMercy Health St. [facility]05-01-2025 NoteHNO ID: [id number] Author: LES WINTERS RN Service: ? Author Type: Registered Nurse Type: Progress Notes Filed: 02/14/2025 13:26 Note Text: Pt stated no changes to assessment from Tuesday02/12/25. Les Winters RNSouthern [facility]05-01-2025 History of Present illness Narrative* Les Winters RN - 02/14/2025 9:30 AM EDT Pt stated no changes to assessment from Tuesday02/12/25. Les Winters RN documented in this encounterMercy Health St. [facility]04-29-2025 [facility]04-29-2025 History of Present illness Narrative* Les Winters RN - 02/12/2025 10:48 AM EDT Pts Prelim ANC 0.73. Dr. Dumont aware. Pt to come back for redraw labs and possible tx. Pt verbalized understanding. Scheduled with PSR's. Les Winters RN documented in this encounterMercy Health St. [facility]04-23-2025 NoteHNO ID: [id number] Author: LES WINTERS RN Service: ? Author Type: Registered Nurse Type: Progress Notes Filed: 02/08/2025 12:38 Note Text: Pt stated no changes to assessment from visit yesterday. Les Winters RNSouthern [facility] Center04-22-2025 NoteHNO ID: [id number] Author: LES WINTERS RN Service: ? Author Type: Registered Nurse Type: Progress Notes Filed: 02/05/2025 12:35 Note Text: CMP sent to [place]. Pt did not wish to wait longer. Coming back tomorrow for tx. Les Winters RNSouthern [facility] Center04-02-2025 Telephone encounter Note* Telephone Encounter - Dione Witt RN - 01/16/2025 11:51 AM EDT CYCLE 1/DAY 1 POST TREATMENT CALL Today's date: January 16, 2025 Treatment Regimen: Durvalumab/Gemzar/Cisplatin C1D1 Date: 01/15/25 Called patient to follow-up on symptom management. 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 SYMPTOM ASSESSMENT Neuro: None CV/Resp: None GI/: States hungry after chemotherapy, had Burger Zac sandwich, had reflux afterward. States he has issues with some food and wished they would be able to take his gallbladder out. No reflux today. He states he is wondering about what to eat b/c of reflux issue and concerned about the weight losshe has already had. He feels the things he can eat are not going to keep him from losing more weight. Offered an appointment with Urbano Berry but he refused at this time. He would like to see how a few treatment cycles go and then might consider it later. Integument: None Activity: Activity Level (0-100%): same as baseline Pain: No=0 (pain 0 on a scale of 0-10). Fever: No Chills: No Any new referrals needed? No Reinforced CURRENT treatment education based on current and anticipated symptoms. Discussed port/line care and patient verbalizes understanding: Not Applicable Patient instructed to contact office or after hours Hematology/Oncology fellow for: temperature >= 100.4; questions or concerns. Patient verbalized understanding of when to seek medical attention and after hours number protocol. Dione Witt RN [facility] Work Phone: 1(275) 381-533504-02-2025 Miscellaneous Notes* Telephone Encounter - Dione Witt RN - 01/16/2025 11:51 AM EDT CYCLE 1/DAY 1 POST TREATMENT CALL Today's date: January 16, 2025 Treatment Regimen: Durvalumab/Gemzar/Cisplatin C1D1 Date: 01/15/25 Called patient to follow-up on symptom management. Spoke with patient, I am doing fine Patient isout in [employer] working on [employer]. SYMPTOM ASSESSMENT Neuro: None CV/Resp: None GI/: States hungry after chemotherapy, had Burger Zac sandwich, had reflux afterward. States he has issues with some food and wished they would be able to take his gallbladder out. No reflux today. He states he is wondering about what to eat b/c of reflux issue and concerned about the weight losshe has already had. He feels the things he can eat are not going to keep him from losing more weight. Offered an appointment with Urbano Berry but he refused at this time. He would like to see how a few treatment cycles go and then might consider it later. Integument: None Activity: Activity Level (0-100%): same as baseline Pain: No=0 (pain 0 on a scale of 0-10). Fever: No Chills: No Any new referrals needed? No Reinforced CURRENT treatment education based on current and anticipated symptoms. Discussed port/line care and patient verbalizes understanding: Not Applicable Patient instructed to contact office or after hours Hematology/Oncology fellow for: temperature >= 100.4; questions or concerns. Patient verbalized understanding of when to seek medical attention and after hours number protocol. Dione Witt RN documented in this encounterMercy Health St. [facility]03-27-2025 Telephone encounter Note * Telephone Encounter - Dione Witt RN - 01/10/2025 11:09 AM EDT Call to patient, aware he needs to hold off on cataract surgery. Discussed rationale. He states understanding and will call eye doctor and let them know. Candy Witt RN [facility] Work Phone: 1([phone]) 838-668803-27-2025 Miscellaneous Notes* Telephone Encounter - Dione Witt RN - 01/10/2025 11:09 AM EDT Call to patient, aware he needs to hold off on cataract surgery. Discussed rationale. He states understanding and will call eye doctor and let them know. Candy Witt RN * Telephone Encounter - Dione Witt RN - 01/09/2025 3:[address] Dumont advises holding off on cataract surgery until after a least a few cycles. Candy Witt RN * Telephone Encounter - Dione Witt RN - 01/09/2025 11:08 AM EDT [facility] Care Coordination FOLLOW-UP NOTE Patient identified by name and date of . YES Spoke to patient Summary: (Reason for follow-up) Patient calls to state that he has been scheduled for cataract surgery. One eye on 01/22/25 and then the next 02/05/25. Eye doctor aware of upcoming treatments and told him ok to have procedure during treatment. I will update Dr. Dumont. Reviewed upcoming appointment with our office. Some appointments will need adjusted. Reviewed day of treatment expectations with patient, need for someone to come with him the day of treatment. Patient confirms that he has read through treatment information. All questions answered. Patient verbalized when to seek Medical Attention and an understanding of after- hours phone numberand process: Yes Care Coordination Plan: Will follow up with updated appointment times. Dione Witt RN January 09, 2025 [address]Mer[facility]. [facility]03-26-2025 Telephone encounter Note * Telephone Encounter - Dione Witt RN - 01/09/2025 3:[address] Dumont advises holding off on cataract surgery until after a least a few cycles. Candy Witt RN [facility]03-26-2025 Telephone encounter Note* Telephone Encounter - Dione Witt RN - 01/09/2025 11:08 AM EDT [place] Care Coordination FOLLOW-UP NOTE Patient identified by name and date of . YES Spoke to patient Summary: (Reason for follow-up) Patient calls to state that he has been scheduled for cataract surgery. One eye on 01/22/25 and then the next 02/05/25. Eye doctor aware of upcoming treatments and told him ok to have procedure during treatment. I will update Dr. Dumont. Reviewed upcoming appointment with our office. Some appointments will need adjusted. Reviewed day of treatment expectations with patient, need for someone to come with him the day of treatment. Patient confirms that he has read through treatment information. All questions answered. Patient verbalized when to seek Medical Attention and an understanding of after- hours phone numberand process: Yes Care Coordination Plan: Will follow up with updated appointment times. Dione Witt RN January 09, [address] [facility]03-19-2025 Evaluation note* Diagnosis Onset Date Resolution Status Admit Date Carcinomatosis acute December 8:57am [facility] Work Phone: 1(760) 316-966603-17-2025 Telephone encounter Note* Telephone Encounter - Freda Miller - 12/31/2024 4:38 PM EDT This pt.is scheduled for the first 2 cycles. Freda Miller [facility]03-17-2025 Miscellaneous Notes* Telephone Encounter - Freda Miller - 12/31/2024 4:38 PM EDT This pt.is scheduled for the first 2 cycles. Freda Miller * Telephone Encounter - Naty Escamilla - 12/31/2024 3:04 PM EDT Chemo Education -Patient declined Start Q3wk Durvalumab/Cisplatin/Gemzar, CBC/CMP/TSH/T4/Cortisol, straight back to start. CBC with D8 CBC/CMP/TSH every 3wks CBC/CMP/TSH/T4/Cortisol/OV every 6 wks No Fridays documented in this encounterMercy Health St. [facility]03-17-2025 Note* Addendum Note - Dione Witt RN - 12/31/2024 3:31 PM EDTAddended by: DIONE WITT on: 12/31/2024 03:31 PM Modules accepted: Orders [facility] Work Phone: 1(486) 147-139903-17-2025 Miscellaneous Notes* Addendum Note - Dione Witt RN - 12/31/2024 3:31 PM EDTAddended by: DIONE WITT on: 12/31/2024 03:31 PM Modules accepted: Orders * Telephone Encounter - Dione Witt RN - 12/31/2024 3:11 PM EDT Met with patient and introduced myself. Patient was given a My Journey binder with chemocare information, office contact information, thermometer, and additional chemotherapy resource booklets. Patient aware this nurse will review on scheduled appointment date. Cnady Witt RN Also, cancelled Compazine to [facility] in [place] and reordered to [facility], mail order per patient request. Order pended to Dr. Dumont to sign. Candy Witt RN documented in this encounter[facility] Telephone encounter Note * Telephone Encounter - Dione Witt RN - 12/31/2024 3:11 PM EDT Met with patient and introduced myself. Patient was given a My Journey binder with chemocare information, office contact information, thermometer, and additional chemotherapy resource booklets. Patient aware this nurse will review on scheduled appointment date. Candy Witt RN Also, cancelled Compazine to [facility] in [place] and reordered to [facility], mail order per patient request. Order pended to Dr. Dumont to sign. Candy Witt RN [facility]03-17-2025 Telephone encounter Note* Telephone Encounter - Naty Escamilla - 12/31/2024 3:04 PM EDT Chemo Education -Patient declined Start Q3wk Durvalumab/Cisplatin/Gemzar, CBC/CMP/TSH/T4/Cortisol, straight back to start. CBC with D8 CBC/CMP/TSH every 3wks CBC/CMP/TSH/T4/Cortisol/OV every 6 wks No Fridays [facility]03[facility]17[facility] History of Present illness Narrative* Onel Dumont MD - 12/31/2024 2:09 PM EDT HISTORY OF PRESENT ILLNESS: Russell Vaughn is a 79 year old male August 2024, having pain, stool became pale, began showing jaundice. Saw Dr Louis, via ER. Was in intensive care. Bile duct was blocked, endoscopic removal of stones with stent placement. Back to ER a few days after that saw general surgery replaced a stent. Was then sent to [facility] for ERCP, no evidence cancer on that. December 25, 2024, laparascopic cholecystectomy was planned, but on entry gall bladder was not able trace visualized, white plaque tissue describes surrounding gall bladder and involved omentum, per operative report. 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 RECOMMENDATION/PLAN: 1. Plan durvalumab, cisplatin and gemcitabine per NCCN guidelines. 2. Will follow up when treatment underway. 3. Plan CT scan after 2 cycles, Written and verbal health teaching given to patient, patient verbalizes understanding and agrees with treatment plan. PAST MEDICAL HISTORY Diagnosis Date Diverticulosis of colon (without mention of hemorrhage) Erectile dysfunction GERD (gastroesophageal reflux disease) Internal hemorrhoids without mention of complication Nocturia Other and unspecified hyperlipidemia Prediabetes Unspecified essential hypertension Unspecified hypothyroidism PAST SURGICAL HISTORY Procedure Laterality Date COLONOSCOPY FLX DX W/COLLJ SPEC WHEN PFRMD 12/09/1999 FLEXIBLE SIGMOIDOSCOPY COLONOSCOPY FLX DX W/COLLJ SPEC WHEN PFRMD 10/02/07 PAST SURGICAL HISTORY OF hydrocele repair REPAIR INGUINAL HERNIA Right 10/22/2019 Dr. Annel Bradhsaw, [facility] FAMILY HISTORY Problem Relation Age of Onset Emphysema Mother other (no siblings) Mother Diabetes Father Social History Tobacco Use Smoking status: Never Smokeless tobacco: Never Vaping Use Vaping status: Never Used Substance Use Topics Alcohol use: No Drug use: No ALLERGIES: ALLERGIES No Known Allergies CURRENT OUTPATIENT MEDICATIONS: Lactobacillus acidophilus (PROBIOTIC ORAL) Take 1 tablet by mouth once daily. levothyroxine (LEVOXYL) 125 mcg tablet Take 1 tablet by mouth once daily. Take on empty stomach. For thyroid. krktmd-mrammmax-xczbtjv (CREON 3) 3,000-9,500- 15,000 unit delayed release capsule Take 1 capsule by mouth with meals and at bedtime. (Patient not taking: Reported on 12/31/2024) hydrocortisone (PROCTOZONE-HC) 2.5 % rectal cream 1 application by RECTAL route as needed. (Patientnot taking: Reported on 12/31/2024) Uvsyvwufevqos-Scwryucb-Zfmjha (CENTRUM SILVER) Tab Take 1 tablet by mouth once daily. (Patient not taking: Reported on 12/31/2024) REVIEW OF SYSTEMS: GENERAL: No fever, night sweats, weight loss or malaise. All other reviewed and negative other than HPI. PHYSICAL EXAMINATION: VITAL SIGNS: BP 153/89 Pulse 98 Temp (Src) 97.8 (Temporal) Ht 5' 6.142 (1.68m) Wt 156 lb 8oz (71.0kg) SpO2 96% BMI 25.15 kg/(m^2). GENERAL APPEARANCE: Well appearing, in no acute distress, alert and oriented x3, well-hydrated, well nourished. I spent a total of 60 minutes on the date of the service which included preparing to see the patient, nmkf-hn-ivnj patient care, completing clinical documentation, obtaining and/or reviewing separately obtained history, counseling and educating the patient/family/caregiver, ordering medications, ermelinda ts, or procedures, communicating with other HCPs (not separately reported), independently interpreting results (not separately reported), communicating results to the patient/family/caregiver, and care coordination (not separately reported). Review of images. Electronically Signed: Onel Dumont MD December 31, 2024 2:09 PM documented in this encounterMer[facility]03-[facility]-2025 Telephone encounter Note * Telephone Encounter - Zoraida Julien LPN - 12/26/2024 1:40 PM EDT Spoke with pt states he knows nothing about this. Pt states would prefer to see Dr. Tiffani louie in [place] for oncology that is who his sees and he is famiiar with him. He knows nothing of referral or appointment of any kind. Spoke with Cintia she spoke with Dr. Valentin's office they put referral in or oncology and was sent to Dr. Lamas' s office. Pt will here from then to schedule. This information was left back on pt's machine with our number for any questions. [facility]03-12-2025 Miscellaneous Notes* Telephone Encounter - Zoraida Julien LPN - 12/26/2024 1:40 PM EDT Spoke with pt states he knows nothing about this. Pt states would prefer to see Dr. Nixon here in [place] for oncology that is who his sees and he is famiiar with him. He knows nothing of referral or appointment of any kind. Spoke with Cintia she spoke with Dr. Valentin's office they put referral in or oncology and was sent to Dr. Lamas' s office. Pt will here from then to schedule. This information was left back on pt's machine with our number for any questions. * Telephone Encounter - Efrain Peters DO - 12/26/2024 9:26 AM EDT We have been able to call Dr. Valentin office and patient has been referred and scheduled with Onc Efrain Peters DO * Telephone Encounter - Lluvia Do LPN - 12/25/2024 4:51 PM EDT Pt's calls today to report that when pt had colonoscopy and endoscopy they appeared good. reports when Dr. Malagon went to remove pt's gallbladder he found it was encased in cancer.Dr. Malagon did not remove gallbladder and reports pt needs to see oncology altaf. is requesting referral to oncology. is requesting Dr. Peters review Dr Malagon's report. Call with what is next with referral for oncology. Lluvia Do LPN documented in this encounterMer[facility]03-[facility]-2025 Telephone encounter Note * Telephone Encounter - Efrain Peters DO - 12/26/2024 9:26 AM EDT We have been able to call Dr. Calbretta office and patient has been referred and scheduled with Onc Efrain Peters DO [facility]03-11-2025 Telephone encounter Note* Telephone Encounter - Lluvia Do LPN - 12/25/2024 4:51 PM EDT Pt's calls today to report that when pt had colonoscopy and endoscopy they appeared good. reports when Dr. Malagon went to remove pt's gallbladder he found it was encased in cancer.Dr. Malagon did not remove gallbladder and reports pt needs to see oncology altaf. is requesting referral to oncology. is requesting Dr. Peters review Dr Malagon's report. Call with what is next with referral for oncology. Lluvia Do LPN [facility]03-11-2025 Discharge summary Author Mike Malagon [facility] Note Date/Time December 25, 2024 8:3 9am [facility] Medical Records Department [address] [place] [address] Instructions for Home/Discharge Instructions 12/25/24 0837 MR#: [id number] Acct: [id number] Name: RUSSELL VAUGHN Rep #:[id number] : 1945 79 From: Mike king MD PCP: Dr. Efrain Peters DO Status[place] [facility] [place]charge Instructions Procedure Gallbladder Diet Discharge Diet: Light diet - advance as tolerated Activity Discharge Activity: May Not Drive (for 2-3 days or while taking narcotic pain medications.) and - (Do not drive, work heavy equipment or sign legal documents for 24 hours.) May shower in (days): 1 Lifting Restrictions: 20 lbs for 2 weeks Additional Activity Instructions:: Pain medication may cause nausea. You should typically eat light foods as you take your pain medications. Pain medication may also cause constipation. If this is a problem for you, please discuss with your doctor. Dressing / Incision Call your doctor if your incision/area has: Continuous Slow Oozing, Sudden Increased Bleeding, Increased Pain/ Swelling, Increased Redness and Foul Smelling Discharge Call your doctor if you observe: Fever of 101 or Higher Suture Line Care: Avoid Pulling/Pushing and Avoid Pinching/Bending Remove Dressing in: 2 days Additional Dressing/Incision Instructions:: Leave operative bandaids on for 2 days. When you remove dressing, leave Steri-Strips on until your follow-up appointment, or until the Steri-Strips fall off on their own. Follow Up Care Please Follow Up With: Mike Malagon MD When: Please call to schedule 2 week follow up appointment. [phone] Test Results: Test results from this visit will be discussed in further detail at your follow- up appointment, if applicable. Discharge Plan Admission Attending Provider: Mike Malagon Primary Care Provider: Efrain Peters Instructions Print Language: Cypriot Discharge Orders/Prescriptions Prescriptions: New oxycodone 5 mg tablet 5 - 10 mg PO Q6H PRN (Reason: pain) 5 Days Qty: 20 0RF No Action levothyroxine 125 mcg capsule 125 mcg PO QDAY geriatric ppipoydg-ajpi-hvub Tablet 1 tab PO QDAY acetaminophen 325 mg Tablet 650 mg PO Q6H PRN PRN (Reason: Pain 1-10 Or Fever) Qty: 0 0RF Referrals / Follow Up: Efrain Peters DO [Primary Care Provider] - Disposition Disposition (needs filled in before D/C Order can be placed): Home, Self Care 12/25/24 0839<Electronically signed by Mike Malagon MD>Mike Malagon MD CC: Dr. Efrain Peters DO ~ Signed [facility] Work Phone: 1(335) 374-359903-11-2025 Consult note Author Jorge Albertoagnieszka Bass [facility] Note Date/Time December 25, 2024 7:3 0am [facility] Medical Records Department [address] [place] [address] Pre-Anesthesia Evaluation 12/25/24 0728 MR#: [id number] Acct: [id number] Name: RUSSELL VAUGHN Rep #:[id number] : 1945 79 From: Jorge Alberto og CRNA PCP: Dr. Efrain Peters DO Status:RE G SDC Y Race: C Location: [place] [address]-1 ASA Classification* ASA Classification ASA Classification: 3 Assessment & Plan Anesthesia* Anesthesia Assessment Anesthesia Assessment: Discussed sedation and/or anesthesia options, risks, benefits, and alternatives with patient/parents/legal guardian/POA. Questions invited. The patient/parents/legal guardian/POA seems to understand and agrees to proceedwith anesthesia plan. Reviewed the physical assessment, medical history, allergy history and patient home medications list prior to surgery/procedure/anesthetic and documented any changes. Performed airway and anesthesia risk assessments. Anesthesia Type Anesthesia Type: General History Source History Obtained from:: Patient Anesthesia Focused Assessment* Temperature: 98.6 F Pulse Rate: 90 Blood Pressure: 131/80 Respiratory Rate: 16 Pulse Ox: 100 Oxygen Delivery Method: Room Air Airway Assessment Mouth opens: >3 cm Mallampati Score: I Teeth Condition: Caps/Crowns (gold tooth bottom right) Focused Labs Anesthesia Preop lab: CBC WBC 16.5 K/mm3 (4.4-11.0) H 11/20/24 07:44 5 RBC 4.10 M/mm3 (4.6-6.2) L 11/20/24 07:44 11/20/24 Hgb 13.2 g/dL (13.0-16.5) 11/20/24 07:44 11/20/24 Hct 40.7 % (40-54) 11/20/24 07:44 11/20/24 Plt Count 173 K/mm3 (150-450) 11/20/24 07:44 11/20/24 CHEMISTRY Potassium 3.7 mmol/L (3.5-5.1) 11/20/24 07:44 11/20/24 Sodium 138 mmol/L (136-145) 11/20/24 07:44 11/20/24 Magnesium 2.3 mg/dL (1.6-2.6) 11/20/24 07:44 11/20/24 Phosphorus 1.8 mg/dL (2.5-4.9) L 11/20/24 07:44 11/20/24 BUN 20 mg/dL (7-18) H 11/20/24 07:44 11/20/24 Creatinine 0.66 mg/dL (0.70-1.30) L 11/20/24 07:44 Glucose 82 mg/dL (74-106) 11/20/24 07:44 11/20/24 TSH 6.410 uIU/mL (0.300-4.200) H 12/19/24 16:53 COAG PT 14.6 SECONDS (11.7-14.9) 10/24/24 14:40 Pre-Assessment Diagnosis/Proposed Procedure Planned Operative Procedure(s): LAPAROSCOPIC CHOLESYECTOMY WITH IOC Anesthesia History Anesthesia History - bun icer: Anesthesia History - bun icer Hx Hospitalization Yes: [facility] 12/19/24 16:08 Any Problems With Anesthesia No 12/19/24 16:08 Cholinesterase deficiency No 12/19/24 16:08 You/Your Family Experience No 12/19/24 16:08 fever (hyperthermia) with Relationship Recent Exposure to Contagious No 12/25/24 06:42 Disease Does patient have nerve No 12/19/24 16:08 stimulator Patient instructed to have device shut off --Does patient have Pacemaker No 12/25/24 06:42 or ICD? When Was Last Pacemaker Check QUESTION #4 FULL TEXT: You/Your Family Experience fever (hyperthermia) with Anesthesia Last Oral Intake Last Oral intake: Last Oral Intake NPO since 18:00 12/25/24 06:42 Meds taken in AM with sips of No 12/25/24 06:42 water? Meds patient instructed to take am of surgery PONV PONV - bun icer: PONV - bun icer Female No 12/19/24 16:08 HX of Motion Sickness No 12/19/24 16:08 HX of N/V After Surgery No 12/19/24 16:08 Non-Smoker Yes 12/19/24 16:08 Duration of Surgery greater Yes 12/19/24 16:08 than 60 minutes Number of Risk Factors 2 12/19/24 16:08 PONV Score Moderate Risk 12/19/24 16:08 Height & Weight Height & Weight: Anesthesia: Height & Weight Height 5 ft 8 in 12/25/24 06:42 Weight: 73 kg 12/25/24 06:42 Body Mass Index (BMI) 24.5 12/25/24 06:42 Respiratory Assessment Respiratory Assessment - bun icer: Respiratory Tract Infection Hx - bun icer Hx Respiratory Tract Infection No 12/19/24 16:08 STOP Sleep Apnea STOP Sleep Apnea - bun icer: STOP Sleep Apnea - bun icer Hx Hypertension No 12/19/24 16:08 Hx Sleep Apnea No 12/19/24 16:08 CPAP BIPAP Do you snore loudly (louder No 12/19/24 16:08 than talking or can be heard Do you often feel tired/ No 12/19/24 16:08 fatigued/ sleepy during daytime? Has anyone observed you stop No 12/19/24 16:08 breathing during sleep? STOP Results Negative 12/19/24 16:08 QUESTION #5 FULL TEXT : Do you snore loudly (louder than talking or can be heard through closed doors)? 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 Specify any problems Hx of Preganancy in last 3 N/A 12/19/24 16:08 Months Nurse Filling Out Transfusion [id number] 12/19/24 16:08 & Questions: Date: 12/19/24 12/19/24 16:08 Time: 16:12 12/19/24 16:08 Patient unable to answer at this time (ie. confused, unrespo /Reproduction History /Reproductive History - bun icer: /Reproductive Hx- bun icer Hx Now Gestational Age (in weeks): EDC: Hx Hx Para Hx Section SAB Active Medications Active Medications: Current Medications Generic Name Dose Route Start Last Admin Trade Name Freq PRN Reason Stop Dose Admin Cefotetan Disodium 2 gm/ 100 mls @ 200 mls/hr 12/25/24 07:30 Sodium Chloride IV 12/25/24 07:59 PREOP ONE Sodium Chloride 1,000 mls @ 15 mls/hr 12/25/24 06:15 IV 12/30/24 19:34 .Q48H STEVIE Protocol PFSH Medical History (Updated 12/19/24 @ 16:15 by Fadi Stiles) Wears glasses Non-smoker Hypertension Right inguinal hernia Hypothyroid Nocturia Internal hemorrhoids GERD (gastroesophageal reflux disease) Erectile dysfunction Diverticulosis Home Medications ?Medication ?Instructions ?Recorded ?Last Taken ?Type acetaminophen 325 mg tablet 650 mg (2 x 325 mg) PO Q6H PRN PRN 11/20/24 Unknown Rx Pain 1-10 Or Fever #0 tabs geriatric xbncrcer-krjy-umrf 1 tab PO QDAY 12/12/24 Un known History levothyroxine 125 mcg capsule 125 mcg PO QDAY 12/12/24 12/16/24 History Allergy/AdvReac Type Severity Reaction Status Date / Time No Known Allergies Allergy Verified 12/19/24 16:04 Family History Mother Asthma Father Heart disease High cholesterol Surgical History History of ERCP S/P right inguinal hernia repair History of hydrocelectomy Hx of colonoscopy Social History Smoking Status: Never smoker second hand exposure: No alcohol intake: never substance use type: does not use caffeine: Yes what type of physical activity do you participate in: walking, aerobics and weight training frequency: daily Review of Systems (Anesthesia) ROS Narrative System reviewed and no additional complaints, except as documented. Physical Exam Const oriented x3 12/25/24 0730 <Electronically signed by Jorge Alberto thakur CRNA> Date _ Jorge Alberto Bass CRNA Cosigner Signature: Date CC: ~ Signed [facility] Work Phone: 1(630) 394-555403-11-2025 History and physical note Author Mike Malagon [facility] Note Date/Time December 25, 2024 7:0 2am [facility] Medical Records Department [address] [place] [address] History & Physical Exam 12/25/24 0701 MR#: [id number] Acct: [id number] Name: RUSSELL VAUGHN Rep #:[id number] : 1945 79 From: Mike king MD PCP: Dr. Efrain Peters, DO Status:[place] [facility] [place] Location: [place] [address] History and Physical Date of Admission: 12/25/24 History and Physical Date of Admission: 12/18/24 Intake Vital Signs 11/19/2508:42 12/12/2512:43 Height 5 ft 8 in 5 ft 8 in Weight: 163 lb BMI 24.7 BP 115/76 Blood Pressure Location Rt brachial Position Sitting Respiration 17 Pulse 82 Pulse Source Monitor Pulse Oximetry (%) 96 Oxygen Delivery Method room air Intake Visit Reasons: GALLBLADDER Chief Complaint: gallbladder and colonoscopy Is patient in pain?: Yes Allergies No Known Allergies Allergy (Verified 12/12/24 13:44) Medications ?Medication ?Instructions ?Recorded ?Confirmed ?Type acetaminophen 325 mg tablet 650 mg (2 x 325 mg) PO Q6H PRN PRN 11/2012/12/24 Rx Pain 1-10 Or Fever #0 tabs geriatric gkkcdegr-ikxj-amhh 1 tab PO QDAY 12/12/24 12/12/24 History levothyroxine 125 mcg capsule 125 mcg PO QDAY 12/12/24 12/12/24 Histor y Have you fallen in the past year?: No PFSH Medical History (Updated 12/12/24 @ 14:[address] Mike Malagon MD) Non-smoker Hypertension Right inguinal hernia Hypothyroid Nocturia Internal hemorrhoids GERD (gastroesophageal reflux disease) Erectile dysfunction Diverticulosis Surgical History S/P right inguinal hernia repair History of hydrocelectomy Hx of colonoscopy Family History Mother AsthmaFather Heart disease High cholesterol Social History Smoking Status: Never smoker second hand exposure: No alcohol intake: never substance use type: does not use caffeine: Yes what type of physical activity do you participate in: walking, aerobics and weight training frequency: daily HPI HPI HPI: Patient is a 79-year-old male following up after hospitalization. The patient is here for 2 issues. First issue is his gallbladder and the second is a colonoscopy. He notes that for several months he has been having difficulty passing stool and he has noted a change in stool caliber. His last colonoscopy was 8 years ago. He denies blood in the stool. He does have abdominal pain. The patient is also being worked up for a stricture in his common bile duct. Hewent to [facility] and had a EUS with biopsy of a 10 x 11 mm lesion in the distalcommon bile duct. The biopsy came back benign as did the brushings. Patient still complaining of right upper quadrant pain. The patient had metal common bile duct stent placed by Dr. Myers during his last hospitalization. ROS General General: No weight change, appetite, fatigue, colon cancer, breast cancer or weakness HEENT HEENT: No difficulty swallowing, eye injury, eye surgery, swollen glands or hoarseness Endo Endocrine: Yes thyroid disease; No diabetes mellitus, thyroid cancer, Hair loss, heat intolerance or cold intolerance Skin Skin: No rash or changing moles Musc Musculoskeletal: No back problems, arthritis, rheumatoid arthritis, gout or joint pain Cardio Cardiovascular: No murmur, pacemaker, heart disease, atrial fibrillation, high blood pressure, heart attack, heart stent, palpitations, shortness of breat withexertion or chest pain Psych Psychiatric: No depression, anxiety or hearing voices Resp Respiratory: No shortness of breath, No sleep apnea, No cough, No COPD, No asthma, No emphysema and No wheezing Gastro Gastrointestinal: Yes abdominal pain, No nausea or vomiting, No diarrhea, Yes constipation, No blood in stool, Yes acid reflux, No hemorrhoids, No ulcers, Yesgallbladder problem and No black,tarry stools Margarito Hematologic: No blood thinners, No blood disorders, No bleeding, No anemia and No blood clots Neuro Neurologic: No system reviewed and no additional complaints, except as documented, No as per HPI, No abnormal gait, No abnormal hearing, No abnormal movements, No abnormal speech, No behavioral changes, No burning sensations, No confusion, No convulsions, No disequilibrium, No dizziness, No localized weakness, No frequent falls, No headache(s), No lack of coordination, No loss ofvision, No memory loss, No numbness, No other visual disturbances, No radicular pain, No restless legs, No sensory deficit, No syncope, No tingling, No tremor(s), No weakness and No other Exam Const General: cooperative Orientation: alert and oriented x3 HENMT Head: normal to inspection Neck Neck: normal visual inspection and full ROM Chest Chest palpation & inspection: normal inspection of the chest Resp Effort & Inspection: normal respiratory effort Auscultation: clear to auscultation bilaterally Cardio Rate: regular rate Rhythm: regular rhythm GI Inspection: non-distended Palpation: soft and tender in the RUQ Skin General: no rashes or lesions noted Neuro General: patient alert and patient oriented x3 Extrem General: full ROM Psych Appearance: grossly normal Mental Status: mental status grossly normal Assessment and Plan Assessment and Plan (1) Change in stool caliber: Status: Acute Plan: Patient is having change in stool caliber and request colonoscopy to evaluate susie thinks he has a partial blockage. He reports that is difficult to pass stools and the caliber has changed. I explained endoscopy in detail to the patient. I explained the risks including but not limited to stroke or heart attack with anesthesia, perforation of the GI tract, bleeding, infection. I explained that any of these could necessitate further emergency surgery. The patient understands and all questions were answered sufficiently. The patient wishes to proceed with procedure. 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 I will proceed with laparoscopic cholecystectomy after colonoscopy. I discussed the procedure in detail with the patient. I discussed the risks, benefits, and alternatives of the procedure. I discussed the risks including but not limited to bleeding, infection, injury to surrounding organs such as theliver, bile duct, bowels. I did discuss the possibility of having to convert jade open procedure as well as the possibility that if any injuries occurred this may necessitate further surgery at a tertiary care center. Mike Malagon MD Pager: [facility] [address] [place] [address], [address] [place] [address] Office: I have examined the patient and the H&P has been reviewed. There are no clinicalchanges since date of exam. 12/25/24 0702 <Electronically signed by Mike Malagon MD> Cosigner Signature (if applicable): CC: Dr. Mike Malagon MD; Dr. Efrain Peters, DO~ Signed [facility] Work Phone: [phone]) 688-261103-11-2025 Discharge summary [facility] Medical Records Department [address] [place] [address] Instructions for Home/Discharge Instructions 12/25/24 0837 MR#: [id number] Acct: [id number] Name: RUSSELL VAUGHN Rep #:[id number] : 1945 79 From: Mike king MD PCP: Dr. Efrain Peters, DO Status:RE G SDC Discharge Instructions Procedure Gallbladder Diet Discharge Diet: Light diet - advance as tolerated Activity Discharge Activity: May Not Drive (for 2-3 days or while taking narcotic pain medications.) and - (Do not drive, work heavy equipment or sign legal documents for 24 hours.) May shower in (days): 1 Lifting Restrictions: 20 lbs for 2 weeks Additional Activity Instructions:: Pain medication may cause nausea. You should typically eat lightfoods as you take your pain medications. Pain medication may also cause constipation. If this is a problem for you, please discuss with yourdoctor. Dressing / Incision Call your doctor if your incision/area has: Continuous Slow Oozing, Sudden Increased Bleeding, Increased Pain/ Swelling, Increased Redness and Foul Smelling Discharge Call your doctor if you observe: Fever of 101 or Higher Suture Line Care: Avoid Pulling/Pushing and Avoid Pinching/Bending Remove Dressing in: 2 days Additional Dressing/Incision Instructions:: Leave operative bandaids on for 2 days. When you removedressing, leave Steri-Strips on until your follow-up appointment, or until the Steri-Strips fall off on their own. Follow Up Care Please Follow Up With: Mike Malagon MD When: Please call to schedule 2 week follow up appointment. [phone] Test Results: Test results from this visit will be discussed in further detail at your follow- up appointment, if applicable. Discharge Plan Admission Attending Provider: Mike Malagon Primary Care Provider: Efrain Peters Instructions Print Language: Cypriot Discharge Orders/Prescriptions Prescriptions: New oxycodone 5 mg tablet 5 - 10 mg PO Q6H PRN (Reason: pain) 5 Days Qty: 20 0RF No Action levothyroxine 125 mcg capsule 125 mcg PO QDAY geriatric vsfmmahm-xish-sysl Tablet 1 tab PO QDAY acetaminophen 325 mg Tablet 650 mg PO Q6H PRN PRN (Reason: Pain 1-10 Or Fever) Qty: 0 0RF Referrals / Follow Up: Efrain Peters DO [Primary Care Provider] - Disposition Disposition (needs filled in before D/C Order can be placed): Home, Self Care 12/25/24 0839Mike Malagon MD CC: Dr. Efrain Peters DO ~ Signed [facility]03-11-2025 Procedure note [facility] Medical Records Department [address] [place] [address] Operative Report 12/25/24830 MR#: [id number] Acct: [id number] Name: RUSSELL VAUGHN Rep #:[id number] : 1945 79 From: Mike king MD PCP: Dr. Efrain Peters DO Status:[facility] Location: [place] [address] Operative Report (Standard) Operative Information Date of Procedure: 12/25/24 Pre-Operative Diagnosis: Cholelithiasis Post-Operative Diagnosis: Carcinomatosis Surgery/Procedure Performed: Exploratory laparoscopy with biopsies kettle skimmer: Yes Rate Examiner: Fanta Callahan Tasks completed by internet marketing assistant: Opening and Closing Type of Anesthesia: General/Regional RN Documented Start/Stop Times: Operation Date: 12/25/24 07:30 Case Time Into Pre-Op 12/25/24 06:11 Anesthesia Start 12/25/24 07:30 Into Room 12/25/24 07:30 Out of Pre-Op 12/25/24 07:34 Procedure Start 12/25/24 07:48 Procedure End 12/25/24 08:11 Anesthesia End 12/25/24 08:18 Out of Room 12/25/24 08:18 Into Recovery 12/25/24 08:20 Procedure Start Time: 07:48 Procedure Stop Time: 08:11 Select all DRAINS/GRAFTS/IMPLANTS that apply: None Estimated Blood Loss: 2 Specimen collected: Yes Description of specimen(s) removed: omental biopsy Description of surgery: Patient was brought back to the operating room and general anesthesia was induced. The abdomen was prepped and draped in usual sterile fashion. Midline incision was made superior to the umbilicus anddeepened to the fascia which waselevated and incised. Port was placed into the abdomen the abdomen is insufflated 15 mmHg. A subxiphoid port was placed under direct visualization aswell as 2 subcostal right upper quadrant 5 mm ports. The omentum was tightly adherent to the gallbladder and there were white plaques under the diaphragm. Iwas unable to see the gallbladder. I found a nodular area of the omentum that was adherent to the gallbladder and we amputated dissection and sent it for frozen pathology. This frozen pathology revealed a dental carcinoma. The surgery was aborted and the abdomenwas allowed to desufflate. The ports were removed. The midline fascia was closed with a odkiag-of-bvkgl 0 Vicryl suture. The incisions were injected with local anesthetic and closed with interrupted 4-0 Monocryl sutures. Steri-Strips and bandages were applied and patient was taken to PACU in stablecondition. 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 Mike Malagon MD; Dr. Efrain Peters, ~ Signed [facility]03-11-2025 Consult note [facility] Medical Records Department [address] [place] [address] Pre-Anesthesia Evaluation 12/25/24 0728 MR#: [id number] Acct: [id number] Name: RUSSELL VAUGHN Rep #:[id number] : 1945 79 From: Jorge Alberto og CRNA PCP: Dr. Efrain Peters DO Status:RE G SDC Y Race: C Location: [facility]1 ASA Classification* ASA Classification ASA Classification: 3 Assessment & Plan Anesthesia* Anesthesia Assessment Anesthesia Assessment: Discussed sedation and/or anesthesia options, risks, benefits, and alternatives with patient/parents/legal guardian/POA. Questions invited. The patient/parents/legal guardian/POA seems to understand and agrees to proceedwith anesthesia plan. Reviewed the physical assessment, medical history, allergy history and patient home medications list prior to surgery/procedure/anesthetic and documented any changes. Performed airway and anesthesia risk assessments. Anesthesia Type Anesthesia Type: General History Source History Obtained from:: Patient Anesthesia Focused Assessment* Temperature: 98.6 F Pulse Rate: 90 Blood Pressure: 131/80 Respiratory Rate: 16 Pulse Ox: 100 Oxygen Delivery Method: Room Air Airway Assessment Mouth opens: >3 cm Mallampati Score: I Teeth Condition: Caps/Crowns (gold tooth bottom right) Focused Labs Anesthesia Preop lab: CBC WBC 16.5 K/mm3 (4.4-11.0) H 11/20/24 07:44 5 RBC 4.10 M/mm3 (4.6-6.2) L 11/20/24 07:44 11/20/24 Hgb 13.2 g/dL (13.0-16.5) 11/20/24 07:44 11/20/24 Hct 40.7 % (40-54) 11/20/24 07:44 11/20/24 Plt Count 173 K/mm3 (150-450) 11/20/24 07:44 11/20/24 CHEMISTRY Potassium 3.7 mmol/L (3.5-5.1) 11/20/24 07:44 11/20/24 Sodium 138 mmol/L (136-145) 11/20/24 07:44 11/20/24 Magnesium 2.3 mg/dL (1.6-2.6) 11/20/24 07:44 11/20/24 Phosphorus 1.8 mg/dL (2.5-4.9) L 11/20/24 07:44 11/20/24 BUN 20 mg/dL (7-18) H 11/20/24 07:44 11/20/24 Creatinine 0.66 mg/dL (0.70-1.30) L 11/20/24 07:44 Glucose 82 mg/dL (74-106) 11/20/24 07:44 11/20/24 TSH 6.410 uIU/mL (0.300-4.200) H 12/19/24 16:53 COAG PT 14.6 SECONDS (11.7-14.9) 10/24/24 14:40 Pre-Assessment Diagnosis/Proposed Procedure Planned Operative Procedure(s): LAPAROSCOPIC CHOLESYECTOMY WITH IOC Anesthesia History Anesthesia History - bun icer: Anesthesia History - bun icer Hx Hospitalization Yes: [facility] 12/19/24 16:08 Any Problems With Anesthesia No 12/19/24 16:08 Cholinesterase deficiency No 12/19/24 16:08 You/Your Family Experience No 12/19/24 16:08 fever (hyperthermia) with Relationship Recent Exposure to Contagious No 12/25/24 06:42 Disease Does patient have nerve No 12/19/24 16:08 stimulator Patient instructed to have device shut off --Does patient have Pacemaker No 12/25/24 06:42 or ICD? When Was Last Pacemaker Check QUESTION #4 FULL TEXT: You/Your Family Experience fever (hyperthermia) with Anesthesia Last Oral Intake Last Oral intake: Last Oral Intake NPO since 18:00 12/25/24 06:42 Meds taken in AM with sips of No 12/25/24 06:42 water? Meds patient instructed to take am of surgery PONV PONV - bun icer: PONV - bun icer Female No 12/19/24 16:08 HX of Motion Sickness No 12/19/24 16:08 HX of N/V After Surgery No 12/19/24 16:08 Non-Smoker Yes 12/19/24 16:08 Duration of Surgery greater Yes 12/19/24 16:08 than 60 minutes Number of Risk Factors 2 12/19/24 16:08 PONV Score Moderate Risk 12/19/24 16:08 Height & Weight Height & Weight: Anesthesia: Height & Weight Height 5 ft 8 in 12/25/24 06:42 Weight: 73 kg 12/25/24 06:42 Body Mass Index (BMI) 24.5 12/25/24 06:42 Respiratory Assessment Respiratory Assessment - bun icer: Respiratory Tract Infection Hx - bun icer Hx Respiratory Tract Infection No 12/19/24 16:08 STOP Sleep Apnea STOP Sleep Apnea - bun icer: STOP Sleep Apnea - bun icer Hx Hypertension No 12/19/24 16:08 Hx Sleep Apnea No 12/19/24 16:08 CPAP BIPAP Do you snore loudly (louder No 12/19/24 16:08 than talking or can be heard Do you often feel tired/ No 12/19/24 16:08 fatigued/ sleepy during daytime? Has anyone observed you stop No 12/19/24 16:08 breathing during sleep? STOP Results Negative 12/19/24 16:08 QUESTION #5 FULL TEXT : Do you snore loudly (louder than talking or can be heard through closeddoors)? 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 Specify any problems Hx of Preganancy in last 3 N/A 12/19/24 16:08 Months Nurse Filling Out Transfusion [id number] 12/19/24 16:08 & Questions: Date: 12/19/24 12/19/24 16:08 Time: 16:12 12/19/24 16:08 Patient unable to answer at this time (ie. confused, unrespo /Reproduction History /Reproductive History - bun icer: /Reproductive Hx- bun icer Hx Now Gestational Age (in weeks): EDC: Hx Hx Para Hx Section SAB Active Medications Active Medications: Current Medications Generic Name Dose Route Start Last Admin Trade Name Freq PRN Reason Stop Dose Admin Cefotetan Disodium 2 gm/ 100 mls @ 200 mls/hr 12/25/24 07:30 Sodium Chloride IV 12/25/24 07:59 PREOP ONE Sodium Chloride 1,000 mls @ 15 mls/hr 12/25/24 06:15 IV 12/30/24 19:34 .Q48H [facility] Protocol PFSH Medical History (Updated 12/19/24 @ 16:15 by Fadi Stiles) Wears glasses Non-smoker Hypertension Right inguinal hernia Hypothyroid Nocturia Internal hemorrhoids GERD (gastroesophageal reflux disease) Erectile dysfunction Diverticulosis Home Medications ?Medication ?Instructions ?Recorded ?Last Taken ?Type acetaminophen 325 mg tablet 650 mg (2 x 325 mg) PO Q6H PRN PRN 11/20/24 Unknown Rx Pain 1-10 Or Fever #0 tabs geriatric oygtvvki-nexz-jdmf 1 tab PO QDAY 12/12/24 Un known History levothyroxine 125 mcg capsule 125 mcg PO QDAY 12/12/24 12/16/24 History Allergy/AdvReac Type Severity Reaction Status Date / Time No Known Allergies Allergy Verified 12/19/24 16:04 Family History Mother Asthma Father Heart disease High cholesterol Surgical History History of ERCP S/P right inguinal hernia repair History of hydrocelectomy Hx of colonoscopy Social History Smoking Status: Never smoker second hand exposure: No alcohol intake: never substance use type: does not use caffeine: Yes what type of physical activity do you participate in: walking, aerobics and weight training frequency: daily Review of Systems (Anesthesia) ROS Narrative System reviewed and no additional complaints, except as documented. Physical Exam Const oriented x3 12/25/24 0730 ero PASSENGER AGENT> Date _ Jorge Alberto Bass PASSENGER AGENT Cosigner Signature: Date CC: ~ Signed [facility]03-11-2025 History and physical note [facility] Medical Records Department [address] [place] [address] History & Physical Exam 03/09/10 701 MR#: [id number] Acct: [id number] Name: RUSSELL VAUGHN Rep #:[id number] : 1945 79 From: Mike king MD PCP: Dr. Efrain Peters, DO Status:[facility] Location: [place] [address] History and Physical Date of Admission: 12/25/24 History and Physical Date of Admission: 12/18/24 Intake Vital Signs 11/19/2508:42 12/12/2512:43 Height 5 ft 8 in 5 ft 8 in Weight: 163 lb BMI 24.7 BP 115/76 Blood Pressure Location Rt brachial Position Sitting Respiration 17 Pulse 82 Pulse Source Monitor Pulse Oximetry (%) 96 Oxygen Delivery Method room air Intake Visit Reasons: GALLBLADDER Chief Complaint: gallbladder and colonoscopy Is patient in pain?: Yes Allergies No Known Allergies Allergy (Verified 12/12/24 13:44) Medications ?Medication ?Instructions ?Recorded ?Confirmed ?Type acetaminophen 325 mg tablet 650 mg (2 x 325 mg) PO Q6H PRN PRN 11/2012/12/24 Rx Pain 1-10 Or Fever #0 tabs geriatric xldnpelh-fbza-ezal 1 tab PO QDAY 12/12/24 12/12/24 History levothyroxine 125 mcg capsule 125 mcg PO QDAY 12/12/24 12/12/24 Histor y Have you fallen in the past year?: No PFSH Medical History (Updated 12/12/24 @ 14:[address] Mike Malagon MD) Non-smoker Hypertension Right inguinal hernia Hypothyroid Nocturia Internal hemorrhoids GERD (gastroesophageal reflux disease) Erectile dysfunction Diverticulosis Surgical History S/P right inguinal hernia repair History of hydrocelectomy Hx of colonoscopy Family History Mother AsthmaFather Heart disease High cholesterol Social History Smoking Status: Never smoker second hand exposure: No alcohol intake: never substance use type: does not use caffeine: Yes what type of physical activity do you participate in: walking, aerobics and weight training frequency: daily HPI HPI HPI: Patient is a 79-year-old male following up after hospitalization. The patient is here for 2 issues.First issue is his gallbladder and the second is a colonoscopy. He notes that for several months hehas been having difficulty passing stool and he has noted a change in stool caliber. His last colonoscopy was 8 years ago. He denies blood in the stool. He does have abdominal pain. The patient is also being worked up for a stricture in his common bile duct. Hewent to [facility] and had a EUS with biopsy of a 10 x 11 mm lesion in the distalcommon bile duct. The biopsy came back benign as did the brushings. Patient still complaining of right upper quadrant pain. The patient had metal common bile duct stent placed by Dr. Myers during his last hospitalization. ROS General General: No weight change, appetite, fatigue, colon cancer, breast cancer or weakness HEENT HEENT: No difficulty swallowing, eye injury, eye surgery, swollen glands or hoarseness Endo Endocrine: Yes thyroid disease; No diabetes mellitus, thyroid cancer, Hair loss, heat intolerance or cold intolerance Skin Skin: No rash or changing moles Musc Musculoskeletal: No back problems, arthritis, rheumatoid arthritis, gout or joint pain Cardio Cardiovascular: No murmur, pacemaker, heart disease, atrial fibrillation, high blood pressure, heart attack, heart stent, palpitations, shortness of breat withexertion or chest pain Psych Psychiatric: No depression, anxiety or hearing voices Resp Respiratory: No shortness of breath, No sleep apnea, No cough, No COPD, No asthma, No emphysema andNo wheezing Gastro Gastrointestinal: Yes abdominal pain, No nausea or vomiting, No diarrhea, Yes constipation, No blood in stool, Yes acid reflux, No hemorrhoids, No ulcers, Yesgallbladder problem and No black,tarry stools Margarito Hematologic: No blood thinners, No blood disorders, No bleeding, No anemia and No blood clots Neuro Neurologic: No system reviewed and no additional complaints, except as documented, No as per HPI, No abnormal gait, No abnormal hearing, No abnormal movements, No abnormal speech, No behavioral changes, No burning sensations, No confusion, No convulsions, No disequilibrium, No dizziness, No localized weakness, No frequent falls, No headache(s), No lack of coordination, No loss ofvision, No memoryloss, No numbness, No other visual disturbances, No radicular pain, No restless legs, No sensory deficit, No syncope, No tingling, No tremor(s), No weakness and No other Exam Const General: cooperative Orientation: alert and oriented x3 HENMT Head: normal to inspection Neck Neck: normal visual inspection and full ROM Chest Chest palpation & inspection: normal inspection of the chest Resp Effort & Inspection: normal respiratory effort Auscultation: clear to auscultation bilaterally Cardio Rate: regular rate Rhythm: regular rhythm GI Inspection: non-distended Palpation: soft and tender in the RUQ Skin General: no rashes or lesions noted Neuro General: patient alert and patient oriented x3 Extrem General: full ROM Psych Appearance: grossly normal Mental Status: mental status grossly normal Assessment and Plan Assessment and Plan (1) Change in stool caliber: Status: Acute Plan: Patient is having change in stool caliber and request colonoscopy to evaluate susie thinks he has a partial blockage. He reports that is difficult to pass stools and the caliber has changed. I explained endoscopy in detail to the patient. I explained the risks including but not limited to stroke or heart attack with anesthesia, perforation of the GI tract, bleeding, infection. I explained that anyof these could necessitate further emergency surgery. The patient understands and all questions were answered sufficiently. The patient wishes to proceed with procedure. 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 I will proceed with laparoscopic cholecystectomy after colonoscopy. I discussed the procedure in detail with the patient. I discussed the risks, benefits, and alternatives of the procedure. I discussed the risks including but not limited to bleeding, infection, injury to surrounding organs such as theliver, bile duct, bowels. I did discuss the possibility of havingto convert jade open procedure as well as the possibility that if any injuries occurred this may necessitate further surgery at a tertiary care center. Mike Malagon MD Pager: [facility] [address] [place] [address], [address] [place] [address] Office: I have examined the patient and the H&P has been reviewed. There are no clinicalchanges since date of exam. 12/25/24 0702 Cosigner Signature (if applicable): CC: Dr. Mike Malagon MD; Dr. Efrain Peters, DO~ Signed [facility]03-11-2025 [facility]03-04-2025 [facility]02-24-2025 Telephone encounter Note* Telephone Encounter - Brittany Maurer LPN - 12/10/2024 4:12 PM EST Patient calling his Levothyroxine rx was sent locally by mistake, which is more expensive for him. Patient asking to have rx sent to [facility] pharmacy. Reset rx to file to [facility] pharmacy. Please advise The patient has been identified by name and date of : Yes Caregiver verified no other encounters exist for this prescription request: Yes Caregiver confirmed with patient/requestor that no other refills are due, in the near future, with this provider at this time: Yes The last office visit in the department: 12/10/2024 Does the patient have a future office visit with this provider/department: Yes 06/10/2025 Requested Prescriptions Pending Prescriptions Disp Refills levothyroxine (LEVOXYL) 125 mcg tablet 90 tablet 3 Sig: Take 1 tablet by mouth once daily. Take on empty stomach. For thyroid. Brittany Maurer LPN December 10, 2024 4:[address] [facility]02-24-2025 Miscellaneous Notes* Telephone Encounter - Brittany Maurer LPN - 12/10/2024 4:12 PM EST Patient calling his Levothyroxine rx was sent locally by mistake, which is more expensive for him. Patient asking to have rx sent to [facility] pharmacy. Reset rx to file to [facility] pharmacy. Please advise The patient has been identified by name and date of : Yes Caregiver verified no other encounters exist for this prescription request: Yes Caregiver confirmed with patient/requestor that no other refills are due, in the near future, with this provider at this time: Yes The last office visit in the department: 12/10/2024 Does the patient have a future office visit with this provider/department: Yes 06/10/2025 Requested Prescriptions Pending Prescriptions Disp Refills levothyroxine (LEVOXYL) 125 mcg tablet 90 tablet 3 Sig: Take 1 tablet by mouth once daily. Take on empty stomach. For thyroid. Brittany Maurer LPN December 10, 2024 4:14 PM documented in [facility] History of Present illness Narrative* Efrain Peters, DO - 12/10/2024 8:21 AM EST CC: Russell Vaughn is a 79 year old male who presents to the office for follow up HPI: Right shoulder pain, right shoulder xray and MRI shoulder showed rotator cuff tendinitis and bursitis. He has been doing band work and light weight work with his shoulders. Had symptoms of loose yellow stool. Had urine testing and urine culture which was all normal. Had stool studies and pancreatic testing with stool and found to have severe pancreatic insufficiency. Hewas referred to Dr. Myers/Geothermal Operations Engineer. Had bile duct surgery and gallstones removed due to g allstone pancreatitis and pancreatic stent placement on and then was back in the hospital the next few days. Was seen by Dr. Valentin General surgeon- had to have the pancreatic stent removed and a new stent placed. He was diagnosed with an infection and concerns for Sepsis. He was sent [facility] for additional testing with Dr. Brayan Herrera. He had an endoscopic ultrasoundwhich was normal. Only issues are that he needs a cholecystectomy. He has a follow up in [address] Valentin General surgeon. Last colonoscopy in 2018- he would like this to be repeated due to his bowel changes recently IFG, diet controlled in the past Hypothyroidism, taking levothyroxine, has fatigue HTN, well controlled, no concerns. PAST MEDICAL HISTORY Diagnosis Date Diverticulosis of colon (without mention of hemorrhage) Erectile dysfunction GERD (gastroesophageal reflux disease) Internal hemorrhoids without mention of complication Nocturia Other and unspecified hyperlipidemia Prediabetes Unspecified essential hypertension Unspecified hypothyroidism PAST SURGICAL HISTORY Procedure Laterality Date COLONOSCOPY FLX DX W/COLLJ SPEC WHEN PFRMD 12/09/1999 FLEXIBLE SIGMOIDOSCOPY COLONOSCOPY FLX DX W/COLLJ SPEC WHEN PFRMD 10/02/07 PAST SURGICAL HISTORY OF hydrocele repair REPAIR INGUINAL HERNIA Right 10/22/2019 Dr. Annel Bradshaw, [facility] Current Outpatient Medications Medication Sig levothyroxine (LEVOXYL) 125 mcg tablet Take 1 tablet by mouth once daily. Take on empty stomach. For thyroid. vvcyjd-inozpbff-ntcpcih (CREON 3) 3,000-9,500- 15,000 unit delayed release capsule Take 1 capsule by mouth with meals and at bedtime. hydrocortisone (PROCTOZONE-HC) 2.5 % rectal cream 1 application by RECTAL route as needed. Bovpshlegksxp-Gitpqmrz-Mhwdws (CENTRUM SILVER) Tab Take 1 tablet by mouth once daily. No current facility-administered medications for this visit. ALLERGIES No Known Allergies Social History Tobacco Use Smoking status: Never Smokeless tobacco: Never Substance Use Topics Alcohol use: No Drug use: No ROS: See HPI PE: BP 134/80 Pulse 80 Temp (Src) 97 (Left Tympanic) Resp 16 Ht 5' 7.323 (1.71m) Wt 163 lb (73.9kg) BMI 25.29 kg/(m^2). Gen: A&OX3, NAD, non-toxic appearing HEENT: PERRLA, EOMs intact b/l, nares without drainage, pharynx without erythema, exudate, lesions,or drainage. Uvula midline. MMM, Neck: No LAD, no thyromegaly, no meningismus. CV: RRR, no murmur, normal s1s2 Lungs: CTA b/l, no wheezing Skin: No rashes, lesions, or wounds on exposed skin. Abd: soft, + TTP mid right abdomen without mass, normal BS, no masses No edema, normal pulses ASSESSMENT/PLAN: 1. Medicare annual wellness visit, subsequent - ICD9: V70.0, ICD10: Z00.00 (primary diagnosis) - Counseled on healthy diet and regular exercise - Risks/benefits of prostate cancer screening discussed. screening PSA ordered 2. Altered bowel function - ICD9: 787.99, ICD10: R19.8 Labs as ordered F/u with General surgeon and Geothermal Operations Engineer Dr. Myers- needs to consider colonoscopy and need for cholecystectomy likely - COLONOSCOPY DIAGNOSTIC - COMPREHENSIVE METABOLIC PANEL - COMPLETE BLOOD COUNT AND DIFFERENTIAL - THYROID STIMULATING HORMONE 3. Pancreatic insufficiency - ICD9: 577.8, ICD10: K86.89 Labs as ordered F/u with General surgeon and Geothermal Operations Engineer Dr. Myers- needs to consider colonoscopy and need for cholecystectomy likely - THYROID STIMULATING HORMONE - T4 FREE/FREE THYROXINE 4. Generalized abdominal pain - ICD9: 789.07, ICD10: R10.84 Labs as ordered F/u with General surgeon and Geothermal Operations Engineer Dr. Myers- needs to consider colonoscopy and need for cholecystectomy likely - THYROID STIMULATING HORMONE - T4 FREE/FREE THYROXINE 5. Mixed hyperlipidemia - ICD9: 272.2, ICD10: E78.2 - Control undetermined, due for labs - Continue current medications - Counseled on healthy diet and regular exercise - LIPID PANEL BASIC - COMPREHENSIVE METABOLIC PANEL - COMPLETE BLOOD COUNT AND DIFFERENTIAL 6. Essential hypertension - ICD9: 401.9, ICD10: I10 - Controlled - Continue current medications - Recommend home blood pressure monitoring, to bring results to next visit - Encouraged sodium restriction, DASH or Mediterranean diet - Recommend regular aerobic exercise 7. IFG (impaired fasting glucose) - ICD9: 790.21, ICD10: R73.01 Labs as ordered Diet controlled. - HEMOGLOBIN A1C 8. Acquired hypothyroidism - ICD9: 244.9, ICD10: E03.9 - Instructed patient on importance of taking on an empty stomach either first thing in the morning or at bedtime. - continue current dose of Synthroid 9. Gastroesophageal reflux disease without esophagitis - ICD9: 530.81, ICD10: K21.9 - Discussed lifestyle modifications including losing weight, limiting caffeine, no meals three hours before sleep, and head of bed elevation 10. Vitamin D deficiency - ICD9: 268.9, ICD10: E55.9 - VITAMIN D 25 HYDROXY 11. Vitamin B12 deficiency - ICD9: 266.2, ICD10: E53.8 - VITAMIN B12 12. Screening for prostate cancer - ICD9: V76.44, ICD10: Z12.5 - Counseled on healthy diet and regular exercise - Risks/benefits of prostate cancer screening discussed. screening PSA ordered - PSA/PROSTATE SPECIFIC ANTIGEN SCREENING Efrain Peters DO Return if no improvement. Follow up with Efrain Peters DO. To ER if develops chest pain, shortness of breath. Discussed risks, benefits, alternatives, and potential side effects of medications. Patient/Guardian expressed understanding and agreed with the plan. See patient instructions. Efrain Peters DO [address] [place] [address] documented [facility] [address] [facility] NotePatient: Russell Vaughn Procedure Summary Date: 12/05/24 Room / Location: [place] [address] / [facility] Gastroenterology Anesthesia Start: 140 Anesthesia Stop: 1500 Procedure: ESOPHAGOSCOPIC ULTRASOUND EXAM Diagnosis: Obstruction of bile duct Providers: Brayan Herrera MD Responsible Provider: Darlene Lunsford MD Anesthesia Type: TIVA ASA Status: 2 Anesthesia Type: TIVA Vitals Value Taken Time BP 123/80 12/05/24 1459 Temp 36.6 ?C (97.8 ?F) 12/05/24 1459 Pulse 65 12/05/24 1459 Resp 16 12/05/24 1459 SpO2 98 % 12/05/24 1459 Anesthesia Post Evaluation Patient location during evaluation: PACU Patient participation: complete - patient participated Level of consciousness: obtunded/minimal responses Pain management: satisfactory to patient Airway patency: patent Dental Injury: no Cardiovascular status: acceptable, blood pressure returned to baseline and hemodynamically stable Respiratory status: acceptable and spontaneous ventilation Hydration status: euvolemic Nausea/Vomiting: controlled No notable events documented. Patient can be discharged once all PACU criteria has been met.[facility]02-19-2025 NotePatient: Russell Vaughn Procedure Summary Date: 12/05/24 Room / Location: [place] [address] / [facility] Gastroenterology Anesthesia Start: 1405 Anesthesia Stop: 1500 Procedure: ESOPHAGOSCOPIC ULTRASOUND EXAM Diagnosis: Obstruction of bile duct Providers: Brayan Herrera MD Responsible Provider: Darlene Lunsford MD Anesthesia Type: TIVA ASA Status: 2 Anesthesia Type: TIVA Vitals Value Taken Time BP 123/80 12/05/24 1459 Temp 36.6 ?C (97.8 ?F) 12/05/24 1459 Pulse 65 12/05/24 1459 Resp 16 12/05/24 1459 SpO2 98 % 12/05/24 1459 Anesthesia Post Evaluation Patient location during evaluation: PACU Patient participation: complete - patient participated Level of consciousness: obtunded/minimal responses Pain management: satisfactory to patient Multimodal analgesia pain management approach Airway patency: patent Two or more strategies used to mitigate risk of obstructive sleep apnea Cardiovascular status: acceptable and hemodynamically stable Respiratory status: acceptable Hydration status: acceptable No notable events documented. MIPS #430 PONV Patient did not receive an inhalational anesthetic (XX430) MIPS # 424 Perioperative Temperature Management Anesthesia time was 60 minutes or longer (4255F) Anesthesai administered was General (inhalational or TIVA) or Neuraxial block (X0424) At least one body temperature greater than 95.8F/35.5C achieved within the 30 mins immediately prior to or the 15 minutes immediately following anesthesia end time (G9771) MIPS #477 Multimodal Pain Management Not emergent case Patient was not administered multimodal pain management (G2149) Patient reports no pain in PACU (G2149) MIPS #404 Anesthesiology Smoking Abstinence The patient is not a current smoker (e.g. cigarette, cigar, pipe, e-cigarette/vaping/marijuana) If no stop here (XX404) I completed my handoff to the receiving clinician during which we: 1. Identified the patient 2. Identified the responsible provider 3. Reviewed the pertinent medical history 4. Discussed the surgical course 5. Reviewed intra-op anesthesia management and issues during anesthesia 6. Set expectations for post-procedure period 7. Allowed opportunity for questions and acknowledgement of understanding.[facility]02-19-2025 Nurse Note* Merrick Martines RN - 12/05/2024 2:56 PM EST Specimens verified w/FAYE Barone & sent with her to Cyt[id number] Nurse Note* Merrick Martines RN - 12/05/2024 2:56 PM EST Specimens verified w/FAYE Barone & sent with her to Cytology lab documented in this encounterSFairfield Medical [id number] Note* Op Note - Brayan Herrera MD - 12/05/2024 12:26 PM EST [facility] Name: Russell Vaughn Procedure Date: 12/05/2024 12:26 PM Gender: Male Date of : 1945 Age: 79 Admit Type: Outpatient Note Status: Finalized Endoscopist: Brayan Herrera MD, [id number] Procedure: Upper EUS Indications: Common bile duct stricture found on ERCP This is a 79 y.o. male who is referred by Dr. Quan Myers for further evaluation of RUQ abdominal pain, jaundice and diarrhea. He was started on pancreatic enzymes with improvement in the diarrhea. He had ERCP 10/25/24 with findings of distal biliary stricture and upstream ductal dilation along with bile duct stones. Brushings were obtained and a stent was placed. Brushings returned with atypical cells. Prior CT scan with pancreatic atrophy and dilated bile duct, but no obvious mass or other obstruction. Findings: ENDOSCOPIC FINDING: : The examined esophagus was normal. The Z-line was regular and was found 37 cm from the incisors. A 2 cm hiatal hernia was present. Diffuse moderate inflammation characterized by adherent blood, congestion (edema) and erythema was found in the stomach. The exam of the stomach was otherwise normal. The duodenal bulb, first portion of the duodenum and second portion of the duodenum were normal. ENDOSONOGRAPHIC FINDING: : A round hypoechoic lesion was identified endosonographically in the lower third of the main bile duct. The lesion measured 11 mm by 10 mm in maximal cross-sectional diameter. The outer margins were well-defined. Fine needle biopsy was performed. Color Doppler imaging was utilized prior to needle puncture to confirm a lack of significant vascular structures within the needle path. Three passes were made with the 22 gauge Acquire biopsy needle using a transduodenal approach. A preliminary cytologic examination was performed. Final cytology results are pending. Verification of patient identification for the specimen was done. Estimated blood loss was minimal. One metal stent was visualized endosonographically in the common bile duct. There was extensive artifact from the metal stent, affecting visualization. Many stones were visualized endosonographically in the gallbladder. The stones were round. They were hyperechoic and characterized by shadowing. Pancreatic parenchymal abnormalities were noted in the entire pancreas. These consisted of atrophy. There were no other significant endosonographic abnormalities found in the entire pancreas. There were no endosonographic signs of chronic pancreatitis. No masses, cysts or calcifications were seen in the entire pancreas. The pancreatic duct was well visualized from ampulla to tail, excluding pancreas divisum. The pancreatic duct was regular in contour and measured 1.1 mm at the major papilla, 1.4 mm at the genu and 1.2 mm in the body of the pancreas. A few lymph nodes were visualized with the ultrasound probe in the peripancreatic region and shila hepatis region. The nodes were benign appearing, round and hypoechoic. The first node measured 6 mm by 7 mm. Fine needle biopsy was performed. Color Doppler imaging was utilized prior to needle puncture to confirm a lack of significant vascular structures within the needle path. One pass was made with the 22 gauge Acquire biopsy needle using a transgastric approach. A preliminary cytologic examination was performed. Final cytology results are pending. Verification of patient identification for the specimen was done. Estimated blood loss was minimal. Visualized portions of the liver, spleen, left adrenal gland and left kidney were normal on ultrasound examination. Impression: - Normal esophagus. - 2 cm hiatal hernia. - Diffuse erosive gastritis, characterized by adherent blood, congestion (edema) and erythema. - Normal duodenal bulb, first portion of the duodenum and second portion of the duodenum. - A small 11 mm lesion was found in the lower third of the main bile duct. Fine needle biopsy performed. Possible soft tissue intraductal nodule vs adenoma vs sludge ball. - One metal stent was visualized endosonographically in the common bile duct with significant signal artifact that did affect visualization. - Cholelithiasis was found in the gallbladder. - Pancreatic parenchymal abnormalities consisting of atrophy were noted in the entire pancreas. No ductal dilation or other abnormalities noted. - A few benign appearing lymph nodes were visualized in the peripancreatic region and shila hepatis region. Fine needle biopsy performed of the largest lesion, which was subcentimeter. - Visualized portions of the liver, spleen, left adrenal gland and left kidney were normal on ultrasound examination. Recommendation: - The patient will be observed post-procedure, until all discharge criteria are met. - Discharge patient to home. - Observe patient's clinical course following today's procedure with therapeutic intervention. - Watch for complications post-procedure, including fevers, infection, bleeding and perforation. - Resume regular diet. - Continue present medications. - Await cytology results. If further evaluation is needed, consider repeat EUS once the stent is removed vs SpyGlass cholangioscopy. - Return to Dr. Myers in the GI clinic at appointment to be scheduled for follow-up. - Return to primary care physician as previously scheduled. - The findings and recommendations were discussed with the patient and their spouse. - Patient has a contact number available for emergencies. The signs and symptoms of potential delayed complications were discussed with the patient. Return to normal activities tomorrow. Written discharge instructions were provided to the patient. Referring MD: Quan Myers MD Medicines: Monitored Anesthesia Care Procedure: Pre-Anesthesia Assessment: - Prior to the procedure, a History and Physical was performed, and patient medications and allergies were reviewed. The patient's tolerance of previous anesthesia was also reviewed. The risks and benefits of the procedure and the sedation options and risks were discussed with the patient. All questions were answered, and informed consent was obtained. Prior Anticoagulants: The patient has taken no anticoagulant or antiplatelet agents. ASA Grade Assessment: III - A patient with severe systemic disease. After reviewing the risks and benefits, the patient was deemed in satisfactory condition to undergo the procedure. After obtaining informed consent, the endoscope was passed under direct vision. Throughout the procedure, the patient's blood pressure, pulse, and oxygen saturations were monitored continuously. The Endoscope was introduced through the mouth, and advanced to the second part of duodenum. The Endosonoscope was introduced through the mouth, and advanced to the second part of duodenum. After obtaining informed consent, the endoscope was passed under direct vision. Throughout the procedure, the patient's blood pressure, pulse, and oxygen saturations were monitored continuously.The upper GI endoscopy was accomplished without difficulty. The patient tolerated the procedure well. Complications: No immediate complications. Procedure Code(s): --- Professional --- 55997, Esophagogastroduodenoscopy, flexible, transoral; with transendoscopic ultrasound-guided intramural or transmural fine needle aspiration/biopsy(s), (includes endoscopic ultrasound examination limited to the esophagus, stomach or duodenum, and adjacent structures) --- Technical --- 59222, Esophagogastroduodenoscopy, flexible, transoral; with transendoscopic ultrasound-guided intramural or transmural fine needle aspiration/biopsy(s), (includes endoscopic ultrasound examination limited to the esophagus, stomach or duodenum, and adjacent structures) Diagnosis Code(s): --- Professional --- K44.9, Diaphragmatic hernia without obstruction or gangrene K29.70, Gastritis, unspecified, without bleeding K86.9, Disease of pancreas, unspecified K83.1, Obstruction of bile duct K83.8, Other specified diseases of biliary tract --- Technical --- K44.9, Diaphragmatic hernia without obstruction or gangrene K29.70, Gastritis, unspecified, without bleeding K86.9, Disease of pancreas, unspecified K83.1, Obstruction of bile duct K83.8, Other specified diseases of biliary tract CPT copyright 2021 [employer]. All rights reserved. The codes documented in this report are preliminary and upon hydroponics grower review may be revised to meet current compliance requirements. Attending Participation: I personally performed the entire procedure. Brayan Herrera MD 12/05/2024 5:36:10 PM This report has been signed electronically. 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 male who is referred by Dr. Quan Myres for further evaluation of RUQ abdominal pain, jaundice and diarrhea. He was started on pancreatic enzymes with improvement in the diarrhea. He had ERCP 10/25/24 with findings of distal biliary stricture and upstream ductal dilation along with bile duct stones. Brushings were obtained and a stent was placed. Brushings returned with atypical cells. Prior CT scan with pancreatic atrophy and dilated bile duct, but no obvious mass or other obstruction. Findings: ENDOSCOPIC FINDING: : The examined esophagus was normal. The Z-line was regular and was found 37 cm from the incisors. A 2 cm hiatal hernia was present. Diffuse moderate inflammation characterized by adherent blood, congestion (edema) and erythema was found in the stomach. The exam of the stomach was otherwise normal. The duodenal bulb, first portion of the duodenum and second portion of the duodenum were normal. ENDOSONOGRAPHIC FINDING: : A round hypoechoic lesion was identified endosonographically in the lower third of the main bile duct. The lesion measured 11 mm by 10 mm in maximal cross-sectional diameter. The outer margins were well-defined. Fine needle biopsy was performed. Color Doppler imaging was utilized prior to needle puncture to confirm a lack of significant vascular structures within the needle path. Three passes were made with the 22 gauge Acquire biopsy needle using a transduodenal approach. A preliminary cytologic examination was performed. Final cytology results are pending. Verification of patient identification for the specimen was done. Estimated blood loss was minimal. One metal stent was visualized endosonographically in the common bile duct. There was extensive artifact from the metal stent, affecting visualization. Many stones were visualized endosonographically in the gallbladder. The stones were round. They were hyperechoic and characterized by shadowing. Pancreatic parenchymal abnormalities were noted in the entire pancreas. These consisted of atrophy. There were no other significant endosonographic abnormalities found in the entire pancreas. There were no endosonographic signs of chronic pancreatitis. No masses, cysts or calcifications were seen in the entire pancreas. The pancreatic duct was well visualized from ampulla to tail, excluding pancreas divisum. The pancreatic duct was regular in contour and measured 1.1 mm at the major papilla, 1.4 mm at the genu and 1.2 mm in the body of the pancreas. A few lymph nodes were visualized with the ultrasound probe in the peripancreatic region and shila hepatis region. The nodes were benign appearing, round and hypoechoic. The first node measured 6 mm by 7 mm. Fine needle biopsy was performed. Color Doppler imaging was utilized prior to needle puncture to confirm a lack of significant vascular structures within the needle path. One pass was made with the 22 gauge Acquire biopsy needle using a transgastric approach. A preliminary cytologic examination was performed. Final cytology results are pending. Verification of patient identification for the specimen was done. Estimated blood loss was minimal. Visualized portions of the liver, spleen, left adrenal gland and left kidney were normal on ultrasound examination. Impression: - Normal esophagus. - 2 cm hiatal hernia. - Diffuse erosive gastritis, characterized by adherent blood, congestion (edema) and erythema. - Normal duodenal bulb, first portion of the duodenum and second portion of the duodenum. - A small 11 mm lesion was found in the lower third of the main bile duct. Fine needle biopsy performed. Possible soft tissue intraductal nodule vs adenoma vs sludge ball. - One metal stent was visualized endosonographically in the common bile duct with significant signal artifact that did affect visualization. - Cholelithiasis was found in the gallbladder. - Pancreatic parenchymal abnormalities consisting of atrophy were noted in the entire pancreas. No ductal dilation or other abnormalities noted. - A few benign appearing lymph nodes were visualized in the peripancreatic region and shila hepatis region. Fine needle biopsy performed of the largest lesion, which was subcentimeter. - Visualized portions of the liver, spleen, left adrenal gland and left kidney were normal on ultrasound examination. Recommendation: - The patient will be observed post-procedure, until all discharge criteria are met. - Discharge patient to home. - Observe patient's clinical course following today's procedure with therapeutic intervention. - Watch for complications post-procedure, including fevers, infection, bleeding and perforation. - Resume regular diet. - Continue present medications. - Await cytology results. If further evaluation is needed, consider repeat EUS once the stent is removed vs SpyGlass cholangioscopy. - Return to Dr. Myers in the GI clinic at appointment to be scheduled for follow-up. - Return to primary care physician as previously scheduled. - The findings and recommendations were discussed with the patient and their spouse. - Patient has a contact number available for emergencies. The signs and symptoms of potential delayed complications were discussed with the patient. Return to normal activities tomorrow. Written discharge instructions were provided to the patient. Referring MD: Quan Myers MD Medicines: Monitored Anesthesia Care Procedure: Pre-Anesthesia Assessment: - Prior to the procedure, a History and Physical was performed, and patient medications and allergies were reviewed. The patient's tolerance of previous anesthesia was also reviewed. The risks and benefits of the procedure and the sedation options and risks were discussed with the patient. All questions were answered, and informed consent was obtained. Prior Anticoagulants: The patient has taken no anticoagulant or antiplatelet agents. ASA Grade Assessment: III - A patient with severe systemic disease. After reviewing the risks and benefits, the patient was deemed in satisfactory condition to undergo the procedure. After obtaining informed consent, the endoscope was passed under direct vision. Throughout the procedure, the patient's blood pressure, pulse, and oxygen saturations were monitored continuously. The Endoscope was introduced through the mouth, and advanced to the second part of duodenum. The Endosonoscope was introduced through the mouth, and advanced to the second part of duodenum. After obtaining informed consent, the endoscope was passed under direct vision. Throughout the procedure, the patient's blood pressure, pulse, and oxygen saturations were monitored continuously.The upper GI endoscopy was accomplished without difficulty. The patient tolerated the procedure well. Complications: No immediate complications. Procedure Code(s): --- Professional --- 77485, Esophagogastroduodenoscopy, flexible, transoral; with transendoscopic ultrasound-guided intramural or transmural fine needle aspiration/biopsy(s), (includes endoscopic ultrasound examination limited to the esophagus, stomach or duodenum, and adjacent structures) --- Technical --- 18197, Esophagogastroduodenoscopy, flexible, transoral; with transendoscopic ultrasound-guided intramural or transmural fine needle aspiration/biopsy(s), (includes endoscopic ultrasound examination limited to the esophagus, stomach or duodenum, and adjacent structures) Diagnosis Code(s): --- Professional --- K44.9, Diaphragmatic hernia without obstruction or gangrene K29.70, Gastritis, unspecified, without bleeding K86.9, Disease of pancreas, unspecified K83.1, Obstruction of bile duct K83.8, Other specified diseases of biliary tract --- Technical --- K44.9, Diaphragmatic hernia without obstruction or gangrene K29.70, Gastritis, unspecified, without bleeding K86.9, Disease of pancreas, unspecified K83.1, Obstruction of bile duct K83.8, Other specified diseases of biliary tract CPT copyright 2021 [employer]. All rights reserved. The codes documented in this report are preliminary and upon hydroponics grower review may be revised to meet current compliance requirements. Attending Participation: I personally performed the entire procedure. Brayan Herrera MD 12/05/2024 5:36:10 PM This report has been signed electronically. 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 male who is referred by Dr. Quan Myers for further evaluation of RUQ abdominal pain, jaundice and diarrhea. He was started on pancreatic enzymes with improvement in the diarrhea. He had ERCP 10/25/24 with findings of distal biliary stricture and upstream ductal dilation along with bile duct stones. Brushings were obtained and a stent was placed. Brushings returned with atypical cells. Prior CT scan with pancreatic atrophy and dilated bile duct, but no obvious mass or other obstruction. Findings: ENDOSCOPIC FINDING: : The examined esophagus was normal. The Z-line was regular and was found 37 cm from the incisors. A 2 cm hiatal hernia was present. Diffuse moderate inflammation characterized by adherent blood, congestion (edema) and erythema was found in the stomach. The exam of the stomach was otherwise normal. The duodenal bulb, first portion of the duodenum and second portion of the duodenum were normal. ENDOSONOGRAPHIC FINDING: : A round hypoechoic lesion was identified endosonographically in the lower third of the main bile duct. The lesion measured 11 mm by 10 mm in maximal cross-sectional diameter. The outer margins were well-defined. Fine needle biopsy was performed. Color Doppler imaging was utilized prior to needle puncture to confirm a lack of significant vascular structures within the needle path. Three passes were made with the 22 gauge Acquire biopsy needle using a transduodenal approach. A preliminary cytologic examination was performed. Final cytology results are pending. Verification of patient identification for the specimen was done. Estimated blood loss was minimal. One metal stent was visualized endosonographically in the common bile duct. There was extensive artifact from the metal stent, affecting visualization. Many stones were visualized endosonographically in the gallbladder. The stones were round. They were hyperechoic and characterized by shadowing. Pancreatic parenchymal abnormalities were noted in the entire pancreas. These consisted of atrophy. There were no other significant endosonographic abnormalities found in the entire pancreas. There were no endosonographic signs of chronic pancreatitis. No masses, cysts or calcifications were seen in the entire pancreas. The pancreatic duct was well visualized from ampulla to tail, excluding pancreas divisum. The pancreatic duct was regular in contour and measured 1.1 mm at the major papilla, 1.4 mm at the genu and 1.2 mm in the body of the pancreas. A few lymph nodes were visualized with the ultrasound probe in the peripancreatic region and shila hepatis region. The nodes were benign appearing, round and hypoechoic. The first node measured 6 mm by 7 mm. Fine needle biopsy was performed. Color Doppler imaging was utilized prior to needle puncture to confirm a lack of significant vascular structures within the needle path. One pass was made with the 22 gauge Acquire biopsy needle using a transgastric approach. A preliminary cytologic examination was performed. Final cytology results are pending. Verification of patient identification for the specimen was done. Estimated blood loss was minimal. Visualized portions of the liver, spleen, left adrenal gland and left kidney were normal on ultrasound examination. Impression: - Normal esophagus. - 2 cm hiatal hernia. - Diffuse erosive gastritis, characterized by adherent blood, congestion (edema) and erythema. - Normal duodenal bulb, first portion of the duodenum and second portion of the duodenum. - A small 11 mm lesion was found in the lower third of the main bile duct. Fine needle biopsy performed. Possible soft tissue intraductal nodule vs adenoma vs sludge ball. - One metal stent was visualized endosonographically in the common bile duct with significant signal artifact that did affect visualization. - Cholelithiasis was found in the gallbladder. - Pancreatic parenchymal abnormalities consisting of atrophy were noted in the entire pancreas. No ductal dilation or other abnormalities noted. - A few benign appearing lymph nodes were visualized in the peripancreatic region and shila hepatis region. Fine needle biopsy performed of the largest lesion, which was subcentimeter. - Visualized portions of the liver, spleen, left adrenal gland and left kidney were normal on ultrasound examination. Recommendation: - The patient will be observed post-procedure, until all discharge criteria are met. - Discharge patient to home. 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 male who is referred by Dr. Quan Myers for further evaluation of RUQ abdominal pain, jaundice and diarrhea. He was started on pancreatic enzymes with improvement in the diarrhea. He had ERCP 10/25/24 with findings of distal biliary stricture and upstream ductal dilation along with bile duct stones. Brushings were obtained and a stent was placed. Brushings returned with atypical cells. Prior CT scan with pancreatic atrophy and dilated bile duct, but no obvious mass or other obstruction. Findings: ENDOSCOPIC FINDING: : The examined esophagus was normal. The Z-line was regular and was found 37 cm from the incisors. A 2 cm hiatal hernia was present. Diffuse moderate inflammation characterized by adherent blood, congestion (edema) and erythema was found in the stomach. The exam of the stomach was otherwise normal. The duodenal bulb, first portion of the duodenum and second portion of the duodenum were normal. ENDOSONOGRAPHIC FINDING: : A round hypoechoic lesion was identified endosonographically in the lower third of the main bile duct. The lesion measured 11 mm by 10 mm in maximal cross-sectional diameter. The outer margins were well-defined. Fine needle biopsy was performed. Color Doppler imaging was utilized prior to needle puncture to confirm a lack of significant vascular structures within the needle path. Three passes were made with the 22 gauge Acquire biopsy needle using a transduodenal approach. A preliminary cytologic examination was performed. Final cytology results are pending. Verification of patient identification for the specimen was done. Estimated blood loss was minimal. One metal stent was visualized endosonographically in the common bile duct. There was extensive artifact from the metal stent, affecting visualization. Many stones were visualized endosonographically in the gallbladder. The stones were round. They were hyperechoic and characterized by shadowing. Pancreatic parenchymal abnormalities were noted in the entire pancreas. These consisted of atrophy. There were no other significant endosonographic abnormalities found in the entire pancreas. There were no endosonographic signs of chronic pancreatitis. No masses, cysts or calcifications were seen in the entire pancreas. The pancreatic duct was well visualized from ampulla to tail, excluding pancreas divisum. The pancreatic duct was regular in contour and measured 1.1 mm at the major papilla, 1.4 mm at the genu and 1.2 mm in the body of the pancreas. A few lymph nodes were visualized with the ultrasound probe in the peripancreatic region and shila hepatis region. The nodes were benign appearing, round and hypoechoic. The first node measured 6 mm by 7 mm. Fine needle biopsy was performed. Color Doppler imaging was utilized prior to needle puncture to confirm a lack of significant vascular structures within the needle path. One pass was made with the 22 gauge Acquire biopsy needle using a transgastric approach. A preliminary cytologic examination was performed. Final cytology results are pending. Verification of patient identification for the specimen was done. Estimated blood loss was minimal. Visualized portions of the liver, spleen, left adrenal gland and left kidney were normal on ultrasound examination. Impression: - Normal esophagus. - 2 cm hiatal hernia. - Diffuse erosive gastritis, characterized by adherent blood, congestion (edema) and erythema. - Normal duodenal bulb, first portion of the duodenum and second portion of the duodenum. - A small 11 mm lesion was found in the lower third of the main bile duct. Fine needle biopsy performed. Possible soft tissue intraductal nodule vs adenoma vs sludge ball. - One metal stent was visualized endosonographically in the common bile duct with significant signal artifact that did affect visualization. - Cholelithiasis was found in the gallbladder. - Pancreatic parenchymal abnormalities consisting of atrophy were noted in the entire pancreas. No ductal dilation or other abnormalities noted. - A few benign appearing lymph nodes were visualized in the peripancreatic region and shila hepatis region. Fine needle biopsy performed of the largest lesion, which was subcentimeter. - Visualized portions of the liver, spleen, left adrenal gland and left kidney were normal on ultrasound examination. Recommendation: - The patient will be observed post-procedure, until all discharge criteria are met. - Discharge patient to home. - Observe patient's clinical course following today's procedure with therapeutic intervention. - Watch for complications post-procedure, including fevers, infection, bleeding and perforation. - Resume regular diet. - Continue present medications. - Await cytology results. If further evaluation is needed, consider repeat EUS once the stent is removed vs SpyGlass cholangioscopy. - Return to Dr. Myers in the GI clinic at appointment to be scheduled for follow-up. - Return to primary care physician as previously scheduled. - The findings and recommendations were discussed with the patient and their spouse. - Patient has a contact number available for emergencies. The signs and symptoms of potential delayed complications were discussed with the patient. Return to normal activities tomorrow. Written discharge instructions were provided to the patient. Referring MD: Quan Myers MD Medicines: Monitored Anesthesia Care Procedure: Pre-Anesthesia Assessment: - Prior to the procedure, a History and Physical was performed, and patient medications and allergies were reviewed. The patient's tolerance of previous anesthesia was also reviewed. The risks and benefits of the procedure and the sedation options and risks were discussed with the patient. All questions were answered, and informed consent was obtained. Prior Anticoagulants: The patient has taken no anticoagulant or antiplatelet agents. ASA Grade Assessment: III - A patient with severe systemic disease. After reviewing the risks and benefits, the patient was deemed in satisfactory condition to undergo the procedure. After obtaining informed consent, the endoscope was passed under direct vision. Throughout the procedure, the patient's blood pressure, pulse, and oxygen saturations were monitored continuously. The Endoscope was introduced through the mouth, and advanced to the second part of duodenum. The Endosonoscope was introduced through the mouth, and advanced to the second part of duodenum. After obtaining informed consent, the endoscope was passed under direct vision. Throughout the procedure, the patient's blood pressure, pulse, and oxygen saturations were monitored continuously.The upper GI endoscopy was accomplished without difficulty. The patient tolerated the procedure well. Complications: No immediate complications. Procedure Code(s): --- Professional --- 41552, Esophagogastroduodenoscopy, flexible, transoral; with transendoscopic ultrasound-guided intramural or transmural fine needle aspiration/biopsy(s), (includes endoscopic ultrasound examination limited to the esophagus, stomach or duodenum, and adjacent structures) --- Technical --- 52280, Esophagogastroduodenoscopy, flexible, transoral; with transendoscopic ultrasound-guided intramural or transmural fine needle aspiration/biopsy(s), (includes endoscopic ultrasound examination limited to the esophagus, stomach or duodenum, and adjacent structures) Diagnosis Code(s): --- Professional --- K44.9, Diaphragmatic hernia without obstruction or gangrene K29.70, Gastritis, unspecified, without bleeding K86.9, Disease of pancreas, unspecified K83.1, Obstruction of bile duct K83.8, Other specified diseases of biliary tract --- Technical --- K44.9, Diaphragmatic hernia without obstruction or gangrene K29.70, Gastritis, unspecified, without bleeding K86.9, Disease of pancreas, unspecified K83.1, Obstruction of bile duct K83.8, Other specified diseases of biliary tract CPT copyright 2021 [employer]. All rights reserved. The codes documented in this report are preliminary and upon hydroponics grower review may be revised to meet current compliance requirements. Attending Participation: I personally performed the entire procedure. Brayan Herrera MD 12/05/2024 5:36:10 PM This report has been signed electronically. Number of Addenda: 0 Note Initiated On: 12/05/2024 12:26 PM documented in this [facility]02-19-2025 NotePatient: Russell Vaughn Procedure Information Date/Time: 12/05/24 1330 Procedure: ESOPHAGOSCOPIC ULTRASOUND EXAM Location: [place] [id number] / [facility] Gastroenterology Providers: Brayan Herrera MD Relevant Problems No relevant active problems Past Medical History: Past Medical History: No date: Disease of thyroid gland Past Surgical History: Past Surgical History: No date: COLONOSCOPY 10/25/2024: ERCP Comment: w/stent placement No date: HERNIA REPAIR No date: REMOVAL OF HYDROCELE (HISTORICAL) Social History: TOBACCO: reports that he has never smoked. He has never used smokeless tobacco. ETOH: reports no history of alcohol use. Social History Substance and Sexual Activity Drug Use Never Family History: No family history on file. Screening: unknown Clinical information reviewed: Tobacco Allergies Meds Med Hx Surg Hx Fam Hx Soc Hx Physical Exam Airway Mallampati: II TM distance: >3 FB Neck ROM: full Mouth Open: normalendotracheal tube not in place Cardiovascular Dental (+) chipped Pulmonary Abdominal Anesthesia Plan patient is NPO appropriate Any family history or previous problems with anesthesia no ASA 2 TIVA Any family history or previous problems with anesthesia no The patient is not a current smoker. Anesthetic plan and risks discussed with patient. ARPAN Screening Labs: No results found for: WBC, HGB, HCT, MCV, PLT No results found for: SODIUM, NA, POTASSIUM, K, CHLORIDE, CL, CO2, BUN, CREATININE, GLUCOSE, CALCIUM, PROT, BILIRUBINFL, ALKPHOS, AST, ALT, EGFR, GLOB Pain Score: 2 No echocardiogram results found for the past 14 days No results found for this or any previous visit. Equipment [facility]s: [facility] History and physical note* Brayan Herrera MD - 12/04/2024 11:34 AM EST Images from the original note were not included. GASTROENTEROLOGY PREPROCEDURE H&P 12/04/2024 Patient: Russell Vaughn : 1945 Primary Care Physician: No primary care provider on file. HISTORY OF PRESENT ILLNESS: Russell Vaughn is a 79 y.o. male who is referred by Dr. Glass Friend for further evaluation of RUQ abdominal pain, jaundice and diarrhea. He was started on pancreatic enzymes with improvement in the diarrhea. He had ERCP 10/25/24 with findings of distal biliary stricture and upstream ductal dilation along with bile duct stones. Brushings were obtained and a stent was placed. Brushings returned with atypical cells. Prior CT scan with pancreatic atrophy and dilated bile duct, but no obvious massor other obstruction. REVIEW OF SYSTEMS: A complete 10 point review of systems was obtained. Please see the HPI for pertinent positives and negatives. All other systems reviewed were found to be negative or noncontributory. PAST MEDICAL HISTORY: No past medical history on file. PAST SURGICAL HISTORY: No past surgical history on file. SOCIAL HISTORY: TOBACCO: has no history on file for tobacco use. ETOH: has no history on file for alcohol use. DRUGS: has no history on file for drug use. FAMILY HISTORY: No family history on file. MEDICATIONS: Prior to Admission medications Not on File No current facility-administered medications for this encounter. No current outpatient medications on file. ALLERGIES: Not on File OBJECTIVE: Vitals: There were no vitals taken for this visit. General appearance: Alert and oriented, NAD, conversational HEENT: NC/AT, PERRL, sclera anicteric Neck: Supple, normal ROM Respiratory: Normal respiratory effort. CTA Cardiovascular: Regular rate and rhythm Abdomen: Soft, non-tender, non-distended Skin: Skin color, texture, turgor normal. No rashes or lesions. Neurologic: Grossly intact LABS: Reviewed IMAGING/PROCEDURES Reviewed ASSESSMENT Russell Vaughn is a 79 y.o. male with biliary stricture, concern for underlying mass. PLAN EGD/EUS The benefits, alternatives, and risks of the procedure(s) including (but not exclusive to) pain, sore throat, bleeding, perforation, infection, nausea, vomiting, aspiration, hypoxia/hypotension/allergic reaction(s) due to sedatives, phlebitis, need for hospitalization, need for transfusions, need for antibiotic therapy, need for surgery, and likelihood of missing a lesion, were explained to the patient/guardian/responsible accompanying adult who is agreeable. Brayan Herrera MD [facility] [employer] Phone: [phone] NoteGASTROENTEROLOGY PREPROCEDURE H&P 12/04/2024 Patient: Russell Vaughn : 1945 Primary Care Physician: No primary care provider on file. HISTORY OF PRESENT ILLNESS: Russell Vaughn is a 79 y.o. male who is referred by Dr. Quan Myers for further evaluation of RUQ abdominal pain, jaundice and diarrhea. He was started on pancreatic enzymes with improvement in the diarrhea. He had ERCP 10/25/24 with findings of distal biliary stricture and upstream ductal dilation along with bile duct stones. Brushings were obtained and a stent was placed. Brushings returned with atypical cells. Prior CT scan with pancreatic atrophy and dilated bile duct, but no obvious mass or other obstruction. REVIEW OF SYSTEMS: A complete 10 point review of systems was obtained. Please see the HPI for pertinent positives and negatives. All other systems reviewed were found to be negative or noncontributory. PAST MEDICAL HISTORY: No past medical history on file. PAST SURGICAL HISTORY: No past surgical history on file. SOCIAL HISTORY: TOBACCO: has no history on file for tobacco use. ETOH: has no history on file for alcohol use. DRUGS: has no history on file for drug use. FAMILY HISTORY: No family history on file. MEDICATIONS: Prior to Admission medications Not on File No current facility-administered medications for this encounter. No current outpatient medications on file. ALLERGIES: Not on File OBJECTIVE: Vitals: There were no vitals taken for this visit. General appearance: Alert and oriented, NAD, conversational HEENT: NC/AT, PERRL, sclera anicteric Neck: Supple, normal ROM Respiratory: Normal respiratory effort. CTA Cardiovascular: Regular rate and rhythm Abdomen: Soft, non-tender, non-distended Skin: Skin color, texture, turgor normal. No rashes or lesions. Neurologic: Grossly intact LABS: Reviewed IMAGING/PROCEDURES Reviewed ASSESSMENT Russell Vaughn is a 79 y.o. male with biliary stricture, concern for underlying mass. PLAN EGD/EUS The benefits, alternatives, and risks of the procedure(s) including (but not exclusive to) pain, sore throat, bleeding, perforation, infection, nausea, vomiting, aspiration, hypoxia/hypotension/allergic reaction(s) due to sedatives, phlebitis, need for hospitalization, need for transfusions, need for antibiotic therapy, need for surgery, and likelihood of missing a lesion, were explained to the patient/guardian/responsible accompanying adult who is agreeable. Brayan Herrera [facility]02-18-2025 History and physical note* Brayan Herrera MD - 12/04/2024 11:34 AM EST Images from the original note were not included. GASTROENTEROLOGY PREPROCEDURE H&P 12/04/2024 Patient: Russell Vaughn : 1945 Primary Care Physician: No primary care provider on file. HISTORY OF PRESENT ILLNESS: Russell Vaughn is a 79 y.o. male who is referred by Dr. Quan Myers for further evaluation of RUQ abdominal pain, jaundice and diarrhea. He was started on pancreatic enzymes with improvement in the diarrhea. He had ERCP 10/25/24 with findings of distal biliary stricture and upstream ductal dilation along with bile duct stones. Brushings were obtained and a stent was placed. Brushings returned with atypical cells. Prior CT scan with pancreatic atrophy and dilated bile duct, but no obvious massor other obstruction. REVIEW OF SYSTEMS: A complete 10 point review of systems was obtained. Please see the HPI for pertinent positives and negatives. All other systems reviewed were found to be negative or noncontributory. PAST MEDICAL HISTORY: No past medical history on file. PAST SURGICAL HISTORY: No past surgical history on file. SOCIAL HISTORY: TOBACCO: has no history on file for tobacco use. ETOH: has no history on file for alcohol use. DRUGS: has no history on file for drug use. FAMILY HISTORY: No family history on file. MEDICATIONS: Prior to Admission medications Not on File No current facility-administered medications for this encounter. No current outpatient medications on file. ALLERGIES: Not on File OBJECTIVE: Vitals: There were no vitals taken for this visit. General appearance: Alert and oriented, NAD, conversational HEENT: NC/AT, PERRL, sclera anicteric Neck: Supple, normal ROM Respiratory: Normal respiratory effort. CTA Cardiovascular: Regular rate and rhythm Abdomen: Soft, non-tender, non-distended Skin: Skin color, texture, turgor normal. No rashes or lesions. Neurologic: Grossly intact LABS: Reviewed IMAGING/PROCEDURES Reviewed ASSESSMENT Russell Vaughn is a 79 y.o. male with biliary stricture, concern for underlying mass. PLAN EGD/EUS The benefits, alternatives, and risks of the procedure(s) including (but not exclusive to) pain, sore throat, bleeding, perforation, infection, nausea, vomiting, aspiration, hypoxia/hypotension/allergic reaction(s) due to sedatives, phlebitis, need for hospitalization, need for transfusions, need for antibiotic therapy, need for surgery, and likelihood of missing a lesion, were explained to the patient/guardian/responsible accompanying adult who is agreeable. Brayan Herrera MD documented in this [facility]02-04-2025 [facility]01-09-[facility]01-08-[facility]25 Evaluation note* Diagnosis Onset Date Resolution Status Admit Date RUQ abdominal pain acute Octuar y 2024 7:50am Jaundice resolved October 24 025 7:50am RUQ abdominal pain acute Januar y 2024 9:12am Jaundice resolved October 25, 2 025 9:12am Choledocholithiasis inactive Janua ry 2024 9:12am Obstructive jaundice inactive Solis lianet 2024 9:12am History of biliary duct sten t placement acute November 18 2:00am Hyperbilirubinemia acute Februa 2024 2:00am Transaminitis acute November 2:00am Acute cholecystitis with acu te cholangitis resolved November 18 2:00am Acute metabolic encephalopathy resol alexandra November 18, 2024 2:00am Ascending cholangitis resolved Feb ruary 2024 2:00am Fever resolved November 18, 2024 2:00am Hepatitis resolved November 18, 2024 2:00am Jaundice resolved November 18, 2024 2:00am Lactic acidosis resolved November 18, 2024 2:00am Pneumobilia resolved November 18, 2024 2:00am Respiratory insufficiency resolved November 18, 2024 2:00am Sepsis resolved November 18, 2024 2:00am Biliary stricture acute uar y 2024 1:27pm Change in stool caliber acute F ebruary 2024 1:27pm History of biliary duct sten t placement acute December 12 2 025 1:27pm [facility] Work Phone: 1(132) 789-901512-28-2024 Telephone encounter Note* Telephone Encounter - Liyah Huff RN - 10/13/2024 8:37 AM EST Faxed consult, demographics, phone encounter notes from 10/08 and 10/12, EC office visit note from 10/05 and fecal panc elastase test results to Dr. Myers's office at [phone]. [facility]12-28-2024 Miscellaneous Notes* Telephone Encounter - Liyah Huff RN - 10/13/2024 8:37 AM EST Faxed consult, demographics, phone encounter notes from 10/08 and 10/12, EC office visit note from 10/05 and fecal panc elastase test results to Dr. Myers's office at [phone]. * Telephone Encounter - Brenda Rosen - 10/13/2024 8:31 AM EST Spoke with patient and only openings for this we could find was [facility] [place] or [place] and patientdeclined to not travel due to spouses medical concerns.Please fax referral to Dr Myers * Telephone Encounter - Liyah Huff RN - 10/13/2024 8:27 AM EST Called and spoke with pt and notified of results and need to start taking medication and see production graphic designer. Pt verbalized understanding and transferred to dye house worker Brenda to get set up for an appt. 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 This means that he isn't producing the correct amount of pancreatic enzymes needed to digest his food. Needs to start taking Creon with every meal and at bedtime (starting with 1 capsule per dosing) andneeds to follow up with Geothermal Operations Engineer Efrain Peters DO The following approved medication requests have been transmitted electronically. Requested Prescriptions Signed Prescriptions Disp Refills jbnhkv-uhknzygf-gysdhkg (CREON 3) 3,000-9,500- 15,000 unit delayed release capsule 120 capsule 3 Sig: Take 1 capsule by mouth with meals and at bedtime. Authorizing Provider: EFRIAN PETERS DO documented in this [facility]12[facility] Telephone encounter Note * Telephone Encounter - Brenda Rosen - 10/13/2024 8:31 AM EST Spoke with patient and only openings for this we could find was [facility] [place] or [place] and patientdeclined to not travel due to spouses medical concerns.Please fax referral to Dr Myers [facility]12-28-2024 Telephone encounter Note* Telephone Encounter - Liyah Huff RN - 10/13/2024 8:27 AM EST Called and spoke with pt and notified of results and need to start taking medication and see production graphic designer. Pt verbalized understanding and transferred to dye house worker Brenda to get set up for an appt. 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 This means that he isn't producing the correct amount of pancreatic enzymes needed to digest his food. Needs to start taking Creon with every meal and at bedtime (starting with 1 capsule per dosing) andneeds to follow up with Geothermal Operations Engineer Efrain Peters DO The following approved medication requests have been transmitted electronically. Requested Prescriptions Signed Prescriptions Disp Refills pwisvi-kkmnzgas-ipsufom (CREON 3) 3,000-9,500- 15,000 unit delayed release capsule 120 capsule 3 Sig: Take 1 capsule by mouth with meals and at bedtime. Authorizing Provider: EFRAIN PETERS DO [facility]12-23-2024 Telephone encounter Note* Telephone Encounter - Sheyla Wyman MA - 10/08/2024 2:33 PM EST Pt notified. Sheyla Wyman MA [facility]12-23-2024 Miscellaneous Notes* Telephone Encounter - Sheyla Wyman MA - 10/08/2024 2:33 PM EST Pt notified. Sheyla Wyman MA * Telephone Encounter - Efrain Peters DO - 10/08/2024 1:12 PM EST Please let him know that stool studies are now ordered to have completed Efrain Peters DO * Telephone Encounter - Ksenia Shen RN - 10/08/2024 11:56 AM EST Patient calls to schedule an EC follow up for urinary symptoms, abdomen pain, and loose stools. Patient reports he was supposed to call today to schedule an appointment with provider today. No available appointment with provider or team and patient not wanting to schedule with another provider. Patient reports that EC said provider would probably want to order stool cultures. OV note states patient declined stool testing. Patient asking if provider will place orders for stool culture so he can come in tomorrow to get specimen supplies. Pended possible stool tests. Please review and advise. Ksenia Shen RN documented in this [facility]24 Telephone encounter Note * Telephone Encounter - Efrain Peters DO - 10/08/2024 1:12 PM EST Please let him know that stool studies are now ordered to have completed Efrain Peters DO [facility]12-23-2024 Telephone encounter Note* Telephone Encounter - Ksenia Shen RN - 10/08/2024 11:56 AM EST Patient calls to schedule an EC follow up for urinary symptoms, abdomen pain, and loose stools. Patient reports he was supposed to call today to schedule an appointment with provider today. No available appointment with provider or team and patient not wanting to schedule with another provider. Patient reports that EC said provider would probably want to order stool cultures. OV note states patient declined stool testing. Patient asking if provider will place orders for stool culture so he can come in tomorrow to get specimen supplies. Pended possible stool tests. Please review and advise. Ksenia Shen RN [facility]12-22-2024 Telephone encounter Note* Telephone Encounter - Niecy Oneil MA - 10/07/2024 8:45 AM EST Pt was notified of the results. Pt verbalized understanding. Niecy Oneil MA [facility]12-22-2024 Miscellaneous Notes* Telephone Encounter - Niecy Oneil MA - 10/07/2024 8:45 AM EST Pt was notified of the results. Pt verbalized understanding. Niecy Oneil MA * Telephone Encounter - Sandra Hunt APRN.CNP - 10/07/2024 8:11 AM EST Please notify patient that urine culture was negative - no antibiotic is needed. Follow up with PCPif continued symptoms. Sandra Hunt APRN.CNP documented in this encounterMer[facility]12-[facility]24 Telephone encounter Note * Telephone Encounter - Sandra Hunt APRN.CNP - 10/07/2024 8:11 AM EST Please notify patient that urine culture was negative - no antibiotic is needed. Follow up with PCPif continued symptoms. Sandra Hunt APRN.CNP [facility] Work Phone: [phone] [facility] History of Present illness Narrative* Goldie Fernández APRN.DELIA - 10/05/2024 11:33 AM EST CC: Patient presents with: Urinary Problem: Frequency, flank pain abd pain x 2-3 weeks Diarrhea: X loose stools No diarrhea just soft stools for a few days but did eat some chicken from a restaurant he thinks may have caused this but only once a day this happens. HPI Russell Vaughn is a 78 year old male who presents with complaint of possible UTI. These symptomshave been present for frequency and bladder pressure days. Associated symptoms: frequency Denies: fever, chills, sweats, abdominal pain, and flank pain Treatments: nothing The ROS was otherwise negative. PMH, Medications, labs, allergies, and recent past visits with PCP were reviewed and updated as able. PHYSICAL EXAM: BP 149/83 Pulse 79 Temp 36.1 C (97 F) Resp 18 Wt 75 kg (165 lb 5.5 oz) SpO2 99% BMI 24.42 kg/m General: Well appearing and alert CV: Regular rate and rhythm without obvious murmur Lungs: clear to auscultation bilaterally Back: straight and symmetric Abdomen: soft, nontender, nondistended PAST MEDICAL HISTORY Diagnosis Date Diverticulosis of colon (without mention of hemorrhage) Erectile dysfunction GERD (gastroesophageal reflux disease) Internal hemorrhoids without mention of complication Nocturia Other and unspecified hyperlipidemia Prediabetes Unspecified essential hypertension Unspecified hypothyroidism PAST SURGICAL HISTORY Procedure Laterality Date COLONOSCOPY FLX DX W/COLLJ SPEC WHEN PFRMD 12/09/1999 FLEXIBLE SIGMOIDOSCOPY COLONOSCOPY FLX DX W/COLLJ SPEC WHEN PFRMD 10/02/07 PAST SURGICAL HISTORY OF hydrocele repair REPAIR INGUINAL HERNIA Right 10/22/2019 Dr. Annel Bradshaw, [facility] ALLERGIES Patient has no known allergies. MEDICATIONS levothyroxine (LEVOXYL) 125 mcg tablet Take 1 tablet by mouth once daily. Take on empty stomach. For thyroid. hydrocortisone (PROCTOZONE-HC) 2.5 % rectal cream 1 application by RECTAL route as needed. Rwnsxzzvynxhh-Mfabttpq-Xpvmar (CENTRUM SILVER) Tab Take 1 tablet by mouth once daily. FAMILY HISTORY Problem Relation Age of Onset Diabetes Father Emphysema Mother other (no siblings) Mother Social History Tobacco Use Smoking status: Never Smokeless tobacco: Never Substance Use Topics Alcohol use: No Drug use: No ASSESSMENT/PLAN: 1. Urinary frequency - ICD9: 788.41, ICD10: R35.0 - UA DIP, URINE (POC) - URINE CULTURE No medication at this time. If culture is positive please treat. Does not want stool samples collected at this time. Potential red flag symptoms discussed with the patient. Reviewed appropriate action plan to take ifred flag symptoms occur. He will proceed to the ER if worsens.Patient agreeable to treatment plan. Goldie Fernández APRN.LANDCARE OFFICER documented in this encounterMer[facility]12-[facility]2024 Telephone encounter Note * Telephone Encounter - Brenda Deutsch RN - 10/05/2024 10:52 AM EST Patient calling in and states he believes he has a urinary infection. Reports he had a UTI about 20years ago and is having the same sx's as then. Requesting PCP send antibiotic to his pharmacy. This nurse advised patient to either make an appt today or come to EC today for evaluation. Patientstates he has very limited time today due to the holidays and family obligations. Pt agreeable to EC today due to flexibility of service. Brenda Deutsch RN [facility]12-20-2024 Miscellaneous Notes* Telephone Encounter - Brenda Deutsch RN - 10/05/2024 10:52 AM EST Patient calling in and states he believes he has a urinary infection. Reports he had a UTI about 20years ago and is having the same sx's as then. Requesting PCP send antibiotic to his pharmacy. This nurse advised patient to either make an appt today or come to EC today for evaluation. Patientstates he has very limited time today due to the holidays and family obligations. Pt agreeable to EC today due to flexibility of service. Brenda Deutsch RN documented in this encounterMer[facility]02-28-2024 Miscellaneous Notes* Telephone Encounter - Brenda Deutsch RN - 12/14/2023 11:12 AM EST Patient phones for refill(s): Requested Prescriptions Pending Prescriptions Disp Refills levothyroxine (LEVOXYL) 125 mcg tablet 90 tablet 3 Sig: Take 1 tablet by mouth once daily. Take on empty stomach. For thyroid. Date of last office visit in primary care: 12/07/2023 Date of next office visit in primary care: not scheduled yet Brenda Deutsch RN. documented in this encounterMer[facility]02-21-2024 History of Present illness Narrative* Efrain Peters, - 12/07/2023 9:46 PM EST CC: Russell Vaughn is a 78 year old male who presents to the office for follow up HPI: Had episode of LH and dizziness and constipation for a while in July 2023. Thinks it may be related to using an old protein powder supplement starting the week before his symptoms started that he later realized is . Symptoms improved with use of metamucil as well as probiotic. Had a few episodes of the lightheadedness during this time but hasn't had symptoms really since then. IFG, diet controlled, admits that he tries to manage by limiting his carbohydrate intake and sugar intake. Doesn't want to be on medication GERD, intermittent rare symptoms of heart burn, not daily or consistent. No abd pain or nausea or vomiting. Has a hx of hiatal hernia in the past. Hypothyroidism, taking levothyroxine 125 mcg without concern TSH Date Value Ref Range Status 11/14/2023 0.328 0.270 - 4.200 mIU/L Final T3 116 11/14/2023 PAST MEDICAL HISTORY Diagnosis Date Diverticulosis of colon (without mention of hemorrhage) Erectile dysfunction GERD (gastroesophageal reflux disease) Internal hemorrhoids without mention of complication Nocturia Other and unspecified hyperlipidemia Prediabetes Unspecified essential hypertension Unspecified hypothyroidism PAST SURGICAL HISTORY Procedure Laterality Date COLONOSCOPY FLX DX W/COLLJ SPEC WHEN PFRMD 12/09/1999 FLEXIBLE SIGMOIDOSCOPY COLONOSCOPY FLX DX W/COLLJ SPEC WHEN PFRMD 10/02/07 PAST SURGICAL HISTORY OF hydrocele repair REPAIR INGUINAL HERNIA Right 10/22/2019 Dr. Annel Bradshaw, [facility] Social History: Social History Tobacco Use Smoking status: Never Smokeless tobacco: Never Substance Use Topics Alcohol use: No Drug use: No FAMILY HISTORY Problem Relation Age of Onset Diabetes Father Emphysema Mother other (no siblings) Mother Current Outpatient prescriptions: levothyroxine (LEVOXYL) 125 mcg tablet Take 1 tablet by mouth once daily. Take on empty stomach. For thyroid. Visrewnkqgrto-Dlapxdue-Uoutfs (CENTRUM SILVER) Tab Take 1 tablet by mouth once daily. hydrocortisone (PROCTOZONE-HC) 2.5 % rectal cream 1 application by RECTAL route as needed. Aspirin 81 mg tab Take 1 tablet by mouth once daily. Take with food. Allergies: ALLERGIES No Known Allergies ROS: See HPI PE: 12/07/23 1833 BP: 138/88 Pulse: 72 Resp: 16 Temp: 36.8 C (98.3 F) TempSrc: Temporal Weight: 81.2 kg (179 lb) Height: 175.3 cm (5' 9) Gen: A&O, NAD, non-toxic appearing, Pleasant, cooperative HEENT: NT/AC, PERRLA, EOMs intact b/l, nares clear and patent b/l, pharynx without erythema, exudate or lesions. Uvula midline. MMM, EACs without erythema or debris. TMs pearly blount with intact landmarks b/l. Neck: supple, No cervical LAD, no thyromegaly, no carotid bruits CV: RRR, normal S1 and S2, no murmurs, no gallops, no rubs, Pulses 2+ and symmetric in UE and LE b/l Lungs: normal respiratory effort, CTA b/l, no wheezing or rhonchi or rales Abd: soft, NT, ND, +BS, no hepatosplenomegaly MS: reduced ROM right shoulder Neuro: CN II-XII intact b/l, strength 5/5 b/l UE and LE, DTRs 2/4 UE and LE, sensation intact. Skin: warm, dry, intact, actinic keratosis x 1 on right superior helix of ear and x 1 on left superior helix of ear without signs of infection ASSESSMENT/PLAN: 1. Mixed hyperlipidemia - ICD9: 272.2, ICD10: E78.2 (primary diagnosis) - Improving control - Counseled on healthy diet and regular exercise - Discussed need for and benefit of weight loss. BMI 26.43 kg/(m^2) 2. Essential hypertension - ICD9: 401.9, ICD10: I10 - Controlled - Continue current medications - Recommend home blood pressure monitoring, to bring results to next visit - Encouraged sodium restriction, DASH or Mediterranean diet - Recommend regular aerobic exercise 3. IFG (impaired fasting glucose) - ICD9: 790.21, ICD10: R73.01 Stable, need for low carb intake and regular exercise which he is getting consistently 4. Acquired hypothyroidism - ICD9: 244.9, ICD10: E03.9 - Instructed patient on importance of taking on an empty stomach either first thing in the morning or at bedtime. - continue current dose of Synthroid 5. Actinic keratosis - ICD9: 702.0, ICD10: L57.0 See above, treated x 2 with cryotherapy, tolerated well, no complication, he is aware of wound careat home 6. Gastroesophageal reflux disease without esophagitis - ICD9: 530.81, ICD10: K21.9 - Discussed lifestyle modifications including losing weight, limiting caffeine, no meals three hours before sleep, and head of bed elevation - if worsening, needs to consider starting pepcid 20 mg in the evening Efrain Peters DO To ER if develops chest pain, shortness of breath, or severe worsening of symptoms. Discussed risks, benefits, alternatives, and potential side effects of medications. Patient expressed understanding and agreed with the plan. Efrain Peters DO [address] [place] [address] documented in [address]Mer[facility]01-[facility]-2024 Telephone encounter Note * Telephone Encounter - Liyah Jones LPN - 11/07/2023 3:27 PM EST Patient notified of lab orders, verbalizes understanding of instructions. Liyah Jones LPN [facility]01-22-2024 Miscellaneous Notes* Telephone Encounter - Liyah Jones LPN - 11/07/2023 3:27 PM EST Patient notified of lab orders, verbalizes understanding of instructions. Liyah Jones LPN * Telephone Encounter - Marcia Santos APRN.CNP - 11/07/2023 3:16 PM EST Lab work is placed. Please let patient know. Thank you, Marcia Santos APRN.CNP * Telephone Encounter - Zoraida Julien LPN - 11/07/2023 1:11 PM EST CM At Augie's request I am sending this info: He has had 3 dizzy spells over the past 3 months accompanied by upset stomach. He has had minor irregularities in BP readings. He intends to get blood work done before his Nov 25 appt with you. Would any additional blood work orders be needed? Thank you. Marcela Vaughn documented in this encounterMercy Health [facility]. [facility]01-22-2024 Telephone encounter Note * Telephone Encounter - Marcia Santos APRN.CNP - 11/07/2023 3:16 PM EST Lab work is placed. Please let patient know. Thank you, Marcia Santos APRN.CNP [facility]01-22-2024 Telephone encounter Note* Telephone Encounter - Zoraida Julien LPN - 11/07/2023 1:11 PM EST CM At Augie's request I am sending this info: He has had 3 dizzy spells over the past 3 months accompanied by upset stomach. He has had minor irregularities in BP readings. He intends to get blood work done before his Nov 25 appt with you. Would any additional blood work orders be needed? Thank you. Marcela Augustineauley [facility]10-31-2023 Miscellaneous Notes* Telephone Encounter - Efrain Peters DO - 08/16/2023 1:49 PM EDT Noted Efrain Peters DO * Telephone Encounter - Sheyla Wyman Ma - 08/15/2023 5:02 PM EDT Pt notified. Pt states as of today, he started taking Metamucil. He states that he thinks he had a blockage but since taking Miralax his bowels have been doing better. Stopped the Protein. Sheyla Wyman Ma * Telephone Encounter - Efrain Peters DO - 08/15/2023 4:53 PM EDT Agree with need for follow up with surgeon to determine if colonscopy is needed. Also may need blood work. Please make him an appt to discuss further Efrain Peters DO * Telephone Encounter - Brenda Deutsch RN - 08/12/2023 9:45 AM EDT Patient calling for Dr. Peters's advise. Declined to make appt at this time, but states he will make an appt if advises him to. Patient reports: -he has noticed a change in his stool; takes more energy to get things going, reports his whole life had routine BM every morning and now it kind of hard to process -reports has stopped eating bread recently; used to eat 4-6 sliced of bread per day and eats none now -reports weight loss, weighs 165# now but has changed diet and has increased his activity and increased fluids -Reports he did begin an annual protein supplement recently that Dr. Peters advises him to take during the winter months and noticed his stools being harder so he stopped the protein supplement. -started to take metamucil a couple days ago-feels this may be improving things a bit -Denies: abd pain, fever, blood in stools, N/V/D, or feeling of being unwell -Pt wonders if a colonoscopy soon would be appropriate? Pt not due until 2027. Please advise patient. Thank you. documented in this encounterMercy Health St. [facility]07-06-2023 History of Present illness Narrative* Lis Stockton Pss - 04/21/2023 10:33 AM EDT POPULATION HEALTH NAVIGATION OUTREACH Action/I 04/21/23 Discuss the following [employer] care gaps: ~Medicare Wellness Exam for November 2023 (last exam was 11/29/22) Outcome: ~Spoke with patient, scheduled him for his Medicare Wellness on 11/25/23. Patient Identified by Name and : YES, via phone Outreach Outcome/Action Spoke to patient / parent / legal guardian: Patient scheduled Did you use a PCP flex slot to schedule this appointment? No Reason for Outreach Care Gap or Scheduling/Wellness visits Payer: Payor: [employer] MEDICARE / Plan: [employer] MEDICARE PPO / Product Type: PPO / Care Gap Reviewed:: Annual Wellness visit Reminder: Reminder note to check Health Maintenance for items below Health Maintenance items due: ADVANCE DIRECTIVE DISCUSSION Never done Navigation Signature: Lis Stockton Population Health Navigator April 21, 2023 10:33 AM documented in this encounterMercy Health St. [facility]04-17-2023 History of Present illness Narrative* Emily York PA-C - 01/31/2023 10:09 AM EDT Emily York PA-C Department of Orthopaedics Orthopaedics [address] [facility] [address] Dept: [phone] Dept January 31, [address] Efrain Peters for an opinion regarding right shoulder strain. My final recommendations will be communicated back to the requesting physician by way of shared Medical record or letter to requesting physician via US mail. CHIEF COMPLAINT: New and Pain of the Right Shoulder Mr. Russell Vaughn is a 77 year old male who presents with a recent history of right shoulder pain. Last May the patient was trying to start a boiler washer, he states that the boiler washer had about 120 pounds of resistance, will pulling the cable he injured his shoulder. Immediately after the injury he was having difficulty raising his arm. He did start his own rehab exercises including exercise bands. He followed up with his primary care and had an MRI which did not show any type of a rotator cuff tear. The patient states that his motion and strength are much improved, he thought about even canceling today's visit. 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 ASSESSMENT: M25.311 Shoulder injury, right M75.121 Tendonitis right rotator cuff PLAN: No evidence of rotator cuff tear on MRI, no evidence of shoulder instability on physical exam. I suspect that he may have sprained his cuff, fortunately he was morgan enough to start his own rehab program and is doing very well. We discussed having him only follow-up on an as-needed basis. Patient agrees with plan. Mr. Russell Vaughn was advised as to contrast therapies and/or to take analgesics/anti-inflammatories as needed and all contraindications were reviewed. OBJECTIVE: Mr. Russell Vaughn is a pleasant 77 year old in no apparent distress. Gen:There were no vitals taken for this visit. nl development, non obese, no deformities ENT: Normocephalic, normal hearing, moist mucosa CV: Pulses:Radial= 2+ and symmetric, capillary refill < 2 secs, no peripheral edema/varicosities Skin: no rash, bruising or lesions. Good turgor. Psych: cooperative and appropriate, alert and oriented x 3, good mood and affect. Musculoskeletal: Supple range of motion of the cervical spine without pain. Spurling signs are negative. No atrophy of the deltoid and shoulder musculature. right shoulder is nontender to palpation over the SC joint and clavicle, tender over the right AC joint. No tenderness to palpation over the posterior shoulder, non tender anterior lateral corner of the shoulder and greater tuberosity. Non tender at the bicipital groove and coracoid. Active range of motion is 155* of forward elevation, 65* external rotation, and internal rotation to the upper lumbar spine. respectively. No laxity with anterior and posterior stress. negative Neer and negative Monroy impingement signs. 5/5 strength with supraspinatus, inf raspinatus and subscapularis. Sensation is intact in the axillary, radial, median and ulnar nerve distribution Imaging: IMPRESSION: Rotator cuff tendinosis without tear. Moderate subacromial subdeltoid bursitis. Ship'S Pilot: [facility] Transcribe Date/Time: Dec 22 2022 2:18P Dictated by : REGINO WALLACE MD This examination was interpreted and the report reviewed and electronically signed by: FRANCINE LARSEN MD on Dec 22 2022 4:32PM EST Results-Findings * * *Final Report* * * DATE OF EXAM: Dec 22 2022 1:25PM [facility] 0240 - MRI SHOULDER [facility] RT / PROCEDURE REASON: multiple diagnoses * * * * Physician Interpretation * * * * EXAMINATION: MRI SHOULDER WO IVCON RT HISTORY: Nontraumatic complete rotator cuff tear. TECHNIQUE: Routine non-contrast MRI of the shoulder. MQ: [id number] COMPARISON: Shoulder radiographs 11/29/2022. RESULT: Examination is mildly limited by motion artifact. TENDONS: Rotator cuff tendons: -Supraspinatus: Intact with mild tendinosis -Infraspinatus: Intact with mild tendinosis -Subscapularis: Intact with tendinosis -Teres Minor: Intact tendon Biceps (Long head) Tendon: Intact , with normal course MUSCLES: Rotator cuff muscles: -Supraspinatus: Preserved bulk and no fatty changes. -Infraspinatus: Preserved bulk and no fatty changes. -Subscapularis: Preserved bulk and no fatty changes. -Teres Minor: Preserved bulk and no fatty changes. Other muscles: Preserved signal and bulk in the deltoid. JOINTS: Glenohumeral Joint: -Labrum: Degeneration and fraying without discrete tear in the superior and anterior labrum -Cartilage: Evaluation of articular cartilage is limited. No large high-grade chondral defect is noted. -Joint Fluid: No effusion . No synovitis. Acromioclavicular Joint: Moderate hypertrophic degenerative changes BONES AND MARROW: No evidence of an acute fracture or suspicious bone marrow replacing process . Linear T1 hypointensity along the anterior glenoid may represent sequela of remote injury. Reactive subcortical cystic changes at the greater and lesser tuberosities. OTHER: Subdeltoid/Subacromial Bursa: Moderate bursal distention with synovial thickening/proliferation. Other: No other significant findings. Localizer images: No additional findings. Supporting Subjective Information Below: Past Surgical History: PAST SURGICAL HISTORY Procedure Laterality Date COLONOSCOPY FLX DX W/COLLJ SPEC WHEN PFRMD 12/09/1999 FLEXIBLE SIGMOIDOSCOPY COLONOSCOPY FLX DX W/COLLJ SPEC WHEN PFRMD 10/02/07 PAST SURGICAL HISTORY OF hydrocele repair REPAIR INGUINAL HERNIA Right 10/22/2019 Dr. Annel Bradshaw, [facility] Medications: Current Outpatient Medications Medication Sig levothyroxine (LEVOXYL) 125 mcg tablet Take 1 tablet by mouth once daily. Take on empty stomach. For thyroid. Akcpycjkisuni-Anfpczeg-Kgoykc (CENTRUM SILVER) Tab Take 1 tablet by mouth once daily. hydrocortisone (PROCTOZONE-HC) 2.5 % rectal cream 1 application by RECTAL route as needed. (Patientnot taking: Reported on 01/31/2023) Aspirin 81 mg tab Take 1 tablet by mouth once daily. Take with food. No current facility-administered medications for this visit. Allergies: Patient has no active allergies. ROS: General (negative for fatigue, malaise, weight loss/gain) HEENT (negative for headache, earache, recent vision changes, sinus pain, sore throat) Respiratory (no recent shortness of breath, hemoptysis) CV (negative for chest tightness, palpitations) Musculoskeletal (see HPI) Psych (no depression, anxiety) This note was partially generated using [employer] voice recognition system, and there may be some incorrect words, spellings, and punctuation that were not noted in checking the note before saving. Emily York PA-C * Steff Henriquez LPN - 01/31/2023 9:25 AM EDT AMB ROOMING INTAKE FLOWSHEET DATA Pain Pain Level: 2 (10 at time of incident) Pain Location: Shoulder-Right Description: Sore Duration Amount of Time: 8 Duration Units: Months Frequency: Intermittent Intervention/Comfort measure: Reposition, Relaxation, Exercise, Heat Patient presents with: Right Shoulder - New, Pain Patient present to office Right shoulder instability- ref fran. Xray- 11/29/2022, MRI-12/22/2022. [facility] Miscellaneous Notes* Telephone Encounter - Anushka Meng - 12/24/2022 11:24 AM EST Called PT LVM to call back and schedule consult to ortho. Anushka MCKEON * Telephone Encounter - Marisa Allen APRN.CNP - 12/23/2022 5:33 PM EST Yes he should see orthopedics for this, please assist him to schedule this appointment. Marisa Allen APRN.CNP * Telephone Encounter - Ara James LPN - 12/22/2022 7:35 PM EST Pt. informed. Pt. requesting Steroid injection for Bursitis. Does he need to go to Ortho for this? * Telephone Encounter - Efrain Peters DO - 12/22/2022 6:43 PM EST Please inform patient that his MRI of the shoulder shows IMPRESSION: Rotator cuff tendinosis without tear. Moderate subacromial subdeltoid bursitis. Also mild degenerative fraying of the labral without an obvious tear. Would recommend consideration of seeing sustainable agriculture specialist next. No obvious major tears present Efrain Peters DO documented in this encounterMer[facility]23 History of Present illness Narrative* Lien Benedict RT(R) - 12/22/2022 1:00 PM EST Radiology Service Progress Note PATIENT NAME: Russell Vaughn DATE OF SERVICE: December 22, 2022 TIME: 12:57 PM PATIENT IDENTITY VERIFICATION COMPLETED USING TWO (2) IDENTIFIERS: Name and Date of confirmedby patient verbally. FALL SCREENING: Has the patient had 2 falls in the last year or 1 fall with injury or currently using an Ambulatory Assistive Device (Walker, Cane, Wheelchair, Crutches, etc.)? No PATIENT GENDER DATA: Male PATIENT RELEVANT IMPLANT DATA REVIEWED: Yes RADIOLOGY DEPARTMENT: MR; Exam(s) Completed: Upper MSK: Shoulder, right PERIPHERAL IV DATA: Not applicable SIGNED BY: RT Carlos(R) December 22, 2022 12:57 PM documented in this encounterMer[facility]23 Miscellaneous Notes* Telephone Encounter - Becky Myers - 12/08/2022 1:31 PM EST Pt informed, verbalized understanding. Pt reports he will check with insurance and contact office. Becky Myers * Telephone Encounter - Efrain Peters DO - 12/08/2022 8:44 AM EST Please inform patient that his xray of his shoulder is normal. No arthritis. That means that likelyhis symptoms are from a rotator cuff concerns. Can consider PHYSICAL THERAPY and orthopedics referral if interested, as well as continue to the MRI testing. Efrain Peters DO documented in this encounterMer[facility]02-[facility]23 History of Present illness Narrative* Joanna Herrera RT(R) - 11/29/2022 8:40 AM EST Radiology Service Progress Note PATIENT NAME: Russell Vaughn DATE OF SERVICE: November 29, 2022 TIME: 8:48 AM PATIENT IDENTITY VERIFICATION COMPLETED USING TWO (2) IDENTIFIERS: Name and Date of confirmedby patient verbally. FALL SCREENING: Has the patient had 2 falls in the last year or 1 fall with injury or currently using an Ambulatory Assistive Device (Walker, Cane, Wheelchair, Crutches, etc.)? No PATIENT GENDER DATA: Male PATIENT RELEVANT IMPLANT DATA REVIEWED: Yes RADIOLOGY DEPARTMENT: General X-ray: Exam(s) Completed: Upper Extremity X- Ray(s): Shoulder, AP / TRUE AP / AXILLARY right PERIPHERAL IV DATA: Not applicable SIGNED BY: RT Roni(R) November 29, 2022 8:48 AM documented in this encounterMer[facility]02[facility]23 History of Present illness Narrative* Efrain Peters DO - 11/29/2022 7:59 AM EST CC: Russell Vaughn is a 77 year old male who presents to the office for follow up. 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 Feels that he hasn't had improvement despite rest, immobilization for 1-2 weeks after injury, stretches and band work at home. Worse with post erior reach movement and overhead movement and trying to push/pull. No swelling or skin changes Hypothyroidism, last labs in 1 year, taking levothyroxine as prescribed HTN, diet controlled HPL, diet controlled PAST MEDICAL HISTORY Diagnosis Date Diverticulosis of colon (without mention of hemorrhage) Erectile dysfunction GERD (gastroesophageal reflux disease) Internal hemorrhoids without mention of complication Nocturia Other and unspecified hyperlipidemia Prediabetes Unspecified essential hypertension Unspecified hypothyroidism PAST SURGICAL HISTORY Procedure Laterality Date COLONOSCOPY FLX DX W/COLLJ SPEC WHEN PFRMD 12/09/1999 FLEXIBLE SIGMOIDOSCOPY COLONOSCOPY FLX DX W/COLLJ SPEC WHEN PFRMD 10/02/07 PAST SURGICAL HISTORY OF hydrocele repair REPAIR INGUINAL HERNIA Right 10/22/2019 Dr. Annel Bradshaw, [facility] Social History: Social History Tobacco Use Smoking status: Never Smokeless tobacco: Never Substance Use Topics Alcohol use: No Drug use: No FAMILY HISTORY Problem Relation Age of Onset Diabetes Father Emphysema Mother other (no siblings) Mother Current Outpatient prescriptions: hydrocortisone (PROCTOZONE-HC) 2.5 % rectal cream 1 application by RECTAL route as needed. Waolmygdqhoev-Uterkwrs-Nxemoy (CENTRUM SILVER) Tab Take 1 tablet by mouth once daily. levothyroxine (LEVOXYL) 125 mcg tablet Take 1 tablet by mouth once daily. Take on empty stomach. For thyroid. Aspirin 81 mg tab Take 1 tablet by mouth once daily. Take with food. Allergies: ALLERGIES Allergen Reactions Naprosyn [Naproxen] GI Upset patient states he no longer has an allergy to this medication, unable to remove from chart TL ROS: See HPI PE: 11/29/22 0746 BP: 138/80 Pulse: 76 Resp: 16 Temp: 36.1 C (97 F) TempSrc: Left Tympanic Weight: 81.6 kg (180 lb) Height: 171 cm (5' 7.32) Gen: A&O, NAD, non-toxic appearing, Pleasant, cooperative HEENT: NT/AC, PERRLA, EOMs intact b/l, nares clear and patent b/l, pharynx without erythema, exudate or lesions. Uvula midline. EACs without erythema or debris. TMs pearly blount with intact landmarks b/l. Neck: supple, No cervical LAD, no thyromegaly, no carotid bruits CV: RRR, normal S1 and S2, no murmurs, no gallops, no rubs, Pulses 2+ and symmetric in UE and LE b/l Lungs: normal respiratory effort, CTA b/l, no wheezing or rhonchi or rales Abd: soft, NT, ND, +BS, no hepatosplenomegaly MS: right shoulder with anterior joint TTP with signs of instability with weakness with lift off testing and with supraspinatus testing. Intact biceps and triceps muscles, no pain at AC joint or GH joint, no swelling or skin changes. Negative impingement signs. Neuro: CN II-XII intact b/l, see above Skin: warm, dry, intact, No rashes or lesions on exposed skin. ASSESSMENT/PLAN: 1. Shoulder instability, right - ICD9: 718.81, ICD10: M25.311 (primary diagnosis) Xray and MRI as ordered, concerns for rotator cuff and labral tear on examination, no signs of dislocation, need for further testing and orthopedics follow up - XR SHOULDER ORTHO 4V AP/TRUE AP/LAT/OUTLET RIGHT - MRI SHOULDER WO IVCON RT 2. Nontraumatic complete tear of right rotator cuff - ICD9: 727.61, ICD10: M75.121 Xray and MRI as ordered, concerns for rotator cuff and labral tear on examination, no signs of dislocation, need for further testing and orthopedics follow up - XR SHOULDER ORTHO 4V AP/TRUE AP/LAT/OUTLET RIGHT - MRI SHOULDER WO IVCON RT 3. Acquired hypothyroidism - ICD9: 244.9, ICD10: E03.9 - Instructed patient on importance of taking on an empty stomach either first thing in the morning or at bedtime. - continue current dose of Synthroid Stable - Behavioral intervention and - Continue current medications - TSH BLD - T4 FREE/FREE THYROX - T3 FREE BLD 4. IFG (impaired fasting glucose) - ICD9: 790.21, ICD10: R73.01 Recheck labs as ordered. - HGB A1C - CBC + DIFF 5. Mixed hyperlipidemia - ICD9: 272.2, ICD10: E78.2 - suboptimal control - Encouraged following a low fat, low cholesterol diet. - Discussed the benefits of regular aerobic exercise and weight loss. - LIPID PANEL BASIC - CBC + DIFF 6. Essential hypertension - ICD9: 401.9, ICD10: I10 - good control - Encouraged dietary sodium restriction/DASH diet - Recommended regular aerobic exercise. - Recommend home blood pressure monitoring, to bring results in on next visit - Discussed need and benefit for weight loss. - Goal of BP <130/80 - COMP METABOLIC PANEL - C-REACTIVE PROTEIN (CRP) 7. Chronic right shoulder pain - ICD9: 719.41, 338.29, ICD10: M25.511, G89.29 Xray and MRI as ordered, concerns for rotator cuff and labral tear on examination, no signs of dislocation, need for further testing and orthopedics follow up - XR SHOULDER ORTHO 4V AP/TRUE AP/LAT/OUTLET RIGHT - MRI SHOULDER WO IVCON RT Efrain Peters DO To ER if develops chest pain, shortness of breath, or severe worsening of symptoms. Discussed risks, benefits, alternatives, and potential side effects of medications. Patient expressed understanding and agreed with the plan. Efrain Peters DO [address] [place] [address] documented in [address] encounterMer[facility]07-[facility]-2016 History of Past illness Narrative* Problem Noted Date Resolved Date Lumbar stenosis with neurogenic claudication 02/201604/20/2016 Lumbago 07/01/2015 12/25/2015 Spinal stenosis, lumbar annmarie on, without neurogenic claudication 06/17/2015 12/25/2015 Spinal stenosis of lumbosacral region 06/13/2015 12/25/2015 Medicare annual wellness visit, initial 11/13/19 15 04/25/2017 Spinal stenosis 04/17/2014 12/25/2015 Encounter for long-term (current) use of other m edications 04/17/2014 04/20/2016 Impaired fasting glucose 10/25/2012 017 Other and unspecified hyperlipidemia 04/25/2017 Unspecified essential hypertension 04/25/2017 Unspecified hypothyroidism 04/25 documented as of this encounter (statuses as of 11/29/2022) [facility] of Past illness Narrative* Problem Noted Date Resolved Date Lumbar stenosis with neurogenic claudication 02/201604/20/2016 Lumbago 07/01/2015 12/25/2015 Spinal stenosis, lumbar annmarie on, without neurogenic claudication 06/17/2015 12/25/2015 Spinal stenosis of lumbosacral region 06/13/2015 12/25/2015 Medicare annual wellness visit, initial 11/13/19 15 04/25/2017 Spinal stenosis 04/17/2014 12/25/2015 Encounter for long-term (current) use of other m edications 04/17/2014 04/20/2016 Impaired fasting glucose 10/25/2012 017 Other and unspecified hyperlipidemia 04/25/2017 Unspecified essential hypertension 04/25/2017 Unspecified hypothyroidism 04/25 documented as of this encounter (statuses as of 12/24/2022) [facility] of Past illness Narrative* Problem Noted Date Resolved Date Lumbar stenosis with neurogenic claudication 02/201604/20/2016 Lumbago 07/01/2015 12/25/2015 Spinal stenosis, lumbar annmarie on, without neurogenic claudication 06/17/2015 12/25/2015 Spinal stenosis of lumbosacral region 06/13/2015 12/25/2015 Medicare annual wellness visit, initial 11/13/19 15 04/25/2017 Spinal stenosis 04/17/2014 12/25/2015 Encounter for long-term (current) use of other m edications 04/17/2014 04/20/2016 Impaired fasting glucose 10/25/2012 017 Other and unspecified hyperlipidemia 04/25/2017 Unspecified essential hypertension 04/25/2017 Unspecified hypothyroidism 04/25 documented as of this encounter (statuses as of 01/31/2023) [facility] of Past illness Narrative* Problem Noted Date Resolved Date Lumbar stenosis with neurogenic claudication 02/201604/20/2016 Lumbago 07/01/2015 12/25/2015 Spinal stenosis, lumbar annmarie on, without neurogenic claudication 06/17/2015 12/25/2015 Spinal stenosis of lumbosacral region 06/13/2015 12/25/2015 Medicare annual wellness visit, initial 11/13/19 15 04/25/2017 Spinal stenosis 04/17/2014 12/25/2015 Encounter for long-term (current) use of other m edications 04/17/2014 04/20/2016 Impaired fasting glucose 10/25/2012 017 Other and unspecified hyperlipidemia 04/25/2017 Unspecified essential hypertension 04/25/2017 Unspecified hypothyroidism 04/25 documented as of this encounter (statuses as of 04/19/2023) [facility] of Past illness Narrative* Problem Noted Date Resolved Date Lumbar stenosis with neurogenic claudication 02/201604/20/2016 Lumbago 07/01/2015 12/25/2015 Spinal stenosis, lumbar annmarie on, without neurogenic claudication 06/17/2015 12/25/2015 Spinal stenosis of lumbosacral region 06/13/2015 12/25/2015 Medicare annual wellness visit, initial 11/13/19 15 04/25/2017 Spinal stenosis 04/17/2014 12/25/2015 Encounter for long-term (current) use of other m edications 04/17/2014 04/20/2016 Impaired fasting glucose 10/25/2012 017 Other and unspecified hyperlipidemia 04/25/2017 Unspecified essential hypertension 04/25/2017 Unspecified hypothyroidism 04/25 documented as of this encounter (statuses as of 04/22/2023) [facility] of [facility] illness Narrative* Problem Noted Date Diagnosed Date Resolved Date Lumbar stenosis with neurogenic claudication 6 04/20/2016 Lumbago 07/01/2015 12/25/2015 Spinal stenosis, lumbar annmarie on, without neurogenic claudication 06/17/2015 12/25/2015 Spinal stenosis of lumbosacral region 06/13/2015 12/25/2015 Medicare annual wellness visit, initial 11/13/2014 04/25/2017 Spinal stenosis 04/17/2014 12/25/2015 Encounter for long-term (cur rent) use of other medications 04/17/2014 04/20/2016 Impaired fasting glucose 10/25/201207/2017 Other and unspecified hyperlipidemia 04/25/2017 Unspecified essential hypertension 04/25/2017 Unspecified hypothyroidism 0 04/25/2017 documented as of this encounter (statuses as of 08/17/2023) [facility] of [facility] illness Narrative* Problem Noted Date Diagnosed Date Resolved Date Lumbar stenosis with neurogenic claudication 6 04/20/2016 Lumbago 07/01/2015 12/25/2015 Spinal stenosis, lumbar annmarie on, without neurogenic claudication 06/17/2015 12/25/2015 Spinal stenosis of lumbosacral region 06/13/2015 12/25/2015 Medicare annual wellness visit, initial 11/13/2014 04/25/2017 Spinal stenosis 04/17/2014 12/25/2015 Encounter for long-term (cur rent) use of other medications 04/17/2014 04/20/2016 Impaired fasting glucose 10/25/201207/2017 Other and unspecified hyperlipidemia 04/25/2017 Unspecified essential hypertension 04/25/2017 Unspecified hypothyroidism 0 04/25/2017 documented as of this encounter (statuses as of 08/21/2023) [facility] of [facility] illness Narrative* Problem Noted Date Diagnosed Date Resolved Date Lumbar stenosis with neurogenic claudication 6 04/20/2016 Lumbago 07/01/2015 12/25/2015 Spinal stenosis, lumbar annmarie on, without neurogenic claudication 06/17/2015 12/25/2015 Spinal stenosis of lumbosacral region 06/13/2015 12/25/2015 Medicare annual wellness visit, initial 11/13/2014 04/25/2017 Spinal stenosis 04/17/2014 12/25/2015 Encounter for long-term (cur rent) use of other medications 04/17/2014 04/20/2016 Impaired fasting glucose 10/25/201207/2017 Other and unspecified hyperlipidemia 04/25/2017 Unspecified essential hypertension 04/25/2017 Unspecified hypothyroidism 0 04/25/2017 documented as of this encounter (statuses as of 12/08/2023) [facility] of [facility] illness Narrative* Problem Noted Date Diagnosed Date Resolved Date Lumbar stenosis with neurogenic claudication 6 04/20/2016 Lumbago 07/01/2015 12/25/2015 Spinal stenosis, lumbar annmarie on, without neurogenic claudication 06/17/2015 12/25/2015 Spinal stenosis of lumbosacral region 06/13/2015 12/25/2015 Medicare annual wellness visit, initial 11/13/2014 04/25/2017 Spinal stenosis 04/17/2014 12/25/2015 Encounter for long-term (cur rent) use of other medications 04/17/2014 04/20/2016 Impaired fasting glucose 10/25/201207/2017 Other and unspecified hyperlipidemia 04/25/2017 Unspecified essential hypertension 04/25/2017 Unspecified hypothyroidism 0 04/25/2017 documented as of this encounter (statuses as of 12/15/2023) [facility] Jolly Puga [facility] Note Date/Time June 25, 2025 10:04am [facility] Medical Records Department [address] [place] [address] Counseling Note - Pharmacy 06/25/25928 MR#: [id number] Acct: [id number] Name: RUSSELL VAUGHN Rep #:[id number] : 1945 79 From: Jolly Puga PCP: Dr. Efrain Peters, DO Status:AD M SHARI Y Location: [address] [place] [address] Med Reconciliation Pharmacy Service has performed discharge medication reconciliation for this patient. The patient's discharge medication list was reviewed for discrepancies and discrepancies were resolved. Medications at Discharge Home Medications acetaminophen 325 mg tablet 650 mg (2 x 325 mg) PO Q6H PRN PRN Pain 1-10 Or Fever #0 tabs 11/20/24 levothyroxine 125 mcg tablet (Levoxyl) 125 mcg PO DAILY disorder of thyroid gland 06/24/25 06/25/25928 <Electronically signed by Jolly Puga> Date _ Jolly Puga Cosigner Signature (if applicable): Date CC: ~ Signed [facility] Work Phone: Evaluation note* Diagnosis Shoulder instability, right- Primary Nontraumatic complete tear of right rotator cuff Acquired hypothyroidism Unspecified hypothyroidism IFG (impaired fasting glucose) Impaired fasting glucose Mixed hyperlipidemia Essential hypertension Unspecified essential hypertension Chronic right shoulder pain Pain in joint, shoulder region [facility]er instability, right- Primary Nontraumatic complete tear of right rotator cuff [facility] Diagnosis Shoulder injury, right Tendonitis right rotator cuff [facility]* Diagnosis Shoulder instability, 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 Chronic right shoulder pain Pain in joint, shoulder region documented in this encounter [facility] note* Diagnosis Mixed hyperlipidemia- Primary Essential hypertension Unspecified essential hypertension IFG (impaired fasting glucose) Impaired fasting glucose Acquired hypothyroidism Unspecified hypothyroidism Actinic keratosis Gastroesophageal reflux disease without esophagitis Esophageal reflux documented in this encounter [facility] note* Diagnosis Shoulder instability, 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 documented in this encounter [facility] note* Diagnosis Mixed hyperlipidemia- Primary Essential hypertension Unspecified essential hypertension IFG (impaired fasting glucose) Impaired fasting glucose Acquired hypothyroidism Unspecified hypothyroidism Metabolic syndrome X Dysmetabolic Syndrome X documented in this encounter [facility] note* Diagnosis Urinary frequency- Primary documented in this encounter [facility] note* Diagnosis Generalized abdominal pain- Primary Abdominal pain, generalized Diarrhea, unspecified type documented in this encounter [facility] note* Diagnosis Pancreatic insufficiency- Primary Other specified disease of pancreas documented in this encounter [facility] note* Diagnosis Obstruction of bile duct documented in this encounter [facility] note* Diagnosis Altered bowel function- Primary Other symptoms involving digestive system Pancreatic insufficiency Other specified disease of pancreas Generalized abdominal pain Abdominal pain, generalized Mixed hyperlipidemia Essential hypertension Unspecified essential hypertension IFG (impaired fasting glucose) Impaired fasting glucose Acquired hypothyroidism Unspecified hypothyroidism Gastroesophageal reflux disease without esophagitis Esophageal reflux Vitamin D deficiency Unspecified vitamin D deficiency Vitamin B12 deficiency Other B-complex deficiencies Screening for prostate cancer Special screening for malignant neoplasm of prostate documented in this encounter [facility] note* Diagnosis 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 Malaise and fatigue Other malaise and fatigue documented in this encounter [facility] note* Diagnosis 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 documented in this encounter [facility] note* Diagnosis 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 documented in this encounter [facility] note* Diagnosis 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 documented in this encounter [facility] note* Diagnosis 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 documented in this encounter [facility] note* Diagnosis 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 documented in this encounter [facility] note* Diagnosis 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 [facility]* Diagnosis 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 documented in this encounter [facility] note* Diagnosis Cholangiocarcinoma (HCC) Malignant neoplasm of intrahepatic bile ducts documented in this encounter [facility] note* Diagnosis 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 documented in this encounter [facility] note* Diagnosis 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 Actinic keratosis documented in this encounter [facility] note* Diagnosis Cholangiocarcinoma (HCC) Malignant neoplasm of intrahepatic bile ducts [facility]* Diagnosis Gastroesophageal reflux disease without esophagitis- Primary Esophageal reflux Cholangiocarcinoma (HCC) Malignant neoplasm of intrahepatic bile ducts Overweight (BMI 25.0-29.9) Overweight documented in this encounter [facility] note* Diagnosis 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 [facility]* Diagnosis 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 documented in this encounter [facility] note* Diagnosis 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 documented in this encounter [facility] note* Diagnosis 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 documented in this encounter [facility] note* Diagnosis 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 Bilateral leg edema Edema documented in this encounter [facility] note* Diagnosis 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 documented [facility] this encounter [facility]* Diagnosis Preop examination- Primary Preoperative examination, unspecified Cholangiocarcinoma (HCC) Malignant neoplasm of intrahepatic bile ducts Acquired hypothyroidism Unspecified hypothyroidism * Assessment & Plan Note - Janna Wall APRN.CNP - 05/16/2025 7:18 AM EDT Associated Problem(s): Hypothyroidism On levothyroxine 125mcg 05/06/25 TSH 1.500 * Assessment & Plan Note - Janna Wall APRN.CNP - 05/16/2025 7:17 AM EDT Associated Problem(s): Cholangiocarcinoma (HCC) ERCP today * Assessment & Plan Note - Janna Wall APRN.CNP - 05/16/2025 7:17 AM EDT Associated Problem(s): Preop examination See note for medical conditions which may affect alfonso-operative course addressed in visit today. 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 documented in this encounter [facility] note* Diagnosis Preop examination- Primary Preoperative examination, unspecified Cholangiocarcinoma (HCC) Malignant neoplasm of intrahepatic bile ducts Acquired hypothyroidism Unspecified hypothyroidism 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 documented in this encounter [facility] note* Diagnosis Preop examination- Primary Preoperative examination, unspecified Cholangiocarcinoma (HCC) Malignant neoplasm of intrahepatic bile ducts Acquired hypothyroidism Unspecified hypothyroidism 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 documented in this encounter [facility] note* Diagnosis Preop examination- Primary Preoperative examination, unspecified Cholangiocarcinoma (HCC) Malignant neoplasm of intrahepatic bile ducts Acquired hypothyroidism Unspecified hypothyroidism Lower extremity edema- Primary Edema documented in this encounter [facility] note* Diagnosis Preop examination- Primary Preoperative examination, unspecified Cholangiocarcinoma (HCC) Malignant neoplasm of intrahepatic bile ducts Acquired hypothyroidism Unspecified hypothyroidism Cholangiocarcinoma (HCC) Malignant neoplasm of intrahepatic bile ducts documented in this encounter [facility] note* Diagnosis Preop examination- Primary Preoperative examination, unspecified Cholangiocarcinoma (HCC) Malignant neoplasm of intrahepatic bile ducts Acquired hypothyroidism Unspecified hypothyroidism 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 * Upper GI Endoscopy Discharge Instructions (Cypriot) * [facility] ([place]yp[place] Diagnostic Procedure Only (Routine) - Closed Specialty Diagnoses / Procedures Referred By Nancyac t Referred To Contact XR IMAGING Diagnoses Shoulder instability, 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 Chronic right shoulder pain Procedures XR SHOULDER ORTHO 4V AP/TRUE AP/LAT/OUTLET RIGHT RADEX SHOULDER COMPLETE MINIMUM 2 VIEWS Efrain Peters, DO [address] [place] [address] [place] [address] Referral ID Status Reason Start Date Expiration Date V isits Requested Visits Authorized [id number] Closed Auto-Generate d Referral 11/29/2022 12/29/2023 1 1 [facility] for referral (narrative)No reason for referral information availableWLutheran Hospital Work Phone: Reason for visit Narrative* Diagnostic Procedure Only (Routine) - Closed Specialty Diagnoses / Procedures Referred By Chloe t Referred To Contact XR IMAGING Diagnoses Shoulder instability, 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 Chronic right shoulder pain Procedures XR SHOULDER ORTHO 4V AP/TRUE AP/LAT/OUTLET RIGHT RADEX SHOULDER COMPLETE MINIMUM 2 VIEWS Efrain Peters, DO [address] [place] [address] [place] [address] Referral ID Status Reason Start Date Expiration Date V isits Requested Visits Authorized [id number] Closed Auto-Generate d Referral 11/29/2022 12/29/2023 1 1 [facility] for visit Narrative* Auth/Cert (Routine) Specialty Diagnoses / Procedures Referred By Chloe t Referred To Contact Diagnoses Obstruction of bile duct Procedures WI ESOPHAGOSCOPY FLEXIBLE TRANSORAL ULTRASOUND EXAM ESOPHAGOSCOPIC ULTRASOUND EXAM Brayan Herrera MD [address] [place] [address] Phone: tel: fax: [facility] Endoscopy [address] [place] [address] Phone: tel: Referral ID Status Reason Start Date Expiration Date Visits Re quested Visits Authorized [id number] 1 1 [facility] for visit Narrative* [place] Prior Authorization (Routine) - Authorized Specialty Diagnoses / Procedures [facility] Referred To Contact Diagnoses Cholangiocarcinoma (HCC) Procedures GEMCITABINE HCL, 200 MG CISPLATIN 10 MG INJECTION FOSAPREPITANT INJECTION PALONOSETRON HCL INJ., DURVALUMAB, 10 MG Onel Dumont MD [address] [place] [address] Phone: tel: Onel Dumont MD [address] [place] [address] Phone: tel: Referral ID Status Reason Start Date Expiration Date V isits Requested Visits Authorized [id number] Authorized 01/02/2025 10/16/2025 99 99 [facility] for visit Narrative* MRI/CT (Routine) - Closed Specialty Diagnoses / Procedures [facility] Referred To Contact CT IMAGING Diagnoses Cholangiocarcinoma (HCC) Procedures CT CHEST W IVCON DIAGNOSTIC COMPUTED TOMOGRAPHY THORAX W/CONTRAST Casie Barragan [address] [place] [address] Phone: tel: fax: [facility] [place] [address] Referral ID Status Reason Start Date Expiration Date V isits Requested Visits Authorized [id number] Closed Auto-Generate d Referral 02/25/2025 03/27/2026 1 1 [facility] for visit Narrative* MRI/CT (Routine) - Closed Specialty Diagnoses / Procedures [facility] Referred To Contact MR IMAGING Diagnoses Cholangiocarcinoma (HCC) Procedures MRI LIVER WO/W IVCON MRI ABDOMEN W/O & W/CONTRAST MATERIAL Onel Dumont MD [address] [place] [address] Phone: tel: MR IMAGING [facility] Referral ID Status Reason Start Date Expiration Date V isits Requested Visits Authorized [id number] Closed Auto-Generate d Referral 03/21/2025 04/20/2026 1 1 [facility] for visit Narrative* Outpatient Procedure (Routine) - Closed Specialty Diagnoses / Procedures [facility] Referred To Contact [facility] Diagnoses Cholangiocarcinoma (HCC) Procedures ERCP ERCP BILIARY/PANC DUCT STENT EXCHANGE W/DIL&WIRE Debra Woods MD [address] [place] [address] Phone: tel: fax: [facility] [address] [place] [address] Referral ID Status Reason Start Date Expiration Date V isits Requested Visits Authorized [id number] Closed Auto-Generate d Referral 04/17/2025 04/17/2026 [address] [facility] N[facility]* Diagnostic Procedure Only (Routine) - Closed Specialty Diagnoses / Procedures Referred By Contac t Referred To Contact RADIO MRI [facility] Diagnoses Cholangiocarcinoma (HCC) Procedures MRI LIVER (EOVIST) WO/W IVCON Onel Dumont MD [address] [place] [address] Phone: tel: Radiology [address] [place] [address] Phone: tel: fax: Referral ID Status Reason Start Date Expiration Date Visits Re quested Visits Authorized [id number] Closed 06/04/2025 08/03/2025 [address] [facility] Reason for Referral Specialty Diagnoses / Procedures Referred By Contac t Referred To Contact MR IMAGING Diagnoses Shoulder instability, 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 Chronic right shoulder pain Procedures MRI SHOULDER WO IVCON RT MRI ANY JT UPPER EXTREMITY W/O CONTRAST MATRL Efrain Peters DO [address] [place] [address] Mr Imaging Referral ID Status Reason Start Date Expiration Date Visits Requested Visits Authorized [id number] Authorized Auto-Generat ed Referral 11/29/2022 12/29/2023 1 1 Specialty Diagnoses / Procedures Referred By Contac t Referred To Contact XR IMAGING Diagnoses Shoulder instability, 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 Chronic right shoulder pain Procedures XR SHOULDER ORTHO 4V AP/TRUE AP/LAT/OUTLET RIGHT RADEX SHOULDER COMPLETE MINIMUM 2 VIEWS Efrain Peters DO [address] [place] [address] Xr Imaging Referral ID Status Reason Start Date Expiration Date V isits Requested Visits Authorized [id number] Closed Auto-Generate d Referral 11/29/2022 12/29/2023 1 1 Specialty Diagnoses / Procedures Referred By Nancyac t Referred To Contact Orthopedics Diagnoses Shoulder instability, 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 Procedures CONSULT TO ORTHOPAEDICS OFFICE/OUTPATIENT [facility] 60-74 MINUTES Efrain Peters, DO [address] [place] [address] Referral ID Status Reason Start Date Expiration Date Visits Requested Visits Authorized [id number] Pending Review PCP Requested Referral 12/23/2022 12/23/2023 1 1 Specialty Diagnoses / Procedures Referred By Chloe t Referred To Contact MR IMAGING Diagnoses Shoulder instability, 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 Chronic right shoulder pain Procedures MRI SHOULDER WO IVCON RT MRI ANY JT UPPER EXTREMITY W/O CONTRAST MATRL Efrain Peters, DO [address] [place] [address] [place] [address] Referral ID Status Reason Start Date Expiration Date V isits Requested Visits Authorized [id number] Closed Auto-Generate d Referral 11/29/2022 12/29/2023 1 1 Specialty Diagnoses / Procedures Referred By Chloe t Referred To Contact Gastroenterology Diagnoses Pancreatic insufficiency Procedures CONSULT TO GASTROENTEROLOGY OFFICE/OUTPATIENT [facility] 60 MINUTES Efrain Peters, DO [address] [place] [address] Referral ID Status Reason Start Date Expiration Date Visits Requested Visits Authorized [id number] Authorized PCP Requested Referral 10/12/2025 1 1 Advance Directives Date Activated Date Inactivated Comments 12/05/2024 10:54 AM 12/05/2024 6:06 PM Advance Directive Response Recorded Date/ Time Living Will Yes October 24 3:48pm Power of Cotton Roll Packer Yes October 24 025 3:48pm Name of Medical Power of Cotton Roll Packer October 24, 2024 3:48pm Living Will No October 25 9:55am Power of Cotton Roll Packer No October 25, 2 025 9:55am Living Will Yes December 19, 2024 5:08pm Power of Cotton Roll Packer Yes December 19 5:08pm Name of Medical Power of Cotton Roll Packer GOLDY HERNADEZ December 19, 2024 5:08pm Living Will Yes October 25 10:30am Power of Cotton Roll Packer Yes October 25, 2 025 10:30am Name of Medical Power of Cotton Roll Packer Louis Oden October 25, 2024 10:30am Living Will Yes November 18 3:45am Power of Cotton Roll Packer Yes November 18, 2024 3:45am Name of Medical Power of Cotton Roll Packer Goldy November 18, 2024 3:45am Living Will No December 17, 2024 4:49pm Power of Cotton Roll Packer No December 17 4:49pm Documents on File Type Date Recorded Patient Community Representative Expl anation Advance Directive(s) 05/30/2025 1:36 PM Advance Directive(s) 05/28/2025 12:21 PM Documents on File Type Date Recorded Patient Community Representative Expl anation Advance Directive(s) 05/30/2025 1:36 PM Advance Directive(s) 05/28/2025 12:21 PM Advance Directive Response Recorded Date/ Time Do you have a Healthcare Power of Cotton Roll Packer? No June 24, 2025 9:46am Advance Directive Response Recorded Date/ Time Do you have a Healthcare Power of Cotton Roll Packer? Yes June 24, 2025 5:36pm Summary Purpose Family History Relationship Condition Age at Onset Recorded Date/T fabrizio mother Asthma Unknown father Cardiac disease Unknown High blood cholesterol Unknown Chief Complaint and Reason for Visit Chief Complaint Admit Date Pancreatic insufficiency October 24 7:50am RUQ ABD PAIN, JAUNDICE October 24, 2024 8:54am JAUNDICE October 24, 2024 2: 00pm ERCP October 25, 2024 8: 37am PREOP October 25, 2024 9: 30am ACUTE CHOLECYSTITIS, ASCENDING CHOLANGIT IS AFTER November 18, 2024 2:00am ACUTE CHOLECYSTITIS, ASCENDING CHOLANGIT IS AFTER November 18, 2024 9:34am ACUTE CHOLECYSTITIS, ASCENDING CHOLANGIT IS AFTER November 18, 2024 4:20pm ACUTE CHOLECYSTITIS, ASCENDING CHOLANGIT IS AFTER November 19, 2024 7:25am ACUTE CHOLECYSTITIS, ASCENDING CHOLANGIT IS AFTER November 19, 2024 7:36am ACUTE CHOLECYSTITIS, ASCENDING CHOLANGIT IS AFTER November 19, 2024 7:41am ACUTE CHOLECYSTITIS, ASCENDING CHOLANGIT IS AFTER November 19, 2024 4:25pm ACUTE CHOLECYSTITIS, ASCENDING CHOLANGIT IS AFTER November 20, 2024 7:12am ACUTE CHOLECYSTITIS, ASCENDING CHOLANGIT IS AFTER November 20, 2024 7:46am GALLBLADDER December 12, 2024 1:27pm Laparoscopic, Cholecystectomy with IOC M arch 2024 6:01am Laparoscopic, Cholecystectomy with IOC M arch 2024 7:01am Reason for Visit Admit Date RUQ abdominal pain October 24, 2024 7: 50am Jaundice October 24, 2024 7: 50am RUQ abdominal pain October 25, 2024 9: 12am Jaundice October 25, 2024 9: 12am Choledocholithiasis October 25, 2024 9: 12am Obstructive jaundice October 25, 2024 9 :12am History of biliary duct stent placement November 18, 2024 2:00am Hyperbilirubinemia November 18, 2024 2 :00am Transaminitis November 18, 2024 2 :00am Acute cholecystitis with acute cholangit is November 18, 2024 2:00am Acute metabolic encephalopathy November 18, 2024 2:00am Ascending cholangitis November 18, 2024 2:00am Fever November 18, 2024 2 :00am Hepatitis November 18, 2024 2 :00am Jaundice November 18, 2024 2 :00am Lactic acidosis November 18, 2024 2 :00am Pneumobilia November 18, 2024 2 :00am Respiratory insufficiency November 18, 2024 2:00am Sepsis November 18, 2024 2 :00am Biliary stricture December 12, 2024 1:27pm Change in stool caliber December 12, 2 025 1:27pm History of biliary duct stent placement December 12, 2024 1:27pm Chief Complaint Admit Date LUMP AT INCISION January 02, 2025 8:5 7am 1 UNIT PRBC April 24, 2025 10:48 am Reason for Visit Admit Date 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 Confidentiality of Alcohol and Drug Abuse Patient Records regulations: The Federal rules restrict any use of the information to criminally investigate or prosecute any alcohol or drug abuse patient.[facility] the event this information is protected by the Federal Confidentiality of Alcohol and Drug Abuse Patient Records regulations: The Federal rules restrict any use of the information to criminally investigate or prosecute any alcohol or drug abuse patient.[facility] the event this information is protected by the Federal Confidentiality of Alcohol and Drug Abuse Patient Records regulations: The Federal rules restrict any use of the information to criminally investigate or prosecute any alcohol or drug abuse patient.[facility] Center[facility] the event this information is protected by the Federal Confidentiality of Alcohol and Drug Abuse Patient Records regulations: The Federal rules restrict any use of the information to criminally investigate or prosecute any alcohol or drug abuse patient.[facility] Center[facility] the event this information is protected by the Federal Confidentiality of Alcohol and Drug Abuse Patient Records regulations: The Federal rules restrict any use of the information to criminally investigate or prosecute any alcohol or drug abuse patient.[facility] Center[facility] the event this information is protected by the Federal Confidentiality of Alcohol and Drug Abuse Patient Records regulations: The Federal rules restrict any use of the information to criminally investigate or prosecute any alcohol or drug abuse patient.[facility] Center[facility] the event this information is protected by the Federal Confidentiality of Alcohol and Drug Abuse Patient Records regulations: The Federal rules restrict any use of the information to criminally investigate or prosecute any alcohol or drug abuse patient.[facility] CenterIn the event this information is protected by the Federal Confidentiality of Alcohol and Drug Abuse Patient Records regulations: The Federal rules restrict any use of the information to criminally investigate or prosecute any alcohol or drug abuse patient.[facility] Center[facility] the event this information is protected by the Federal Confidentiality of Alcohol and Drug Abuse Patient Records regulations: The Federal rules restrict any use of the information to criminally investigate or prosecute any alcohol or drug abuse patient.[facility] CenterIn the event this information is protected by the Federal Confidentiality of Alcohol and Drug Abuse Patient Records regulations: The Federal rules restrict any use of the information to criminally investigate or prosecute any alcohol or drug abuse patient.[facility] CenterIn the event this information is protected by the Federal Confidentiality of Alcohol and Drug Abuse Patient Records regulations: The Federal rules restrict any use of the information to criminally investigate or prosecute any alcohol or drug abuse patient.[facility] CenterIn the event this information is protected by the Federal Confidentiality of Alcohol and Drug Abuse Patient Records regulations: The Federal rules restrict any use of the information to criminally investigate or prosecute any alcohol or drug abuse patient.[facility] CenterIn the event this information is protected by the Federal Confidentiality of Alcohol and Drug Abuse Patient Records regulations: The Federal rules restrict any use of the information to criminally investigate or prosecute any alcohol or drug abuse patient.[facility] CenterIn the event this information is protected by the Federal Confidentiality of Alcohol and Drug Abuse Patient Records regulations: The Federal rules restrict any use of the information to criminally investigate or prosecute any alcohol or drug abuse patient.[facility] CenterIn the event this information is protected by the Federal Confidentiality of Alcohol and Drug Abuse Patient Records regulations: The Federal rules restrict any use of the information to criminally investigate or prosecute any alcohol or drug abuse patient.[facility] CenterIn the event this information is protected by the Federal Confidentiality of Alcohol and Drug Abuse Patient Records regulations: The Federal rules restrict any use of the information to criminally investigate or prosecute any alcohol or drug abuse patient.[facility] CenterIn the event this information is protected by the Federal Confidentiality of Alcohol and Drug Abuse Patient Records regulations: The Federal rules restrict any use of the information to criminally investigate or prosecute any alcohol or drug abuse patient.[facility] CenterIn the event this information is protected by the Federal Confidentiality of Alcohol and Drug Abuse Patient Records regulations: The Federal rules restrict any use of the information to criminally investigate or prosecute any alcohol or drug abuse patient.[facility] CenterIn the event this information is protected by the Federal Confidentiality of Alcohol and Drug Abuse Patient Records regulations: The Federal rules restrict any use of the information to criminally investigate or prosecute any alcohol or drug abuse patient.[facility] CenterIn the event this information is protected by the Federal Confidentiality of Alcohol and Drug Abuse Patient Records regulations: The Federal rules restrict any use of the information to criminally investigate or prosecute any alcohol or drug abuse patient.[facility] CenterIn the event this information is protected by the Federal Confidentiality of Alcohol and Drug Abuse Patient Records regulations: The Federal rules restrict any use of the information to criminally investigate or prosecute any alcohol or drug abuse patient.[facility] CenterIn the event this information is protected by the Federal Confidentiality of Alcohol and Drug Abuse Patient Records regulations: The Federal rules restrict any use of the information to criminally investigate or prosecute any alcohol or drug abuse patient.[facility] CenterIn the event this information is protected by the Federal Confidentiality of Alcohol and Drug Abuse Patient Records regulations: The Federal rules restrict any use of the information to criminally investigate or prosecute any alcohol or drug abuse patient.[facility] CenterIn the event this information is protected by the Federal Confidentiality of Alcohol and Drug Abuse Patient Records regulations: The Federal rules restrict any use of the information to criminally investigate or prosecute any alcohol or drug abuse patient.[facility] CenterIn the event this information is protected by the Federal Confidentiality of Alcohol and Drug Abuse Patient Records regulations: The Federal rules restrict any use of the information to criminally investigate or prosecute any alcohol or drug abuse patient.[facility] CenterIn the event this information is protected by the Federal Confidentiality of Alcohol and Drug Abuse Patient Records regulations: The Federal rules restrict any use of the information to criminally investigate or prosecute any alcohol or drug abuse patient.[facility] CenterIn the event this information is protected by the Federal Confidentiality of Alcohol and Drug Abuse Patient Records regulations: The Federal rules restrict any use of the information to criminally investigate or prosecute any alcohol or drug abuse patient.[facility] CenterIn the event this information is protected by the Federal Confidentiality of Alcohol and Drug Abuse Patient Records regulations: The Federal rules restrict any use of the information to criminally investigate or prosecute any alcohol or drug abuse patient.[facility] CenterIn the event this information is protected by the Federal Confidentiality of Alcohol and Drug Abuse Patient Records regulations: The Federal rules restrict any use of the information to criminally investigate or prosecute any alcohol or drug abuse patient.[facility] CenterIn the event this information is protected by the Federal Confidentiality of Alcohol and Drug Abuse Patient Records regulations: The Federal rules restrict any use of the information to criminally investigate or prosecute any alcohol or drug abuse patient.[facility] CenterIn the event this information is protected by the Federal Confidentiality of Alcohol and Drug Abuse Patient Records regulations: The Federal rules restrict any use of the information to criminally investigate or prosecute any alcohol or drug abuse patient.[facility] CenterIn the event this information is protected by the Federal Confidentiality of Alcohol and Drug Abuse Patient Records regulations: The Federal rules restrict any use of the information to criminally investigate or prosecute any alcohol or drug abuse patient.[facility] CenterIn the event this information is protected by the Federal Confidentiality of Alcohol and Drug Abuse Patient Records regulations: The Federal rules restrict any use of the information to criminally investigate or prosecute any alcohol or drug abuse patient.[facility] CenterIn the event this information is protected by the Federal Confidentiality of Alcohol and Drug Abuse Patient Records regulations: The Federal rules restrict any use of the information to criminally investigate or prosecute any alcohol or drug abuse patient.[facility] CenterIn the event this information is protected by the Federal Confidentiality of Alcohol and Drug Abuse Patient Records regulations: The Federal rules restrict any use of the information to criminally investigate or prosecute any alcohol or drug abuse patient.[facility] CenterIn the event this information is protected by the Federal Confidentiality of Alcohol and Drug Abuse Patient Records regulations: The Federal rules restrict any use of the information to criminally investigate or prosecute any alcohol or drug abuse patient.[facility] CenterIn the event this information is protected by the Federal Confidentiality of Alcohol and Drug Abuse Patient Records regulations: The Federal rules restrict any use of the information to criminally investigate or prosecute any alcohol or drug abuse patient.[facility] CenterIn the event this information is protected by the Federal Confidentiality of Alcohol and Drug Abuse Patient Records regulations: The Federal rules restrict any use of the information to criminally investigate or prosecute any alcohol or drug abuse patient.[facility] CenterIn the event this information is protected by the Federal Confidentiality of Alcohol and Drug Abuse Patient Records regulations: The Federal rules restrict any use of the information to criminally investigate or prosecute any alcohol or drug abuse patient.[facility] CenterIn the event this information is protected by the Federal Confidentiality of Alcohol and Drug Abuse Patient Records regulations: The Federal rules restrict any use of the information to criminally investigate or prosecute any alcohol or drug abuse patient.[facility] CenterIn the event this information is protected by the Federal Confidentiality of Alcohol and Drug Abuse Patient Records regulations: The Federal rules restrict any use of the information to criminally investigate or prosecute any alcohol or drug abuse patient.[facility] CenterIn the event this information is protected by the Federal Confidentiality of Alcohol and Drug Abuse Patient Records regulations: The Federal rules restrict any use of the information to criminally investigate or prosecute any alcohol or drug abuse patient.[facility] CenterIn the event this information is protected by the Federal Confidentiality of Alcohol and Drug Abuse Patient Records regulations: The Federal rules restrict any use of the information to criminally investigate or prosecute any alcohol or drug abuse patient.[facility] CenterIn the event this information is protected by the Federal Confidentiality of Alcohol and Drug Abuse Patient Records regulations: The Federal rules restrict any use of the information to criminally investigate or prosecute any alcohol or drug abuse patient.[facility] CenterIn the event this information is protected by the Federal Confidentiality of Alcohol and Drug Abuse Patient Records regulations: The Federal rules restrict any use of the information to criminally investigate or prosecute any alcohol or drug abuse patient.[facility] CenterIn the event this information is protected by the Federal Confidentiality of Alcohol and Drug Abuse Patient Records regulations: The Federal rules restrict any use of the information to criminally investigate or prosecute any alcohol or drug abuse patient.[facility] CenterIn the event this information is protected by the Federal Confidentiality of Alcohol and Drug Abuse Patient Records regulations: The Federal rules restrict any use of the information to criminally investigate or prosecute any alcohol or drug abuse patient.[facility] CenterIn the event this information is protected by the Federal Confidentiality of Alcohol and Drug Abuse Patient Records regulations: The Federal rules restrict any use of the information to criminally investigate or prosecute any alcohol or drug abuse patient.[facility] CenterIn the event this information is protected by the Federal Confidentiality of Alcohol and Drug Abuse Patient Records regulations: The Federal rules restrict any use of the information to criminally investigate or prosecute any alcohol or drug abuse patient.[facility] CenterIn the event this information is protected by the Federal Confidentiality of Alcohol and Drug Abuse Patient Records regulations: The Federal rules restrict any use of the information to criminally investigate or prosecute any alcohol or drug abuse patient.[facility] CenterIn the event this information is protected by the Federal Confidentiality of Alcohol and Drug Abuse Patient Records regulations: The Federal rules restrict any use of the information to criminally investigate or prosecute any alcohol or drug abuse patient.[facility] CenterIn the event this information is protected by the Federal Confidentiality of Alcohol and Drug Abuse Patient Records regulations: The Federal rules restrict any use of the information to criminally investigate or prosecute any alcohol or drug abuse patient.[facility] CenterIn the event this information is protected by the Federal Confidentiality of Alcohol and Drug Abuse Patient Records regulations: The Federal rules restrict any use of the information to criminally investigate or prosecute any alcohol or drug abuse patient.[facility] CenterIn the event this information is protected by the Federal Confidentiality of Alcohol and Drug Abuse Patient Records regulations: The Federal rules restrict any use of the information to criminally investigate or prosecute any alcohol or drug abuse patient.[facility] CenterIn the event this information is protected by the Federal Confidentiality of Alcohol and Drug Abuse Patient Records regulations: The Federal rules restrict any use of the information to criminally investigate or prosecute any alcohol or drug abuse patient.[facility] CenterIn the event this information is protected by the Federal Confidentiality of Alcohol and Drug Abuse Patient Records regulations: The Federal rules restrict any use of the information to criminally investigate or prosecute any alcohol or drug abuse patient.[facility] CenterIn the event this information is protected by the Federal Confidentiality of Alcohol and Drug Abuse Patient Records regulations: The Federal rules restrict any use of the information to criminally investigate or prosecute any alcohol or drug abuse patient.[facility] CenterIn the event this information is protected by the Federal Confidentiality of Alcohol and Drug Abuse Patient Records regulations: The Federal rules restrict any use of the information to criminally investigate or prosecute any alcohol or drug abuse patient.[facility] CenterIn the event this information is protected by the Federal Confidentiality of Alcohol and Drug Abuse Patient Records regulations: The Federal rules restrict any use of the information to criminally investigate or prosecute any alcohol or drug abuse patient.[facility] CenterIn the event this information is protected by the Federal Confidentiality of Alcohol and Drug Abuse Patient Records regulations: The Federal rules restrict any use of the information to criminally investigate or prosecute any alcohol or drug abuse patient.[facility] CenterIn the event this information is protected by the Federal Confidentiality of Alcohol and Drug Abuse Patient Records regulations: The Federal rules restrict any use of the information to criminally investigate or prosecute any alcohol or drug abuse patient.[facility] CenterIn the event this information is protected by the Federal Confidentiality of Alcohol and Drug Abuse Patient Records regulations: The Federal rules restrict any use of the information to criminally investigate or prosecute any alcohol or drug abuse patient.[facility] CenterIn the event this information is protected by the Federal Confidentiality of Alcohol and Drug Abuse Patient Records regulations: The Federal rules restrict any use of the information to criminally investigate or prosecute any alcohol or drug abuse patient.[facility] CenterIn the event this information is protected by the Federal Confidentiality of Alcohol and Drug Abuse Patient Records regulations: The Federal rules restrict any use of the information to criminally investigate or prosecute any alcohol or drug abuse patient.[facility] Reason for Visit (unrecogniz ed section and content) Reason Comments Chemotherapy Treatment Specialty Diagnoses / Procedures Referred By Contac t Referred To Contact Diagnoses Cholangiocarcinoma (HCC) Procedures GEMCITABINE HCL, 200 MG CISPLATIN 10 MG INJECTION FOSAPREPITANT INJECTION PALONOSETRON HCL INJ., DURVALUMAB, 10 MG Onel Dumont MD [address] [place] [address] Phone: tel: Onel Dumont MD [address] [place] [address] Phone: tel: Referral ID Status Reason Start Date Expiration Date Visits Requested Visits Authorized [id number] Authorized Patient Cleared - Admin/Chairm an/Director advise to proceed or did not respond 01/02/2025 10/01/2025 99 99 Reason Comments Chemotherapy Treatment Treatment paramet ers not met Referral ID Status Reason Start Date Expiration Date V isits Requested Visits Authorized [id number] Authorized 01/02/2025 10/16/2025 99 99 Reason Comments Yearly Exam Reason Comments Results Reason Comments New Pain Specialty Diagnoses / Procedures Referred By Chloe roman Referred To Contact Orthopedics Diagnoses Shoulder instability, 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 Procedures CONSULT TO ORTHOPAEDICS OFFICE/OUTPATIENT NEW HIGH MDM 60-74 MINUTES Efrain Peters, DO [address] [place] [address] Referral ID Status Reason Start Date Expiration Date Visits Requested Visits Authorized [id number] Pending Review PCP Requested Referral 12/23/2022 12/23/2023 1 1 Reason Comments Results Reason Onset Date Comments Population Health Navigation Outreach 04/21/2023 [employer] care gaps Reason Comments Patient Question Patient Update Specialty Diagnoses / Procedures Referred By Chloe roman Referred To Contact MR IMAGING Diagnoses Shoulder instability, 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 Chronic right shoulder pain Procedures MRI SHOULDER WO IVCON RT MRI ANY JT UPPER EXTREMITY W/O CONTRAST MATRL Efrain Peters, DO [address] [place] [address] [place] [address] Referral ID Status Reason Start Date Expiration Date V isits Requested Visits Authorized [id number] Closed Auto-Generate d Referral 11/29/2022 12/29/2023 1 1 Reason Comments Yearly Exam Reason Onset Date Comments Refill Request 12/14/2023 Reason Comments Urinary Problem Frequency, flank reji n abd pain x 2-3 weeks Diarrhea X loose stools Reason Comments Patient Update Reason Comments Patient Question Reason Comments Hospital Follow Up Reason Comments rx sent locally was to go to mail away p harmacy Reason Comments Orders need for oncology referral Reason Comments New Patient Reason Comments Care Coordination Introduction Reason Comments avs 12/31 Reason Comments Patient Update Cataract Surgery Reason Comments Care Coordination CYCLE 1/DAY 1 POST T REATMENT CALL Reason Comments Established Patient Reason Comments Nutrition Assessment Reason Comments Radiology CT Specialty Diagnoses / Procedures Referred By Chloe roman Referred To Contact CT IMAGING Diagnoses Cholangiocarcinoma (HCC) Procedures CT CHEST W IVCON DIAGNOSTIC COMPUTED TOMOGRAPHY THORAX W/CONTRAST Casie Barragan [address] [place] [address] Phone: tel: fax: [place] [address] Referral ID Status Reason Start Date Expiration Date V isits Requested Visits Authorized [id number] Closed Auto-Generate d Referral 02/25/2025 03/27/2026 1 1 Reason Comments Established Patient Reason Comments Nutrition Counseling Reason Comments Established Patient Reason Comments Appointment Reason Comments avs 04/15 Reason Comments Transfusion Reason Comments Care Coordination Upcoming treatment Reason Comments Orders Patient Update Reason Comments Erroneous encounter-disregard Reason Comments 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 [place] [address] PCP - General Family Medicine 11/06/18 Clinical Care Leader Relationship Specialty Start Date End Date Efrain Peters DO [address] [facility] [place] [address] PCP - General Family Medicine 11/06/18 Clinical Care Leader Relationship Specialty Start Date End Date Efrain Peters DO [address] [facility] [place] [address] PCP - General Family Medicine 11/06/18 Clinical Care Leader Relationship Specialty Start Date End Date Efrain Peters DO [address] [facility] [place] [address] PCP - General Family Medicine 11/06/18 Clinical Care Leader Relationship Specialty Start Date End Date Efrain Peters DO [address] [facility] [place] [address] PCP - General Family Medicine 11/06/18 Clinical Care Leader Relationship Specialty Start Date End Date Efrain Peters DO [address] [facility] [place] [address] PCP - General Family Medicine 11/06/18 Clinical Care Leader Relationship Specialty Start Date End Date Efrain Peters DO [address] [facility] [place] [address] PCP - General Family Medicine 11/06/18 Clinical Care Leader Relationship Specialty Start Date End Date Efrain Peters DO [address] [place] [address] PCP - General Family Medicine 11/06/18 Clinical Care Leader Relationship Specialty Start Date End Date Efrain Peters DO [address] [place] [address] PCP - General Family Medicine 11/06/18 Marcia Santos, ANESTHESIOLOGY TEACHER.LANDCARE OFFICER [address] [place] [address] Delivery Coordinator Family Medicine 09/23/24 Marisa Allen, ANESTHESIOLOGY TEACHER.LANDCARE OFFICER [address] [place] [address] Delivery Coordinator Family Medicine 09/23/24 Clinical Care Leader Relationship Specialty Start Date End Date Efrain Peters DO [address] [place] [address] PCP - General Family Medicine 11/06/18 Marcia Santos, ANESTHESIOLOGY TEACHER.LANDCARE OFFICER [address] [place] [address] Delivery Coordinator Family Medicine 09/23/24 Marisa Allen, ANESTHESIOLOGY TEACHER.LANDCARE OFFICER [address] [place] [address] Delivery Coordinator Family Medicine 09/23/24 Clinical Care Leader Relationship Specialty Start Date End Date Efrain Peters DO [address] [place] [address] PCP - General Family Medicine 11/06/18 Marcia Santos, ANESTHESIOLOGY TEACHER.LANDCARE OFFICER [address] [place] [address] Delivery Coordinator Family Medicine 09/23/24 Marisa Aleln, ANESTHESIOLOGY TEACHER.LANDCARE OFFICER [address] [place] [address] Delivery Coordinator Family Medicine 09/23/24 Clinical Care Leader Relationship Specialty Start Date End Date Efrain Peters DO [address] [place] [address] PCP - General Family Medicine 11/06/18 Marcia Santos, ANESTHESIOLOGY TEACHER.LANDCARE OFFICER [address] [place] [address] Delivery Coordinator Family Medicine 09/23/24 Marisa Allen, ANESTHESIOLOGY TEACHER.LANDCARE OFFICER [address] [place] [address] [facility] 09/[facility]/24 Clinical Care Leader Relationship Specialty Start Date End Date Efrain Peters DO [address] [place] [address] PCP - General Family Medicine 11/06/18 Marcia Santos, ANESTHESIOLOGY TEACHER.LANDCARE OFFICER [address] [place] [address] Delivery Coordinator Family Medicine 09/23/24 Marisa Allen, ANESTHESIOLOGY TEACHER.LANDCARE OFFICER [address] [place] [address] [facility] 09/23/24 Clinical Care Leader Relationship Specialty Start Date End Date Efrain Peters DO [address] [place] [address] PCP - General Family Medicine 11/06/18 Marcia Santos, ANESTHESIOLOGY TEACHER.LANDCARE OFFICER [address] [place] [address] [facility]We[facility] 09/23/24 [facility] HospitalMar[facility], ANESTHESIOLOGY TEACHER.LANDCARE OFFICER [address] [facility] [place] [address] [facility] 09/23/24 Clinical Care Leader Relationship Specialty Start Date End Date Efrain Peters DO [address] [facility] [place] [address] PCP - General Family Medicine 11/06/18 Marcia Santos, ANESTHESIOLOGY TEACHER.LANDCARE OFFICER [address] [facility] [place] [address] [facility]We[facility] 09/23/24 TiffanyMarisa, ANESTHESIOLOGY TEACHER.LANDCARE OFFICER [address] [facility] [place] [address] [facility] 09/23/24 Clinical Care Leader Relationship Specialty Start Date End Date Efrain Peters DO [address] [facility] [address] PCP - General Family Medicine 11/06/18 Marcia Santos, ANESTHESIOLOGY TEACHER.LANDCARE OFFICER [address] [facility] [place] [address] [facility]We[facility] 09/23/24 Marisa Allen, ANESTHESIOLOGY TEACHER.LANDCARE OFFICER [address] [place] [address] Delivery Coordinator Family Medicine 09/23/24 Quan Myers DO [address] [facility] [address] [place] [address] Gastroenterology 12/31/24 12/31/24 Mike Malagon MD [address] [facility] [address] [place] [address] General Surgery 12/31/24 Onel Dumont MD [address] [facility] [address] Hematology/Oncology 12/31/24 Dione Witt, HIMANSHU [address] [facility] [place] [address] Specialty Paint Roller Winder Hematology/Oncology 12/31/24 Clinical Care Leader Relationship Specialty Start Date End Date Efrain Peters DO [address] [place] [address] PCP - General Family Medicine 11/06/18 Marcia Santos, ANESTHESIOLOGY TEACHER.LANDCARE OFFICER [address] [facility] [place] [address] Delivery Coordinator Family Medicine 09/23/24 Marisa Allen, ANESTHESIOLOGY TEACHER.LANDCARE OFFICER [address] [place] [address] Delivery Coordinator Family Medicine 09/23/24 Quan Myers DO [address] [facility] [address] [place] [address] Gastroenterology 12/31/24 12/31/24 Mike Malagon MD [address] [facility] [address] [place] [address] General Surgery 12/31/24 Onel Dumont MD [address] [place] [address] Hematology/Oncology 12/31/24 Dione Witt, HIMANSHU [address] [place] [address] Specialty Paint Roller Winder Hematology/Oncology 12/31/24 Clinical Care Leader Relationship Specialty Start Date End Date Efrain Peters DO [address] [facility] [place] [address] PCP - General Family Medicine 11/06/18 Marcia Santos, ANESTHESIOLOGY TEACHER.LANDCARE OFFICER [address] [facility] [place] [address] Delivery Coordinator Family Medicine 09/23/24 Marisa Allen APRN.LANDCARE OFFICER [address] [facility] [place] [address] Delivery Coordinator Family Medicine 09/23/24 Quan Myers DO [address] [facility] [address] [place] [address] Gastroenterology 12/31/24 12/31/24 Mike Malagon MD [address] [facility] [address] [place] [address] General Surgery 12/31/24 Onel Dumont MD [address] [place], [place] [id number] Hematology/Oncology 12/31/24 Dione Witt, RN [address] [facility] [address] [place], [place] [address] Specialty Paint Roller Winder Hematology/Oncology 12/31/24 Team Status: Active Member Role Status Dates Dr. Efrain Peters DO Primary Care Provider Active Team Status: Inactive Member Role Status Dates Dr. Efrain Peters DO Primary Care Provider Active Start: October 24, 2024 End: October 24, 2024 Dr. Efrain Peters DO Referring Provider Active Start: October 24, 2024 End: October 24, 2024 GABE Florentino Attending Provider Active Start: October 24, 2024 End: October 24, 2024 Team Status: Inactive Member Role Status Dates Dr. Efrain Peters DO Primary Care Provider Active Start: October 24, 2024 End: October 24, 2024 GABE Florentino Attending Provider Active Start: October 24, 2024 End: October 24, 2024 GABE Florentino Referring Provider Active Start: October 24, 2024 End: October 24, 2024 Team Status: Inactive Member Role Status Dates Dr. Efrain Peters DO Primary Care Provider Active Start: October 24, 2024 End: October 24, 2024 Dr. Molly Lizarraga DO Attending Provider Active Start: October 24, 2024 End: October 24, 2024 Dr. Molly Lizarraga DO Emergency Provider Active Start: October 24, 2024 End: October 24, 2024 Team Status: Inactive Member Role Status Dates Dr. Efrain Peters DO Primary Care Provider Active Start: October 25, 2024 End: October 25, 2024 Barney Serna MD Attending Provider Active Star t: October 25, 2024 End: October 25, 2024 Barney Serna MD Emergency Provider Active Star t: October 25, 2024 End: October 25, 2024 Team Status: Inactive Member Role Status Dates Dr. Efrain Peters DO Primary Care Provider Active Start: October 25, 2024 End: October 25, 2024 Dr. Efrain Peters DO Referring Provider Active Start: October 25, 2024 End: October 25, 2024 Dr. Quan Myers DO Attending Provider Active Start: October 25, 2024 End: October 25, 2024 Team Status: Active Member Role Status Dates Dr. Efrain Peters DO Primary Care Provider Active Start: October 25, 2024 End: October 25, 2024 Dr. Efrain Peters DO Referring Provider Active Start: October 25, 2024 End: October 25, 2024 Dr. Juan Perez MD Attending Provider Active S tart: October 25, 2024 End: October 25, 2024 Team Status: Active Member Role Status Dates Dr. Efrain Peters DO Primary Care Provider Active Start: October 25, 2024 Dr. Efrain Peters DO Referring Provider Active Start: October 25, 2024 Dr. Quan Myers DO Attending Provider Active Start: October 25, 2024 Dr. Quan Myers DO Other Provider Active St art: October 25, 2024 Team Status: Inactive Member Role Status Dates Dr. Efrain Peters DO Primary Care Provider Active Start: October 30, 2024 End: October 30, 2024 GABE Florentino Attending Provider Active Start: October 30, 2024 End: October 30, 2024 GABE Florentino Referring Provider Active Start: October 30, 2024 End: October 30, 2024 Team Status: Inactive Member Role Status Dates Dr. Efrain Peters DO Primary Care Provider Active Start: November 18, 2024 End: November 20, 2024 Dr. Molly Lizarraga DO Referring Provider Active Start: November 18, 2024 End: November 20, 2024 Dr. Molly Lizarraga DO Emergency Provider Active Start: November 18, 2024 End: November 20, 2024 Dr. Camilo Blanc DO Admit Provider Active Start: November 18, 2024 End: November 20, 2024 Dr. Camilo Blanc DO Other Provider Active Start: November 18, 2024 End: November 20, 2024 Dr. Camilo Upton MD Attending Provider Active Start: November 18, 2024 End: November 20, 2024 Dr. Sheyla Newton DO Other Provider Active Start : November 18, 2024 End: November 20, 2024 Dr. Mike Malagon MD Other Provider Active Start: November 18, 2024 End: November 20, 2024 Dr. Zion Irving MD Other Provider Active Start: November 18, 2024 End: November 20, 2024 Dr. Sancho Gordon MD Other Provider Active Start: November 18, 2024 End: November 20, 2024 Dr. Tunde Wills MD Other Provider Active Star t: November 18, 2024 End: November 20, 2024 Dr. Piter Wynn DO Other Provider Active Start : November 18, 2024 End: November 20, 2024 Dr. Camilo Gutierrez MD Other Provider Active Sta rt: November 18, 2024 End: November 20, 2024 Dr. Wyatt Sparks MD Other Provider Active St art: November 18, 2024 End: November 20, 2024 Dr. Declan Petersen MD Other Provider Active S tart: November 18, 2024 End: November 20, 2024 Dr. Candace Willams MD Other Provider Active Start: November 18, 2024 End: November 20, 2024 Dr. Lambert Gann MD Other Provider Active Start : November 18, 2024 End: November 20, 2024 Dr. Cornelius Reilly MD Other Provider Active Start: November 18, 2024 End: November 20, 2024 Dr. Ravi Conde MD Other Provider Active Start : November 18, 2024 End: November 20, 2024 Dr. Rosalba Hatfield MD Other Provider Active Star t: November 18, 2024 End: November 20, 2024 Dr. Luisa Rogers MD Other Provider Active Sta rt: November 18, 2024 End: November 20, 2024 Dr. Johnna Ray MD Other Provider Active Sta rt: November 18, 2024 End: November 20, 2024 Dr. Joce Johnson MD Other Provider Active Star t: November 18, 2024 End: November 20, 2024 Dr. Jordin Zhang MD Other Provider Active St art: November 18, 2024 End: November 20, 2024 Dr. Kemal Olsen MD Other Provider Active Star t: November 18, 2024 End: November 20, 2024 Dr. Dick Frankel DO Other Provider Active St art: November 18, 2024 End: November 20, 2024 Dr. Gabino Womack MD Other Provider Active Start: November 18, 2024 End: November 20, 2024 Dr. Mickey Méndez MD Other Provider Active St art: November 18, 2024 End: November 20, 2024 Dr. Dmitriy Vyas DO Other Provider Active Start: November 18, 2024 End: November 20, 2024 Dr. Mike Mitchell MD Other Provider Active Star t: November 18, 2024 End: November 20, 2024 Dr. Jacky Rosa MD Other Provider Active Sta rt: November 18, 2024 End: November 20, 2024 Team Status: Active Member Role Status Dates Dr. Efrain Peters , Primary Care Provider Active Start: November 18, 2024 Dr. Molly Lizarraga DO Referring Provider Active Start: November 18, 2024 Dr. Molly Lizarraga DO Emergency Provider Active Start: November 18, 2024 Dr. Camilo Blanc DO Admit Provider Active Start: November 18, 2024 Dr. Camilo Blanc DO Other Provider Active Start: November 18, 2024 Dr. Sheyla Newton DO Other Provider Active Start : November 18, 2024 Dr. Zion Irving MD Other Provider Active Start: November 18, 2024 Dr. Sancho Gordon MD Other Provider Active Start: November 18, 2024 Dr. Tunde Wills MD Other Provider Active Star t: November 18, 2024 Dr. Piter Wynn DO Other Provider Active Start : November 18, 2024 Dr. Camilo Gutierrez MD Other Provider Active Sta rt: November 18, 2024 Dr. Wyatt Sparks MD Other Provider Active St art: November 18, 2024 Dr. Declan Petersen MD Other Provider Active S tart: November 18, 2024 Dr. Candace Willams MD Other Provider Active Start: November 18, 2024 Dr. Lambert Gann MD Other Provider Active Start : November 18, 2024 Dr. Cornelius Reilly MD Other Provider Active Start: November 18, 2024 Dr. Ravi Conde MD Other Provider Active Start : November 18, 2024 Dr. Rosalba Hatfield MD Other Provider Active Star t: November 18, 2024 Dr. Luisa Rogers MD Other Provider Active Sta rt: November 18, 2024 Dr. Johnna Ray MD Other Provider Active Sta rt: November 18, 2024 Dr. Joce Johnson MD Other Provider Active Star t: November 18, 2024 Dr. Jordin Zhang MD Other Provider Active St art: November 18, 2024 Dr. Kemal Olsen MD Other Provider Active Star t: November 18, 2024 Dr. Dick Frankel DO Other Provider Active St art: November 18, 2024 Dr. Gabino Womack MD Other Provider Active Start: November 18, 2024 Dr. Mickey Méndez MD Other Provider Active St art: November 18, 2024 Dr. Dmitriy Vyas DO Other Provider Active Start: November 18, 2024 Dr. Mike Mitchell MD Other Provider Active Star t: November 18, 2024 Dr. Jacky Rosa MD Other Provider Active Sta rt: November 18, 2024 Dr. Mike Malagon MD Attending Provider Active Start: November 18, 2024 Dr. Mike Malagon MD Other Provider Active Start: November 18, 2024 Team Status: Active Member Role Status Dates Dr. Efrain Peters DO Primary Care Provider Active Start: November 18, 2024 Dr. Molly Lizarraga DO Referring Provider Active Start: November 18, 2024 Dr. Molly Lizarraga DO Emergency Provider Active Start: November 18, 2024 Dr. Camilo Blanc DO Admit Provider Active Start: November 18, 2024 Dr. Camilo Blanc DO Other Provider Active Start: November 18, 2024 Dr. Zion Irving MD Other Provider Active Start: November 18, 2024 Dr. Sancho Gordon MD Other Provider Active Start: November 18, 2024 Dr. Tunde Wills MD Other Provider Active Star t: November 18, 2024 Dr. Piter Wynn DO Other Provider Active Start : November 18, 2024 Dr. Camilo Gutierrez MD Other Provider Active Sta rt: November 18, 2024 Dr. Wyatt Sparks MD Other Provider Active St art: November 18, 2024 Dr. Declan Petersen MD Other Provider Active S tart: November 18, 2024 Dr. Candace Willams MD Other Provider Active Start: November 18, 2024 Dr. Lambert Gann MD Other Provider Active Start : November 18, 2024 Dr. Cornelius Reilly MD Other Provider Active Start: November 18, 2024 Dr. Ravi Conde MD Other Provider Active Start : November 18, 2024 Dr. Rosalba Hatfield MD Other Provider Active Star t: November 18, 2024 Dr. Luisa Rogers MD Other Provider Active Sta rt: November 18, 2024 Dr. Johnna Ray MD Other Provider Active Sta rt: November 18, 2024 Dr. Joce Johnson MD Other Provider Active Star t: November 18, 2024 Dr. Jordin Zhang MD Other Provider Active St art: November 18, 2024 Dr. Kemal Olsen MD Other Provider Active Star t: November 18, 2024 Dr. Dick Frankel DO Other Provider Active St art: November 18, 2024 Dr. Gabino Womack MD Other Provider Active Start: November 18, 2024 Dr. Mickey Méndez MD Other Provider Active St art: November 18, 2024 Dr. Dmitriy Vyas DO Other Provider Active Start: November 18, 2024 Dr. Mike Mitchell MD Other Provider Active Star t: November 18, 2024 Dr. Jacky Rosa MD Other Provider Active Sta rt: November 18, 2024 Dr. Miek Malagon MD Other Provider Active Start: November 18, 2024 Dr. Camilo Upton MD Other Provider Active Star t: November 18, 2024 Dr. Sheyla Newton DO Other Provider Active Start : November 18, 2024 Dr. Quan Myers DO Attending Provider Active Start: November 18, 2024 Team Status: Active Member Role Status Dates Dr. Efrain Peters DO Primary Care Provider Active Start: November 19, 2024 Dr. Molly Lizarraga DO Referring Provider Active Start: November 19, 2024 Dr. Molly Lizarraga DO Emergency Provider Active Start: November 19, 2024 Dr. Camilo Blanc DO Admit Provider Active Start: November 19, 2024 Dr. Camilo Blanc DO Other Provider Active Start: November 19, 2024 Dr. Zion Irving MD Other Provider Active Start: November 19, 2024 Dr. Sancho Gordon MD Other Provider Active Start: November 19, 2024 Dr. Tunde Wills MD Other Provider Active Star t: November 19, 2024 Dr. Piter Wynn , Other Provider Active Start : November 19, 2024 Dr. Camilo Gutierrez MD Other Provider Active Sta rt: November 19, 2024 Dr. Wyatt Sparks MD Other Provider Active St art: November 19, 2024 Dr. Declan Petersen MD Other Provider Active S tart: November 19, 2024 Dr. Candace Willams MD Other Provider Active Start: November 19, 2024 Dr. Lambert Gann MD Other Provider Active Start : November 19, 2024 Dr. Cornelius Reilly MD Other Provider Active Start: November 19, 2024 Dr. Ravi Conde MD Other Provider Active Start : November 19, 2024 Dr. Rosalba Hatfield MD Other Provider Active Star t: November 19, 2024 Dr. Luisa Rogers MD Other Provider Active Sta rt: November 19, 2024 Dr. Johnna Ray MD Other Provider Active Sta rt: November 19, 2024 Dr. Joce Johnson MD Other Provider Active Star t: November 19, 2024 Dr. Jordin Zhang MD Other Provider Active St art: November 19, 2024 Dr. Kemal Olsen MD Other Provider Active Star t: November 19, 2024 Dr. Dick Frankel , Other Provider Active St art: November 19, 2024 Dr. Gabino Womack MD Other Provider Active Start: November 19, 2024 Dr. Mickey Méndez MD Other Provider Active St art: November 19, 2024 Dr. Dmitriy Vyas , Other Provider Active Start: November 19, 2024 Dr. Mike Mitchell MD Other Provider Active Star t: November 19, 2024 Dr. Jacky Rosa MD Other Provider Active Sta rt: November 19, 2024 Dr. Mike Malagon MD Attending Provider Active Start: November 19, 2024 Dr. Mike Malagon MD Other Provider Active Start: November 19, 2024 Dr. Camilo Upton MD Other Provider Active Star t: November 19, 2024 Dr. Sheyla Newton , Other Provider Active Start : November 19, 2024 Team Status: Active Member Role Status Dates Dr. Efrain Peters , DO Primary Care Provider Active Start: November 19, 2024 Dr. Molly Lizarraga DO Referring Provider Active Start: November 19, 2024 Dr. Molly Lizarraga DO Emergency Provider Active Start: November 19, 2024 Dr. Camilo Blanc DO Admit Provider Active Start: November 19, 2024 Dr. Camilo Blanc DO Other Provider Active Start: November 19, 2024 Dr. Zion Irving MD Other Provider Active Start: November 19, 2024 Dr. Sancho Gordon MD Other Provider Active Start: November 19, 2024 Dr. Tunde Wills MD Other Provider Active Star t: November 19, 2024 Dr. Piter Wynn DO Attending Provider Active S tart: November 19, 2024 Dr. Piter Wynn DO Other Provider Active Start : November 19, 2024 Dr. Camilo Gutierrez MD Other Provider Active Sta rt: November 19, 2024 Dr. Wyatt Sparks MD Other Provider Active St art: November 19, 2024 Dr. Declan Petersen MD Other Provider Active S tart: November 19, 2024 Dr. Candace Willams MD Other Provider Active Start: November 19, 2024 Dr. Lambert Gann MD Other Provider Active Start : November 19, 2024 Dr. Cornelius Reilly MD Other Provider Active Start: November 19, 2024 Dr. Ravi Conde MD Other Provider Active Start : November 19, 2024 Dr. Rosalba Hatfield MD Other Provider Active Star t: November 19, 2024 Dr. Luisa Rogers MD Other Provider Active Sta rt: November 19, 2024 Dr. Johnna Ray MD Other Provider Active Sta rt: November 19, 2024 Dr. Joce Johnson MD Other Provider Active Star t: November 19, 2024 Dr. Jordin Zhang MD Other Provider Active St art: November 19, 2024 Dr. Kemal Olsen MD Other Provider Active Star t: November 19, 2024 Dr. Dick Frankel DO Other Provider Active St art: November 19, 2024 Dr. Gabino Womack MD Other Provider Active Start: November 19, 2024 Dr. Mickey Méndez MD Other Provider Active St art: November 19, 2024 Dr. Dmitriy Vyas DO Other Provider Active Start: November 19, 2024 Dr. Mike Mitchell MD Other Provider Active Star t: November 19, 2024 Dr. Jacky Rosa MD Other Provider Active Sta rt: November 19, 2024 Dr. Mike Malagon MD Other Provider Active Start: November 19, 2024 Dr. Camilo Upton MD Other Provider Active Star t: November 19, 2024 Dr. Sheyla Newton DO Other Provider Active Start : November 19, 2024 Team Status: Active Member Role Status Dates Dr. Efrain Peters , Primary Care Provider Active Start: November 19, 2024 Dr. Molly Lizarraga DO Emergency Provider Active Start: November 19, 2024 Dr. Camilo Blanc DO Admit Provider Active Start: November 19, 2024 Dr. Camilo Blanc DO Other Provider Active Start: November 19, 2024 Dr. Zion Irving MD Other Provider Active Start: November 19, 2024 Dr. Sancho Gordon MD Other Provider Active Start: November 19, 2024 Dr. Tunde Wills MD Other Provider Active Star t: November 19, 2024 Dr. Piter Wynn DO Other Provider Active Start : November 19, 2024 Dr. Camilo Gutierrez MD Other Provider Active Sta rt: November 19, 2024 Dr. Wyatt Sparks MD Other Provider Active St art: November 19, 2024 Dr. Declan Petersen MD Other Provider Active S tart: November 19, 2024 Dr. Candace Willams MD Other Provider Active Start: November 19, 2024 Dr. Lambert Gann MD Other Provider Active Start : November 19, 2024 Dr. Cornelius Reilly MD Other Provider Active Start: November 19, 2024 Dr. Ravi Conde MD Other Provider Active Start : November 19, 2024 Dr. Rosalba Hatfield MD Other Provider Active Star t: November 19, 2024 Dr. Luisa Rogers MD Other Provider Active Sta rt: November 19, 2024 Dr. Johnna Ray MD Other Provider Active Sta rt: November 19, 2024 Dr. Joce Johnson MD Other Provider Active Star t: November 19, 2024 Dr. Jordin Zhang MD Other Provider Active St art: November 19, 2024 Dr. Kemal Olsen MD Other Provider Active Star t: November 19, 2024 Dr. Dick Frankel , Other Provider Active St art: November 19, 2024 Dr. Gabino Womack MD Other Provider Active Start: November 19, 2024 Dr. Mickey Méndez MD Other Provider Active St art: November 19, 2024 Dr. Dmitriy Vyas DO Other Provider Active Start: November 19, 2024 Dr. Mike Mitchell MD Other Provider Active Star t: November 19, 2024 Dr. Jacky Rosa MD Other Provider Active Sta rt: November 19, 2024 Dr. Mike Malagon MD Other Provider Active Start: November 19, 2024 Dr. Camilo Upton MD Attending Provider Active Start: November 19, 2024 Dr. Camilo Upton MD Other Provider Active Star t: November 19, 2024 Dr. Sheyla Newton DO Other Provider Active Start : November 19, 2024 Team Status: Active Member Role Status Dates Dr. Efrain Peters DO Primary Care Provider Active Start: November 19, 2024 Dr. Molly Lizarraga DO Referring Provider Active Start: November 19, 2024 Dr. Molly Lizarraga DO Emergency Provider Active Start: November 19, 2024 Dr. Camilo Blanc DO Admit Provider Active Start: November 19, 2024 Dr. Camilo Blanc DO Other Provider Active Start: November 19, 2024 Dr. Zion Irving MD Other Provider Active Start: November 19, 2024 Dr. Sancho Gordon MD Other Provider Active Start: November 19, 2024 Dr. Tunde Wills MD Other Provider Active Star t: November 19, 2024 Dr. Piter Wynn DO Other Provider Active Start : November 19, 2024 Dr. Camilo Gutierrez MD Other Provider Active Sta rt: November 19, 2024 Dr. Wyatt Sparks MD Other Provider Active St art: November 19, 2024 Dr. Declan Petersen MD Other Provider Active S tart: November 19, 2024 Dr. Candace Willams MD Other Provider Active Start: November 19, 2024 Dr. Lambert Gann MD Other Provider Active Start : November 19, 2024 Dr. Cornelius Reilly MD Other Provider Active Start: November 19, 2024 Dr. Ravi Conde MD Other Provider Active Start : November 19, 2024 Dr. Rosalba Hatfield MD Other Provider Active Star t: November 19, 2024 Dr. Luisa Rogers MD Other Provider Active Sta rt: November 19, 2024 Dr. Johnna Ray MD Other Provider Active Sta rt: November 19, 2024 Dr. Joce Johnson MD Other Provider Active Star t: November 19, 2024 Dr. Jordin Zhang MD Other Provider Active St art: November 19, 2024 Dr. Kemal Olsen MD Other Provider Active Star t: November 19, 2024 Dr. Dick Frankel , Other Provider Active St art: November 19, 2024 Dr. Gabino Womack MD Other Provider Active Start: November 19, 2024 Dr. Mickey Méndez MD Other Provider Active St art: November 19, 2024 Dr. Dmitriy Vyas DO Other Provider Active Start: November 19, 2024 Dr. Mike Mitchell MD Other Provider Active Star t: November 19, 2024 Dr. Jacky Rosa MD Other Provider Active Sta rt: November 19, 2024 Dr. Mike Malagon MD Other Provider Active Start: November 19, 2024 Dr. Camilo Upton MD Other Provider Active Star t: November 19, 2024 Dr. Sheyla Newton DO Other Provider Active Start : November 19, 2024 Dr. Quan Myers DO Attending Provider Active Start: November 19, 2024 Team Status: Active Member Role Status Dates Dr. Efrain Peters , DO Primary Care Provider Active Start: November 20, 2024 Dr. Molly Lizarraga , Emergency Provider Active Start: November 20, 2024 Dr. Camilo Blanc DO Admit Provider Active Start: November 20, 2024 Dr. Camilo Blanc DO Other Provider Active Start: November 20, 2024 Dr. Camilo Upton MD Attending Provider Active Start: November 20, 2024 Dr. Camilo Upton MD Other Provider Active Star t: November 20, 2024 Dr. Sheyla Newton DO Other Provider Active Start : November 20, 2024 Dr. Mike Malagon MD Other Provider Active Start: November 20, 2024 Dr. Zion Irving MD Other Provider Active Start: November 20, 2024 Dr. Sancho Gordon MD Other Provider Active Start: November 20, 2024 Dr. Tunde Wills MD Other Provider Active Star t: November 20, 2024 Dr. Piter Wynn , Other Provider Active Start : November 20, 2024 Dr. Camilo Gutierrez MD Other Provider Active Sta rt: November 20, 2024 Dr. Wyatt Sparks MD Other Provider Active St art: November 20, 2024 Dr. Declan Petersen MD Other Provider Active S tart: November 20, 2024 Dr. Candace Willams MD Other Provider Active Start: November 20, 2024 Dr. Lambert Gann MD Other Provider Active Start : November 20, 2024 Dr. Cornelius Reilly MD Other Provider Active Start: November 20, 2024 Dr. Ravi Conde MD Other Provider Active Start : November 20, 2024 Dr. Rosalba Hatfield MD Other Provider Active Star t: November 20, 2024 Dr. Luisa Rogers MD Other Provider Active Sta rt: November 20, 2024 Dr. Johnna Ray MD Other Provider Active Sta rt: November 20, 2024 Dr. Joce Johnson MD Other Provider Active Star t: November 20, 2024 Dr. Jordin Zhang MD Other Provider Active St art: November 20, 2024 Dr. Kemal Olsen MD Other Provider Active Star t: November 20, 2024 Dr. Dick Frankel , Other Provider Active St art: November 20, 2024 Dr. Gabino Womack MD Other Provider Active Start: November 20, 2024 Dr. Mickey Méndez MD Other Provider Active St art: November 20, 2024 Dr. Dmitriy Vyas DO Other Provider Active Start: November 20, 2024 Dr. Mike Mitchell MD Other Provider Active Star t: November 20, 2024 Dr. Jacky Rosa MD Other Provider Active Sta rt: November 20, 2024 Team Status: Active Member Role Status Dates Dr. Efrain Peters DO Primary Care Provider Active Start: November 20, 2024 Dr. Molly Lizarraga DO Referring Provider Active Start: November 20, 2024 Dr. Molly Lizarraga DO Emergency Provider Active Start: November 20, 2024 Dr. Camilo de Kirill , DO Admit Provider Active Start: November 20, 2024 Dr. Camilo Blanc , Other Provider Active Start: November 20, 2024 Dr. Camilo Upton MD Other Provider Active Star t: November 20, 2024 Dr. Sheyla Newton , Other Provider Active Start : November 20, 2024 Dr. Mike Malagon MD Attending Provider Active Start: November 20, 2024 Dr. Mike Malagon MD Other Provider Active Start: November 20, 2024 Dr. Zion Irving MD Other Provider Active Start: November 20, 2024 Dr. Sancho Gordon MD Other Provider Active Start: November 20, 2024 Dr. Tunde Wills MD Other Provider Active Star t: November 20, 2024 Dr. Piter Wynn , Other Provider Active Start : November 20, 2024 Dr. Camilo Gutierrez MD Other Provider Active Sta rt: November 20, 2024 Dr. Wyatt Sparks MD Other Provider Active St art: November 20, 2024 Dr. Declan Petersen MD Other Provider Active S tart: November 20, 2024 Dr. Candace Willams MD Other Provider Active Start: November 20, 2024 Dr. Lambert Gann MD Other Provider Active Start : November 20, 2024 Dr. Cornelius Reilly MD Other Provider Active Start: November 20, 2024 Dr. Ravi Conde MD Other Provider Active Start : November 20, 2024 Dr. Rosalba Hatfield MD Other Provider Active Star t: November 20, 2024 Dr. Luisa Rogers MD Other Provider Active Sta rt: November 20, 2024 Dr. Johnna Ray MD Other Provider Active Sta rt: November 20, 2024 Dr. Joce Johnson MD Other Provider Active Star t: November 20, 2024 Dr. Jordin Zhang MD Other Provider Active St art: November 20, 2024 Dr. Kemal Olsen MD Other Provider Active Star t: November 20, 2024 Dr. Dick Frankel DO Other Provider Active St art: November 20, 2024 Dr. Gabino Womack MD Other Provider Active Start: November 20, 2024 Dr. Mickey Méndez MD Other Provider Active St art: November 20, 2024 Dr. Dmitriy Vysa DO Other Provider Active Start: November 20, 2024 Dr. Mike Mitchell MD Other Provider Active Star t: November 20, 2024 Dr. Jacky Rosa MD Other Provider Active Sta rt: November 20, 2024 Team Status: Inactive Member Role Status Dates Dr. Efrain Peters DO Primary Care Provider Active Start: December 12, 2024 End: December 12, 2024 Dr. Efrain Peters DO Referring Provider Active Start: December 12, 2024 End: December 12, 2024 Dr. Mike Malagon MD Attending Provider Active Start: December 12, 2024 End: December 12, 2024 Team Status: Inactive Member Role Status Dates Dr. Efrain Peters DO Primary Care Provider Active Start: December 18, 2024 End: December 18, 2024 Dr. Efrain Peters DO Referring Provider Active Start: December 18, 2024 End: December 18, 2024 Dr. Mike Malagon MD Attending Provider Active Start: December 18, 2024 End: December 18, 2024 Team Status: Active Member Role Status Dates Dr. Efrain Peters DO Primary Care Provider Active Start: December 18, 2024 Dr. Efrain Peters DO Referring Provider Active Start: December 18, 2024 Dr. Mike Malagon MD Attending Provider Active Start: December 18, 2024 Dr. Mike Malagon MD Other Provider Active Start: December 18, 2024 Team Status: Inactive Member Role Status Dates Dr. Efrain Peters DO Primary Care Provider Active Start: December 25, 2024 End: December 25, 2024 Dr. Miek Malagon MD Attending Provider Active Start: December 25, 2024 End: December 25, 2024 Dr. Mike Malagon MD Referring Provider Active Start: December 25, 2024 End: December 25, 2024 Team Status: Active Member Role Status Dates Dr. Efrain Peters DO Primary Care Provider Active Start: December 25, 2024 Dr. Mike Malagon MD Attending Provider Active Start: December 25, 2024 Dr. Mike Malagon MD Referring Provider Active Start: December 25, 2024 Dr. Mike Malagon MD Other Provider Active Start: December 25, 2024 Clinical Care Leader Relationship Specialty Start Date End Date Efrain Peters DO [address] [place] [address] PCP - General Family Medicine 11/06/18 Marisa Allen APRN.LANDCARE OFFICER [address] [place] [address] Delivery Coordinator Family Medicine 09/23/24 Mike Malagon MD [address] [place] [address] General Surgery 12/31/24 Onel Dumont MD [address] [place] [address] Hematology/Oncology 12/31/24 Dione Witt, HIMANSHU [address] [place] [address] Specialty Paint Roller Winder Hematology/Oncology 12/31/24 Clinical Care Leader Relationship Specialty Start Date End Date Efrain Peters DO [address] [place] [address] PCP - General Family Medicine 11/06/18 Marisa Allen, ANESTHESIOLOGY TEACHER.LANDCARE OFFICER [address] [place] [address] Delivery Coordinator Family Medicine 09/23/24 Mike Malagon MD [address] [place] [address] General Surgery 12/31/24 Onel Dumont MD [address] [place] [address] Hematology/Oncology 12/31/24 Dione Witt RN [address] [place] [address] Specialty Paint Roller Winder Hematology/Oncology 12/31/24 Clinical Care Leader Relationship Specialty Start Date End Date Efrain Peters DO [address] [facility] [place] [address] PCP - General Family Medicine 11/06/18 Marisa Allen, ANESTHESIOLOGY TEACHER.LANDCARE OFFICER [address] [place] [address] Delivery Coordinator Family Medicine 09/23/24 Mike Malagon MD [address] [place] [address] General Surgery 12/31/24 Onel Dumont MD [address] [place] [address] Hematology/Oncology 12/31/24 Dione Witt RN [address] [place] [address] Specialty Paint Roller Winder Hematology/Oncology 12/31/24 Clinical Care Leader Relationship Specialty Start Date End Date Efrain Peters DO [address] [place] [address] PCP - General Family Medicine 11/06/18 Marisa Allen, ANESTHESIOLOGY TEACHER.LANDCARE OFFICER [address] [place] [address] Delivery Coordinator Family Medicine 09/23/24 Mike Malagon MD [address] [facility] [address] [place] [address] General Surgery 12/31/24 Onel Dumont MD [address] [place] [address] Hematology/Oncology 12/31/24 Dione Witt, HIMANSHU [address] [place] [address] Specialty Paint Roller Winder Hematology/Oncology 12/31/24 Clinical Care Leader Relationship Specialty Start Date End Date Efrain Peters DO [address] [place] [address] PCP - General Family Medicine 11/06/18 Marisa Allen APRN.LANDCARE OFFICER [address] [place] [address] Delivery Coordinator Family Medicine 09/23/24 Mike Malagon MD [address] [facility] [address] [place] [address] General Surgery 12/31/24 Onel Dumont MD [address] [place] [address] Hematology/Oncology 12/31/24 Dione Witt, HIMANSHU [address] [place] [address] Specialty Paint Roller Winder Hematology/Oncology 12/31/24 Clinical Care Leader Relationship Specialty Start Date End Date Efrain Peters DO [address] [place] [address] PCP - General Family Medicine 11/06/18 [facility] ANESTHESIOLOGY TEACHER.LANDCARE OFFICER [address] [place] [address] Delivery Coordinator Family [facility] 09/23/24 Mike Malagon MD [address] [place] [address] General Surgery 12/31/24 Onel Dumont MD [address] [place] [address] Hematology/Oncology 12/31/24 Dione Witt, HIMANSHU [address] [place] [address] Specialty Paint Roller Winder Hematology/Oncology 12/31/24 Clinical Care Leader Relationship Specialty Start Date End Date Efrain Peters DO [address] [place] [address] PCP - General Family Medicine 11/06/18 [facility], ANESTHESIOLOGY TEACHER.LANDCARE OFFICER [address] [place] [address] [facility] 09/23/24 Mike Malagon MD [address] [place] [address] General Surgery 12/31/24 Onel Dumont MD [address] [place] [address] Hematology/Oncology 12/31/24 Dione Witt, HIMANSHU [address] [place] [address] Specialty Paint Roller Winder Hematology/Oncology 12/31/24 Clinical Care Leader Relationship Specialty Start Date End Date Efrain Peters DO [address] [place] [address] PCP - General Family Medicine 11/06/18 Marisa Allen, ANESTHESIOLOGY TEACHER.LANDCARE OFFICER [address] [place] [address] Delivery Coordinator Family Medicine 09/23/24 Mike Malagon MD [address] [place] [address] General Surgery 12/31/24 Onel Dumont MD [address] [place] [address] Hematology/Oncology 12/31/24 Dione Witt, HIMANSHU [address] [place] [address] Specialty Paint Roller Winder Hematology/Oncology 12/31/24 Clinical Care Leader Relationship Specialty Start Date End Date Efrain Peters DO [address] [place] [address] PCP - General Family Medicine 11/06/18 Marisa Allen, ANESTHESIOLOGY TEACHER.LANDCARE OFFICER [address] [place] [address] Delivery Coordinator Family Medicine 09/23/24 Mike Malagon MD [address] [place] [address] General Surgery 12/31/24 Onel Dumont MD [address] [place] [address] Hematology/Oncology 12/31/24 Dione Witt, HIMANSHU [address] [place] [address] Specialty Paint Roller Winder Hematology/Oncology 12/31/24 Clinical Care Leader Relationship Specialty Start Date End Date Efrain Peters DO [address] [place] [address] PCP - General Family Medicine 11/06/18 Marisa Allen APRN.LANDCARE OFFICER [address] [place] [address] Delivery Coordinator Family Medicine 09/23/24 Mike Malagon MD [address] [address] [place] [address] General Surgery 12/31/24 Onel Dumont MD [address] [place] [address] Hematology/Oncology 12/31/24 Dione Witt, HIMANSHU [address] [place] [address] Specialty Paint Roller Winder Hematology/Oncology 12/31/24 Clinical Care Leader Relationship Specialty Start Date End Date Efrain Peters DO [address] [place] [address] PCP - General Family Medicine 11/06/18 Marisa Allen APRN.LANDCARE OFFICER [address] [place] [address] Delivery Coordinator Family Medicine 09/23/24 Mike Malagon MD [address] [facility] [address] [place] [address] General Surgery 12/31/24 Onel Dumont MD [address] [facility] [place] [address] Hematology/Oncology 12/31/24 Dione Witt, RN [address] [place] [address] Specialty Paint Roller Winder Hematology/Oncology 12/31/24 Clinical Care Leader Relationship Specialty Start Date End Date Efrain Peters DO [address] [place] [address] PCP - General Family Medicine 11/06/18 Marisa Allen APRN.LANDCARE OFFICER [address] [place] [address] [facility] 09/23/24 Mike Malagon MD [address] [facility] [address] [place] [address] General Surgery 12/31/24 Onel Dumont MD [address] [place] [address] Hematology/Oncology 12/31/24 Dioen Witt, RN [address] [place] [address] Specialty Paint Roller Winder Hematology/Oncology 12/31/24 Clinical Care Leader Relationship Specialty Start Date End Date Efrain Peters DO [address] [place] [address] PCP - General Family Medicine 11/06/18 Marisa Allen APRN.LANDCARE OFFICER [address] [place] [address] Delivery Coordinator Family Medicine 09/23/24 Mike Malagon MD [address] [place] [address] General Surgery 12/31/24 Onel Dumont MD [address] [place] [address] Hematology/Oncology 12/31/24 Dione Witt, HIMANSHU [address] [place] [address] Specialty Paint Roller Winder Hematology/Oncology 12/31/24 Clinical Care Leader Relationship Specialty Start Date End Date Efrain Peters DO [address] [place] [address] PCP - General Family Medicine 11/06/18 Marisa Allen, GARFIELD.LANDCARE OFFICER [address] [place] [address] Delivery Coordinator Family Medicine 09/23/24 Mike Malagon MD [address] [facility] [address] [place] [address] General Surgery 12/31/24 Onel Dumont MD [address] [place] [address] Hematology/Oncology 12/31/24 Dione Witt, HIMANSHU [address] [facility] [place] [address] Specialty Paint Roller Winder Hematology/Oncology 12/31/24 Clinical Care Leader Relationship Specialty Start Date End Date Efrain Peters DO [address] [facility] [place] [address] PCP - General Family Medicine 11/06/18 Marisa Allen, ANESTHESIOLOGY TEACHER.LANDCARE OFFICER [address] [facility] [place] [address] Delivery Coordinator Family Medicine 09/23/24 Mike Malagon MD [address] [place] [address] General Surgery 12/31/24 Onel Dumont MD [address] [facility] [place] [address] Hematology/Oncology 12/31/24 Dione Witt, HIMANSHU [address] [facility] [place] [address] Specialty Paint Roller Winder Hematology/Oncology 12/31/24 Imelda Fu, ANESTHESIOLOGY TEACHER.LANDCARE OFFICER [address] [place] [address] Delivery Coordinator Family Medicine 04/01/25 Clinical Care Leader Relationship Specialty Start Date End Date Efrain Peters DO [address] [facility] [place] [address] PCP - General Family Medicine 11/06/18 Marisa Allen, ANESTHESIOLOGY TEACHER.LANDCARE OFFICER [address] [facility] [place] [address] Delivery Coordinator Family Medicine 09/23/24 Mike Malagon MD [address] [place] [address] General Surgery 12/31/24 Onel Dumont MD [address] [facility] [place] [address] Hematology/Oncology 12/31/24 Dione Witt, HIMANSHU [address] [facility] [place] [address] Specialty Paint Roller Winder Hematology/Oncology 12/31/24 Imelda Fu APRN.LANDCARE OFFICER [address] [place] [address] Delivery Coordinator Family Medicine 04/01/25 Clinical Care Leader Relationship Specialty Start Date End Date Efrain Peters DO [address] [facility] [place] [address] PCP - General Family Medicine 11/06/18 Marisa Allen APRN.LANDCARE OFFICER [address] [facility] [place] [address] Delivery Coordinator Family Medicine 09/23/24 Mike Malagon MD [address] [place] [address] General Surgery 12/31/24 Onel Dumont MD [address] [facility] [place] [address] Hematology/Oncology 12/31/24 Dione Witt RN [address] [facility] [place] [address] Specialty Paint Roller Winder Hematology/Oncology 12/31/24 Imelda Fu, ANESTHESIOLOGY TEACHER.LANDCARE OFFICER [address] [place] [address] Delivery Coordinator Family Medicine 04/01/25 Clinical Care Leader Relationship Specialty Start Date End Date Efrain Peters DO [address] [facility] [place] [address] PCP - General Family Medicine 11/06/18 Marisa Allen APRN.LANDCARE OFFICER [address] [facility] [place] [address] Delivery Coordinator Family Medicine 09/23/24 Mike Malagon MD [address] [place] [address] General Surgery 12/31/24 Onel Dumont MD [address] [place] [place] [address] Hematology/Oncology 12/31/24 Dione Witt, HIMANSHU [address] [facility] [place] [address] Specialty Paint Roller Winder Hematology/Oncology 12/31/24 Imelda Fu, ANESTHESIOLOGY TEACHER.LANDCARE OFFICER [address] [place] [address] Delivery Coordinator Family Medicine 04/01/25 Clinical Care Leader Relationship Specialty Start Date End Date Efrain Peters DO [address] [facility] [place] [address] PCP - General Family Medicine 11/06/18 Marisa Allen ANESTHESIOLOGY TEACHER.LANDCARE OFFICER [address] [facility] [place] [address] Delivery Coordinator Family [facility] 09/23/24 Mike Malagon MD [address] [place] [address] General Surgery 12/31/24 Onel Dumont MD [address] [facility] [place] [address] Hematology/Oncology 12/31/24 Dione Witt RN [address] [facility] [place] [address] Specialty Paint Roller Winder Hematology/Oncology 12/31/24 Imelda Fu, ANESTHESIOLOGY TEACHER.LANDCARE OFFICER [address] [place] [address] [facility] 04/01/25 Clinical Care Leader Relationship Specialty Start Date End Date Efrain Peters DO [address] [facility] [place] [address] PCP - General Family Medicine 11/06/18 Marisa Allen, ANESTHESIOLOGY TEACHER.LANDCARE OFFICER [address] [facility] [place] [address] [facility] 09/23/24 Mike Malagon MD [address] [place] [address] General Surgery 12/31/24 Onel Dumont MD [address] [place] [place] [address] Hematology/Oncology 12/31/24 Dione Witt, HIMANSHU [address] [place] [address] Specialty Paint Roller Winder Hematology/Oncology 12/31/24 Imelda Fu, GARFIELD.LANDCARE OFFICER [address] [place] [address] Delivery Coordinator Family Medicine 04/01/25 Clinical Care Leader Relationship Specialty Start Date End Date Efrain Peters DO [address] [facility] [place] [address] PCP - General Family Medicine 11/06/18 Marisa Allen APRN.LANDCARE OFFICER [address] [facility] [place] [address] Delivery Coordinator Family Medicine 09/23/24 [place] [address] [place] [address], [place] [address] General Surgery 12/31/24 Onel Dumont MD [address] [place] [address] Hematology/Oncology 12/31/24 Dione Witt, HIMANSHU [address] [place] [address] Specialty Paint Roller Winder Hematology/Oncology 12/31/24 Imelda Fu, ANESTHESIOLOGY TEACHER.LANDCARE OFFICER [address] [place] [address] Delivery Coordinator Family [facility] 04/01/25 Clinical Care Leader Relationship Specialty Start Date End Date Efrain Peters DO [address] [facility] [place] [address] PCP - General Family Medicine 11/06/18 Marisa Allen, ANESTHESIOLOGY TEACHER.LANDCARE OFFICER [address] [facility] [place] [address] Delivery Coordinator Family [facility] 09/23/24 Mike Malagon MD [address] [place] [address] General Surgery 12/31/24 Onel Dumont MD [address] [facility] [place] [address] Hematology/Oncology 12/31/24 Dione Witt, HIMANSHU [address] [facility] [place] [address] Specialty Paint Roller Winder Hematology/Oncology 12/31/24 Imelda Fu, ANESTHESIOLOGY TEACHER.LANDCARE OFFICER [address] [place] [address] [facility] 04/01/25 Clinical Care Leader Relationship Specialty Start Date End Date Efrain Peters DO [address] [facility] [place] [address] PCP - General Family Medicine 11/06/18 Marisa Allen, ANESTHESIOLOGY TEACHER.LANDCARE OFFICER [address] [facility] [place] [address] Delivery Coordinator Family [facility] 09/23/24 Mike Malagon MD [address] [facility] [address] [place] [address] General Surgery 12/31/24 Onel Dumont MD [address] [facility], [place] [address] Hematology/Oncology 12/31/24 Dione Witt, HIMANSHU [address] [place] [address] Specialty Paint Roller Winder Hematology/Oncology 12/31/24 Imelda Fu APRN.LANDCARE OFFICER [address] [place] [address] Delivery Coordinator Family Medicine 04/01/25 Team Status: Active Member Role/Relationship Status Dates Dr. Efrain Peters DO Primary Care Provider Active Team Status: Inactive Member Role/Relationship Status Dates Dr. Efrain Peters DO Primary Care Provider Active Start: January 02, 2025 End: January 02, 2025 Dr. Efrain Peters DO Referring Provider Active Start: January 02, 2025 End: January 02, 2025 Urbano BERNAL PA-C Attending Provider Active Start: January 02, 2025 End: January 02, 2025 Team Status: Inactive Member Role/Relationship Status Dates Dr. Efrain Peters DO Primary Care Provider Active Start: April 24, 2025 End: April 24, 2025 Dr. Onel Dumont MD Attending Provider Active Start: April 24, 2025 End: April 24, 2025 Dr. Onel Dumont MD Referring Provider Active Start: April 24, 2025 End: April 24, 2025 Clinical Care Leader Relationship Specialty Start Date End Date Efrain Peters DO [address] [place], [place] [id number] PCP - General Family Medicine 11/06/18 Marisa Allen APRN.LANDCARE OFFICER [address] [place] [address] Delivery Coordinator Family Medicine 09/23/24 Mike Malagon MD [address] [facility] [address] [place] [address] General Surgery 12/31/24 Onel Dumont MD [address] [facility] [place] [address] Hematology/Oncology 12/31/24 Dione Witt RN [address] [place] [address] Specialty Paint Roller Winder Hematology/Oncology 12/31/24 Imelda Fu, ANESTHESIOLOGY TEACHER.LANDCARE OFFICER [address] [place] [address] Delivery Coordinator Family Medicine 04/01/25 Clinical Care Leader Relationship Specialty Start Date End Date Efrain Peters DO [address] [place] [address] PCP - General Family Medicine 11/06/18 Marisa Allen, ANESTHESIOLOGY TEACHER.LANDCARE OFFICER [address] [facility] [place] [address] Delivery Coordinator Family Medicine 09/23/24 Mike Malagon MD [address] [address] [place] [address] General Surgery 12/31/24 Onel Dumont MD [address] [place] [address] Hematology/Oncology 12/31/24 Dione Witt RN [address] [facility] [place] [address] Specialty Paint Roller Winder Hematology/Oncology 12/31/24 Imelda Fu, GARFIELD.LANDCARE OFFICER [address] [place] [address] Delivery Coordinator Family Medicine 04/01/25 Clinical Care Leader Relationship Specialty Start Date End Date Efrain Peters DO [address] [place] [address] PCP - General Family Medicine 11/06/18 Marisa Allen APRN.LANDCARE OFFICER [address] [place] [address] Delivery Coordinator Family Medicine 09/23/24 [place] [address] [place] [address] General Surgery 12/31/24 Onel Dumont MD [address] [facility] [place] [address] Hematology/Oncology 12/31/24 Dione Witt, HIMANSHU [address] [facility] [place] [address] Specialty Paint Roller Winder Hematology/Oncology 12/31/24 Imelda Fu, ANESTHESIOLOGY TEACHER.LANDCARE OFFICER [address] [place] [address] Delivery Coordinator Family [facility] 04/01/25 Clinical Care Leader Relationship Specialty Start Date End Date Efrain Petesr DO [address] [facility] [address] PCP - General Family Medicine 11/06/18 Marisa Allen, ANESTHESIOLOGY TEACHER.LANDCARE OFFICER [address] [facility] [place] [address] Delivery Coordinator Family Medicine 09/23/24 Mike Malagon MD [address] [facility] [address] [place] [address] General Surgery 12/31/24 Onel Dumont MD [address] [facility] [place] [address] Hematology/Oncology 12/31/24 Dione Witt, HIMANSHU [address] [facility] [place] [address] Specialty Paint Roller Winder Hematology/Oncology 12/31/24 Imelda Fu, ANESTHESIOLOGY TEACHER.LANDCARE OFFICER [address] [place] [address] [facility] 04/01/25 Clinical Care Leader Relationship Specialty Start Date End Date Efrain Peters DO [address] [facility] [place] [address] PCP - General Family Medicine 11/06/18 Marisa Allen, ANESTHESIOLOGY TEACHER.LANDCARE OFFICER [address] [facility] [place] [address] Delivery Coordinator Family Medicine 09/23/24 Mike Malagon MD [address] [place] [address] General Surgery 12/31/24 Onel Dumont MD [address] [place] [address] Hematology/Oncology 12/31/24 Dione Witt, HIMANSHU [address] [place] [address] Specialty Paint Roller Winder Hematology/Oncology 12/31/24 Imelda Fu, ANESTHESIOLOGY TEACHER.LANDCARE OFFICER [address] [facility] [place] [address] Delivery Coordinator Family Medicine 04/01/25 Clinical Care Leader Relationship Specialty Start Date End Date Efrain Peters DO [address] [place] [address] PCP - General Family Medicine 11/06/18 Marisa Allen APRN.LANDCARE OFFICER [address] [place] [address] Delivery Coordinator Family Medicine 09/23/24 Mike Malagon MD [address] [address] [place] [address] General Surgery 12/31/24 Onel Dumont MD [address] [place] [address] Hematology/Oncology 12/31/24 Dione Witt, HIMANSHU [address] [place] [address] Specialty Paint Roller Winder Hematology/Oncology 12/31/24 Imelda Fu, ANESTHESIOLOGY TEACHER.LANDCARE OFFICER [address] [facility] [place] [address] Delivery Coordinator Family Medicine 04/01/25 Clinical Care Leader Relationship Specialty Start Date End Date Efrain Peters DO [address] [facility] [place] [address] PCP - General Family Medicine 11/06/18 Marisa Allen, ANESTHESIOLOGY TEACHER.LANDCARE OFFICER [address] [facility] [place] [address] Delivery Coordinator Family Medicine 09/23/24 Mike Malagon MD [address] [place] [address] General Surgery 12/31/24 Onel Dumont MD [address] [facility] [place] [address] Hematology/Oncology 12/31/24 Dione Witt RN [address] [facility] [place] [address] Specialty Paint Roller Winder Hematology/Oncology 12/31/24 Imelda Fu, ANESTHESIOLOGY TEACHER.LANDCARE OFFICER [address] [place] [address] [facility] 04/01/25 Clinical Care Leader Relationship Specialty Start Date End Date Efrain Peters DO [address] [facility] [place] [address] PCP - General Family Medicine 11/06/18 Marisa Allen, ANESTHESIOLOGY TEACHER.LANDCARE OFFICER [address] [facility] [place] [address] Delivery Coordinator Family Medicine 09/23/24 Mike Malagon MD [address] [address] [place] [address] General Surgery 12/31/24 Onel Dmuont MD [address] [place] [address] Hematology/Oncology 12/31/24 Dione Witt, HIMANSHU [address] [place] [address] Specialty Paint Roller Winder Hematology/Oncology 12/31/24 Imelda Fu APRN.LANDCARE OFFICER [address] [facility] [place] [address] Delivery Coordinator Family Medicine 04/01/25 Clinical Care Leader Relationship Specialty Start Date End Date Efrain Peters DO [address] [place] [address] PCP - General Family Medicine 11/06/18 Marisa Allen APRN.LANDCARE OFFICER [address] [place] [address] Delivery Coordinator Family Medicine 09/23/24 Mike Malagon MD [address] [address] [place] [address] General Surgery 12/31/24 Onel Dumont MD [address] [place] [address] Hematology/Oncology 12/31/24 Dione Witt, HIMANSHU [address] [place] [address] Specialty Paint Roller Winder Hematology/Oncology 12/31/24 Imelda Fu, ANESTHESIOLOGY TEACHER.LANDCARE OFFICER [address] [place] [address] Delivery Coordinator Family Medicine 04/01/25 Clinical Care Leader Relationship Specialty Start Date End Date Efrain Peters DO [address] [facility] [place] [address] PCP - General Family Medicine 11/06/18 Marisa Allen APRN.LANDCARE OFFICER [address] [place] [address] Delivery Coordinator Family Medicine 09/23/24 Mike Malagon MD [address] [address] General Surgery 12/31/24 Onel Dumont MD [address] [facility] [place] [address] Hematology/Oncology 12/31/24 Dione Witt, HIMANSHU [address] [place] [address] Specialty Paint Roller Winder Hematology/Oncology 12/31/24 Imelda Fu, ANESTHESIOLOGY TEACHER.LANDCARE OFFICER [address] [place] [address] Delivery Coordinator Family Medicine 04/01/25 Clinical Care Leader Relationship Specialty Start Date End Date Efrain Peters DO [address] [facility] [place] [address] PCP - General Family Medicine 11/06/18 Marisa Allen APRN.LANDCARE OFFICER [address] [place] [address] Delivery Coordinator Family Medicine 09/23/24 Mike Malagon MD [address] [facility] [address] [place] [address] General Surgery 12/31/24 Onel Dumont MD [address] [facility] [place] [address] Hematology/Oncology 12/31/24 Dione Witt RN [address] [place] [address] Specialty Paint Roller Winder Hematology/Oncology 12/31/24 Imelda Fu, ANESTHESIOLOGY TEACHER.LANDCARE OFFICER [address] [place] [address] Delivery Coordinator Family Medicine 04/01/25 Clinical Care Leader Relationship Specialty Start Date End Date Efrain Peters DO [address] [place] [address] PCP - General Family Medicine 11/06/18 Marisa Allen, ANESTHESIOLOGY TEACHER.LANDCARE OFFICER [address] [facility] [place] [address] Delivery Coordinator Family Medicine 09/23/24 Mike Malagon MD [address] [address] [place] [address] General Surgery 12/31/24 Onel Dumont MD [address] [place] [address] Hematology/Oncology 12/31/24 Dione Witt, HIMANSHU [address] [place], [place] [id number] Specialty Paint Roller Winder Hematology/Oncology 12/31/24 Imelda Fu APRN.LANDCARE OFFICER [address] [place], [place] [id number] Delivery Coordinator Family Medicine 04/01/25 Team Status: Inactive Member Role/Relationship Status Dates Dr. Efrain Peters DO Primary Care Provider Active Start: April 24, 2025 End: April 24, 2025 Dr. Onel Dumont MD Attending Provider Active Start: April 24, 2025 End: April 24, 2025 Dr. Onel Dumont MD Referring Provider Active Start: April 24, 2025 End: April 24, 2025 Team Status: Active Member Role/Relationship Status Dates Dr. Efrain Peters DO Primary Care Provider Active Start: June 24, 2025 Dr. Molly Lizarraga DO Emergency Provider Active Start: June 24, 2025 Dr. Bandar Salmeron DO Admit Provider Active Start: June 24, 2025 Dr. Bandar Salmeron DO Attending Provider Active Start: June 24, 2025 Team Status: Inactive Member Role/Relationship Status Dates Dr. Efrain Peters DO Primary Care Provider Active Start: June 24, 2025 End: June 25, 2025 Dr. Molly Lizarraga DO Emergency Provider Active Start: June 24, 2025 End: June 25, 2025 Dr. Bandar Salmeron DO Admit Provider Active Start: June 24, 2025 End: June 25, 2025 Dr. Bandar Salmeron DO Other Provider Active Start: June 24, 2025 End: June 25, 2025 Dr. Zaki Mosquera MD Attending Provider Active Start: June 24, 2025 End: June 25, 2025 Clinical Care Leader Relationship Specialty Start Date End Date Efrain Peters DO [address] [place], [place] [id number] PCP - General Family Medicine 11/06/18 Marisa Allen APRN.LANDCARE OFFICER [address] [facility], [place] [id number] [facility] 09/23/24 Mike Malagon MD [address] [id number] General Surgery 12/31/24 Onel Dumont MD [address] [facility], [place] [id number] Hematology/Oncology 12/31/24 Dione Witt RN [address] [facility], [place] [id number] Specialty Paint Roller Winder Hematology/Oncology 12/31/24 Imelda Fu APRN.LANDCARE OFFICER [address] [place], [place] [id number] [facility] 04/01/25 Scheduled Active and Recently Administ ered Medications (unrecognized section and content) Medication Order 12/03/2024 12/04/2024 12/05/2024 sodium chloride 0.9% (NS) flush 10 mL 10 mL, IntraVENous, Every 12 hours scheduled (2 times per day), First dose on Tue12/05/24 at 1100, Preprocedure 1100 (Canceled Entry - Provider: Automatic Discharge Provider - Comment: Automatically canceled at discontinue of medication order) PRN Medication Order 12/03/2024 12/04/2024 12/05/2024 ondansetron (Zofran) injection 4 mg 4 mg, IntraVENous, Once PRN, nausea, vomiting, Starting on Tue12/05/24 at 1054, For 1 dose, Preprocedure sodium chloride 0.9 % infusion 5-250 mL/hr, IntraVENous, PRN, if patient receiving piggyback infusions and maintenance fluids are not ordered OR KVO fluids to protect IV site / prevent frequent line interruptions/ long duration, Starting on Tue12/05/24 at 1054, Preprocedure, For piggyback infusion, administer at same rate as piggyback for a total of 25 mL. Enter 25 mL into dose field and piggyback rate into rate field of order. If piggyback is infusing at a rate less than 100 mL/hr, enter 25 mL into dose field and 100 mL/hr into rate field of order. For KVO fluids, enter rate of 20 mL/hr or less into rate field of order. 1406 (New Bag - Prov ider: GARIFELD Leon CRNA)1500 (Anesthesia Volume Adjustment - Provider: GARFIELD Leon CRNA) sodium chloride 0.9 % infusion 5-250 mL/hr, IntraVENous, PRN, if patient receiving piggyback infusions and maintenance fluids are not ordered OR KVO fluids to protect IV site / prevent frequent line interruptions/ long duration, Starting on Tue12/05/24 at 1054, Preprocedure, For piggyback infusion, administer at same rate as piggyback for a total of 25 mL. Enter 25 mL into dose field and piggyback rate into rate field of order. If piggyback is infusing at a rate less than 100 mL/hr, enter 25 mL into dose field and 100 mL/hr into rate field of order. For KVO fluids, enter rate of 20 mL/hr or less into rate field of order. sodium chloride 0.9% (NS) flush 10 mL 10 mL, IntraVENous, PRN, line care, Starting on Tue12/05/24 at 1054, Preprocedure, After every IV line use (unrecognized sect ion and content) No Status Records FoundNo Status Records FoundNo Status Records FoundNo Status Records FoundNo Status Records Found INFORMATION SOURCE (unrecogn ized section and content) DATE CREATED AUTHOR 12/11/2024 [facility] DATE CREATED AUTHOR AUTHOR'S ORGANIZ ATION 05/25/2025 [facility] DATE CREATED AUTHOR AUTHOR'S ORGANIZ ATION 06/06/2025 [facility] DATE CREATED AUTHOR AUTHOR'S ORGANIZ ATION 06/25/2025 [facility] DATE CREATED AUTHOR AUTHOR'S ORGANIZ ATION 06/25/2025 [facility] Goals (unrecognized section and content) Goals may be documented in a n alternate sectionGoals may be documented in an alternate section FOR RECORDS PERTAINING TO PATIENTS WHO ARE OR HAVE BEEN ENROLLED IN A CHEMICAL DEPENDENCY/SUBSTANCEABUSE PROGRAM, SOME INFORMATION MAY BE OMITTED. This clinical summary was aggregated from multiple sources. Caution should be exercised in using it in the provision of clinical care. This summary normalizes information from multiple sources, and as a consequence, information in this document may materially change the coding, format and clinical context of patient data. In addition, data may be omitted in some cases. CLINICAL DECISIONS SHOULD BE BASED ON THE PRIMARY CLINICAL RECORDS. [facility]. provides no warranty or guarantee of the accuracy or completeness of information in this document.
--- NOTE | 2025-06-26 07:06 | ED.RN ---
Per Dr. Shetty, after the patient rests for an hour, the patient is alert and awake in order to drive himself home. The patient agrees and is comfortable with this plan. Care turned over to HIMANSHU Harding.
--- NOTE | 2025-06-26 08:14 | ED.RN ---
This nurse was advised from report/hand-off from Samra Lynn RN. that Dr Shetty advised her pt is clear to be d/c and drive home after he rest for another hour. Pt feels pain is controlled and he feels clear and strong to drive. Pt's came up just as this nurse was d/c pt.
== END 2025-06-26 08:17 | disposition home or self-care (01) ==
PROVIDERS: Emergency Provider Emergency Medicine; PCP Student in an Organized Health Care Education/Training Program; Visit Provider Emergency Medicine
DX: R10.10 Upper abdominal pain, unspecified (principal); C22.1 Intrahepatic bile duct carcinoma; C76.2 Malignant neoplasm of abdomen; R11.2 Nausea with vomiting, unspecified; D69.6 Thrombocytopenia, unspecified; E03.9 Hypothyroidism, unspecified; Z66 Do not resuscitate; Z79.890 Hormone replacement therapy; Z79.899 Other long term (current) drug therapy
CPT/HCPCS: 80053; 85025; 93005; 96361; 96374; 96375; 99284; A4216; J2405

== ENCOUNTER 2025-07-22 11:33 | Outpatient (CLI) | payer MEDICARE, SELFPAY ==
[2025-07-22 11:46] VITALS: BP 89/55; PULSE 99; RESP 16; TEMP 36.2; O2SAT 94; BMI 21.8
[2025-07-22 12:47] VITALS: BP 90/50; PULSE 93; RESP 16; TEMP 35.9
[2025-07-22 13:47] VITALS: BP 112/55; PULSE 87; RESP 16; TEMP 36.9
[2025-07-22 14:18] VITALS: BP 119/50; PULSE 89; RESP 16; TEMP 36.8; O2SAT 97
== END 2025-07-22 23:59 | disposition home or self-care (01) ==
LOC: MEDOUTP 11:33
PROVIDERS: PCP Student in an Organized Health Care Education/Training Program; Referring Provider Internal Medicine Hematology & Oncology; Visit Provider Internal Medicine Hematology & Oncology
DX: D64.81 Anemia due to antineoplastic chemotherapy (principal)
CPT/HCPCS: 36430; 86850; 86900; 86901; P9016; A4216